=== PATIENT | female | born 2000 | race Caucasian/White ===

== ENCOUNTER 2024-08-07 20:55 | Emergency (ER) | payer OTHER, SELFPAY ==
[2024-08-07 21:04] VITALS: BP 128/90; PULSE 74; TEMP 36.6; O2SAT 96; BMI 44.5
--- NOTE | 2024-08-07 21:21 | ED.GENADUL1 ---
HPI HPI - General Adult General Chief complaint: Ear Stated complaint: EAR PAIN Time Seen by Provider: 08/07/24 21:07 Source: patient Mode of arrival: walk-in Limitations: no limitations History of Present Illness HPI narrative: Patient presenting to the emergency department for evaluation of left ear pain. Patient states approximately week ago she noted she was having left ear pain. Was seen by her PCP, started on clindamycin. He states that she did not have an ear infection, but the ear was full, filled with fluid. She states that over the last week the pain has persisted, and over the last day or 2 she feels like the pain is just a throbbing aching sensation in the left ear, and it feels like hearing through that side is very muffled. No acute changes today. No blurry vision, double vision, no pain in the back of her head or the neck noted, time Related Data Previous Rx's ?Medication ?Instructions ?Recorded naproxen 500 mg tablet 500 mg PO Q12H PRN pain #20 tabs 08/07/24 prednisone 50 mg tablet 50 mg PO DAILY 5 days #5 tabs 08/07/24 Allergies Allergy/AdvReac Type Severity Reaction Status Date / Time No Known Drug Allergies Allergy Verified 08/07/24 21:08 Opioid HPI Opioid Management Most Recent Opioid Data: Last ED Pain Assessment 08/07/24 21:22 Review of Systems ROS Narrative Negative unless otherwise stated in the HPI PFSH PFSH Social History Little interest or pleasure in doing things: not at all Feeling down, depressed, or hopeless: not at all Exam Narrative Exam Narrative: General: NAD, AAOx3, no distress HEENT: NCAT, mmm, right side TMs normal, left TM hyperemic, fluid without purulence, no infection noted, no bulging of the TM, positive cone of light was noted, no lymphangitis/lymphedema, midline uvula, no exudates, normal tonsils without hypertrophy or exudates Neck: Supple, no LAD, negative Kernig/Brudzinski, non meningeal, no bruit Constitutional Vital Signs, click to edit/add: Last Vital Signs Temp 97.8 F 08/07/24 21:04 Pulse 74 08/07/24 21:04 Resp 16 08/07/24 21:04 BP 128/90 08/07/24 21:04 Pulse Ox 96 08/07/24 21:04 O2 Del Method Room Air 08/07/24 21:04 Course Vital Signs Vital signs: Vital Signs Temperature 97.8 F 08/07/24 21:04 Pulse Rate 74 08/07/24 21:04 Respiratory Rate 16 08/07/24 21:04 Blood Pressure 128/90 08/07/24 21:04 Pulse Oximetry 96 08/07/24 21:04 Oxygen Delivery Method Room Air 08/07/24 21:04 Temperature 97.8 F 08/07/24 21:04 Pulse Rate 74 08/07/24 21:04 Respiratory Rate 16 08/07/24 21:04 Blood Pressure 128/90 08/07/24 21:04 Pulse Oximetry 96 08/07/24 21:04 Oxygen Delivery Method Room Air 08/07/24 21:04 Medical Decision Making MDM Narrative Medical decision making narrative: I discussed with patient that she has potential eustachian tube dysfunction, she is currently on clindamycin, but no signs or symptoms of otitis media. Will assist with steroid and anti-inflammatory packs. Advanced guidance has been given. Vss, pex is benign at this time. Pt to fu with pcp 1-2 days for reeval, rter should sx worsen, persist or become worrysome in any way. All incidental laboratory studies, EKG, radiologic findings have been noted and discussed with patient. Patient was reevaluated with a benign exam at this time. Pt expressed understanding and agreement with plan of care at this time. Will fu as planned. Pt stable for discharge. Discharge Plan Discharge Chief Complaint: Ear Clinical Impression: Dysfunction of eustachian tube Patient Disposition: Home, Self-Care Time of Disposition Decision: 21:24 Condition: Good Prescriptions / Home Meds: New prednisone 50 mg tablet 50 mg PO DAILY 5 Days Qty: 5 0RF naproxen 500 mg tablet 500 mg PO Q12H PRN (Reason: pain) Qty: 20 0RF Print Language: [place] Instructions: Fluid In The Ear (Serous Otitis Media) (ED) Additional Instructions: Follow-up with your PCP in the next 1 to 2 days. Return to the emergency department should symptoms worsen or become worrisome in any way. Referrals: Tuan Booker DO [Primary Care Provider] - 1 week
[2024-08-07] MEDS: METHYLPREDNISOLONE SOD SUCC PF 125 MG/2 ML VIAL IM (21:37)
[2024-08-07] MEDS: KETOROLAC TROMETHAMINE 30 MG/ML VIAL 15 MG IM (21:38)
== END 2024-08-07 21:44 | disposition home or self-care (01) ==
PROVIDERS: Emergency Provider Emergency Medicine; PCP Family Medicine
DX: H69.92 Unspecified Eustachian tube disorder, left ear (principal)
CPT/HCPCS: 96372; 99284; J1885; J2919

== ENCOUNTER 2025-05-24 23:03 | Emergency (ER) | payer OTHER, SELFPAY ==
--- OUTSIDE RECORDS SUMMARY | 2017-08-27 07:56 | XMS_ITS | Continuity of Care Document ---
Author Organization [facility] Address [address] [place] [address] Phone Care Team Providers Care Museum Preparator Name Role Phone Zoran Handy MD Unavailable Unavailable Advance Directives Directive Yes / No Effective Date File Name No Information Encounters Encounter Description Practice Location Reason(s) For Visit Diagnoses Date Provider Providers Copied on Encounter [facility], [address] [place], [place], [id number], [place] tel:[phone] [facility] No Information Ole Meehan. [address], [place], [id number], [place]. tel:[phone] Family History Family Member Type Diagnosis Age At Onset No Information Payers Payer name Insurance type Covered green party ID Authoriza tion(s) No Information Social [...]
[2025-05-24] VITALS (7 sets, daily range): BP systolic 112–123; BP diastolic 78–84; PULSE 72; TEMP 36.9; O2SAT 96–100; BMI 43.1
--- OUTSIDE RECORDS SUMMARY | 2025-05-24 23:12 | XMS_ITS | Patient Health Record ---
Author Organization [facility] Address [address] [address] Support Name Relationship Address Phone Jaylyn Crawford Guarantor Unknown Unavailab le Reason For Referral No Information Plan Of Treatment No Information Insurance Providers Payer Name Payer Address Payer Phone Subscriber Number Group Number Insured Name Patient Relationship to Insured Coverage Start Date Coverage End Date [employer] [address] [address] [place] [address] [id number] Jaylyn Pizano Self - patient is the insured
--- OUTSIDE RECORDS SUMMARY | 2025-05-24 23:12 | XMS_ITS | Encounter Summary ---
Author Organization [facility] Address [address] [place] [address] Care Team Providers Care Certified Pediatric Nurse Practitioner Name Role Phone Tuan Booker DO Primary Care Provider [phone] Herman Thomas DO Unavailable Encounter Details Date Type Department Care Team (Late st Contact Info) Description 10/19/2024 External Result Encounter [facility] External Department Unsolicited Herman Thomas, DO [address] [place] [address] Social History Tobacco Use Types Packs/Day Years Used Date Smoking Tobacco: Never Smokeless Tobacco: Never Alcohol Use Standard Drinks/Week Comments Never 0 (1 standard drink = 0.6 oz pur e alcohol) Caffeine: none Comments Unknown Sex and Gender Information Value Date Recorded Sex Assigned at Not on file Legal Sex Female 6:51 PM EDT Gender Identity Not on file Sexual Orientation Not on file documented as of this encounter Plan of Treatment Not on file documented as of this encounter Procedures Procedure Name Priority Date/Time Associated Diagnosis Comments ECG 12-LEAD 10/19/2024 5:03 PM EST documented in this encounter Results * ECG 12 lead (10/19/2024 5:03 PM EST) 10/19/2024 5:03 PM EST [facility] - 10/20/2024 2:54 PM EST [facility] [address] [address] Electrocardiograph Report Signed Patient: Jaylyn Crawford MR#: [id number] : 2000 Acct:[id number] Age/Sex: 24 / F ADM Date: 10/19/24 Loc: PS Room: Type: DEP CLI Attending Dr: Herman Thomas DO Ordering Provider: Herman Thomas DO Date of Service: 10/19/24 ECG/ECG 12 lead ECG: pst Copies to: Test Reason : Blood Pressure : */* mmHG Vent. Rate : 91 BPM Atrial Rate : 91 BPM P-R Int : 154 ms QRS Dur : 94 ms QT Int : 374 ms P-R-T Axes : 46 76 15 degrees QTcB Int : 460 ms Normal sinus rhythm Normal ECG No previous ECGs available Confirmed by Marcos Trinh ([id number]) on 10/20/2024 2:54:29 PM Referred By: Electronically Signed By: Marcos Trinh Transcribed By: MUS Signed By Marcos Trinh MD 10/20/24 1454 Procedure Note Jefe Trinh MD - 10/20/2024 [facility] [address] [place] [address] [place] [address] Electrocardiograph Report Signed Patient: Jaylyn Crawford MMR#: [id number] : 2000Acct:[id number] Age/Sex: 24 / FADM Date: 10/19/24 Loc: PS Room:Type: DEP CLI Attending Dr: Herman Thomas DO Ordering Provider: Herman Thomas DO Date of Service: 10/19/24 ECG/ECG 12 lead ECG: pst Copies to: Test Reason : Blood Pressure : */* mmHG Vent. Rate : 91 BPM Atrial Rate : 91 BPM P-R Int : 154 ms QRS Dur : 94 ms QT Int : 374 ms P-R-T Axes : 46 76 15 degrees QTcB Int : 460 ms Normal sinus rhythm Normal ECG No previous ECGs available Confirmed by Marcos Trinh ([id number]) on 10/20/2024 2:54:29 PM Referred By: Electronically Signed By: Marcos Trinh Transcribed By: MUS Signed By Marcos Trinh MD 10/20/24 1454 us Herman Thomas DO ECG ORDERABLES Final Resul t [facility] [address] [place] [address], documented in this encounter Visit Diagnoses Not on filedocumented in this encounter Care Teams Certified Pediatric Nurse Practitioner Relationship Specialty Start Date End Date Tuan Booker DO [address] [place] [id number] PCP - General 10/18/24 Herman Thomas, DO [address] [place] [address] Otolaryngology 10/18/24 documented as of this encounter
--- OUTSIDE RECORDS SUMMARY | 2025-05-24 23:12 | XMS_ITS | CCD ---
Author Organization [facility] Care Team Providers Care Physician Extender Name Role Phone DR TUAN HAAS Attending Unavailable WALDO, DR DICKERSON Consulting Unavailable DR TUAN HAAS Admitting Unavailable TUAN HAAS Primary Care Physician [phone] Rosmery PHAM Unavailable Rosmery Camacho Unavailable Tuan Haas Unavailable DO Tuan Haas Primary Care Provider DO Tuan Haas Attending Provider DO Tuan Haas Primary Care Provider DO Tuan Haas Attending Provider You Wilkerson Admitting Unavailable RheaYou valdez Attending Unavailable RheaYou valdez Admitting Unavailable RheaYou Attending Unavailable Russel SPANN Admitting Unavailable Russel SPANN Attending Unavailable RheaYou Attending Unavailable RheaYou Admitting Unavailable RheaYou Admitting Unavailable RheaYou Attending Unavailable RheaYou valdez Admitting Unavailable RheaYou valdez Attending Unavailable RheaYou valdez Attending Unavailable RheaYou valdez Admitting Unavailable RheaYou valdez Admitting Unavailable RheaYou Attending Unavailable Jose Tovar H Attending Unavailable Melissa Yates Attending Unavailable RheaYou valdez Attending Unavailable RheaYou valdez Admitting Unavailable RheaYou valdez Attending Unavailable RheaYou valdez Attending Unavailable RheaYou valdez Admitting Unavailable RheaYou valdez Attending Unavailable Rhea, You D Admitting Unavailable Rhea, You Greco Attending Unavailable Rhea, You D Admitting Unavailable Rhea, You D Attending Unavailable Rhea, You D Admitting Unavailable Rhea, You D Attending Unavailable Rhea, You D Admitting Unavailable Rhea, You D Attending Unavailable Rhea, You D Admitting Unavailable Rhea, You D Attending Unavailable Rhea, You D Attending Unavailable Rhea, You D Attending Unavailable Rhea, You D Admitting Unavailable Rhea, You Greco Attending Unavailable Rhae, You D Admitting Unavailable Rhea, You Greco Attending Unavailable Rhea, You Greco Admitting Unavailable Unavailable Primary Care Provider Unavailabl e Tuan Haas DO Primary Care Provider Waldo FLORES, Tuan Attending Provider Tuan Haas MD Primary Care Provider [phone] Murally DO, Herman Lui Unavailable Murally DO, Herman Attending Provider [phone] Tuan Haas Admitting Unavailable Kuns, Tuan Attending Unavailable Kuns, Tuan Primary Care Unavailable Kuns, Tuan Attending Unavailable Kuns, Tuan Primary Care Unavailable Kuns, Tuan Admitting Unavailable Kuns, Tuan Primary Care Unavailable Murcek, Herman Attending Unavailable Murcek, Herman Admitting Unavailable Kuns, Tuan Admitting Unavailable Kuns, Tuan Attending Unavailable Kuns, Tuan Primary Care Unavailable Murcek, Herman Attending Unavailable Murcek, Herman Admitting Unavailable KunTuan greer DO Primary Care Provider Rhea, You Greco Admitting Unavailable Rhea, You Greco Attending Unavailable MURCEK, HERMAN Lui Attending Unavailable KUNSTUAN Referring Unavailable MURCEK, HERMAN Lui Attending Unavailable FELTSHEMAR COLEY Attending Unavailable MURCEK, HERMAN Lui Attending Unavailable MURCEK, HERMAN Lui Attending Unavailable Rhea, You Greco Attending Unavailable Rhea, You Greco Admitting Unavailable Rhea, You Greco Attending Unavailable Rhea, You Greco Admitting Unavailable Medications Current Medications Medication Drug Class(es) Dates Sig (Normalized) Sig (Original) amoxicillin 500 mg / clavulanate 125 mg oral tablet (9 sources) Penicillin-class Antibacterial Start: 10-28-2024 amoxicillin-clavu lanate (Augmentin) 500-125 MG tablet 10/28/2024 Active Start: 09-09-2024 End: 10-11-2024 take 1 tablet by mouth twice daily Amoxicillin-Pot Clavulanate 875-125 mg tablet Discontinued 1 TAB PO Twice daily September 09, 2024 12:00am October 11, 2024 9:34am atropine sulfate 0.025 mg / diphenoxylate hydrochloride 2.5 mg oral tablet (4 sources) Anticholinergic, Cholinergic Muscarinic Antagonist, Antidiarrheal Start: 10-31-2019 Lomotil oral tablet 2 tab(s), Oral, QID for loose stools, 24 tab(s), Refill(s) 0 Start Date: 10/31/19 Status: Ordered Augmentin Tablets 875 MG (7 sources) Start: 09-11-2021 take 1 tablet by mouth every twelve hours Augmentin Tablets 875 MG 1 tablet oral bid for 10 days Sep, Active cephalexin 500 mg oral tablet (20 sources) Cephalosporin Antibacterial Start: 09-16-2022 take 1 tablet by mouth every eight hours Cephalexin 500 MG 1 tablet Orally Three times a day for 10 days Sep, Active Start: 06-29-2021 take 1 capsule by [facility] every eight hours Cephalexin 500 MG 1 capsule Orally TID for 10 days Jun, Active Start: 09-03-2018 take 1 capsule by [facility] every twelve hours Keflex 500 mg Cap 500 mg = 1 cap(s), Oral, q12hr, # 20 cap(s), Refills(s) 0, Pharmacy: [facility] [id number] Start Date: 09/03/18 Status: Ordered Cimetidine (10 sources) Histamine-2 Receptor Antagonist Start: 03-10-2022 clindamycin 10 mg/ml topical lotion (14 sources) Lincosamide Antibacterial Start: 09-11-2023 clindamycin (Cleocin T) 1 % lotion Indications: Acne vulgaris Apply thin later to affected areas on the body during flares, 30 day supply 60 mL 11 09/11/2023 Active ferrous sulfate 325 mg oral tablet (8 sources) Start: 09-09-2024 take 1 tablet by mouth every other day Ferrous Sulfate (Feosol) 325 mg (65 mg iron) tablet Active 325 MG PO Q2D September 09, 2024 12:00am Start: 09-09-2024 Ferrous Sulfat e (Feosol) 325 mg (65 mg iron) tablet Active 325 MG PO .Every 3 Days September 09, 2024 12:00am Start: 07-20-2018 take 1 tablet by marifer th once daily Slow Fe (as elemental iron) 45 mg oral tablet, extended release 45 mg = 1 tab(s), Oral, Daily, # 30 tab(s), Refills(s) 0, Pharmacy: [facility] [id number] Start Date: 07/20/18 Status: Ordered Folinic-Plus 4-50-2 MG (4 sources) Folinic-Plus 4-5 0-2 MG as directed Orally Active Folinic-Plus oral tablet (15 sources) Start: 3 Folinic-Plus oral tablet Refill(s) 0 Start Date: 01/01/23 Status: Ordered ibuprofen 600 mg oral tablet (20 sources) Nonsteroidal Anti-inflammatory Drug Start: 4 take 1 tablet by mouth every six hours ibuprofen 600 mg Tab 600 mg = 1 tab(s), Oral, q6hr, # 15 tab(s), Refills(s) 0, Pharmacy: [id number], 170.1, cm, 07/12/24 7:12:00 EST, Height/Length Dosing, 139, kg, 07/07/24 12:56:00 EST, Weight Dosing Start Date: 07/14/24 Status: Ordered Quantity: 15.0 Unit: tab(s) Repeat number: 1 Start: 05-28-2023 take 1 tablet by marifer every six hours ibuprofen 600 mg Tab 600 mg = 1 tab(s), Oral, q6hr, # 15 tab(s), Refills(s) 0, Pharmacy: [facility] #[id number], 170.2, cm, 05/26/23 7:59:00 EDT, Height/Length Dosing, 137.5, kg, 05/26/23 7:59:00 EDT, Weight Dosing Start Date: 05/28/23 Status: Ordered take 1 tablet by marifer three times daily at mealtime as needed Ibuprofen 800 MG 1 tablet with food or milk as needed Orally Three times a day as needed Active Ibuprofen 800 MG 1 tablent Orally every 4-6 hours as needed Active metoclopramide 10 mg oral tablet (8 sources) Dopamine-2 Receptor Antagonist Start: 12-03-2023 take 1 tablet by mouth every six hours Reglan 10 mg Tab 10 mg = 1 tab(s), Oral, q6hr, # 12 tab(s), Refills(s) 0, Pharmacy: [facility] [id number], 170, cm, 12/03/23 22:08:00 EDT, Height/Length Dosing, 134.5, kg, 12/03/23 22:08:00 EDT, Weight Dosing Start Date: 12/03/23 Status: Ordered 24 hr metoprolol succinate 25 mg extended release oral tablet (13 sources) beta-Adrenergic Alejandra Start: 10-11-2024 End: 10-19-2024 take 1 tablet by mouth once daily metoprolol succinate XL (Toprol-XL) 25 MG 24 hr tablet Take 25 mg by mouth Daily 10/11/2024 Active modafinil 100 mg oral tablet (11 sources) Sympathomimetic-li ke Agent Start: 05-18-2021 take 1 tablet by mouth every twenty-four hours Modafinil 100 MG 1 tablet in the morning Orally Once a day May, Active naproxen 500 mg oral tablet (4 sources) Nonsteroidal Anti-inflammatory Drug Start: 01-30-2021 take 1 tablet by mouth twice daily at mealtime naproxen 500 mg Tab 500 mg = 1 tab(s), Oral, BID, with food, # 14 tab(s), Refills(s) 0 Start Date: 01/30/21 Status: Ordered norethindrone 0.35 mg oral tablet (20 sources) Start: 12-31-2024 take 1 tablet by mouth once daily Jencycla 0.35 MG tablet Take 1 tablet by mouth Daily 12/31/2024 Active Start: 09-09-2024 End: 10-19-2024 take 1 tablet by mouth once daily at bedtime Norethindrone (Contraceptive) (Incassia) 0.35 mg tablet Active 0.35 MG PO Daily at bedtime October 19, 2024 12:00am take 1 tablet by marifer th every twenty-four hours Norlyda 0.35 MG 1 tablet Orally Once a day Active ofloxacin 3 mg/ml ophthalmic solution (1 source) Quinolone Antimicrobial Start: 01-01-2023 End: 01-08-2023 ofloxacin Opth 0.3% Kim 2 drop(s), OPTH, QID for 7 day(s), 5 mL, Refill(s) 0, [facility] #[id number], 169, cm, 01/01/23 12:32:00 EDT, Height/Length Dosing, 127, kg, 01/01/23 12:32:00 EDT, Weight Dosing Start Date: 01/01/23 Stop Date: 01/08/23 Status: Ordered omeprazole 20 mg delayed release oral capsule (20 sources) Proton Pump Inhibitor Start: 11-01-2024 omeprazo le (PriLOSEC) [address] capsule 11/01/2024 Active Start: 01-01-2023 End: 10-19-2024 take 1 capsule by mouth once daily in the morning Omeprazole 20 mg capsule,delayed release(DR/EC) Active 20 MG PO Every morning October 19, 2024 12:00am ondansetron 4 mg oral tablet (11 sources) Serotonin-3 Receptor Antagonist Start: 08-27-2021 take 1 tablet by mouth every twenty-four hours Ondansetron HCl 4 MG 1 tablet Orally Once a day for 30 day(s) Aug, Active Start: 10-31-2019 take 1 tablet by marifer th three times daily Zofran ODT 4 mg Tab 4 mg = 1 tab(s), Oral, TID, # 8 tab(s), Refills(s) 0 Start Date: 10/31/19 Status: Ordered predniSONE 20 mg oral tablet (6 sources) Start: 09-16-2022 predniSONE 20 MG 1 tablet with food or milk Orally 1 tablet twice a day x 5 days , 1 tablet once a day x 5 days for 10 days Sep, Active Multivitamins (20 sources) Start: 10-18-2016 take 1 tablet by mouth once daily Multivitamins 1 tab(s), Oral, Daily, Refill(s) 0, Prophylaxis Start Date: 10/18/16 Status: Ordered Repeat number: 1 Start: 10-18-2016 take 1 tablet by marifer th once daily Multivitamins 1 tab(s), Oral, Daily, Refill(s) 0, Prophylaxis Start Date: 10/18/16 Status: Ordered MV-Min-Fe Fum-FA-DH A ( 1 PO) (14 sources) MV-Min- Fe Fum-FA-DHA ( 1 PO) Take by mouth Active MV-Min- Fe Fum-FA-DHA ( 1 PO) Take by mouth. Active promethazine hydrochloride 12.5 mg rectal suppository (1 source) Phenothiazine Start: 02-05-2022 take 12.5 mg rectal route every eight hours Phenergan 12.5 mg Supp 12.5 mg = 1 supp, Rectal, q8hr, # 6 EA, Refills(s) 0, Pharmacy: [facility] #[id number], 168, cm, 02/05/22 18:27:00 EDT, Height/Length Dosing, 114, kg, 02/05/22 18:27:00 EDT, Weight Dosing Start Date: 02/05/22 Status: Ordered tobramycin 3 mg/ml ophthalmic solution (10 sources) Aminoglycoside Antibacterial Start: 06-29-2021 take 1 drop(s) into the eye(s) every four hours Tobramycin 0.3 % 1 drop into affected eye Ophthalmic every 4 hrs Jun, Active Start: 06-29-2021 traMADol hydrochloride 50 mg oral tablet (4 sources) Opioid Agonist Start: 06-17-2022 take 1 tablet by mouth twice daily as needed traMADol HCl 50 MG 1 tablet as needed Orally BID as needed Jun, Active Start: 04-03-2022 take 1 tablet by marifer th twice daily as needed traMADol HCl 50 MG 1 tablet as needed Orally BID as needed Apr, Active Zofran ODT 4 mg Tab-Dis (1 source) Start: 02-05-2022 take 1 tablet by mouth every eight hours Zofran ODT 4 mg Tab-Dis 4 mg = 1 tab(s), Oral, q8hr, # 12 tab(s), Refills(s) 0, Pharmacy: [facility] #[id number], 168, cm, 02/05/22 18:27:00 EDT, Height/Length Dosing, 114, kg, 02/05/22 18:27:00 EDT, Weight Dosing Start Date: 02/05/22 Status: Ordered Completed/Discontinued Medications Medication Drug Class(es) Dates Sig (Normalized) Sig (Original) aspirin 81 mg delayed release oral tablet (9 sources) Platelet Aggregation Inhibitor, Nonsteroidal Anti-inflammatory Drug Start: 08-04-2024 End: 10-19-2024 take 1 tablet by mouth once daily Aspirin 81 mg tablet,delayed release (DR/EC) Discontinued 81 MG PO Daily August 04, 2024 12:00am October 19, 2024 5:10pm Start: 06-11-2018 take 1 tablet by marifer th once daily aspirin 81 mg oral tablet 81 mg = 1 tab(s), Oral, Daily, # 30 tab(s), Refills(s) 0, Blood Thinner Start Date: 06/11/18 Status: Ordered azithromycin 250 mg oral tablet (20 sources) Macrolide Antimicrobial Start: 01-28-2024 End: 09-09-2024 Azithromycin (Zithromax Z-Braxton) 250 mg tablet Discontinued 250 MG PO .COMPLEX August 04, 2024 12:00am September 09, 2024 2:47pm as directed zpak instructions Start: 07-14-2023 Zithromax Z-Pa k 250 MG as directed Orally as directed Sep, Active Start: 05-22-2021 Zithromax Z-Pa k 250 MG 2 tablet on the first day, then 1 tablet daily for 4 days Orally Once a day for 5 day(s) Jan, Active Start: 05-22-2021 benzoyl peroxide 0.05 mg/mg topical gel (17 sources) Start: 09-09-2024 End: 10-19-2024 Benzoyl Peroxide 5 % gel Discontinued TOPICAL September 09, 2024 12:00am October 19, 2024 5:10pm Start: 04-20-2024 benzoyl peroxi de 5 % gel Indications: Acne vulgaris Apply to face once a day, in the evening 30 day supply 60 g 11 04/20/2024 Active cefdinir 300 mg oral capsule (7 sources) Cephalosporin Antibacterial Start: 09-22-2024 End: 10-11-2024 take 1 capsule by mouth twice daily Cefdinir 300 mg capsule Discontinued 300 MG PO Twice daily 20 06September 22, 2024 12:00am October 11, 2024 9:34am Start: 08-04-2024 End: 09-09-2024 take 1 capsule by mouth once daily Cefdinir 300 mg capsule Discontinued 300 MG PO Daily August 04, 2024 12:00am September 09, 2024 2:47pm fluocinonide 0.5 mg/ml topical solution (17 sources) Corticosteroid Start: 09-09-2024 End: 10-19-2024 Fluocinonide 0.05 % solution Discontinued TOPICAL September 09, 2024 12:00am October 19, 2024 5:11pm Start: 04-20-2024 fluocinonide ( Lidex) 0.05 % external solution Indications: Other seborrheic dermatitis Apply to affected areas on the scalp, up to once a day when flared, 30 day supply 60 mL 11 04/20/2024 Active fluticasone propionate 0.05 mg/actuat metered dose nasal spray (5 sources) Corticosteroid Start: 08-04-2024 End: 10-19-2024 Fluticasone Propionate (Flonase Allergy Relief) 50 mcg/actuation spray,suspension Discontinued 1 SPRAY INTRANASAL Every 12 hours August 04, 2024 12:00am October 19, 2024 5:11pm ketoconazole 20 mg/ml medicated shampoo (3 sources) Azole Antifungal Start: 09-11-2023 End: 04-20-2024 ketoconazole (NIZOral) 2 % shampoo Indications: Other seborrheic dermatitis Lather on scalp 2-3 x weekly, leave on 5 min before rinsing 120 mL 11 09/11/2023 04/20/2024 Discontinued (Ineffective) labetalol hydrochloride 100 mg oral tablet (4 sources) beta-Adrenergic Alejandra Start: 09-09-2024 End: 10-11-2024 take 1 tablet by mouth twice daily Labetalol 100 mg tablet Discontinued 100 MG PO Twice daily September 09, 2024 12:00am October 11, 2024 11:50am mupirocin 0.02 mg/mg topical ointment (15 sources) RNA Synthetase Inhibitor Antibacterial Start: 09-09-2024 End: 10-19-2024 Mupirocin 2 % ointment Discontinued 1 APPLIC TOPICAL Twice daily September 09, 2024 12:00am October 19, 2024 5:11pm Start: 05-09-2021 Mupirocin 2 % 1 application Externally Three times a day May, Not-Taking Start: 05-09-2021 Omeprazole 20 mg capsule,del ayed release(DR/EC) (5 sources) Start: 08-04-2024 End: 08-04-2024 Omeprazole 20 mg capsule,delayed release(DR/EC) Discontinued MG PO August 04, 2024 12:00am August 04, 2024 11:26am Problems Active Problems Problem Classification Problem Date Documented Da te Episodic/Chronic Anxiety disorders (20 sources) Anxiety; Translations: [Anxiety disorder, unspecified] Chronic Contraceptive and procreative management (2 sources) Encounter for other general counseling and advice on contraception; Translations: [Other general counseling and advice on contraceptive management] 10-11-2024 Episodic Deficiency and other anemia (4 sources) Anemia, unspecified; Translations: [Anemia, unspecified] 09-09-2024 Episodic Diabetes mellitus without complication (7 sources) Hyperglycemia; Translations: [Hyperglycemia, unspecified] Episodic Esophageal disorders (20 sources) Gastroesophageal reflux disease; Translations: [Gastro-esophageal reflux disease without esophagitis] Onset: 2 Resolved: 5 10-18-2016 Chronic Genitourinary symptoms and ill-defined conditions (1 source) Dysuria; Translations: [Dysuria] Onset: 4 Episodic Headache; including migraine (1 source) Migraine; Translations: [Migraine, unspecified, not intractable, without status migrainosus] Onset: 4 Chronic Hypertension complicating ; childbirth and the puerperium (2 sources) Unspecified maternal hypertension, complicating the puerperium; Translations: [Unspecified hypertension complicating , childbirth, or the puerperium, condition or complication] 10-11-2024 Chronic Inflammation; infection of eye (except that caused by tuberculosis or sexually transmitteddisease) (3 sources) Unspecified conjunctivitis; Translations: [Acute conjunctivitis of left eye] Onset: 1 Resolved: 1 Episodic Malaise and fatigue (20 sources) Fatigue; Translations: [Other fatigue] Episodic Miscellaneous mental health disorders (20 sources) Distorted body image; 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 Nausea and vomiting (1 source) Nausea and vomiting; Translations: [Nausea with vomiting, unspecified] Onset: 4 Episodic Nonspecific chest pain (7 sources) Chest pain; Translations: [Chest pain, unspecified] Episodic Osteoarthritis (20 sources) Arthritis; Translations: [Osteoarthritis] 11-06-2017 Chronic Other connective tissue disease (2 sources) Pain in right arm; Translations: [Pain in right arm] 02-07-2025 Episodic Other gastrointestinal disorders (1 source) Diarrhea; Translations: [Diarrhea, unspecified] Onset: 4 Episodic Other hematologic conditions (6 sources) History of anemia; Translations: [Personal history of diseases of the blood and blood-forming organs and certain disorders involving the immune mechanism] Episodic Other hematologic conditions (1 source) Personal history of diseases of the blood and blood-forming organs and certain disorders involving the immune mechanism Episodic Other non-traumatic joint disorders (20 sources) Hip pain; Translations: [Pain in right hip] Episodic Other non-traumatic joint disorders (3 sources) Pain in right wrist Onset: 2 Resolved: 2 Episodic Other non-traumatic joint disorders (1 source) Pain in unspecified hip Episodic Other nutritional; endocrine; and metabolic disorders (20 sources) Obesity; Translations: [Obesity, unspecified] Chronic Other nutritional; endocrine; and metabolic disorders (20 sources) Body mass index 40+ - severely obese; Translations: [Body mass index (BMI) 40.0-44.9, adult] Chronic Other nutritional; endocrine; and metabolic disorders (13 sources) Body mass index 30+ - obesity; Translations: [Obesity, unspecified] Onset: 5 Resolved: 5 07-12-2024 Chronic Other conditions (1 source) [id number] at regardless of gestation period; Translations: [Other heavy for gestational age ] Onset: 4 Episodic Other and delivery including normal (17 sources) Normal ; Translations: [Encounter for supervision of normal , unspecified, unspecified trimester] Onset: 2 Episodic Other screening for suspected conditions (not mental disorders or infectious disease) (20 sources) Thyroid hormone tests abnormal; Translations: [Other specified abnormal findings of blood chemistry] Onset: 2 Resolved: 2 Episodic Other upper respiratory disease (20 sources) Seasonal allergic rhinitis; Translations: [Other seasonal allergic rhinitis] Chronic Other upper respiratory infections (20 sources) Acute pharyngitis, unspecified; Translations: [Acute upper respiratory infection, unspecified] Onset: 1 Resolved: 1 Episodic Otitis media and related conditions (5 sources) Otitis media, unspecified, left ear; Translations: [Unspecified otitis media] 08-04-2024 Episodic Residual codes; unclassified (1 source) General finding of observation of patient; Translations: [Other general symptoms and signs] Onset: 2 Episodic Residual codes; unclassified (2 sources) History of uterine scar from previous surgery; Translations: [History of uterine scar from previous surgery] Onset: 3 Episodic Spondylosis; intervertebral disc disorders; other back problems (20 sources) Arthropathy of lumbar facet joint; 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, lumbar region] Chronic Unclassified (3 sources) CONTACT W/AND (SUSP) EXPOS COVID-19; Translations: [CONTACT W/AND (SUSP) EXPOS COVID-19] Onset: 1 Unclassified (7 sources) Age mother conceived under 17( Confirmed ) 10-19-2016 Unclassified (20 sources) Age mother conceived under 17 10-19-2016 Unclassified (3 sources) Previous uterine scarring 07-07-2024 Past or Other Problems Problem Classification Problem Date Documented Date Episodic/Chronic Deficiency and other anemia (16 sources) Anemia; Translations: [Anemia, unspecified] Onset: 10-01-2024 Resolved: 10-01-2024 08-09-2024 Episodic Immunizations and screening for infectious disease (1 source) Contact with and (suspected) exposure to other viral communicable diseases; Translations: [Contact with and (suspected) exposure to other viral communicable diseases Z20.828] Onset: 06-28-2021 Resolved: 06-28-2021 Episodic Lymphadenitis (20 sources) Lymphadenopathy of head AND/OR neck; Translations: [Localized enlarged lymph nodes] Onset: 08-04-2024 Resolved: 10-01-2024 08-16-2024 Episodic Other and unspecified benign neoplasm (2 sources) Melanocytic nevus of scalp; Translations: [Melanocytic nevi of scalp and neck] 04-20-2024 Episodic Other inflammatory condition of skin (2 sources) Seborrheic dermatitis; Translations: [Other seborrheic dermatitis] 04-20-2024 Episodic Other skin disorders (2 sources) Acne vulgaris; Translations: [Acne vulgaris] 04-20-2024 Episodic Other skin disorders (2 sources) Keratosis pilaris; Translations: [Other specified epidermal thickening] 04-20-2024 Episodic Other upper respiratory disease (1 source) Nasal congestion Onset: 09-11-2021 Resolved: 09-11-2021 Episodic Previous (4 sources) Maternal care for low transverse scar from previous delivery; Translations: [Maternal care for unspecified type scar from previous delivery] Onset: 05-26-2023 Episodic Residual codes; unclassified (1 source) Personal history of other complications of , childbirth and the puerperium Onset: 04-03-2022 Resolved: 04-03-2022 Episodic Residual codes; unclassified (11 sources) History of past delivery; Translations: [History of uterine scar from previous surgery] Onset: 10-01-2024 Resolved: 10-01-2024 10-01-2024 Episodic Skin and subcutaneous tissue infections (20 sources) Abscess; Translations: [Cutaneous abscess, unspecified] Onset: 09-09-2024 Resolved: 10-01-2024 Episodic Spondylosis; intervertebral disc disorders; other back problems (20 sources) Low back pain; Translations: [Low back pain] Onset: 09-06-2024 Resolved: 10-01-2024 08-16-2024 Episodic Unclassified (1 source) CONTACT W/AND (SUSP) EXPOS COVID-19; Translations: [CONTACT W/AND (SUSP) EXPOS COVID-19] Onset: 07-02-2021 Unclassified (20 sources) Onset: 01-31-2016 Resolved: 07-12-2024 10-30-2016 Unclassified (20 sources) Yeast (organism) 01-24-2018 Unclassified (20 sources) Unclassified (1 source) Cough R05.9 Onset: 09-11-2021 Resolved: 09-11-2021 Viral infection (1 source) Disease caused by 2019-nCoV; Translations: [COVID-19] Onset: 02-05-2022 Results Test Name Value Interpretation Reference Range Facility [facility] 05-12-2025 Beta hCG Qnt 75 mIU/mL High 1-3 [facility] Comment on above: Result Comment: 'F N ON < 1 - 3' ' 0.2 - 1 WEEK = 5 TO 50' ' 1 - 2 WEEKS = 50 - 500' ' 2 - 3 WEEKS = 100 - 5000' ' 3 - 4 WEEKS = 500 - 66881' ' 4 - 5 WEEKS = 1000 - 36299' ' 5 - 6 WEEKS = 22760 - 616480' ' 6 - 8 WEEKS = 86019 - 878710' ' 8 - 12 WEEKS = 51022 - 019710' Performed By: #### 2 [id number] #### [facility] [address] [place] [address] Progesteroneon 05-12-2025 Progesterone Lvl 0.33 ng/mL Invalid Interpretation Code [facility] Comment on above: Result Comment: 'F N ON FOLLICULAR = 0.10 - 0.60' 'LUTEAL = 3.00 - 17.5' 'MIDLUTEAL = 3.30 - 18.6' 'POST-MENOPAUSE = 0.10 - 0.40' '-FIRST TRIMESTER = 8.30 - 66.5' 'SECOND TRIMESTER = 18.9 - 66.1' 'THIRD TRIMESTER = 35.8 - 312.4' 'MALES = 0.14 - 2.06' Performed By: #### 2 [id number] #### [facility] [address] [place] [address] PAP [id number] 02-15-2025 PAP [phone] Note Invalid Interpretation Code [facility] Comment on above: Result Comment: TEST S RESULT FLAG UNITS REF RANGE LAB Clinician Provided Cytology Information Source.............Endocervix No. of containers..01 ThinPrep Vial DIAGNOSIS: 01 NEGATIVE FOR INTRAEPITHELIAL LESION OR MALIGNANCY. Specimen adequacy: 01 Satisfactory for evaluation. No endocervical component is identified. Performed by: 01 Kimberly Retana Global Compensation Director ([facility]) . 01 Note: Note 01 The Pap smear is a screening test designed to aid in the detection of premalignant and malignant conditions of the uterine cervix. It is not a diagnostic procedure and should not be used as the sole means of detecting cervical cancer. Both false-positive and false-negative reports do occur. Test Methodology: Note 01 This liquid based ThinPrep(R) pap test was screened with the use of an image guided system. . 01 The HPV DNA reflex criteria were not met with this specimen result therefore, no HPV testing was performed. FLAG LEGEND: L-Low Normal,H-High Normal,LL-Alert Low,HH-Alert High <-Panic Low,>-Panic High,A-Abnormal,AA-Critical Abnormal Performed at: [address] [facility] [id number] Mayelin Zapien MD, Performed at: [facility] [address] [id number] MD Rupali Dick Performed By: #### 3 [id number] #### [facility] [address] [place] [address] PAP [id number] 02-11-2025 Collection Technique BRUSH-SPATULA Normal [facility] Comment on above: Performed By: #### 3 [id number] #### [facility] [address] [place] [address] Gynecological Body Site ENDOCERVIX Normal [facility] Comment on above: Performed By: #### 3 [id number] #### [facility] [address] [place] [address] HCG,Urineon 10-26-2024 Beta HCG ( test) Ql (U) Negative Normal [facility] Comment on above: Result Comment: PERF ORMED BY: [facility] [address] [place] [place] [id number] PATHOLOGIST DENTAL INSURANCE BILLER CANDACE STANTON M.D. Performed By: #### U HCG #### [place] [id number] [facility] 10-26-2024 L - -------- Specimen: [id number] Received: 10/26/24 Status: SHEELA Barajas Num: [id number] Spec Type: Surgical Subm Dr: Herman Thomas DO Tissues: A Lymph Node - Regional Resection (RT POSTERIOR CERVICAL LYMPH ) Procedures: HE/6, Gross/Micro L5, BCL-2, CD10, CD20, CD3 -------- Age/ Patient Sex Location Account Attending Physician -------- Kassie Crawford / [place] [id number] Herman Thomas DO -------- SPEC NUM: [id number] RECD: 10/26/24 STATUS: SHEELA BARAJAS NUM: [id number] BREANNE: 10/26/24-0 [facility] DR: Herman Thomas DO ENTERED: 10/26/[address]: MAE TYPE: Surgical DEPT: S ORDERED: HE/6, Gross/Micro L5, BCL-2, CD10, CD20, CD3 ORDERED: HE/6, Gross/Micro L5, BCL-2, CD10, CD20, CD3 Supplemental Report Addendum 1 Entered: 11/01/24 Supplemental for findings of Flow Cytometry assessment from [facility] -No significant lymphoid immunophenotypic abnormalities Addendum Signed (signature on file) Eleanor Peterson MD 11/01/24 1321 -------- Pathological Diagnosis Right posterior cervical lymph nodes, excision: 9 lymph nodes, with reactive follicular lymphoid hyperplasia. No features of lymphoma or metastatic malignancy are identified. No granulomas are present. Comment: No specific etiology for this lymphadenopathy is identified, histologically. Correlation with the pending flow cytometry study is recommended. -------- Specimen: [id number] Received: 10/26/24 Status: SHEELA Barajas Num: [id number] Spec Type: Surgical Subm Dr: Herman Thomas DO Tissues: A Lymph Node - Regional Resection (RT POSTERIOR CERVICAL LYMPH ) Procedures: HE/6, Gross/Micro L5, BCL-2, CD10, CD20, CD3 -------- Patient: Kassie Crawford [id number] (Continued) -------- Specimen: Received: 10/26/24 (Continued) Signed (signature on file) Tesha Shipley MD 10/29/24 1426 -------- Specimen: Received: 10/26/24 Status: SHEELA Barajas Num: [id number] Spec Type: Surgical Subm Dr: Herman Thomas DO Tissues: A Lymph Node - Regional Resection (RT POSTERIOR CERVICAL LYMPH ) Procedures: HE/6, Gross/Micro L5, BCL-2, CD10, CD20, CD3 -------- Patient: Kassie Crawford [id number] (Continued) -------- Specimen: [id number] Received: 10/26/24 (Continued) Clinical Information None provided Gross Description Part A is received fresh labeled with the patients name, date of , and R posterior cervical lymph nodes is an ovoid sheet of fibrofatty tissue, 3 x 2 x 1 cm. Within the fibrofatty tissue are 9 lymph node candidates ranging from 0.3 to 1.5 cm in greatest dimension. [employer] Official sections from the 3 largest lymph node candidates are submitted in RPMI media and sent to [facility] for flow cytometry studies. The remainder of the lymph node candidates are entirely submitted with the adipose tissue retained. Cassettes: A1 Remainder of 1.5 cm in greatest dimension lymph node candidate A2 Remainder of 1.3 cm in greatest dimension lymph node candidate A3 Remainder of 0.8 cm in greatest dimension lymph node candidate A4 Trisected 0.7 cm in greatest dimension lymph node candidate A5 2 bisected 0.5 cm each in greatest dimension lymph node candidates (1 inked black and 1 inked blue) A6 Three 0.3 cm each in greatest dimension intact lymph node candidates (6, ss, [id number] A)J Microscopic Description Sections of the lymph node demonstrate follicular hyperplasia. The follicles are surrounded by mantle zones, the germinal centers are polarized and tingible body macrophages are present. There is no loss of sinus architecture. Some mantle zones have a slight onion skin appearance, however other features to suggest Castlemans disease are not seen. No dendritic cell proliferation or lollipop germinal centers are seen. Plasma cells are not increased. No Qvwn-Khmepvzno-ldpc cells are identified. No granulomas are seen. No neutrophilic infi (more content not included)... Normal [facility] Basic Metabolic Panelon 10-02 Anion gap [Moles/Vol] 10.6 mmol/L Normal 6.0-15.0 e [facility] Comment on above: Performed By: #### B MP #### [address] Calcium [Mass/Vol] 9.6 mg/dL Normal 8.6-10.3 [facility] Comment on above: Result Comment: PERF ORMED BY: [place] [address] PATHOLOGIST D[employer]AL INSURANCE BILLER CANDACE STANTON M.D. Performed By: #### B MP #### [address] Chloride [Moles/Vol] 106 mmol/L Normal 98-107 [facility] Comment on above: Performed By: #### B MP #### [address] CO2 [Moles/Vol] 25.7 mmol/L Normal 21.0-31.0 [facility] Comment on above: Performed By: #### B MP #### [address] Creatinine [Mass/Vol] 0.72 mg/dL Normal 0.60-1.20 [facility] Comment on above: Performed By: #### B MP #### [place] [address] [place] GFR/1.73 sq M.predicted MDRD (S/P/Bld) [Vol rate/Area] mL/min/{1.73_m2} Normal [facility] Comment on above: Performed By: #### B MP #### [facility] [address] Glucose [Mass/Vol] 90 mg/dL Normal 70-100 [facility] Comment on above: Result Comment: [place] Glucose Reference Range is dependent on time and content of last meal. Glucose of more than 200 mg/dL in a nonstressed, ambulatory subject supports the diagnosis of Diabetes Mellitus. ADA recommended reference range Performed By: #### B MP #### [facility] [address] Potassium [Moles/Vol] 4.3 mmol/L Normal 3.5-5.1 [facility] Comment on above: Performed By: #### B MP #### [address] Sodium [Moles/Vol] 138 mmol/L Normal 136-145 [facility] Comment on above: Performed By: #### B MP #### [address] Urea nitrogen [Mass/Vol] 19 mg/dL Normal 7-25 [facility] Comment on above: Performed By: #### B MP #### [address] Basic metabolic 1998 panelon 10-19-2024 Anion gap [Moles/Vol] 10.6 mmol/L 6.0 - 15.0 meq/L [facility] Calcium [Mass/Vol] 9.6 mg/dL 8.6 - 10. 3 mg/dL [facility] Chloride [Moles/Vol] 106 mmol/L 98 - 10 7 mmol/L [facility] CO2 [Moles/Vol] 25.7 mmol/L 21.0 - 31.0 mmol/L [facility] Creatinine (U) [Mass/Vol] 0.72 mg/dL 0.60 - 1.20 mg/dL [facility] ESTIMATED GFR mL/Min [facility] Glucose [Mass/Vol] 90 mg/dL 70 - 100 mg/dL [facility] Comment on above: Random Glucose Refer ence Range is dependent on time and content of last meal. Glucose of more than 200 mg/dL in a nonstressed, ambulatory subject supports the diagnosis of Diabetes Mellitus. ADA recommended reference range Potassium [Moles/Vol] 4.3 mmol/L 3.5 - 5.1 mmol/L [facility] Sodium [Moles/Vol] 138 mmol/L 136 - 145 mmol/L [facility] Urea nitrogen [Mass/Vol] 19 mg/dL 7 - 25 mg/dL [facility] Basophils Auto (Bld) [#/Vol] Ordered By: Herman Thomas on 10-19-2024 Basophils (Bld) [#/Vol] Automated basoph il count 0.0-0.2 [facility] Basophils/100 WBC Auto (Bld) Ordered By: Herman Thomas on 10-19-2024 Basophils/100 WBC (Bld) Automated basophil % . [facility] CBC W Auto Differential pane l (Bld)on 10-19-2024 Basophils (Bld) [#/Vol] 0.1 10*3/uL 0.0 - 0.2 10*3/uL [facility] Basophils/100 WBC Manual cnt (Syn fld) 1.1 % . [facility] Eosinophils (Bld) [#/Vol] 0.2 10*3/uL 0.0 - 0.45 10*3/uL [facility] Eosinophils/100 WBC Manual cnt (Syn fld) 2.4 % . [facility] Erythrocyte distribution width (RBC) [Ratio] 16.4 % High 11.9 - 15.3 % [facility] Hematocrit (Bld) [Volume fraction] 34 % 34.0 - 46.4 % [facility] Hemoglobin (Bld) [Mass/Vol] 11.1 g/dL Low 11.8 - 15.4 g/dL [facility] Interpretation and review of laboratory results Abnormal [facility] Lymphocytes (Bld) [#/Vol] 2.5 10*3/uL 1.00 - 4.8 10*3/uL [facility] Lymphocytes/100 WBC Manual cnt (Syn fld) 37 % . [facility] MCH (RBC) [Entitic mass] 23.8 pg Low 24.7 - 34.3 pg [facility] MCHC (RBC) [Mass/Vol] 32.6 g/dL 32.0 - 35.0 g/dL [facility] MCV (RBC) [Entitic vol] 72.9 fL Low 80 - 100 fL [facility] Monocytes (Bld) [#/Vol] 0.6 10*3/uL 0.0 - 0.8 10*3/uL [facility] Monocytes+Macrophages/1 00 WBC Manual cnt (Syn fld) 8.9 % . [facility] Neutrophils (Bld) [#/Vol] 3.5 10*3/uL 1.8 - 7.7 10*3/uL [facility] Neutrophils/100 WBC Manual cnt (Syn fld) 50.6 % . [facility] NRBC 0.2 /100{WBC} 0 - 0.5 /100{WBC} [facility] Platelet mean volume (Bld) [Entitic vol] 7.9 fL 6.3 - 10.7 fL [facility] Platelets (Bld) [#/Vol] 300 10*3/uL 150 - 450 10*3/uL [facility] RBC LM.HPF (Urine sed) [#/Area] 4.66 10*6/uL 3.60 - 5.00 10*6/uL [facility] WBC (Bld) [#/Vol] 6.8 10*3/uL 3.8 - 11.6 10*3/uL [facility] WBC LM.HPF (Urine sed) [#/Area] 6.8 10*3/uL 3.8 - 11.6 10*3/uL [facility] Calcium [Mass/volume] in Ser um or PlasmaOrdered By: Herman Thomas on 10-19-2024 Calcium [Mass/Vol] Calcium [Mass/volume ] in Serum or Plasma 8.6-10.3 [facility] Carbon dioxide, total [Moles /volume] in Serum or PlasmaOrdered By: Herman Thomas on 10-19-2024 CO2 [Moles/Vol] Carbon dioxide, tota l [Moles/volume] in Serum or Plasma 21.0-31.0 [facility] Chloride [Moles/volume] in S cole or PlasmaOrdered By: Herman Thomas on 10-19-2024 Chloride [Moles/Vol] Chloride [Moles/volume] in Serum or Plasma 98-107 [facility] Complete Blood Count Auto Di ffon 10-19-2024 Basophils (Bld) [#/Vol] 0.1 10*3/uL Normal 0.0-0.2 [facility] Comment on above: Result Comment: PERF ORMED BY: [place] [address] PATHOLOGIST D[employer]AL INSURANCE BILLER CANDACE STANTON M.D. Performed By: #### C BC #### [address] Basophils/100 WBC (Bld) 1.1 % Normal . [facility] Comment on above: Performed By: #### C BC #### [address] Eosinophils (Bld) [#/Vol] 0.2 10*3/uL Normal 0.0-0.45 [facility] Comment on above: Performed By: #### C BC #### [address] Eosinophils/100 WBC (Bld) 2.4 % Normal . [facility] Comment on above: Performed By: #### C BC #### [address] Erythrocyte distribution width (RBC) [Ratio] 16.4 % High 11.9-15.3 [facility] Comment on above: Performed By: #### C BC #### [address] Hematocrit (Bld) [Volume fraction] 34.0 % Normal 34.0-46.4 [facility] Comment on above: Performed By: #### C BC #### [address] Hemoglobin (Bld) [Mass/Vol] 11.1 g/dL Low 11.8-15.4 [facility] Comment on above: Performed By: #### C BC #### [address] Lymphocytes (Bld) [#/Vol] 2.5 10*3/uL Normal 1.00-4.8 [facility] Comment on above: Performed By: #### C BC #### [place] [address] [place] Lymphocytes/100 WBC (Bld) 37.0 % Normal . [facility] Comment on above: Performed By: #### C BC #### [address] MCH (RBC) [Entitic mass] 23.8 pg Low 24.7-34.3 [facility] Comment on above: Performed By: #### C BC #### [address] MCV (RBC) [Entitic vol] 72.9 fL Low 80-100 [facility] Comment on above: Performed By: #### C BC #### [address] Mean Corpuscular HGB Conc 32.6 g/dL Normal 32.0-35.0 [facility] Comment on above: Performed By: #### C BC #### [address] Monocytes (Bld) [#/Vol] 0.6 10*3/uL Normal 0.0-0.8 [facility] Comment on above: Performed By: #### C BC #### [address] Monocytes/100 WBC (Bld) 8.9 % Normal . [facility] Comment on above: Performed By: #### C BC #### [address] Neutrophils (Bld) [#/Vol] 3.5 10*3/uL Normal 1.8-7.7 [facility] Comment on above: Performed By: #### C BC #### [address] Neutrophils/100 WBC (Bld) 50.6 % Normal . [facility] Comment on above: Performed By: #### C BC #### [address] NRBC% 0.2 /100{WBC} Normal 0-0.5 [facility] Comment on above: Performed By: #### C BC #### [facility] [address] [place] [id number] [place] Platelet mean volume (Bld) [Entitic vol] 7.9 fL Normal 6.3-10.7 [facility] Comment on above: Performed By: #### C BC #### [facility] [address] [place] [address] [place] Platelets (Bld) [#/Vol] 300 10*3/uL Normal 150-450 [facility] Comment on above: Performed By: #### C BC #### [facility] [address] [place] [address] [place] RBC (Bld) [#/Vol] 4.66 10*6/uL Normal 3.60-5.00 [facility] Comment on above: Performed By: #### C BC #### [facility] [address] [place] [address] [place] WBC (Bld) [#/Vol] 6.8 10*3/uL Normal 3.8-11.6 [facility] Comment on above: Performed By: #### C BC #### [address] Creatinine [Mass/volume] in Serum or PlasmaOrdered By: Herman Thomas on 10-19-2024 Creatinine [Mass/Vol] Creatinine [Mass/volume] in Serum or Plasma 0.60-1.20 [facility] ECG 12 lead ECGon 10-19-2024 ECG 12 lead ECG [facility] Main [place] [address] [place] [address] Electrocardiograph Report Signed Patient: Kassie Crawford MR#: [id number] : 2000 Acct:[id number] Age/Sex: 24 / F ADM Date: 10/19/24 Loc: Room: Type: [facility] Attending Dr: Herman Thomas DO Ordering Provider: [...] previous ECGs available Confirmed by Marcos Trinh ([id number]) on 10/20/2024 2:54:29 PM Referred By: Electronically Signed By: Marcos Trinh Transcribed By: MUS Signed By Marcos Trinh MD 10/20/24 1454 Normal [facility] Eosinophils Auto (Bld) [#/Vo l]Ordered By: Herman Thomas on 10-19-2024 Eosinophils (Bld) [#/Vol] Automated eosinophil count 0.0-0.45 [facility] Eosinophils/100 WBC Auto (Bl d)Ordered By: Herman Thomas on 10-19-2024 Eosinophils/100 WBC (Bld) Automated eosinophil % . [facility] Erythrocyte distribution wid th Auto (RBC) [Ratio]Ordered By: Herman Thomas on 10-19-2024 Erythrocyte distribution width (RBC) [Ratio] Erythrocyte distribution width [Ratio] by Automated count High 11.9-15.3 [facility] Glucose [Mass/volume] in Ser um or PlasmaOrdered By: Herman Thomas on 10-19-2024 Glucose [Mass/Vol] Glucose [Mass/volume ] in Serum or Plasma 70-100 [facility] Comment on above: ADA recommended refe rence rangeRandom Glucose Reference Range is dependent on time and content of last meal. Glucose of more than 200 mg/dL in a nonstressed, ambulatory subject supports the diagnosis of Diabetes Mellitus. Hematocrit Auto (Bld) [Volum e fraction]Ordered By: Herman Thomas on 10-19-2024 Hematocrit (Bld) [Volume fraction] Hematocrit [Volume Fraction] of Blood by Automated count 34.0-46.4 [facility] Hemoglobin [Mass/volume] in BloodOrdered By: Herman Thomas on 10-19-2024 Hemoglobin (Bld) [Mass/Vol] Hemoglobin [Mass/volume] in Blood Low 11.8-15.4 [facility] Leukocytes [#/volume] correc keara for nucleated erythrocytes in Blood by Automated counOrdered By: Herman Thomas on 10-19-2024 WBC corrected for nucl RBC Auto (Bld) [#/Vol] Leukocytes [#/volume] corrected for nucleated erythrocytes in Blood by Automated coun 3.8-11.6 [facility] Lymphocytes Auto (Bld) [#/Vo l]Ordered By: Herman Thomas on 10-19-2024 Lymphocytes (Bld) [#/Vol] Lymphocytes [#/volume] in Blood by Automated count 1.00-4.8 [facility] Lymphocytes/100 WBC Auto (Bl d)Ordered By: Herman Thomas on 10-19-2024 Lymphocytes/100 WBC (Bld) Lymphocytes/100 leukocytes in Blood by Automated count . [facility] MCH Auto (RBC) [Entitic mass ]Ordered By: Herman Thomas on 10-19-2024 MCH (RBC) [Entitic mass] MCH [Entitic mass] by Automated count Low 24.7-34.3 [facility] MCHC Auto (RBC) [Mass/Vol]Or dered By: Herman Thomas on 10-19-2024 MCHC (RBC) [Mass/Vol] MCHC [Mass/volume] by Automated count 32.0-35.0 [facility] MCV Auto (RBC) [Entitic vol] Ordered By: Herman Thomas on 10-19-2024 MCV (RBC) [Entitic vol] MCV [Entitic vol ume] by Automated count Low 80-100 [facility] Monocytes Auto (Bld) [#/Vol] Ordered By: Herman Thomas on 10-19-2024 Monocytes (Bld) [#/Vol] Automated blood monocyte count 0.0-0.8 [facility] Monocytes/100 WBC Auto (Bld) Ordered By: Herman Thomas on 10-19-2024 Monocytes/100 WBC (Bld) Automated monocyte % . [facility] Neutrophils Auto (Bld) [#/Vo l]Ordered By: Herman Thomas on 10-19-2024 Neutrophils (Bld) [#/Vol] Neutrophils [#/volume] in Blood by Automated count 1.8-7.7 [facility] Neutrophils/100 WBC Auto (Bl d)Ordered By: Herman Thomas on 10-19-2024 Neutrophils/100 WBC (Bld) Automated neutrophil % . [facility] No Panel InformationOrdered By: Herman Thomas on 10-19-2024 Estimated GFR (CKD-EPI) > 60.0 mL/Min [facility] Creatinine Clearance (Chem N/A [facility] Nucleated erythrocytes [Pres ence] in Blood by Automated countOrdered By: Herman Thomas on 10-19-2024 Nucleated RBC Auto Ql (Bld) Nucleated erythrocytes [Presence] in Blood by Automated count 0-0.5 [facility] Platelet mean volume Auto (B ld) [Entitic vol]Ordered By: Herman Thomas on 10-19-2024 Platelet mean volume (Bld) [Entitic vol] Platelet mean volume [Entitic volume] in Blood by Automated count 6.3-10.7 [facility] Platelets Auto (Bld) [#/Vol] Ordered By: Herman Thomas on 10-19-2024 Platelets (Bld) [#/Vol] Platelets [#/vol ume] in Blood by Automated count 150-450 [facility] Potassium [Moles/volume] in Serum or PlasmaOrdered By: Herman Thomas on 10-19-2024 Potassium [Moles/Vol] Potassium [Moles/volume] in Serum or Plasma 3.5-5.1 [facility] RBC Auto (Bld) [#/Vol]Ordere d By: Herman Thomas on 10-19-2024 RBC (Bld) [#/Vol] Erythrocytes [#/volume] in Blood by Automated count 3.60-5.00 [facility] Serum or plasma anion gap de terminationOrdered By: Herman Thomas on 10-19-2024 Anion gap [Moles/Vol] Serum or plasma an ion gap determination 6.0-15.0 [facility] Sodium [Moles/volume] in Ser um or PlasmaOrdered By: Herman Thomas on 10-19-2024 Sodium [Moles/Vol] Sodium [Moles/volume ] in Serum or Plasma 136-145 [facility] Urea nitrogen [Mass/volume] in Serum or PlasmaOrdered By: Herman Thomas on 10-19-2024 Urea nitrogen [Mass/Vol] Urea nitrogen [Mass/volume] in Serum or Plasma 7-25 [facility] WBC Auto (Bld) [#/Vol]Ordere d By: Herman Thomas on 10-19-2024 WBC (Bld) [#/Vol] Leukocytes [#/volume ] in Blood by Automated count 3.8-11.6 [facility] Aerobic Cultureon 09-09-2024 Aerobic Culture Comment Left Inguina l Light Normal Skin Kary 2 Days Comment Left Inguinal Anaerobic Culture Results No Anaerobes Isolated 3 Days Comment Left Inguinal Gram Stain Result 1+ White Blood Cells No Bacteria Seen PERFORMED BY: [place] [address] PATHOLOGIST D[employer]AL INSURANCE BILLER CANDACE STANTON M.D. Normal [facility] Comment on above: Performed By: #### A SANGITA, DAMIR #### [address] [address] [facility] Aerobic cultureOrdered By: Lan Haas on 09-09-2024 Bacteria identified Aer cx Nom (Unsp spec) Aerobic culture [facility] Anaerobic cultureOrdered By: Tuan Haas on 09-09-2024 Bacteria identified Anaer cx Nom (Unsp spec) Anaerobic culture [facility] Gram Stainon 09-09-2024 Microscopic observation Gram stain Nom (Unsp spec) Comment Left Inguinal Gram Stain Result 1+ White Blood Cells No Bacteria Seen PERFORMED BY: [place] [address] PATHOLOGIST D[employer] INSURANCE BILLER CANDACE STANTON M.D. Normal [facility] Comment on above: Performed By: #### A SANGITA, DAMIR #### [place] [id number] [facility] Gram stain microscopyOrdered By: Tuan Haas on 09-09-2024 Microscopic observation Gram stain Nom (Unsp spec) Gram stain microscopy [facility] CT soft tissue neck wo conon 09-06-2024 CT soft tissue neck wo con [facility] Main [address] [address] [address] Scan Report Signed Patient: Kassie Crawford MR#: [id number] : 2000 Acct:[id number] Age/Sex: 24 / F ADM Date: 09/06/24 Loc: [facility] Room: Type: [facility] Attending Dr: Tuan Haas DO Copies to: Tuan Haas DO Ordering Provider: Tuan Haas DO Date of Service: 09/06/24 CT/CT soft tissue neck wo con: R59.0 - Localized enlarged lymph nodes CT soft tissue neck wo con 09/06/2024 3:00 PM SIGNS AND SYMPTOMS: R59.0 - Localized enlarged lymph nodes TECHNOLOGIST COMMENTS: TECHNIQUE: Multidetector CT axial slices of the soft tissues of the neck were obtained without IV contrast . Sagittal and coronal reformats were reconstructed. CT was performed with one or more of the following dose reduction techniques: Automated exposure control, adjustment of the mA and/or kV according to patient size, or use of iterative reconstruction technique. COMPARISON: None FINDINGS: There are multiple enlarged right-sided level 2B level 3.There are few enlarged left level 2 level 3 lymph nodes. There is moderate adenoidal hypertrophy. Otherwise the remainder of the nasopharyngeal, oropharynx, hypopharynx, glottic, and subglottic regions are maintained The parotid glands, submandibular, and the thyroid gland are within normal limits.. The visualized lung parenchyma shows no acute pathology. No suspicious osseous lesions. CT/CT soft tissue neck wo con IMPRESSION: Nonspecific bilateral adenopathy, predominantly right-sided. No definite etiology identified on this examination. Differential considerations include infectious etiologies. Clinical Follow-up is strongly recommended following medical treatment course to document resolution such as an 1 month. If clinical follow-up cannot be obtained, consider CT follow-up. Impression dictated by: Evangelista Kenyon M.D.09/06/2024 4:55 PM Dictation Location: [place] [address] Transcribed By: [facility] 09/06/241654 Dictated By: Evangelista Kenyon MD 09/06/24 1637 Signed By: 09/06/24 165 Normal [facility] Alanine aminotransferase [En zymatic activity/volume] in Serum or PlasmaOrdered By: Tuan Haas on 08-04-2024 ALT [Catalytic activity/Vol] Alanine aminotransferase [Enzymatic activity/volume] in Serum or Plasma [facility] Albumin [Mass/volume] in Ser um or Plasma by Bromocresol green (BCG) dye binding methoOrdered By: Tuan Haas on 08-04-2024 Albumin BCG dye [Mass/Vol] Albumin [Mass/volume] in Serum or Plasma by Bromocresol green (BCG) dye binding metho 3.5-5.7 [facility] Alkaline phosphatase [Enzyma tic activity/volume] in Serum or PlasmaOrdered By: Tuan Haas on 08-04-2024 ALP [Catalytic activity/Vol] Alkaline phosphatase [Enzymatic activity/volume] in Serum or Plasma 34-104 [facility] Aspartate aminotransferase [ Enzymatic activity/volume] in Serum or PlasmaOrdered By: Tuan Haas on 08-04-2024 AST [Catalytic activity/Vol] Aspartate aminotransferase [Enzymatic activity/volume] in Serum or Plasma 13-39 [facility] Basophils Auto (Bld) [#/Vol] Ordered By: Tuan Haas on 08-04-2024 Basophils (Bld) [#/Vol] Automated basoph il count 0.0-0.2 [facility] Basophils/100 WBC Auto (Bld) Ordered By: Tuan Haas on 08-04-2024 Basophils/100 WBC (Bld) Automated basophil % . [facility] Bilirubin.total [Mass/volume ] in Serum or PlasmaOrdered By: Tuan Haas on 08-04-2024 Bilirubin [Mass/Vol] Bilirubin.total [Mass/volume] in Serum or Plasma 0.3-1.0 [facility] Calcium [Mass/volume] in Ser um or PlasmaOrdered By: Tuan Haas on 08-04-2024 Calcium [Mass/Vol] Calcium [Mass/volume ] in Serum or Plasma 8.6-10.3 [facility] Carbon dioxide, total [Moles /volume] in Serum or PlasmaOrdered By: Tuan Haas on 08-04-2024 CO2 [Moles/Vol] Carbon dioxide, tota l [Moles/volume] in Serum or Plasma 21.0-31.0 [facility] Chloride [Moles/volume] in S cole or PlasmaOrdered By: Tuan Haas on 08-04-2024 Chloride [Moles/Vol] Chloride [Moles/volume] in Serum or Plasma High 98-107 [facility] Complete Blood Count Auto Di ffon 08-04-2024 Basophils (Bld) [#/Vol] 0.1 10*3/uL Normal 0.0-0.2 [facility] Comment on above: Result Comment: PERF ORMED BY: [place] [address] PATHOLOGIST [employer] BILLER CANDACE STANTON M.D. Performed By: #### C MP, MONOTEST, CBC #### [place] [address] [place] Basophils/100 WBC (Bld) 0.8 % Normal . T [facility] Comment on above: Performed By: #### C MP MONOTEST, CBC #### [address] Eosinophils (Bld) [#/Vol] 0.2 10*3/uL Normal 0.0-0.45 [facility] Comment on above: Performed By: #### C MP, MONOTEST, CBC #### [address] Eosinophils/100 WBC (Bld) 2.9 % Normal . [facility] Comment on above: Performed By: #### C MP MONOTEST, CBC #### [address] Erythrocyte distribution width (RBC) [Ratio] 17.0 % High 11.9-15.3 [facility] Comment on above: Performed By: #### C MP, MONOTEST, CBC #### [place] [address] [place] Hematocrit (Bld) [Volume fraction] 33.9 % Low 34.0-46.4 [facility] Comment on above: Performed By: #### C MP, MONOTEST, CBC #### [address] Hemoglobin (Bld) [Mass/Vol] 10.7 g/dL Low 11.8-15.4 [facility] Comment on above: Performed By: #### C MP MONOTEST, CBC #### [address] Lymphocytes (Bld) [#/Vol] 1.9 10*3/uL Normal 1.00-4.8 [facility] Comment on above: Performed By: #### C MP, MONOTEST, CBC #### [address] Lymphocytes/100 WBC (Bld) 29.7 % Normal . [facility] Comment on above: Performed By: #### C MP, MONOTEST, CBC #### [address] MCH (RBC) [Entitic mass] 23.1 pg Low 24.7-34.3 [facility] Comment on above: Performed By: #### C MP, MONOTEST, CBC #### [address] MCV (RBC) [Entitic vol] 73.4 fL Low 80-100 [facility] Comment on above: Performed By: #### C MP, MONOTEST, CBC #### [address] Mean Corpuscular HGB Conc 31.5 g/dL Low 32.0-35.0 [facility] Comment on above: Performed By: #### C MP, MONOTEST, CBC #### [address] Monocytes (Bld) [#/Vol] 0.5 10*3/uL Normal 0.0-0.8 [facility] Comment on above: Performed By: #### C MP, MONOTEST, CBC #### [place] [address] [place] Monocytes/100 WBC (Bld) 7.5 % Normal . [facility] Comment on above: Performed By: #### C MP, MONOTEST, CBC #### [address] Neutrophils (Bld) [#/Vol] 3.8 10*3/uL Normal 1.8-7.7 [facility] Comment on above: Performed By: #### C MP, MONOTEST, CBC #### [address] Neutrophils/100 WBC (Bld) 59.1 % Normal . [facility] Comment on above: Performed By: #### C MP, MONOTEST, CBC #### [address] NRBC% 0.1 /100{WBC} Normal 0-0.5 [facility] Comment on above: Performed By: #### C MP, MONOTEST, CBC #### [address] Platelet mean volume (Bld) [Entitic vol] 8.4 fL Normal 6.3-10.7 [facility] Comment on above: Performed By: #### C MP, MONOTEST, CBC #### [address] Platelets (Bld) [#/Vol] 317 10*3/uL Normal 150-450 [facility] Comment on above: Performed By: #### C MP, MONOTEST, CBC #### [address] RBC (Bld) [#/Vol] 4.62 10*6/uL Normal 3.60-5.00 [facility] Comment on above: Performed By: #### C MP, MONOTEST, CBC #### [address] WBC (Bld) [#/Vol] 6.5 10*3/uL Normal 3.8-11.6 [facility] Comment on above: Performed By: #### C MP, MONOTEST, CBC #### [address] Comprehensive Metabolic Pane britney 08-04-2024 Albumin [Mass/Vol] 4.2 g/dL Normal 3.5-5.7 [facility] Comment on above: Performed By: #### A ERC, GS #### [address] Albumin/Globulin [Mass ratio] 1.2 {ratio} Normal [facility] Comment on above: Performed By: #### A DAMIR QUESADA #### [address] ALP [Catalytic activity/Vol] 92 U/L Normal 34-104 [facility] Comment on above: Result Comment: PERF ORMED BY: [place] [address] PATHOLOGIST [employer] BILLER CANDACE STANTON M.D. Performed By: #### A DAMIR QUESADA #### [address] ALT [Catalytic activity/Vol] 18 U/L Normal 7-52 [facility] Comment on above: Performed By: #### A DAMIR QUESADA #### [address] Anion gap [Moles/Vol] 12.2 mmol/L Normal 6.0-15.0 [facility] Comment on above: Performed By: #### A DAMIR QUESADA #### [address] AST [Catalytic activity/Vol] 16 U/L Normal 13-39 [facility] Comment on above: Performed By: #### A DAMIR QUESADA #### [address] Bilirubin [Mass/Vol] 0.5 mg/dL Normal 0.3-1.0 [facility] Comment on above: Performed By: #### A SANGITA, GS #### [address] Calcium [Mass/Vol] 9.0 mg/dL Normal 8.6-10.3 [facility] Comment on above: Performed By: #### A SANGITA, GS #### [address] Chloride [Moles/Vol] 108 mmol/L High 98-107 [facility] Comment on above: Performed By: #### A SANGITA, GS #### [facility] [address] CO2 [Moles/Vol] 23.0 mmol/L Normal 21.0-31.0 [facility] Comment on above: Performed By: #### A SANGITA, GS #### [address] Creatinine [Mass/Vol] 0.81 mg/dL Normal 0.60-1.20 [facility] Comment on above: Performed By: #### A SANGITA, GS #### [facility] [address] [place] [address] [place] GFR/1.73 sq M.predicted MDRD (S/P/Bld) [Vol rate/Area] mL/min/{1.73_m2} Normal [facility] Comment on above: Performed By: #### A SANGITA, GS #### [place] [address] [place] Globulin (S) [Mass/Vol] 3.4 g/dL Normal [facility] Comment on above: Performed By: #### A SANGITA, GS #### [address] Glucose [Mass/Vol] 85 mg/dL Normal 70-100 [facility] Comment on above: Result Comment: [place] Glucose Reference Range is dependent on time and content of last meal. Glucose of more than 200 mg/dL in a nonstressed, ambulatory subject supports the diagnosis of Diabetes Mellitus. ADA recommended reference range Performed By: #### A SANGITA, GS #### [address] Potassium [Moles/Vol] 4.2 mmol/L Normal 3.5-5.1 [facility] Comment on above: Performed By: #### A SANGITA, GS #### [address] Protein [Mass/Vol] 7.6 g/dL Normal 6.4-8.9 [facility] Comment on above: Performed By: #### A ERC, GS #### [facility] [address] Sodium [Moles/Vol] 139 mmol/L Normal 136-145 [facility] Comment on above: Performed By: #### A DAMIR QUESADA #### [facility] [address] Urea nitrogen [Mass/Vol] 15 mg/dL Normal 7-25 [facility] Comment on above: Performed By: #### A DAMIR QUESADA #### [facility] [address] Creatinine [Mass/volume] in Serum or PlasmaOrdered By: Tuan Haas on 08-04-2024 Creatinine [Mass/Vol] Creatinine [Mass/volume] in Serum or Plasma 0.60-1.20 [facility] Eosinophils Auto (Bld) [#/Vo l]Ordered By: Tuan Haas on 08-04-2024 Eosinophils (Bld) [#/Vol] Automated eosinophil count 0.0-0.45 [facility] Eosinophils/100 WBC Auto (Bl d)Ordered By: Tuan Haas on 08-04-2024 Eosinophils/100 WBC (Bld) Automated eosinophil % . [facility] Erythrocyte distribution wid th Auto (RBC) [Ratio]Ordered By: Tuan Haas on 08-04-2024 Erythrocyte distribution width (RBC) [Ratio] Erythrocyte distribution width [Ratio] by Automated count High 11.9-15.3 [facility] Globulin Calc (S) [Mass/Vol] Ordered By: Tuan Haas on 08-04-2024 Globulin (S) [Mass/Vol] Serum globulin measurement by calculation (mass/volume) [facility] Glucose [Mass/volume] in Ser um or PlasmaOrdered By: Tuan Haas on 08-04-2024 Glucose [Mass/Vol] Glucose [Mass/volume ] in Serum or Plasma 70-100 [facility] Comment on above: ADA recommended refe rence rangeRandom Glucose Reference Range is dependent on time and content of last meal. Glucose of more than 200 mg/dL in a nonstressed, ambulatory subject supports the diagnosis of Diabetes Mellitus. Hematocrit Auto (Bld) [Volum e fraction]Ordered By: Tuan Haas on 08-04-2024 Hematocrit (Bld) [Volume fraction] Hematocrit [Volume Fraction] of Blood by Automated count Low 34.0-46.4 [facility] Hemoglobin [Mass/volume] in BloodOrdered By: Tuan Haas on 08-04-2024 Hemoglobin (Bld) [Mass/Vol] Hemoglobin [Mass/volume] in Blood Low 11.8-15.4 [facility] Leukocytes [#/volume] correc keara for nucleated erythrocytes in Blood by Automated counOrdered By: Tuan Haas on 08-04-2024 WBC corrected for nucl RBC Auto (Bld) [#/Vol] Leukocytes [#/volume] corrected for nucleated erythrocytes in Blood by Automated coun 3.8-11.6 [facility] Lymphocytes Auto (Bld) [#/Vo l]Ordered By: Tuan Haas on 08-04-2024 Lymphocytes (Bld) [#/Vol] Lymphocytes [#/volume] in Blood by Automated count 1.00-4.8 [facility] Lymphocytes/100 WBC Auto (Bl d)Ordered By: Tuan Haas on 08-04-2024 Lymphocytes/100 WBC (Bld) Lymphocytes/100 leukocytes in Blood by Automated count . [facility] MCH Auto (RBC) [Entitic mass ]Ordered By: Tuan Haas on 08-04-2024 MCH (RBC) [Entitic mass] MCH [Entitic mass] by Automated count Low 24.7-34.3 [facility] MCHC Auto (RBC) [Mass/Vol]Or dered By: Tuan Haas on 08-04-2024 MCHC (RBC) [Mass/Vol] MCHC [Mass/volume] by Automated count Low 32.0-35.0 [facility] MCV Auto (RBC) [Entitic vol] Ordered By: Tuan Haas on 08-04-2024 MCV (RBC) [Entitic vol] MCV [Entitic vol ume] by Automated count Low 80-100 [facility] Monocytes Auto (Bld) [#/Vol] Ordered By: Tuan Haas on 08-04-2024 Monocytes (Bld) [#/Vol] Automated blood monocyte count 0.0-0.8 [facility] Monocytes/100 WBC Auto (Bld) Ordered By: Tuan Haas on 08-04-2024 Monocytes/100 WBC (Bld) Automated monocyte % . [facility] Monoteston 08-04-2024 Monotest Negative Normal Negative [facility] Comment on above: Result Comment: PERF ORMED BY: [facility] [address] [place] [address] PATHOLOGIST [employer]URANCE BILLER CANDACE STANTON M.D. Performed By: #### C MP, MONOTEST, CBC #### [facility] [address] Neutrophils Auto (Bld) [#/Vo l]Ordered By: Tuan Haas on 08-04-2024 Neutrophils (Bld) [#/Vol] Neutrophils [#/volume] in Blood by Automated count 1.8-7.7 [facility] Neutrophils/100 WBC Auto (Bl d)Ordered By: Tuan Haas on 08-04-2024 Neutrophils/100 WBC (Bld) Automated neutrophil % . [facility] No Panel InformationOrdered By: Tuan Haas on 08-04-2024 Estimated GFR (CKD-EPI) > 60.0 mL/Min [facility] Creatinine Clearance (Chem N/A [facility] Nucleated erythrocytes [Pres ence] in Blood by Automated countOrdered By: Tuan Haas on 08-04-2024 Nucleated RBC Auto Ql (Bld) Nucleated erythrocytes [Presence] in Blood by Automated count 0-0.5 [facility] Platelet mean volume Auto (B ld) [Entitic vol]Ordered By: Tuan Haas on 08-04-2024 Platelet mean volume (Bld) [Entitic vol] Platelet mean volume [Entitic volume] in Blood by Automated count 6.3-10.7 [facility] Platelets Auto (Bld) [#/Vol] Ordered By: Tuan Haas on 08-04-2024 Platelets (Bld) [#/Vol] Platelets [#/vol ume] in Blood by Automated count 150-450 [facility] Potassium [Moles/volume] in Serum or PlasmaOrdered By: Tuan Haas on 08-04-2024 Potassium [Moles/Vol] Potassium [Moles/volume] in Serum or Plasma 3.5-5.1 [facility] Protein [Mass/volume] in Ser um or PlasmaOrdered By: Tuan Haas on 08-04-2024 Protein [Mass/Vol] Protein [Mass/volume ] in Serum or Plasma 6.4-8.9 [facility] RBC Auto (Bld) [#/Vol]Ordere d By: Tuan Haas on 08-04-2024 RBC (Bld) [#/Vol] Erythrocytes [#/volume] in Blood by Automated count 3.60-5.00 [facility] Serum heterophile antibody d etection by latex agglutinationOrdered By: Tuan Haas on 08-04-2024 Heterophile Ab LA Ql (S) Serum heterophile antibody detection by latex agglutination Negative [facility] Serum or plasma albumin/glob ulin mass ratioOrdered By: Tuan Haas on 08-04-2024 Albumin/Globulin [Mass ratio] Serum or plasma albumin/globulin mass ratio [facility] Serum or plasma anion gap de terminationOrdered By: Tuan Haas on 08-04-2024 Anion gap [Moles/Vol] Serum or plasma an ion gap determination 6.0-15.0 [facility] Sodium [Moles/volume] in Ser um or PlasmaOrdered By: Tuan Haas on 08-04-2024 Sodium [Moles/Vol] Sodium [Moles/volume ] in Serum or Plasma 136-145 [facility] Urea nitrogen [Mass/volume] in Serum or PlasmaOrdered By: Tuan Haas on 08-04-2024 Urea nitrogen [Mass/Vol] Urea nitrogen [Mass/volume] in Serum or Plasma 7-25 [facility] WBC Auto (Bld) [#/Vol]Ordere d By: Tuan Haas on 08-04-2024 WBC (Bld) [#/Vol] Leukocytes [#/volume ] in Blood by Automated count 3.8-11.6 [facility] Delivery Summaryon Delivery Summary Delivery Summary DATE OF DELIVERY: 07/12/2024 The patient is a 24-year-old 7, para 4, AB 2 white female who presented to Labor and Delivery with advanced dilatation, previous history of section x2, previous vaginal after x2, with advanced dilatation of 6 cm. Artificial rupture of membranes was accomplished. She required pitocin augmentation which allowed her to complete the active phase of labor. She reached complete and complete and pushed through the second stage of labor spontaneously delivering an 8-pound 14-ounce female infant with Apgars of 9 and 9. A true knot was noted in the cord. The vaginal exam revealed an intact periuterine scar. Arterial cord pH was obtained. The placenta delivered spontaneously intact. The uterus contracted down well, no repair was necessary, and both mom and infant were doing well in the Room. You Wilkerson M.D. ca Dictated: 07/14/2024 [id number] Transcribed: 07/14/2024 [facility] Comment on above: Result Comment: Elec tronically Signed By: Rhea LAZARO, You Greco\.br\Date and Time Signed: 07/16/24 08:54 EST General Message Officeon SourceClear Office ExpenseBot Message Office --- --- --- --- --- --- --- --- --- From: [facility], [employer]box To: KASSIE CRAWFORD Sent: 07/15/24 02:30:48 AM EST Subject: Discharge Summary Ready to View A summary regarding your recent visit is available in the Documents section of your health record. Normal [facility] Surgical Pathology Reporton 07-15-2024 Surgical Pathology Report [facility] [address] [place] [address]- Surgical Pathology Report Collected Date/Time: 07/12/2024 13:52 EST Pathologist: Nicholas LAZARO PhD, Kiran Hogan Date/Time: 07/13/2024 07:37 EST Rhea LAZARO, You Wilkerson MD, You Hairston Surgical Pathology Report - 07/15/2024 12:40 EST - Auth (Verified) Final Diagnosis PLACENTA, VAGINAL DELIVERY: - THIRD TRIMESTER BURNS PLACENTA WITH WEIGHT 546 GRAMS. - MEMBRANES WITH NO SIGNIFICANT PATHOLOGIC CHANGES. - TRIVASCULAR CORD WITH A TRUE KNOT IDENTIFIED. - MATURE CHORIONIC VILLI COMPATIBLE WITH GESTATIONAL AGE. (Electronic Signature) Kiran Peterson MD PhD 07/15/2024 12:40 Clinical Information Pre-Op Diagnosis: Labor and Delivery Procedure: Vaginal Delivery Post-Op Diagnosis: Labor and Delivery Gestational Age (Weeks): 38 Gestational Age (Days): 4 Specimen(s) Received Placenta Gross Description Received fresh labeled with patient name, number, and placenta is a slightly torn but intact placenta with attached membranes and umbilical cord. Membranes are marginally inserted and the point of rupture is approximately 3 cm from the margin. The membranes are pink and opaque. The umbilical cord is centrically inserted 7 cm from the nearest free edge. Approximately 20 cm from the insertion and 39 cm from the placental insertion is a true knot. Umbilical cord is 73 cm long and up to 1.5 cm in diameter. The cord cross-section contains three blood vessels and is slightly edematous. The placenta disc is round measuring 20 x 19 x 2.5 cm and weighs 546 g without membranes and umbilical cord. Cross-sectioning through the placenta disc contains light red and red spongy granular tissue, and no discrete lesions are grossly identified. [employer] Official portion is submitted in three cassettes: 1 - Cord and membrane 2-3 - Placenta parenchyma (DC) DC:[facility] Microscopic Description Microscopic examination performed unless gross only specified. Normal [facility] Comment on above: Performed By: #### [id number] #### [facility] [address] [place] [id number] Inpatient Clinical Summaryon 07-14-2024 Inpatient Clinical Summary Inpatient Clinical Summary [address] [address] Clinical Summary Person Information Name: KASSIE CRAWFORD [facility] Age: 24 Years : 2000 Sex: Female PCP: TUAN HAAS DO Marital Status: Single Phone: [phone] Race: White Ethnicity: Non- or Language: Belizean Visit Id: Visit Reason: Speciality: Acuity: 2 PP Enc Type: Inpatient Med Service: Obstetrics Arrival: 07/12/2024 06:28:54 Discharge: 07/14/2024 12:50:00 Dispo Type: Home (Routine DC) Address: [address] [place] [id number] Provider Notes: Diagnosis: H/O section complicating ; History of ; LGA (large for gestational age) infant; , delivered Problems Active History of Smoking Status: Never Smoker Functional Status: Sensory Deficits: History of Falls: Mobility Assistance Prior to Admission: Independent ADLs: Independent Current Level of Assistance for Self-Care/Mobility: Cognitive Status: Allergies No Known Allergies Laboratory or Other Results This Visit (last charted value for your 07/12/2024 visit) Hematology 07/13/2024 5:50 AM Hypochromasia: PRESENT RBC Morph: NORMAL Polychromasia: PRESENT Microcyte: PRESENT Hct: 25.9 % -- Normal range between ( 34.0 and 46.0 ) HGB: 8.4 gm/dL -- Normal range between ( 12.0 and 16.0 ) RBC: 3.6 E12/L -- Normal range between ( 4.3 and 5.9 ) RDW: 16.0 % -- Normal range between ( 10.9 and 14.2 ) MCH: 23.5 pg -- Normal range between ( 27.0 and 34.0 ) MCHC: 32.5 gm/dL -- Normal range between ( 31.4 and 36.0 ) MCV: 72.5 fL -- Normal range between ( 80.0 and 100.0 ) MPV: 8.7 fL -- Normal range between ( 6.4 and 10.8 ) Platelet: 212.0 E9/L -- Normal range between ( 150.0 and 500.0 ) WBC: 9.7 E9/L -- Normal range between ( 4.0 and 11.0 ) Urinalysis 07/12/2024 10:11 AM UA Bili: Negative mg/dL UA Color: Yellow UA Glucose: Negative mg/dL UA Ketones: Trace mg/dL UA Leuk Est: Negative Pearl/uL UA Nitrite: Negative mg/dL UA Protein: Negative mg/dL UA Urobilinogen: Negative mg/dL UA Spec Desc: Garcia UA Blood: Negative mg/dL UA Clarity: Clear UA pH: 6.5 -- Normal range between ( 5.0 and 9.0 ) UA Spec Grav: 1.030 -- Normal range between ( 1.005 and 1.030 ) Chemistry 07/12/2024 7:01 AM U Benzodia Scr: NEGATIVE U Cocaine Scr: NEGATIVE U Opiate Scr: NEGATIVE U PCP Scr: NEGATIVE U Cannab Scr: NEGATIVE U Amph Scr: NEGATIVE U Samantha Scr: NEGATIVE U Suboxone Scr: NEGATIVE U Fentanyl: NEGATIVE Blood Bank 07/12/2024 7:12 AM ABO/Rh: O POS ABSC Gel Interp: Negative Measurements: Height: 170.1 cm Weight: 139.25 kg Blood Pressure: 126 mmHg / 83 mmHg BMI: Procedures No Procedures Documented Immunizations No Immunizations Documented This Visit Final Med List: ibuprofen (ibuprofen 600 mg Tab) 1 Tablets By Mouth every 6 hours. Refills: 0. multivitamin, ( Multivitamins) 1 Tablets By Mouth every day. omeprazole (omeprazole 20 mg Cap-DR) Care Team Members: Attending Physician: You Wilkerson MD Consulting Physician: Referring Physician: Follow up: With: Address: When: Dr. Wilkerson [phone] Within 6 weeks Comments: Call for any problems. Call Dr if fever>100.5 F, heavy bleeding Call today to schedule your follow up Support Group first Friday of the Nothing in the vagina for 6 weeks Patient Education Information: Normal [facility] Inpatient Patient Summaryon 07-14-2024 Inpatient Patient Summary Inpatient Patient Summary [place] [address] Patient Discharge Instructions PERSON INFORMATION Name: KASSIE CRAWFORD Date of : 2000 Current Date: 07/14/2024 13:12:25 PHYSICIANS Admitting Physician: You Wilkerson MD Primary Care Physician: TUAN HAAS DO PCP Comment: Discharge Diagnosis: H/O section complicating ; History of ; LGA (large for gestational age) ; , delivered Condition at Discharge: Stable KASSIE CRAWFODR has been given the following list of follow-up instructions, prescriptions, and patient education materials: PATIENT FOLLOW-UP INFORMATION Diet: Regular Activity: Expect mild pain, Expect minimal amount of drainage and/or bleeding, Activity as tolerated Wound Care Instructions: Remove Your Dressing IN: Days Call Your Doctor For: Persistent or heavy bleeding, Temperature above 101.5 degrees, Persistent vomiting IF UNABLE TO CONTACT YOUR PHYSICIAN AND YOU FEEL IT IS AN EMERGENCY, GO TO THE NEAREST EMERGENCY ROOM OR CALL 441 Home Treatment: Devices/Equipment: Special Services: Additional Instructions: Physician to provide the following pending test results: None Follow up: With: Address: When: Dr. Wilkerson [phone] Within 6 weeks Comments: Call for any problems. Call Dr if fever>100.5 F, heavy bleeding Call today to schedule your follow up Support Group first Friday of the month Nothing in the vagina for 6 weeks In the event that this physician does not participate in your insurance network, please consult with your insurance company to find a nearby participating provider. Comment: YVETTE Wan ABAGAIL M, have received the attached patient education materials/instruction s and have verbalized understanding. Patient Signature Date Clinican/Nurse Signature Date MEDICATION LIST New Medications [id number], [address], [place] [id number], [phone] ibuprofen (ibuprofen 600 mg Tab) 1 Tablets By Mouth every 6 hours. Refills: 0. Last Dose: ____Next Dose: ____ Medications to Continue with No Changes Other Medications multivitamin, ( Multivitamins) 1 Tablets By Mouth every day. Last Dose: ____Next Dose: ____ omeprazole (omeprazole 20 mg Jaren-) Last Dose: ____Next Dose: ____ Pharmacy Information: [facility] PATIENT EDUCATION INFORMATION Instructions: Medication Leaflets: You may receive a survey from [employer] asking you to rate your care experience. Your feedback is important and will help us understand what we do well and how we can improve the quality of care we provide to you, your loved ones and our community. It???s an honor to serve you. Patient Portal You may access all of your results and other medical record information on our secure patient portal. If you are not signed up for this yet, please contact [employer] at [phone] to get signed up today. LUCY Award Nomination The LUCY (Diseases Attacking the Immune SYstem) Award is an international recognition program that honors and celebrates the skillful, compassionate care nurses provide every day. Anyone who experiences or observes amazing care being provided by a nurse is encouraged to submit a nomination. To nominate your nurse, use your smart phone to scan the QR code below. Thank you for choosing [facility] Normal [facility] CBC w/Indiceson 07-13-2024 Erythrocyte distribution width (RBC) [Ratio] 16.0 % High 10.9-14.2 [facility] Comment on above: Performed By: #### 2 [id number] #### [facility] [address] [place] [address] Hematocrit (Bld) [Volume fraction] 25.9 % Low 34.0-46.0 [facility] Comment on above: Performed By: #### 2 [id number] #### [facility] [address] [place] [address] Hemoglobin (Bld) [Mass/Vol] 8.4 g/dL Low 12.0-16.0 [facility] Comment on above: Performed By: #### 2 [id number] #### [facility] [address] [place] [address] Hypochromia Auto Ql (Bld) PRESENT Invalid Interpretation Code [facility] Comment on above: Performed By: #### 2 [id number] #### [facility] [address] [place] [address] MCH (RBC) [Entitic mass] 23.5 pg Low 27.0-34.0 [facility] Comment on above: Performed By: #### 2 [id number] #### [facility] [address] [place] [address] MCHC (RBC) [Mass/Vol] 32.5 g/dL Normal 31.4-36.0 [facility] Comment on above: Performed By: #### 2 [id number] #### [facility] [address] [place] [address] MCV (RBC) [Entitic vol] 72.5 fL Low 80.0-100.0 [facility] Comment on above: Performed By: #### 2 [id number] #### [facility] [address] [place] [address] Microcytes Ql (Bld) PRESENT Invalid Interpretation Code [facility] Comment on above: Performed By: #### 2 [id number] #### [facility] [address] [place] [address] Platelet 212.0 E9/L Normal 150.0-500.0 [facility] Comment on above: Performed By: #### 2 [id number] #### [facility] [address] [place] [address] Platelet mean volume (Bld) [Entitic vol] 8.7 fL Normal 6.4-10.8 [facility] Comment on above: Performed By: #### 2 [id number] #### [facility] [address] [place] [id number] Polychromasia LM Ql (Bld) PRESENT Invalid Interpretation Code [facility] Comment on above: Performed By: #### 2 [id number] #### [facility] [address] [place] [address] RBC (Bld) [#/Vol] 3.6 E12/L Low 4.3-5.9 [facility] Comment on above: Performed By: #### 2 [id number] #### [facility] [address] [place] [id number] RBC size Nom (Bld) NORMAL Invalid Interpretation Code [facility] Comment on above: Performed By: #### 2 [id number] #### [facility] [address] [place] [address] WBC corrected for nucl RBC Auto (Bld) [#/Vol] 9.7 E9/L Normal 4.0-11.0 [facility] Comment on above: Performed By: #### 2 [id number] #### [facility] [address] [place] [address] HEMATOLOGYOrdered By: SYSTEM SYSTEM on 07-13-2024 Erythrocyte distribution width (RBC) [Ratio] 16.0 % High 10.9 - 14.2 % [facility]e Hematocrit (Bld) [Volume fraction] 25.9 % Low 34.0 - 46.0 % [facility] Heme Hemoglobin (Bld) [Mass/Vol] 8.4 g/dL Low 12.0 - 16.0 gm/dL [facility] Hypochromia Auto Ql (Bld) PRESENT *NA* (07/13/24 5:50 AM) Invalid Interpretation Code [facility] MCH (RBC) [Entitic mass] 23.5 pg Low 27.0 - 34.0 pg Rem[facility] Heme MCHC (RBC) [Mass/Vol] 32.5 g/dL Normal 31.4 - 36.0 gm/dL [facility] MCV (RBC) [Entitic vol] 72.5 fL Low 80.0 - 100.0 fL [facility] Microcytes Ql (Bld) PRESENT *NA* (07/13/24 5:50 AM) Invalid Interpretation Code [facility] Platelet 212.0 E9/L Normal 150.0 - 500.0 E9/L [facility] Platelet mean volume (Bld) [Entitic vol] 8.7 fL Normal 6.4 - 10.8 fL [facility] Polychromasia LM Ql (Bld) PRESENT *NA* (07/13/24 5:50 AM) Invalid Interpretation Code [facility] RBC (Bld) [#/Vol] 3.6 E12/L Low 4.3 - 5.9 E12/L [facility] RBC size Nom (Bld) NORMAL *NA* (07/13/24 5:50 AM) Invalid Interpretation Code [facility] WBC corrected for nucl RBC Auto (Bld) [#/Vol] 9.7 E9/L Normal 4.0 - 11.0 E9/L [facility] ABO/Rhon 07-12-2024 ABO/Rh Positive Invalid Interpretation Code [facility] Comment on above: Performed By: #### 2 [id number] #### [facility] [address] [place] [address] ABO/Rh History Checkon 07-12 ABO/Rh History Check Verified Hx Blood Type Normal [facility] Comment on above: Performed By: #### 1 [id number] #### [facility] [address] [place] [address] ABSCon 07-12-2024 ABSC Gel Interp Negative Normal [facility] Comment on above: Performed By: #### 1 [id number] ####[facility] [address] [place] [address] BLOOD BANKOrdered By: Michelle Fuentes on 07-12-2024 ABO/Rh Interp Positive Invalid Interpretation Code [facility] BB Subsection ABSC Gel Interp Negative (07/12/24 7:12 AM) Normal [facility] BB Subsection Blood Bank ID#on 07-12-2024 BBID# [id number] Invalid Interpretation Code [facility] Comment on above: Performed By: #### 1 [id number] #### [facility] [address] [place] [address] Buprenorphine Scr Uron 07-12 Buprenorphine Ql (U) Negative Normal NEGATIVE [facility] Comment on above: Result Comment: Nega tive Cutoff: <5 ng/mL These drug screen results are to be used for medical (i.e., treatment) purposes only. Unconfirmed drug screening results must not be used for non-medical purposes (e.g., employment testing, legal testing). Performed By: #### 7 [id number] #### [facility] [address] [place] [address] CBC w/Indiceson 07-12-2024 Erythrocyte distribution width (RBC) [Ratio] 16.0 % High 10.9-14.2 [facility] Comment on above: Performed By: #### 2 [id number] #### [facility] [address] [place] [address] Hematocrit (Bld) [Volume fraction] 29.3 % Low 34.0-46.0 [facility] Comment on above: Performed By: #### 2 [id number] #### [facility] [address] [place] [address] Hemoglobin (Bld) [Mass/Vol] 9.7 g/dL Low 12.0-16.0 [facility] Comment on above: Performed By: #### 2 [id number] #### [facility] [address] [place] [address] MCH (RBC) [Entitic mass] 23.8 pg Low 27.0-34.0 [facility] Comment on above: Performed By: #### 2 [id number] #### [facility] [address] [place] [address] MCHC (RBC) [Mass/Vol] 33.1 g/dL Normal 31.4-36.0 [facility] Comment on above: Performed By: #### 2 [id number] #### [facility] [address] [place] [address] MCV (RBC) [Entitic vol] 72.1 fL Low 80.0-100.0 [facility] Comment on above: Performed By: #### 2 [id number] #### [facility] [address] [place] [address] Platelet mean volume (Bld) [Entitic vol] 8.9 fL Normal 6.4-10.8 [facility] Comment on above: Performed By: #### 2 [id number] #### [facility] [address] [place] [address] Platelets (Bld) [#/Vol] 235.0 E9/L Normal 150.0-500.0 [facility] Comment on above: Performed By: #### 2 [id number] #### [facility] [address] [place] [address] RBC (Bld) [#/Vol] 4.1 E12/L Low 4.3-5.9 [facility] Comment on above: Performed By: #### 2 [id number] #### [facility] [address] [place] [address] RBC size Nom (Bld) NORMAL Invalid Interpretation Code [facility] Comment on above: Performed By: #### 2 [id number] #### [facility] [address] [place] [address] WBC corrected for nucl RBC Auto (Bld) [#/Vol] 8.5 E9/L Normal 4.0-11.0 [facility] Comment on above: Performed By: #### 2 [id number] #### [facility] [address] [place] [address] CHEMISTRYOrdered By: SYSTEM SYSTEM on 07-12-2024 Amphetamines Screen method >1000 ng/mL Ql (U) NEGATIVE 7 (07/12/24 7:01 AM) Normal NEGATIVE [facility] Comment on above: Interpretive Data: N egative Cutoff: <1000 ng/mL Barbiturates Screen Ql (U) NEGATIVE 8 (07/12/24 7:01 AM) Normal NEGATIVE [facility] Comment on above: Interpretive Data: N egative Cutoff: <200 ng/mL Benzodiazepines Ql (U) NEGATIVE 1 (07/12/24 7:01 AM) Normal NEGATIVE [facility] Comment on above: Interpretive Data: N egative Cutoff: <200 ng/mL Buprenorphine Ql (U) NEGATIVE 10 (07/12/24 7:01 AM) Normal NEGATIVE [facility] Comment on above: Interpretive Data: N egative Cutoff: <5 ng/mL These drug screen results are to be used for medical (i.e., treatment) purposes only. Unconfirmed drug screening results must not be used for non-medical purposes (e.g., employment testing, legal testing). Cannabinoids Screen Ql (U) NEGATIVE 6 (07/12/24 7:01 AM) Normal NEGATIVE [facility] Comment on above: Interpretive Data: N egative Cutoff: <50 ng/mL Cocaine Ql (U) NEGATIVE 2 (07/12/24 7:01 AM) Normal NEGATIVE [facility] Comment on above: Interpretive Data: N egative Cutoff: <300 ng/mL Opiates Screen Ql (U) NEGATIVE 4 (07/12/24 7:01 AM) Normal NEGATIVE [facility] Comment on above: Interpretive Data: N egative Cutoff: <300 ng/mL Phencyclidine Screen method >25 ng/mL Ql (U) NEGATIVE 5 (07/12/24 7:01 AM) Normal NEGATIVE [facility] Comment on above: Interpretive Data: N egative Cutoff: <25 ng/mL These drug screen results are to be used for medical (i.e., treatment) purposes only. Unconfirmed drug screening results must not be used for non-medical purposes (e.g., employment testing, legal testing). U Fentanyl NEGATIVE 9 (07/12/24 7:01 AM) Normal NEGATIVE [facility] Comment on above: Interpretive Data: N egative Cutoff: <5 ng/mL These drug screen results are to be used for medical (i.e., treatment) purposes only. Unconfirmed drug screening results must not be used for non-medical purposes (e.g., employment testing, legal testing). Extra Blueon 07-12-2024 Tube Collected Plasma Yes Invalid Interpretation Code [facility] Comment on above: Performed By: #### 1 [id number] #### [facility] [address] [place] [address] HEMATOLOGYOrdered By: SYSTEM SYSTEM on 07-12-2024 Erythrocyte distribution width (RBC) [Ratio] 16.0 % High 10.9 - 14.2 % [facility] Hematocrit (Bld) [Volume fraction] 29.3 % Low 34.0 - 46.0 % [facility] Hemoglobin (Bld) [Mass/Vol] 9.7 g/dL Low 12.0 - 16.0 gm/dL [facility] MCH (RBC) [Entitic mass] 23.8 pg Low 27.0 - 34.0 pg [facility] MCHC (RBC) [Mass/Vol] 33.1 g/dL Normal 31.4 - 36.0 gm/dL [facility] MCV (RBC) [Entitic vol] 72.1 fL Low 80.0 - 100.0 fL [facility] Platelet mean volume (Bld) [Entitic vol] 8.9 fL Normal 6.4 - 10.8 fL [facility] Platelets (Bld) [#/Vol] 235.0 E9/L Normal 150. 0 - 500.0 E9/L [facility] RBC (Bld) [#/Vol] 4.1 E12/L Low 4.3 - 5.9 E12/L [facility] RBC size Nom (Bld) NORMAL *NA* (07/12/24 7:12 AM) Invalid Interpretation Code [facility] WBC corrected for nucl RBC Auto (Bld) [#/Vol] 8.5 E9/L Normal 4.0 - 11.0 E9/L [facility] U Drug Screenon 07-12-2024 Amphetamines Screen method >1000 ng/mL Ql (U) Negative Normal NEGATIVE [facility] Comment on above: Result Comment: Nega tive Cutoff: <1000 ng/mL Performed By: #### 2 [id number] #### [facility] [address] [place] [address] Barbiturates Screen Ql (U) Negative Normal NEGATIVE [facility] Comment on above: Result Comment: Nega tive Cutoff: <200 ng/mL Performed By: #### 2 [id number] #### [facility] [address] [place] [address] Benzodiazepines Ql (U) Negative Normal NEGATIVE [facility] Comment on above: Result Comment: Nega tive Cutoff: <200 ng/mL Performed By: #### 2 [id number] #### [facility] [address] [place] [address] Cannabinoids Screen Ql (U) Negative Normal NEGATIVE [facility] Comment on above: Result Comment: Nega tive Cutoff: <50 ng/mL Performed By: #### 2 [id number] #### [facility] [address] [place] [address] Cocaine Ql (U) Negative Normal NEGATIVE [facility] Comment on above: Result Comment: Nega tive Cutoff: <300 ng/mL Performed By: #### 2 [id number] #### [facility] [address] [place] [address] Opiates Screen Ql (U) Negative Normal NEGATIVE [facility] Comment on above: Result Comment: Nega tive Cutoff: <300 ng/mL Performed By: #### 2 [id number] #### [facility] [address] [place] [address] Phencyclidine Screen method >25 ng/mL Ql (U) Negative Normal NEGATIVE [facility] Comment on above: Result Comment: Nega tive Cutoff: <25 ng/mL These drug screen results are to be used for medical (i.e., treatment) purposes only. Unconfirmed drug screening results must not be used for non-medical purposes (e.g., employment testing, legal testing). Performed By: #### 2 [id number] #### [facility] [address] [place] [address] U Fentanyl Negative Normal NEGATIVE [facility] Comment on above: Result Comment: Nega tive Cutoff: <5 ng/mL These drug screen results are to be used for medical (i.e., treatment) purposes only. Unconfirmed drug screening results must not be used for non-medical purposes (e.g., employment testing, legal testing). Performed By: #### 2 [id number] #### [facility] [address] [place] [address] URINALYSISOrdered By: SYSTEM SYSTEM on 07-12-2024 Bilirubin Ql (U) Negative Normal Negativemg/ dL [facility] UA Auto SS Clarity (U) Clear (07/12/24 10:11 AM) Normal Clear [facility] UA Auto SS Color (U) Yellow 3 (07/12/24 10:11 AM) Normal Yellow [facility] UA Auto SS Comment on above: Interpretive Data: M icroscopic readings are only performed on those samples that meet specific criteria set forth by [facility]. Glucose Ql (U) Negative Normal Negativemg/ dL [facility] UA Auto SS Hemoglobin Auto test strip (U) [Mass/Vol] Negative Normal Negativemg/ dL [facility] UA Auto SS Ketones Auto test strip Ql (U) Trace mg/dL Invalid Interpretation Code Negativemg/ dL [facility] UA Auto SS Leukocyte esterase Auto test strip Ql (U) Negative Normal NegativeLeu /uL [facility] UA Auto SS Nitrite Auto test strip Ql (U) Negative Normal Negativemg/ dL [facility] UA Auto SS pH (U) 6.5 *NA* (07/12/24 10:11 AM) Invalid Interpretation Code 5.0 - 9.0 [facility] UA Auto SS Protein Ql (U) Negative Normal Negativemg/ dL [facility] UA Auto SS Specific gravity (U) [Rel density] 1.030 *NA* (07/12/24 10:11 AM) Invalid Interpretation Code 1.005 - 1.030 [facility] UA Auto SS Urobilinogen (U) [Mass/Vol] Negative Normal Negativemg/ dL [facility] UA Auto SS URINALYSISOrdered By: Starr clemente on 07-12-2024 UA Spec Desc Garcia (07/12/24 10:11 AM) Normal [facility] UA Auto SS C Urineon 07-09-2024 Bacteria identified Cx Nom (U) Microbiology PROCEDURE: Urine Culture [R1] SOURCE: U CleanCatch BODY SITE: COLLECTED DATE/TIME: 07/07/2024 12:42 EST RECEIVED DATE/TIME: 07/07/2024 13:03 EST START DATE/TIME: 07/07/2024 13:03 EST FREE TEXT SOURCE: Rhea LAZARO, You Wilkerson MD, You Greco FINAL REPORTS Final Report [] Verified Date/Time: 07/09/2024 10:54 EST <10,000 cfu/ml Mixed skin contaminants Performing Locations R1: This test was performed at: [facility], [address] [place] [address], [id number] [place] [address], [facility] Comment on above: Performed By: #### 2 [id number] #### [facility] [address] [place] [id number] Inpatient Clinical Summaryon 07-07-2024 Inpatient Clinical Summary Inpatient Clinical Summary [address] [address] Clinical Summary Person Information Name: KASSIE CRAWFORD [facility] Age: 24 Years : 2000 Sex: Female PCP: TUAN HAAS DO Marital Status: Single Phone: Race: White Ethnicity: Non- or Language: Belizean Visit Id: Visit Reason: Speciality: Acuity: Obs Enc Type: Outpatient in a Bed Med Service: Obstetrics Arrival: 07/07/2024 12:24:16 Discharge: 07/07/2024 14:11:07 Dispo Type: Home (Routine DC) Address: [address] [place] [id number] Provider Notes: Diagnosis: Problems Active (04/20/2024) History of Smoking Status: Never Smoker Functional Status: Sensory Deficits: History of Falls: Mobility Assistance Prior to Admission: ADLs: Current Level of Assistance for Self-Care/Mobility: Cognitive Status: Allergies No Known Allergies Laboratory or Other Results This Visit (last charted value for your 07/07/2024 visit) Urinalysis 07/07/2024 12:42 PM UA Bacteria: 2+ /HPF UA Bili: Negative mg/dL UA Color: Light-Yellow UA Glucose: Negative mg/dL UA Ketones: Negative mg/dL UA Leuk Est: 500 Pearl/uL Eparl/uL UA Mucous: Trace graded/LPF UA Nitrite: Negative mg/dL UA Protein: Negative mg/dL UA RBC: 0-3 graded/HPF UA Squam Epithelial: >10 graded/HPF UA Urobilinogen: Negative mg/dL UA WBC: 6-15 graded/HPF UA Spec Desc: Clean Catch UA Blood: Negative mg/dL UA Clarity: Turbid UA pH: 7.0 -- Normal range between ( 5.0 and 9.0 ) UA Spec Grav: 1.013 -- Normal range between ( 1.005 and 1.030 ) Measurements: Height: 170 cm Weight: 139 kg Blood Pressure: 126 mmHg / 80 mmHg BMI: 48.1 kg/m2 Procedures No Procedures Documented Immunizations No Immunizations Documented This Visit Final Med List: multivitamin, ( Multivitamins) 1 Tablets By Mouth every day. omeprazole (omeprazole 20 mg Jaren-) Care Team Members: Attending Physician: Rhea LAZARO, You Greco Consulting Physician: Referring Physician: Follow up: With: Address: When: Your Doctor at [facility] [phone] 07/12/2024 6:30 AM Comments: Call for any problems. CALL OB DEPT @ 0530 Friday TO ASSURE BED AVAILABILITY Patient Education Information: Normal [facility] Inpatient Patient Summaryon 07-07-2024 Inpatient Patient Summary Inpatient Patient Summary [place] [id number] Patient Discharge Instructions PERSON INFORMATION Name: YVETTEKASSIE MOONEY Date of : 2000 Current Date: 07/07/2024 14:11:16 PHYSICIANS Admitting Physician: Primary Care Physician: TUAN HAAS DO PCP Comment: Discharge Diagnosis: Condition at Discharge: Stable KASSIE CRAWFORD has been given the following list of follow-up instructions, prescriptions, and patient education materials: PATIENT FOLLOW-UP INFORMATION Diet: Regular Activity: Wound Care Instructions: Remove Your Dressing IN: Days Call Your Doctor For: IF UNABLE TO CONTACT YOUR PHYSICIAN AND YOU FEEL IT IS AN EMERGENCY, GO TO THE NEAREST EMERGENCY ROOM OR CALL 911 Home Treatment: Devices/Equipment: Special Services: Additional Instructions: Physician to provide the following pending test results: Urine culture Follow up: With: Address: When: Your Doctor at [facility] [phone] 07/12/2024 6:30 AM Comments: Call for any problems. CALL OB DEPT @ 0530 FRIDAY MORNING TO ASSURE BED AVAILABILITY In the event that this physician does not participate in your insurance network, please consult with your insurance company to find a nearby participating provider. Comment: IYVETTE ABAGAIL M, have received the attached patient education materials/instruction s and have verbalized understanding. Patient Signature Date Clinican/Nurse Signature Date MEDICATION LIST Medications to Continue with No Changes Other Medications multivitamin, ( Multivitamins) 1 Tablets By Mouth every day. Last Dose: ____Next Dose: ____ omeprazole (omeprazole 20 mg Cap-DR) Last Dose: ____Next Dose: ____ Pharmacy Information: [facility] PATIENT EDUCATION INFORMATION Instructions: Medication Leaflets: You may receive a survey from [employer] asking you to rate your care experience. Your feedback is important and will help us understand what we do well and how we can improve the quality of care we provide to you, your loved ones and our community. It???s an honor to serve you. Patient Portal You may access all of your results and other medical record information on our secure patient portal. If you are not signed up for this yet, please contact [employer] at [phone] to get signed up today. LUCY Award Nomination The LUCY (Diseases Attacking the Immune SYstem) Award is an international recognition program that honors and celebrates the skillful, compassionate care nurses provide every day. Anyone who experiences or observes amazing care being provided by a nurse is encouraged to submit a nomination. To nominate your nurse, use your smart phone to scan the QR code below. Thank you for choosing [facility] Normal [facility] UA with Cult Rflxon 07-07-20 24 Bacteria Auto Ql (U) 2+ /HPF Abnormal Trace [facility] Comment on above: Performed By: #### 4 [id number] #### [facility] [address] [place] [address] Bilirubin Ql (U) Negative Normal Negative [facility] Comment on above: Performed By: #### 4 [id number] #### [facility] [address] [place] [address] Clarity (U) Turbid Abnormal Clear [facility] Comment on above: Performed By: #### 4 [id number] #### [facility] [address] [place] [address] Color (U) Light-Yellow Normal Yellow [facility] Comment on above: Result Comment: Micr oscopic readings are only performed on those samples that meet specific criteria set forth by [facility]. Performed By: #### 4 [id number] #### [facility] [address] [place] [address] Epithelial cells.squamous Auto (Urine sed) [#/Area] >10 Invalid Interpretation Code [facility] Comment on above: Performed By: #### 4 [id number] #### [facility] [address] [place] [address] Glucose Ql (U) Negative Normal Negative [facility] Comment on above: Performed By: #### 4 [id number] #### [facility] [address] [place] [address] Hemoglobin Auto test strip (U) [Mass/Vol] Negative Normal Negative [facility] Comment on above: Performed By: #### 4 [id number] #### [facility] [address] [place] [address] Ketones Auto test strip Ql (U) Negative Normal Negative [facility] Comment on above: Performed By: #### 4 [id number] #### [facility] [address] [place] [address] Leukocyte esterase Auto test strip Ql (U) 500 Pearl/uL Abnormal Negative [facility] Comment on above: Performed By: #### 4 [id number] #### [facility] [address] [place] [address] Mucus Auto Ql (U) Trace Normal Negative [facility] Comment on above: Performed By: #### 4 [id number] #### [facility] [address] [place] [address] Nitrite Auto test strip Ql (U) Negative Normal Negative [facility] Comment on above: Performed By: #### 4 [id number] #### [facility] [address] [place] [address] pH (U) 7.0 [pH] Invalid Interpretation Code 5.0-9.0 [facility] Comment on above: Performed By: #### 4 [id number] #### [facility] [address] [place] [address] Protein Ql (U) Negative Normal Negative [facility] Comment on above: Performed By: #### 4 [id number] #### [facility] [address] [place] [address] RBC Ql (U) 0-3 Normal 0-3 [facility] Comment on above: Performed By: #### 4 [id number] #### [facility] [address] [place] [address] Specific gravity (U) [Rel density] 1.013 Invalid Interpretation Code 1.005-1.030 [facility] Comment on above: Performed By: #### 4 [id number] #### [facility] [address] [place] [address] Urobilinogen (U) [Mass/Vol] Negative Normal Negative [facility] Comment on above: Performed By: #### 4 [id number] #### [facility] [address] [place] [address] WBC Auto (Urine sed) [#/Area] 6-15 Abnormal 0-5 [facility] Comment on above: Performed By: #### 4 [id number] #### [facility] [address] [place] [address] Type of Urine collection method Clean Catch Normal [facility] Comment on above: Performed By: #### 4 [id number] #### [facility] [address] [place] [address] URINALYSISOrdered By: SYSTEM SYSTEM on 07-07-2024 Bacteria Auto Ql (U) 2+ /HPF Invalid Interpretation Code Trace/HPF [facility] UA Auto SS Bilirubin Ql (U) Negative Normal Negativemg/ dL [facility] UA Auto SS Clarity (U) Turbid *ABN* (07/07/24 12:42 PM) Invalid Interpretation Code Clear [facility] UA Auto SS Color (U) Light-Yellow 1 (07/07/24 12:42 PM) Normal Yellow [facility] UA Auto SS Comment on above: Interpretive Data: M icroscopic readings are only performed on those samples that meet specific criteria set forth by [facility]. Epithelial cells.squamous Auto (Urine sed) [#/Area] >10 graded/HPF Invalid Interpretation Code [facility] UA Auto SS Glucose Ql (U) Negative Normal Negativemg/ dL [facility] Auto SS Hemoglobin Auto test strip (U) [Mass/Vol] Negative Normal Negativemg/ dL [facility] Auto SS Ketones Auto test strip Ql (U) Negative Normal Negativemg/ dL [facility] UA Auto SS Leukocyte esterase Auto test strip Ql (U) 500 Pearl/uL Pearl/uL Invalid Interpretation Code NegativeLeu /uL [facility] UA Auto SS Mucus Auto Ql (U) Trace graded/LPF Normal Negati vegra ded/LPF [facility] UA Auto SS Nitrite Auto test strip Ql (U) Negative Normal Negativemg/ dL [facility] UA Auto SS pH (U) 7.0 *NA* (07/07/24 12:42 PM) Invalid Interpretation Code 5.0 - 9.0 [facility] UA Auto SS Protein Ql (U) Negative Normal Negativemg/ dL [facility] UA Auto SS RBC Ql (U) 0-3 graded/HPF Normal 0-3graded/H PF [facility] UA Auto SS Specific gravity (U) [Rel density] 1.013 *NA* (07/07/24 12:42 PM) Invalid Interpretation Code 1.005 - 1.030 [facility] UA Auto SS Urobilinogen (U) [Mass/Vol] Negative Normal Negativemg/ dL [facility] UA Auto SS WBC Auto (Urine sed) [#/Area] 6-15 graded/HPF Invalid Interpretation Code 0-5graded/H PF [facility] UA Auto SS URINALYSISOrdered By: Azeem Krueger on 07-07-2024 UA Spec Desc Clean Catch (07/07/24 12:42 PM) Normal [facility] UA Auto SS Group B Strep by PCRon 07-01 Group B Strep colonization by PCR Positive Abnormal Negative [facility] Comment on above: Performed By: #### 4 [id number] #### [facility] [address] [place] [address] CHEMISTRYOrdered By: SYSTEM SYSTEM on 05-01-2024 Glucose [Mass/Vol] 126 mg/dL Normal 55 - 140 mg/dL [facility] Chem Glucose [Mass/Vol] 137 mg/dL Normal 55 - 155 mg/dL [facility] Chem Glucose [Mass/Vol] 160 mg/dL Normal 55 - 180 mg/dL [facility] Chem Glucose [Mass/Vol] 90 mg/dL Normal 55 - 99 mg/dL Rem[facility] Chem CHEMISTRYOrdered By: Lab ROP User on 05-01-2024 Glucose [Mass/Vol] 88 mg/dL Normal 55 - 99 mg/dL [facility] POC Subsection POC Device SN [id number] 1 Invalid Interpretation Code [facility] POC Subsection POC User ID [id number] 1 Invalid Interpretation Code [facility] POC Subsection POC Username SLOANE NULL Invalid Interpretation Code [facility] POC Subsection Capillary Glucose POCon 04-03 Glucose [Mass/Vol] 88 mg/dL Normal 55-99 [facility] Comment on above: Performed By: #### 2 [id number] #### [facility] [address] [place] [address] Glu 1 Hron 05-01-2024 Glucose [Mass/Vol] 160 mg/dL Normal 55-180 [facility] Comment on above: Performed By: #### 2 [id number] #### [facility] [address] [place] [address] Glu 2 Hron 05-01-2024 Glucose [Mass/Vol] 137 mg/dL Normal 55-155 [facility] Comment on above: Performed By: #### 2 [id number] #### [facility] [address] [place] [address] Glu 3 Hron 05-01-2024 Glucose [Mass/Vol] 126 mg/dL Normal 55-140 [facility] Comment on above: Performed By: #### 2 [id number] #### [facility] [address] [place] [address] Glu Fastingon 05-01-2024 Glucose [Mass/Vol] 90 mg/dL Normal 55-99 [facility] Comment on above: Performed By: #### 2 [id number] #### [facility] [address] [place] [address] C Urineon 04-19-2024 Bacteria identified Cx Nom (U) Microbiology PROCEDURE: Urine Culture [R1] SOURCE: U CleanCatch BODY SITE: COLLECTED DATE/TIME: 04/17/2024 10:32 EDT RECEIVED DATE/TIME: 04/17/2024 13:57 EDT START DATE/TIME: 04/17/2024 13:57 EDT FREE TEXT SOURCE: Rhea LAZARO, You Wilkerson MD, You Greco FINAL REPORTS Final Report [] Verified Date/Time: 04/19/2024 09:06 EDT 25,000 cfu/ml Mixed skin contaminants Performing Locations R1: This test was performed at: [facility], [address] [place] [address], [address] , [place], Normal [facility] Comment on above: Performed By: #### 2 [id number] #### [facility] [address] [place] [address] Hep Bs Agon 04-18-2024 HBV surface Ag IA Ql Negative Invalid Interpretation Code Negative [facility] Comment on above: Result Comment: Perf ormed at: [address] [phone] [id number] PhD Jyoti Hurst Performed By: #### 2 [id number] #### [facility] [address] [place] [address] RPR with Conf Rfxon 04-18-20 24 Reagin Ab RPR Ql (S) Non-Reactive Invalid Interpretation Code Non Reactive [facility] Comment on above: Result Comment: Perf ormed at: [address] [id number] PhD Jyoti Hurst Performed By: #### 1 [id number] #### [facility] [address] [place] [address] Rubella IgGon 04-18-2024 Rubella virus IgG Qn (S) 6.21 [IU]/mL Invalid Interpretation Code Immune >0.99 [facility] Comment on above: Result Comment: Non- immune <0.90 Equivocal 0.90 - 0.99 Immune >0.99 Performed at: [address] [id number] PhD Jyoti Hurst Performed By: #### 1 [id number] #### [facility] [address] [place] [address] ABO/Rhon 04-17-2024 ABO/Rh Positive Invalid Interpretation Code [facility] Comment on above: Performed By: #### 2 [id number] #### [facility] [address] [place] [address] ABSCon 04-17-2024 ABSC Gel Interp Negative Normal [facility] Comment on above: Performed By: #### 1 [id number] #### [facility] [address] [place] [address] BLOOD BANKOrdered By: Emiliano Luke on 04-17-2024 ABO/Rh Interp Positive Invalid Interpretation Code [facility] BB Subsection ABSC Gel Interp Negative (04/17/24 11:38 AM) Normal [facility] BB Subsection CBC w/Indiceson 04-17-2024 Erythrocyte distribution width (RBC) [Ratio] 14.0 % Normal 10.9-14.2 [facility] Comment on above: Performed By: #### 2 [id number] #### [facility] [address] [place] [address] Hematocrit (Bld) [Volume fraction] 30.7 % Low 34.0-46.0 [facility] Comment on above: Performed By: #### 2 [id number] #### [facility] [address] [place] [address] Hemoglobin (Bld) [Mass/Vol] 10.3 g/dL Low 12.0-16.0 [facility] Comment on above: Performed By: #### 2 [id number] #### [facility] [address] [place] [address] MCH (RBC) [Entitic mass] 26.4 pg Low 27.0-34.0 [facility] Comment on above: Performed By: #### 2 [id number] #### [facility] [address] [place] [address] MCHC (RBC) [Mass/Vol] 33.6 g/dL Normal 31.4-36.0 [facility] Comment on above: Performed By: #### 2 [id number] #### [facility] [address] [place] [address] MCV (RBC) [Entitic vol] 78.7 fL Low 80.0-100.0 [facility] Comment on above: Performed By: #### 2 [id number] #### [facility] [address] [place] [address] Platelet 250.0 E9/L Normal 150.0-500.0 [facility] Comment on above: Performed By: #### 2 [id number] #### [facility] [address] [place] [address] Platelet mean volume (Bld) [Entitic vol] 8.3 fL Normal 6.4-10.8 [facility] Comment on above: Performed By: #### 2 [id number] #### [facility] [address] [place] [address] RBC (Bld) [#/Vol] 3.9 E12/L Low 4.3-5.9 [facility] Comment on above: Performed By: #### 2 [id number] #### [facility] [address] [place] [address] RBC size Nom (Bld) NORMAL Invalid Interpretation Code [facility] Comment on above: Performed By: #### 2 [id number] #### [facility] [address] [place] [address] WBC corrected for nucl RBC Auto (Bld) [#/Vol] 8.1 E9/L Normal 4.0-11.0 [facility] Comment on above: Performed By: #### 2 [id number] #### [facility] [address] [place] [address] CHEMISTRYOrdered By: SYSTEM SYSTEM on 04-17-2024 Glucose [Mass/Vol] 153 mg/dL High 55 - 140 mg/dL Remisol Chem Gest Scr Glu 1 Hron 04-17-20 24 Glucose [Mass/Vol] 153 mg/dL High 55-140 [facility] Comment on above: Performed By: #### 3 [id number] #### [facility] [address] [place] [address] HEMATOLOGYOrdered By: SYSTEM SYSTEM on 04-17-2024 Erythrocyte distribution width (RBC) [Ratio] 14.0 % Normal 10.9 - 14.2 % [facility] Heme Hematocrit (Bld) [Volume fraction] 30.7 % Low 34.0 - 46.0 % [facility] Hemoglobin (Bld) [Mass/Vol] 10.3 g/dL Low 12.0 - 16.0 gm/dL [facility] MCH (RBC) [Entitic mass] 26.4 pg Low 27.0 - 34.0 pg [facility] Heme MCHC (RBC) [Mass/Vol] 33.6 g/dL Normal 31.4 - 36.0 gm/dL [facility] MCV (RBC) [Entitic vol] 78.7 fL Low 80.0 - 100.0 fL [facility] Platelet 250.0 E9/L Normal 150.0 - 500.0 E9/L [facility] Platelet mean volume (Bld) [Entitic vol] 8.3 fL Normal 6.4 - 10.8 fL [facility] RBC (Bld) [#/Vol] 3.9 E12/L Low 4.3 - 5.9 E12/L [facility] RBC size Nom (Bld) NORMAL *NA* (04/17/24 11:38 AM) Invalid Interpretation Code [facility] WBC corrected for nucl RBC Auto (Bld) [#/Vol] 8.1 E9/L Normal 4.0 - 11.0 E9/L [facility] Hep Bs Agon 03-24-2024 HBV surface Ag IA Ql Negative Invalid Interpretation Code Negative [facility] Comment on above: Result Comment: Perf ormed at: [address] [id number] PhD Jyoti Hurst Performed By: #### 2 [id number] #### [facility] [address] [place] [address] RPR with Conf Rfxon 03-24-20 Reagin Ab RPR Ql (S) Non-Reactive Invalid Interpretation Code Non Reactive [facility] Comment on above: Result Comment: Perf ormed at: [address] [phone] PhD Jyoti Hurst Performed By: #### 1 [id number] #### [facility] [address] [place] [address] Rubella IgGon 03-24-2024 Rubella virus IgG Qn (S) 5.71 [IU]/mL Invalid Interpretation Code Immune >0.99 [facility] Comment on above: Result Comment: Non- immune <0.90 Equivocal 0.90 - 0.99 Immune >0.99 Performed at: [address] [id number] [phone] PhD Jyoti Hurst Performed By: #### 1 [id number] #### [facility] [address] [place] [address] ABO/Rhon 03-23-2024 ABO/Rh Positive Invalid Interpretation Code [facility] Comment on above: Performed By: #### 2 [id number] #### [facility] [address] [place] [address] ABSCon 03-23-2024 ABSC Gel Interp Negative Normal [facility] Comment on above: Performed By: #### 1 [id number] #### [facility] [address] [place] [address] BLOOD BANKOrdered By: Michelle Fuentes on 03-23-2024 ABO/Rh Interp Positive Invalid Interpretation Code [facility] BB Subsection BLOOD BANKOrdered By: Phoebe Peng on 03-23-2024 ABSC Gel Interp Negative (03/23/24 2:21 PM) Normal [facility] BB Subsection CBC w/Indiceson 03-23-2024 Erythrocyte distribution width (RBC) [Ratio] 14.5 % High 10.9-14.2 [facility] Comment on above: Performed By: #### 2 [id number] #### [facility] [address] [place] [address] Hematocrit (Bld) [Volume fraction] 30.8 % Low 34.0-46.0 [facility] Comment on above: Performed By: #### 2 [id number] #### [facility] [address] [place] [address] Hemoglobin (Bld) [Mass/Vol] 10.5 g/dL Low 12.0-16.0 [facility] Comment on above: Performed By: #### 2 [id number] #### [facility] [address] [place] [address] MCH (RBC) [Entitic mass] 27.0 pg Normal 27.0-34.0 [facility] Comment on above: Performed By: #### 2 [id number] #### [facility] [address] [place] [address] MCHC (RBC) [Mass/Vol] 34.1 g/dL Normal 31.4-36.0 [facility] Comment on above: Performed By: #### 2 [id number] #### [facility] [address] [place] [address] MCV (RBC) [Entitic vol] 79.2 fL Low 80.0-100.0 [facility] Comment on above: Performed By: #### 2 [id number] #### [facility] [address] [place] [address] Platelet 250.0 E9/L Normal 150.0-500.0 [facility] Comment on above: Performed By: #### 2 [id number] #### [facility] [address] [place] [address] Platelet mean volume (Bld) [Entitic vol] 8.4 fL Normal 6.4-10.8 [facility] Comment on above: Performed By: #### 2 [id number] #### [facility] [address] [place] [address] RBC (Bld) [#/Vol] 3.9 E12/L Low 4.3-5.9 [facility] Comment on above: Performed By: #### 2 [id number] #### [facility] [address] [place] [address] RBC size Nom (Bld) NORMAL Invalid Interpretation Code [facility] Comment on above: Performed By: #### 2 [id number] #### [facility] [address] [place], [place] [id number] WBC corrected for nucl RBC Auto (Bld) [#/Vol] 9.5 E9/L Normal 4.0-11.0 [facility] Comment on above: Performed By: #### 2 [id number] #### [facility] [address] [place], [place] [id number] HEMATOLOGYOrdered By: SYSTEM SYSTEM on 03-23-2024 Erythrocyte distribution width (RBC) [Ratio] 14.5 % High 10.9 - 14.2 % [facility] Heme Hematocrit (Bld) [Volume fraction] 30.8 % Low 34.0 - 46.0 % [facility] Hemoglobin (Bld) [Mass/Vol] 10.5 g/dL Low 12.0 - 16.0 gm/dL [facility] MCH (RBC) [Entitic mass] 27.0 pg Normal 27.0 - 34.0 pg [facility]e MCHC (RBC) [Mass/Vol] 34.1 g/dL Normal 31.4 - 36.0 gm/dL [facility] MCV (RBC) [Entitic vol] 79.2 fL Low 80.0 - 100.0 fL [facility] Platelet 250.0 E9/L Normal 150.0 - 500.0 E9/L [facility] Platelet mean volume (Bld) [Entitic vol] 8.4 fL Normal 6.4 - 10.8 fL [facility] RBC (Bld) [#/Vol] 3.9 E12/L Low 4.3 - 5.9 E12/L [facility] RBC size Nom (Bld) NORMAL *NA* (03/23/24 2:21 PM) Invalid Interpretation Code [facility] WBC corrected for nucl RBC Auto (Bld) [#/Vol] 9.5 E9/L Normal 4.0 - 11.0 E9/L [facility] Coding Summary.on 02-24-2024 Coding Summary. LVYXHkky22TMr1uJc+PG h lYWQ+DK9WQTYxX11lsGVi dH2nE9UEBJaTBfybPKTNV XrJTqLynrJkYS1grJLmIL Ju IC8+CW0xFZYvXajrtCBwy 5J6sRG6J46bgi3qBOtbxX R9GHXhVeIelifza9mamZb 6IDcuNmluOyBt RKEtmO56PHX0vB71Vv61g NMlvWVdu9fjaGa6BzDmVS UbYWN8uVanCPemv8UtYDZ xF12ooMBui0I4 JXGnvNvpfGUyJxHxiCY1c N3qXFzhqiago7cpohxwDh c9sz08lRMbz9N3ySE1Q7G bviT0PYTviYMt PcmjdGOLyU5oplweq8pcq bcmUsMcJGQjNSj6XIt6GI AzgBjxQwNgUY29ESQ9ITU pveGwM5OfFFOz lEkdBeI7x7E4Wk1SR3UXX leaS7PQJQYCVQxfkVC+PC 04fk48R6TpOkdnEsj5SLM xVCH3rJG2iL5p SWNmCCxrl2A0xLK5Y3Fsi eOlup2tc4ktELLcNByiP8 9jzOAgw4C8BLGfbSF8WYT gtZvfWeHzpU32 Oyc+MGWgwVjcv1AnZekjx 9kip3pwdIb4CqfbGXTvlp PrpYllKII5o4RfSi1dYHY kzJU3bRD1pO6b HwQgPaZ5LPxrO333LwPcz MNpRgkaT12iN1CbwMV+PH WxKqq1PKYqrHfmUW2zH9X hZGRpbmctbGVm hWdqNI8oUHRfaejnEIHvi H8pHSGkO1s1NdZoRzP9KD mpT7WjRGYsblakUh50yO3 qNrEjJaA8LRwa L6TkczH1TBKdqVWsOVbfM OL2T75xe8O9OMYwCPJtMI I1dFS5aP8lqVmwzrmyoHF mdDsgdmVydGlj IYxdUItiA624NDSvaDecU kNvZGluZyBEYXRlOiAgMD YvMjUvMjAyNDwvdGQ+PHR tQTY0gQivMBOz gLBfHJtqNb8xfNixsBlxD B8aMTGzpsrhCLLzvQ6qXR NtkZKroCxfFY2hIWVbmxb ix617PiTiNCA1 FPRqqFHjS3IuqS7kMtDqJ AKrGLBbR2RbfJYxCRgtT3 13ENapFyC5MOQpvwEbD5C sLWFsaWduOiB0 m5J9Wj0Cy3UexfqyU1Ppf BBoVzOsMeryLKk8I3CmWv wvdHI+CY04ZYRiGA35CAb 8FSF7pAmcUQyb BREbT6NhyV8pHeVbIMLkF GRkOyc+PHRhYmxlIHdpZH RoPScxMDAlJyBzdHlsZT0 pAf0tKHGyXMTg aMxdvFYoRbOvu4bfSTBfW VxdDW6ejXzaF5KlyNL1HC Jlu9f7Mk80O14jQ1PlvME +HWJaqOM7mCX6 cD8vOrDoHoE7FHiuQ398A sGncZMoOaxtq5fjw9gatV t8KzF1BGKtnaIznYlpJOR 2s8PhMm52E61t IHdpZHRoPSIxNSUiIHZhb Eaiif3omY3nAn6+PGNvbC D5lHR2aV4mSwMkLhB6VJb pW179GpZjfIKk Jykty3deh8nohRl7SyPtD VQplsIqtUagEQM4y7XbBy 26X7VcxLnow5JyTzp8zu6 9wCGxx8P7kSZ2 J3IlSGJtghejlTTamVrkS L1jGHSwtyhdNYHxcB2dFQ MnY2w6KgZkDiT8IDoaP4C kctK8EFPxfQUd TDXbuDUJsA4lhfijp1nbw xerThWqKXBpIDz1VLr6HO JcdPagSjSeSRD9AzB5PBH 0gDFrvB2qeXkn foemdH6iOzb+SKW6vCTdx QVIWE0pXezslQY+PHRkIH W3rVhwAUstQAGpnF4gUOY jA4l1BgTeFwQ1 ORpvE6ItyuW4JBQouHReE APcfMTYxG6gtywnm1mxmu myVgGxHLUeNYb7VVs4BCX saWduOiBsZWZ0 SnE3ETH9jZKqsN5gtNcgq vpnuY4uNrz+QmlydGggRG H6RTj2P5PfQsf8NWIpsAn jBW0uwXLnNRuo Hk1kpMezqJmfFM9sHPFpn gjlg747KzGgi5tjKLNeoX XrTDarBLD0A04fy4J8HHK kPNQlDKL6cEI1 jT8guCidtwxodJHurBevk hOrdWtsSMwpSXhrH291TK OctSpyQmFgLQh1G3JnAej 7HTDttHvwXF8c cGUfLHanUk4lbUvryZiqY T0rEEZsysniz279TjAbe0 wdJIPacJTtVHbrIMT0S78 fm1R7VDDbJDFq QVB2iUP9iP5dnLiddzmib GVmdDsgdmVydGljYWwtYW vtA726LIRimJnyZhPtrMi 8K0UuXpl5IIVu kLnbYK3sbXFyENoaGe1zc TielApkRK5mRVQtiisms5 87EtFif8jmRZTkwNGmYPf gSTO2P86ka8J1 IICmIYHyWMD8kYE1lZ0cq GlnbjogbGVmdDsgdmVydG noEZphKNqrB210QUQzhBa nPlBhdGllbnQg UHwlXGs2Z7IvOyourEO+P C77DRVqIT46pBRcpMDga4 qniKq7AsDiZOTvXKB9iQn eIGsyg2IsCFYr B65ylUBem2P8LRSszRjcu ZCmEgNouWT0oJ6pREfrto vpe2frarxfZuoci8nhlw2 0uX21M99hDLev ZHRoPSIzMCUiIHZhbGlnb e7ebY1uKy0+NFYmeKF6nI O0wA7rMPYkEvG8KFbuR90 9InRvcCIvPjxj r0qoc9kmvWb5RoE0NFTex zFclOvcECC6a7KgDs64E5 9sIHdpZHRoPSIyMCUiIHZ gnWovox5vfI6f Ii8+OVZwjRB8oTN9jI8hA yGtAbV3VVnoX043QwPihJ FiJpneC55nR1DnvFN+PHR sLja6GEPmcUyi CN8rlZUwEMpzUc6sUAN2J cXaYeAgXFkmG2QoWWHyey enfcsifIU0KPKmPAWesN0 7Ew0iaAitPSJm vRTOaD7rosscz5mptnfvE uGtKBCcJEm6EXo2OPDamC nzLwHbMWQ4JhR3KOV1qTZ ncP2edOuiktax iO9tH6AnSVKeezjaHs50u I4mIyTkUkR1USsvPwt+T1 VFTExFVFRFLCBBQkFHQUl RJC89Y9RqDyu8 IHFwlUrrTJ0adOOvZXhgC t0wxMulxWwpRW1dXKKgce vtDHRayH2sNARciLGeqYz bGG0hIOThsejz w786IrHnKFO6EZEqvHKbQ 8VtkI6yRaDdOXVrJCAjZ5 WawKRcYHcpG795RYheQqH 3JEHmnxMhM6Wp SRAwjAvkViA5c4C5Sv8xV D7xUX8nWXw9KQ57VV74yL Vsx6A5sNW3E5IuMEBnenn lavvrrTS0YONg XRUspE32pJDmNEkxSi7ul 4G9e425FFLaDHEvrV66Oo 9maNtoTSWjfDCLdN9vfcc lm0axuujvQmIs SWIqHHh4ITy4IKDhcYrtW rJcPPZ7PdI5VGB1cAQrmB 9xmWkrzdsoyX6qCmd+MjQ vRNCxzrI7U7Fs Puf6EEWiuQqrPK9gtBSyB YyzQr4arFappUccGS8qJI WzmgzmFRCqvH9rONHckSH yeXcjCV0nIQBf pmtjq538OjAlJFX0QDGjb MHjJ8MqnV3lXtSxRUTrQH CmK0HwgNVaMRudR928YAx dElB1DZSrcjFa R0TrOWYopUqsUkX7n0O3F v5EMQ1enAO6F3KoGdk8JO IwjCcxCA2ewSUbOXydEh7 ueCdfkIfpSN0c WNNrwmgpELPhzN0xJAIuu IPdqRevOJ1jJORoeqkjf0 48LaXwKDL7KBPouGJgA5U zbS1lQfZqAOXv ETSyY3DaiZTnGLvsM021J AtkUgI0XJOsloMrW0VeHJ VzwPbzGcD6e2F1Mb3IVAG gRHJvcCBvZmY8 L9HhCmzjyUM+DY23ZXPbW L18iGBgfHAra7dizAk9Wb XdXZKaTZY3qZheZGiul5T zGRHbM51qvEPe b7U8KCFgjQblyOOuGgXcz AP0rM6lMWjjmpfmg6cqky qlPklsa1vwbu72cB17H25 sIHdpZHRoPSIz JIWgOAWljRikvf5wcK3jM i8+YMRecYY5vWI6mC4vGk DsIiM3ILplZ460PfEkpKM zQlkib1urs6rl wLb7AbYkQKOghjAruEzuP NS6r0MaIf20E67yMOdyCN RoPSIyMCUiIHZhbGlnbj0 iiD5gKl7+PC9j k0zpbc63pS57mGO+PHRkI XX0iOgjMQglKQQaxF9jDN xzJuK1FAYsReMxmV34cPQ zNLvwCs7toZjq lPacST6wUEXldwpiu160Z zOam5gkJMNjsWHmRKqvPX D9T69sh2B5HMJjFFGmFZQ 4aHG3yN7ouAtn bjogbGVmdDsgdmVydGljY CgjJBlnF855XWLmhLliRi XuwWIdO4iyauKDXP9xHxy vdGQ+PHRkIHN0 zCklHHrdGZVolN0gTKAkX 7l8LtEpXcY4UDkxA2Mhda H2YWKvcYMeFIMrwQMSeO7 cgybfh1tiuogd AuQkYQCoUGr1MVl4JJPnk XmuIgYvGIC1XvO1GNW9tT BdpW2ksUopcaxdjK5wDwb +RklOOjwvdGQ+ EVJzMZO2dMelWSzgQXOqh X3wLUDsW9u0TxJaBtX6AH fkB6KyfuL3WQWqwJGqVRA hqHNLwX8ocmxq l4aixaqkZzOwHJPvXHj5O Iw9MCImyRyoOlHmVRK9Fp W1VTY8qQRqsP4loEhguem jqF7cEvy+TVJO OjwvdGQ+ZNQlZXY6tYeuU NjoEOGuwB5fZHAoE1i5Wj VeFyT2MPnaH6RgrjE4MYU vbGQgMTBwdCBU wP7fnshjq4njoueoRoXwO ZEgTMm3KFt6KPDnsBeuQj TeSUJ3DmO6PPN9xBShjN4 dzVbezwuceI5n Oyc+GME2GEQ7OO20CK36H 3RyPjwvdGFibGU+PHRhYm xlIHdpZHRoPScxMDAlJyB fwHfgBJ7yFv2c ZGVyLWNvbGxhc (more content not included)... Normal [facility] C Urineon 02-18-2024 Bacteria identified Cx Nom (U) Microbiology PROCEDURE: Urine Culture [R1] SOURCE: U Random BODY SITE: COLLECTED DATE/TIME: 02/16/2024 08:30 EDT RECEIVED DATE/TIME: 02/16/2024 19:10 EDT START DATE/TIME: 02/16/2024 19:10 EDT FREE TEXT SOURCE: Rhea LAZARO, You Wilkerson MD, You Greco FINAL REPORTS Final Report [] Verified Date/Time: 02/18/2024 09:51 EDT 25,000 cfu/ml Mixed skin contaminants Performing Locations R1: This test was performed at: [facility], [address] [place] [address], [id number] , [place], [facility] Comment on above: Performed By: #### [id number] #### [facility] [address] [place] [id number] Physician Orderon 02-16-2024 Physician Order [id number]# 1.00TIFF Normal [facility] Discharge Instructionson Discharge Instructions [id number] [id number] .[id number] Normal [facility] ED Clinical Summaryon 2023 ED Clinical Summary [address] [address] ED Clinical Summary Person Information Name: KASSIE CRAWFORD [facility] Age: 23 Years : 2000 Sex: Female Language: Belizean PCP: TUAN HAAS DO Marital Status: Single Phone: [phone] Visit Id: Visit Reason: Vomiting - ; Headache; 6 WEEK PG CAN'T KEEP ANYTHING DOWN BAD HEADACHE Speciality: Acuity: 3 Enc Type: Emergency Med Service: Emergency Arrival: 12/03/2023 21:58:27 Discharge: 12/04/2023 00:16:39 LOS: 000 02:18 Checkin: 12/03/2023 21:58:27 Checkout: 12/04/2023 00:16:39 Dispo Type: Home (Routine DC) EVENTS: Event Name Event Status Request Date/Time Start Date/Time Complete Date/Time Arrive Complete 12/03/2023 21:58:27 12/03/2023 21:58:27 12/03/2023 21:58:27 Document Home Meds Request 12/03/2023 21:58:27 Triage Complete 12/03/2023 21:58:27 12/03/2023 22:08:19 12/03/2023 22:08:19 Registration Complete 12/03/2023 22:02:34 12/03/2023 22:02:34 12/03/2023 22:02:34 Reg Complete Request 12/03/2023 22:02:34 Reg Bed Request Complete 12/03/2023 22:02:34 12/03/2023 22:02:34 12/03/2023 22:02:34 Bed Assign Complete 12/03/2023 22:09:13 12/03/2023 22:09:13 12/03/2023 22:09:13 Dr Exam Complete 12/03/2023 22:09:13 12/03/2023 22:09:30 12/03/2023 22:09:30 RN Exam Complete 12/03/2023 22:09:13 12/03/2023 22:43:33 12/03/2023 22:43:33 Registration Complete 12/03/2023 22:09:30 12/03/2023 22:48:17 12/03/2023 22:48:17 Meds Admin Request 12/03/2023 22:20:08 Discharge Complete 12/03/2023 23:26:53 12/04/2023 00:16:47 12/04/2023 00:16:47 Transfer Complete 12/04/2023 00:16:47 12/04/2023 00:16:47 12/04/2023 00:16:47 ADDRESS: [address] [place] [phone] PHYS DOC NOTES: MEDICAL INFORMATION: Prescriptions Given: New Medications [id number], [address], [place] [id number], [phone] metoclopramide (Reglan 10 mg Tab) 1 Tablets By Mouth every 6 hours. Refills: 0. Medications to Continue with No Changes Other Medications ibuprofen (ibuprofen 600 mg Tab) 1 Tablets By Mouth every 6 hours. Refills: 0. multivitamin (Folinic-Plus oral tablet) multivitamin, ( Multivitamins) 1 Tablets By Mouth every day. omeprazole (omeprazole 20 mg Jaren-) PATIENT EDUCATION INFORMATION: Instructions: Migraine Headache, Dmcp-mm-Kflq; Nausea and Vomiting, Adult, Dkak-so-Qkni Follow up: With: Address: When: TUAN HAAS [address] [place], [place] [id number] Business (1) In 3 days 12/06/2023 Comments: You can use the Reglan every 8 hours as needed for nausea or vomiting or headache. Please follow-up with your primary care doctor next 2 to 3 days for further evaluation and management. Return to the ED for any new or worsening symptoms. DIAGNOSIS: Migraine; N&V (nausea and vomiting) Normal [facility] ED Note-Physicianon 12-04-19 24 ED Note-Physician Basic Information Time Seen: Melissa Yates DO 12/03/2023 22:09 Chief Complaint Vomiting since 1900. Unable to keep fluids or food down. Also states migraine headache. Hx of migraines. Found out today 6 weeks . History of Present Illness Patient is a 23-year-old female with a history of migraines presenting to the ED for evaluation of migraines, nausea and vomiting. Patient states she found out that she was today started having vomiting around 1900 states she is been unable to keep anything down. Patient states when she does develop vomiting she often gets migraines. Patient notes headache on the left side of her head with associated light sensitivity. Patient states this feels similar to previous migraines. Patient denies any fevers, chills, cough, congestion, dizziness or lightheadedness. Denies any abdominal pain, vaginal bleeding. Follows with Dr. Wilkerson. Review of Systems A 10 point review of systems is negative except as noted above. Medical and Surgical History: Reviewed and noted Social history: Lives at home Tobacco: Denies Physical Exam Vitals & Measurements T: 36.7 ?C(Oral) HR: 77(Peripheral) RR: 18 BP: 120/64 SpO2: 98% HT: 170 cm WT: 134.5 kg BMI: 46.54 General: Well developed, non toxic appearing, no acute distress HEENT: Head atraumatic, Mucosa moist, hearing grossly normal Neck: No JVD, tracheal deviation Cardiac: Regular rate, rhythm, no murmurs, or gallops, 2+ radial pulses Respiratory: Lungs clear to auscultation B/L, normal respiratory effort Abdomen: Soft non tender, no rebound or guarding, no peritoneal signs Extremities: No edema noted in the LE B/L, no tenderness to palpation Neurologic: Alert and oriented, speech clear, cranial nerves III through XII intact, no focal neurologic deficits Skin: No rashes or lesions Psych: Appropriate mood and behavior Medical Decision Making MEDICAL DECISION MAKING Number and Complexity of Problems Differential Diagnosis: [] [facility] Data External documents reviewed: [] My EKG interpretation: [] My CT interpretation: [] My X-ray interpretation: [] My Ultrasound interpretation: [] Decision rules/scores evaluated: [] Discussed with: [] Treatment and Disposition ED Course: Patient is a 23-year-old female presenting to the ED for evaluation of headache, nausea, vomiting. Patient is nontoxic and on arrival, no acute distress. No focal deficits noted on examination. Patient states this feels similar to previous migraines. Patient is given Reglan, IV fluids in addition to Tylenol. On reevaluation patient feels significantly improved. She is to follow-up with her primary care doctor in addition to OB for further evaluation management. Patient is given a prescription for Reglan for treatment of her nausea vomiting in addition to headaches. She is to return to the ED for any new or worsening symptoms. Shared decision making: [] Code status: [] Assessment/Plan Migraine (G43.909: Migraine, unspecified, not intractable, without status migrainosus) N&V (nausea and vomiting) (R11.2: Nausea with vomiting, unspecified) Orders: acetaminophen + Generic Diluent 100 mL, 1,000 mg = 100 mL, Soln-IV, IV Piggyback, Once, Stop date 12/03/23 22:19:00 EDT, STAT, Start date 12/03/23 22:19:00 EDT, 400 mL/hr, Infuse over 15 minute(s) metoclopramide, 10 mg = 2 mL, Injection, IV Push, Once, Stop date 12/03/23 22:19:00 EDT, STAT, Start date 12/03/23 22:19:00 EDT, 12/03/23 22:19:00 EDT metoclopramide, 10 mg = 1 tab(s), Oral, q6hr, # 12 tab(s), Refills(s) 0, Pharmacy: [id number], 170, cm, 12/03/23 22:08:00 EDT, Height/Length Dosing, 134.5, kg, 12/03/23 22:08:00 EDT, Weight Dosing Sodium Chloride 0.9% intravenous solution 1,000 mL, 1,000 mL, IV, 983.61 mL/hr, for 30 day(s), Stop date 01/02/24 22:18:00 EDT, STAT, Start date 12/03/23 22:19:00 EDT, 61 minute(s), Total volume (mL): 1,000, 134.5 kg, 2.52, m2 Medications Administered Given Sodium Chloride 0.9% IV Kim 1000 mL 1,000 mL, 1000 mL, IV GenDil 100 mL + [id number] [F] 1000 mg, IV Piggyback metoclopramide 5 mg/mL Inj, 10 mg, IV Push Disposition Plan Discharge Prescription List Prescriptions Reglan 10 mg Tab, 10 mg= 1 tab(s), Oral, q6hr Follow-up With When Contact Information TUAN HAAS In 3 days 12/06/[address] Business (1) Additional Instructions: You can use the Reglan every 8 hours as needed for nausea or vomiting or headache. Please follow-up with your primary care doctor next 2 to 3 days for further evaluation and management. Return to the ED for any new or worsening symptoms. Patient Education Migraine Headache, Twro-ei-Axnk Nausea and Vomiting, Adult, Qghr-lb-Fouf Problem List/Past Medical History Ongoing History of Historical Arthritis Yeast Procedure/Surgical History section ( (more content not included)... Normal [facility] Comment on above: Result Comment: Elec tronically Signed By: Melissa Yates DO\.avril\Date and Time Signed: 12/04/23 01:59 EDT ED Patient Education Noteon 12-04-2023 ED Patient Education Note Gastroenterology Nausea and Vomiting, Adult Nausea is feeling that you have an upset stomach and that you are about to vomit. Vomiting is when food in your stomach forcefully comes out of your mouth. Vomiting can make you feel weak. If you vomit, or if you are not able to drink enough fluids, you may not have enough water in your body (get dehydrated). If you do not have enough water in your body, you may: ? Feel tired. ? Feel thirsty. ? Have a dry mouth. ? Have cracked lips. ? Pee (urinate) less often. Older adults and people with other diseases or a weak body defense system (immune system) are at higher risk for not having enough water in the body. If you feel like you may vomit or you vomit, it is important to follow instructions from your doctor about how to take care of yourself. Follow these instructions at home: Watch your symptoms for any changes. Tell your doctor about them. Eating and drinking ? Take an ORS (oral rehydration solution). This is a drink that is sold at pharmacies and stores. ? Drink clear fluids in small amounts as you are able, such as: ? Water. ? Ice chips. ? Fruit juice that has water added (diluted fruit juice). ? Low-calorie sports drinks. ? Eat bland, zvle-wa-utumbh foods in small amounts as you are able, such as: ? Bananas. ? Applesauce. ? Rice. ? Low-fat (lean) meats. ? Krupp. ? Crackers. ? Avoid drinking fluids that have a lot of sugar or caffeine in them. This includes energy drinks, sports drinks, and soda. ? Avoid alcohol. ? Avoid spicy or fatty foods. General instructions ? Take mkut-tjr-mqbxbzz and prescription medicines only as told by your doctor. ? Drink enough fluid to keep your pee (urine) pale yellow. ? Wash your hands often with soap and water for at least 20 seconds. If you cannot use soap and water, use hand ice cream machine operator. ? Make sure that everyone in your home washes their hands well and often. ? Rest at home until you feel better. ? Watch your condition for any changes. ? Take slow and deep breaths when you feel like you may vomit. ? Keep all follow-up visits. Contact a doctor if: ? Your symptoms get worse. ? You have new symptoms. ? You have a fever. ? You cannot drink fluids without vomiting. ? You feel like you may vomit for more than 2 days. ? You feel light-headed or dizzy. ? You have a headache. ? You have muscle cramps. ? You have a rash. ? You have pain while peeing. Get help right away if: ? You have pain in your chest, neck, arm, or jaw. ? You feel very weak or you faint. ? You vomit again and again. ? You have vomit that is bright red or looks like black coffee grounds. ? You have bloody or black poop (stools) or poop that looks like tar. ? You have a very bad headache, a stiff neck, or both. ? You have very bad pain, cramping, or bloating in your belly (abdomen). ? You have trouble breathing. ? You are breathing very quickly. ? Your heart is beating very quickly. ? Your skin feels cold and clammy. ? You feel confused. ? You have signs of losing too much water in your body, such as: ? Dark pee, very little pee, or no pee. ? Cracked lips. ? Dry mouth. ? Sunken eyes. ? Sleepiness. ? Weakness. These symptoms may be an emergency. Get help right away. Call 911. ? Do not wait to see if the symptoms will go away. ? Do not drive yourself to the hospital. Summary ? Nausea is feeling that you have an upset stomach and that you are about to vomit. Vomiting is when food in your stomach comes out of your mouth. ? Follow instructions from your doctor about eating and drinking. ? Take kxrk-rrh-hmhwpsz and prescription medicines only as told by your doctor. ? Contact your doctor if your symptoms get worse or you have new symptoms. ? Keep all follow-up visits. This information is not intended to replace advice given to you by your health care provider. Make sure you discuss any questions you have with your health care provider. Document Revised: 02/22/2022 Document Reviewed: 02/22/2022 Elsevier Patient Education ? 2022 [employer] Neurology Migraine Headache A migraine headache is a very strong throbbing pain on one side or both sides of your head. This type of headache can also cause other symptoms. It can last from 4 hours to 3 days. Talk with your doctor about what things may bring on (trigger) this condition. What are the causes? The exact cause of this condition is not known. This condition may be triggered or caused by: ? Drinking alcohol. ? Smoking. ? Taking medicines, such as: ? Medicine used to treat chest pain (nitroglycerin). ? control pills. ? Estrogen. ? Some blood pressure medicines. ? Eating or drinking certain products. ? Doing physical activity. Other things that may trigger a migraine headache include: ? Having a menstrual period. ? . ? Hunger. ? Stress. ? Not gettin (more content not included)... Normal [facility] ED Patient Summaryon 024 ED Patient Summary [address] [address] Patient Discharge Instructions Person Information Name: KASSIE CRAWFORD Age: 23 Years Arrival Date: 12/03/2023 21:58:27 Discharge Diagnosis: Migraine; N&V (nausea and vomiting) Primary Care Physician: TUAN HAAS DO Provider Information Primary Provider: Melissa Yates DO Advanced Automatic Log Cut Off Sawyer:None The exam and treatment you received in the Emergency Department were for an urgent problem and are not intended as complete care. It is important that you follow up with a doctor, nurse practitioner, or physician?s back office medical assistant for ongoing care. If your symptoms become worse or you do not improve as expected and you are unable to reach your usual health care provider, you should return to the Emergency Department. We are available 24 hours a day. KASSIE CRAWFORD has been given the following list of patient education materials, prescriptions and follow-up instructions: Follow-up Instructions: With: Address: When: TUAN HAAS [address] [place] [address] [phone] Business (1) In 3 days 12/06/2023 Comments: You can use the Reglan every 8 hours as needed for nausea or vomiting or headache. Please follow-up with your primary care doctor next 2 to 3 days for further evaluation and management. Return to the ED for any new or worsening symptoms. In the event that this physician does not participate in your insurance network, please consult with your insurance company to find a nearby participating provider. Patient Education Materials: Migraine Headache, Ozpn-cw-Vqcn; Nausea and Vomiting, Adult, Fdih-zk-Gdhj A MESSAGE TO ALL PATIENTS REGARDING OPIOIDS PRESCRIPTION OPIOIDS: WHAT YOU NEED TO KNOW Prescription opioids can be used to help relieve nngvehva-ws-wgibwq pain and are often prescribed following a surgery or injury, or for certain health conditions. These medications can be an important part of the treatment but also come with serious risks. It is important to work with your healthcare provider to make sure you are getting the safest, most effective care. WHAT ARE THE RISKS AND SIDE EFFECTS OF OPIOID USE? Prescription opioids carry serious risks of addiction and overdose, especially with prolonged use. An opioid overdose, often marked by slowed breathing, can cause sudden . The use of prescription opioids can have a number of side effects as well, even when taken as directed: ? Tolerance?meaning you might need to take more of the medication for the same pain relief ? Physical dependence?meaning you have symptoms of withdrawal when a medication is stopped ? Increased sensitivity to pain ? Constipation ? Nausea, vomiting, and dry mouth ? Sleepiness and dizziness ? Confusion ? Depression ? Low levels of testosterone that can result in lower sex drive, energy, and strength ? Itching and sweating RISKS ARE GREATER WITH: ? History of drug misuse, substance use disorder, or overdose ? Mental health conditions (such as depression or anxiety) ? Sleep apnea ? Older age (65 years and older) ? Avoid alcohol while taking prescription opioids. Also, unless specifically advised by your health care provider, medications to avoid include: ? Benzodiazepines (such as Xanax or Valium) ? Muscle relaxants (such as Soma or Flexeril) ? Hypnotics (such as Ambien or Lunesta) ? Other prescription opioids KNOW YOUR OPTIONS Talk to your health care provider about ways to manage your pain that don?t involve prescription opioids. Some of these options may actually work better and have fewer risks and side effects. Options may include: ? Pain relievers such as acetaminophen, ibuprofen, and naproxen ? Some medication that are also used for depression or seizures ? Physical therapy and exercise ? Cognitive behavioral therapy, a psychological, goal-directed approach, in which patients learn how to modify physical, behavioral, and emotional triggers of pain and stress. IF YOU ARE PRESCRIBED OPIOIDS FOR PAIN: ? Never take opioids in greater amounts or more often than prescribed. ? Follow up with your primary health care provider. o Work together to create a plan on how to manage your pain. o Talk about ways to help manage your pain that don?t involve prescription opioids. o Talk about any and all concerns and side effects. ? Help prevent misuse and abuse o Never sell or share prescription opioids. o Never use another person?s prescription opioids. ? Store prescription opioids in a secure place and out of reach of others (this may include visitors, children, friends, and family). ? Safely dispose of unused prescription opioids: Find your community drug take-back program or your pharmacy mail-back program, or flush them down the toilet, following guidance from the Food and Drug Administration (www.fda.gov (more content not included)... [facility]20[place] [address] m[IU]/mL High 1-3 F [facility] Comment on above: Result Comment: 'F N ON < 1 - 3' ' 0.2 - 1 WEEK = 5 TO 50' ' 1 - 2 WEEKS = 50 - 500' ' 2 - 3 WEEKS = 100 - 5000' ' 3 - 4 WEEKS = 500 - 51290' ' 4 - 5 WEEKS = 1000 - 74235' ' 5 - 6 WEEKS = 41183 - 504273' ' 6 - 8 WEEKS = 19958 - 466646' ' 8 - 12 WEEKS = 24097 - 318641' Performed By: #### 2 [id number] #### [facility] [address] [place] [address] CHEMISTRYOrdered By: SYSTEM SYSTEM on 12-03-2023 [place] [address] m[IU]/mL High 1 - 3 mIU/mL [facility] Comment on above: Result Comment: 'F N ON < 1 - 3' ' 0.2 - 1 WEEK = 5 TO 50' ' 1 - 2 WEEKS = 50 - 500' ' 2 - 3 WEEKS = 100 - 5000' ' 3 - 4 WEEKS = 500 - 94786' ' 4 - 5 WEEKS = 1000 - 94079' ' 5 - 6 WEEKS = 83926 - 993087' ' 6 - 8 WEEKS = 12730 - 631031' ' 8 - 12 WEEKS = 17715 - 714260' Progesterone Lvl 7.09 ng/mL Invalid Interpretation Code [facility] Comment on above: Result Comment: 'F N ON FOLLICULAR = 0.10 - 0.60' 'LUTEAL = 3.00 - 17.5' 'MIDLUTEAL = 3.30 - 18.6' 'POST-MENOPAUSE = 0.10 - 0.40' '-FIRST TRIMESTER = 8.30 - 66.5' 'SECOND TRIMESTER = 18.9 - 66.1' 'THIRD TRIMESTER = 35.8 - 312.4' 'MALES = 0.14 - 2.06' Consent for Treatmenton Consent for Treatment [id number] .00TIFF Normal [facility] Consent for Treatment [id number] .00TIFF Normal [facility] Physician Orderon 12-03-2023 Physician Order [id number]# 1.00TIFF Normal [facility] Progesteroneon 12-03-2023 Progesterone Lvl 7.09 ng/mL Invalid Interpretation Code [facility] Comment on above: Result Comment: 'F N ON FOLLICULAR = 0.10 - 0.60' 'LUTEAL = 3.00 - 17.5' 'MIDLUTEAL = 3.30 - 18.6' 'POST-MENOPAUSE = 0.10 - 0.40' '-FIRST TRIMESTER = 8.30 - 66.5' 'SECOND TRIMESTER = 18.9 - 66.1' 'THIRD TRIMESTER = 35.8 - 312.4' 'MALES = 0.14 - 2.06' Performed By: #### 2 [id number] #### [facility] [address] [place] [address] C. diff by PCRon 10-05-2023 Clostridium difficile by PCR Negative Normal Negative [facility] Comment on above: Order Comment: Order added by Discern Expert. Result Comment: This test result should be correlated with clinical presentations and medical history by a healthcare provider to determine its clinical significance. Performed By: #### 1 [id number], [id number] #### [facility] [address] [place] [address] CDiff PCRon 10-05-2023 Cdiff Specimen Acceptable Acceptable Normal [facility] Comment on above: Performed By: #### 1 [id number] #### [facility] [address] [place] [address] Order Cancelled No, PCR to follow Normal [facility] Comment on above: Performed By: #### 1 [id number], [id number] #### [facility] [address] [place] [address] Consent for Treatmenton Consent for Treatment [id number] .00TIFF Normal [facility] Discharge Instructionson Discharge Instructions [id number]# 1.00TIFF Normal [facility] ED Clinical Summaryon 2023 ED Clinical Summary [address] [address] ED Clinical Summary Person Information Name: KASSIE CRAWFORD [facility] Age: 23 Years : 2000 Sex: Female Language: Belizean PCP: TUAN HAAS DO Marital Status: Single Phone: [phone] Visit Id: Visit Reason: Dysuria; Diarrhea; FREQUENT URINATION Speciality: Acuity: 3 Enc Type: Emergency Med Service: Emergency Arrival: 10/05/2023 07:44:13 Discharge: 10/05/2023 10:48:53 LOS: 000 03:04 Checkin: 10/05/2023 07:44:13 Checkout: 10/05/2023 10:48:53 Dispo Type: Home (Routine DC) EVENTS: Event Name Event Status Request Date/Time Start Date/Time Complete Date/Time Arrive Complete 10/05/2023 07:44:13 10/05/2023 07:44:13 10/05/2023 07:44:13 Document Home Meds Request 10/05/2023 07:44:13 Triage Complete 10/05/2023 07:44:13 10/05/2023 07:51:38 10/05/2023 07:51:38 Bed Assign Complete 10/05/2023 07:46:39 10/05/2023 07:46:39 10/05/2023 07:46:39 Dr Exam Complete 10/05/2023 07:46:39 10/05/2023 07:47:03 10/05/2023 07:47:03 RN Exam Complete 10/05/2023 07:46:39 10/05/2023 07:57:33 10/05/2023 07:57:33 Registration Complete 10/05/2023 07:47:03 10/05/2023 08:13:14 10/05/2023 08:13:14 Pending Labs Complete 10/05/2023 07:47:49 10/05/2023 09:35:42 Lab Complete 10/05/2023 07:47:49 10/05/2023 09:35:42 Urine Collect Complete 10/05/2023 07:47:49 10/05/2023 09:35:42 Pending Labs Inlab 10/05/2023 08:02:38 Reg Complete Request 10/05/2023 08:13:14 Reg Bed Request Complete 10/05/2023 08:13:14 10/05/2023 08:13:14 10/05/2023 08:13:14 Pending Labs Complete 10/05/2023 10:35:16 10/05/2023 10:35:16 10/05/2023 10:35:36 Discharge Complete 10/05/2023 10:39:06 10/05/2023 10:51:58 10/05/2023 10:51:58 Transfer Complete 10/05/2023 10:51:58 10/05/2023 10:51:58 10/05/2023 10:51:58 ADDRESS: [address] [place] [address] [id number] DOC NOTES: MEDICAL INFORMATION: Prescriptions Given: Medications to Continue with No Changes Other Medications ibuprofen (ibuprofen 600 mg Tab) 1 Tablets By Mouth every 6 hours. Refills: 0. multivitamin (Folinic-Plus oral tablet) multivitamin, ( Multivitamins) 1 Tablets By Mouth every day. omeprazole (omeprazole 20 mg iFona) PATIENT EDUCATION INFORMATION: Instructions: Food Choices to Help Relieve Diarrhea, Adult; Dysuria; Diarrhea, Adult Follow up: With: Address: When: TUAN HAAS [address] [place] [phone] Business (1) In 3 days 10/08/2023 Comments: Take Imodium mbfd-lcz-chcwrhf as instructed. Return to the emergency room if your diarrhea gets worse, blood in diarrhea, fever or any new symptoms. DIAGNOSIS: 1:Diarrhea; 2:Dysuria Normal [facility] ED Note-Physicianon 10-05-19 ED Note-Physician Basic Information Time Seen: Jose Tovar M.D. 10/05/2023 07:47 Chief Complaint started last night with diarrhea and burning with urination History of Present Illness The patient is a 23-year-old female 4 months who presented to the emergency room with diarrhea. The patient states since yesterday she has been having watery diarrhea. She states has been having frequent bowel movement. She has been taking Pepto-Bismol. She reports some abdominal cramping on and off. Denies any fever denies any chills. The patient denies any nausea denies any vomiting. She reports some burning with urination. The patient denies any bad food. She denies any recent antibiotic use. The patient denies any recent traveling. She denies any sick contact with somebody who has had diarrhea. The patient denies any other associated symptoms. Review of Systems Additional ROS info: Except as noted in the above Review of Systems and in the History of Present Illness all other systems have been reviewed and are negative or noncontributory. Physical Exam Vitals & Measurements T: 36.6 ?C(Oral) HR: 95(Peripheral) RR: 20 BP: 133/80 SpO2: 95% HT: 167 cm WT: 118 kg BMI: 42.31 General: alert, no acute distress Skin: warm, dry Head: no trauma, normocephalic Neck: Trachea midline, no tenderness, supple Eye: normal conjunctiva, sclera clear, PERRL, EOMI, vision unchanged ENMT: Oral mucosa moist, no pharyngeal erythema or exudate Cardiovascular: regular rate and rhythm Respiratory: Lungs CTA, respirations non labored, breath sounds equal Gastrointestinal: soft, non distended, no tenderness, no guarding Extremities: no deformity, no trauma Neurological: Alert and oriented, speech normal, no focal neuro deficits Psychiatric: cooperative, affect appropriate for age, Medical Decision Making MEDICAL DECISION MAKING Number and Complexity of Problems Differential Diagnosis: [] [facility] Data External documents reviewed: [] My EKG interpretation: [] My CT interpretation: [] My X-ray interpretation: [] My Ultrasound interpretation: [] Decision rules/scores evaluated: [] Discussed with: [] Treatment and Disposition ED Course: The patient presented with diarrhea. She denies any blood with her diarrhea. She denies any abdominal pain denies any vomiting. She reported some dysuria as well. The urine shows no elements of infection. The C. difficile is negative. The patient does not appear to be toxic. She does not appear to be dehydrated. We had a long discussion with the patient about oral hydration. She was instructed to use the Pedialyte Gatorade. The enteric panel by PCR is pending. Will discharge patient home she is instructed to take Imodium and follow-up with her primary doctor. She is instructed to return to the emergency room if her diarrhea gets worse, blood with her diarrhea, fever or any new symptoms. Shared decision making: [] Code status: [] Assessment/Plan 1. Diarrhea (R19.7: Diarrhea, unspecified) 2. Dysuria (R30.0: Dysuria) Orders: Clostridium difficile by PCR Clostridium Difficile PCR Enteric Panel by PCR U Beta Hcg Qual UA With Cult Reflex Disposition Plan Patient Discharge Condition Stable Discharge Disposition Discharge home Discharge Prescription List Prescriptions No active prescription medications Follow-up With When Contact Information TUAN WALDO In 3 days 10/08/2023 [place] [phone] Business (1) Additional Instructions: Take Imodium chaf-bzl-tfcchph as instructed. Return to the emergency room if your diarrhea gets worse, blood in diarrhea, fever or any new symptoms. Patient Education Food Choices to Help Relieve Diarrhea, Adult Dysuria Diarrhea, Adult Problem List/Past Medical History Ongoing History of Historical Arthritis Yeast Procedure/Surgical History section (07/17/2018), delivery, moles removed under local. Medications Inpatient No active inpatient medications Home Folinic-Plus oral tablet ibuprofen 600 mg Tab, 600 mg= 1 tab(s), Oral, q6hr omeprazole 20 mg Cap-DR Multivitamins, 1 tab(s), Oral, Daily Allergies No Known Allergies Social History Alcohol - Denies Alcohol Use, 10/18/2016 Current, 04/28/2020 Current, 06/17/2019 Current, 01/28/2018 Current, 11/06/2017 Home/Environment Lives with Children. Living situation: Home/Independent. Alcohol abuse in household: No. Substance abuse in household: No. Smoker in household: No. Family/Friends available for support: Yes., 05/26/2023 Nutrition/Health Regular, 05/26/2023 Substance Abuse - Denies Substance Abuse, 10/18/2016 Current, 04/28/2020 Current, 06/17/2019 Current, 01/28/2018 Current, 11/06/2017 Tobacco - Denies Tobacco Use, 10/18/2016 Never (less than 100 in lifetime) Tobacco Use:. Neve (more content not included)... Normal [facility] Comment on above: Result Comment: Elec tronically Signed By: [place], Jose Bella\.br\Date and Time Signed: 10/05/23 10:57 EST ED Patient Education Noteon 10-05-2023 ED Patient Education Note Gastroenterology Food Choices to Help Relieve Diarrhea, Adult Diarrhea can make you feel weak and cause you to become dehydrated. It is important to choose the right foods and drinks to: ? Relieve diarrhea. ? Replace lost fluids and nutrients. ? Prevent dehydration. What are tips for following this plan? Relieving diarrhea ? Avoid foods that make your diarrhea worse. These may include: ? Foods and beverages sweetened with high-fructose corn syrup, honey, or sweeteners such as xylitol, sorbitol, and mannitol. ? Fried, greasy, or spicy foods. ? Raw fruits and vegetables. ? Eat foods that are rich in probiotics. These include foods such as yogurt and fermented milk products. Probiotics can help increase healthy bacteria in your stomach and intestines (gastrointestinal tract or GI tract). This may help digestion and stop diarrhea. ? If you have lactose intolerance, avoid dairy products. These may make your diarrhea worse. ? Take medicine to help stop diarrhea only as told by your health care provider. Replacing nutrients ? Eat bland, kknr-lm-pphwrd foods in small amounts as you are able, until your diarrhea starts to get better. These foods include bananas, applesauce, rice, toast, and crackers. ? Gradually reintroduce nutrient-rich foods as tolerated or as told by your health care provider. This includes: ? Well-cooked protein foods, such as eggs, lean meats like fish or chicken without skin, and tofu. ? Peeled, seeded, and soft-cooked fruits and vegetables. ? Low-fat dairy products. ? Whole grains. ? Take vitamin and mineral supplements as told by your health care provider. Preventing dehydration ? Start by sipping water or a solution to prevent dehydration (oral rehydration solution, ORS). This is a drink that helps replace fluids and minerals your body has lost. You can buy an ORS at pharmacies and retail stores. ? Try to drink at least 8?10 cups (2,000?2,500 mL) of fluid each day to help replace lost fluids. If you have urine that is pale yellow, you are getting enough fluids. ? You may drink other liquids in addition to water, such as fruit juice that you have added water to (diluted fruit juice) or low-calorie sports drinks, as tolerated or as told by your health care provider. ? Avoid drinks with caffeine, such as coffee, tea, or soft drinks. ? Avoid alcohol. Summary ? When you have diarrhea, it is important to choose the right foods and drinks to relieve diarrhea, to replace lost fluids and nutrients, and to prevent dehydration. ? Make sure you drink enough fluid to keep your urine pale yellow. ? You may benefit from eating bland foods at first. Gradually reintroduce healthy, nutrient-rich foods as tolerated or as told by your health care provider. ? Avoid foods that make your diarrhea worse, such as fried, greasy, or spicy foods. This information is not intended to replace advice given to you by your health care provider. Make sure you discuss any questions you have with your health care provider. Document Revised: 11/08/2022 Document Reviewed: 10/03/2020 [employer] Patient Education ? 2022 [employer] Infectious Disease Diarrhea, Adult Diarrhea is frequent loose and watery bowel movements. Diarrhea can make you feel weak and cause you to become dehydrated. Dehydration can make you tired and thirsty, cause you to have a dry mouth, and decrease how often you urinate. Diarrhea typically lasts 2?3 days. However, it can last longer if it is a sign of something more serious. It is important to treat your diarrhea as told by your health care provider. Follow these instructions at home: Eating and drinking Follow these recommendations as told by your health care provider: ? Take an oral rehydration solution (ORS). This is an pqza-hur-gsgbelx medicine that helps return your body to its normal balance of nutrients and water. It is found at pharmacies and retail stores. ? Drink plenty of fluids, such as water, ice chips, diluted fruit juice, and low-calorie sports drinks. You can drink milk also, if desired. ? Avoid drinking fluids that contain a lot of sugar or caffeine, such as energy drinks, sports drinks, and soda. ? Eat bland, gfop-ow-briovv foods in small amounts as you are able. These foods include bananas, applesauce, rice, lean meats, toast, and crackers. ? Avoid alcohol. ? Avoid spicy or fatty foods. Medicines ? Take sojr-dbm-oycekhd and prescription medicines only as told by your health care provider. ? If you were prescribed an antibiotic medicine, take it as told by your health care provider. Do not stop using the antibiotic even if you start to feel better. General instructions ? Wash your hands often using soap and water. If soap and water are not available, use a hand ice cream machine operator. Others in the household sh (more content not included)... Normal [facility] ED Patient Summaryon 024 ED Patient Summary [address] [address] Patient Discharge Instructions Person Information Name: KASSIE CRAWFORD Age: 23 Years Arrival Date: 10/05/2023 07:44:13 Discharge Diagnosis: 1:Diarrhea; 2:Dysuria Primary Care Physician: TUAN HAAS DO Provider Information Primary Provider: Jose Tovar M.D. Advanced Automatic Log Cut Off Sawyer:None The exam and treatment you received in the Emergency Department were for an urgent problem and are not intended as complete care. It is important that you follow up with a doctor, nurse practitioner, or physician?s back office medical assistant for ongoing care. If your symptoms become worse or you do not improve as expected and you are unable to reach your usual health care provider, you should return to the Emergency Department. We are available 24 hours a day. KASSIE CRAWFORD has been given the following list of patient education materials, prescriptions and follow-up instructions: Follow-up Instructions: With: Address: When: TUAN WALDO [address] [place] [address] Business (1) In 3 days 10/08/2023 Comments: Take Imodium jksn-flg-wujytgg as instructed. Return to the emergency room if your diarrhea gets worse, blood in diarrhea, fever or any new symptoms. In the event that this physician does not participate in your insurance network, please consult with your insurance company to find a nearby participating provider. Patient Education Materials: Food Choices to Help Relieve Diarrhea, Adult; Dysuria; Diarrhea, Adult A MESSAGE TO ALL PATIENTS REGARDING OPIOIDS PRESCRIPTION OPIOIDS: WHAT YOU NEED TO KNOW Prescription opioids can be used to help relieve eyeuwjud-ml-krdlwu pain and are often prescribed following a surgery or injury, or for certain health conditions. These medications can be an important part of the treatment but also come with serious risks. It is important to work with your healthcare provider to make sure you are getting the safest, most effective care. WHAT ARE THE RISKS AND SIDE EFFECTS OF OPIOID USE? Prescription opioids carry serious risks of addiction and overdose, especially with prolonged use. An opioid overdose, often marked by slowed breathing, can cause sudden . The use of prescription opioids can have a number of side effects as well, even when taken as directed: ? Tolerance?meaning you might need to take more of the medication for the same pain relief ? Physical dependence?meaning you have symptoms of withdrawal when a medication is stopped ? Increased sensitivity to pain ? Constipation ? Nausea, vomiting, and dry mouth ? Sleepiness and dizziness ? Confusion ? Depression ? Low levels of testosterone that can result in lower sex drive, energy, and strength ? Itching and sweating RISKS ARE GREATER WITH: ? History of drug misuse, substance use disorder, or overdose ? Mental health conditions (such as depression or anxiety) ? Sleep apnea ? Older age (65 years and older) ? Avoid alcohol while taking prescription opioids. Also, unless specifically advised by your health care provider, medications to avoid include: ? Benzodiazepines (such as Xanax or Valium) ? Muscle relaxants (such as Soma or Flexeril) ? Hypnotics (such as Ambien or Lunesta) ? Other prescription opioids KNOW YOUR OPTIONS Talk to your health care provider about ways to manage your pain that don?t involve prescription opioids. Some of these options may actually work better and have fewer risks and side effects. Options may include: ? Pain relievers such as acetaminophen, ibuprofen, and naproxen ? Some medication that are also used for depression or seizures ? Physical therapy and exercise ? Cognitive behavioral therapy, a psychological, goal-directed approach, in which patients learn how to modify physical, behavioral, and emotional triggers of pain and stress. IF YOU ARE PRESCRIBED OPIOIDS FOR PAIN: ? Never take opioids in greater amounts or more often than prescribed. ? Follow up with your primary health care provider. o Work together to create a plan on how to manage your pain. o Talk about ways to help manage your pain that don?t involve prescription opioids. o Talk about any and all concerns and side effects. ? Help prevent misuse and abuse o Never sell or share prescription opioids. o Never use another person?s prescription opioids. ? Store prescription opioids in a secure place and out of reach of others (this may include visitors, children, friends, and family). ? Safely dispose of unused prescription opioids: Find your community drug take-back program or your pharmacy mail-back program, or flush them down the toilet, following guidance from the Food and Drug Administration (www.fda.gov/Drugs/Re sourcesForYou). ? Visit www.cdc.gov/drugoverd ose to learn about the risks of opioids abuse an (more content not included)... Normal [facility] Enteric Panel by PCRon 10-05 C. coli+jejuni+upsaliensis DNA SAMIR+non-probe Ql (Stl) Not detected Normal [facility] Comment on above: Result Comment: Test ing was performed utilizing reverse kitchen utility associate (RT), polymerase chain reaction (PCR), and array hybridization to detect specific gastrointestinal microbial nucleic acid gene sequences associated with the following pathogenic bacteria and viruses:Campylobacter Group (composed of C. coli, C. jejuni, and C. radha), Salmonella species, Shigella species (including S. dysenteriae, S. boydii, S. sonnei and S. flexneri), Vibrio Group (composed of V. cholera and V. parahaemolyticus), Yersinia enterocolitica, Norovirus GI/GII, and Rotavirus A. In addition, EPdetects Shiga toxin 1 gene and Shiga toxin 2 gene virulence markers. Shiga toxin producing E. coli (STEC) typically harbor one or both genes that encode for Shiga toxins 1 and 2. Campylobacter group, Salmonella species, Shigella species, Vibrio group, Rotavirus A, Shiga Toxin 1, Shiga Toxin 2, Norovirus GI/GII, and Yersinia enterocolitica were tested by Verigene nulcleic acid test. Performed By: #### 1 [id number], [id number] #### [facility] [address] [place] [address] E. coli stx1+stx2 genes SAMIR+non-probe Ql (Stl) Negative Normal [facility] Comment on above: Performed By: #### 1 [id number], [id number] #### [facility] [address] [place] [address] Enteric Panel Intrl QC Pass Normal [facility] Comment on above: Result Comment: Test ing was performed utilizing reverse kitchen utility associate (RT), polymerase chain reaction (PCR), and array hybridization to detect specific gastrointestinal microbial nucleic acid gene sequences associated with the following pathogenic bacteria and viruses:Campylobacter Group (composed of C. coli, C. jejuni, and C. radha), Salmonella species, Shigella species (including S. dysenteriae, S. boydii, S. sonnei and S. flexneri), Vibrio Group (composed of V. cholera and V. parahaemolyticus), Yersinia enterocolitica, Norovirus GI/GII, and Rotavirus A. In addition, EPdetects Shiga toxin 1 gene and Shiga toxin 2 gene virulence markers. Shiga toxin producing E. coli (STEC) typically harbor one or both genes that encode for Shiga toxins 1 and 2. Performed By: #### 1 [id number], [id number] #### [facility] [address] [place] [address] Norovirus genogroup I+II RNA SAMIR+non-probe Ql (Stl) Not detected Normal [facility] Comment on above: Performed By: #### 1 [id number], [id number] #### [facility] [address] [place] [address] Rotavirus A RNA SAMIR+non-probe Ql (Stl) Not detected Normal [facility] Comment on above: Performed By: #### 1 [id number], [id number] #### [facility] [address] [place] [address] S. enterica+bongori DNA SAMIR+non-probe Ql (Stl) Not detected Normal [facility] Comment on above: Result Comment: This test result should be correlated with clinical presentations and medical history by a healthcare provider to determine its clinical significance. Performed By: #### 1 [id number], [id number] #### [facility] [address] [place] [address] Shigella species+EIEC invasion plasmid antigen H ipaH gene SAMIR+non-probe Ql (Stl) Not detected Normal [facility] Comment on above: Performed By: #### 1 [id number], [id number] #### [facility] [address] [place] [address] V. cholerae+parahaemolytic us+vulnificus DNA SAMIR+non-probe Ql (Stl) Not detected Normal [facility] Comment on above: Performed By: #### 1 [id number], [id number] #### [facility] [address] [place] [address] Y. enterocolitica DNA SAMIR+non-probe Ql (Stl) Not detected Normal [facility] Comment on above: Performed By: #### 1 [id number], [id number] #### [facility] [address] [place] [address] SEROLOGYOrdered By: Starr stark on 10-05-2023 HCG.beta subunit (U) [Moles/Vol] Negative Normal [facility] Man Sero U BetaHcg Qualon 10-05-2023 HCG.beta subunit (U) [Moles/Vol] Negative Normal [facility] Comment on above: Performed By: #### 1 [id number], [id number] #### [facility] [address] [place] [address] UA With Cult Reflexon 2023 Bacteria LM Ql (Urine sed) 1+ /HPF Abnormal Trace [facility] Comment on above: Performed By: #### 1 [id number], [id number] #### [facility] [address] [place] [address] Bilirubin Ql (U) Negative Normal Negative [facility] Comment on above: Performed By: #### 1 [id number], [id number] #### [facility] [address] [place] [address] Clarity (U) CLEAR Normal Clear [facility] Comment on above: Performed By: #### 1 [id number], [id number] #### [facility] [address] [place] [address] Color (U) YELLOW Normal Yellow [facility] Comment on above: Performed By: #### 1 [id number], [id number] #### [facility] [address] [place] [address] Epithelial cells.squamous LM.HPF (Urine sed) [#/Area] 5-8 Normal 0-2 [facility] Comment on above: Performed By: #### 1 [id number], [id number] #### [facility] [address] [place] [address] Glucose Test strip (U) [Mass/Vol] Negative Normal Negative [facility] Comment on above: Performed By: #### 1 [id number], [id number] #### [facility] [address] [place] [address] Hemoglobin Ql (U) TRACE Abnormal Negative [facility] Comment on above: Performed By: #### 1 [id number], [id number] #### [facility] [address] [place] [address] Ketones (U) [Mass/Vol] Negative Normal Negative [facility] Comment on above: Performed By: #### 1 [id number], [id number] #### [facility] [address] [place] [address] [place].plasma/[place]. RBC (Bld) [Mass ratio] 4-20 Normal 0-3 [facility] Comment on above: Performed By: #### 1 [id number], [id number] #### [facility] [address] [place] [address] Mucus Ql (Urine sed) 1+ Normal [facility] Comment on above: Performed By: #### 1 [id number], [id number] #### [facility] [address] [place] [address] Nitrite Ql (U) Negative Normal Negative [facility] Comment on above: Performed By: #### 1 [id number], [id number] #### [facility] [address] [place] [address] pH (U) 6.0 [pH] Invalid Interpretation Code 5.0-9.0 [facility] Comment on above: Performed By: #### 1 [id number], [id number] #### [facility] [address] [place] [address] Protein (U) [Mass/Vol] TRACE Abnormal Negative [facility] Comment on above: Performed By: #### 1 [id number], [id number] #### [facility] [address] [place] [address] Specific gravity (U) [Rel density] >=1.030 Invalid Interpretation Code 1.005-1.030 [facility] Comment on above: Performed By: #### 1 [id number], [id number] #### [facility] [address] [place] [address] Type of Urine collection method Clean Catch Normal [facility] Comment on above: Performed By: #### 1 [id number], [id number] #### [facility] [address] [place] [address] Urobilinogen Qn (U) 0.2 {Enedelia'U}/dL Normal 0.0-1.0 [facility] Comment on above: Performed By: #### 1 [id number], [id number] #### [facility] [address] [place] [address] WBC Auto Ql (U) Negative Normal Negative [facility] Comment on above: Performed By: #### 1 [id number], [id number] #### [facility] [address] [place] [address] WBC LM.HPF (Urine sed) [#/Area] 0-5 Normal 0-5 [facility] Comment on above: Performed By: #### 1 [id number], [id number] #### [facility] [address] [place] [address] URINALYSISOrdered By: Starr clemente on 10-05-2023 Bacteria LM Ql (Urine sed) 1+ /HPF Invalid Interpretation Code Trace/HPF [facility] UA Auto SS Bilirubin Ql (U) Negative (10/05/23 9:19 AM) Normal Negative [facility] UA Auto SS Clarity (U) Clear (10/05/23 9:19 AM) Normal Clear [facility] UA Auto SS Color (U) Yellow (10/05/23 9:19 AM) Normal Yellow [facility] UA Auto SS Epithelial cells.squamous LM.HPF (Urine sed) [#/Area] 5-8 /HPF Normal 0-2/HPF [facility] UA Aut o SS Glucose Test strip (U) [Mass/Vol] Negative (10/05/23 9:19 AM) Normal Negative [facility] UA Auto SS Hemoglobin Ql (U) Trace *ABN* (10/05/23 9:19 AM) Invalid Interpretation Code Negative [facility] UA Auto SS Ketones (U) [Mass/Vol] Negative (10/05/23 9:19 AM) Normal Negative [facility] UA Auto SS [place].plasma/[place]. RBC (Bld) [Mass ratio] 4-20 /HPF Normal 0-3/HPF [facility] UA A uto SS Mucus Ql (Urine sed) 1+ (10/05/23 9:19 AM) Normal [facility] UA Auto SS Nitrite Ql (U) Negative (10/05/23 9:19 AM) Normal Negative [facility] UA Auto SS pH (U) 6.0 *NA* (10/05/23 9:19 AM) Invalid Interpretation Code 5.0 - 9.0 [facility] UA Auto SS Protein (U) [Mass/Vol] Trace *ABN* (10/05/23 9:19 AM) Invalid Interpretation Code Negative [facility] UA Auto SS Specific gravity (U) [Rel density] >=1.030 *NA* (10/05/23 9:19 AM) Invalid Interpretation Code 1.005 - 1.030 [facility] UA Auto SS UA Spec Desc Clean Catch (10/05/23 9:19 AM) Normal [facility] UA Auto SS Urobilinogen Qn (U) 0.4749933 {Enedelia'U}/dL Normal 0.0 - 1.0 EU/dL [facility] UA Auto SS WBC Auto Ql (U) Negative (10/05/23 9:19 AM) Normal Negative [facility] UA Auto SS WBC LM.HPF (Urine sed) [#/Area] 0-5 /HPF Normal 0-5/HPF [facility] UA Auto SS PAP [id number] 07-11-2023 Cytology report Cyto stain Doc (Cvx/Vag) Note Invalid Interpretation Code [facility] Comment on above: Result Comment: TEST S RESULT FLAG UNITS REF RANGE LAB Clinician Provided Cytology Information Source.............Cervix No. of containers..01 ThinPrep Vial DIAGNOSIS: 01 NEGATIVE FOR INTRAEPITHELIAL LESION OR MALIGNANCY. Specimen adequacy: 01 Satisfactory for evaluation. Endocervical and/or squamous metaplastic cells (endocervical component) are present. Performed by: Arie Beauchamp, Magistrate Judge (ASC) . 01 Note: Note 01 The Pap smear is a screening test designed to aid in the detection of premalignant and malignant conditions of the uterine cervix. It is not a diagnostic procedure and should not be used as the sole means of detecting cervical cancer. Both false-positive and false-negative reports do occur. Test Methodology: Note 01 This liquid based ThinPrep(R) pap test was screened with the use of an image guided system. . 01 The HPV DNA reflex criteria were not met with this specimen result therefore, no HPV testing was performed. FLAG LEGEND: L-Low Normal,H-High Normal,LL-Alert Low,HH-Alert High <-Panic Low,>-Panic High,A-Abnormal,AA-Critical Abnormal Performed at: 01 [facility] [address] [id number] Mayelin Zapien MD, Performed at: [facility] [id number] MD Rupali Dick Performed By: #### 3 [id number] ####[address] [place] [address] Nursing Assessmenton 023 Nursing Assessment [id number]# 1.00TIFF Normal [facility] PAP [id number] 07-07-2023 Collection Technique BRUSH-SPATULA Normal [facility] Comment on above: Performed By: #### 3 [id number] ####[address] [place] [address] Gynecological Body Site CERVIX Normal [facility] Comment on above: Performed By: #### 3 [id number] ####[address] [place] [address] Physician Orderon 07-07-2023 Physician Order [id number]#1 .00TIFF Normal [facility] Insurance Correspondence Off 07-02-2023 Insurance Correspondence Office [id number]#1 .00TIFF Normal [facility] Insurance Correspondence Office [id number]#1 .00TIFF Normal [facility] Insurance Correspondence Off 06-10-2023 Insurance Correspondence Office [id number]# 1.00TIFF Normal [facility] Delivery Summaryon Delivery Summary DATE OF DELIVERY: 05/26/2023 The patient is a 23 year old, , Para III, II, white female at 38 weeks and 1/7 who presented to Labor and Delivery for labor. 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 Also complicated by history of section x2 as well as a vaginal after x1, desires vaginal after again. Also complicated by large for gestational age. She had artificial rupture of membranes, a gentle Pitocin augmentation which allowed her to make gradual progress through the latent phase of labor into the active phase of labor. She reached complete and complete and pushed through the second stage of labor spontaneously delivering an 8 pound 7 ounce female with Apgars of eight and nine. Nuchal cord was reduced x1. Placenta delivered spontaneously intact. Uterus contracted down well. No repair was necessary. The internal examination revealed an intact previous uterine scar. The patient had done well with the exception of a wet tap on the epidural and measures were taken to try to mitigate symptomatology post-delivery. Anesthesia was aware. Nakul Swartz Dictated: 05/29/2023 [id number] Transcribed: 05/29/2023 [facility] Comment on above: Result Comment: Elec tronically Signed By: Rhea LAZARO, You Greco\.br\Date and Time Signed: 05/30/23 09:05 EDT General Message Officeon General Message Office --- --- --- --- - -- --- --- --- --- [facility]: KASSIE CRAWFORD Sent: 05/30/23 02:30:49 AM EDT Subject: Discharge Summary Ready to View A summary regarding your recent visit is available in the Documents section of your health record. Normal [facility] Insurance Correspondence Off iceon 05-30-2023 Insurance Correspondence Office [id number]# 1.00CD:127 Normal [facility] Discharge Instructionson Discharge Instructions [id number]# 1.00CD:127 Normal [facility] Inpatient Clinical Summaryon 05-29-2023 Inpatient Clinical Summary [address] [address] Clinical Summary Person Information Name: KASSIE CRAWFORD [facility] Age: 23 Years : 2000 Sex: Female PCP: TUAN HAAS DO Marital Status: Single Phone: [phone] Race: White Ethnicity: Non- or Language: Belizean Visit Id: Visit Reason: Speciality: Acuity: 3 PP Enc Type: Inpatient Med Service: Obstetrics Arrival: 05/26/2023 06:15:36 Discharge: 05/29/2023 09:55:00 Dispo Type: Home ([facility]) Address: [address] [place] [id number] Provider Notes: Diagnosis: History of Problems Active History of (09/01/2022) Smoking Status: Never Smoker Functional Status: Sensory Deficits: History of Falls: Mobility Assistance Prior to Admission: Independent ADLs: Independent Current Level of Assistance for Self-Care/Mobility: Cognitive Status: Allergies No Known Allergies Laboratory or Other Results This Visit (last charted value for your 05/26/2023 visit) Hematology 05/27/2023 6:13 AM Hct: 27.5 % -- Normal range between ( 34.0 and 46.0 ) HGB: 9.3 gm/dL -- Normal range between ( 12.0 and 16.0 ) RBC: 3.7 E12/L -- Normal range between ( 4.3 and 5.9 ) RDW: 15.0 % -- Normal range between ( 10.9 and 14.2 ) MCH: 25.0 pg -- Normal range between ( 27.0 and 34.0 ) MCHC: 33.7 gm/dL -- Normal range between ( 31.4 and 36.0 ) MCV: 74.2 fL -- Normal range between ( 80.0 and 100.0 ) MPV: 8.8 fL -- Normal range between ( 6.4 and 10.8 ) Platelet: 213.0 E9/L -- Normal range between ( 150.0 and 500.0 ) WBC: 9.0 E9/L -- Normal range between ( 4.0 and 11.0 ) Urinalysis 05/26/2023 11:15 AM UA Bacteria: Trace /HPF UA Bili: Negative UA Color: Yellow UA Glucose: Negative UA Ketones: Trace UA Leuk Est: Negative UA Mucous: Trace UA Nitrite: Negative UA Protein: 1+ UA RBC: 0-3 /HPF UA Squam Epithelial: 0-2 /HPF UA Urobilinogen: 0.2 EU/dL -- Normal range between ( 0.0 and 1.0 ) UA WBC: 0-5 /HPF UA Spec Desc: Catheter UA Blood: Negative UA Clarity: Clear UA pH: 7.0 -- Normal range between ( 5.0 and 9.0 ) UA Spec Grav: 1.015 -- Normal range between ( 1.005 and 1.030 ) Blood Bank 05/26/2023 7:01 AM ABO/Rh: O POS ABSC Gel Interp: Negative Measurements: Height: 170.18 cm Weight: 137.5 kg Blood Pressure: 131 mmHg / 86 mmHg BMI: 47.52 kg/m2 Procedures No Procedures Documented Immunizations diphtheria/pertussis, acel/tetanus adult (05/27/2023) Final Med List: ibuprofen (ibuprofen 600 mg Tab) 1 Tablets By Mouth every 6 hours. Refills: 0. multivitamin (Folinic-Plus oral tablet) multivitamin, ( Multivitamins) 1 Tablets By Mouth every day. omeprazole (omeprazole 20 mg Fiona) Care Team Members: Attending Physician: You Wilkerson MD Consulting Physician: Referring Physician: Follow up: With: Address: When: Dr. Wilkerson [phone] Within 6 weeks Comments: Call for any problems. Patient Education Information: Normal [facility] Inpatient Patient Summaryon 05-29-2023 Inpatient Patient Summary [id number] Patient Discharge Instructions PERSON INFORMATION Name: KASSIE CRAWFORD Date of : 2000 Current Date: 05/29/2023 09:58:35 PHYSICIANS Admitting Physician: You Wilkerson MD Primary Care Physician: TUAN HAAS DO PCP Comment: Discharge Diagnosis: History of Condition at Discharge: Stable KASSIE CRAWFORD has been given the following list of follow-up instructions, prescriptions, and patient education materials: PATIENT FOLLOW-UP INFORMATION Diet: Regular Activity: Expect mild pain, Expect minimal amount of drainage and/or bleeding, Activity as tolerated Wound Care Instructions: Remove Your Dressing IN: Days Call Your Doctor For: Persistent or heavy bleeding, Temperature above 101.5 degrees, Persistent vomiting IF UNABLE TO CONTACT YOUR PHYSICIAN AND YOU FEEL IT IS AN EMERGENCY, GO TO THE NEAREST EMERGENCY ROOM OR CALL 911 Home Treatment: Devices/Equipment: Special Services: Additional Instructions: Physician to provide the following pending test results: None Follow up: With: Address: When: Dr. Wilkerson [phone] Within 6 weeks Comments: Call for any problems. In the event that this physician does not participate in your insurance network, please consult with your insurance company to find a nearby participating provider. Comment: YVETTE Wan ABAGAIL M, have received the attached patient education materials/instruction s and have verbalized understanding. Patient Signature Date Clinican/Nurse Signature Date MEDICATION LIST New Medications [id number], [address], [place] [id number], [phone] ibuprofen (ibuprofen 600 mg Tab) 1 Tablets By Mouth every 6 hours. Refills: 0. Last Dose: ____Next Dose: ____ Medications to Continue with No Changes Other Medications multivitamin (Folinic-Plus oral tablet) Last Dose: ____Next Dose: ____ multivitamin, ( Multivitamins) 1 Tablets By Mouth every day. Last Dose: ____Next Dose: ____ omeprazole (omeprazole 20 mg Cap-DR) Last Dose: ____Next Dose: ____ Pharmacy Information: [facility] PATIENT EDUCATION INFORMATION Instructions: Medication Leaflets: You may receive a survey from [employer] asking you to rate your care experience. Your feedback is important and will help us understand what we do well and how we can improve the quality of care we provide to you, your loved ones and our community. It?s an honor to serve you. Thank you for choosing [facility] Normal [facility] Progress Note-Physicianon Progress Note-Physician Patient: KASSIE OLIVARES Age: 23 years Sex: Female : 2000 Associated Diagnoses: None Author: You Wilkerson MD Chief Complaint patient without major complaints Physical Examination Vital Signs 05/28/2023 19:30 EDT Temperature Oral 37.1 DegC Heart Rate Monitored 93 bpm Systolic Blood Pressure 140 mmHg HI Diastolic Blood Pressure 82 mmHg Breast: No mass, No tenderness. Exam: Uterus: Symmetric, firm and below the umbillicus, firm and below the umbillicus, normal lochia, normal lochia. Musculoskeletal extremities nontender. extremities nontender. Impression and Plan Plan Routine care. Course: Progressing as expected. pt has minimal REN this am will discharge [facility] Comment on above: Result Comment: Elec tronically Signed By: You Wilkerson MD\.br\Date and Time Signed: 05/29/23 07:30 EDT Consent for Treatmenton 05-03 Consent for Treatment [id number]#1 .00CD:127 Normal [facility] Insurance Correspondence Off iceon 05-28-2023 Insurance Correspondence Office [id number]#1. 00CD:127 Normal [facility] Progress Note-Physicianon Operative Report Patient: KASSIE CRAWFORD Age: 23 years Sex: Female : 2000 Associated Diagnoses: None Author: Pacheco Min Jr., DO Postoperative Information Date/ Time: 05/28/2023 08:40:00 Preoperative Diagnosis: Post-dural puncture headache.. Postoperative Diagnosis: Post-dural puncture headache.. Procedure: Epidural blood patch. Anesthesia Method: Local, Monitored anesthesia care. Performed by: Pacheco Min Jr., DO. Complications: None. Notes: The patient was interviewed and examined prior to the planned operation. Therapies were discussed with the patient, including a description of the procedure, risks and benefits, as well as alternatives to the blood patch. The patients questions were addressed and the patient elected to proceed with the epidural blood patch. The patient was placed in the sitting position and monitored with continuous pulse oximetry, non-invasive blood pressure. The lumbar region was prepped with betadine solution and draped with a sterile plastic drape. Anatomic landmarks were palpated and identified including midline, iliac crests, and spinous prodesses. The skin and subcutaneous tissues were anesthetized with 3 cc of 1% lidocaine. A 17 gauge Tuohy needle was introduced into the interspinal space at the L2-L3 level under continuous pressure with a saline-filled glass syringe. The epidural space was encountered as demonstrated by a loss of resistance. A route service manager then james 20cc of the patient's blood with sterile technique from the patient's right antecubital region. The blood thus drawn was passed sterilely to ne and I subsequently injected 13 cc of the blood into the epidural space, at which time the patient reported a sensation of pressure in the low back. The needle was withdrawn and a bandage was placed over the operative site. The patient was encouraged to return to the supine position and received IV fluid. The patient tolerated the procedure well.. Corrected note type to operative report Normal [facility] Comment on above: Result Comment: Elec tronically Signed By: Pacheco Min Jr., DO\.br\Date and Time Signed: 05/28/23 09:10 EDT Progress Note-Physician Patient: KASSIE OLIVARES Age: 23 years Sex: Female : 2000 Associated Diagnoses: None Author: Pacheco Min Jr., DO Postoperative Information Date/ Time: 05/28/2023 08:40:00 Preoperative Diagnosis: Post-dural puncture headache.. Postoperative Diagnosis: Post-dural puncture headache.. Procedure: Epidural blood patch. Anesthesia Method: Local, Monitored anesthesia care. Performed by: Pacheco Min Jr., DO. Complications: None. Notes: The patient was interviewed and examined prior to the planned operation. Therapies were discussed with the patient, including a description of the procedure, risks and benefits, as well as alternatives to the blood patch. The patients questions were addressed and the patient elected to proceed with the epidural blood patch. The patient was placed in the sitting position and monitored with continuous pulse oximetry, non-invasive blood pressure. The lumbar region was prepped with betadine solution and draped with a sterile plastic drape. Anatomic landmarks were palpated and identified including midline, iliac crests, and spinous prodesses. The skin and subcutaneous tissues were anesthetized with 3 cc of 1% lidocaine. A 17 gauge Tuohy needle was introduced into the interspinal space at the L2-L3 level under continuous pressure with a saline-filled glass syringe. The epidural space was encountered as demonstrated by a loss of resistance. A route service manager then james 20cc of the patient's blood with sterile technique from the patient's right antecubital region. The blood thus drawn was passed sterilely to ne and I subsequently injected 13 cc of the blood into the epidural space, at which time the patient reported a sensation of pressure in the low back. The needle was withdrawn and a bandage was placed over the operative site. The patient was encouraged to return to the supine position and received IV fluid. The patient tolerated the procedure well.. Normal [facility] Comment on above: Result Comment: Elec tronically Signed By: Pacheco Min Jr., DO\.br\Date and Time Signed: 05/28/23 09:08 EDT Progress Note-Physician Patient: KASSIE OLIVARES Age: 23 years Sex: Female : 2000 Associated Diagnoses: None Author: Pacheco Min Jr., DO Postoperative Information Postoperative disposition: Postoperative disposition: Day 2. Optimetrix number: Optimetrix number [id number]. Anesthetic utilized: Regional: Epidural. Physical Examination Hemodynamically stable. Pain Assessment: Controlled. General: Awake, Alert, Appropriate. Respiratory: Adequate air exchange. Cardiovascular: Stable. Neurological: Normal sensory function. Assessment Anesthetic outcome No post-epidural complications noted.. Review / Management Condition: Stable, PDPHA improved.. Plan Transfer/Discharge: Stable for discharge from anesthetic standpoint.. Normal [facility] Comment on above: Result Comment: Elec tronically Signed By: Pacheco Min Jr., DO.br\Date and Time Signed: 05/28/23 07:18 EDT CBC w/Indiceson 05-27-2023 Erythrocyte distribution width (RBC) [Ratio] 15.0 % High 10.9-14.2 [facility] Comment on above: Performed By: #### 2 [id number] #### [facility] [address] [place] [address] Hematocrit (Bld) [Volume fraction] 27.5 % Low 34.0-46.0 [facility] Comment on above: Performed By: #### 2 [id number] #### [facility] [address] [place] [address] Hemoglobin (Bld) [Mass/Vol] 9.3 g/dL Low 12.0-16.0 [facility] Comment on above: Performed By: #### 2 [id number] #### [facility] [address] [place] [address] MCH (RBC) [Entitic mass] 25.0 pg Low 27.0-34.0 [facility] Comment on above: Performed By: #### 2 [id number] #### [facility] [address] [place] [address] MCHC (RBC) [Mass/Vol] 33.7 g/dL Normal 31.4-36.0 [facility] Comment on above: Performed By: #### 2 [id number] #### [facility] [address] [place] [address] MCV (RBC) [Entitic vol] 74.2 fL Low 80.0-100.0 [facility] Comment on above: Performed By: #### 2 [id number] #### [facility] [address] [place] [address] Platelet mean volume (Bld) [Entitic vol] 8.8 fL Normal 6.4-10.8 [facility] Comment on above: Performed By: #### 2 [id number] #### [facility] [address] [place] [address] Platelets (Bld) [#/Vol] 213.0 E9/L Normal 150.0-500.0 [facility] Comment on above: Performed By: #### 2 [id number] #### [facility] [address] [place] [address] RBC (Bld) [#/Vol] 3.7 E12/L Low 4.3-5.9 [facility] Comment on above: Performed By: #### 2 [id number] #### [facility] [address] [place] [address] WBC corrected for nucl RBC Auto (Bld) [#/Vol] 9.0 E9/L Normal 4.0-11.0 [facility] Comment on above: Performed By: #### 2 [id number] #### [facility] [address] [place] [address] HEMATOLOGYOrdered By: Malgorzata Steven on 05-27-2023 Erythrocyte distribution width (RBC) [Ratio] 15.0 % High 10.9 - 14.2 % [facility] Hematocrit (Bld) [Volume fraction] 27.5 % Low 34.0 - 46.0 % [facility] Hemoglobin (Bld) [Mass/Vol] 9.3 g/dL Low 12.0 - 16.0 gm/dL [facility] MCH (RBC) [Entitic mass] 25.0 pg Low 27.0 - 34.0 pg [facility] MCHC (RBC) [Mass/Vol] 33.7 g/dL Normal 31.4 - 36.0 gm/dL [facility] MCV (RBC) [Entitic vol] 74.2 fL Low 80.0 - 100.0 fL [facility] Platelet mean volume (Bld) [Entitic vol] 8.8 fL Normal 6.4 - 10.8 fL [facility] Platelets (Bld) [#/Vol] 213.0 E9/L Normal 150. 0 - 500.0 E9/L [facility] RBC (Bld) [#/Vol] 3.7 E12/L Low 4.3 - 5.9 E12/L [facility] WBC corrected for nucl RBC Auto (Bld) [#/Vol] 9.0 E9/L Normal 4.0 - 11.0 E9/L [facility] Progress Note-Physicianon Progress Note-Physician Patient: KASSIE OLIVARES Age: 23 years Sex: Female : 2000 Associated Diagnoses: None Author: You Wilkerson MD Chief Complaint patient without major complaints Physical Examination VS/Measurements Breast: No mass, No tenderness. Exam: Uterus: Symmetric, firm and below the umbillicus, firm and below the umbillicus, normal lochia, normal lochia. Musculoskeletal extremities nontender. extremities nontender. Impression and Plan Plan Routine care. Course: Progressing as expected. some c/o REN consistent with spinal REN anesthesia aware and managing Normal [facility] Comment on above: Result Comment: Elec tronically Signed By: Rhea LAZARO, You Greco\.br\Date and Time Signed: 05/27/23 08:20 EDT Vaccinationson 05-27-2023 Vaccinations [id number]# 1.00CD:127 Normal [facility] ABO/Rhon 05-26-2023 ABO/Rh Positive Invalid Interpretation Code [facility] Comment on above: Performed By: #### 1 [id number], [id number], [id number], [id number] ####[facility] [address] [place] [address] ABO/Rh History Checkon 05-26 ABO/Rh History Check Verified Hx Blood Type Normal [facility] Comment on above: Performed By: #### 1 [id number], [id number], [id number], [id number] ####[facility] [address] [place] [address] ABSCon 05-26-2023 ABSC Gel Interp Negative Normal [facility] Comment on above: Performed By: #### 1 [id number], [id number], [id number], [id number] ####[facility] [address] [place] [address] BLOOD BANKOrdered By: Raegan Esqueda on 05-26-2023 ABO/Rh Interp Positive Invalid Interpretation Code [facility] BB Subsection ABSC Gel Interp Negative (05/26/23 7:01 AM) Normal [facility] BB Subsection Blood Bank ID#on 05-26-2023 BBID# [id number] Invalid Interpretation Code [facility] Comment on above: Performed By: #### 1 [id number], [id number], [id number], [id number] ####[facility] [address] [place] [address] CBC w/Indiceson 05-26-2023 Erythrocyte distribution width (RBC) [Ratio] 15.6 % High 10.9-14.2 [facility] Comment on above: Performed By: #### 1 [id number], [id number] #### [facility] [address] [place] [address] Hematocrit (Bld) [Volume fraction] 31.1 % Low 34.0-46.0 [facility] Comment on above: Performed By: #### 1 [id number], [id number] #### [facility] [address] [place] [address] Hemoglobin (Bld) [Mass/Vol] 10.3 g/dL Low 12.0-16.0 [facility] Comment on above: Performed By: #### 1 [id number], [id number] #### [facility] [address] [place] [address] MCH (RBC) [Entitic mass] 24.5 pg Low 27.0-34.0 [facility] Comment on above: Performed By: #### 1 [id number], [id number] #### [facility] [address] [place] [address] MCHC (RBC) [Mass/Vol] 33.2 g/dL Normal 31.4-36.0 [facility] Comment on above: Performed By: #### 1 [id number], [id number] #### [facility] [address] [place] [address] MCV (RBC) [Entitic vol] 74.0 fL Low 80.0-100.0 [facility] Comment on above: Performed By: #### 1 [id number], [id number] #### [facility] [address] [place] [address] Platelet mean volume (Bld) [Entitic vol] 8.4 fL Normal 6.4-10.8 [facility] Comment on above: Performed By: #### 1 [id number], [id number] #### [facility] [address] [place] [address] Platelets (Bld) [#/Vol] 243.0 E9/L Normal 150.0-500.0 [facility] Comment on above: Performed By: #### 1 [id number], [id number] #### [facility] [address] [place] [address] RBC (Bld) [#/Vol] 4.2 E12/L Low 4.3-5.9 [facility] Comment on above: Performed By: #### 1 [id number], [id number] #### [facility] [address] [place] [address] WBC corrected for nucl RBC Auto (Bld) [#/Vol] 10.3 E9/L Normal 4.0-11.0 [facility] Comment on above: Performed By: #### 1 [id number], [id number] #### [facility] [address] [place] [address] Consent for Procedure/Surger yon 05-26-2023 Consent for Procedure/Surgery .100.216526 [id number] #1.00CD:127 Normal [facility] Consent for Procedure/Surgery .100.263416 [id number] #1.00CD:127 Normal [facility] Consent for Procedure/Surgery .100.411660 [id number] #1.00CD:127 Normal [facility] Consent for Treatmenton 05-03 Consent for Treatment . 090 [id number]# 1.00CD:127 Normal [facility] Consent for Treatment .95 090 [id number]# 1.00CD:127 Normal [facility] Discharge Instructionson Discharge Instructions [id number] #1.00CD:127 Normal [facility] HEMATOLOGYOrdered By: Malgorzata Steven on 05-26-2023 Erythrocyte distribution width (RBC) [Ratio] 15.6 % High 10.9 - 14.2 % [facility] HemeAutoSS Hematocrit (Bld) [Volume fraction] 31.1 % Low 34.0 - 46.0 % [facility]AutoSS Hemoglobin (Bld) [Mass/Vol] 10.3 g/dL Low 12.0 - 16.0 gm/dL [facility]Auto[facility] MCH (RBC) [Entitic mass] 24.5 pg Low 27.0 - 34.0 pg [facility]AutoSS MCHC (RBC) [Mass/Vol] 33.2 g/dL Normal 31.4 - 36.0 gm/dL [facility]AutoSS MCV (RBC) [Entitic vol] 74.0 fL Low 80.0 - 100.0 fL [facility] Platelet mean volume (Bld) [Entitic vol] 8.4 fL Normal 6.4 - 10.8 fL [facility]Auto[facility] Platelets (Bld) [#/Vol] 243.0 E9/L Normal 150. 0 - 500.0 E9/L [facility] RBC (Bld) [#/Vol] 4.2 E12/L Low 4.3 - 5.9 E12/L [facility]Auto[facility] WBC corrected for nucl RBC Auto (Bld) [#/Vol] 10.3 E9/L Normal 4.0 - 11.0 E9/L [facility]eAutoSS Help Me Grow Referralon 05-03 Help Me Grow Referral [id number] #1.00CD:127 Normal [facility] Insurance Correspondence Off iceon 05-26-2023 Insurance Correspondence Office .[id number]# 1.00CD:127 Normal [facility] Recordson Records [id number] #1.00CD:127 Normal [facility] Progress Note-Physicianon Progress Note-Physician Patient: KASSIE OLIVARES Age: 23 years Sex: Female : 2000 Associated Diagnoses: None Author: Pacheco Min Jr., DO Chief Complaint Intrauterine Health Status Allergies: Allergic Reactions (All) No Known Allergies Current medications.Problem list: All Problems Acid reflux / SNOMED CT 5855660458 / Confirmed Age mother conceived under 17 / Patient Care / Confirmed History of / SNOMED CT 634752269 / Confirmed / SNOMED CT 547631884 / Confirmed Resolved: Arthritis / SNOMED CT 5369158 Resolved: / SNOMED CT 180090491 Resolved: / SNOMED CT 696612784 Resolved: / SNOMED CT 331434232 Resolved: / SNOMED CT 376247772 Resolved: / SNOMED CT 845235561 Resolved: Yeast / SNOMED CT 694258830 Review of Systems Respiratory: Negative. Cardiovascular: Negative. Hematology/Lymphatics : No bruising tendency, No bleeding tendency. Neurologic: Negative. Physical Examination Please refer to Labor floor nursing records for ongoing vital signs, and for intake and output totals while epidural was running. Review / Management Differential diagnosis: Active labor. OB Results Review Labor 05/26/2023 7:01 EDT WBC 10.3 E9/L RBC 4.2 E12/L LOW HGB 10.3 gm/dL LOW Hct 31.1 % LOW MCV 74.0 fL LOW MCH 24.5 pg LOW MCHC 33.2 gm/dL RDW 15.6 % HI Platelet 243.0 E9/L MPV 8.4 fL ABO/Rh O POS ABSC Gel Interp Negative Impression and Plan Plan Labor epidural at request of patient.. Procedure Epidural injection procedure Date/ Time: 05/26/2023 09:59:00. Confirmed: patient, procedure, site, safety procedures followed. Performed by: Pacheco Min DO. Informed consent: signed by patient. Indication: Active labor.. Preparation and technique: informed consent obtained (from patient before the procedure), positioned (sitting), sterile preparation of site (patient's back was sterilly prepped and draped) (in usual fashion, with 10 % povidone iodine, draped to expose affected area), local anesthesia (1% lidocaine was applied to the patient's back before the epidural was attempted) (lidocaine without epinephrine, 3 cc injected subcutaneously), approach (midline), needle (17 ga touhy) (placed via loss of resistance technique, At _L4-L5_ interspace.), aspiration (cerebral spinal fluid, not blood), injectant (test dose consisting of 3 ml of 1.5% lodocaine with 1:200,000 epi) (test dose given, Epidural catheter inserted and secured at a depth of 12 cm at skin.). Procedure tolerated: fairly. Complications: paresthesia, Negative heme, CSF return noted, and response to test dose: rapid onset of weakness, drop in blood pressure.. Patient BP responded well to ephedrine dosing. Additional fluids ordered. Assuming intrathecal catheter.. Professional Services Epidural Medications Administered: Bolus dose consisted of 100 mcg of fentanyl (2 ml) at 1015. Awaiting return of patient sensation prior to starting epidural infusion. Nursing instructed to leave catheter in position for at least 24 hours before removal. Normal [facility] Comment on above: Result Comment: Elec tronically Signed By: Pacheco Min Jr., DO\.avril\Date and Time Signed: 05/26/23 10:38 EDT UA With Cult Reflexon 2022 Bacteria LM Ql (Urine sed) TRACE Normal Trace [facility] Comment on above: Order Comment: Urina ry Catheter Insertion triggered Urinalysis With Culture Reflex order by abundio. Performed By: #### 1 [id number] #### [facility] [address] [place] [address] Bilirubin Ql (U) Negative Normal Negative [facility] Comment on above: Order Comment: Urina ry Catheter Insertion triggered Urinalysis With Culture Reflex order by abundio. Performed By: #### 1 [id number] #### [facility] [address] [place] [address] Clarity (U) CLEAR Normal Clear [facility] Comment on above: Order Comment: Urina ry Catheter Insertion triggered Urinalysis With Culture Reflex order by abundio. Performed By: #### 1 [id number] #### [facility] [address] [place] [address] Color (U) Yellow Invalid Interpretation Code [facility] Comment on above: Order Comment: Urina ry Catheter Insertion triggered Urinalysis With Culture Reflex order by discern. Performed By: #### 1 [id number] #### [facility] [address] [place] [address] Epithelial cells.squamous LM.HPF (Urine sed) [#/Area] 0-2 Normal 0-2 [facility] Comment on above: Order Comment: Urina ry Catheter Insertion triggered Urinalysis With Culture Reflex order by discern. Performed By: #### 1 [id number] #### [facility] [address] [place] [address] Glucose Test strip (U) [Mass/Vol] Negative Normal Negative [facility] Comment on above: Order Comment: Urina ry Catheter Insertion triggered Urinalysis With Culture Reflex order by discern. Performed By: #### 1 [id number] #### [facility] [address] [place] [address] Hemoglobin Ql (U) Negative Normal Negative [facility] Comment on above: Order Comment: Urina ry Catheter Insertion triggered Urinalysis With Culture Reflex order by discern. Performed By: #### 1 [id number] #### [facility] [address] [place] [address] Ketones (U) [Mass/Vol] TRACE Invalid Interpretation Code Negative [facility] Comment on above: Order Comment: Urina ry Catheter Insertion triggered Urinalysis With Culture Reflex order by discern. Performed By: #### 1 [id number] #### [facility] [address] [place] [address] [place].plasma/[place]. RBC (Bld) [Mass ratio] 0-3 Normal 0-3 [facility] Comment on above: Order Comment: Urina ry Catheter Insertion triggered Urinalysis With Culture Reflex order by discern. Performed By: #### 1 [id number] #### [facility] [address] [place] [address] Mucus Ql (Urine sed) TRACE Normal [facility] Comment on above: Order Comment: Urina ry Catheter Insertion triggered Urinalysis With Culture Reflex order by discern. Performed By: #### 1 [id number] #### [facility] [address] [place] [address] Nitrite Ql (U) Negative Normal Negative [facility] Comment on above: Order Comment: Urina ry Catheter Insertion triggered Urinalysis With Culture Reflex order by discern. Performed By: #### 1 [id number] #### [facility] [address] [place] [address] pH (U) 7.0 [pH] Invalid Interpretation Code 5.0-9.0 [facility] Comment on above: Order Comment: Urina ry Catheter Insertion triggered Urinalysis With Culture Reflex order by discern. Performed By: #### 1 [id number] #### [facility] [address] [place] [address] Protein (U) [Mass/Vol] 1+ Abnormal Negative [facility] Comment on above: Order Comment: Urina ry Catheter Insertion triggered Urinalysis With Culture Reflex order by discern. Performed By: #### 1 [id number] #### [facility] [address] [place] [address] Specific gravity (U) [Rel density] 1.015 Invalid Interpretation Code 1.005-1.030 [facility] Comment on above: Order Comment: Urina ry Catheter Insertion triggered Urinalysis With Culture Reflex order by discern. Performed By: #### 1 [id number] #### [facility] [address] [place] [address] Type of Urine collection method Catheter Normal [facility] Comment on above: Order Comment: Urina ry Catheter Insertion triggered Urinalysis With Culture Reflex order by discern. Performed By: #### 1 [id number] #### [facility] [address] [place] [address] Urobilinogen Qn (U) 0.2 {Enedelia'U}/dL Normal 0.0-1.0 [facility] Comment on above: Order Comment: Urina ry Catheter Insertion triggered Urinalysis With Culture Reflex order by discern. Performed By: #### 1 [id number] #### [facility] [address] [place] [address] WBC Auto Ql (U) Negative Normal Negative [facility] Comment on above: Order Comment: Urina ry Catheter Insertion triggered Urinalysis With Culture Reflex order by discern. Performed By: #### 1 [id number] #### [facility] [address] [place] [address] WBC LM.HPF (Urine sed) [#/Area] 0-5 Normal 0-5 [facility] Comment on above: Order Comment: Urina ry Catheter Insertion triggered Urinalysis With Culture Reflex order by discern. Performed By: #### 1 [id number] #### [facility] [address] [place] [address] URINALYSISOrdered By: Phoebe Peng on 05-26-2023 Bacteria LM Ql (Urine sed) Trace /HPF Normal Trace/HPF [facility] UA Auto SS Bilirubin Ql (U) Negative (05/26/23 11:15 AM) Normal Negative [facility] UA Auto SS Clarity (U) Clear (05/26/23 11:15 AM) Normal Clear [facility] UA Auto SS Color (U) Yellow Invalid Interpretation Code [facility] UA Auto SS Epithelial cells.squamous LM.HPF (Urine sed) [#/Area] 0-2 /HPF Normal 0-2/HPF [facility] UA Aut o SS Glucose Test strip (U) [Mass/Vol] Negative (05/26/23 11:15 AM) Normal Negative [facility] UA Auto SS Hemoglobin Ql (U) Negative (05/26/23 11:15 AM) Normal Negative [facility] UA Auto SS Ketones (U) [Mass/Vol] Trace *NA* (05/26/23 11:15 AM) Invalid Interpretation Code Negative [facility] UA Auto SS [place].plasma/[place]. RBC (Bld) [Mass ratio] 0-3 /HPF Normal 0-3/HPF [facility]A A uto SS Mucus Ql (Urine sed) Trace (05/26/23 11:15 AM) Normal [facility] UA Auto SS Nitrite Ql (U) Negative (05/26/23 11:15 AM) Normal Negative [facility] UA Auto SS pH (U) 7.0 *NA* (05/26/23 11:15 AM) Invalid Interpretation Code 5.0 - 9.0 [facility] UA Auto SS Protein (U) [Mass/Vol] 1+ *ABN* (05/26/23 11:15 AM) Invalid Interpretation Code Negative [facility] UA Auto SS Specific gravity (U) [Rel density] 1.015 *NA* (05/26/23 11:15 AM) Invalid Interpretation Code 1.005 - 1.030 [facility] UA Auto SS UA Spec Desc Catheter (05/26/23 11:15 AM) Normal [facility] UA Auto SS Urobilinogen Qn (U) 0.6417461 {Enedelia'U}/dL Normal 0.0 - 1.0 EU/dL FT UA Auto SS WBC Auto Ql (U) Negative (05/26/23 11:15 AM) Normal Negative [facility] UA Auto SS WBC LM.HPF (Urine sed) [#/Area] 0-5 /HPF Normal 0-5/HPF [facility] UA Auto SS Nursing Assessmenton 023 Nursing Assessment [id number]# 1.00CD:127 Normal [facility] Consent for Treatmenton 05-02 Consent for Treatment [id number]#1 .00CD:127 Normal [facility] Discharge Instructionson Discharge Instructions [id number]#1 .00CD:127 Normal [facility] Inpatient Clinical Summaryon 05-18-2023 Inpatient Clinical Summary [address] [address] Clinical Summary Person Information Name: KASSIE CRAWFORD [place] Age: 23 Years : 2000 Sex: Female PCP: TUAN HAAS DO Marital Status: Single Phone: [phone] Race: White Ethnicity: Non- or Language: Belizean Visit Id: Visit Reason: DECREASED MOVEMENT Speciality: Acuity: Obs Enc Type: OB Triage Med Service: Obstetrics Arrival: 05/18/2023 19:33:48 Discharge: 05/18/2023 20:34:00 Dispo Type: Home (Routine DC) Address: [place] [id number] Provider Notes: Diagnosis: Problems Active History of (09/01/2022) Smoking Status: Never Smoker Functional Status: Sensory Deficits: History of Falls: Mobility Assistance Prior to Admission: ADLs: Current Level of Assistance for Self-Care/Mobility: Cognitive Status: Allergies No Known Allergies Laboratory or Other Results This Visit (last charted value for your 05/18/2023 visit) No Laboratory or Other Results This Visit Measurements: Height: Weight: 135 kg Blood Pressure: 115 mmHg / 69 mmHg BMI: Procedures No Procedures Documented Immunizations No Immunizations Documented This Visit Final Med List: multivitamin (Folinic-Plus oral tablet) multivitamin, ( Multivitamins) 1 Tablets By Mouth every day. omeprazole (omeprazole 20 mg Cap-DR) Care Team Members: Attending Physician: You Wilkerson MD Consulting Physician: Referring Physician: Follow up: With: Address: When: You Wilkerson [address] [place], [place] [id number] Business (1) In 1 day 05/19/2023 Comments: Call for any problems. Call physician for heavy vaginal bleeding Return for contractions closer, longer, harder Return for decreased movement Return if ruptured membranes or vaginal bleeding Patient Education Information: Normal [facility] Inpatient Patient Summaryon 05-18-2023 Inpatient Patient Summary [address] [address] Patient Discharge Instructions PERSON INFORMATION Name: KASSIE CRAWFORD Date of : 2000 Current Date: 05/18/2023 20:44:51 PHYSICIANS Admitting Physician: You Wilkerson MD Primary Care Physician: TUAN HAAS DO PCP Comment: Discharge Diagnosis: Condition at Discharge: YVETTEHITESHIL Rene has been given the following list of follow-up instructions, prescriptions, and patient education materials: PATIENT FOLLOW-UP INFORMATION Diet: Activity: Wound Care Instructions: Remove Your Dressing IN: Days Call Your Doctor For: IF UNABLE TO CONTACT YOUR PHYSICIAN AND YOU FEEL IT IS AN EMERGENCY, GO TO THE NEAREST EMERGENCY ROOM OR CALL 911 Home Treatment: Devices/Equipment: Special Services: Additional Instructions: Physician to provide the following pending test results: Follow up: With: Address: When: You Wilkerson [address], [place] [address], [place] [address] Business (1) In day 05/19/2023 Comments: Call for any problems. Call physician for heavy vaginal bleeding Return for contractions closer, longer, harder Return for decreased movement Return if ruptured membranes or vaginal bleeding In the event that this physician does not participate in your insurance network, please consult with your insurance company to find a nearby participating provider. Comment: YVETTE Wan ABAGAIL M, have received the attached patient education materials/instruction s and have verbalized understanding. Patient Signature Date Clinican/Nurse Signature Date MEDICATION LIST Medications to Continue with No Changes Other Medications multivitamin (Folinic-Plus oral tablet) Last Dose: ____Next Dose: ____ multivitamin, ( Multivitamins) 1 Tablets By Mouth every day. Last Dose: ____Next Dose: ____ omeprazole (omeprazole 20 mg Cap-DR) Last Dose: ____Next Dose: ____ [facility] Information[facility] PATIENT EDUCATION INFORMATION Instructions: Medication Leaflets: You may receive a survey from [employer] asking you to rate your care experience. Your feedback is important and will help us understand what we do well and how we can improve the quality of care we provide to you, your loved ones and our community. It?s an honor to serve you. Thank you for choosing [facility] Normal [facility] Insurance Correspondenceon 0 05-18-2023 Insurance Correspondence [id number]#1 .00CD:127 Normal [facility] Group B Strep by PCRon 05-14 Group B Strep colonization by PCR Positive Abnormal Negative [facility] Comment on above: Performed By: #### 4 [id number] ####[facility] [address] [place] [address] Physician Orderon 05-12-2023 Physician Order [id number]# 1.00CD:127 Normal [facility] Nursing Assessmenton 023 Nursing Assessment [id number]#1 .00CD:127 Normal [facility] Consent for Treatmenton Consent for Treatment [id number]#1 .00CD:127 Normal [facility] Discharge Instructionson Discharge Instructions [id number]# 1.00CD:127 Normal [facility] Inpatient Clinical Summaryon 05-02-2023 Inpatient Clinical Summary [address] [address] Clinical Summary Person Information Name: KASSIE CRAWFORD [place] Age: 22 Years : 2000 Sex: Female PCP: TUAN HAAS DO Marital Status: Single Phone: [phone] Race: White Ethnicity: Non- or Language: Belizean Visit Id: Visit Reason: uti Speciality: Acuity: Enc Type: OB Triage Med Service: Obstetrics Arrival: 05/02/2023 15:48:10 Discharge: 05/02/2023 16:55:00 Dispo Type: Home (Routine DC) Address: [address] [place] [id number] Provider Notes: Diagnosis: Problems Active History of (09/01/2022) Smoking Status: Never Smoker Functional Status: Sensory Deficits: History of Falls: Mobility Assistance Prior to Admission: ADLs: Current Level of Assistance for Self-Care/Mobility: Cognitive Status: Allergies No Known Allergies Laboratory or Other Results This Visit (last charted value for your 05/02/2023 visit) Urinalysis 05/02/2023 3:56 PM UA Bacteria: Trace /HPF UA Bili: Negative UA Color: Yellow UA Glucose: Negative UA Ketones: Trace UA Leuk Est: Negative UA Mucous: 1+ UA Nitrite: Negative UA Protein: Trace UA RBC: 0-3 /HPF UA Squam Epithelial: 3-4 /HPF UA Urobilinogen: 1.0 EU/dL -- Normal range between ( 0.0 and 1.0 ) UA WBC: 0-5 /HPF UA Spec Desc: Clean Catch UA Blood: Negative UA Clarity: Clear UA pH: 6.0 -- Normal range between ( 5.0 and 9.0 ) UA Spec Grav: >=1.030 -- Normal range between ( 1.005 and 1.030 ) Measurements: Height: 170 cm Weight: 136 kg Blood Pressure: 112 mmHg / 67 mmHg BMI: 47.06 kg/m2 Procedures No Procedures Documented Immunizations No Immunizations Documented This Visit Final Med List: multivitamin (Folinic-Plus oral tablet) multivitamin, ( Multivitamins) 1 Tablets By Mouth every day. omeprazole (omeprazole 20 mg Jaren-) Care Team Members: Attending Physician: Russel SPANN DO Consulting Physician: Referring Physician: Follow up: With: Address: When: You Payan [address] [address] [facility] (1) In 10 days 05/12/2023 Patient Education Information: and Urinary Tract Infection Normal [facility] Inpatient Patient Summaryon 05-02-2023 Inpatient Patient Summary [address] [address] Patient Discharge Instructions PERSON INFORMATION Name: KASSIE CRAWFORD Date of : 2000 Current Date: 05/02/2023 17:01:51 PHYSICIANS Admitting Physician: Russel SPANN DO Primary Care Physician: TUAN HAAS DO PCP Comment: Discharge Diagnosis: Condition at Discharge: KASSIE CRAWFORD has been given the following list of follow-up instructions, prescriptions, and patient education materials: PATIENT FOLLOW-UP INFORMATION Diet: Activity: Wound Care Instructions: Remove Your Dressing IN: Days Call Your Doctor For: IF UNABLE TO CONTACT YOUR PHYSICIAN AND YOU FEEL IT IS AN EMERGENCY, GO TO THE NEAREST EMERGENCY ROOM OR CALL 911 Home Treatment: Devices/Equipment: Special Services: Additional Instructions: Physician to provide the following pending test results: Follow up: With: Address: When: You [address], [facility] [address], [place] [address] [facility] (1) In 10 days 05/12/2023 In the event that this physician does not participate in your insurance network, please consult with your insurance company to find a nearby participating provider. Comment: YVETTE Wan ABAGAIL M, have received the attached patient education materials/instruction s and have verbalized understanding. Patient Signature Date Clinican/Nurse Signature Date MEDICATION LIST Medications to Continue with No Changes Other Medications multivitamin (Folinic-Plus oral tablet) Last Dose: ____Next Dose: ____ multivitamin, ( Multivitamins) 1 Tablets By Mouth every day. Last Dose: ____Next Dose: ____ omeprazole (omeprazole 20 mg Cap-DR) Last Dose: ____Next Dose: ____ [facility] Information: [facility] PATIENT EDUCATION INFORMATION Instructions: and Urinary Tract Infection A urinary tract infection (UTI) is an infection of any part of the urinary tract. This includes the kidneys, the tubes that connect the kidneys to the bladder (ureters), the bladder, and the tube that carries urine out of the body (urethra). These organs make, store, and get rid of urine in the body. Your health care provider may use other names to describe the infection. An upper UTI affects the ureters and kidneys (pyelonephritis). A lower UTI affects the bladder (cystitis) and urethra (urethritis). Most UTIs are caused by bacteria in the genital area, around the entrance to the urinary tract. These bacteria grow and cause irritation and inflammation of the urinary tract. You are more likely to develop a UTI during because: ? The physical and hormonal changes that your body goes through make it easier for bacteria to get into your urinary tract. ? Your growing baby puts pressure on your bladder and can affect urine flow. women with diabetes are at an increased risk for developing a UTI. It is important to recognize and treat UTIs in because they can cause serious complications for both you and your baby. How does this affect me? Symptoms of a UTI include: ? Needing to urinate right away (urgently) and often, even if urinating a small amount. ? Pain, burning, or having a hard time passing urine. ? Blood in the urine. ? Unusual, cloudy, and bad-smelling urine. ? Pain in the abdomen or lower back. ? Vaginal discharge. You may also have: ? Vomiting or a decreased appetite. ? Confusion. ? Irritability or tiredness. ? A fever. ? Diarrhea. ? A low level of red blood cells (anemia). ? The development of high blood pressure during (preeclampsia). How does this affect my baby? An untreated UTI during could lead to a kidney infection or an infection throughout the mother's body (systemic infection). This can cause health problems and affect the baby. Possible complications of an untreated UTI include: ? Your baby being born before 37 weeks of (premature). ? Your baby being born with a low weight. ? Your baby having a higher risk of having his or her skin or the white parts of the eyes turn yellow (jaundice). What can I do to lower my risk? To prevent a UTI: ? Do not hold urine for long periods of time. Empty your bladder as soon as you feel the urge. ? Always wipe from front to back, especially after a bowel movement. Use each tissue one time when you wipe. ? Empty your bladder after sex. ? Keep your genital area dry. ? Drink 6 to 8 glasses of water each day. ? Do not douche or use deodorant sprays. ? Wear cotton underwear and loose clothing. How is this treated? Treatment fo (more content not included)... Normal [facility] Insurance Correspondence Off ice05-02-2023 Insurance Correspondence Office [id number]# 1.00CD:127 Normal [facility] UA With Cult Reflexon 2022 Bacteria LM Ql (Urine sed) TRACE Normal Trace [facility] Comment on above: Performed By: #### 1 [id number] #### [facility] [address] [place] [address] Bilirubin Ql (U) Negative Normal Negative [facility] Comment on above: Performed By: #### 1 [id number] #### [facility] [address] [place] [address] Clarity (U) CLEAR Normal Clear [facility] Comment on above: Performed By: #### 1 [id number] #### [facility] [address] [place] [address] Color (U) YELLOW Normal Yellow [facility] Comment on above: Performed By: #### 1 [id number] #### [facility] [address] [place] [address] Epithelial cells.squamous LM.HPF (Urine sed) [#/Area] 3-4 Normal 0-2 [facility] Comment on above: Performed By: #### 1 [id number] #### [facility] [address] [place] [address] Glucose Test strip (U) [Mass/Vol] Negative Normal Negative [facility] Comment on above: Performed By: #### 1 [id number] #### [facility] [address] [place] [address] Hemoglobin Ql (U) Negative Normal Negative [facility] Comment on above: Performed By: #### 1 [id number] #### [facility] [address] [place] [address] Ketones (U) [Mass/Vol] TRACE Invalid Interpretation Code Negative [facility] Comment on above: Performed By: #### 1 [id number] #### [facility] [address] [place] [address] [place].plasma/[place]. RBC (Bld) [Mass ratio] 0-3 Normal 0-3 [facility] Comment on above: Performed By: #### 1 [id number] #### [facility] [address] [place] [address] Mucus Ql (Urine sed) 1+ Normal [facility] Comment on above: Performed By: #### 1 [id number] #### [facility] [address] [place] [address] Nitrite Ql (U) Negative Normal Negative [facility] Comment on above: Performed By: #### 1 [id number] #### [facility] [address] [place] [address] pH (U) 6.0 [pH] Invalid Interpretation Code 5.0-9.0 [facility] Comment on above: Performed By: #### 1 [id number] #### [facility] [address] [place] [address] Protein (U) [Mass/Vol] TRACE Abnormal Negative [facility] Comment on above: Performed By: #### 1 [id number] #### [facility] [address] [place] [address] Specific gravity (U) [Rel density] >=1.030 Invalid Interpretation Code 1.005-1.030 [facility] Comment on above: Performed By: #### 1 [id number] #### [facility] [address] [place] [address] Type of Urine collection method Clean Catch Normal [facility] Comment on above: Performed By: #### 1 [id number] #### [facility] [address] [place] [address] Urobilinogen Qn (U) 1.0 {Enedelia'U}/dL Normal 0.0-1.0 [facility] Comment on above: Performed By: #### 1 [id number] #### [facility] [address] [place] [address] WBC Auto Ql (U) Negative Normal Negative [facility] Comment on above: Performed By: #### 1 [id number] #### [facility] [address] [place] [address] WBC LM.HPF (Urine sed) [#/Area] 0-5 Normal 0-5 [facility] Comment on above: Performed By: #### 1 [id number] #### [facility] [address] [place] [address] URINALYSISOrdered By: Phoebe Peng on 05-02-2023 Bacteria LM Ql (Urine sed) Trace /HPF Normal Trace/HPF [facility] UA Auto SS Bilirubin Ql (U) Negative (05/02/23 3:56 PM) Normal Negative [facility] UA Auto SS Clarity (U) Clear (05/02/23 3:56 PM) Normal Clear [facility] UA Auto SS Color (U) Yellow (05/02/23 3:56 PM) Normal Yellow [facility] UA Auto SS Epithelial cells.squamous LM.HPF (Urine sed) [#/Area] 3-4 /HPF Normal 0-2/HPF [facility] UA Aut o SS Glucose Test strip (U) [Mass/Vol] Negative (05/02/23 3:56 PM) Normal Negative [facility] UA Auto SS Hemoglobin Ql (U) Negative (05/02/23 3:56 PM) Normal Negative [facility] UA Auto SS Ketones (U) [Mass/Vol] Trace *NA* (05/02/23 3:56 PM) Invalid Interpretation Code Negative [facility] UA Auto SS [place].plasma/[place]. RBC (Bld) [Mass ratio] 0-3 /HPF Normal 0-3/HPF [facility] UA A uto SS Mucus Ql (Urine sed) 1+ (05/02/23 3:56 PM) Normal [facility] UA Auto SS Nitrite Ql (U) Negative (05/02/23 3:56 PM) Normal Negative [facility] UA Auto SS pH (U) 6.0 *NA* (05/02/23 3:56 PM) Invalid Interpretation Code 5.0 - 9.0 [facility] UA Auto SS Protein (U) [Mass/Vol] Trace *ABN* (05/02/23 3:56 PM) Invalid Interpretation Code Negative [facility] UA Auto SS Specific gravity (U) [Rel density] >=1.030 *NA* (05/02/23 3:56 PM) Invalid Interpretation Code 1.005 - 1.030 [facility] UA Auto SS UA Spec Desc Clean Catch (05/02/23 3:56 PM) Normal [facility] UA Auto SS Urobilinogen Qn (U) 1.3341855 {Enedelia'U}/dL Normal 0.0 - 1.0 EU/dL [facility] UA Auto SS WBC Auto Ql (U) Negative (05/02/23 3:56 PM) Normal Negative [facility] UA Auto SS WBC LM.HPF (Urine sed) [#/Area] 0-5 /HPF Normal 0-5/HPF [facility] UA Auto SS RPR with Conf Rfxon 03-15-20 Reagin Ab RPR Ql (S) Non-Reactive Invalid Interpretation Code Non Reactive [facility] Comment on above: Result Comment: Perf ormed at: [facility] [address] [id number] PhD Jyoti Hurst Performed By: #### 3 [id number] ####[facility] [address] [place] [address] CHEMISTRYOrdered By: SYSTEM SYSTEM on 03-14-2023 Glucose 1 Hr post 50 g glucose PO [Mass/Vol] 102 mg/dL Normal 55 - 140 mg/dL [facility] Remisol Consent for Treatmenton 03-01 Consent for Treatment [id number] .[id number]:127 Normal [facility] Gest Scr Glu 1 Hron 03-14-20 Glucose [Mass/Vol] 102 mg/dL Normal 55-140 [facility] Comment on above: Result Comment: Posi tive Screen =1 HR > 140mg/dL Performed By: #### 3 [id number] ####[facility] [address] [place] [address] HEMATOLOGYOrdered By: Steph William on 03-14-2023 Hematocrit (Bld) [Volume fraction] 31.2 % Low 34.0 - 46.0 % [facility] HemeAutoSS Hemoglobin (Bld) [Mass/Vol] 10.5 g/dL Low 12.0 - 16.0 gm/dL [facility] HemeAutoSS Hct & Hgbon 03-14-2023 Hematocrit (Bld) [Volume fraction] 31.2 % Low 34.0-46.0 [facility] Comment on above: Performed By: #### 3 [id number] ####[facility] [address] [place] [address] Hemoglobin (Bld) [Mass/Vol] 10.5 g/dL Low 12.0-16.0 [facility] Comment on above: Performed By: #### 3 [id number], [id number], [id number] ####[facility] [address] [place] [address] Physician Orderon 03-14-2023 Physician Order [id number] .[id number]:127 Normal [facility] CHEMISTRYOrdered By: SYSTEM SYSTEM on 10-02-2022 HCG.beta subunit Qn 435 m[IU]/mL High 1 - 3 mIU/mL [facility] Remisol CHEMISTRYOrdered By: SYSTEM SYSTEM on 09-30-2022 HCG.beta subunit Qn 218 m[IU]/mL High 1 - 3 mIU/mL [facility] Remisol Progesterone [Mass/Vol] 7.90 ng/mL Invalid Interpretation Code [facility] Remisol HEMATOLOGYOrdered By: Steph William on 09-30-2022 Erythrocyte distribution width (RBC) [Ratio] 15.4 % High 10.9 - 14.2 % [facility] HemeAutoSS Hematocrit (Bld) [Volume fraction] 34.9 % Normal 34.0 - 46.0 % [facility] HemeAutoSS Hemoglobin (Bld) [Mass/Vol] 11.5 g/dL Low 12.0 - 16.0 gm/dL [facility] HemeAutoSS MCH (RBC) [Entitic mass] 25.1 pg Low 27.0 - 34.0 pg [facility] HemeAutoSS MCHC (RBC) [Mass/Vol] 32.9 g/dL Normal 31.4 - 36.0 gm/dL [facility] HemeAutoSS MCV (RBC) [Entitic vol] 76.3 fL Low 80.0 - 100.0 fL [facility] HemeAutoSS Platelet mean volume (Bld) [Entitic vol] 8.1 fL Normal 6.4 - 10.8 fL [facility] HemeAutoSS Platelets (Bld) [#/Vol] 316.0 E9/L Normal 150. 0 - 500.0 E9/L [facility] HemeAutoSS RBC (Bld) [#/Vol] 4.6 E12/L Normal 4.3 - 5.9 E12/L [facility] HemeAutoSS WBC corrected for nucl RBC Auto (Bld) [#/Vol] 8.5 E9/L Normal 4.0 - 11.0 E9/L [facility] HemeAutoSS A1C with Estimated Average G jigar 09-16-2022 HbA1c (Bld) [Mass fraction] 5.800 % High 4.3-5.6 % [employer] Other HbA1c (Bld) [Mass fraction] 120 mg/dL [employer] [facility] [employer] Other Albumin [Mass/volume] in Ser um or PlasmaOrdered By: Tuan Haas on 09-16-2022 Albumin [Mass/Vol] 4.0 g/dL 3.2-5.5 [facility] Basophils Auto (Bld) [#/Vol] Ordered By: Tuan Haas on 09-16-2022 Basophils (Bld) [#/Vol] 0.1 10*3/uL 0.0-0.2 [facility] Basophils/100 WBC Auto (Bld) Ordered By: Tuan Haas on 09-16-2022 Basophils/100 WBC (Bld) 0.9 % . F [facility] C reactive protein [Mass/vol ume] in Serum or PlasmaOrdered By: Tuan Haas on 09-16-2022 CRP [Mass/Vol] 0.7 mg/dL 0.0-1.0 [facility] C-Reactive Proteinon 023 C-Reactive Protein 0.7 mg/dL Normal 0.0-1.0 mg/dL [facility] [employer] Other CT biopsyOrdered By: Tuan hernandez on 09-16-2022 Transferrin [Mass/Vol] 362 mg/dL 180-[address] [facility] Cholesterol [Mass/volume] in Serum or PlasmaOrdered By: Tuan Haas on 09-16-2022 Cholesterol [Mass/Vol] 157 mg/dL Normal 140-2 00 mg/dL [facility] Comment on above: Chol less than 200 m g/dl low riskChol 201-239 mg/dl borderline riskChol 240 mg/dl and greater high risk Cholesterol in LDL Calc [Mas s/Vol]Ordered By: Tuan Haas on 09-16-2022 Cholesterol in LDL [Mass/Vol] 96 mg/dL 0-100 [facility] Comment on above: LDL ATP III CLASSIFI CATIONLDL less than 100 mg/dL OptimalLDL 100-129 mg/dL Near or above optimalLDL 130-159 mg/dL Borderline highLDL 160-189 mg/dL HighLDL greater than 189 mg/dL Very high Cholesterol in VLDL Calc [Ma ss/Vol]Ordered By: Tuan Haas on 09-16-2022 Cholesterol in VLDL [Mass/Vol] 19 mg/dL [facility] Complete Blood Count Auto Di ffon 09-16-2022 Basophils (Bld) [#/Vol] 0.705888520 10*3/uL Normal 0.0-0.2 10*3/uL [employer] Other Basophils/100 WBC (Bld) 0.900 % . % N [employer] Other Eosinophils (Bld) [#/Vol] 0.596057763 10*3/uL Normal 0.0-0.45 10*3/uL [employer] Other Eosinophils/100 WBC (Bld) 1.800 % . % [employer] Other Erythrocyte distribution width (RBC) [Ratio] 15.900 % High 11.9-15.3 % [employer] Other Hematocrit (Bld) [Volume fraction] 34.900 % Normal 34.0-46.4 % [employer] Other Hemoglobin (Bld) [Mass/Vol] 11.242739 g/dL Low 11.8-15.4 g/dL [employer] Other Lymphocytes (Bld) [#/Vol] 1.149768179 10*3/uL Normal 1.00-4.8 10*3/uL [employer] Other Lymphocytes/100 WBC (Bld) 26.600 % . % [employer] Other MCH (RBC) [Entitic mass] 24.8000 pg Normal 24.7-34.3 pg [employer] Other MCV (RBC) [Entitic vol] 77.5000 fL Low 80-100 fL N [facility] [employer] Other Monocytes (Bld) [#/Vol] 0.460619552 10*3/uL Normal 0.0-0.8 10*3/uL [employer] Other Monocytes/100 WBC (Bld) 9.600 % . % N [facility] [employer] Other Neutrophils (Bld) [#/Vol] 4.999591481 10*3/uL Normal 1.8-7.7 10*3/uL [employer] Other Neutrophils/100 WBC (Bld) 61.100 % . % [employer] Other Platelet mean volume (Bld) [Entitic vol] 7.9000 fL Normal 6.3-10.7 fL [employer] Other WBC (Bld) [#/Vol] 6.044646147 10*3/uL Normal 3.8 -11.6 10*3/uL [employer] Other Complete Blood Count Auto Diff 6.7 10*3/uL Normal 3.8-11.6 10*3/uL [employer] Other Complete Blood Count Auto Diff 32.0 g/dL Normal 32.0-35.0 g/dL [employer] Other Complete Blood Count Auto Diff 0.1 /100{WBC} Normal 0-0.5 /100{WBC} [employer] Other Comprehensive Metabolic Pane britney 09-16-2022 Albumin [Mass/Vol] 4.480063 g/dL Normal 3.2-5.5 g/dL [employer] Other ALT [Catalytic activity/Vol] 23 U/L Normal 10-60 U/L [employer] Other Bilirubin [Mass/Vol] 0.9022246 mg/dL Normal 0.3- 1.2 mg/dL [employer] Other Calcium [Mass/Vol] 9.6456142 mg/dL Normal 8.2-10 .2 mg/dL [employer] Other CO2 [Moles/Vol] 23.59202908 mmol/L Normal 22.0-3 0.0 mmol/L [employer] Other Creatinine [Mass/Vol] 0.07273706 mg/dL Normal 0. 44-1.03 mg/dL [employer] Other Potassium [Moles/Vol] 4.81590578 mmol/L Normal 3 .5-5.1 mmol/L [employer] Other Protein [Mass/Vol] 7.047521 g/dL Normal 6.1-7.9 g/dL [employer] Other Comprehensive Metabolic Panel > 60 [employer] Other Comprehensive Metabolic Panel 3.2 g/dL [employer] Other Creatinine and Glomerular fi ltration rate.predicted panel (S/P/Bld)Ordered By: Tuan Haas on 09-16-2022 Creatinine [Mass/Vol] 0.75 mg/dL 0.44-1.03 [facility] Eosinophils Auto (Bld) [#/Vo l]Ordered By: Tuan Haas on 09-16-2022 Eosinophils (Bld) [#/Vol] 0.1 10*3/uL 0.0-0.45 [facility] Eosinophils/100 WBC Auto (Bl d)Ordered By: Tuan Haas on 09-16-2022 Eosinophils/100 WBC (Bld) 1.8 % . [facility] Erythrocyte Sedimentation Ra chester 09-16-2022 ESR (Bld) [Velocity] 28 mm/h High 0-19 [facility] [employer] Other Erythrocyte distribution wid th Auto (RBC) [Ratio]Ordered By: Tuan Haas on 09-16-2022 Erythrocyte distribution width (RBC) [Ratio] 15.9 % 11.9-15.3 [facility] Erythrocyte sedimentation ra te by Photometric methodOrdered By: Tuan Haas on 09-16-2022 ESR Photometric method (Bld) [Velocity] 28 mm/hr 0-19 [facility] Erythrocytes [#/volume] in B lood by Automated countOrdered By: Tuan Haas on 09-16-2022 RBC (Bld) [#/Vol] 4.50 10*6/uL Normal 3.60-5.00 [facility] Estimated glomerular filtrat ion rate (GFR) non- AmericanOrdered By: Tuan Haas on 09-16-2022 GFR/1.73 sq M.predicted among non-blacks MDRD (S/P/Bld) [Vol rate/Area] > 60 mL/Min [facility] Ferritinon 09-16-2022 Ferritin [Mass/Vol] 6.0459025 ng/mL Low 11-30 6.8 ng/mL [employer] Other Ferritin [Mass/volume] in Se rum or PlasmaOrdered By: Tuan Haas on 09-16-2022 Ferritin [Mass/Vol] 6.6 ng/mL 11-306.8 [facility] Globulin Calc (S) [Mass/Vol] Ordered By: Tuan Haas on 09-16-2022 Globulin (S) [Mass/Vol] 3.2 g/dL F [facility] Glucose mean value [Mass/vol ume] in Blood Estimated from glycated hemoglobinOrdered By: Tuan Haas on 09-16-2022 Average glucose Estimated from glycated hemoglobin (Bld) [Mass/Vol] 120 mg/dL [facility] Hematocrit Auto (Bld) [Volum e fraction]Ordered By: Tuan Haas on 09-16-2022 Hematocrit (Bld) [Volume fraction] 34.9 % 34.0-46.4 [facility] Hemoglobin A1c percentageOrd ered By: Tuan Haas on 09-16-2022 HbA1c (Bld) [Mass fraction] 5.8 % 4.3-5.6 [facility] Comment on above: Increased risk for d iabetes: 5.7 - 6.4diabetes: >6.4glycemic control for adults with diabetes: <7.0 Hemoglobin [Mass/volume] in BloodOrdered By: Tuan Haas on 09-16-2022 Hemoglobin (Bld) [Mass/Vol] 11.2 g/dL 11.8-15.4 [facility] Iron [Mass/volume] in Serum or PlasmaOrdered By: Tuan Haas on 09-16-2022 Iron [Mass/Vol] 55 ug/dL Normal 40-150 ug/dL [facility] Iron and TIBC Profileon 09-01 Iron and TIBC Profile 10.8 % Low 20-50 % [facility] [employer] Other Iron binding capacity [Mass/ volume] in Serum or PlasmaOrdered By: Tuan Haas on 09-16-2022 Iron binding capacity [Mass/Vol] 507 ug/dL 255-450 [facility] Iron saturation [Mass Fracti on] in Serum or PlasmaOrdered By: Tuan Haas on 09-16-2022 Iron saturation [Mass fraction] 10.8 % 20-50 [facility] Leukocytes [#/volume] correc keara for nucleated erythrocytes in Blood by Automated counOrdered By: Tuan Haas on 09-16-2022 WBC corrected for nucl RBC Auto (Bld) [#/Vol] 6.7 10*3/uL 3.8-11.6 [facility] Lipid Panelon 09-16-2022 Cholesterol in LDL Elph Qn 96 mg/dL Normal 0-100 mg/dL [facility] [employer] Other Lipid Panel 96 mg/dL Normal 35-149 mg/dL [place] [employer] Other Lipid Panel 19 mg/dL [employer] [facility] [employer] Other Lymphocytes Auto (Bld) [#/Vo l]Ordered By: Tuan Haas on 09-16-2022 Lymphocytes (Bld) [#/Vol] 1.8 10*3/uL 1.00-4.8 [facility] Lymphocytes/100 WBC Auto (Bl d)Ordered By: Tuan Haas on 09-16-2022 Lymphocytes/100 WBC (Bld) 26.6 % . [facility] MCH Auto (RBC) [Entitic mass ]Ordered By: Tuan Haas on 09-16-2022 MCH (RBC) [Entitic mass] 24.8 pg 24.7-34.3 [facility] MCHC Auto (RBC) [Mass/Vol]Or dered By: Tuan Haas on 09-16-2022 MCHC (RBC) [Mass/Vol] 32.0 g/dL 32.0-35.0 [facility] MCV Auto (RBC) [Entitic vol] Ordered By: Tuan Haas on 09-16-2022 MCV (RBC) [Entitic vol] 77.5 fL 80-[address] [facility] Monocytes Auto (Bld) [#/Vol] Ordered By: Tuan Haas on 09-16-2022 Monocytes (Bld) [#/Vol] 0.6 10*3/uL 0.0-0.8 [facility] Monocytes/100 WBC Auto (Bld) Ordered By: Tuan Haas on 09-16-2022 Monocytes/100 WBC (Bld) 9.6 % . F [facility] Neutrophils Auto (Bld) [#/Vo l]Ordered By: Tuan Haas on 09-16-2022 Neutrophils (Bld) [#/Vol] 4.1 10*3/uL 1.8-7.7 [facility] Neutrophils/100 WBC Auto (Bl d)Ordered By: Tuan Haas on 09-16-2022 Neutrophils/100 WBC (Bld) 61.1 % . [facility] No Panel InformationOrdered By: Tuan Haas on 09-16-2022 Estimated GFR () > 60 mL/Min [facility] Comment on above: GFR estimated refere nce range: According to KDOQI guidelines, <60 ml/min/1.73m2 is sufficient to diagnose a patient with chronic kidney disease. Pharmacy Creatinine Clearance (Chem N/A [facility] Nucleated erythrocytes [Pres ence] in Blood by Automated countOrdered By: Tuan Haas on 09-16-2022 Nucleated RBC Auto Ql (Bld) 0.1 /100{WBC} 0-0.5 [facility] Platelet mean volume Auto (B ld) [Entitic vol]Ordered By: Tuan Haas on 09-16-2022 Platelet mean volume (Bld) [Entitic vol] 7.9 fL 6.3-10.7 [facility] Platelets [#/volume] in Bloo d by Automated countOrdered By: Tuan Haas on 09-16-2022 Platelets (Bld) [#/Vol] 335 10*3/uL Normal 150- 450 10*3/uL [facility] Protein [Mass/volume] in Ser um or PlasmaOrdered By: Tuan Haas on 09-16-2022 Protein [Mass/Vol] 7.2 g/dL 6.1-7.9 [facility] Rheumatoid Factoron 09-16-19 23 Rheumatoid Factor <10.0 <14.0 [facility] [employer] Other Serum or plasma alanine pyle otransferase measurement without P-5'-P (enzymatic activiOrdered By: Tuan Haas on 09-16-2022 ALT No additional P-5'-P [Catalytic activity/Vol] 23 U/L 10-60 [facility] Serum or plasma albumin/glob ulin mass ratioOrdered By: Tuan Haas on 09-16-2022 Albumin/Globulin [Mass ratio] 1.3 {ratio} [facility] Serum or plasma alkaline corrina sphatase measurement (enzymatic activity/volume)Ordered By: Tuan Haas on 09-16-2022 ALP [Catalytic activity/Vol] 64 U/L Normal 32-92 U/L [facility] Serum or plasma anion gap de terminationOrdered By: Tuan Haas on 09-16-2022 Anion gap [Moles/Vol] 10.0 mmol/L 6.0-15.0 [facility] Serum or plasma aspartate am inotransferase measurement (enzymatic activity/volume)Ordered By: Tuan Haas on 09-16-2022 AST [Catalytic activity/Vol] 17 U/L Normal 10-42 U/L [facility] Serum or plasma calcium josé manuel urement (mass/volume)Ordered By: Tuan Haas on 09-16-2022 Calcium [Mass/Vol] 9.5 mg/dL 8.2-10.2 [facility] Serum or plasma chloride liu surement (moles/volume)Ordered By: Tuan Haas on 09-16-2022 Chloride [Moles/Vol] 107 mmol/L Normal 95-114 mmol/L [facility] Serum or plasma glucose josé manuel urement (mass/volume)Ordered By: Tuan Haas on 09-16-2022 Glucose [Mass/Vol] 94 mg/dL Normal 70-100 mg/dL [facility] Comment on above: ADA recommended refe rence rangeRandom Glucose Reference Range is dependent on time and content of last meal. Glucose of more than 200 mg/dL in a nonstressed, ambulatory subject supports the diagnosis of Diabetes Mellitus. Serum or plasma high density lipoprotein (HDL) cholesterol measurementOrdered By: Tuan Haas on 09-16-2022 Cholesterol in HDL [Mass/Vol] 42 mg/dL Normal 35-85 mg/dL [facility] Comment on above: HDL CHOL ATP-III CLA SSIFICATION Cardiovascular RiskHDL > or equal to 60 mg/dL LOWHDL < 40 mg/dL HIGH Serum or plasma potassium me asurement (moles/volume)Ordered By: Tuan Haas on 09-16-2022 Potassium [Moles/Vol] 4.1 mmol/L 3.5-5.1 [facility] Serum or plasma sodium measu rement (moles/volume)Ordered By: Tuan Haas on 09-16-2022 Sodium [Moles/Vol] 136 mmol/L Normal 136-146 mmol/L [facility] Serum or plasma total biliru bin measurement (mass/volume)Ordered By: Tuan Haas on 09-16-2022 Bilirubin [Mass/Vol] 0.3 mg/dL 0.3-1.2 [facility] Serum or plasma total carbon dioxide measurement (moles/volume)Ordered By: Tuan Haas on 09-16-2022 CO2 [Moles/Vol] 23.1 mmol/L 22.0-30.0 [facility] Serum or plasma total choles terol/high density lipoprotein (HDL) cholesterol mass ratOrdered By: Tuan Haas on 09-16-2022 Cholesterol.total/Mary sterol in HDL [Mass ratio] 3.7 {ratio} <5.0 [facility] Serum or plasma urea nitroge n measurement (mass/volume)Ordered By: Tuan Haas on 09-16-2022 Urea nitrogen [Mass/Vol] 11 mg/dL Normal 9-23 mg/dL [facility] Serum or plasma uric acid me asurement (mass/volume)Ordered By: Tuan Haas on 09-16-2022 Urate [Mass/Vol] 5.4 mg/dL 2.6-7.2 [facility] TSH DL <= 0.005 mIU/L QnOrde red By: Tuan Haas on 09-16-2022 TSH Qn 0.85 m[IU]/L 0.45-5.33 [facility] Thyroid Stimulating Hormoneo n 09-16-2022 TSH Qn 0.65901499766 m[IU]/L Normal 0.45-5 .33 u[iU]/mL [employer] [facility] [employer] Other Triglyceride [Mass/volume] i n Serum or PlasmaOrdered By: Tuan Haas on 09-16-2022 Triglyceride [Mass/Vol] 96 mg/dL 35-[address] [facility] Comment on above: TRIG ATP III CLASSIF ICATIONTRIG less than 150 mg/dL NormalTRIG 150-199 mg/dL Borderline highTRIG 200-500 mg/dL High TRIG greater than 500 mg/dL Very highStandard traceable to the Center for Disease Conrtrol and Prevention (CDC) test method. Uric Acidon 09-16-2022 Urate [Mass/Vol] 5.6837531 mg/dL Normal 2.6-7.2 mg/dL [employer] [facility] [employer] Other WBC Auto (Bld) [#/Vol]Ordere d By: Tuan Haas on 09-16-2022 WBC (Bld) [#/Vol] 6.7 10*3/uL 3.8-11.6 [facility] CHEMISTRYOrdered By: SYSTEM SYSTEM on 06-25-2022 HCG.beta subunit Qn 817 m[IU]/mL High 1 - 3 mIU/mL [facility] BLOOD BANKOrdered By: Raegan Esqueda on 06-17-2022 ABSC Gel Interp Negative (06/17/22 12:35 PM) Normal [facility] BB Subsection CHEMISTRYOrdered By: SYSTEM SYSTEM on 06-17-2022 HCG.beta subunit Qn 96 m[IU]/mL High 1 - 3 mIU/mL [facility] Progesterone [Mass/Vol] 5.40 ng/mL Invalid Interpretation Code [facility] HEMATOLOGYOrdered By: Malgorzata Steven on 06-17-2022 Erythrocyte distribution width (RBC) [Ratio] 16.0 % High 10.9 - 14.2 % [facility]eAutoSS Hematocrit (Bld) [Volume fraction] 32.6 % Low 34.0 - 46.0 % [facility]eAuto[facility] Hemoglobin (Bld) [Mass/Vol] 10.5 g/dL Low 12.0 - 16.0 gm/dL [facility] MCH (RBC) [Entitic mass] 23.8 pg Low 27.0 - 34.0 pg [facility] MCHC (RBC) [Mass/Vol] 32.3 g/dL Normal 31.4 - 36.0 gm/dL [facility] MCV (RBC) [Entitic vol] 73.6 fL Low 80.0 - 100.0 fL [facility] Platelet mean volume (Bld) [Entitic vol] 8.2 fL Normal 6.4 - 10.8 fL [facility] Platelets (Bld) [#/Vol] 283.0 E9/L Normal 150. 0 - 500.0 E9/L [facility] RBC (Bld) [#/Vol] 4.4 E12/L Normal 4.3 - 5.9 E12/L [facility] Comment on above: Result Comment: Slid e reviewed by BC. WBC corrected for nucl RBC Auto (Bld) [#/Vol] 4.5 E9/L Normal 4.0 - 11.0 E9/L [facility]eAutoSS MICRO OTHER TESTSOrdered By: Steph William on 06-16-2022 Rapid COV Int NEG Ctl Pass (06/16/22 4:27 PM) Normal [facility] Man Sero Rapid COV Int POS Ctl Pass (06/16/22 4:27 PM) Normal [facility] S. pyogenes Ag IA.rapid Ql (Throat) Negative (06/16/22 4:27 PM) Normal Negative [facility] SARS-CoV+SARS-CoV-2 (COVID-19) Ag IA.rapid Ql (Resp) Not Detected (06/16/22 4:27 PM) Normal Not Detected [facility] SEROLOGYOrdered By: Steph burger on 06-16-2022 HCG.beta subunit (U) [Moles/Vol] Positive (06/16/22 4:31 PM) Normal [facility] URINALYSISOrdered By: Steph William on 06-16-2022 Bilirubin Ql (U) Negative (06/16/22 4:31 PM) Normal Negative [facility] UA Auto SS Clarity (U) Clear (06/16/22 4:31 PM) Normal Clear [facility] UA Auto SS Color (U) Yellow (06/16/22 4:31 PM) Normal Yellow [facility] UA Auto SS Epithelial cells.squamous LM.HPF (Urine sed) [#/Area] 5-8 /HPF Normal 0-2/HPF [facility] UA Aut o SS Glucose Test strip (U) [Mass/Vol] Negative (06/16/22 4:31 PM) Normal Negative [facility] UA Auto SS Hemoglobin Ql (U) Negative (06/16/22 4:31 PM) Normal Negative [facility]A Auto SS Ketones (U) [Mass/Vol] Negative (06/16/22 4:31 PM) Normal Negative [facility] UA Auto SS [place].plasma/[place]. RBC (Bld) [Mass ratio] 0-3 /HPF Normal 0-3/HPF [facility] UA A uto SS Nitrite Ql (U) Negative (06/16/22 4:31 PM) Normal Negative [facility] UA Auto SS pH (U) 5.5 *NA* (06/16/22 4:31 PM) Invalid Interpretation Code 5.0 - 9.0 [facility] Auto SS Protein (U) [Mass/Vol] Negative (06/16/22 4:31 PM) Normal Negative [facility] UA Auto SS Specific gravity (U) [Rel density] >=1.030 *NA* (06/16/22 4:31 PM) Invalid Interpretation Code 1.005 - 1.030 [facility] UA Auto SS UA Spec Desc Clean Catch (06/16/22 4:31 PM) Normal [facility] UA Auto SS Urobilinogen Qn (U) 0.7892802 {Enedelia'U}/dL Normal 0.0 - 1.0 EU/dL [facility] UA Auto SS WBC Auto Ql (U) Negative (06/16/22 4:31 PM) Normal Negative [facility] UA Auto SS WBC LM.HPF (Urine sed) [#/Area] 0-5 /HPF Normal 0-5/HPF [facility] UA Auto SS Activated partial thrombopla stin time (aPTT) in platelet poor plasma by coagulation aOrdered By: Tuan Haas on 04-04-2022 aPTT Coag (PPP) [Time] 37.2 s 25.1-36.5 Fi [facility] Coagulation Profileon 2021 aPTT Coag (Bld) [Time] 37.200 s High 25.1-36.5 s N [employer] Other F5 gene mutations found [Мария ntifier] in Blood or Tissue by Molecular genetics methodOrdered By: Tuan Haas on 04-04-2022 F5 gene targeted mutation analysis [employer] Nom (Bld/Tiss) See comment . [facility] Comment on above: Result: c.1601G>A (p .[id number]) - Not Detected This result is not associated with an increased risk for venous thromboembolism. See Additional Clinical Information and Comments. Additional Clinical Information: Venous thromboembolism is a multifactorial disease influenced by genetic, environmental, and circumstantial risk factors. The c.1601G>A (p. [id number]) variant in the F5 gene, commonly referred to as Factor V Leiden, is a genetic risk factor for venous thromboembolism. Heterozygous carriers of this variant have a 6- to 8-fold increased risk for venous thromboembolism. Individuals homozygous for this variant (ie, with a copy of the variant on each chromosome) have an approximately 80-fold increased risk for venous thromboembolism. Individuals who carry both a c.*97G>A variant in the F2 gene and Factor V Leiden have an approximately 20-fold increased risk for venous thromboembolism. Risks are likely to be even higher in more complex genotype combinations involving the F2 c.*97G>A variant and Factor V Leiden (PMID: [id number]). Additional risk factors include but are not limited to: deficiency of protein C, protein S, or antithrombin III, age, male sex, personal or family history of deep vein thromboembolism, smoking, surgery, prolonged immobilization, malignant neoplasm, tamoxifen treatment, raloxifene treatment, oral contraceptive use, hormone replacement therapy, and . Management of thrombotic risk and thrombotic events should follow established guidelines and fit the clinical circumstance. This result cannot predict the occurrence or recurrence of a thrombotic event. Comment: Genetic counseling is recommended to discuss the potential clinical implications of positive results, as well as recommendations for testing family members. Genetic Coordinators are available for health care providers to discuss results at [phone] Test Details: Variant Analyzed: c.1601G>A (p. [id number]), referred to as Factor V Leiden Methods/Limitations: DNA analysis of the F5 gene (NM_000130.5) was performed by PCR amplification followed by restriction enzyme analysis. The diagnostic sensitivity is >99%. Results must be combined with clinical information for the most accurate interpretation. Molecular-based testing is highly accurate, but as in any laboratory test, diagnostic errors may occur. False positive or false negative results may occur for reasons that include genetic variants, blood transfusions, bone marrow transplantation, somatic or tissue-specific mosaicism, mislabeled samples, or erroneous representation of family relationships. This test was developed and its performance characteristics determined by [employer]. It has not been cleared or approved by the Food and Drug Administration. References: Jame Greer, Dang HENDERSON, Vince R, Yenni WW, Devaughn JH; ACMG Professional Practice and Guidelines Committee. Addendum: [employer] consensus statement on factor V Leiden mutation testing. Veronica Med. 2020Nov 03. doi: 10.1038/p53823-278-82159-q. PMID: 35579311. Earline MORAN. Factor V Leiden Thrombophilia. 1998January 12 [Updated 2017Sep 04]. In: Baldev MP, Denis HH, Danny RA, et al., editors. Jillian(R) [Internet]. [place] ([place]): [facility]; 9153-0999. Available from: https://www.ncbi.nlm.nih.gov/books/HDR5319/ Alek Greer, Dang HENDERSON, Ivan X, Octaviano B, Lenny EB, Kaylin P, Elliott HOFF; [facility] C4 Planner Committee. Venous thromboembolism laboratory testing (factor V Leiden and factor II c.*97G>A), 2018 update: a technical standard of the [employer] and Genomics (ACMG). Veronica Med. 2018 Aug;20(12):1480-7815. doi: 10.1038/[id number]-n. Epub 2017Jun 05. PMID: 53489282. Kristie Barrios, PhD, FACMG Emelia Carlisle, PhD Bhavesh Phipps, PhD, FACMG Villa Daly, PhD, FACMG Jasen Irizarry, PhD, FACMG W Samia Dunlap, PhD, FACMG Jaelyn Carreon, PhD, FAC Kay Little, PhD, FAC Performed at: [facility] [address] [place], [place] [id number] [employer] Gener[employer] Repairer: Annmarie Bowen [facility], Phone: [phone] Laboratory - CoagulationOrde red By: Tuan Haas on 04-04-2022 PT Coag (PPP) [Time] 11.5 s 9.0-12.9 [facility] Platelet poor plasma interna tional normalized ratio (INR) by coagulation assay (relatOrdered By: Tuan Haas on 04-04-2022 INR Coag (PPP) [Relative time] 1.0 {INR} [facility] Comment on above: INR Therapeutic Rang e A) Pre- and Peroperative OAT started two weeks before surgery. NOT HIP SURGERY: 1.5 - 2.5 HIP SURGERY: 2 - 3 B) Primary and secondary prevention of venous THROMBOSIS: 2 - 3 C) Active venous thrombosis, pulmonary embolism and prevention of recurrent venous thrombosis: 2 - 3 D) Prevention of arterial thromboembolism including patients with mechanical heart valves: 3 - 4.5 XR wrist RT min 3V*on 2021 XR wrist RT min 3V* [facility] [employer] Other XR wrist RT min 3V* [facility] [employer] Other XR wrist RT min 3V* [address] [place] [address] [employer] Other XR wrist RT min 3V* Sid DEBBIE [id number] [employer] Other XR wrist RT min 3V* XRay Report [employer] to Phone Other XR wrist RT min 3V* Signed [employer] Other XR wrist RT min 3V* Patient: Kassie Crawford MR#: [id number] [employer] Other XR wrist RT min 3V* [id number] [employer] Other XR wrist RT min 3V* : 2000 Acct:[id number] [employer] Other XR wrist RT min 3V* Age/Sex: 21 / F ADM Date: 04/04/22 [employer] Other XR wrist RT min 3V* Loc: XD Room: Type: [facility] [employer] Other XR wrist RT min 3V* Attending Dr: Tuan Haas DO [employer] Other XR wrist RT min 3V* Copies to: Tuan Haas, [employer] Other XR wrist RT min 3V* Ordering Provider: Tuan Haas DO [employer] Other XR wrist RT min 3V* Date of Service: 04/04/22 [employer] Other XR wrist RT min 3V* XR/XR hand RT min 3V*: Wrist pain, right [employer] Other XR wrist RT min 3V* ([id number]) XR/XR wrist RT min 3V*: Wrist pain, right [employer] Other XR wrist RT min 3V* RIGHT HAND - 3 views , right wrist 4 views [employer] Other XR wrist RT min 3V* REASON FOR EXAM: Right distal forearm and wrist pulling sensation. [employer] Other XR wrist RT min 3V* COMPARISON: None [employer] Other XR wrist RT min 3V* FINDINGS: [employer] Other XR wrist RT min 3V* No focal soft tissue abnormality. No acute bony process. Joint spaces are maintained [employer] Other XR wrist RT min 3V* XR/XR hand RT min 3V* [employer] Other XR wrist RT min 3V* IMPRESSION: [employer] Other XR wrist RT min 3V* NO ACUTE BONY INJURY. [employer] Other XR wrist RT min 3V* Impression dictated by: Bhavesh Fallon Jr., D.O.04/04/2022 12:59 PM [employer] Other XR wrist RT min 3V* Dictation Location: [place] [address] [employer] Other XR wrist RT min 3V* Transcribed By: TONE 04/04/22 1259 [employer] Other XR wrist RT min 3V* Dictated By: Bhavesh Fallon Jr, DO 04/04/22 1256 [employer] Other XR wrist RT min 3V* Signed By: [employer] Other XR wrist RT min 3V* 04/04/22 1259 No rt Search to Phone Other CHEMISTRYOrdered By: SYSTEM SYSTEM on 03-20-2022 Free T4 index Calc [Mass/Vol] 8.22 ng/dL Normal 5.90 - 13.10 ng/dL [facility] Rem[facility] Prolactin [Mass/Vol] 12.98 ng/mL Normal 3.34 - 26.72 ng/mL [facility] T4 [Mass/Vol] 8.1 ug/dL Normal 4.6 - 9.1 mcg/dL [facility] T4 uptake [Mass/Vol] 40.6 % Normal 32.0 - 48.4 % [facility] TSH Qn 0.86 m[IU]/L Normal 0.34 - 5.60 mcIU/mL [facility] COAGULATIONOrdered By: Charmaine Galindo on 03-20-2022 aPTT Coag (PPP) [Time] 38.0 s High 25.1 - 36.5 second(s) [facility] Auto Coag INR Coag (PPP) [Relative time] 1.0 {INR} Invalid Interpretation Code [facility] Auto Coag PT Coag (PPP) [Time] 11.8 s Normal 10.2 - 12.9 second(s) [facility] Auto Coag Reference Laboratory Testing Ordered By: Deanna Sheehan on 03-20-2022 Test Code 982606 Invalid Interpretation Code [facility] Send[employer]sSS Test Code 119216 Invalid Interpretation Code [facility] [employer] Test Code 962730 Invalid Interpretation Code [facility] [employer] Test Name Chromosome Anal Invalid Interpretation Code [facility] [employer] Test Name PAL-1 Invalid Interpretation Code [facility] [employer] Test Name PAL-1 AG Invalid Interpretation Code [facility] [employer] URINALYSISOrdered By: Ana Paula rae on 03-10-2022 Bacteria LM Ql (Urine sed) Trace /HPF Normal Trace/HPF [facility] UA Auto SS Bilirubin Ql (U) Negative (03/10/22 3:13 PM) Normal Negative [facility] UA Auto SS Clarity (U) SL CLOUDY Invalid Interpretation Code [facility] UA Auto SS Color (U) Yellow (03/10/22 3:13 PM) Normal Yellow [facility] UA Auto SS Epithelial cells.squamous LM.HPF (Urine sed) [#/Area] 9-10 /HPF Normal 0-2/HPF [facility] UA Aut o SS Glucose Test strip (U) [Mass/Vol] Negative (03/10/22 3:13 PM) Normal Negative [facility] UA Auto SS Hemoglobin Ql (U) 3+ *ABN* (03/10/22 3:13 PM) Invalid Interpretation Code Negative [facility] UA Auto SS Ketones (U) [Mass/Vol] Negative (03/10/22 3:13 PM) Normal Negative [facility] UA Auto SS [place].plasma/[place]. RBC (Bld) [Mass ratio] >30 /HPF Invalid Interpretation Code 0-3/HPF [facility] UA Auto SS Nitrite Ql (U) Negative (03/10/22 3:13 PM) Normal Negative [facility] UA Auto SS pH (U) 6.5 *NA* (03/10/22 3:13 PM) Invalid Interpretation Code 5.0 - 9.0 [facility] UA Auto SS Protein (U) [Mass/Vol] Negative (03/10/22 3:13 PM) Normal Negative [facility] UA Auto SS Specific gravity (U) [Rel density] 1.020 *NA* (03/10/22 3:13 PM) Invalid Interpretation Code 1.005 - 1.030 [facility] UA Auto SS UA Spec Desc Clean Catch (03/10/22 3:13 PM) Normal [facility] UA Auto SS Urobilinogen Qn (U) 0.5407259 {Enedelia'U}/dL Normal 0.0 - 1.0 EU/dL [facility] UA Auto SS WBC Auto Ql (U) Trace *ABN* (03/10/22 3:13 PM) Invalid Interpretation Code Negative [facility] UA Auto SS WBC LM.HPF (Urine sed) [#/Area] 0-5 /HPF Normal 0-5/HPF [facility] UA Auto SS CHEMISTRYOrdered By: SYSTEM SYSTEM on 02-05-2022 Albumin [Mass/Vol] 3.6 g/dL Normal 3.3 - 5.0 gm/dL [facility] Albumin/Globulin [Mass ratio] 0.9 {ratio} Low 1.1 - 2.2 [facility] ALP [Catalytic activity/Vol] 54 [iU]/d Normal 21 - 98 Int._Unit/L [facility] ALT No additional P-5'-P [Catalytic activity/Vol] 27 [iU]/d Normal 6 - 46 Int._Unit/L [facility] Anion gap [Moles/Vol] 13 mmol/L Normal 6 - 16 mEq/L [facility] AST [Catalytic activity/Vol] 23 [iU]/d Normal 5 - 43 Int._Unit/L [facility] Bilirubin [Mass/Vol] 0.5 mg/dL Normal 0.0 - 1 .1 mg/dL [facility] Bilirubin.direct [Mass/Vol] mg/dL Normal 0.1 - 0.4 mg/dL [facility] Bilirubin.indirect [Mass or moles/Vol] Unable to Calculate mg/dL Invalid Interpretation Code 0.1 - 0.9 mg/dL [facility] Calcium [Mass/Vol] 8.9 mg/dL Normal 8.9 - 11. 1 mg/dL [facility] Chloride [Moles/Vol] 100 mmol/L Low 101 - 1 11 mmol/L [facility] CO2 [Moles/Vol] 20 mmol/L Low 21 - 31 mmol/L [facility] Creatinine [Mass/Vol] 0.7 mg/dL Normal 0.5 - 1.3 mg/dL [facility] GFR/1.73 sq M.predicted among blacks MDRD (S/P/Bld) [Vol rate/Area] mL/min/1.73 m2 Normal >=59mL/min/ 1.73 m2 [facility] Chem S GFR/1.73 sq M.predicted among non-blacks MDRD (S/P/Bld) [Vol rate/Area] mL/min/1.73 m2 Normal >=59mL/min/ 1.73 m2 [facility] Chem S Globulin (S) [Mass/Vol] 3.9 g/dL Normal 1.4 - 4.0 gm/dL [facility] Glucose [Mass/Vol] 92 mg/dL Normal 55 - 199 mg/dL [facility] Lipase [Catalytic activity/Vol] 26 U/L Normal 13 - 58 unit/L [facility] Potassium [Moles/Vol] 3.2 mmol/L Low 3.5 - 5.3 mmol/L [facility] Protein [Mass/Vol] 7.5 g/dL Normal 6.0 - 7.8 gm/dL [facility] Sodium [Moles/Vol] 130 mmol/L Low 135 - 145 mmol/L [facility] Urea nitrogen [Mass/Vol] 8 mg/dL Normal 5 - 21 mg/dL [facility] Urea nitrogen/Creatinine [Mass ratio] 11 mg/mg Normal 10 - 20 [facility] HEMATOLOGYOrdered By: Ana Paula rae on 02-05-2022 Anisocytosis Ql (Bld) Present (02/05/22 7:11 PM) Normal [facility] HemeManSS Erythrocyte distribution width (RBC) [Ratio] 15.3 % High 10.9 - 14.2 % [facility] HemeAutoSS Hematocrit (Bld) [Volume fraction] 35.0 % Normal 34.0 - 46.0 % [facility] HemeAutoSS Hemoglobin (Bld) [Mass/Vol] 11.3 g/dL Low 12.0 - 16.0 gm/dL [facility]eAutoSS Hypochromia Auto Ql (Bld) Present (02/05/22 7:11 PM) Normal [facility] HemeManSS MCH (RBC) [Entitic mass] 24.8 pg Low 27.0 - 34.0 pg [facility]eAutoSS MCHC (RBC) [Mass/Vol] 32.4 g/dL Normal 31.4 - 36.0 gm/dL [facility]eAutoSS MCV (RBC) [Entitic vol] 76.5 fL Low 80.0 - 100.0 fL [facility] HemeAutoSS Microcytes Ql (Bld) Present (02/05/22 7:11 PM) Normal [facility] HemeManSS Morphology Leopoldo (Bld) [Interp] See Morphology (02/05/22 7:11 PM) Normal [facility]eManSS Platelet mean volume (Bld) [Entitic vol] 7.9 fL Normal 6.4 - 10.8 fL [facility]eAutoSS Platelets (Bld) [#/Vol] 237.0 E9/L Normal 150. 0 - 500.0 E9/L [facility]eAutoSS RBC (Bld) [#/Vol] 4.6 E12/L Normal 4.3 - 5.9 E12/L [facility]eAuto[facility] WBC corrected for nucl RBC Auto (Bld) [#/Vol] 5.2 E9/L Normal 4.0 - 11.0 E9/L [facility] HemeAutoSS HEMATOLOGYOrdered By: SYSTEM SYSTEM on 02-05-2022 Basophils/100 WBC (Bld) 0.4 % Normal 0.0 - 2.0 % [facility]eAutoSS Basophils/Leukocytes Auto (Bld) [Pure # fraction] 0.0 E9/L Normal 0.0 - 0.2 E9/L [facility] Eosinophils/100 WBC (Bld) 0.9 % Normal 0.0 - 8.0 % [facility]eAutoSS Eosinophils/Leukocytes Auto (Bld) [Pure # fraction] 0.0 E9/L Normal 0.0 - 0.5 E9/L [facility] Lymphocytes/100 WBC (Bld) 5.7 % Low 14.0 - 50.0 % [facility]eAutoSS Lymphocytes/Leukocytes Auto (Bld) [Pure # fraction] 0.3 E9/L Low 1.0 - 4.0 E9/L [facility] Monocytes/100 WBC (Bld) 10.2 % Normal 4.0 - 14.0 % [facility] Monocytes/Leukocytes Auto (Bld) [Pure # fraction] 0.5 E9/L Normal 0.2 - 1.0 E9/L [facility] Neutrophils/100 WBC (Bld) 82.8 % High 36.0 - 75.0 % [facility]eAutoSS Neutrophils/Leukocytes Auto (Bld) [Pure # fraction] 4.3 E9/L Normal 2.0 - 7.5 E9/L [facility] MICRO OTHER TESTSOrdered By: Allison Johnston on 02-05-2022 Influenzae A Ag Negative (02/05/22 7:25 PM) Normal Negative [facility] Influenzae B Ag Negative (02/05/22 7:25 PM) Normal Negative [facility] Man Sero Rapid COV Int NEG Ctl Pass (02/05/22 7:25 PM) Normal [facility] Man Sero Rapid COV Int POS Ctl Pass (02/05/22 7:25 PM) Normal [facility] Man Sero SARS-CoV+SARS-CoV-2 (COVID-19) Ag IA.rapid Ql (Resp) Detected 1 *ABN* (02/05/22 7:25 PM) Invalid Interpretation Code Not Detected [facility] Comment on above: Result Comment: Resu lts Called To Celia Avila/BRIJESH By Zuleyma Johnston And Read Back For Confirmation On 02/05/2022 19:56:09 EDT. URINALYSISOrdered By: Parveen Johnston on 02-05-2022 Bacteria LM Ql (Urine sed) Trace /HPF Normal Trace/HPF [facility] UA Auto SS Bilirubin Ql (U) Negative (02/05/22 8:30 PM) Normal Negative [facility] UA Auto SS Clarity (U) Slightly Cloudy *ABN* (02/05/22 8:30 PM) Invalid Interpretation Code Clear [facility] UA Auto SS Color (U) Yellow (02/05/22 8:30 PM) Normal Yellow [facility] UA Auto SS Epithelial cells.squamous LM.HPF (Urine sed) [#/Area] 9-10 /HPF Normal 0-2/HPF [facility] UA Aut o SS Glucose Test strip (U) [Mass/Vol] Negative (02/05/22 8:30 PM) Normal Negative [facility] UA Auto SS Hemoglobin Ql (U) Negative (02/05/22 8:30 PM) Normal Negative [facility] UA Auto SS Ketones (U) [Mass/Vol] 1+ *ABN* (02/05/22 8:30 PM) Invalid Interpretation Code Negative [facility] UA Auto SS [place].plasma/[place]. RBC (Bld) [Mass ratio] 0-3 /HPF Normal 0-3/HPF [facility] UA A uto SS Nitrite Ql (U) Negative (02/05/22 8:30 PM) Normal Negative [facility] UA Auto SS pH (U) 8.0 *NA* (02/05/22 8:30 PM) Invalid Interpretation Code 5.0 - 9.0 [facility] UA Auto SS Protein (U) [Mass/Vol] Negative (02/05/22 8:30 PM) Normal Negative [facility] UA Auto SS Specific gravity (U) [Rel density] 1.010 *NA* (02/05/22 8:30 PM) Invalid Interpretation Code 1.005 - 1.030 [facility] UA Auto SS UA Spec Desc Clean Catch (02/05/22 8:30 PM) Normal [facility] UA Auto SS Urobilinogen Qn (U) 0.1042082 {Enedelia'U}/dL Normal 0.0 - 1.0 EU/dL [facility] UA Auto SS WBC Auto Ql (U) Trace *ABN* (02/05/22 8:30 PM) Invalid Interpretation Code Negative [facility] UA Auto SS WBC LM.HPF (Urine sed) [#/Area] 0-5 /HPF Normal 0-5/HPF [facility] UA Auto SS Reference Laboratory Testing Ordered By: Nikole Franco on 01-15-2022 Test Code 575503 Invalid Interpretation Code [facility] Test Name IG PAP HPV GERRY Invalid Interpretation Code [facility] BLO[facility] BANKOrdered By: Ana Paula rae on 01-14-2022 ABO/Rh Interp Positive Invalid Interpretation Code [facility] BB Subsection ABSC Gel Interp Negative (01/14/22 4:50 PM) Normal [facility] BB Subsection HEMATOLOGYOrdered By: Ana Paula rae on 01-14-2022 Erythrocyte distribution width (RBC) [Ratio] 15.1 % High 10.9 - 14.2 % [facility]eAutoSS Hematocrit (Bld) [Volume fraction] 32.3 % Low 34.0 - 46.0 % [facility] Hemoglobin (Bld) [Mass/Vol] 10.8 g/dL Low 12.0 - 16.0 gm/dL [facility] MCH (RBC) [Entitic mass] 25.7 pg Low 27.0 - 34.0 pg [facility] MCHC (RBC) [Mass/Vol] 33.4 g/dL Normal 31.4 - 36.0 gm/dL [facility] MCV (RBC) [Entitic vol] 77.1 fL Low 80.0 - 100.0 fL [facility] Platelet mean volume (Bld) [Entitic vol] 7.9 fL Normal 6.4 - 10.8 fL [facility] Platelets (Bld) [#/Vol] 289.0 E9/L Normal 150. 0 - 500.0 E9/L [facility] RBC (Bld) [#/Vol] 4.2 E12/L Low 4.3 - 5.9 E12/L [facility] WBC corrected for nucl RBC Auto (Bld) [#/Vol] 7.3 E9/L Normal 4.0 - 11.0 E9/L [facility] COVID + FLU Quick Testingon 09-11-2021 SARS-CoV-2 (COVID-19) RNA SAMIR+probe Ql (Unsp spec) Negative [employer] Other COVID + FLU Quick Testing Negative [employer] Other Covid-19 PCR ([facility]on SARS-CoV-2 (COVID-19) RNA SAMIR+probe Ql (Unsp spec) Not detected Normal NOT DETECTED [facility] Comment on above: Result Comment: This test is not yet approved or cleared by the [place] FDA. When there are no FDA-approved or cleared tests available, and other criteria are met, FDA can make tests available under an emergency access mechanism called an Emergency Use Authorization (EUA). The EUA for this test is supported by the Endodontist of Health and Human Service's (HHS's) declaration that circumstances exist to justify the emergency use of in vitro diagnostics for the detection and/or diagnosis of the virus that causes COVID-19. This EUA will remain in effect (meaning this test can be used) for the duration of the COVID-19 declaration justifying emergency of IVDs, unless it is terminated or revoked by FDA (after which the test may no longer be used). When diagnostic testing is negative, the possibility of a false negative should be considered in the context of a patient's recent exposures and the presence of clinical signs and symptoms consistent with SARS-CoV-2. Performed By: #### C [facility] #### [facility] [address] [place] [address] Dr. Kiran Peterson Vital Signs Date Time Vital Sign Value Performing Clinician Facility 02-07-2025 14:53-0400 Body height 170.2 cm Herman Urban Interns DO Work Phone: [facility] 02-07-2025 14:53-0400 Body mass index (BMI) [Ratio] 44.17 kg/m2 Herman Murcek DO Work Phone: [facility] 02-07-2025 14:53-0400 Body weight 127.91 kg Herman Murcek DO Work Phone: [facility] 11-02-2024 09:01-0500 Body height 170.2 cm Herman Murcek DO Work Phone: [facility] 11-02-2024 09:01-0500 Body mass index (BMI) [Ratio] 44.32 kg/m2 Herman Murcek DO Work Phone: [facility] 11-02-2024 09:01-0500 Body weight 128.37 kg Herman Murcek DO Work Phone: [facility] 10-18-2024 14:58-0500 Body height 170.2 cm Herman Photowhoacek DO Work Phone: [facility] 10-18-2024 14:58-0500 Body mass index (BMI) [Ratio] 44.32 kg/m2 Herman Thomas DO Work Phone: [facility] 10-18-2024 14:58-0500 Body weight 128.37 kg Herman Thomas DO Work Phone: [facility] 10-11-2024 09:19-0500 Body height 167.64 cm Tuanjerad Hasa DO Work Phone: [facility] 10-11-2024 09:19-0500 Body mass index (BMI) [Ratio] 45.6 kg/m2 Tuan Ryans DO Work Phone: [facility] 10-11-2024 09:19-0500 Body weight 128.36 kg Tuan Daviss DO Work Phone: [facility] 10-11-2024 09:19-0500 Diastolic blood pressure 90 mm[Hg] Tuan Ryans DO Work Phone: [facility] 10-11-2024 09:19-0500 Heart rate 76 /min Tuan Daviss DO Work Phone: [facility] 10-11-2024 09:19-0500 Respiratory rate 16 /min Tuan Daviss DO Work Phone: [facility] 10-11-2024 09:19-0500 SaO2% (BldA) [Mass fraction] 99 % Tuanjerad Daviss DO Work Phone: [facility] 10-11-2024 09:19-0500 Systolic blood pressure 145 mm[Hg] Tuan Ryans DO Work Phone: [facility] 09-09-2024 14:50-0500 Body height 167.64 cm Tuan Daviss DO Work Phone: [facility] 09-09-2024 14:50-0500 Body mass index (BMI) [Ratio] 46 kg/m2 Tuan Daviss DO Work Phone: [facility] 09-09-2024 14:50-0500 Body temperature 98 [degF] Tuan Daviss DO Work Phone: [facility] 09-09-2024 14:50-0500 Body weight 129.27 kg Tuan Daviss DO Work Phone: [facility] 09-09-2024 14:50-0500 Diastolic blood pressure 82 mm[Hg] Tuan Daviss DO Work Phone: [facility] 09-09-2024 14:50-0500 Heart rate 88 /min Tuan Daviss DO Work Phone: [facility] 09-09-2024 14:50-0500 Respiratory rate 18 /min Tuan Daviss DO Work Phone: [facility] 09-09-2024 14:50-0500 Systolic blood pressure 128 mm[Hg] Tuan Daviss DO Work Phone: [facility] 08-04-2024 11:02-0500 Body height 167.64 cm Tuan Daviss DO Work Phone: [facility] 08-04-2024 11:02-0500 Body mass index (BMI) [Ratio] 45.5 kg/m2 Tuan Daviss DO Work Phone: [facility] 08-04-2024 11:02-0500 Body weight 127.91 kg Tuan Daviss DO Work Phone: [facility] 08-04-2024 11:02-0500 Diastolic blood pressure 100 mm[Hg] Tuan Daviss DO Work Phone: [facility] 08-04-2024 11:02-0500 Heart rate 79 /min Tuan Daviss DO Work Phone: [facility] 08-04-2024 11:02-0500 Respiratory rate 18 /min Tuan Daviss DO Work Phone: [facility] 08-04-2024 11:02-0500 SaO2% (BldA) [Mass fraction] 97 % Tuan Haas DO Work Phone: [facility] 08-04-2024 11:02-0500 Systolic blood pressure 145 mm[Hg] Tuan Haas DO Work Phone: [facility] 07-14-2024 12:15-0500 Hourly Rounding You Wilkerson [facility] Comment on above: Result Comment: verbal and written disch arge instructions given. pt verbalized understanding 07-14-2024 11:30-0500 Hourly Rounding You Wilkerson [facility] Comment on above: Result Comment: pt denies needs at this time 07-14-2024 10:30-0500 Hourly Rounding You Wilkerson [facility] Comment on above: Result Comment: pt denies needs 07-14-2024 09:31-0500 Blood Pressure Location You Wilkerson [facility] 07-14-2024 09:31-0500 Body temperature 98.06 [degF] You Wilkerson [facility] 07-14-2024 09:31-0500 Diastolic blood pressure 83 mm[Hg] You Wilkerson [facility] 07-14-2024 09:31-0500 Heart rate 93 /min You Wilkerson [facility] 07-14-2024 09:31-0500 Mean blood pressure 97 mm[Hg] You Wilkerson [facility] 07-14-2024 09:31-0500 Promise to Return You Wilkerson [facility] 07-14-2024 09:31-0500 Respiratory rate 16 /min You Wilkerson [facility] 07-14-2024 09:31-0500 SaO2% (BldA) [Mass fraction] 100 % You Wilkerson [facility] 07-14-2024 09:31-0500 Systolic blood pressure 126 mm[Hg] You Wilkerson [facility] 07-14-2024 08:30-0500 Promise to Return You Wilkerson [facility] 07-14-2024 07:30-0500 Promise to Return You Wilkerson [facility] 07-13-2024 19:59-0500 Heart rate 96 /min You Wilkerson [facility] 07-13-2024 19:59-0500 SaO2% (BldA) [Mass fraction] 97 % You Wilkerson [facility] 07-13-2024 19:57-0500 Body temperature 97.52 [degF] You Wilkerson [facility] 07-13-2024 19:57-0500 Diastolic blood pressure 82 mm[Hg] You Wilkerson [facility] 07-13-2024 19:57-0500 Mean blood pressure 94 mm[Hg] You Wilkerson [facility] 07-13-2024 19:57-0500 Systolic blood pressure 119 mm[Hg] You Wilkerson [facility] 07-13-2024 19:45-0500 Blood Pressure Location You Wilkerson [facility] 07-13-2024 19:45-0500 Respiratory rate 18 /min You Wilkerson [facility] 07-13-2024 15:36-0500 Blood Pressure Location You Wilkerson [facility] 07-13-2024 15:36-0500 Body temperature 98.42 [degF] You Wilkerson [facility] 07-13-2024 15:36-0500 Diastolic blood pressure 84 mm[Hg] You Wilkerson [facility] 07-13-2024 15:36-0500 Heart rate 87 /min You Wilkerson [facility] 07-13-2024 15:36-0500 Mean blood pressure 98 mm[Hg] You Wilkerson [facility] 07-13-2024 15:36-0500 Respiratory rate 18 /min You Wilkerson [facility] 07-13-2024 15:36-0500 Systolic blood pressure 125 mm[Hg] You Wilkerson [facility] 07-13-2024 11:10-0500 Mean blood pressure 111 mm[Hg] You Wilkerson [facility] 07-13-2024 11:10-0500 Respiratory rate 18 /min You Wilkerson [facility] 07-13-2024 07:36-0500 Body temperature 97.88 [degF] You Wilkerson [facility] 07-12-2024 19:14-0500 SaO2% (BldA) [Mass fraction] 96 % You Wilkerson [facility] 07-12-2024 19:12-0500 Body temperature 98.06 [degF] You Wilkerson [facility] 07-12-2024 19:11-0500 Mean blood pressure 107 mm[Hg] You Wilkerson [facility] 07-12-2024 17:46-0500 Mean blood pressure 95 mm[Hg] You Wilkerson [facility] 07-12-2024 12:17-0500 Body temperature 98.6 [degF] You Wilkerson [facility] 07-07-2024 14:05-0500 Hourly Rounding You Wilkerson [facility] Comment on above: Result Comment: monitors off; discharge instructions given with verbal understanding. 07-07-2024 12:52-0500 Diastolic blood pressure 80 mm[Hg] You Wilkerson [facility] 07-07-2024 12:52-0500 Heart rate 101 /min You Wilkerson [facility] 07-07-2024 12:52-0500 Mean blood pressure 95 mm[Hg] You Wilkerson [facility] 07-07-2024 12:52-0500 Respiratory rate 18 /min You Wilkerson [facility] 07-07-2024 12:52-0500 Systolic blood pressure 126 mm[Hg] You Wilkerson [facility] 12-03-2023 23:55-0400 Diastolic blood pressure 64 mm[Hg] Kaylinn Dokken [facility] 12-03-2023 23:55-0400 Heart rate 77 /min Kaylinn Dokken [facility] 12-03-2023 23:55-0400 Mean blood pressure 83 mm[Hg] Kaylinn Dokken [facility] 12-03-2023 23:55-0400 Respiratory rate 18 /min Stefanylinn Dokken [facility] 12-03-2023 23:55-0400 SaO2% (BldA) [Mass fraction] 98 % Kaylinn Dokken [facility] 12-03-2023 23:55-0400 Systolic blood pressure 120 mm[Hg] Kaylinn Dokken [facility] 12-03-2023 22:03-0400 Body temperature 98.06 [degF] Kaylinn Dokken [facility] 12-03-2023 22:03-0400 Diastolic blood pressure 90 mm[Hg] Kaylinn Dokken [facility] 12-03-2023 22:03-0400 Heart rate 74 /min Kaylinn Dokken [facility] 12-03-2023 22:03-0400 Respiratory rate 16 /min Stefanylinn Dokken [facility] 12-03-2023 22:03-0400 SaO2% (BldA) [Mass fraction] 100 % Christieinn Dokken [facility] 12-03-2023 22:03-0400 Systolic blood pressure 151 mm[Hg] Kaylinn Dokken [facility] 10-05-2023 07:47-0500 Body temperature 97.88 [degF] [facility] 10-05-2023 07:47-0500 Diastolic blood pressure 80 mm[Hg] [facility] 10-05-2023 07:47-0500 Heart rate 95 /min [facility] 10-05-2023 07:47-0500 Respiratory rate 20 /min [facility] 10-05-2023 07:47-0500 SaO2% (BldA) [Mass fraction] 95 % [facility] 10-05-2023 07:47-0500 Systolic blood pressure 133 mm[Hg] Jose Tovar [facility] 05-29-2023 09:45-0400 Hourly Rounding You Wilkerson [facility] Comment on above: Result Comment: pt discharged via wheelc hair to private vehicle for departure carried in carrier for departure 05-29-2023 09:15-0400 Hourly Rounding You Rhea [facility] Comment on above: Result Comment: pt packs up room at this time, support person in room assisting to call when ready for departure 05-29-2023 08:15-0400 Diastolic blood pressure 86 mm[Hg] You Wilkerson [facility] 05-29-2023 08:15-0400 Heart rate 76 /min You Rhea [facility] 05-29-2023 08:15-0400 Systolic blood pressure 131 mm[Hg] You Rhea [facility] 05-29-2023 08:07-0400 Heart rate 69 /min You Wilkerson [facility] 05-29-2023 08:07-0400 SaO2% (BldA) [Mass fraction] 97 % You Rhea [facility] 05-29-2023 08:07-0400 Diastolic blood pressure 92 mm[Hg] You Wilkerson [facility] 05-29-2023 08:07-0400 Mean blood pressure 110 mm[Hg] You Wilkerson [facility] 05-29-2023 08:07-0400 Systolic blood pressure 147 mm[Hg] You Wilkerson [facility] 05-29-2023 08:07-0400 Body temperature 98.24 [degF] You Wilkerson [facility] 05-29-2023 08:00-0400 Hourly Rounding You Wilkerson [facility] Comment on above: Result Comment: discharge instructions g iven to mother at this time mother states understanding and denies further needs or concerns pt aware to call when ready for discharge 05-28-2023 19:30-0400 Blood Pressure Location You Wilkerson [facility] 05-28-2023 19:30-0400 Body temperature 98.78 [degF] You Wilkerson [facility] 05-28-2023 19:30-0400 Diastolic blood pressure 82 mm[Hg] You Wilkerson [facility] 05-28-2023 19:30-0400 Heart rate 93 /min You Wilkerson [facility] 05-28-2023 19:30-0400 Mean blood pressure 101 mm[Hg] You Wilkerson [facility] 05-28-2023 19:30-0400 Systolic blood pressure 140 mm[Hg] You Wilkerson [facility] 05-28-2023 17:37-0400 Mean blood pressure 102 mm[Hg] You Wilkerson [facility] 05-28-2023 17:30-0400 Blood Pressure Location You Wilkerson [facility] 05-28-2023 17:30-0400 Body temperature 98.06 [degF] You Wilkerson [facility] 05-28-2023 17:30-0400 Respiratory rate 18 /min You Wilkerson [facility] 05-28-2023 14:51-0400 SaO2% (BldA) [Mass fraction] 97 % You Wilkerson [facility] 05-28-2023 14:50-0400 Mean blood pressure 110 mm[Hg] You Wilkerson [facility] 05-28-2023 14:45-0400 Blood Pressure Location You Wilkerson [facility] 05-28-2023 14:45-0400 Body temperature 98.24 [degF] You Wilkerson [facility] 05-28-2023 14:45-0400 Respiratory rate 18 /min You Wilkerson [facility] 05-28-2023 07:47-0400 SaO2% (BldA) [Mass fraction] 97 % You Wilkerson [facility] 05-28-2023 07:46-0400 Mean blood pressure 96 mm[Hg] You Wilkerson [facility] 05-27-2023 20:42-0400 Mean blood pressure 100 mm[Hg] You Wilkerson [facility] 05-27-2023 08:00-0400 Body temperature 98.06 [degF] You Wilkerson [facility] 05-27-2023 08:00-0400 Respiratory rate 18 /min You Wilkerson [facility] 05-26-2023 21:00-0400 Promise to Return You Wilkerson [facility] 05-26-2023 19:26-0400 Body temperature 97.88 [degF] You Wilkerson [facility] 05-26-2023 07:05-0400 Heart rate 110 /min You Wilkerson [facility] 05-18-2023 20:34-0400 Hourly Rounding You Wilkerson [facility] Comment on above: Result Comment: pt ambulates off unit w/ steady gait. 05-18-2023 20:31-0400 Hourly Rounding You Wilkerson [facility] Comment on above: Result Comment: discharge instructions g iven to pt, pt verbalizes understanding of all teaching and understands to go to morning appt. denies needs or questions. 05-18-2023 19:58-0400 Blood Pressure Location You Wilkerson [facility] 05-18-2023 19:58-0400 Body temperature 98.06 [degF] You Wilkerson [facility] 05-18-2023 19:58-0400 Diastolic blood pressure 69 mm[Hg] You Wilkerson [facility] 05-18-2023 19:58-0400 Heart rate 108 /min You Wilkerson [facility] 05-18-2023 19:58-0400 Mean blood pressure 84 mm[Hg] You Wilkerson [facility] 05-18-2023 19:58-0400 Respiratory rate 18 /min You Wilkerson [facility] 05-18-2023 19:58-0400 Systolic blood pressure 115 mm[Hg] You Wilkerson [facility] 05-18-2023 19:50-0400 Blood Pressure Location You Wilkerson [facility] 05-18-2023 19:50-0400 Diastolic blood pressure 91 mm[Hg] You Wilkerson [facility] 05-18-2023 19:50-0400 Hourly Rounding You Wilkerson [facility] Comment on above: Result Comment: pt arrives to unit and h ooked up to EFM. 05-18-2023 19:50-0400 Mean blood pressure 108 mm[Hg] You Wilkerson [facility] 05-18-2023 19:50-0400 Systolic blood pressure 141 mm[Hg] You Wilkerson [facility] 05-02-2023 16:55-0400 Hourly Rounding Russel MARIA INES [facility] Comment on above: Result Comment: discharged via wheelchai r to private car accompanied by nursing staff 05-02-2023 16:45-0400 Hourly Rounding Russel MARIA INES [facility] Comment on above: Result Comment: discharge instructions giovani bentley, questions answered and papers signed, up to bathroom to dress 05-02-2023 16:00-0400 Diastolic blood pressure 67 mm[Hg] Russel MARIA INES [facility] 05-02-2023 16:00-0400 Heart rate 114 /min Russel MARIA INES [facility] 05-02-2023 16:00-0400 Hourly Rounding Russel MARIA INES [facility] 05-02-2023 16:00-0400 Mean blood pressure 82 mm[Hg] Russel MARIA INES [facility] 05-02-2023 16:00-0400 Respiratory rate 18 /min Russel MARIA INES [facility] 05-02-2023 16:00-0400 Systolic blood pressure 112 mm[Hg] Russel MARIA INES [facility] 01-01-2023 12:28-0400 Blood Pressure Location Sylvia DiazHandInScan [facility] 01-01-2023 12:28-0400 Body temperature 97.52 [degF] Sylvia Orzech [facility] 01-01-2023 12:28-0400 Diastolic blood pressure 76 mm[Hg] Sylvia Orzech [facility] 01-01-2023 12:28-0400 Heart rate 79 /min Sylvia Orzech [facility] 01-01-2023 12:28-0400 SaO2% (BldA) [Mass fraction] 98 % Sylvia Orzech [facility] 01-01-2023 12:28-0400 Systolic blood pressure 124 mm[Hg] Sylvia Orzech [facility] 10-12-2022 10:11-0500 Body temperature 98.06 [degF] Juan Diego Hearn [facility] 10-12-2022 10:11-0500 Diastolic blood pressure 79 mm[Hg] Juan Diego Hearn [facility] 10-12-2022 10:11-0500 Heart rate 103 /min Juan Diego Hearn [facility] 10-12-2022 10:11-0500 Respiratory rate 18 /min Juan Diego Hearn [facility] 10-12-2022 10:11-0500 SaO2% (BldA) [Mass fraction] 97 % Juan Diego Hearn [facility] 10-12-2022 10:11-0500 Systolic blood pressure 126 mm[Hg] Juan Diegothaigo Hearn [facility] 09-16-2022 09:00-0500 Body height 167.64 cm Tuan Haas Other [employer] Other 09-16-2022 09:00-0500 Body mass index (BMI) [Ratio] 45.19 kg/m2 Tuan Haas Other [employer] Other 09-16-2022 09:00-0500 Body weight 127.01 kg Tuan Haas Other [employer] Other 09-16-2022 09:00-0500 Diastolic blood pressure 80 mm[Hg] Tuan Waldo Other [employer] Other 09-16-2022 09:00-0500 Respiratory rate 18 /min Tuan Davispercy Other [employer] Other 09-16-2022 09:00-0500 SaO2% (BldA) [Mass fraction] 95 % Tuan Davispercy Other [employer] Other 09-16-2022 09:00-0500 Systolic blood pressure 120 mm[Hg] Tuan Waldo Other [employer] Other 06-16-2022 16:29-0400 Diastolic blood pressure 72 mm[Hg] [facility] 06-16-2022 16:29-0400 Heart rate 102 /min [facility] 06-16-2022 16:29-0400 Respiratory rate 18 /min [facility] 06-16-2022 16:29-0400 SaO2% (BldA) [Mass fraction] 98 % [facility] 06-16-2022 16:29-0400 Systolic blood pressure 118 mm[Hg] [facility] 06-16-2022 14:32-0400 Body temperature 98.42 [degF] [facility] 06-16-2022 14:32-0400 Diastolic blood pressure 78 mm[Hg] [facility] 06-16-2022 14:32-0400 Heart rate 104 /min [facility] 06-16-2022 14:32-0400 Respiratory rate 18 /min [facility] 06-16-2022 14:32-0400 SaO2% (BldA) [Mass fraction] 100 % [facility] 06-16-2022 14:32-0400 Systolic blood pressure 125 mm[Hg] [facility] 06-13-2022 14:30-0400 Body height 167.64 cm Tuan Haas Other [facility] [employer] Other 04-03-2022 09:45-0400 Body height 167.64 cm Tuan Haas Other [employer] [facility] [employer] Other 04-03-2022 09:45-0400 Body mass index (BMI) [Ratio] 44.87 kg/m2 Tuan Haas Other [employer] Other 04-03-2022 09:45-0400 Body weight 126.1 kg Tuan Haas Other [employer] Other 04-03-2022 09:45-0400 Diastolic blood pressure 74 mm[Hg] Tuan Haas Other [employer] Other 04-03-2022 09:45-0400 Respiratory rate 18 /min Tuan Haas Other [employer] Other 04-03-2022 09:45-0400 SaO2% (BldA) [Mass fraction] 97 % Tuan Haas Other [employer] Other 04-03-2022 09:45-0400 Systolic blood pressure 108 mm[Hg] Tuan Haas Other [facility] [employer] Other 03-10-2022 22:35-0400 Hourly Rounding You Wilkerson [facility] Comment on above: Result Comment: patient discharged via w heelchair to pov 03-10-2022 22:35-0400 Hourly Rounding You Wilkerson [facility] Comment on above: Result Comment: all tissue from delivery packed for chromosomal studies and sealed for fedex tow picker. consent in package and scanned in chart 03-10-2022 22:05-0400 Hourly Rounding You Wilkerson [facility] Comment on above: Result Comment: selena consent signed. u p to shower, tolerated well 03-10-2022 22:00-0400 Diastolic blood pressure 81 mm[Hg] You Wilkerson [facility] 03-10-2022 22:00-0400 Heart rate 98 /min You Wilkerson [facility] 03-10-2022 22:00-0400 Mean blood pressure 98 mm[Hg] You Wilkerson [facility] 03-10-2022 22:00-0400 Respiratory rate 18 /min You Wilkerson [facility] 03-10-2022 22:00-0400 Systolic blood pressure 131 mm[Hg] You Wilkerson [facility] 03-10-2022 21:08-0400 Blood Pressure Location You Rhea [facility] 03-10-2022 21:08-0400 Diastolic blood pressure 63 mm[Hg] You Wilkerson [facility] 03-10-2022 21:08-0400 Heart rate 104 /min You Wilkerson [facility] 03-10-2022 21:08-0400 Mean blood pressure 83 mm[Hg] You Wilkerson [facility] 03-10-2022 21:08-0400 Respiratory rate 20 /min You Wilkerson [facility] 03-10-2022 21:08-0400 Systolic blood pressure 124 mm[Hg] You Wilkerson [facility] 03-10-2022 20:43-0400 Diastolic blood pressure 85 mm[Hg] You Wilkerson [facility] 03-10-2022 20:43-0400 Heart rate 107 /min You Wilkerson [facility] 03-10-2022 20:43-0400 Mean blood pressure 104 mm[Hg] You Wilkerson [facility] 03-10-2022 20:43-0400 Respiratory rate 20 /min You Wilkerson [facility] 03-10-2022 20:43-0400 Systolic blood pressure 141 mm[Hg] You Wilkerson [facility] 03-10-2022 20:15-0400 Body temperature 98.24 [degF] You Wilkerson [facility] 03-10-2022 15:25-0400 Body temperature 98.78 [degF] You Wilkerson [facility] 03-10-2022 15:25-0400 SaO2% (BldA) [Mass fraction] 97 % You Wilkerson [facility] 02-05-2022 21:44-0400 Diastolic blood pressure 51 mm[Hg] Iván Jennifer [facility] 02-05-2022 21:44-0400 Heart rate 119 /min Iván Jennifer [facility] 02-05-2022 21:44-0400 Mean blood pressure 66 mm[Hg] Iván Jennifer [facility] 02-05-2022 21:44-0400 Respiratory rate 16 /min Iván Jeninfer [facility] 02-05-2022 21:44-0400 SaO2% (BldA) [Mass fraction] 94 % Iván Jennifer [facility] 02-05-2022 21:44-0400 Systolic blood pressure 96 mm[Hg] Iván Jennifer [facility] 02-05-2022 20:26-0400 Diastolic blood pressure 54 mm[Hg] Iván Jennifer [facility] 02-05-2022 20:26-0400 Heart rate 123 /min Iván Jennifer [facility] 02-05-2022 20:26-0400 Mean blood pressure 73 mm[Hg] Iván Jennifer [facility] 02-05-2022 20:26-0400 Respiratory rate 16 /min Iván Jennifer [facility] 02-05-2022 20:26-0400 SaO2% (BldA) [Mass fraction] 99 % Iván Jennifer [facility] 02-05-2022 20:26-0400 Systolic blood pressure 112 mm[Hg] Iván Jennifer [facility] 02-05-2022 19:00-0400 Diastolic blood pressure 63 mm[Hg] Iván Jennifer [facility] 02-05-2022 19:00-0400 Heart rate 120 /min Iván Jennifer [facility] 02-05-2022 19:00-0400 Mean blood pressure 85 mm[Hg] Iván Jennifer [facility] 02-05-2022 19:00-0400 Systolic blood pressure 128 mm[Hg] Iván Jennifer [facility] 02-05-2022 18:22-0400 Body temperature 99.32 [degF] Iván Rodriguez [facility] 06-29-2021 09:30-0400 Body height 167.64 cm Tuan Haas Other [employer] [facility] [employer] Other 06-29-2021 09:30-0400 Body mass index (BMI) [Ratio] 43.45 kg/m2 Tuan Haas Other [employer] Other 06-29-2021 09:30-0400 Body weight 122.11 kg Tuan Haas Other [employer] Other 06-29-2021 09:30-0400 Diastolic blood pressure 76 mm[Hg] Tuan Haas Other [employer] Other 06-29-2021 09:30-0400 Respiratory rate 18 /min Tuan Haas Other [employer] Other 06-29-2021 09:30-0400 SaO2% (BldA) [Mass fraction] 97 % Tuan Haas Other [employer] Other 06-29-2021 09:30-0400 Systolic blood pressure 122 mm[Hg] Tuan Haas Other [employer] Other 06-28-2021 17:30-0400 Body height 167.64 cm Rosmery Camacho Other [employer] Other 06-28-2021 17:30-0400 Body mass index (BMI) [Ratio] 43.57 kg/m2 Rosmery Camacho Other [employer] Other 06-28-2021 17:30-0400 Body temperature 98.2 [degF] Rosmery Camacho Other [employer] Other 06-28-2021 17:30-0400 Body weight 122.47 kg Rosmery Camacho Other [employer] Other 06-28-2021 17:30-0400 Respiratory rate 18 /min Rosmery Camacho Other [employer] Other 06-28-2021 17:30-0400 SaO2% (BldA) [Mass fraction] 98 % Rosmery Camacho Other [employer] Other Encounters Encounter Date Encounter Type Care Provider Facility Start: 05-12-2025 End: 05-12-2025 ambulatory You Wilkerson Facility:[facility] [place] Start: 02-10-2025 End: 02-10-2025 ambulatory You Wilkerson Facility:[facility] [place] Start: 02-10-2025 End: 02-10-2025 Lab Drop off You Wilkerson [facility] Start: 02-07-2025 End: 02-07-2025 Office outpatient visit 25 minutes Herman Thomas DO Work Phone: [facility] Comment on above: Pain of right upper extremity (Primary Dx) Start: 02-07-2025 End: 02-07-2025 ambulatory HERMAN THOMAS Not Available Start: 02-07-2025 End: 02-07-2025 Bamboo flowsheet Herman Thomas DO Work Phone: [facility] Start: 02-07-2025 End: 02-07-2025 Bamboo flowsheet Herman Thomas DO Work Phone: [facility] Start: 11-02-2024 End: 11-02-2024 Bamboo flowsheet Herman Thomas DO Work Phone: [facility] Start: 11-02-2024 End: 11-02-2024 Bamboo flowsheet Herman Thomas DO Work Phone: [facility] Start: 11-02-2024 End: 11-02-2024 Postop follow up visit related to original px Herman Thomas DO Work Phone: [facility] Comment on above: Cervical adenopathy (Primary Dx) Start: 11-02-2024 End: 11-02-2024 ambulatory HERMAN THOMAS Not Available Start: 10-27-2024 End: 10-27-2024 ambulatory HERMAN THOMAS Not Available Start: 10-26-2024 End: 10-26-2024 ambulatory Tuan Haas Facility:[facility] Start: 10-19-2024 End: 10-19-2024 Patient encounter procedure Tuan Davispercy DO Work Phone: [facility] Work Phone: Start: 10-19-2024 End: 10-19-2024 ambulatory Tuan Haas DO Work Phone: [facility] Work Phone: Start: 10-19-2024 Encounter for preprocedural laboratory examination Herman Thomas [facility] Start: 10-19-2024 End: 10-19-2024 External Result Encounter Herman Thomas DO Work Phone: [facility] Unsolicited Start: 10-19-2024 End: 10-19-2024 External Result Encounter Herman Thomas DO Work Phone: [facility] Unsolicited Start: 10-18-2024 End: 10-18-2024 Office outpatient new 45 minutes Herman Thomas DO Work Phone: [facility] Comment on above: Cervical adenopathy (Primary Dx) Start: 10-18-2024 End: 10-18-2024 ambulatory HERMAN THOMAS Not Available Start: 10-18-2024 End: 10-18-2024 Bamboo flowsheet Herman Thomas DO Work Phone: [facility] Start: 10-18-2024 End: 10-18-2024 Bamboo flowsheet Herman Thomas DO Work Phone: [facility] Start: 10-11-2024 End: 10-11-2024 ambulatory Tuan Davispercy DO Work Phone: [facility] Work Phone: Start: 10-11-2024 End: 10-11-2024 Patient encounter procedure Tuan Haas DO Work Phone: [facility] Work Phone: Start: 09-09-2024 End: 09-09-2024 Departed Referred Tuan Haas DO Work Phone: [facility] [place] Work Phone: Start: 09-09-2024 End: 09-09-2024 ambulatory Tuan Haas DO Work Phone: [facility] Work Phone: Start: 09-09-2024 End: 09-09-2024 Patient encounter procedure Tuan Haas DO Work Phone: [facility] Work Phone: Start: 09-06-2024 End: 09-06-2024 Patient encounter procedure Tuan Haas DO Work Phone: [facility] [address] Work Phone: Start: 09-06-2024 End: 09-06-2024 ambulatory Tuan Haas DO Work Phone: [facility] Work Phone: Start: 08-04-2024 End: 08-04-2024 ambulatory Tuan Haas Facility:[facility] Start: 08-04-2024 End: 08-04-2024 Patient encounter procedure Tuan Haas DO Work Phone: [facility] [place] Work Phone: Start: 07-12-2024 End: 07-14-2024 Evaluation and management of inpatient You Wilkerson Facility:[facility] Start: 07-12-2024 End: 07-14-2024 Evaluation and management of inpatient You Wilkerson Facility:[facility] Start: 07-07-2024 End: 07-07-2024 ambulatory You Wilkerson Facility:[facility] Start: 07-07-2024 End: 07-07-2024 Patient encounter procedure You Wilkerson [facility] Start: 06-30-2024 End: 06-30-2024 ambulatory You Wilkerson Facility:[facility] Start: 06-30-2024 End: 06-30-2024 Lab Drop off You Wilkerson [facility] Start: 05-01-2024 End: 05-01-2024 ambulatory You Wilkerson Facility:[facility] Start: 05-01-2024 End: 05-01-2024 Patient encounter procedure You Wilkerson [facility] Start: 04-20-2024 End: 04-20-2024 Presleybofrank Lyons [employer] Work Phone: [facility] Start: 04-20-2024 End: 04-20-2024 Bamboo flowsheet Shemar A Felter [employer] Work Phone: [facility] Start: 04-20-2024 End: 04-20-2024 ambulatory SHEMAR A FELTER Not Available Start: 04-20-2024 End: 04-20-2024 Office outpatient visit 25 minutes Shemar A Felter [employer] Work Phone: [facility] Comment on above: Acne vulgaris; Other seborrheic dermatitis; Melanocytic nevus of scalp; Keratosis pilaris Start: 04-17-2024 End: 04-17-2024 ambulatory [facility] Facility:[facility] Start: 04-17-2024 End: 04-17-2024 Patient encounter procedure You Wilkerson [facility] Start: 03-23-2024 End: 03-23-2024 ambulatory [facility] Facility:[facility] Start: 03-23-2024 End: 03-23-2024 Patient encounter procedure You Greco Rhea [facility] Start: 03-15-2024 End: 03-15-2024 ambulatory [facility] Facility:[facility] Start: 03-15-2024 End: 03-15-2024 Lab Drop off You Wilkerson [facility] Start: 02-16-2024 End: 02-16-2024 ambulatory [facility] Facility:[facility] Start: 02-16-2024 End: 02-16-2024 Lab Drop off You Greco Rhea [facility] Start: 12-03-2023 End: 12-04-2023 Emergency department patient visit Melissa Yates [facility] Start: 12-03-2023 End: 12-03-2023 ambulatory You Wilkerson Facility:[facility] Start: 12-03-2023 End: 12-03-2023 Patient encounter procedure You Wilkerson [facility] Start: 10-05-2023 End: 10-05-2023 Emergency department patient visit Jose Tovar [facility] Start: 09-05-2023 End: 09-05-2023 ambulatory Tuan Haas Other [employer] Other Start: 09-05-2023 Telephone encounter Tuan Haas [facility] [place] Start: 07-22-2023 End: 07-22-2023 ambulatory Tuan Haas Other [employer] Other Start: 07-22-2023 Telephone encounter Tuan Haas [facility] [place] Start: 07-14-2023 End: 07-14-2023 ambulatory Tuan Haas Other [employer] Other Start: 07-14-2023 Telephone encounter Tuan Haas [facility] [place] Start: 07-07-2023 End: 07-07-2023 ambulatory You Wilkerson Facility:[facility] Start: 07-07-2023 End: 07-07-2023 Lab Drop off You Wilkerson [facility] Start: 06-27-2023 End: 06-27-2023 ambulatory Tuan Haas Other [employer] Other Start: 06-27-2023 Telephone encounter Tuan Haas [facility] [place] Start: 05-26-2023 End: 05-29-2023 Evaluation and management of inpatient You Wilkerson [facility] Start: 05-18-2023 End: 05-18-2023 ambulatory You Wilkerson Facility:[facility] Start: 05-18-2023 End: 05-18-2023 OB Triage You Wilkerson [facility] Start: 05-12-2023 End: 05-12-2023 ambulatory You Wilkerson Facility:[facility] Start: 05-02-2023 End: 05-02-2023 ambulatory Russel SPANN Facility:[facility] Start: 05-02-2023 End: 05-02-2023 OB Triage Russel SPANN [facility] Start: 03-14-2023 End: 03-14-2023 ambulatory You Wilkerson Facility:[facility] Start: 03-14-2023 End: 03-14-2023 Patient encounter procedure You Wilkerson [facility] Start: 01-01-2023 End: 01-01-2023 Patient encounter procedure Sylvia Rice [facility] Start: 10-21-2022 End: 10-21-2022 Lab Drop off You Wilkerson [facility] Start: 10-16-2022 End: 10-16-2022 ambulatory Tuan Haas Other [employer] Other Start: 10-16-2022 Telephone encounter Tuan Haas [facility] Start: 10-12-2022 End: 10-12-2022 Emergency department patient visit Juan Diego Hearn [facility] Start: 10-02-2022 End: 10-02-2022 Patient encounter procedure You Angus Rhea [facility] Start: 09-30-2022 End: 09-30-2022 Patient encounter procedure You Wilkerson [facility] Start: 09-16-2022 Office outpatient vi sit 25 minutes Tuan Haas [facility] [place] Start: 09-16-2022 End: 09-16-2022 ambulatory DO Tuan Haas Work Phone: [facility] Work Phone: Start: 09-16-2022 End: 09-16-2022 Patient encounter procedure DO Tuan Haas Work Phone: [facility] [place] Work Phone: Start: 06-25-2022 End: 06-25-2022 Patient encounter procedure You Wilkerson [facility] Start: 06-17-2022 End: 06-17-2022 ambulatory Tuan Haas Other [employer] Other Start: 06-17-2022 Telephone encounter Tuan Haas [facility] Start: 06-17-2022 End: 06-17-2022 Patient encounter procedure oYu Greco Rhea [facility] Start: 06-16-2022 End: 06-16-2022 Emergency department patient visit Jose Bella La [facility] Start: 06-13-2022 End: 06-13-2022 ambulatory Tuan Haas Other [employer] Other Start: 06-13-2022 Office outpatient vi sit 15 minutes Tuan Haas [facility] Start: 05-09-2022 End: 05-09-2022 ambulatory Tuan Ryanpercy Other [employer] Other Start: 05-09-2022 Telephone encounter Tuan Haas [facility] [place] Start: 04-04-2022 End: 04-04-2022 Patient encounter procedure DO Tuan Haas Work Phone: [facility] Start: 04-03-2022 End: 04-03-2022 ambulatory Tuan Ryanpercy Other [employer] Other Start: 04-03-2022 Office outpatient vi sit 25 minutes Tuan Haas [facility] Start: 03-20-2022 End: 03-20-2022 Patient encounter procedure You Wilkerson [facility] Start: 03-11-2022 End: 04-01-2022 Pre-admission assessment You Wilkerson [facility] Start: 03-10-2022 End: 03-10-2022 OB Triage You Wilkerson [facility] Start: 02-06-2022 End: 02-06-2022 ambulatory Tuan Ryanpercy Other [employer] Other Start: 02-06-2022 Telephone encounter Tuanjerad Haas [facility] Start: 02-05-2022 End: 02-05-2022 Emergency department patient visit Iván Rodriguez [facility] Start: 02-05-2022 End: 02-05-2022 ambulatory Tuan Haas Other [employer] Other Start: 02-05-2022 Telephone encounter Tuanjerad Haas [facility] [place] Start: 01-15-2022 End: 01-15-2022 Lab Drop off You Wilkerson [facility] Start: 01-14-2022 End: 01-14-2022 Patient encounter procedure You Wilkerson [facility] Start: 01-03-2022 End: 01-03-2022 Lab Drop off You Wilkerson [facility] Start: 11-01-2021 End: 11-01-2021 ambulatory Tuan Haas Other [employer] Other Start: 11-01-2021 Telephone encounter Tuanjerad Haas [facility] [place] Start: 10-31-2021 End: 10-31-2021 ambulatory Tuan Haas Other [employer] Other Start: 10-31-2021 Telephone encounter Tuanjerad Haas [facility] [place] Start: 10-29-2021 End: 10-29-2021 ambulatory Tuan Haas Other [employer] Other Start: 10-29-2021 Telephone encounter Tuanjerad Haas [facility] [place] Start: 09-11-2021 End: 09-11-2021 ambulatory Tuan Haas Other [employer] Other Start: 09-11-2021 Nursing evaluation o f patient and report Tuan Haas [facility] [place] Start: 09-11-2021 Telephone encounter Tuan Haas [facility] [place] Start: 07-04-2021 End: 11-03-2021 ambulatory Tuan Haas Other [facility] [employer] Other Start: 07-04-2021 Telephone encounter Tuan Haas [facility] Start: 07-02-2021 End: 07-02-[address] TUAN HAAS Facility: Start: 06-29-2021 Office outpatient vi sit 15 minutes Tuan Haas [facility] Start: 06-28-2021 (URG) Urgent Care Visit Rosmery montero [facility] [place] Start: 06-28-2021 Telephone encounter Tuan Haas [facility] [place] Procedures Date Procedure Procedure Detail Performing Clinician Start: 10-19-2024 Basic metabolic pane l calcium total Herman Carlsonreyesyong DO Work Phone: Start: 10-19-2024 Complete blood count with white cell differential, automated Herman Thomas DO Work Phone: Start: 09-09-2024 Aerobic microbial culture Tuan Haas DO Work Phone: Start: 09-09-2024 Anaerobic microbial culture Tuan Haas DO Work Phone: Start: 09-09-2024 Gram stain microscopy B rolando Haas DO Work Phone: Start: 09-06-2024 Computed tomography of soft tissues of neck without contrast Tuan Haas DO Work Phone: Start: 04-04-2022 Plain X-ray of right hand DO Tuan Haas Work Phone: Start: 04-04-2022 Plain X-ray of right wrist DO Tuan Haas Work Phone: Start: 07-17-2018 section You Wilkerson section You graves moles removed under local Ja se Wilkerson Plan of Treatment Date Care Activity Detail Author Start: 02-21-2025 End: 02-21-2025 Patient encounter procedure 02/21/2025 3:15 PM EDT Office Visit [facility] [address] [place] [address] Herman Thomas, DO [address] [place] [address] [facility] Start: 02-07-2025 End: 02-07-2025 Patient encounter procedure 02/07/2025 2:45 PM EDT Office Visit [facility] [address] [place] [address] Herman Thomas, DO [address] [place] [address] Arrived [facility] Comment on above: Arrived Start: 11-02-2024 End: 11-02-2024 Patient encounter procedure [facility] Comment on above: Arrived Start: 10-18-2024 End: 10-18-2024 Patient encounter procedure 10/18/2024 3:00 PM EST Office Visit [facility] [address] [place] [id number] Herman Thomas, DO [address] [place] [address] Arrived LENNIEPercy [facility]ENDON SID Comment on above: Arrived Start: 09-09-2024 [facility] Start: 09-09-2024 Aerobic Culture Aerobic Culture [facility] Start: 09-09-2024 Anaerobic Culture Anaerobic Culture [facility] Start: 09-09-2024 Microscopic observat ion [Identifier] in Unspecified specimen by Gram stain [facility] Start: 09-09-2024 Patient referral [facility] Work Phone: Start: 05-02-2024 Influenza [facility] B[facility] identified in Unspecified specimen by Aerobe culture [facility] Bacteria identified in Unspecified specimen by Anaerobe culture [facility] Patient referral [facility] Work Phone: [facility] Immunizations Immunization Date Immunization Notes Care Provider Mehreen ambrocio 05-27-2023 tetanus toxoid, reduced diphtheria toxoid, and acellular pertussis vaccine, adsorbed You Wilkerson [facility] Comment on above: Reason for Medicatio n: Other (see comment) 07-09-2019 influenza virus vaccine, unspecified formulation Sylvia Orzech [facility] 07-09-2019 influenza, injectable, quadrivalent, preservative free Herman Thomas DO Work Phone: [facility] 07-09-2019 tetanus toxoid, reduced diphtheria toxoid, and acellular pertussis vaccine, adsorbed [employer] [facility] 07-07-2019 influenza, seasonal, injectable Rosmery Janice Other [facility] 10-29-2016 tetanus toxoid, reduced diphtheria toxoid, and acellular pertussis vaccine, adsorbed You Wilkerson [facility] Comment on above: Reason for Medicatio n: Other (see comment) 11-06-2012 tetanus toxoid, reduced diphtheria toxoid, and acellular pertussis vaccine, adsorbed Rosmery Janice Other [facility] 05-05-2012 tetanus toxoid, reduced diphtheria toxoid, and acellular pertussis vaccine, adsorbed Rosmery Janice Other [facility] 04-22-2005 poliovirus vaccine, inactivated Rosmery Janice Other [employer] Other 04-22-2005 diphtheria, tetanus toxoids and acellular pertussis vaccine Rosmery Janice Other [employer] Other 04-22-2005 measles, mumps and rubella virus vaccine Rosmerymarielos Camacho Other [facility] 04-22-2005 diphtheria, tetanus toxoids and acellular pertussis vaccine, unspecified formulation Tuanjerad Davispercy DO Work Phone: [facility] 04-22-2005 DTaP, unspecified formulation Sylvia Orzech [facility] 04-22-2005 poliovirus vaccine, unspecified formulation Sylvia Orzech [facility] 09-25-2000 diphtheria, tetanus toxoids and acellular pertussis vaccine Rosmery Paulsonault Other [employer] Other 09-25-2000 haemophilus influenzae type b vaccine, PRP-OMP conjugate Rosmery Janice Other [facility] 09-25-2000 measles, mumps and rubella virus vaccine Rosmery Paulsonault Other [facility] 09-25-2000 diphtheria, tetanus toxoids and acellular pertussis vaccine, unspecified formulation Tuanjerad Davispercy DO Work Phone: [facility] 09-25-2000 DTaP, unspecified formulation Sylvia Orzech [facility] 09-25-2000 haemophilus influenzae type b vaccine, PRP-T conjugate [employer] [facility] 01-30-2000 hepatitis B vaccine, pediatric or pediatric/adolescent dosage Rosmery Janice Other [facility] 1999 poliovirus vaccine, inactivated Rosmery Janice Other [employer] Other 1999 diphtheria, tetanus toxoids and acellular pertussis vaccine Rosmery Janice Other [employer] Other 1999 haemophilus influenzae type b vaccine, PRP-OMP conjugate Rosmery Camacho Other [facility] 1999 diphtheria, tetanus toxoids and acellular pertussis vaccine, unspecified formulation Tuan Waldo DO Work Phone: [facility] 1999 DTaP, unspecified formulation Sylvia Orzech [facility] 1999 haemophilus influenzae type b vaccine, PRP-T conjugate Sylvia Orzech [facility] 1999 poliovirus vaccine, unspecified formulation Sylvia Orzech [facility] 1999 poliovirus vaccine, inactivated Rosmery Camacho Other [employer] Other 1999 diphtheria, tetanus toxoids and acellular pertussis vaccine Rosmery Camacho Other [employer] [facility] [place] Other 1999 haemophilus influenzae type b vaccine, PRP-OMP conjugate Rosmery Camacho Other [facility] 1999 hepatitis B vaccine, pediatric or pediatric/adolescent dosage Rosmery Camacho Other [facility] 1999 diphtheria, tetanus toxoids and acellular pertussis vaccine, unspecified formulation Tuan Waldo DO Work Phone: [facility] 1999 DTaP, unspecified formulation Sylvia Orzech [facility] 1999 haemophilus influenzae type b vaccine, PRP-T conjugate Sylvia Orzech [facility] 1999 poliovirus vaccine, unspecified formulation Sylvia Orzech [facility] 1999 diphtheria, tetanus toxoids and acellular pertussis vaccine Rosmery Camacho Other [employer] Other 1999 haemophilus influenzae type b vaccine, PRP-OMP conjugate Rosmery Camacho Other [facility] 1999 hepatitis B vaccine, pediatric or pediatric/adolescent dosage Rosmery Camacho Other [facility] 1999 poliovirus vaccine, inactivated Rosmery Camacho Other [employer] [facility] Other 1999 diphtheria, tetanus toxoids and acellular pertussis vaccine, unspecified formulation Tuanjerad Davispercy FLORES Work Phone: [facility] 1999 DTaP, unspecified formulation [employer] [facility] 1999 haemophilus influenzae type b vaccine, PRP-T conjugate [employer] [facility] 1999 poliovirus vaccine, unspecified formulation [employer] [facility] NEGATED: Highlighted row has not occurred!01-01-2023 influenza virus vaccine, unspecified formulation [employer] [facility] NEGATED: Highlighted row has not occurred!01-01-2023 SARS-CoV-2 mRNA (tozinameran 5y-11y) vaccine [employer] Orzech [facility] Payers Date Payer Category Payer Self-pay [id number] 2023 Private Health Insurance [id number] 2023 Unknown [employer] [id number] 2023-Present [address] [place] [address] [id number] 2023 Unknown [id number] 2.16.840.1.062770.19 2023 Medicaid [id number] 2023 Medicaid (Managed Care) [facility] MEDICAID [id number] 2022 Medicaid [id number] 1999 Unknown [id number] 2.16.840.1.743804.3.579.2 .593 1999 Unknown [id number] 2.16.840.1.711907.3.579.2 .727 1999 Unknown [id number] 2.16.840.1.974525.3.579.2 .727 1999 Unknown [id number] 2.16.840.1.210842.3.579.2 .727 1999 Unknown [id number] 2.16.840.1.005226.3.579.2 .727 1999 Unknown [id number] 2.16.840.1.990930.3.579.2 .72 1999 Unknown [id number] 2.16.840.1.799597.3.579.2 .72 1999 Unknown [id number] 2.16.840.1.506403.3.579.2 .1999 Unknown [id number] 2.16.840.1.862988.3.579.2 .1999 Unknown [id number] 2.16.840.1.686480.3.579.2 .1999 Unknown [id number] 2.16.840.1.028681.3.579.2 .1999 Unknown [id number] 2.16.840.1.689482.3.579.2 .1999 Unknown [id number] 2.16.840.1.110403.3.579.2 1999 Unknown [id number] 2.16.840.1.238539.3.579.2 .1999 Unknown [id number] 2.16.840.1.060845.3.579.2 1999 Unknown [id number] 2.16.840.1.484100.3.579.2 .1999 Unknown [id number] 2.16.840.1.247707.3.579.2 .1999 Unknown [id number] 2.16.840.1.902697.3.579.2 .1999 Unknown [id number] 2.16.840.1.285412.3.579.2 .1999 Unknown [id number] 2.16.840.1.200361.3.579.2 .1999 Unknown [id number] 2.16.840.1.417709.3.579.2 .1999 Unknown [id number] 2.16.840.1.944893.3.579.2 .727 1999 Unknown [id number] 2.16.840.1.171868.3.579.2 .727 1999 Unknown [id number] 2.16.840.1.920358.3.579.2 .727 1999 Unknown [id number] 2.16.840.1.494152.3.579.2 .9 1999 Unknown [id number] 2.16.840.1.769648.3.579.2 .1259 1999 Unknown [id number] 2.16.840.1.354746.3.579.2 .1258 1999 Unknown [id number] 2.16.840.1.290550.3.579.2 .1258 1999 Unknown [id number] 2.16.840.1.923981.3.579.2 .1258 1999 Unknown [id number] 2.16.840.1.732956.3.579.2 .727 1999 Unknown [id number] 2.16.840.1.924734.3.579.2 .727 1959 Unknown [id number] Department [facility] ( and others) [facility] [id number] Private Health Insurance [employer] [id number] Unknown [employer] [id number] Unknown [id number] 2.16.840.1.040412.3.579.2 .531 Unknown [id number] 2.16.840.1.970202.3.579.2 .531 Unknown [id number] 2.16.840.1.026465.3.579.2 .531 Unknown [id number] 2.16.840.1.316890.3.579.2 .531 Unknown [id number] 2.16.840.1.588022.3.579.2 .531 Social History Date Type Detail Facility Start: 04-28-2020 Tobacco smoking status Never [facility] Other Start: 04-20-2024 End: 02-07-2025 Sex Assigned At Female [facility] Other Start: 02-05-2022 End: 01-01-2023 Tobacco smoking status Never smoked tobacco (finding) [facility] Start: 1999 Sex Assigned At Female F [facility] Start: 09-23-2023 Tobacco use and exposure Smokeless tobacco non-user [facility] Start: 04-20-2024 End: 02-07-2025 Alcoholic beverage intake Lifetime non-drinker (finding) [facility] Start: 04-20-2024 End: 02-07-2025 History of Social function [facility] Start: 03-28-2023 Alcohol Comment Caffeine: none [facility] Start: 1999 Sex assigned at Not on file [facility] Start: 09-09-2011 End: 09-07-2024 Sex Female (finding) [facility] Sexual Orientation [facility] NEGATED: Highlighted row [facility] Functional Status Date Assessment Result Facility 07-12-2024 Functional Status No [facility] 07-07-2024 Functional Status N/A [facility] 12-03-2023 Functional Status N/A [facility] 10-05-2023 Functional Status N/A [facility] 05-26-2023 Functional Status No [facility] 05-18-2023 Functional Status N/A [facility] 05-02-2023 Functional Status N/A [facility] 01-01-2023 Functional Status N/A [facility] 10-12-2022 Functional Status N/A [facility] 06-16-2022 Functional Status N/A [facility] 03-10-2022 Functional Status N/A [facility] Clinical Notes 10-02-2016 to 02-07-2025 Herman Thomas, DO - 02/07/2025 2:45 PM EDTBendimitri Thomas, DO - 11/02/2024 9:00 AM ESTBestardimitri Thomas, DO - 10/18/2024 3:00 PM EST Note Date & Type Note Facility 02-07-2025 History of Present illness Narrative Subjective Patient ID: HPI Patient presents today with complaints of right shoulder and arm discomfort. This has been going on a couple of months. She is status post excision of a couple of large but benign right posterior triangle lymph nodes by myself back in October. Review of the chart and the op note shows no injury to the eleventh cranial nerve. Review of Systems ROS The specialty specific review of systems is noncontributory except for that recorded in the intake questionnaire and /or described in the history of present illness. Objective ENT Physical Exam Physical Exam Constitutional: Patient has full range of motion of the right shoulder able to easily raise her arm above and over her head. This does not elicit pain. There is no evidence of shoulder drop on the right. Appearance: Normal appearance. HENT: Head: Atraumatic. Ears: External ear shows no abnormality Bilateral ear canals are clear Tympanic membranes intact, no evidence of middle ear fluid or other pathology. Nose: External nose appears to be normal Nares patent. Septal deviation to the right No evidence of polyp, mass or pus bilaterally. Oral Cavity: No evidence of trismus Lips appear normal Dental good Tongue of normal size and configuration, floor of mouth mucosa clear. Buccal mucosa shows no evidence of ulceration, mass or other abnormality Hard palate soft palate mucosa intact with no evidence of mass, ulceration or other abnormality Uvula of normal size and configuration Oropharynx: Tonsils Posterior pharyngeal wall Neck: No evidence of palpable abnormality Thyroid without evidence of thyromegaly or mass. No cervical lymphadenopathy present. Cardiovascular: Rate and Rhythm: Normal rate and regular rhythm. . Skin: General: Skin is warm and dry. Neurological: General: No focal deficit present. Mental Status: alert and oriented to person, place, and time. Assessment/Plan Kassie was seen today for pain. Diagnoses and all orders for this visit: Pain of right upper extremity (Primary) Comments: Obviously what I am concerned about was the potential for 11th nerve injury on the right but that does not seem to be the case at all. She has a fair amount of subcutaneous adipose tissue making palpation difficult. I am going to CT her neck and upper chest making sure there is nothing such as lymphadenopathy I can not palpate. I will see her back following that documented in this encounter [facility] 11-02-2024 History of Present illness Narrative HPI Patient presents today status post excision of multiple enlarged right posterior cervical lymph nodes last week. Final pathology is that of reactive lymphadenopathy, testing including flow is all negative. I made the patient aware. She is doing fine. Relevant postoperative physical examination Right posterior neck incision intact and healing nicely. Assessment/plan Kassie was seen today for post-op. Diagnoses and all orders for this visit: Cervical adenopathy (Primary) Comments: I will see the patient back as needed documented in this encounter [facility] 10-18-2024 History of Present illness Narrative Allergies as of 10/18/2024 (No Known Allergies) Past Medical History: Diagnosis Date Acid reflux 10/01/2024 Acne Anemia 10/01/2024 Cervical adenopathy 10/01/2024 Enlarged lymph node in neck 10/01/2024 History of 10/01/2024 Mother currently breast-feeding Neck pain 10/01/2024 Obesity with body mass index 30 or greater 10/01/2024 child Recurrent boils 10/01/2024 Current Outpatient Medications: benzoyl peroxide 5 % gel, Apply to face once a day, in the evening 30 day supply, Disp: 60 g, Rfl: 11 clindamycin (Cleocin T) 1 % lotion, Apply thin later to affected areas on the body during flares, 30 day supply, Disp: 60 mL, Rfl: 11 fluocinonide (Lidex) 0.05 % external solution, Apply to affected areas on the scalp, up to once a day when flared, 30 day supply, Disp: 60 mL, Rfl: 11 MV-Min-Fe Fum-FA-DHA ( 1 PO), Take by mouth., Disp: , Rfl: No past surgical history on file. Social History Socioeconomic History Marital status: Unmarried Spouse name: Not on file Number of children: Not on file Years of education: Not on file Highest education level: Not on file Occupational History Not on file Tobacco Use Smoking status: Never Smokeless tobacco: Never Substance and Sexual Activity Alcohol use: Never Comment: Caffeine: none Drug use: Defer Sexual activity: Not on file Other Topics Concern Not on file Social History Narrative Not on file Social Drivers of Health Financial Resource Strain: Not on file Food Insecurity: Not on file Transportation Needs: Not on file Physical Activity: Not on file Stress: Not on file Social Connections: Not on file Intimate Partner Violence: Not on file Housing Stability: Not on file Subjective Patient ID: HPI Patient is a 24-year-old female referred for cervical lymphadenopathy. This all started back in July. She complained of nasal congestion, fullness feeling in her cheeks, etcetera. She was treated with a couple of rounds of antibiotics that did not seem to help. She noted a lymph node in the right posterior neck. Eventually CT scan was performed which was in September which I reviewed with her. It shows multiple enlarged lymph nodes in both cervical chains more so on the right than left. Nothing else is remarkable. Patient still has the palpable lymph node. In fact it has gotten larger. Review of Systems ROS The specialty specific review of systems is noncontributory except for that recorded in the intake questionnaire and /or described in the history of present illness. Objective ENT Physical Exam Physical Exam Constitutional: Appearance: Normal appearance. HENT: Head: Atraumatic. Ears: External ear shows no abnormality Bilateral ear canals are clear Tympanic membranes intact, no evidence of middle ear fluid or other pathology. Nose: External nose appears to be normal Nares patent. Septal deviation to the right No evidence of polyp, mass or pus bilaterally. Oral Cavity: No evidence of trismus Lips appear normal Dental good Tongue of normal size and configuration, floor of mouth mucosa clear. Buccal mucosa shows no evidence of ulceration, mass or other abnormality Hard palate soft palate mucosa intact with no evidence of mass, ulceration or other abnormality Uvula of normal size and configuration Oropharynx: Tonsils 1+ Posterior pharyngeal wall normal Neck: No evidence of palpable abnormality Thyroid without evidence of thyromegaly or mass. There are level 2 lymph nodes palpable bilaterally and a right posterior superior triangle lymph node palpable the probably measures a little over 2 cm in size. It is mobile but a little tender. Cardiovascular: Rate and Rhythm: Normal rate and regular rhythm. . Skin: General: Skin is warm and dry. Neurological: General: No focal deficit present. Mental Status: alert and oriented to person, place, and time. Assessment/Plan Kassie was seen today for swollen glands. Diagnoses and all orders for this visit: Cervical adenopathy (Primary) Comments: I discussed with the patient that given the length of this issue that we need to rule out malignancy. Additionally, with tissue we can rule out such things as sarcoidosis, non tuberculous granuloma, etcetera. I therefore recommended excising the right posterior cervical lymph node for diagnostic purposes. Risks and benefits were discussed including scarring, neurovascular injury, etcetera. Patient has consented to proceed. I will take care of that sometime in the near future. documented in this encounter [facility] 09-06-2024 Radiology Diagnostic study note [facility] [place] [address] [place] [address] CT Scan Report Signed Patient: Kassie Crawford MR#: [id number] : 2000 Acct:[id number] Age/Sex: 24 / F ADM Date: [facility] Attending Dr: Tuan Haas DO Copies to: Tuan Haas DO~ Ordering Provider: Tuan Haas DO Date of Service: 09/06/24 CT/CT soft tissue neck wo con: R59.0 - Localized enlarged lymph nodes CT soft tissue neck wo con 09/06/2024 3:00 PM SIGNS AND SYMPTOMS: ^R59.0 - Localized enlarged lymph nodes TECHNOLOGIST COMMENTS: TECHNIQUE: Multidetector CT axial slices of the soft tissues of the neck were obtained without IV contrast . Sagittal and coronal reformats were reconstructed. CT was performed with one or more of the following dose reductiontechniques: Automated exposure control, adjustment of the mA and/or kV accordingto patient size, or use of iterative reconstruction technique. COMPARISON: None FINDINGS: There are multiple enlarged right-sided level 2B level 3.There are few enlarged left level 2 level 3 lymph nodes. There is moderate adenoidal hypertrophy. Otherwise the remainder of the nasopharyngeal, oropharynx, hypopharynx, glottic,and subglottic regions are maintained The parotid glands, submandibular, and the thyroid gland are within normal limits.. The visualized lung parenchyma shows no acute pathology. No suspicious osseous lesions. CT/CT soft tissue neck wo con IMPRESSION: Nonspecific bilateral adenopathy, predominantly right-sided. No definite etiology identified on this examination. Differential considerations include infectious etiologies. Clinical Follow-up is strongly recommended following medical treatment course to document resolution such as an 1 month. If clinical follow-up cannot be obtained, consider CT follow-up. Impression dictated by: Evangelista Kenyon M.D.09/06/2024 4:55 PM Dictation Location: [facility]- Transcribed By: [facility] 09/06/241654 Dictated By: Evangelista Kenyon MD 09/06/24 1637 Signed By: 09/06/24 1655 [facility] Work Phone: 08-04-2024 Evaluation note Authored August 04, 2024 11:11am The above note written by Lucio CARPENTER acting as human recorder, note dictated by Dr. Tuan Haas. [facility] Work Phone: 1(208) 990-480012-04-2024 Evaluation note* Author [facility] Authored August 04, 2024 1 1:11am The above note written by Lucio CARPENTER acting as human recorder, note dictated by Dr. Tuan Haas. Author Cheyanne Rodriges [facility] Authored September 09, 2024 2: 50pm The above note written by Stefan Rodriges LPN, acting as human recorder, note dictated by Dr. Tuan Haas. [facility] Work Phone: 1(603) 356-424412-04-2024 Evaluation note* Author [facility] Authored August 04, 2024 1 1:11am The above note written by Lucio CARPENTER acting as human recorder, note dictated by Dr. Tuan Haas. Author Cheyanne Rodriges [facility] Authored September 09, 2024 2: 50pm The above note written by Stefan Rodriges LPN, acting as human recorder, note dictated by Dr. Tuan Haas. Author [facility] Authored October 11, 2024 9:39am The above note written by Lucio CARPENTER acting as human recorder, note dictated by Dr. Tuan Haas. [facility] Work Phone: 1(693) 824-766812-04-2024 NoteDischarge Summary DATE OF DISCHARGE: 07/14/2024 The patient is without complaints. Positive flatus. Positive void. Vital signs are stable, afebrile. Breasts ? non-tender, non-pathologic. Abdomen ? fundus firm and below the umbilicus. She has scantlochia. The perineum is intact. The patient is ready for release. Good instructions are given. The patient is to return to my office in six weeks. She is given the following prescriptions for her home use: Motrin and vitamins. DISCHARGE DIAGNOSIS: Vaginal delivery. Course: Complicated by previous history of section x2, previous vaginal after x2, macrosomia. Intrapartum Course: Spontaneous vaginal delivery, vaginal after section productive of an 8-pound 14-ounce female infant with Apgars of 9 and 9. A true knot was noted in the cord. Prioruterine scar was intact. Course: Without complication. You Wilkerson M.D. ca Dictated: 07/30/2024 [id number] Transcribed: 08/01/2024[facility] HospitalComment on above:Result Comment: Electronically Signed By: Rhea LAZARO, You Greco\.br\Date and Time Signed: 08/04/24 06:46 [id number] NoteProgress Note-Physician Patient: KASSIE CRAWFORD Age: 24 years Sex: Female : 2000 Associated Diagnoses: None Author: MD Mcarthur Ahmad F Postoperative Information Post Operative Note: Day 1, OPTIMETRIX : [id number]. Anesthetic utilized: Regional: Epidural. Health Status Allergies: Allergic Reactions (Selected) No Known Allergies Problem list: All Problems Acid reflux / SNOMED CT 3011955781 / Confirmed Age mother conceived under 17 / Patient Care / Confirmed Previous uterine scarring / Patient Care / Confirmed BMI 30+ - obesity / SNOMED CT 6046093432 / Confirmed History of / SNOMED CT 734779662 / Confirmed Resolved: / SNOMED CT 708223265 Resolved: Arthritis / SNOMED CT 8523675 Resolved: Yeast / SNOMED CT 885280275 Resolved: / SNOMED CT 882265297 Resolved: / SNOMED CT 977548381 Resolved: / SNOMED CT 358350137 Resolved: / SNOMED CT 377764224 Resolved: / SNOMED CT 582915587 Resolved: / SNOMED CT 149673166 Physical Examination No qualifying data available General: Alert and oriented, No acute distress. Neurologic: Normal sensory, Normal motor function, No focal deficits. Review / Management Condition: Stable. Assessment Anesthetic outcome No post-epidural complications noted.. Epidural catheter removed by nursing staff. Epidural tip intact. Epidural site C/D/I without erythema, swelling or tenderness.. Plan Transfer/ Discharge: Condition stable.[facility] HospitalComment on above:Result Comment: Electronically Signed By: MD Mcarthur Ahmad F\.br\Date and Time Signed: 07/26/24 10:51 [id number] NoteProgress Note-Physician Patient: KASSIE CRAWFORD Age: 24 years Sex: Female : 2000 Associated Diagnoses: None Author: MD Mcarthur Ahmad F Chief Complaint Intrauterine Health Status Allergies: Allergic Reactions (All) No Known Allergies Current medications.Problem list: All Problems Acid reflux / SNOMED CT 8938298683 / Confirmed Age mother conceived under 17 / Patient Care / Confirmed Previous uterine scarring / Patient Care / Confirmed BMI 30+ - obesity / SNOMED CT 9929674793 / Confirmed History of / SNOMED CT 667536705 / Confirmed Resolved: / SNOMED CT 041875063 Resolved: Arthritis / SNOMED CT 3307494 Resolved: Yeast / SNOMED CT 640726387 Resolved: / SNOMED CT 281345594 Resolved: / SNOMED CT 028582938 Resolved: / SNOMED CT 834860248 Resolved: / SNOMED CT 727027185 Resolved: / SNOMED CT 718873386 Resolved: / SNOMED CT 357612129 Review of Systems Respiratory: Negative. Cardiovascular: Negative. Hematology/Lymphatics: No bruising tendency, No bleeding tendency. Neurologic: Negative. Physical Examination Please see VS flowsheet Please refer to Labor floor nursing records for ongoing vital signs, and for intake and output totals while epidural was running. General: Alert and oriented. Respiratory: Lungs are clear to auscultation. Cardiovascular: Regular rhythm. Neurologic: Alert. Review / Management Differential diagnosis: Active labor. OB Results Review Impression and Plan Plan Labor epidural at request of patient.. Procedure Epidural injection procedure Date/ Time: 07/12/2024 09:00:00. Confirmed: patient, procedure, site, safety procedures followed. Performed by: MD Blue, Chandu Rogers Informed consent: signed by patient. Indication: Active labor.. Location: lumbar. Physical Exam: Mallampati class 2 (soft palate, fauces, uvula visible), vital signs Documented vital signs. Preparation and technique: informed consent obtained (from patient before the procedure), positioned (sitting) sitting upright, sterile preparation of site (patient's back was sterilly prepped and draped) (in usual fashion, with 10 % povidone iodine, draped to expose affected area), local anesthesia (1% lidocaine was applied to the patient's back before the epidural was attempted) (lidocaine without epinephrine, _1_ cc injected subcutaneously), approach (midline) midline, needle (17 ga poliuhy) (placed via loss of resistance technique, At _L4- L5_ interspace.), aspiration (attempted for blood and CSF) Aspiration negative for blood and CSF, injectant (test dose consisting of 3 ml of 1.5% lodocaine with 1:200,000 epi) (test dose given, Epidural catheter inserted and secured at a depth of _11_ cm at skin., Test dose negative). [place] Society of Anesthesiologists (ASA) physical status classification: Class II. Procedure tolerated: well. Complications: None. Professional Services Medications Administered: Epidural Medications Administered: Bolus dose consisted of 9 ml of 0.2% Ropivicaine, and 100 mcg of fentanyl (2 ml) . Then an epidural mix of 0.2% Ropivicaine, , and 2 mcg/ml of fentanyl was administered at 10 ml/hour with a PCEA bolus dose of 5cc q30min PRN.[facility] Comment on above:Result Comment: Electronically Signed By: MD Blue, Chandu Kahn\.br\Date and Time Signed: 07/26/24 10:50 [id number] NoteHistory and Physical HOSPITAL REGULATIONS: All Positive and Important Negative Findings Shall Be Recorded DATE ADMITTED: 07/12/2024 INTERVAL NOTE ADMITTING DIAGNOSES: Intrauterine , 38 weeks gestation, advanced dilatation, previous history of section x2. HISTORY OF PRESENT ILLNESS: The patient is a 24-year-old 7, para 4 white female who presented to Labor and Delivery at 38 weeks and 4/7. Her course has been complicated by previous history of section x2, previous vaginal after section x2. The patient desiredvaginal after . course had been complicated by need for minidose aspirin, need for increased rest with increased fluid retention and with her advanced dilatation and previous uterine incision, it was felt that she was a major risk for unsupervised delivery on the outside. Please see records for details. You Wilkerson M.D. herrera Dictated: 07/14/2024 [id number] Transcribed: 07/14/2024[facility] HospitalComment on above:Result Comment: Electronically Signed By: You Wilkerson MD\.br\Date and Time Signed: 07/16/24 08:54 [id number] NoteDischarge Instructions Given Worsening The following Patient Education Materials have been given to the patient: ~~ [facility] Evaluation + Plan note Extracted from: Title:OB Inpatient Progress note Auth or:You Wilkerson MD Date:07/13/24 Impression and Plan Plan Routine care. Course: Progressing as expected. [facility] [id number] NoteProgress Note-Physician Patient: KASSIE CRAWFORD Age: 24 years Sex: Female : 2000 Associated Diagnoses: None Author: You Wilkerson MD Chief Complaint patient without major complaints Physical Examination Vital Signs 07/12/2024 19:14 EST Heart Rate Monitored 91 bpm 07/12/2024 19:12 EST Temperature Axillary 36.7 DegC 07/12/2024 19:11 EST Systolic Blood Pressure 148 mmHg HI Diastolic Blood Pressure 87 mmHg 07/12/2024 19:00 EST Respiratory Rate 18 br/min Breast: No mass, No tenderness. Exam: Uterus: Symmetric, firm and below the umbillicus, firm and below the umbillicus, normal lochia, normal lochia. Musculoskeletal extremities nontender. extremities nontender. Impression and Plan Plan Routine care. Course: Progressing as expected.[facility] HospitalComment on above: Result Comment: Electronically Signed By: You Wilkerson MD\.br\Date and Time Signed: 07/13/24 08:29 [id number] NoteGetWell Learning Participants Patient GetWell Understands Education Yes GetWell Education Video How to Swaddle SafelyMer[facility]11-11-2024 NoteGetWell Understands Education Yes GetWell Education Video Caring for Yourself After Vaginal Delivery GetWell Learning Participants [facility]11-11-2024 NoteGetWell Learning Participants Patient GetWell Understands Education Yes GetWell Education Video Caring for Your [place]: Umbilical CordMercy Health [facility] Hospital11-11-2024 NoteGetWell Learning Participants Patient GetWell Understands Education Yes GetWell Education Video Caring for Your [place]: SleepingMercy Health [facility] Hospital11-11-2024 Note GetWell Education Video Bathing Your Baby GetWell Learning Participants Patient GetWell Understands Education [facility]11-11-2024 NoteGetWell Understands Education Yes GetWell Education Video Caring for Your : Feeding GetWell Learning Participants [facility]11-11-2024 NoteGetWell Learning Participants Patient GetWell Understands Education Yes GetWell Education Video Caring for Your [place]: DiapersMer[facility]11-11-2024 Note GetWell Education Video CPR GetWell Learning Participants Patient GetWell Understands Education [facility]11-11-2024 NoteGetWell Understands Education Yes GetWell Education Video Using a Rubber Bulb to Clear a Baby's Nose GetWell Learning Participants [facility]11-11-2024 NoteGetWell Understands Education Yes GetWell Education Video Jaundice in Newborns [employer] Learning Participants [facility]11-11-2024 NoteGetWell Education Video Here's Help: When Your Is Sick GetWell Learning Participants Patient GetWell Understands Education [facility]11-11-2024 NoteGetWell Understands Education GetWell Education Video After Your : The First 12 Weeks GetWell Learning [facility]11-11-2024 NoteGetWell Learning Participants GetWell Understands Education GetWell Education Video Understanding DepressionMercy Health [facility] Hospital11-11-2024 Note GetWell Learning Participants Patient GetWell Understands Education Yes GetWell Education Video How to Calm a Crying BabyMercy Health [facility] Hospital11-11-2024 NoteGetWell Education Video Avoiding Infections in the Hospital GetWell Learning Participants Patient GetWell Understands Education [facility]11-11-2024 NoteGetWell Understands Education Yes GetWell Education Video Well-Baby Visits to the Doctor GetCesario Learning Participants [facility]11-08-2024 Hospital Discharge instructions Follow Up Care 07/09/2024 11:21:21 With:Dr. Wilkerson [phone] Address:Unknown When:6 weeks Comments:Call for any problems.Call Dr if fever>100.5 F, heavy bleedingCall today to schedule your followupLactation Support Group first Friday of the Nothing in the vagina for 6 weeks [facility] 11-06-2024 Hospital Discharge instructions Follow Up Care 07/07/2024 12:27:48 With:Your Doctor at [facility] [phone] Address:Unknown When:07/12/2024 06:30:00 Comments:Call for any problems.CALL OB DEPT @ [phone] FRIDAY MORNING TO ASSURE BED AVAILABILITY [facility] 11-06-2024 NoteDischarge Instructions Given Worsening The following Patient Education Materials have been given to the patient: ~~ EducationMaterialAff[facility] Health Partnerser [facility] Evaluation + Plan note Diagnostic Tests Pending * Urine Culture 07/07/24 [facility] 10-30-2024 Evaluation + Plan note Diagnostic Tests Pending * Group B Streptococcus colonization by PCR 06/30/24 [facility] 08-20-2024 History of Present illness Narrative* Shemar Monique Lyons, [employer] - 04/20/2024 1:25 PM EDT Images from the original note were not included. Follow up Diagnosis: Acne Location: face Last visit: 09/11/2023 Symptoms: increase in oil production Status: inadequately controlled Current treatment: Clindamycin Phosphate 1% lotion, wants different treatment Follow up Diagnosis: Seborrheic Dermatitis Location: Scalp Last visit: 09/11/2023 Symptoms: itchy, flaky Status: same Current treatment: Ketoconazole2% shampoo prescribed, patient did not like this treatment and wantsalternative treatment. Lesions: Location: scalp Duration: 1-2 years Quality: painful, itchy, bleeding if picked Associated symptoms: non-healing Lesions: Location: upper arms Duration: months Quality: white bumps Associated symptoms: rough Treatments: none Established patient Patient is currently . Due July 12, 2024, planning to breastfeed afterward Established patient All pertinent medical history, medications, and allergies were reviewed. General Exam: alert , oriented to person, place, and time , normal affect, well appearing Unaccompanied A focused exam completed based on patient reported problems, see below: 1. Acne vulgaris Head - Anterior (Face) Mild acneiform eruption Discontinue Clindamycin lotion. Start BPO 5% gel daily as tolerated. Follow up when is complete if acne is not well controlled. benzoyl peroxide 5 % gel - Head - Anterior (Face) Apply to face once a day, in the evening 30 day supply Related Medications clindamycin (Cleocin T) 1 % lotion Apply thin later to affected areas on the body during flares, 30 day supply 2. Other seborrheic dermatitis Scalp Mild scale Discussed that seborrheic dermatitis is a chronic condition that can be controlled but not cured. Start Fluocinonide Solution once a day as needed for itching. Notify office if flaring despite treatment. Related Medications fluocinonide (Lidex) 0.05 % external solution Apply to affected areas on the scalp, up to once a day when flared, 30 day supply 3. Melanocytic nevus of scalp Mid Frontal Scalp Mildly erythematous papule with no suspicious features. Counseling and reassurance given. Instructed to discontinue picking. 4. Keratosis pilaris (2) Left Upper Arm - Anterior, Right Upper Arm - Anterior Hyperkeratotic papules. Instructed to start Cetaphil KP Kit. Literature given to patient. Next Visit: PRN documented in this encounterChristian [id number] Evaluation + Plan note Diagnostic Tests Pending * RPR with Conf Rfx 04/17/24 * Rubella Antibody IgG 04/17/24 * Urine Culture 04/17/24 * Hepatitis B Surface Antigen 04/17/24 [facility] 07-23-2024 Evaluation + Plan note Diagnostic Tests Pending * RPR with Conf Rfx 03/23/24 * Rubella Antibody IgG 03/23/24 * Hepatitis B Surface Antigen 03/23/24 [facility]06-17-2024 Evaluation + Plan note Diagnostic Tests Pending * Urine Culture 02/16/24 [facility]04-04-2024 Evaluation + Plan noteExtracted from: Title:ED Note Author:Melissa Yates DO Date :12/04/23 Migraine (G43.909: Migraine, unspecified, not intractable, without status migrainosus) N&V (nausea and vomiting) (R11.2: Nausea with vomiting, unspecified) Orders: acetaminophen + Generic Diluent 100 mL, 1,000 mg = 100 mL, Soln-IV, IV Piggyback, Once, Stop date 12/03/23 22:19:00 EDT, STAT, Start date 12/03/23 22:19:00 EDT, 400 mL/hr, Infuse over 15 minute(s) metoclopramide, 10 mg = 2 mL, Injection, IV Push, Once, Stop date 12/03/23 22:19:00 EDT, STAT, Start date 12/03/23 22:19:00 EDT, 12/03/23 22:19:00 EDT metoclopramide, 10 mg = 1 tab(s), Oral, q6hr, # 12 tab(s), Refills(s) 0, Pharmacy[place] [facility] [id number], 170, cm, 12/03/23 22:08:00 EDT, Height/Length Dosing, 134.5, kg, 12/03/23 22:08:00 EDT, Weight Dosing Sodium Chloride 0.9% intravenous solution 1,000 mL, 1,000 mL, IV, 983.61 mL/hr, for 30 day(s), Stop date 01/02/24 22:18:00 EDT, STAT, Start date 12/03/23 22:19:00 EDT, 61 minute(s), Total volume (mL): 1,000, 134.5 kg, 2.52, m2 [facility]04-04-2024 Hospital Discharge instructions Patient Education 12/04/2023 00:16:48 Migraine Headache, Umbs-sy-Njgv Migraine Headache A migraine headache is a very strong throbbing pain on one side or both sides of your head. This type of headache can also cause other symptoms. It can last from 4 hours to 3 days. Talk with your doctor about what things may bring on (trigger) this condition. What are the causes? The exact cause of this condition is not known. This condition may be triggered or caused by: Drinking alcohol. Smoking. Taking medicines, such as: ?Medicine used to treat chest pain (nitroglycerin). ? control pills. ?Estrogen. ?Some blood pressure medicines. Eating or drinking certain products. Doing physical activity. Other things that may trigger a migraine headache include: Having a menstrual period. . Hunger. Stress. Not getting enough sleep or getting too much sleep. Weather changes. Tiredness (fatigue). What increases the risk? Being [age] years old. Being female. Having a family history of migraine headaches. Being . Having depression or anxiety. Being very overweight. What are the signs or symptoms? A throbbing pain. This pain may: ?Happen in any area of the head, such as on one side or both sides. ?Make it hard to do daily activities. ?Get worse with physical activity. ?Get worse around bright lights or loud noises. Other symptoms may include: ?Feeling sick to your stomach (nauseous). ?Vomiting. ?Dizziness. ?Being sensitive to bright lights, loud noises, or smells. Before you get a migraine headache, you may get warning signs (an aura). An aura may include: ?Seeing flashing lights or having blind spots. ?Seeing bright spots, halos, or zigzag lines. ?Having tunnel vision or blurred vision. ?Having numbness or a tingling feeling. ?Having trouble talking. ?Having weak muscles. Some people have symptoms after a migraine headache (postdromal phase), such as: ?Tiredness. ?Trouble thinking (concentrating). How is this treated? Taking medicines that: ?Relieve pain. ?Relieve the feeling of being sick to your stomach. ?Prevent migraine headaches. Treatment may also include: ?Having acupuncture. ?Avoiding foods that bring on migraine headaches. ?Learning ways to control your body functions (biofeedback). ?Therapy to help you know and deal with negative thoughts (cognitive behavioral therapy). Follow these instructions at home: Medicines Take vlrr-bcd-lwyqmuz and prescription medicines only as told by your doctor. Ask your doctor if the medicine prescribed to you: ?Requires you to avoid driving or using heavy machinery. ?Can cause trouble pooping (constipation). You may need to take these steps to prevent or treat trouble pooping: ?Drink enough fluid to keep your pee (urine) pale yellow. ?Take gqkn-ouw-uhlocuw or prescription medicines. ?Eat foods that are high in fiber. These include beans, whole grains, and fresh fruits and vegetables. ?Limit foods that are high in fat and sugar. These include fried or sweet foods. Lifestyle Do not drink alcohol. Do not use any products that contain nicotine or tobacco, such as cigarettes, e- cigarettes, and chewing tobacco. If you need help quitting, ask your doctor. Get at least 8 hours of sleep every night. Limit and deal with stress. General instructions Keep a journal to find out what may bring on your migraine headaches. For example, write down: ?What you eat and drink. ?How much sleep you get. ?Any change in what you eat or drink. ?Any change in your medicines. If you have a migraine headache: ?Avoid things that make your symptoms worse, such as bright lights. ?It may help to lie down in a dark, quiet room. ?Do not drive or use heavy machinery. ?Ask your doctor what activities are safe for you. Keep all follow-up visits as told by your doctor. This is important. Contact a doctor if: You get a migraine headache that is different or worse than others you have had. You have more than 15 headache days in one month. Get help right away if: Your migraine headache gets very bad. Your migraine headache lasts longer than 72 hours. You have a fever. You have a stiff neck. You have trouble seeing. Your muscles feel weak or like you cannot control them. You start to lose your balance a lot. You start to have trouble walking. You pass out (faint). You have a seizure. Summary A migraine headache is a very strong throbbing pain on one side or both sides of your head. These headaches can also cause other symptoms. This condition may be treated with medicines and changes to your lifestyle. Keep a journal to find out what may bring on your migraine headaches. Contact a doctor if you get a migraine headache that is different or worse than others you have had. Contact your doctor if you have more than 15 headache days in a month. This information is not intended to replace advice given to you by your health care provider. Make sure you discuss any questions you have with your health care provider. Document Revised: 12/10/2019 Document Reviewed: 09/30/2019 [employer] Patient Education 2022 [employer] 12/04/2023 00:16:48 Nausea and Vomiting, Adult, Xxfo-hi-Dcbh Nausea and Vomiting, Adult Nausea is feeling that you have an upset stomach and that you are about to vomit. Vomiting is when food in your stomach forcefully comes out of your mouth. Vomiting can make you feel weak. If you vomit, or if you are not able to drink enough fluids, you may not have enough water in your body (get dehydrated). If you do not have enough water in your body, you may: Feel tired. Feel thirsty. Have a dry mouth. Have cracked lips. Pee (urinate) less often. Older adults and people with other diseases or a weak body defense system (immune system) are at higher risk for not having enough water in the body. If you feel like you may vomit or you vomit, it is important to follow instructions from your doctor about how to take care of yourself. Follow these instructions at home: Watch your symptoms for any changes. Tell your doctor about them. Eating and drinking Take an ORS (oral rehydration solution). This is a drink that is sold at pharmacies and stores. Drink clear fluids in small amounts as you are able, such as: ?Water. ?Ice chips. ?Fruit juice that has water added (diluted fruit juice). ?Low-calorie sports drinks. Eat bland, klhj-tx-qeqfhc foods in small amounts as you are able, such as: ?Bananas. ?Applesauce. ?Rice. ?Low-fat (lean) meats. ?Krupp. ?Crackers. Avoid drinking fluids that have a lot of sugar or caffeine in them. This includes energy drinks, sports drinks, and soda. Avoid alcohol. Avoid spicy or fatty foods. General instructions Take tcta-yny-uytdfid and prescription medicines only as told by your doctor. Drink enough fluid to keep your pee (urine) pale yellow. Wash your hands often with soap and water for at least 20 seconds. If you cannot use soap and water, use hand ice cream machine operator. Make sure that everyone in your home washes their hands well and often. Rest at home until you feel better. Watch your condition for any changes. Take slow and deep breaths when you feel like you may vomit. Keep all follow-up visits. Contact a doctor if: Your symptoms get worse. You have new symptoms. You have a fever. You cannot drink fluids without vomiting. You feel like you may vomit for more than 2 days. You feel light-headed or dizzy. You have a headache. You have muscle cramps. You have a rash. You have pain while peeing. Get help right away if: You have pain in your chest, neck, arm, or jaw. You feel very weak or you faint. You vomit again and again. You have vomit that is bright red or looks like black coffee grounds. You have bloody or black poop (stools) or poop that looks like tar. You have a very bad headache, a stiff neck, or both. You have very bad pain, cramping, or bloating in your belly (abdomen). You have trouble breathing. You are breathing very quickly. Your heart is beating very quickly. Your skin feels cold and clammy. You feel confused. You have signs of losing too much water in your body, such as: ?Dark pee, very little pee, or no pee. ?Cracked lips. ?Dry mouth. ?Sunken eyes. ?Sleepiness. ?Weakness. These symptoms may be an emergency. Get help right away. Call 911. Do not wait to see if the symptoms will go away. Do not drive yourself to the hospital. Summary Nausea is feeling that you have an upset stomach and that you are about to vomit. Vomiting is when food in your stomach comes out of your mouth. Follow instructions from your doctor about eating and drinking. Take dnpr-iqh-eaxcrpn and prescription medicines only as told by your doctor. Contact your doctor if your symptoms get worse or you have new symptoms. Keep all follow-up visits. This information is not intended to replace advice given to you by your health care provider. Make sure you discuss any questions you have with your health care provider. Document Revised: 02/22/2022 Document Reviewed: 02/22/2022 [employer] Patient Education 2022 [employer]. Follow Up Care 12/03/2023 22:01:10 With:TUAN HAAS Address: [address] [place], [place] [address] Business (1) When:12/06/2023 Comments:You can use the Reglan every 8 hours as needed for nausea or vomiting or headache. Please follow-upwith your primary care doctor next 2 to 3 days for further evaluation and management. Return to theED for any new or worsening symptoms. [facility]02-04-2024 Evaluation + Plan noteExtracted from: Title:ED Note Author:Jose Tovar M.D. te:10/05/23 1. Diarrhea (R19.7: Diarrhea , unspecified) 2. Dysuria (R30.0: Dysuria) Orders: Clostridium difficile by PCR Clostridium Difficile PCR Enteric Panel by PCR U Beta Hcg Qual UA With Cult Reflex [facility]02-04-2024 Hospital Discharge instructions Patient Education 10/05/2023 10:51:58 Food Choices to Help Relieve Diarrhea, Adult Food Choices to Help Relieve Diarrhea, Adult Diarrhea can make you feel weak and cause you to become dehydrated. It is important to choose the right foods and drinks to: Relieve diarrhea. Replace lost fluids and nutrients. Prevent dehydration. What are tips for following this plan? Relieving diarrhea Avoid foods that make your diarrhea worse. These may include: ?Foods and beverages sweetened with high-fructose corn syrup, honey, or sweeteners such as xylitol,sorbitol, and mannitol. ?Fried, greasy, or spicy foods. ?Raw fruits and vegetables. Eat foods that are rich in probiotics. These include foods such as yogurt and fermented milk products. Probiotics can help increase healthy bacteria in your stomach and intestines (gastrointestinal tract or GI tract). This may help digestion and stop diarrhea. If you have lactose intolerance, avoid dairy products. These may make your diarrhea worse. Take medicine to help stop diarrhea only as told by your health care provider. Replacing nutrients Eat bland, cbqw-xa-pqxbwq foods in small amounts as you are able, until your diarrhea starts to getbetter. These foods include bananas, applesauce, rice, toast, and crackers. Gradually reintroduce nutrient-rich foods as tolerated or as told by your health care provider. This includes: ?Well-cooked protein foods, such as eggs, lean meats like fish or chicken without skin, and tofu. ?Peeled, seeded, and soft-cooked fruits and vegetables. ?Low-fat dairy products. ?Whole grains. Take vitamin and mineral supplements as told by your health care provider. Preventing dehydration Start by sipping water or a solution to prevent dehydration (oral rehydration solution, ORS). This is a drink that helps replace fluids and minerals your body has lost. You can buy an ORS at pharmacies and retail stores. Try to drink at least 8 10 cups (2,000 2,500 mL) of fluid each day to help replace lost fluids. If you have urine that is pale yellow, you are getting enough fluids. You may drink other liquids in addition to water, such as fruit juice that you have added water to (diluted fruit juice) or low-calorie sports drinks, as tolerated or as told by your health care provider. Avoid drinks with caffeine, such as coffee, tea, or soft drinks. Avoid alcohol. Summary When you have diarrhea, it is important to choose the right foods and drinks to relieve diarrhea, to replace lost fluids and nutrients, and to prevent dehydration. Make sure you drink enough fluid to keep your urine pale yellow. You may benefit from eating bland foods at first. Gradually reintroduce healthy, nutrient-rich foods as tolerated or as told by your health care provider. Avoid foods that make your diarrhea worse, such as fried, greasy, or spicy foods. This information is not intended to replace advice given to you by your health care provider. Make sure you discuss any questions you have with your health care provider. Document Revised: 11/08/2022 Document Reviewed: 10/03/2020 [employer] Patient Education 2022 [employer]. 10/05/2023 10:51:58 Dysuria Dysuria Dysuria is pain or discomfort during urination. The pain or discomfort may be felt in the part of the body that drains urine from the bladder (urethra) or in the surrounding tissue of the genitals. The pain may also be felt in the groin area, lower abdomen, or lower back. You may have to urinate frequently or have the sudden feeling that you have to urinate (urgency). Dysuria can affect anyone, but it is more common in females. Dysuria can be caused by many different things, including: Urinary tract infection. Kidney stones or bladder stones. Certain STIs (sexually transmitted infections), such as chlamydia. Dehydration. Inflammation of the tissues of the vagina. Use of certain medicines. Use of certain soaps or scented products that cause irritation. Follow these instructions at home: Medicines Take rkae-rtk-mwbpvrn and prescription medicines only as told by your health care provider. If you were prescribed an antibiotic medicine, take it as told by your health care provider. Do notstop taking the antibiotic even if you start to feel better. Eating and drinking Drink enough fluid to keep your urine pale yellow. Avoid caffeinated beverages, tea, and alcohol. These beverages can irritate the bladder and make dysuria worse. In males, alcohol may irritate the prostate. General instructions Watch your condition for any changes. Urinate often. Avoid holding urine for long periods of time. If you are female, you should wipe from front to back after urinating or having a bowel movement. Use each piece of toilet paper only once. Empty your bladder after sex. Keep all follow-up visits. This is important. If you had any tests done to find the cause of dysuria, it is up to you to get your test results. Ask your health care provider, or the department that is doing the test, when your results will be ready. Contact a health care provider if: You have a fever. You develop pain in your back or sides. You have nausea or vomiting. You have blood in your urine. You are not urinating as often as you usually do. Get help right away if: Your pain is severe and not relieved with medicines. You cannot eat or drink without vomiting. You are confused. You have a rapid heartbeat while resting. You have shaking or chills. You feel extremely weak. Summary Dysuria is pain or discomfort while urinating. Many different conditions can lead to dysuria. If you have dysuria, you may have to urinate frequently or have the sudden feeling that you have tourinate (urgency). Watch your condition for any changes. Keep all follow-up visits. Make sure that you urinate often and drink enough fluid to keep your urine pale yellow. This information is not intended to replace advice given to you by your health care provider. Make sure you discuss any questions you have with your health care provider. Document Revised: 03/30/2021 Document Reviewed: 03/30/2021 [employer] Patient Education 2022 [employer]. 10/05/2023 10:51:58 Diarrhea, Adult Diarrhea, Adult Diarrhea is frequent loose and watery bowel movements. Diarrhea can make you feel weak and cause you to become dehydrated. Dehydration can make you tired and thirsty, cause you to have a dry mouth, and decrease how often you urinate. Diarrhea typically lasts 2 3 days. However, it can last longer if it is a sign of something more serious. It is important to treat your diarrhea as told by your health care provider. Follow these instructions at home: Eating and drinking Follow these recommendations as told by your health care provider: Take an oral rehydration solution (ORS). This is an xwfg-uzz-kcuyxrh medicine that helps return your body to its normal balance of nutrients and water. It is found at pharmacies and retail stores. Drink plenty of fluids, such as water, ice chips, diluted fruit juice, and low- calorie sports drinks. You can drink milk also, if desired. Avoid drinking fluids that contain a lot of sugar or caffeine, such as energy drinks, sports drinks, and soda. Eat bland, eaxo-mx-szgvlv foods in small amounts as you are able. These foods include bananas, applesauce, rice, lean meats, toast, and crackers. Avoid alcohol. Avoid spicy or fatty foods. Medicines Take sbzd-kqn-nvmmtgo and prescription medicines only as told by your health care provider. If you were prescribed an antibiotic medicine, take it as told by your health care provider. Do notstop using the antibiotic even if you start to feel better. General instructions Wash your hands often using soap and water. If soap and water are not available, use a hand ice cream machine operator. Others in the household should wash their hands as well. Hands should be washed: ?After using the toilet or changing a diaper. ?Before preparing, cooking, or serving food. ?While caring for a sick person or while visiting someone in a hospital. Drink enough fluid to keep your urine pale yellow. Rest at home while you recover. Watch your condition for any changes. Take a warm bath to relieve any burning or pain from frequent diarrhea episodes. Keep all follow-up visits as told by your health care provider. This is important. Contact a health care provider if: You have a fever. Your diarrhea gets worse. You have new symptoms. You cannot keep fluids down. You feel light-headed or dizzy. You have a headache. You have muscle cramps. Get help right away if: You have chest pain. You feel extremely weak or you faint. You have bloody or black stools or stools that look like tar. You have severe pain, cramping, or bloating in your abdomen. You have trouble breathing or you are breathing very quickly. Your heart is beating very quickly. Your skin feels cold and clammy. You feel confused. You have signs of dehydration, such as: ?Dark urine, very little urine, or no urine. ?Cracked lips. ?Dry mouth. ?Sunken eyes. ?Sleepiness. ?Weakness. Summary Diarrhea is frequent loose and sometimes watery bowel movements. Diarrhea can make you feel weak and cause you to become dehydrated. Drink enough fluids to keep your urine pale yellow. Make sure that you wash your hands after using the toilet. If soap and water are not available, usehand ice cream machine operator. Contact a health care provider if your diarrhea gets worse or you have new symptoms. Get help right away if you have signs of dehydration. This information is not intended to replace advice given to you by your health care provider. Make sure you discuss any questions you have with your health care provider. Document Revised: 11/08/2022 Document Reviewed: 02/27/2022 [employer] Patient Education 2022 [employer]. Follow Up Care 10/05/2023 07:45:06 With:TUAN WALDO Address: [address] [place], [place] [id number]- Business (1) When:10/08/2023 10:38:44 Comments:Take Imodium kkai-rug-tmlkeyq as instructed. Return to the emergency room if your diarrhea gets worse, blood in diarrhea, fever or any new symptoms. [facility]11-06-2023 Evaluation + Plan note Diagnostic Tests Pending * PAP [id number] 07/07/23 [facility]10-27-2023 Evaluation note* Encounter Date Diagnosis Assessment Notes Treatment Notes Treatment Clinical Notes Jun, GERD (gastroesophageal reflux disease) (ICD-10 - K21.9) [employer] Other [id number] NoteHOSPITAL REGULATIONS: All Positive and Important Negative Findings Shall Be Recorded DATE ADMITTED: 05/26/2023 INTERVAL NOTE The patient is a 23 year old, , Para III, II white female who presented to Laborand Delivery for labor. Her course had been complicated by luteal phase defect which was taken care of with progesterone suppositories with her history of recurrent miscarriages. Also complicated by anemia. She was treated with iron supplementation. Complicated by 85th percentile growth pattern at 36 weeks gestation. Complicated by a history of sections x2, history of vaginal after in the past. The patient desires vaginal after again. She has beeninformed of the risk of procedure including ruptured uterus, harm to fetus or to maternal systems, need for surgery or blood products, etc, all of which she understands and accepts and is strongly desirous of vaginal after . She had signed consents. We anticipate spontaneous vaginal delivery of an 8 to 8.5 pound infant. Please see records for details. You Wilkerson M.D. rey Dictated: 05/29/2023 [id number] Transcribed: [facility]/29/2023[facility]:Result Comment: Electronically Signed By: You Wilkerson MD\.br\Date and Time Signed: 05/30/23 09:05 [id number] NoteDATE OF DISCHARGE: 05/29/2023 The patient is without complaints. Positive flatus. Positive void. Vital signs are stable, afebrile. Breasts non-tender, non-pathologic. Abdomen fundus firm and below the umbilicus. She has scant lochia. The perineum is intact. The patient is ready for release. Good instructions are given. The patient is to return to my office in six weeks. She is given the following prescriptions for her home use: Motrin and vitamins. DISCHARGE DIAGNOSIS: Vaginal delivery. Course: Complicated by previous history of section x2, previous vaginal after x1, history of recurrent miscarriages treated with luteal phase progesterone as well aslarge for gestational age infant and mild anemia. Intrapartum Course: Vaginal after , nuchal cord was reduced x1, productive of an 8 pound 7 ounce female with Apgars of eight and nine. The patient with spinal tap and spinal headache. Course: Patient required management of a spinal headache by Anesthesia with blood patch,resolved by day three. You Wilkerson M.D. lr Dictated: 05/29/2023 [id number] Transcribed: 05/29/2023[facility] HospitalComment on above:Result Comment: Electronically Signed By: You Wilkerson MD\.br\Date and Time Signed: 05/30/23 09:04 [id number] Evaluation + Plan noteExtracted from: Title:OB Inpatient Progress note Auth or:You Wilkerson MD Date:05/29/23 Impression and Plan Plan Routine care. Course: Progressing as expected. pt has minimal REN this am will discharge Extracted from: Title:ANES Post-Labor Epidural Author:Pcaheco Torres Jr, DO Date:05/28/23 Plan Transfer/Discharge: Stable for discharge from anesthetic standpoint.. Extracted from: Title:Epidural Blood Patch Author:Pacheco Min Jr., DO Date:05/28/23 Patient: KASSIE CRAWFORD Age: 23 years Sex: Female : 2000 Associated Diagnoses: None Author: Pacheco Min Jr., DO Postoperative Information Date/ Time: 05/28/2023 08:40:00 Preoperative Diagnosis: Post-dural puncture headache.. Postoperative Diagnosis: Post-dural puncture headache.. Procedure: Epidural blood patch. Anesthesia Method: Local, Monitored anesthesia care. Performed by: Pacheco Min Jr., DO. Complications: None. Notes: The patient was interviewed and examined prior to the planned operation. Therapies were discussed with the patient, including a description of the procedure, risks and benefits, as well as alternatives to the blood patch. The patients questions were addressed and the patient elected to proceed with the epidural blood patch. The patient was placed in the sitting position and monitored with continuous pulse oximetry, non-invasive blood pressure. The lumbar region was prepped with betadine solution and draped with a sterile plastic drape. Anatomic landmarks were palpated and identified including midline, iliac crests, and spinous prodesses. The skin and subcutaneous tissues were anesthetized with 3 cc of 1% lidocaine. A 17 gauge Tuohy needle was introduced into the interspinal space at the L2-L3 level under continuous pressure with a saline-filled glass syringe. The epidural space was encountered as demonstrated by a loss of resistance. A route service manager then james 20cc of the patient's blood with sterile technique from the patient's right antecubital region. The blood thus drawn was passed sterilely to ne and I subsequently injected 13 cc of the blood into the epidural space, at which time the patient reported a sensation of pressure in the low back. The needle was withdrawn and a bandage was placed over the operative site. The patient was encouraged to return to the supine position and received IV fluid. The patient tolerated the procedure well.. Addendum by Pacheco Min Jr., DO on May 28, 2023 9:10 EDT Corrected note type to operative report Extracted from: Title:OB Inpatient Progress note Auth or:You Wilkerson MD Date:05/27/23 Impression and Plan Plan Routine care. Course: Progressing as expected. some c/o REN consistent with spinal REN anesthesia aware and managing Extracted from: Title:L&D Epidural note Author:Nina Min Jr., DO Date:05/26/23 Patient: KASSIE CRAWFORD Age: 23 years Sex: Female : 2000 Associated Diagnoses: None Author: Pacheco Min Jr., DO Chief Complaint Intrauterine Health Status Allergies: Allergic Reactions (All) No Known Allergies Current medications.Problem list: All Problems Acid reflux / SNOMED CT 3868583889 / Confirmed Age mother conceived under 17 / Patient Care / Confirmed History of / SNOMED CT 017771631 / Confirmed / SNOMED CT 831737828 / Confirmed Resolved: Arthritis / SNOMED CT 6629232 Resolved: / SNOMED CT 875574461 Resolved: / SNOMED CT 544413231 Resolved: / SNOMED CT 505902099 Resolved: / SNOMED CT 457104241 Resolved: / SNOMED CT 176957145 Resolved: Yeast / SNOMED CT 013987115 Review of Systems Respiratory: Negative. Cardiovascular: Negative. Hematology/Lymphatics: No bruising tendency, No bleeding tendency. Neurologic: Negative. Physical Examination Please refer to Labor floor nursing records for ongoing vital signs, and for intake and output totals while epidural was running. Review / Management Differential diagnosis: Active labor. OB Results Review Labor 05/26/2023 7:01 EDT WBC 10.3 E9/L RBC 4.2 E12/L LOW HGB 10.3 gm/dL LOW Hct 31.1 % LOW MCV 74.0 fL LOW MCH 24.5 pg LOW MCHC 33.2 gm/dL RDW 15.6 % HI Platelet 243.0 E9/L MPV 8.4 fL ABO/Rh O POS ABSC Gel Interp Negative Impression and Plan Plan Labor epidural at request of patient.. Procedure Epidural injection procedure Date/ Time: 05/26/2023 09:59:00. Confirmed: patient, procedure, site, safety procedures followed. Performed by: Pacheco Min DO. Informed consent: signed by patient. Indication: Active labor.. Preparation and technique: informed consent obtained (from patient before the procedure), positioned (sitting), sterile preparation of site (patient's back was sterilly prepped and draped) (in usual fashion, with 10 % povidone iodine, draped to expose affected area), local anesthesia (1% lidocaine was applied to the patient's back before the epidural was attempted) (lidocaine without epinephrine, 3 cc injected subcutaneously), approach (midline), needle (17 ga touhy) (placed via loss of resistance technique, At _L4-L5_ interspace.), aspiration (cerebral spinal fluid, not blood), injectant (test dose consisting of 3 ml of 1.5% lodocaine with 1:200,000 epi) (test dose given, Epidural catheter inserted and secured at a depth of 12 cm at skin.). Procedure tolerated: fairly. Complications: paresthesia, Negative heme, CSF return noted, and response to test dose: rapid onset of weakness, drop in blood pressure.. Patient BP responded well to ephedrine dosing. Additional fluids ordered. Assuming intrathecal catheter.. [employer] Epidural Medications Administered: Bolus dose consisted of 100 mcg of fentanyl (2 ml) at 1015. Awaiting return of patient sensation prior to starting epidural infusion. Addendum by Pacheco Min Jr., DO on May 26, 2023 10:38 EDT Nursing instructed to leave catheter in position for at least 24 hours before removal. [facility]09-28-2023 NoteThe following Patient Education Materials have been given to the patient: [facility] Discharge instructions Follow Up Care 05/18/2023 19:36:37 With:You Wilkerson Address: [address] [place] [address] [place] [phone] [facility] (1) When:05/19/2023 Comments:Call for any problems.Call physician for heavy vaginal bleedingReturn for contractions closer, longer, harderReturn for decreased movementReturn if ruptured membranes or vaginal bleeding [facility]09-17-2023 NoteThe following Patient Education Materials have been given to the patient: [facility]09-02-2023 Hospital Discharge instructions Follow Up Care 05/03/2023 00:24:31 With:Dr. Wilkerson [phone] Address:Unknown When:6 weeks Comments:Call for any problems. [facility]09-01-2023 Hospital Discharge instructions Patient Education 05/02/2023 16:35:42 and Urinary Tract Infection and Urinary Tract Infection A urinary tract infection (UTI) is an infection of any part of the urinary tract. This includes thekidneys, the tubes that connect the kidneys to the bladder (ureters), the bladder, and the tube that carries urine out of the body (urethra). These organs make, store, and get rid of urine in the body. Your health care provider may use other names to describe the infection. An upper UTI affects theureters and kidneys (pyelonephritis). A lower UTI affects the bladder (cystitis) and urethra (urethritis). Most UTIs are caused by bacteria in the genital area, around the entrance to the urinary tract. These bacteria grow and cause irritation and inflammation of the urinary tract. You are more likely to develop a UTI during because: The physical and hormonal changes that your body goes through make it easier for bacteria to get into your urinary tract. Your growing baby puts pressure on your bladder and can affect urine flow. women with diabetes are at an increased risk for developing a UTI. It is important to recognize and treat UTIs in because they can cause serious complications for both you and yourbaby. How does this affect me? Symptoms of a UTI include: Needing to urinate right away (urgently) and often, even if urinating a small amount. Pain, burning, or having a hard time passing urine. Blood in the urine. Unusual, cloudy, and bad-smelling urine. Pain in the abdomen or lower back. Vaginal discharge. You may also have: Vomiting or a decreased appetite. Confusion. Irritability or tiredness. A fever. Diarrhea. A low level of red blood cells (anemia). The development of high blood pressure during (preeclampsia). How does this affect my baby? An untreated UTI during could lead to a kidney infection or an infection throughout the mother's body (systemic infection). This can cause health problems and affect the baby. Possible complications of an untreated UTI include: Your baby being born before 37 weeks of (premature). Your baby being born with a low weight. Your baby having a higher risk of having his or her skin or the white parts of the eyes turn yellow(jaundice). What can I do to lower my risk? To prevent a UTI: Do not hold urine for long periods of time. Empty your bladder as soon as you feel the urge. Always wipe from front to back, especially after a bowel movement. Use each tissue one time when you wipe. Empty your bladder after sex. Keep your genital area dry. Drink 6 to 8 glasses of water each day. Do not douche or use deodorant sprays. Wear cotton underwear and loose clothing. How is this treated? Treatment for this condition may include: Antibiotic medicines that are safe to take during . Other medicines to treat less common causes of UTI. Follow these instructions at home: If you were prescribed an antibiotic medicine, take it as told by your health care provider. Do notstop using the antibiotic even if you start to feel better. Keep all follow-up visits. This is important. Contact a health care provider if: Your symptoms do not improve or they get worse. You have abnormal vaginal discharge. Get help right away if you: Have a fever. Have nausea and vomiting. Have back or side pain. Have lower belly pain, tightness, or feel contractions in your uterus. Have a gush of fluid from your vagina. Have blood in your urine. Summary A UTI is an infection of any part of the urinary tract, which includes the kidneys, ureters, bladder, and urethra. Most urinary tract infections are caused by bacteria in your genital area, around the entrance to your urinary tract (urethra). You are more likely to develop a UTI during . It is important to recognize and treat UTIs in because of the risk of serious complications for both you and your baby. If you were prescribed an antibiotic medicine, take it as told by your health care provider. Do notstop using the antibiotic even if you start to feel better. This information is not intended to replace advice given to you by your health care provider. Make sure you discuss any questions you have with your health care provider. Document Revised: 04/03/2022 Document Reviewed: 04/03/2022 [employer] Patient Education 2022 [employer]. Follow Up Care 05/02/2023 15:52:01 With:You Wilkerson Address: [place] [phone]- Business (1) When:05/12/2023 [facility]09-01-2023 NoteThe following Patient Education Materials have been given to the patient: [place] [id number] Evaluation + Plan note Diagnostic Tests Pending * RPR with Conf Rfx 03/14/23 [facility]05-03-2023 Hospital Discharge instructions Patient Education 01/01/2023 12:44:21 Bacterial Conjunctivitis, Adult Bacterial Conjunctivitis, Adult Bacterial conjunctivitis is an infection of the clear membrane that covers the white part of the eye and the inner surface of the eyelid (conjunctiva). When the blood vessels in the conjunctiva become inflamed, the eye becomes red or pink. The eye often feels irritated or itchy. Bacterial conjunctivitis spreads easily from person to person (is contagious). It also spreads easily from one eye to the other eye. What are the causes? This condition is caused by bacteria. You may get the infection if you come into close contact with: A person who is infected with the bacteria. Items that are contaminated with the bacteria, such as a face towel, contact lens solution, or eye makeup. What increases the risk? You are more likely to develop this condition if: You are exposed to other people who have the infection. You wear contact lenses. You have a sinus infection. You have had a recent eye injury or surgery. You have a weak body defense system (immune system). You have a medical condition that causes dry eyes. What are the signs or symptoms? Symptoms of this condition include: Thick, yellowish discharge from the eye. This may turn into a crust on the eyelid overnight and cause your eyelids to stick together. Tearing or watery eyes. Itchy eyes. Burning feeling in your eyes. Eye redness. Swollen eyelids. Blurred vision. How is this diagnosed? This condition is diagnosed based on your symptoms and medical history. Your health care provider may also take a sample of discharge from your eye to find the cause of your infection. How is this treated? This condition may be treated with: Antibiotic eye drops or ointment to clear the infection more quickly and prevent the spread of infection to others. Antibiotic medicines taken by mouth (orally) to treat infections that do not respond to drops or ointments or that last longer than 10 days. Cool, wet cloths (cool compresses) placed on the eyes. Artificial tears applied 2 6 times a day. Follow these instructions at home: Medicines Take or apply your antibiotic medicine as told by your health care provider. Do not stop using the antibiotic, even if your condition improves, unless directed by your health care provider. Take or apply kxev-jkk-mvgqvft and prescription medicines only as told by your health care provider. Be very careful to avoid touching the edge of your eyelid with the eye-drop bottle or the ointment tube when you apply medicines to the affected eye. This will keep you from spreading the infection to your other eye or to other people. Managing discomfort Gently wipe away any drainage from your eye with a warm, wet washcloth or a cotton ball. Apply a clean, cool compress to your eye for 10 20 minutes, 3 4 times a day. General instructions Do not wear contact lenses until the inflammation is gone and your health care provider says it is safe to wear them again. Ask your health care provider how to sterilize or replace your contact lenses before you use them again. Wear glasses until you can resume wearing contact lenses. Avoid wearing eye makeup until the inflammation is gone. Throw away any old eye cosmetics that may be contaminated. Change or wash your pillowcase every day. Do not share towels or washcloths. This may spread the infection. Wash your hands often with soap and water for at least 20 seconds and especially before touching your face or eyes. Use paper towels to dry your hands. Avoid touching or rubbing your eyes. Do not drive or use heavy machinery if your vision is blurred. Contact a health care provider if: You have a fever. Your symptoms do not get better after 10 days. Get help right away if: You have a fever and your symptoms suddenly get worse. You have severe pain when you move your eye. You have facial pain, redness, or swelling. You have a sudden loss of vision. Summary Bacterial conjunctivitis is an infection of the clear membrane that covers the white part of the eye and the inner surface of the eyelid (conjunctiva). Bacterial conjunctivitis spreads easily from eye to eye and from person to person (is contagious). Wash your hands often with soap and water for at least 20 seconds and especially before touching your face or eyes. Use paper towels to dry your hands. Take or apply your antibiotic medicine as told by your health care provider. Do not stop using the antibiotic even if your condition improves. Contact a health care provider if you have a fever or if your symptoms do not get better after 10 days. Get help right away if you have a sudden loss of vision. This information is not intended to replace advice given to you by your health care provider. Make sure you discuss any questions you have with your health care provider. Document Revised: 11/28/2021 Document Reviewed: 11/28/2021 [employer] Patient Education 2022 [employer]. Follow Up Care 01/01/2023 12:18:51 With:TUAN HAAS DO, FAM Address: [address] [place] [address]- When: Unknown [facility] 02-20-2023 Evaluation + Plan note Diagnostic Tests Pending * Chlamydia/Gonococcus, SAMIR 10/21/22 [facility]02-11-2023 Evaluation + Plan noteExtracted from: Title:ED Note Author:Hipolito Burt PA-C te:10/12/22 Upper respiratory infection, viral (J06.9: Acute upper respiratory infection, unspecified) Orders: XR Chest 2 Views [facility]02-11-2023 Hospital Discharge instructions Patient Education 10/12/2022 10:59:55 Upper Respiratory Infection, Adult, Vsyn-sw-Unbx Upper Respiratory Infection, Adult An upper respiratory infection (URI) affects the nose, throat, and upper air passages. URIs are caused by germs (viruses). The most common type of URI is often called the common cold. Medicines cannot cure URIs, but you can do things at home to relieve your symptoms. URIs usually get better within 7 10 days. Follow these instructions at home: Activity Rest as needed. If you have a fever, stay home from work or school until your fever is gone, or until your doctor says you may return to work or school. ?You should stay home until you cannot spread the infection anymore (you are not contagious). ?Your doctor may have you wear a face mask so you have less risk of spreading the infection. Relieving symptoms Gargle with a salt-water mixture 3 4 times a day or as needed. To make a salt- water mixture, completely dissolve 1 tsp of salt in 1 cup of warm water. Use a cool-mist humidifier to add moisture to the air. This can help you breathe more easily. Eating and drinking Drink enough fluid to keep your pee (urine) pale yellow. Eat soups and other clear broths. General instructions Take rjck-wth-ewqxizn and prescription medicines only as told by your doctor. These include cold medicines, fever reducers, and cough suppressants. Do not use any products that contain nicotine or tobacco. These include cigarettes and e-cigarettes. If you need help quitting, ask your doctor. Avoid being where people are smoking (avoid secondhand smoke). Make sure you get regular shots and get the flu shot every year. Keep all follow-up visits as told by your doctor. This is important. How to avoid spreading infection to others Wash your hands often with soap and water. If you do not have soap and water, use hand ice cream machine operator. Avoid touching your mouth, face, eyes, or nose. Cough or sneeze into a tissue or your sleeve or elbow. Do not cough or sneeze into your hand or into the air. Contact a doctor if: You are getting worse, not better. You have any of these: ?A fever. ?Chills. ?Brown or red mucus in your nose. ?Yellow or brown fluid (discharge)coming from your nose. ?Pain in your face, especially when you bend forward. ?Swollen neck glands. ?Pain with swallowing. ?White areas in the back of your throat. Get help right away if: You have shortness of breath that gets worse. You have very bad or constant: ?Headache. ?Ear pain. ?Pain in your forehead, behind your eyes, and over your cheekbones (sinus pain). ?Chest pain. You have long-lasting (chronic) lung disease along with any of these: ?Wheezing. ?Long-lasting cough. ?Coughing up blood. ?A change in your usual mucus. You have a stiff neck. You have changes in your: ?Vision. ?Hearing. ?Thinking. ?Mood. Summary An upper respiratory infection (URI) is caused by a germ called a virus. The most common type of URI is often called the common cold. URIs usually get better within 7 10 days. Take oocp-mrh-vhcdrwj and prescription medicines only as told by your doctor. This information is not intended to replace advice given to you by your health care provider. Make sure you discuss any questions you have with your health care provider. Document Released: 02/03/2009 Document Revised: 08/26/2019 Document Reviewed: 04/10/2018 [employer] Patient Education 2019 [employer]. Follow Up Care 10/12/2022 10:06:40 With:TUAN HAAS Address: [address] [place] [phone]- Business (1) When:10/15/2022 10:37:05 Comments:Follow-up with your primary care provider in 3 to 5 days. If symptoms worsen, do not improve, or new symptoms arise please report back to emergency department for further evaluation. [facility]01-30-2023 Evaluation + Plan note Diagnostic Tests Pending * Rubella Antibody IgG 09/30/22 * RPR with Conf Rfx 09/30/22 * Hepatitis B Surface Antigen 09/30/22 * Urine Culture 09/30/22 [facility]01-16-2023 Evaluation note* Encounter Date Diagnosis Assessment Notes Treatment Notes Treatment Clinical Notes Sep, Chest pain, unspecified type (ICD-10 - R07.9) Sep, Hip pain (ICD-10 - M25.559) The patient complains of bilateral hip pain that is worse upon rising in the morning and at the end of the day. Upon examination the patient appears to have good range of motion and normal reflexes, she does report lower back pain across the bilateral lumbar region upon palpation. Blood work ordered to rule out rheumatological abnormalities. Sep, Cutaneous abscess of face (ICD-10 - L02.01) Blood work ordered and the above medication and instructions provided. Sep, Hyperglycemia (ICD-10 - R73.9) Sep, History of anemia (ICD-10 - Z86.2) Blood work ordered to re-evlaute. Sep, Screening for cardiovascular condition (ICD-10 - Z13.6) [employer] Other [id number] Evaluation + Plan note Diagnostic Tests Pending * Urine Culture 06/17/22 * HIV Screen 4th Generation wRfx 06/17/22 [facility]10-17-2022 Evaluation note* Encounter Date Diagnosis Assessment Notes Treatment Notes Treatment Clinical Notes Jun, Wrist pain, right (ICD-10 - M25.531) [employer] Other 10-16-2022 Hospital Discharge instructions Patient Education 06/16/2022 18:33:39 Viral Illness, Adult Viral Illness, Adult Viruses are tiny germs that can get into a person's body and cause illness. There are many different types of viruses, and they cause many types of illness. Viral illnesses can range from mild to severe. They can affect various parts of the body. Common illnesses that are caused by a virus include colds and the flu. Viral illnesses also includeserious conditions such as HIV/AIDS (human immunodeficiency virus/acquired immunodeficiency syndrome). A few viruses have been linked to certain cancers. What are the causes? Many types of viruses can cause illness. Viruses invade cells in your body, multiply, and cause theinfected cells to malfunction or . When the cell dies, it releases more of the virus. When this happens, you develop symptoms of the illness, and the virus continues to spread to other cells. If the virus takes over the function of the cell, it can cause the cell to divide and grow out of control, as is the case when a virus causes cancer. Different viruses get into the body in different ways. You can get a virus by: Swallowing food or water that is contaminated with the virus. Breathing in droplets that have been coughed or sneezed into the air by an infected person. Touching a surface that has been contaminated with the virus and then touching your eyes, nose, or mouth. Being bitten by an insect or animal that carries the virus. Having sexual contact with a person who is infected with the virus. Being exposed to blood or fluids that contain the virus, either through an open cut or during a transfusion. If a virus enters your body, your body's defense system (immune system) will try to fight the virus. You may be at higher risk for a viral illness if your immune system is weak. What are the signs or symptoms? Symptoms vary depending on the type of virus and the location of the cells that it invades. Common symptoms of the main types of viral illnesses include: Cold and flu viruses Fever. Headache. Sore throat. Muscle aches. Nasal congestion. Cough. Digestive system (gastrointestinal) viruses Fever. Abdominal pain. Nausea. Diarrhea. Liver viruses (hepatitis) Loss of appetite. Tiredness. Yellowing of the skin (jaundice). Brain and spinal cord viruses Fever. Headache. Stiff neck. Nausea and vomiting. Confusion or sleepiness. Skin viruses Warts. Itching. Rash. Sexually transmitted viruses Discharge. Swelling. Redness. Rash. How is this treated? Viruses can be difficult to treat because they live within cells. Antibiotic medicines do not treatviruses because these drugs do not get inside cells. Treatment for a viral illness may include: Resting and drinking plenty of fluids. Medicines to relieve symptoms. These can include bqli-lqk-uozgxvp medicine for pain and fever, medicines for cough or congestion, and medicines to relieve diarrhea. Antiviral medicines. These drugs are available only for certain types of viruses. They may help reduce flu symptoms if taken early. There are also many antiviral medicines for hepatitis and HIV/AIDS. Some viral illnesses can be prevented with vaccinations. A common example is the flu shot. Follow these instructions at home: Medicines Take ehzk-ltf-uwwcafy and prescription medicines only as told by your health care provider. If you were prescribed an antiviral medicine, take it as told by your health care provider. Do not stop taking the medicine even if you start to feel better. Be aware of when antibiotics are needed and when they are not needed. Antibiotics do not treat viruses. If your health care provider thinks that you may have a bacterial infection as well as a viral infection, you may get an antibiotic. ?Do not ask for an antibiotic prescription if you have been diagnosed with a viral illness. That will not make your illness go away faster. ?Frequently taking antibiotics when they are not needed can lead to antibiotic resistance. When this develops, the medicine no longer works against the bacteria that it normally fights. General instructions Drink enough fluids to keep your urine clear or pale yellow. Rest as much as possible. Return to your normal activities as told by your health care provider. Ask your health care provider what activities are safe for you. Keep all follow-up visits as told by your health care provider. This is important. How is this prevented? Take these actions to reduce your risk of viral infection: Eat a healthy diet and get enough rest. Wash your hands often with soap and water. This is especially important when you are in public places. If soap and water are not available, use hand ice cream machine operator. Avoid close contact with friends and family who have a viral illness. If you travel to areas where viral gastrointestinal infection is common, avoid drinking water or eating raw food. Keep your immunizations up to date. Get a flu shot every year as told by your health care provider. Do not share toothbrushes, nail clippers, razors, or needles with other people. Always practice safe sex. Contact a health care provider if: You have symptoms of a viral illness that do not go away. Your symptoms come back after going away. Your symptoms get worse. Get help right away if: You have trouble breathing. You have a severe headache or a stiff neck. You have severe vomiting or abdominal pain. This information is not intended to replace advice given to you by your health care provider. Make sure you discuss any questions you have with your health care provider. Document Released: 12/27/2016 Document Revised: 07/31/2018 Document Reviewed: 12/27/2016 [employer] Patient Education 2020 [employer]. 06/16/2022 18:33:39 First Trimester of First Trimester of The first trimester of is from week 1 until the end of week 13 (months 1 through 3). A week after a sperm fertilizes an egg, the egg will implant on the wall of the uterus. This embryo willbegin to develop into a baby. Genes from you and your partner will form the baby. The male genes will determine whether the baby will be a boy or a girl. At 6 8 weeks, the eyes and face will be formed , and the heartbeat can be seen on ultrasound. At the end of 12 weeks, all the baby's organs will be formed. Now that you are , you will want to do everything you can to have a healthy baby. Two of the most important things are to get good care and to follow your health care provider's instructions. care is all the medical care you receive before the baby's . This care will help prevent, find, and treat any problems during the and childbirth. Body changes during your first trimester Your body goes through many changes during . The changes vary from woman to woman. You may gain or lose a couple of pounds at first. You may feel sick to your stomach (nauseous) and you may throw up (vomit). If the vomiting is uncontrollable, call your health care provider. You may tire easily. You may develop headaches that can be relieved by medicines. All medicines should be approved by your health care provider. You may urinate more often. Painful urination may mean you have a bladder infection. You may develop heartburn as a result of your . You may develop constipation because certain hormones are causing the muscles that push stool through your intestines to slow down. You may develop hemorrhoids or swollen veins (varicose veins). Your breasts may begin to grow larger and become tender. Your nipples may stick out more, and the tissue that surrounds them (areola) may become darker. Your gums may bleed and may be sensitive to brushing and flossing. Dark spots or blotches (chloasma, mask of ) may develop on your face. This will likely fade after the baby is born. Your menstrual periods will stop. You may have a loss of appetite. You may develop cravings for certain kinds of food. You may have changes in your emotions from day to day, such as being excited to be or being concerned that something may go wrong with the and baby. You may have more vivid and strange dreams. You may have changes in your hair. These can include thickening of your hair, rapid growth, and changes in texture. Some women also have hair loss during or after , or hair that feels dry orthin. Your hair will most likely return to normal after your baby is born. What to expect at visits During a routine visit: You will be weighed to make sure you and the baby are growing normally. Your blood pressure will be taken. Your abdomen will be measured to track your baby's growth. The heartbeat will be listened to between weeks 10 and 14 of your . Test results from any previous visits will be discussed. Your health care provider may ask you: How you are feeling. If you are feeling the baby move. If you have had any abnormal symptoms, such as leaking fluid, bleeding, severe headaches, or abdominal cramping. If you are using any tobacco products, including cigarettes, chewing tobacco, and electronic cigarettes. If you have any questions. Other tests that may be performed during your first trimester include: Blood tests to find your blood type and to check for the presence of any previous infections. The tests will also be used to check for low iron levels (anemia) and protein on red blood cells (Rh antibodies). Depending on your risk factors, or if you previously had diabetes during , you mayhave tests to check for high blood sugar that affects women (gestational diabetes). Urine tests to check for infections, diabetes, or protein in the urine. An ultrasound to confirm the proper growth and development of the baby. screens for spinal cord problems (spina bifida) and Down syndrome. HIV (human immunodeficiency virus) testing. Routine testing includes screening for HIV, unless you choose not to have this test. You may need other tests to make sure you and the baby are doing well. Follow these instructions at home: Medicines Follow your health care provider's instructions regarding medicine use. Specific medicines may be either safe or unsafe to take during . Take a vitamin that contains at least 600 micrograms (mcg) of folic acid. If you develop constipation, try taking a stool softener if your health care provider approves. Eating and drinking Eat a balanced diet that includes fresh fruits and vegetables, whole grains, good sources of protein such as meat, eggs, or tofu, and low-fat dairy. Your health care provider will help you determine the amount of weight gain that is right for you. Avoid raw meat and uncooked cheese. These carry germs that can cause defects in the baby. Eating four or five small meals rather than three large meals a day may help relieve nausea and vomiting. If you start to feel nauseous, eating a few soda crackers can be helpful. Drinking liquids between meals, instead of during meals, also seems to help ease nausea and vomiting. Limit foods that are high in fat and processed sugars, such as fried and sweet foods. To prevent constipation: ?Eat foods that are high in fiber, such as fresh fruits and vegetables, whole grains, and beans. ?Drink enough fluid to keep your urine clear or pale yellow. Activity Exercise only as directed by your health care provider. Most women can continue their usual exercise routine during . Try to exercise for 30 minutes at least 5 days a week. Exercising will help you: ?Control your weight. ?Stay in shape. ?Be prepared for labor and delivery. Experiencing pain or cramping in the lower abdomen or lower back is a good sign that you should stop exercising. Check with your health care provider before continuing with normal exercises. Try to avoid standing for long periods of time. Move your legs often if you must affiliate marketing coordinator one placefor a long time. Avoid heavy lifting. Wear low-heeled shoes and practice good posture. You may continue to have sex unless your health care provider tells you not to. Relieving pain and discomfort Wear a good support bra to relieve breast tenderness. Take warm sitz baths to soothe any pain or discomfort caused by hemorrhoids. Use hemorrhoid cream if your health care provider approves. Rest with your legs elevated if you have leg cramps or low back pain. If you develop varicose veins in your legs, wear support hose. Elevate your feet for 15 minutes, 3 4 times a day. Limit salt in your diet. care Schedule your visits by the twelfth week of . They are usually scheduled monthly at first, then more often in the last 2 months before delivery. Write down your questions. Take them to your visits. Keep all your visits as told by your health care provider. This is important. Safety Wear your seat belt at all times when driving. Make a list of emergency phone numbers, including numbers for family, friends, the hospital, and police and fire departments. General instructions Ask your health care provider for a referral to a local education class. Begin classes no later than the beginning of month 6 of your . Ask for help if you have counseling or nutritional needs during . Your health care provider can offer advice or refer you to specialists for help with various needs. Do not use hot tubs, steam rooms, or saunas. Do not douche or use tampons or scented sanitary pads. Do not cross your legs for long periods of time. Avoid cat litter boxes and soil used by cats. These carry germs that can cause defects in thebaby and possibly loss of the fetus by miscarriage or stillbirth. Avoid all smoking, herbs, alcohol, and medicines not prescribed by your health care provider. Chemicals in these products affect the formation and growth of the baby. Do not use any products that contain nicotine or tobacco, such as cigarettes and e-cigarettes. If you need help quitting, ask your health care provider. You may receive counseling support and other resources to help you quit. Schedule a dentist appointment. At home, brush your teeth with a soft toothbrush and be gentle whenyou floss. Contact a health care provider if: You have dizziness. You have mild pelvic cramps, pelvic pressure, or nagging pain in the abdominal area. You have persistent nausea, vomiting, or diarrhea. You have a bad smelling vaginal discharge. You have pain when you urinate. You notice increased swelling in your face, hands, legs, or ankles. You are exposed to fifth disease or chickenpox. You are exposed to Bengali measles (rubella) and have never had it. Get help right away if: You have a fever. You are leaking fluid from your vagina. You have spotting or bleeding from your vagina. You have severe abdominal cramping or pain. You have rapid weight gain or loss. You vomit blood or material that looks like coffee grounds. You develop a severe headache. You have shortness of breath. You have any kind of trauma, such as from a fall or a car accident. Summary The first trimester of is from week 1 until the end of week 13 (months 1 through 3). Your body goes through many changes during . The changes vary from woman to woman. You will have routine visits. During those visits, your health care provider will examine you, discuss any test results you may have, and talk with you about how you are feeling. This information is not intended to replace advice given to you by your health care provider. Make sure you discuss any questions you have with your health care provider. Document Released: 08/12/2002 Document Revised: 07/31/2018 Document Reviewed: 07/30/2017 [employer] Patient Education [employer]. Follow Up Care 06/16/2022 14:26:03 With:You Wilkerson Address: [address] [place] [id number] Business (1) When:06/19/2022 18:27:42 Comments:Follow-up with Dr. Wilkerson as instructed. Return to the emergency room if your abdominal pain recurs, vaginal bleeding or any new symptoms. With:TUAN HAAS Address: [address] [place] [address] Business (1) When:06/19/2022 18:27:37 [facility]10-16-2022 Evaluation + Plan note Diagnostic Tests Pending * Group A Strep by PCR 06/16/22 [facility]10-13-2022 Evaluation note* Encounter Date Diagnosis Assessment Notes Treatment Notes Treatment Clinical Notes Jun, Abnormal bleeding time (ICD-10 - R79.1) Blood work reviewed with the patient, she does not have the Factor V gene mutation. PTT is still elevated at 37 but is slightly lower from her April result of 38. She 13 Jun, 2022 Right wrist pain (ICD-10 - M25.531) X-ray reviewed with the patient with unremarkable findings. She continues with pain traveling up her arm when she turns her wrist, with overuse, lifting objects, or applying pressure with pushing on something with that hand. I do believe she may have a TFCC injury advising that this is potentially a strained ligament. She does lift boxes at work daily which is aggravating her pains. Referral initiated to Dr. Galicia for further treatment. Patient is agreeable. [employer] Other 08-03-2022 Evaluation note* Encounter Date Diagnosis Assessment Notes Treatment Notes Treatment Clinical Notes Apr, Wrist pain, right (ICD-10 - M25.531) Patient reports right wrist pain with some weakness when lifing heavy objects. I do want to get an Xray today and we will follow up with her to go over results. In the meantime I am going to give her just a few Ultram #28 to try with the understanding she is not going to get any refill. I will refill ibuprofen as well. Xray or the right wrist/ hand ordered. Apr, GERD (gastroesophageal reflux disease) (ICD-10 - K21.9) refill provided Apr, Miscarriage within last 12 months (ICD-10 - Z87.59) Patient is doing okay s/p the miscarriage. She is following with Dr. Wilkerson. He did do some hormone and genetic testing done by this physician. Finding did show some abnormality, specifically elevated PTT. Patient denies any family hx of bleeding/clotting disorder. Lab work will be ordered to confirm Apr, Abnormal bleeding time (ICD-10 - R79.1) Blood work ordered to rule out abnormalities. [employer] Other 07-20-2022 Evaluation + Plan note Diagnostic Tests Pending * Factor II, DNA Analysis 03/20/22 * Factor V Leiden 03/20/22 * MTHFR Thermolabile Variant, DNA Analysis 03/20/22 * MARK w/Reflex if POS 03/20/22 * Anticardiolipin Antibodies IgG, IgA & IgM 03/20/22 [facility]07-11-2022 Hospital Discharge instructions Patient Education 03/10/2022 22:20:58 Miscarriage Miscarriage A miscarriage is the loss of an unborn baby (fetus) before the 20th week of . Most miscarriages happen during the first 3 months of . Sometimes, a miscarriage can happen before a woman knows that she is . Having a miscarriage can be an emotional experience. If you have had a miscarriage, talk with your health care provider about any questions you may have about miscarrying, the grieving process, and your plans for future . What are the causes? A miscarriage may be caused by: Problems with the genes or chromosomes of the fetus. These problems make it impossible for the babyto develop normally. They are often the result of random errors that occur early in the developmentof the baby, and are not passed from parent to child (not inherited). Infection of the cervix or uterus. Conditions that affect hormone balance in the body. Problems with the cervix, such as the cervix opening and thinning before is at term (cervical insufficiency). Problems with the uterus. These may include: ?A uterus with an abnormal shape. ?Fibroids in the uterus. ?Congenital abnormalities. These are problems that were present at . Certain medical conditions. Smoking, drinking alcohol, or using drugs. Injury (trauma). In many cases, the cause of a miscarriage is not known. What are the signs or symptoms? Symptoms of this condition include: Vaginal bleeding or spotting, with or without cramps or pain. Pain or cramping in the abdomen or lower back. Passing fluid, tissue, or blood clots from the vagina. How is this diagnosed? This condition may be diagnosed based on: A physical exam. Ultrasound. Blood tests. Urine tests. How is this treated? Treatment for a miscarriage is sometimes not necessary if you naturally pass all the tissue that was in your uterus. If necessary, this condition may be treated with: Dilation and curettage (D&C). This is a procedure in which the cervix is stretched open and thelining of the uterus (endometrium) is scraped. This is done only if tissue from the fetus or placenta remains in the body (incomplete miscarriage). Medicines, such as: ?Antibiotic medicine, to treat infection. ?Medicine to help the body pass any remaining tissue. ?Medicine to reduce (contract) the size of the uterus. These medicines may be given if you have a lot of bleeding. If you have Rh negative blood and your baby was Rh positive, you will need a shot of a medicine called Rh immunoglobulinto protect your future babies from Rh blood problems. Rh-negative and Rh-positive refer to whether or not the blood has a specific protein found on the surface of red blood cells (Rh factor). Follow these instructions at home: Medicines Take kdxd-vjq-tcndbsm and prescription medicines only as told by your health care provider. If you were prescribed antibiotic medicine, take it as told by your health care provider. Do not stop taking the antibiotic even if you start to feel better. Do not take NSAIDs, such as aspirin and ibuprofen, unless they are approved by your health care provider. These medicines can cause bleeding. Activity Rest as directed. Ask your health care provider what activities are safe for you. Have someone help with home and family responsibilities during this time. General instructions Keep track of the number of sanitary pads you use each day and how soaked (saturated) they are. Write down this information. Monitor the amount of tissue or blood clots that you pass from your vagina. Save any large amounts of tissue for your health care provider to examine. Do not use tampons, douche, or have sex until your health care provider approves. To help you and your partner with the process of grieving, talk with your health care provider or seek counseling. When you are ready, meet with your health care provider to discuss any important steps you should take for your health. Also, discuss steps you should take to have a healthy in the future. Keep all follow-up visits as told by your health care provider. This is important. Where to find more information [employer]: www.acog.org [place]. Department of Health and Human Services Office of Women s Health: www.womenshealth.gov Contact a health care provider if: You have a fever or chills. You have a foul smelling vaginal discharge. You have more bleeding instead of less. Get help right away if: You have severe cramps or pain in your back or abdomen. You pass blood clots or tissue from your vagina that is walnut-sized or larger. You soak more than 1 regular sanitary pad in an hour. You become light-headed or weak. You pass out. You have feelings of sadness that take over your thoughts, or you have thoughts of hurting yourself. Summary Most miscarriages happen in the first 3 months of . Sometimes miscarriage happens before awoman even knows that she is . Follow your health care provider's instruction for home care. Keep all follow-up appointments. To help you and your partner with the process of grieving, talk with your health care provider or seek counseling. This information is not intended to replace advice given to you by your health care provider. Make sure you discuss any questions you have with your health care provider. Document Released: 02/11/2002 Document Revised: 12/10/2019 Document Reviewed: 09/23/2017 [employer] Patient Education 2019 [employer]. Follow Up Care 03/10/2022 15:02:36 With:You Wilkerson Address: [address] [address] [facility] (1) When:7 to 10 days Comments:follow up in [address] Davis for fever > 100.5 [facility] physician for heavy vaginal bleedingCall for severe abdominal painCall for any problems.Please call if you need to rescheduleMay take 600mg Motrin every 6 hours as needed for uterine cramping [facility]06-07-2022 Hospital Discharge instructions Patient Education 02/05/2022 21:47:03 COVID-19 COVID-19 COVID-19 is a respiratory infection that is caused by a virus called severe acute respiratory syndrome coronavirus 2 (SARS-CoV-2). The disease is also known as coronavirus disease or novel coronavirus. In some people, the virus may not cause any symptoms. In others, it may cause a serious infection. The infection can get worse quickly and can lead to complications, such as: Pneumonia, or infection of the lungs. Acute respiratory distress syndrome or ARDS. This is fluid build-up in the lungs. Acute respiratory failure. This is a condition in which there is not enough oxygen passing from thelungs to the body. Sepsis or septic shock. This is a serious bodily reaction to an infection. Blood clotting problems. Secondary infections due to bacteria or fungus. The virus that causes COVID-19 is contagious. This means that it can spread from person to person through droplets from coughs and sneezes (respiratory secretions). What are the causes? This illness is caused by a virus. You may catch the virus by: Breathing in droplets from an infected person's cough or sneeze. Touching something, like a table or a doorknob, that was exposed to the virus (contaminated) and then touching your mouth, nose, or eyes. What increases the risk? Risk for infection You are more likely to be infected with this virus if you: Live in or travel to an area with a COVID-19 outbreak. Come in contact with a sick person who recently traveled to an area with a COVID-19 outbreak. Provide care for or live with a person who is infected with COVID-19. Risk for serious illness You are more likely to become seriously ill from the virus if you: Are 65 years of age or older. Have a long-term disease that lowers your body's ability to fight infection (immunocompromised). Live in a chcf or long-term care facility. Have a long-term (chronic) disease such as: ?Chronic lung disease, including chronic obstructive pulmonary disease or asthma ?Heart disease. ?Diabetes. ?Chronic kidney disease. ?Liver disease. Are obese. What are the signs or symptoms? Symptoms of this condition can range from mild to severe. Symptoms may appear any time from 2 to 14days after being exposed to the virus. They include: A fever. A cough. Difficulty breathing. Chills. Muscle pains. A sore throat. Loss of taste or smell. Some people may also have stomach problems, such as nausea, vomiting, or diarrhea. Other people may not have any symptoms of COVID-19. How is this diagnosed? This condition may be diagnosed based on: Your signs and symptoms, especially if: ?You live in an area with a COVID-19 outbreak. ?You recently traveled to or from an area where the virus is common. ?You provide care for or live with a person who was diagnosed with COVID-19. A physical exam. Lab tests, which may include: ?A nasal swab to take a sample of fluid from your nose. ?A throat swab to take a sample of fluid from your throat. ?A sample of mucus from your lungs (sputum). ?Blood tests. Imaging tests, which may include, X-rays, CT scan, or ultrasound. How is this treated? At present, there is no medicine to treat COVID-19. Medicines that treat other diseases are being used on a trial basis to see if they are effective against COVID-19. Your health care provider will talk with you about ways to treat your symptoms. For most people, the infection is mild and can be managed at home with rest, fluids, and vyjh-huo-jxgcguf medicines. Treatment for a serious infection usually takes places in a hospital intensive care unit (ICU). It may include one or more of the following treatments. These treatments are given until your symptoms improve. Receiving fluids and medicines through an IV. Supplemental oxygen. Extra oxygen is given through a tube in the nose, a face mask, or a almaguer. Positioning you to lie on your stomach (prone position). This makes it easier for oxygen to get into the lungs. Continuous positive airway pressure (CPAP) or bi-level positive airway pressure (BPAP) machine. This treatment uses mild air pressure to keep the airways open. A tube that is connected to a motor delivers oxygen to the body. Ventilator. This treatment moves air into and out of the lungs by using a tube that is placed in your windpipe. Tracheostomy. This is a procedure to create a hole in the neck so that a breathing tube can be inserted. Extracorporeal membrane oxygenation (ECMO). This procedure gives the lungs a chance to recover by taking over the functions of the heart and lungs. It supplies oxygen to the body and removes carbon dioxide. Follow these instructions at home: Lifestyle If you are sick, stay home except to get medical care. Your health care provider will tell you how long to stay home. Call your health care provider before you go for medical care. Rest at home as told by your health care provider. Do not use any products that contain nicotine or tobacco, such as cigarettes, e- cigarettes, and chewing tobacco. If you need help quitting, ask your health care provider. Return to your normal activities as told by your health care provider. Ask your health care provider what activities are safe for you. General instructions Take kpdp-ohr-xmqkggo and prescription medicines only as told by your health care provider. Drink enough fluid to keep your urine pale yellow. Keep all follow-up visits as told by your health care provider. This is important. How is this prevented? There is no vaccine to help prevent COVID-19 infection. However, there are steps you can take to protect yourself and others from this virus. To protect yourself: Do not travel to areas where COVID-19 is a risk. The areas where COVID-19 is reported change often.To identify high-risk areas and travel restrictions, check the CDC travel website: wwwnc.cdc.gov/travel/notices If you live in, or must travel to, an area where COVID-19 is a risk, take precautions to avoid infection. ?Stay away from people who are sick. ?Wash your hands often with soap and water for 20 seconds. If soap and water are not available, usean alcohol-based hand ice cream machine operator. ?Avoid touching your mouth, face, eyes, or nose. ?Avoid going out in public, follow guidance from your state and local health authorities. ?If you must go out in public, wear a cloth face covering or face mask. ?Disinfect objects and surfaces that are frequently touched every day. This may include: ?Counters and tables. ?Doorknobs and light switches. ?Sinks and faucets. ?Electronics, such as phones, remote controls, keyboards, computers, and tablets. To protect others: If you have symptoms of COVID-19, take steps to prevent the virus from spreading to others. If you think you have a COVID-19 infection, contact your health care provider right away. Tell yourhealth care team that you think you may have a COVID-19 infection. Stay home. Leave your house only to seek medical care. Do not use public transport. Do not travel while you are sick. Wash your hands often with soap and water for 20 seconds. If soap and water are not available, use alcohol-based hand ice cream machine operator. Stay away from other members of your household. Let healthy household members care for children andpets, if possible. If you have to care for children or pets, wash your hands often and wear a mask.If possible, stay in your own room, separate from others. Use a different bathroom. Make sure that all people in your household wash their hands well and often. Cough or sneeze into a tissue or your sleeve or elbow. Do not cough or sneeze into your hand or into the air. Wear a cloth face covering or face mask. Where to find more information Centers for Disease Control and Prevention: www.cdc.gov/coronavirus/2019-ncov/index.html World Health Organization: www.who.int/health-topics/coronavirus Contact a health care provider if: You live in or have traveled to an area where COVID-19 is a risk and you have symptoms of the infection. You have had contact with someone who has COVID-19 and you have symptoms of the infection. Get help right away if: You have trouble breathing. You have pain or pressure in your chest. You have confusion. You have bluish lips and fingernails. You have difficulty waking from sleep. You have symptoms that get worse. These symptoms may represent a serious problem that is an emergency. Do not wait to see if the symptoms will go away. Get medical help right away. Call your local emergency services (911 in the [place] Do not drive yourself to the hospital. Let the emergency medical personnel know if you think you have COVID-19. Summary COVID-19 is a respiratory infection that is caused by a virus. It is also known as coronavirus disease or novel coronavirus. It can cause serious infections, such as pneumonia, acute respiratory distress syndrome, acute respiratory failure, or sepsis. The virus that causes COVID-19 is contagious. This means that it can spread from person to person through droplets from coughs and sneezes. You are more likely to develop a serious illness if you are 65 years of age or older, have a weak immunity, live in a chcf, or have chronic disease. There is no medicine to treat COVID-19. Your health care provider will talk with you about ways to treat your symptoms. Take steps to protect yourself and others from infection. Wash your hands often and disinfect objects and surfaces that are frequently touched every day. Stay away from people who are sick and wear amask if you are sick. This information is not intended to replace advice given to you by your health care provider. Make sure you discuss any questions you have with your health care provider. Document Released: 09/23/2019 Document Revised: 01/13/2020 Document Reviewed: 09/23/2019 [employer] Patient Education 2020 [employer] Follow Up Care 02/05/2022 18:21:01 With:TUAN HAAS Address: [address] [place] [phone] (1) When:Within 3 Day(s) [facility]06-07-2022 Evaluation + Plan noteExtracted from: Title:ED Note Author:Iván Rodriguez DO [place] Date :02/05/22 COVID (U07.1: COVID-19) Orders: ondansetron, 4 mg = 2 mL, Injection, IV Push, Once, Stop date 02/05/22 21:24:00 EDT, STAT, Start date 02/05/22 21:24:00 EDT, 02/05/22 21:24:00 EDT ondansetron, 4 mg = 1 tab(s), Oral, q8hr, # 12 tab(s), Refills(s) 0, Pharmacy: [facility] #[id number], 168, cm, 02/05/22 18:27:00 EDT, Height/Length Dosing, 114, kg, 02/05/22 18:27:00 EDT, Weight Dosing potassium bicarbonate, 25 mEq = 1 tab(s), Tab-Eff, Oral, Once, Stop date 02/05/22 19:54:00 EDT, STAT, Start date 02/05/22 19:54:00 EDT, 02/05/22 19:54:00 EDT promethazine, 12.5 mg = 1 supp, Rectal, q8hr, # 6 EA, Refills(s) 0, Pharmacy: [id number], 168, cm, 02/05/22 18:27:00 EDT, Height/Length Dosing, 114, kg, 02/05/22 18:27:00 EDT, Weight Dosing Influenza A&B Ag Rapid COVID Antigen ([facility]) [facility]05-16-2022 Evaluation + Plan note Diagnostic Tests Pending * Rubella Antibody IgG 01/14/22 * RPR with Conf Rfx 01/14/22 * Hepatitis B Surface Antigen 01/14/22 [facility]05-05-2022 Evaluation + Plan note Diagnostic Tests Pending * Urine Culture 01/03/22 [facility]01-11-2022 Evaluation note* Encounter Date Diagnosis Assessment Notes Treatment Notes Treatment Clinical Notes Sep, Sinus congestion (ICD-10 - R09.81) In house covid and flu test was negative. Patient is aware. Sep, Cough (ICD-10 - R05.9) In house covif and flu test was negative. Patient is aware. [employer] Other 10-29-2021 Evaluation note* Encounter Date Diagnosis Assessment Notes Treatment Notes Treatment Clinical Notes Jun, Sore throat (ICD-10 - J02.9) In house strep test performed with negative results. Jun, Conjunctivitis (ICD-10 - H10.9) Patient presents with right eye redness, this does itch. Patient states all her children have this as well. Above drops precribed. Jun, URI (upper respiratory infection) (ICD-10 - J06.9) Patient was exposed to covid two days ago. Patient has had covid within the past 2 months. Above testing ordered. I did prescribe the above medication and encouraged pt to increase fluid intake, throat lozenges or gargle with mouth wash as needed. Pt is to also take OTC pain medication and fever reducers as needed. [employer] Other 10-28-2021 Evaluation note* Encounter Date Diagnosis Assessment Notes Treatment Notes Treatment Clinical Notes Jun, Contact with and (suspected) exposure to other viral communicable diseases (ICD-10 - Z20.828) Even though COVID RAPID test is NEGATIVE, I am highly suspicious at this time you may be positive due to the symptoms. Recommend patient follow Quarantine guidelines until you follow up with PCP.. Recommend OTC medication such as Mucinex, Sea salt nasal spray, Cepecol, Tylenol, Zyrtec, as they can help with symptoms Jun, Other Additional time spent conducting pre-visit phone call, screening for symptoms, instructions on social distancing, application and removal of PPE, and cleaning of examination room, equipment and supplies was preformed. Patient education given for testing methodology and results. Patient care instructions given in writting by [facility] document. Additional time spent conducting pre-visit phone call, screening for symptoms, instructions on social distancing, application and removal of PPE, and cleaning of examination room, equipment and supplies was preformed. Patient education given for testing methodology and results. Patient care instructions given in writting by [facility] document. [employer] Other 02-01-2017 History general Narrative - Reported* Type Description Date Medical History Childbirth x1 Oct 2016, x1 Nov 019 Medical History 07/17/2018 Medical History Covid-19 positive 04/2021 Surgical History 10/27/16 Hospitalization History see above [facility] Other 02-01-2017 History general Narrative - Reported* Type Description Date Medical History Childbirth x1 Oct 2016, x1 Jul 03 019 Medical History 07/17/2018 Medical History Covid-19 positive 04/2021 Medical History 03/27/2022 Miscarria ge, naturally passed, following with Dr. Wilkerson Surgical History 10/27/16 Hospitalization History see above [employer] Other Evaluation noteNo InformationNort Search to Phone Other evaluation noteNo assessment information available [facility] Work Phone: Evaluation note* Diagnosis Acne vulgaris Other acne Other seborrheic dermatitis Melanocytic nevus of scalp Benign neoplasm of scalp and skin of neck Keratosis pilaris Other specified congenital anomaly of skin [facility] Diagnosis Cervical adenopathy- Primary Enlargement of lymph nodes [facility] Diagnosis Cervical adenopathy- Primary Enlargement of lymph nodes [facility] Diagnosis Pain of right upper extremity- Primary [facility] Other [facility] course Narrative No data available for this section [facility] No data available for this section [facility] instructionsAmbulatory Orders* Referral to ENT Location: None Selected [facility] Work Phone: Progress note No data available for this section [facility] Summary Purpose Family History No Family History Records Found Relationship Condition Age at Onset Recorded Date/T george grandparent Unknown Relationship Condition Age at Onset Recorded Date/T george grandparent Unknown mother Hypertension Unknown father Hypertension Unknown Advance Directives No Advanced Directives Records Found Advance Directive Response Recorded Date/ Time Advance Directives No May 5:13pm Advance Directive Response Recorded Date/ Time Advance Directives No May 4:13pm Advance Directive Response Recorded Date/ Time Advance Directives No August 03, 2024 9:03am Chief Complaint and Reason for Visit Chief Complaint R79.1 M25.531 Chief Complaint Admit Date L ear/ R neck pain and swelling August 04, 2024 10:45am R59.9 August 04, 2024 1 1:27am R59.0 September 06, 2024 2: 57pm Reason for Visit Admit Date Swollen lymph nodes August 04, 2024 1 0:45am Otitis media of left ear August 04, 2 024 10:45am Chief Complaint Admit Date L ear/ R neck pain and swelling August 04, 2024 10:45am R59.9 August 04, 2024 1 1:27am R59.0 September 06, 2024 2: 57pm boils September 09, 2024 2: 35pm Reason for Visit Admit Date Swollen lymph nodes August 04, 2024 1 0:45am Otitis media of left ear August 04, 2 024 10:45am Anemia September 09, 2024 2: 35pm Cervical adenopathy September 09, 2024 2: 35pm Recurrent boils September 09, 2024 2: 35pm Strep throat September 09, 2024 2: 35pm Chief Complaint Admit Date L ear/ R neck pain and swelling August 04, 2024 10:45am R59.9 August 04, 2024 1 1:27am R59.0 September 06, 2024 2: 57pm boils September 09, 2024 2: 35pm 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, 2024 3:30pm Chief Complaint Admit Date L ear/ R neck pain and swelling August 04, 2024 10:45am R59.9 August 04, 2024 1 1:27am R59.0 September 06, 2024 2: 57pm boils September 09, 2024 2: 35pm 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, 2024 3:30pm 1 month f/u October 11, 2024 9:04am Reason for Visit Admit Date Swollen lymph nodes August 04, 2024 1 0:45am Otitis media of left ear August 04, 2 024 10:45am Anemia September 09, 2024 2: 35pm Cervical adenopathy September 09, 2024 2: 35pm Recurrent boils September 09, 2024 2: 35pm Strep throat September 09, 2024 2: 35pm Cervical adenopathy October 11, 2024 9:04am Recurrent boils October 11, 2024 9:04am Family planning October 11, 2024 9:04am hypertension October 11, 2 025 9:04am Chief Complaint Admit Date L ear/ R neck pain and swelling August 04, 2024 10:45am R59.9 August 04, 2024 1 1:27am R59.0 September 06, 2024 2: 57pm boils September 09, 2024 2: 35pm 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, 2024 3:30pm 1 month f/u October 11, 2024 9:04am Right Posterior Lymph Node October 4:42pm Reason for Referral Reason 06/20/22 @ 7:30am right wrist pain; potential TFCC injury per Dr. Dickerson Diagnosis 1 Right wrist pain (M2 5.531) Referral Organization [facility] Referring Provider First Name Tuan Referring Provider Last Name Waldo Referring Provider Specialty Family Prac emmett Referred Organization [facility] Referred Provider Ming Galicia Referred Address [address],[address] Referred Provider Specialty Sport Medici ne Referral Priority Routine Referral Appointment Date 2022-06-20 General Notes Charmaine Howard 022 02:21:44 PM >Received today and sent P2P Charmaine Howard 06/17/2022 09:18:51 AM >Patient has been scheduled Additional Source Comments INFORMATION SOURCE (unrecogn ized section and content) DATE CREATED AUTHOR 07/08/2021 [facility] DATE CREATED AUTHOR AUTHOR'S ORGANIZ ATION 02/20/2024 [facility] DATE CREATED AUTHOR AUTHOR'S ORGANIZ ATION 03/26/2024 [facility] DATE CREATED AUTHOR AUTHOR'S ORGANIZ ATION 04/18/2024 [facility] DATE CREATED AUTHOR AUTHOR'S ORGANIZ ATION 04/19/2024 [facility] DATE CREATED AUTHOR AUTHOR'S ORGANIZ ATION 05/01/2024 [facility] DATE CREATED AUTHOR AUTHOR'S ORGANIZ ATION 07/02/2024 [facility] DATE CREATED AUTHOR AUTHOR'S ORGANIZ ATION 07/09/2024 [facility] DATE CREATED AUTHOR AUTHOR'S ORGANIZ ATION 07/12/2024 [facility] DATE CREATED AUTHOR AUTHOR'S ORGANIZ ATION 07/13/2024 [facility] DATE CREATED AUTHOR AUTHOR'S ORGANIZ ATION 07/17/2024 [facility] DATE CREATED AUTHOR AUTHOR'S ORGANIZ ATION 11/23/2024 [facility] DATE CREATED AUTHOR AUTHOR'S ORGANIZ ATION 02/13/2025 [facility] DATE CREATED AUTHOR AUTHOR'S ORGANIZ ATION 03/21/2025 [facility] DATE CREATED AUTHOR AUTHOR'S ORGANIZ ATION 05/14/2025 [facility] DATE CREATED AUTHOR AUTHOR'S ORGANIZ ATION 05/21/2025 [facility] REASON FOR VISIT (unrecogniz ed section and content) Reason Comments Follow-up Reason Comments Swollen Glands New patient : enlarg ed lymph nodes Specialty Diagnoses / Procedures Referred By Hector cummings Referred To Contact Otolaryngology Diagnoses Localized enlarged lymph nodes Procedures MT OFFICE/OUTPATIENT NEW MODERATE MDM 45 MINUTES Tuan Haas MD [address] [place] [address] Phone: tel: fax: Herman Thomas, [address] [place] [address] Phone: tel: fax: Referral ID Status Reason Start Date Expiration Date Visits Re quested Visits Authorized [id number] Closed 09/10/2024 03/09/2025 1 1 Reason Comments Post-op Reason Comments Pain Arm and shoulder tank n after lymph node biopsy Care Team (unrecognized sect ion and content) Team Status: Inactive Member Role Status Dates Tuan Haas DO Primary Care Provider, Attending Provi april Active Team Status: Active Member Role Status Dates Tuan Haas DO Primary Care Provider Active Team Status: Inactive Member Role Status Dates Tuan Haas DO Primary Care Provide r, Attending Provider Active Start: August 04, 2024 End: August 04, 2024 Team Status: Inactive Member Role Status Dates Tuan Haas DO Primary Care Provide r, Attending Provider Active Start: September 06, 2024 End: September 06, 2024 Team Status: Inactive Member Role Status Dates Tuan Haas DO Primary Care Provide r, Attending Provider Active Start: September 09, 2024 End: September 09, 2024 Team Status: Inactive Member Role Status Dates Tuan Haas DO Attending Provider Active Start: September 09, 2024 End: September 09, 2024 Team Status: Inactive Member Role Status Dates Tuan Haas DO Primary Care Provide r, Attending Provider Active Start: October 11, 2024 End: October 11, 2024 Physician Extender Relationship Specialty Start Date End Date Tuan Haas MD [address] [place] [phone] PCP - General 10/18/24 Herman Thomas DO [address] [place] [address] Otolaryngology 10/18/24 Physician Extender Relationship Specialty Start Date End Date Tuan Haas MD [facility] [place] [phone] PCP - General 10/18/24 Herman Thomas DO [address] [place] [address] Otolaryngology 10/18/24 Physician Extender Relationship Specialty Start Date End Date Tuan Haas MD [address] [place] [phone] PCP General 10/18/24 Herman Thomas DO [address] [place] [address] Otolaryngology 10/18/24 Team Status: Inactive Member Role Status Dates Tuan Haas DO Primary Care Provider Active Sta rt: October 19, 2024 End: October 19, 2024 Herman Thomas DO Attending Provider Active S tart: October 19, 2024 End: October 19, 2024 Physician Extender Relationship Specialty Start Date End Date Tuan Haas DO [facility] 10/18/24 Herman Thomas DO [address] [place] [address] Otolaryngology 10/18/24 Physician Extender Relationship Specialty Start Date End Date Tuan Haas DO [facility] 10/18/24 Herman Thomas DO [address] [place] [address] Otolaryngology 10/18/24 Goals (unrecognized section and content) Goals may be documented in a n alternate section FOR RECORDS PERTAINING TO PATIENTS WHO ARE OR HAVE BEEN ENROLLED IN A CHEMICAL DEPENDENCY/SUBSTANCEABUSE PROGRAM, SOME INFORMATION MAY BE OMITTED. This clinical summary was aggregated from multiple sources. Caution should be exercised in using it in the provision of clinical care. This summary normalizes information from multiple sources, and as a consequence, information in this document may materially change the coding, format and clinical context of patient data. In addition, data may be omitted in some cases. CLINICAL DECISIONS SHOULD BE BASED ON THE PRIMARY CLINICAL RECORDS. [facility] [employer] [facility]. provides no warranty or guarantee of the accuracy or completeness of information in this document.
--- OUTSIDE RECORDS SUMMARY | 2025-05-24 23:12 | XMS_ITS | Clinical Summary ---
Author Organization [facility] Healthcare Address [address] [place] [address] Care Team Providers Care Audio Experience Expert Name Role Phone Tuan Booker DO Primary Care Provider [phone] Herman Thomas DO Unavailable [phone] Allergies No known active allergies Medications MV-Min-Fe Fum-FA-DHA ( 1 PO) Take by mouth Active clindamycin (Cleocin T) 1 % lotionIndicatio ns:Acne vulgaris Apply thin later to affected areas on the body during flares, 30 day supply 60 mL 11 4 Active Additional Information Patient not taking.Reported on 02/07/2025 fluocinonide (Lidex) 0.05 % external solutionIndicat ions:Other seborrheic dermatitis Apply to affected areas on the scalp, up to once a day when flared, 30 day supply 60 mL 11 4 Active Additional Information Patient not taking.Reported on 02/07/2025 benzoyl peroxide 5 % gelIndications: Acne vulgaris Apply to face once a day, in the evening 30 day supply 60 g 11 4 Active Additional Information Patient not taking.Reported on 02/07/2025 metoprolol succinate XL (Toprol-XL) 25 MG 24 hr tablet Take 25 mg by mouth Daily 5 Active amoxicillin-cla vulanate (Augmentin) 500-125 MG tablet 5 Active omeprazole (PriLOSEC) [address] capsule 5 Active Jencycla 0.35 MG tablet Take 1 tablet by mouth Daily 5 Active Active Problems No known active problems Resolved Problems Problem Noted Date Diagnosed Date Resolved Date Acid reflux 10/01/2024 10/01/2024 Anemia 10/01/2024 10/01/2024 Cervical adenopathy 10/01/2024 10/01/19 Enlarged lymph node in neck 10/01/2024 10/01/2024 History of 10/01/2024 10/01/2024 Neck pain 10/01/2024 10/01/2024 Obesity with body mass index 30 or greater 10/01/2024 10/01/2024 Recurrent boils 10/01/2024 10/01/2024 Immunizations Immunization Administration Dates Next Due DTaP, Unspecified 04/22/2005, 1,1999,1999,1999 Hep B, Adolescent or Pediatric 01/30/2000,1999,1999 Hib (PRP-T) 09/25/2000, 0,1999,1998 IPV 04/22/2005, 0,1999,1998 Influenza, injectable, quadr ivalent, preservative free 07/09/2019 Influenza, seasonal, injectable 07/07/2019 MMR 04/22/2005,09/25/2000 Polio, Unspecified 04/22/2005, 0,1999,1998 Tdap 05/27/2023, 9,10/29/2016,2012,05/05/2012 Family History Relation Name Status Comments Brother Alive Daughter Alive Father Alive Mother Alive Sister Alive Son Alive Social History Tobacco Use Types Packs/Day Years Used Date Smoking Tobacco: Never Smokeless Tobacco: Never Tobacco Cessation:Counseling Given: Not Answered Alcohol Use Standard Drinks/Week Comments Never 0 (1 standard drink = 0.6 oz pur e alcohol) Caffeine: none Comments Unknown Sex and Gender Information Value Date Recorded Sex Assigned at Not on file Legal Sex Female 6:51 PM EDT Gender Identity Not on file Sexual Orientation Not on file Last Filed Vital Signs Vital Sign Reading Time Taken Comments Blood Pressure 118/58 12/03/2018 12:00 PM EDT Pulse - - Temperature - - Respiratory Rate - - Oxygen Saturation - - Inhaled Oxygen Concentration - - Weight 128 kg (282 lb) 02/07/2025 2:53 PM EDT Height 170.2 cm (5' 7 ) 02/07/2025 2:53 PM EDT Body Mass Index 44.17 02/07/2025 2:53 PM EDT Plan of Treatment Not on file Insurance [employer] Care Teams Audio Experience Expert Relationship Specialty Start Date End Date Tuan Booker DO [address] [place] [address] PCP - General 10/18/24 Herman Thomas DO [address] [place] [address] (work) Otolaryngology 10/18/24
[2025-05-24] MEDS: KETOROLAC TROMETHAMINE 30 MG/ML VIAL IVP (23:48)
[2025-05-24] MEDS: METHYLPREDNISOLONE SOD SUCC PF 125 MG/2 ML VIAL IVP (23:48)
[2025-05-24] MEDS: 0.9 % SODIUM CHLORIDE 1,000 ML 1000 ML IV (23:48)
[2025-05-24] MEDS: DIPHENHYDRAMINE HCL 50 MG/ML VIAL 12.5 MG IVP (23:48)
[2025-05-24] MEDS: METOCLOPRAMIDE HCL 10 MG/2 ML VIAL IVP (23:48)
[2025-05-25] VITALS: O2SAT 99
--- NOTE | 2025-05-25 | ED_ITS ---
HPI HPI - General Adult General Chief complaint: Nausea/Vomiting/Diarrhea Stated complaint: VOMITING,HEADACHE Time Seen by Provider: 05/24/25 23:11 Source: patient Mode of arrival: walk-in Limitations: no limitations History of Present Illness HPI narrative: This 25-year-old female with a history of migraine headaches presents for evaluation of a migraine headache that started yesterday afternoon around 2 PM and became worse this evening. The patient had taken ibuprofen earlier in the day but she started developing nausea and states that for approximately an hour and a half she vomited continually despite taking the Zofran. She states she feels like she is becoming dehydrated. This was a typical migraine for her. The patient is seeing Dr. Wilkerson, [facility] in [place] tomorrow. She was supposed to have an IUD placed 2 weeks ago and at that time had a urine test done that was positive. She followed up for blood work and was told that she was likely having a miscarriage. She is not having any abdominal pain or vaginal bleeding at this time. She thinks that she may be stressed out which is making her headache worse. She denies any thunderclap presentation of the headache. She has no neck pain or stiffness. She has a global throbbing headache. She has not had any fever. She denies any chest pain or shortness of breath. She denies any abdominal pain. Related Data Previous Rx's ?Medication ?Instructions ?Recorded naproxen 500 mg tablet 500 mg PO Q12H PRN pain #20 tabs 08/07/24 prednisone 50 mg tablet 50 mg PO DAILY 5 days #5 tab s 08/07/24 Allergies Allergy/AdvReac Type Severity Reaction Status Date / Time No Known Drug Allergies Allergy Verified 05/24/25 23:15 Review of Systems ROS Status of ROS 10 or more systems reviewed and unremark able except as noted in history and below PFSH PFSH Social History Little interest or pleasure in doing things: not at all Feeling down, depressed, or hopeless: not at all Exam Narrative Exam Narrative: Vital signs and Nursing Notes reviewed: Patient is afebrile with normal pulse, normal blood pressure, she is not hypoxic with pulse ox of 100% on room air General: Awake, alert, oriented, no acute distress, lying comfortably on the stretcher, no active vomiting, GCS 15 HEENT: Normocephalic atraumatic, mucous membranes are moist and pink, eyes are clear, normal conjunctiva, mild photophobia noted vision is grossly intact Neck: Supple, no meningeal signs, no anterior or posterior cervical lymphadenopathy Chest: Lungs are clear to auscultation with good air entry, there is no wheezing rhonchi or rales appreciated no accessory muscle use, patient is speaking in complete sentences-no chest wall tenderness to palpation CVS: Regular rate and rhythm S1-S2, no murmurs rubs or gallops, pulses are brisk and equal bilaterally ABD: Soft, nondistended, nontender, no rebound guarding or rigidity, bowel sounds are normal, no pulsatile masses appreciated Extremities: Moving all extremities, no lower extremity tenderness or swelling noted, negative Homans' sign, pulses are brisk and equal bilaterally Skin: Normal in appearance without rash,pallor, petechiae or purpura Neuro: No focal deficits Constitutional Vital Signs, click to edit/add: Last Vital Signs Temp 98.4 F 05/24/25 23:15 Pulse 72 05/24/25 23:15 Resp 18 05/24/25 23:15 BP 123/84 05/24/25 23:15 Pulse Ox 100 05/24/25 23:15 O2 Del Method Room Air 05/24/25 23:15 Course Vital Signs Vital signs: Vital Signs Temperature 98.4 F 05/24/25 23:15 Pulse Rate 72 05/24/25 23:15 Respiratory Rate 18 05/24/25 23:15 Blood Pressure 123/84 05/24/25 23:15 Pulse Oximetry 100 05/24/25 23:15 Oxygen Delivery Method Room Air 05/24/25 23:15 Temperature 98.4 F 05/24/25 23:15 Pulse Rate 72 05/24/25 23:15 Respiratory Rate 18 05/24/25 23:15 Blood Pressure 123/84 05/24/25 23:15 Pulse Oximetry 100 05/24/25 23:15 Oxygen Delivery Method Room Air 05/24/25 23:15 Medical Decision Making MDM Narrative Medical decision making narrative: This 25-year-old female presents for evaluation of a migraine headache that started around 2 PM yesterday. Despite taking Zofran she had approximately an hour and a half of vomiting. She states she feels like she is becoming dehydrated. She has a global throbbing headache. This is not the worst headache of her life, there is no thunderclap presentation, nuchal rigidity or fever. She is otherwise well-appearing. She is also being seen by her [facility] tomorrow after having a positive test then a follow-up lab test that revealed she was likely not going to have a viable . She is not having abdominal pain or vaginal bleeding. Her vital signs are stable. An IV was placed and she was medicated with IV fluids, Solu-Medrol, Toradol, Reglan and Benadryl. On reevaluation she is sleeping and feeling much better. Her beta quantitative hCG is 14. She will be discharged home after the IV fluids finish with a prescription for Reglan. Lab Data Lab results reviewed: Yes I reviewed the patient's lab results Labs: Lab Results 05/24/25 Range/Units 23:35 HCG, Quant 14 mIU/mL Discharge Plan Discharge Chief Complaint: Nausea/Vomiting/Diarrhea Clinical Impression: Headache, migraine Patient Disposition: Home, Self-Care Time of Disposition Decision: 00:26 Condition: Good Prescriptions / Home Meds: No Action prednisone 50 mg tablet 50 mg PO DAILY 5 Days Qty: 5 0RF naproxen 500 mg tablet 500 mg PO Q12H PRN (Reason: pain) Qty: 20 0RF Print Language: [place] Instructions: Migraine Headache (ED) Additional Instructions: Your beta quantitative hCG was 14 today. Please follow-up closely with Dr. Wilkerson. Referrals: Tuan Booker DO [Primary Care Provider] - 1 week
[2025-05-25 00:01] VITALS: BP 108/69
[2025-05-25 00:10] VITALS: O2SAT 97
[2025-05-25 00:20] VITALS: O2SAT 97
[2025-05-25 00:30] VITALS: O2SAT 96
--- NOTE | 2025-05-25 01:04 | PC.NURSE ---
i gave this patient verbal and written discharge orders and this patient voices yes to understanding these. at time of discharge this patient voice no concerns or needs and shows no signs of distress
== END 2025-05-25 01:06 | disposition home or self-care (01) ==
PROVIDERS: Emergency Provider Emergency Medicine; PCP Family Medicine
DX: G43.909 Migraine, unspecified, not intractable, without status migrainosus (principal)
CPT/HCPCS: 36415; 84702; 96361; 96374; 96375; 99284; J1200; J1885; J2765; J2919

== ENCOUNTER 2025-07-29 01:19 | Emergency (ER) | payer OTHER, SELFPAY ==
--- OUTSIDE RECORDS SUMMARY | 2017-08-27 06:56 | XMS_ITS | Continuity of Care Document ---
Author Organization [facility] Address [address] [place] [address] Phone Care Team Providers Care Life Teacher Name Role Phone Zoran Handy MD Unavailable Unavailable Advance Directives Directive Yes / No Effective Date File Name No Information Encounters Encounter Description Practice Location Reason(s) For Visit Diagnoses Date Provider Providers Copied on Encounter [facility], [address] [place], [place], [id number], [place] tel:[phone] [facility] No Information Ole Meehan. [address] [place] [address], [place], [id number], [place]. tel:[phone] Family History Family Member Type Diagnosis Age At Onset No Information Payers Payer name Insurance type Covered alliance party ID Authoriza tion(s) No Information Social History Type Description Quantity Date Captured Comments Sex Female Smoking Status No Information Sexual Orientation Straight or heterosexual Gender Identity Female Chief Complaint And Reason For Visit No Information Reason For Referral Reason For Referral No Information History Of Present Illness Encounter Date Complaint History Of Prese nt Illness No Information Functional Status Date Functional Assessmen t No Information Instructions Date Instruction Additional Infor mation No Information Assessments Type Assessment Date No Information Patient Care Teams Name Effective Dates (start - stop) Status Members No Information
[2025-07-29 01:23] VITALS: BP 122/80; PULSE 92; TEMP 36.6; O2SAT 99; BMI 43.1
[2025-07-29 01:41] LABS: Glucose Urine UA NEGATIVE (NEGATIVE)
[2025-07-29 01:49] LABS: Cast Seen? NONE SEEN #/LPF (NONE SEEN); Crystals Seen? None Seen #/HPF (None Seen); Urine Culture Indicated YES-FRMC
--- OUTSIDE RECORDS SUMMARY | 2025-07-29 02:07 | XMS_ITS | CCD ---
Author Organization [facility] [place] Care Team Providers Care Materials Management Clerk Name Role Phone DR TUAN HAAS Attending Unavailable WALDO, DR DICKERSON Consulting Unavailable WALDO, DR DICKERSON Admitting Unavailable TUAN HAAS Primary Care Physician Rosmery PHAM Unavailable Rosmery Camacho Unavailable Tuan Haas Unavailable DO Tuan Haas Primary Care Provider DO Tuan Haas Attending Provider [phone] DO Tuan Haas Primary Care Provider DO Tuan Haas Attending Provider [phone] You Wilkerson Admitting Unavailable Rhea, You Greco Attending Unavailable Rhea, You Greco Admitting Unavailable Rhea, You Greco Attending Unavailable MARIA INES, Russel Crouch Admitting Unavailable MARIA INESRussel Attending Unavailable Rhea, You Greco Attending Unavailable Rhea, You Greco Admitting Unavailable Rhea, You Greco Admitting Unavailable Rhea, You Greco Attending Unavailable Rhea, You Greco Admitting Unavailable Rhea, You Greco Attending Unavailable Rhea, You Greco Attending Unavailable Rhea, You Greco Admitting Unavailable Rhea, You Greco Admitting Unavailable Rhea, You Greco Attending Unavailable Hajdari, Astrit H Attending Unavailable Melissa Yates Attending Unavailable Rhea, You Greco Attending Unavailable Rhea, You Greco Admitting Unavailable Rhea, You Greco Attending Unavailable Rhea, You Greco Attending Unavailable Rhea, You Greco Admitting Unavailable Rhea, You Greco Attending Unavailable Rhea, You Greco Admitting Unavailable Rhea, You Greco Attending Unavailable Rhea, You Greco Admitting Unavailable Rhea, You Greco Attending Unavailable Rhea, You Greco Admitting Unavailable Rhea, You D Attending Unavailable Rhea, You Greco Admitting Unavailable Rhea, You Greco Attending Unavailable Rhea, You D Admitting Unavailable Rhea, You Greco Attending Unavailable Rhea, You Greco Attending Unavailable Rhea, You Greco Attending Unavailable Rhea, You Greco Admitting Unavailable Rhea, You Greco Attending Unavailable Rhea, You Greco Admitting Unavailable Rhea, You Greco Attending Unavailable Rhea, You Greco Admitting Unavailable Unavailable Primary Care Provider Unavailzena e Tuan Haas DO Primary Care Provider Waldo FLORES, Tuan Attending Provider Tuan Haas MD Primary Care Provider [phone] Murreyesk DO, Herman Lui Unavailable [phone] Murcek DO, Herman Attending Provider Waldo FLORES, Tuan Matthews Primary Care Provider [phone] Rhea, You Greco Admitting Unavailable Rhea, You Greco Attending Unavailable MURCEK, HERMAN Lui Attending Unavailable KUNTUAN Greer Referring Unavailable MURCEK, HERMAN W Attending Unavailable SHEMAR LYONS Attending Unavailable MURCEK, HERMAN W Attending Unavailable MURCEK, HERMAN Lui Attending Unavailable Rhea, You Greco Attending Unavailable Rhea, You Greco Admitting Unavailable Rhea, You Greco Attending Unavailable Rhea, You Greco Admitting Unavailable KunTuan greer DO Primary Care Provider Kristie Lopez DO Attending Provider Richie Luevano DO Attending Provider Tuan Haas DO Primary Care Provider [phone] Kristie Lopez DO Attending Provider [phone] Richie Luevano DO Attending Provider Tuan Haas DO Attending Provider Tuan Haas Primary Care Unavailable Richie Luevano Attending Unavailable Richie Luevano Admitting Unavailable Tuan Haas Primary Care Unavailable Murcek, Herman Attending Unavailable Murcek, Herman Admitting Unavailable KunTuan greer Admitting Unavailable KunTuan greer Attending Unavailable Kuns, Tuan Admitting Unavailable Kuns, Tuan Attending Unavailable Kuns, Tuan Primary Care Unavailable Kuns, Tuan Admitting Unavailable Tuan Haas Attending Unavailable Tuan Haas Primary Care Unavailable Tuan Haas Primary Care Unavailable Herman Thomas Attending Unavailable Herman Thomas Admitting Unavailable Medications Current Medications MedicationDrug Class(es)DatesSig (Normalized)Sig (Original)amoxicillin 500 mg / clavulanate 125 mg oral tablet (12 sources)Penicillin-class AntibacterialStart: 40-21-1434nrusstdnhyl- clavulanate (Augmentin) 500-125 MG tablet 10/28/2024 ActiveStart: 09-09-2024 End: 89-86-8482cpso 1 tablet by mouth twice dailyAmoxicillin-Pot Clavulanate 875-125 mg tablet Discontinued 1 TAB PO Twice daily 20 0 September 09, 2024 12:00am October 11, 2024 9:34amatropine sulfate 0.025 mg / diphenoxylate hydrochloride 2.5 mg oral tablet (4 sources)Anticholinergic, Cholinergic Muscarinic Antagonist, Antidiarrheal Start: 58-78-8067Xmfxnqi oral tablet 2 tab(s), Oral, QID for loose stools, 24 tab(s), Refill(s) 0 Start Date: 10/31/19tatus: OrderedAugmentin Tablets 875 MG (7 sources)Start: 92-83-0152cnic 1 tablet by mouth every twelve hoursAugmentin Tablets 875 MG 1 tablet oral bid for 10 days Sep, Activecephalexin 500 mg oral tablet (20 sources)Cephalosporin AntibacterialStart: 97-64-1391igrt 1 tablet by mouth every eight hoursCephalexin 500 MG 1 tablet Orally Three times a day for 10 days Sep, ActiveStart: 28-83-9628evcf 1 capsule by mouth every eight hours Cephalexin 500 MG 1 capsule Orally TID for 10 days Jun, ActiveStart: 82-66-3744vzyb 1 capsule by mouth every twelve hoursKeflex 500 mg Cap 500 mg = 1 cap(s), Oral, q12hr, # 20 cap(s), Refills(s) 0, [facility] [id number] Start Date: 09/03/18 Status: OrderedCimetidine (10 sources)Histamine-2 Receptor AntagonistStart: 15-91-2997nuntfnplrbe 10 mg/ml topical lotion (14 sources)Lincosamide AntibacterialStart: 29-73-2542yyinpieahvz (Cleocin T) 1 % lotion Indications: Acne vulgaris Apply thin later to affected areas onthe body during flares, 30 day supply 60 mL 11 09/11/2023 ActiveFolinic-Plus 4-50-2 MG (4 sources)Folinic-Plus 4-50-2 MG as directed Orally ActiveFolinic-Plus oral tablet (15 sources)Start: 62-42-3257Bxqospz-Plus oral tablet Refill(s) 0 Start Date: 01/01/23 Status: Orderedibuprofen 600 mg oral tablet (20 sources)Nonsteroidal Anti-inflammatory DrugStart: 93-82-2269uqmg 1 tablet by mouth every six hoursibuprofen 600 mg Tab 600 mg = 1 tab(s), Oral, q6hr, # 15 tab(s), Refills(s) 0, Pharmacy: [facility]/pharmacy #[id number], 170.1, cm, 07/12/24 7:12:00 EST, Height/Length Dosing, 139, kg, 07/07/24 12:56:00 EST, Weight Dosing Start Date: 07/14/24 Status: Ordered Quantity: 15.0 Unit: tab(s) Repeat number: 1 Start: 96-22-5974bzpv 1 tablet by mouth every six hoursibuprofen 600 mg Tab 600 mg = 1 tab(s), Oral, q6hr, # 15 tab(s), Refills(s) 0, [id number], 170.2, cm, 05/26/23 7:59:00 EDT, Height/Length Dosing, 137.5, kg, 05/26/23 7:59:00 EDT, Weight Dosing Start Date: 05/28/23 Status: Orderedtake 1 tablet by mouth three times daily at mealtime as neededIbuprofen 800 MG 1 tablet with food or milk as needed Orally Three times a day as needed ActiveIbuprofen 800 MG 1 tablent Orally every 4-6 hours as needed Activemetoclopramide 10 mg oral tablet (8 sources)Dopamine-2 Receptor AntagonistStart: 68-71-8440ohvs 1 tablet by mouth every six hoursReglan 10 mg Tab 10 mg = 1 tab(s), Oral, q6hr, # 12 tab(s), Refills(s) 0, Pharmacy: [facility]/pharmacy #[id number], 170, cm, 12/03/23 22:08:00 EDT, Height/Length Dosing, 134.5, kg, 12/03/23 22:08:00 EDT, Weight Dosing Start Date: 12/03/23 Status: Orderedmodafinil 100 mg oral tablet (11 sources)Sympathomimetic-like AgentStart: 86-79-7619kpae 1 tablet by mouth every twenty-four hoursModafinil 100 MG 1 tablet in the morning Orally Once a day May, Activenaproxen 500 mg oral tablet (4 sources)Nonsteroidal Anti-inflammatory DrugStart: 84-59-2634rwpw 1 tablet by mouth twice daily at mealtimenaproxen 500 mg Tab 500 mg = 1 tab(s), Oral, BID, with food, # 14 tab(s), Refills(s) 0 Start Date: 01/30/21 Status: Orderedofloxacin 3 mg/ml ophthalmic solution (1 source)Quinolone AntimicrobialStart: 01-01-2023 End: 09-32-2287svesphcbp Opth 0.3% Kim 2 drop(s), OPTH, QID for 7 day(s), 5 mL, Refill(s) 0, [facility] #[id number], 169,cm, 01/01/23 12:32:00 EDT, Height/Length Dosing, 127, kg, 01/01/23 12:32:00 EDT, Weight Dosing Start Date: 01/01/23 Stop Date: 01/08/23 Status: Orderedolmesartan medoxomil 20 mg oral tablet (2 sources)Angiotensin 2 Receptor BlockerStart: 99-60-1061ogle 1 tablet by mouth once dailyondansetron 4 mg disintegrating oral tablet (16 sources)Serotonin-3 Receptor AntagonistStart: 05-26-2025 End: 50-13-2667uzxt 1 tablet by mouth every eight hours as needed for nausea and vomitingStart: 49-01-6122tcoh 1 tablet by mouth every twenty-four hours Ondansetron HCl 4 MG 1 tablet Orally Once a day for 30 day(s) Aug, ActiveStart: 21-80-9603zypm 1 tablet by mouth three times dailyZofran ODT 4 mg Tab 4 mg = 1 tab(s), Oral, TID, # 8 tab(s), Refills(s) 0 Start Date: 10/31/19 Status:OrderedpredniSONE 20 mg oral tablet (6 sources)Start: 98-03-9525plhxwhYDHV 20 MG 1 tablet with food or milk Orally 1 tablet twice a day x 5 days , 1 tablet once a day x 5 days for 10 days Sep, ActivePrenatal Multivitamins (20 sources)Start: 54-69-8246tbon 1 tablet by mouth once dailyPrenatal Multivitamins 1 tab(s), Oral, Daily, Refill(s) 0, Prophylaxis Start Date: 10/18/16 Status: Ordered Repeat number: 1Start: 20-39-5834yplo 1 tablet by mouth once dailyPrenatal Multivitamins 1 tab(s), Oral, Daily, Refill(s) 0, Prophylaxis Start Date: 10/18/16 Status: OrderedPrenatal MV-Min-Fe Fum-FA-DHA ( 1 PO) (14 sources) MV-Min-Fe Fum-FA-DHA ( 1 PO) Take by mouth Active MV-Min-Fe Fum-FA-DHA ( 1 PO) Take by mouth. Activepromethazine hydrochloride 12.5 mg rectal suppository (1 source)PhenothiazineStart: 41-07-8416cjhd 12.5 mg rectal route every eight hoursPhenergan 12.5 mg Supp 12.5 mg = 1 supp, Rectal, q8hr, # 6 EA, Refills(s) 0, Pharmacy: [id number], 168, cm, 02/05/22 18:27:00 EDT, Height/Length Dosing, 114, kg, 02/05/22 18:27:00 EDT, Weight Dosing Start Date: 02/05/22 Status: Orderedtobramycin 3 mg/ml ophthalmic solution (10 sources)Aminoglycoside AntibacterialStart: 08-72-0587trjg 1 drop(s) into the eye(s) every four hoursTobramycin 0.3 % 1 drop into affected eye Ophthalmic every 4 hrs Jun, ActiveStart: 27-14-9732caoPFZrh hydrochloride 50 mg oral tablet (4 sources)Opioid AgonistStart: 26-17-4509lhzy 1 tablet by mouth twice daily as neededtraMADol HCl 50 MG 1 tablet as needed Orally BID as needed Jun, ActiveStart: 27-41-6303uqwc 1 tablet by mouth twice daily as neededtraMADol HCl 50 MG 1 tablet as needed Orally BID as needed Apr, ActiveZofran ODT 4 mg Tab-Dis (1 source)Start: 34-03-8739nban 1 tablet by mouth every eight hoursZofran ODT 4 mg Tab-Dis 4 mg = 1 tab(s), Oral, q8hr, # 12 tab(s), Refills(s) 0, [id number], 168, cm, 02/05/22 18:27:00 EDT, Height/Length Dosing, 114, kg, 02/05/22 18:27:00EDT, Weight Dosing Start Date: 02/05/22 Status: Ordered Completed/Discontinued Medications MedicationDrug Class(es)DatesSig (Normalized)Sig (Original)amoxicillin 875 mg oral tablet (2 sources)Penicillin-class AntibacterialStart: 05-26-2025 End: 33-12-0936tlfv 1 tablet by mouth twice dailyAmoxicillin 875 mg tablet Discontinued 875 MG PO Twice daily 14 May 25, 2025 11:00pm July 06, 2025 11:26am Take 1 tablet twice daily for 7 days.aspirin 81 mg delayed release oral tablet (12 sources)Platelet Aggregation Inhibitor, Nonsteroidal Anti-inflammatory Drug Start: 08-04-2024 End: 97-70-1907nidj 1 tablet by mouth once dailyAspirin 81 mg tablet,delayed release (DR/EC) Discontinued 81 MG PO Daily August 04, 2024 12:00amFebruary 2024 5:10pmStart: 41-57-8032cuqi 1 tablet by mouth once dailyaspirin 81 mg oral tablet 81 mg = 1 tab(s), Oral, Daily, # 30 tab(s), Refills(s) 0, Blood Thinner Start Date: 06/11/18 Status: Orderedazithromycin 250 mg oral tablet (20 sources)Macrolide AntimicrobialStart: 01-07-2025 End: 98-44-5893Srshcsxxxxfs (Zithromax Z-Braxton) 250 mg tablet Discontinued 0 PO .COMPLEX 6 1 January 06, 2025 11:00pm May 26, 2025 9:48am For 250 mg dose pack: take 500 mg today (day 1), then 250 mg for 4 days (days 2-5) POStart: 01-28-2024 End: 49-10-5663Zyavaqaqiqmg (Zithromax Z-Braxton) 250 mg tablet Discontinued 250 MG PO .COMPLEX 6 0 August 042:00am September 09, 2024 2:47pm as directed zpak instructionsStart: 42-94-6345Yjoiqpyaf Z-Braxton 250 MG as directed Orally as directed Sep, ActiveStart: 08-12-8885Fmbzzknzk Z-Braxton 250 MG 2 tablet on the first day, then 1 tablet daily for 4 days Orally Once a day for 5 day(s) Jan, ActiveStart: 58-75-6617bjinbsb peroxide 0.05 mg/mg topical gel (20 sources)Start: 09-09-2024 End: 01-03-0125Vkuexwp Peroxide 5 % gel Discontinued TOPICAL September 09, 2024 12:00am October 19, 2024 5:10pmStart: 09-62-1872sfvwwos peroxide 5 % gel Indications: Acne vulgaris Apply to face once a day, in the evening 30 daysupply 60 g 11 04/20/2024 Activecefdinir 300 mg oral capsule (13 sources)Cephalosporin AntibacterialStart: 09-22-2024 End: 73-18-9459vknb 1 capsule by mouth twice dailyCefdinir 300 mg capsule Discontinued 300 MG PO Twice daily 20 10 September 22, 2024 12:00am October 11, 2024 9:34amStart: 08-04-2024 End: 70-93-1256rqpc 1 capsule by mouth once dailyCefdinir 300 mg capsule Discontinued 300 MG PO Daily 7 August 04, 2024 12:00am September 09, 2024 2:47pmferrous sulfate 325 mg oral tablet (11 sources)Start: 09-09-2024 End: 45-29-9660bdhi 1 tablet by mouth every other dayFerrous Sulfate (Feosol) 325 mg (65 mg iron) tablet Discontinued 325 MG PO Q2D September 09, 2024 12:00am May 26, 2025 9:49amStart: 35-05-5763Dihwxml Sulfate (Feosol) 325 mg (65 mg iron) tablet Active 325 MG PO .Every 3 Days September 09, 2024 12:00amStart: 72-62-2639tzos 1 tablet by mouth once dailySlow Fe (as elemental iron) 45 mg oral tablet, extended release 45 mg = 1 tab(s), Oral, Daily, # 30tab(s), Refills(s) 0, Pharmacy: [facility] [id number] Start Date: 07/20/18 Status: Orderedfluconazole 150 mg oral tablet (6 sources)Azole AntifungalStart: 01-11-2025 End: 98-99-1740Cwvvmzebvnr 150 mg tablet Discontinued 150 MG PO .every 3 days 3 0 January 11, 2025 9:58am May 26, 2025 9:49amStart: 11-11-2024 End: 23-36-0248nbgy 1 tablet by mouth once dailyFluconazole 150 mg tablet Discontinued 150 MG PO Daily 5 5 0 November 10, 2024 11:00pm January 11, 2025 9:59amfluocinonide 0.5 mg/ml topical solution (20 sources)CorticosteroidStart: 09-09-2024 End: 60-82-2299Ignxvsantzyz 0.05 % solution Discontinued TOPICAL September 09, 2024 12:00am October 19, 2024 5:11pmStart: 81-38-1790vqbclitjvibk (Lidex) 0.05 % external solution Indications: Other seborrheic dermatitis Apply to affe cted areas on the scalp, up to once a day when flared, 30 day supply 60 mL 11 04/20/2024 Activefluticasone propionate 0.05 mg/actuat metered dose nasal spray (8 sources)CorticosteroidStart: 08-04-2024 End: 81-63-5202Uxibzpqzpnk Propionate (Flonase Allergy Relief) 50 mcg/actuation spray,suspension Discontinued 1 SPRAY INTRANASAL Every 12 hours 16 1 August 04, 2024 12:00am October 19, 2024 5:11pmketoconazole 20 mg/ml medicated shampoo (3 sources)Azole AntifungalStart: 09-11-2023 End: 89-85-2548bkmnfkzcaghs (NIZOral) 2 % shampoo Indications: Other seborrheic dermatitis Lather on scalp 2-3 x weekly, leave on 5 min before rinsing 120 mL 09/11/2023 04/20/2024 Discontinued (Ineffective)labetalol hydrochloride 100 mg oral tablet (7 sources)beta-Adrenergic BlockerStart: 09-09-2024 End: 92-09-2681tygj 1 tablet by mouth twice dailyLabetalol 100 mg tablet Discontinued 100 MG PO Twice daily September 09, 2024 12:00am October 11:50am24 hr metoprolol succinate 25 mg extended release oral tablet (20 sources)beta-Adrenergic BlockerStart: 10-11-2024 End: 74-75-0271dhrb 1 tablet by mouth once daily in the morningMetoprolol Succinate 25 mg tablet extended release 24 hr Discontinued 25 MG PO Every morning October 19, 2024 12:00am January 07, 2025 10:23ammupirocin 0.02 mg/mg topical ointment (18 sources)RNA Synthetase Inhibitor AntibacterialStart: 09-09-2024 End: 95-08-7691Ldlfsjdck 2 % ointment Discontinued 1 APPLIC TOPICAL Twice daily 22 September 09, 2024 12:00am October 19, 2024 5:11pmStart: 05-09-2021 Mupirocin 2 % 1 application Externally Three times a day May, Not-Taking Start: 40-31-2713qhjjxdwrzvars 0.35 mg oral tablet (20 sources)Start: 09-09-2024 End: 86-88-3705xlmt 1 tablet by mouth once dailyNorethindrone (Contraceptive) (Incassia) 0.35 mg tablet Discontinued 0.35 MG PO Daily 84 3 2024 9:59am October 19, 2024 5:11pmtake 1 tablet by mouth every twenty-four hours Norlyda 0.35 MG 1 tablet Orally Once a day Activeomeprazole 20 mg delayed release oral capsule (20 sources)Proton Pump InhibitorStart: 01-01-2023 End: 94-11-0998jfry 1 capsule by mouth once dailyOmeprazole 20 mg capsule,delayed release(DR/EC) Discontinued 20 MG PO Daily 90 August 041:26am October 19, 2024 5:11pmOmeprazole 20 mg capsule,delayed release(DR/EC) (5 sources)Start: 08-04-2024 End: 60-57-6462Hmykfduvhj 20 mg capsule,delayed release(DR/EC) Discontinued MG PO August 04, 2024 12:00am August 04, 2024 11:26amphenazopyridine hydrochloride 100 mg oral tablet (3 sources)Start: 03-11-2025 End: 59-32-0319alvf 1 tablet by mouth three times daily as neededPhenazopyridine (Pyridium) 100 mg tablet Discontinued 100 MG PO Three times daily as needed for dysuria 9 March 10, 2025 11:00pm May 26, 2025 9:49amsulfamethoxazole 800 mg / trimethoprim 160 mg oral tablet (6 sources)Dihydrofolate Reductase Inhibitor Antibacterial, Sulfonamide AntimicrobialStart: 03-11-2025 End: 85-37-4023owpi 1 tablet by mouth twice dailySulfamethoxazole-Trimethoprim (Bactrim Ds) 800-160 mg tablet Discontinued 1 TAB PO Twice daily 20 0July 2024 12:50pm May 26, 2025 9:49am Problems Active Problems Problem ClassificationProblemDateDocumented DateEpisodic/ChronicAnxiety disorders (20 sources)Anxiety; Translations: [Anxiety disorder, unspecified]Chronic Contraceptive and procreative management (2 sources)Encounter for other general counseling and advice on contraception; Translations: [Other general counseling and advice on contraceptive management] 72-05-5760ZnmyxawfBgrrxzxqvx and other anemia (19 sources)Anemia; Translations: [Anemia, unspecified]Onset: 10-01-2024 Resolved: 753464-47-9138MrmjvrpqEvfrkvezlm and other anemia (4 sources)Anemia, unspecified; Translations: [Anemia, unspecified]09-09-2024 EpisodicDeficiency and other anemia (6 sources)Iron deficiency anemia; Translations: [Iron deficiency anemia, unspecified]15-27-2282XpktvfciUgrvxqkd mellitus without complication (13 sources)Hyperglycemia; Translations: [Hyperglycemia, unspecified]Episodic Esophageal disorders (20 sources)Gastroesophageal reflux disease; Translations: [Gastro-esophageal reflux disease without esophagitis]Onset: 04-03-2022 Resolved: 409436-36-4787FpcokqjLlcojbotz hypertension (9 sources)Hypertensive disorder; Translations: [Essential (primary) hypertension]Onset: 183772-45-6591OrgqhaoRdimdzvaxllgg symptoms and ill- defined conditions (1 source)Dysuria; Translations: [Dysuria]Onset: 41-11-2704ZxrgxiicOqvmxoty; including migraine (1 source)Migraine; Translations: [Migraine, unspecified, not intractable, without status migrainosus]Onset: 67-82-3326UyvhhaiNsnvlksjglkd complicating ; childbirth and the puerperium (2 sources)Unspecified maternal hypertension, complicating the puerperium; Translations: [Unspecified hypertension complicating , childbirth, or the puerperium, condition or complication]35-08-7668Qvfotzt Inflammation; infection of eye (except that caused by tuberculosis or sexually transmitteddisease) (3 sources)Unspecified conjunctivitis; Translations: [Acute conjunctivitis of left eye]Onset: 06-29-2021 Resolved: 54-89-1401YgxygdljYoqtrfk and fatigue (20 sources)Fatigue; Translations: [Other fatigue]EpisodicMiscellaneous mental health disorders (20 sources)Distorted body image; 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Nausea and vomiting (7 sources)Nausea and vomiting; Translations: [Nausea with vomiting, unspecified]Onset: 55-76-7890BtgygxsrEplcsfcytpw chest pain (7 sources)Chest pain; Translations: [Chest pain, unspecified]Episodic Osteoarthritis (20 sources)Arthritis; Translations: [Osteoarthritis]31-08-7830EvqmkfuWiagu connective tissue disease (2 sources)Pain in right arm; Translations: [Pain in right arm]02-07-2025 EpisodicOther gastrointestinal disorders (1 source)Diarrhea; Translations: [Diarrhea, unspecified]Onset: 10-05-2023 EpisodicOther hematologic conditions (6 sources)History of anemia; Translations: [Personal history of diseases of the blood and blood-forming organs and certain disorders involving the immune mechanism]EpisodicOther hematologic conditions (1 source)Personal history of diseases of the blood and blood-forming organs and certain disorders involving the immune mechanismEpisodicOther non-traumatic joint disorders (20 sources)Hip pain; Translations: [Pain in right hip]EpisodicOther non- traumatic joint disorders (3 sources)Pain in right wristOnset: 04-03-2022 Resolved: 80-95-4266EodkivmnIdmuv non-traumatic joint disorders (1 source)Pain in unspecified hipEpisodicOther nutritional; endocrine; and metabolic disorders (20 sources)Obesity; Translations: [Obesity, unspecified]ChronicOther nutritional; endocrine; and metabolic disorders (20 sources)Body mass index 40+ - severely obese; Translations: [Body mass index (BMI) 40.0-44.9, adult]62-02-6145ZoyltcxWuuxv nutritional; endocrine; and metabolic disorders (13 sources)Body mass index 30+ - obesity; Translations: [Obesity, unspecified] Onset: 10-01-2024 Resolved: 726486-47-0247GxusxgpPfefh conditions (1 source)Avrcj-gpi-lwttr at regardless of gestation period; Translations: [Other heavy for gestationalage ]Onset: 79-91-8196HcwubjsnUrrgt and delivery including normal (17 sources)Normal ; Translations: [Encounter for supervision of normal , unspecified, unspecified trimester]Onset: 23-02-1457SubwcicbCnjfw screening for suspected conditions (not mental disorders or infectious disease) (20 sources)Thyroid hormone tests abnormal; Translations: [Other specified abnormal findings of blood chemistry]Onset: 04-03-2022 Resolved: 28-19-6621CuboofqhZebui upper respiratory disease (20 sources)Seasonal allergic rhinitis; Translations: [Other seasonal allergic rhinitis]ChronicOther upper respiratory disease (4 sources)Congestion of nasal sinus; Translations: [Nasal congestion]05-26-2025 EpisodicOther upper respiratory infections (20 sources)Acute pharyngitis, unspecified; Translations: [Acute upper respiratory infection, unspecified]Onset: 06-29-2021 Resolved: 51-43-5882DvrrobqnJbftaf media and related conditions (5 sources)Otitis media, unspecified, left ear; Translations: [Unspecified otitis media]45-79-3008MkprstvrPpruxjbr codes; unclassified (1 source)General finding of observation of patient; Translations: [Other general symptoms and signs]Onset: 93-77-9792GfghmsylCpcsewdt codes; unclassified (2 sources)History of uterine scar from previous surgery; Translations: [History of uterine scar from previoussurgery]Onset: 13-83-0134YiczmasdJztdsgqlees; intervertebral disc disorders; other back problems (20 sources)Arthropathy of lumbar facet joint; 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, lumbar region]ChronicSpontaneous (6 sources)Miscarriage; Translations: [Complete or unspecified spontaneous without complication]56-99-4485BvgtdhhsObmlcfvmmsic (3 sources)CONTACT W/AND (SUSP) EXPOS COVID-19; Translations: [CONTACT W/AND (SUSP) EXPOS COVID-19]Onset: 47-99-6828Sspgqrganqmu (7 sources)Age mother conceived under 17( Confirmed )41-17-5770Frkvvzrlnsnj (20 sources)Age mother conceived under 0160-89-5239Hxdtwiuggdkl (3 sources)Previous uterine maaanawj93-09-3834 Past or Other Problems Problem ClassificationProblemDateDocumented DateEpisodic/ChronicImmunizations and screening for infectious disease (1 source)Contact with and (suspected) exposure to other viral communicable diseases; Translations: [Contact with and (suspected) exposure to other viral communicable diseases Z20.828]Onset: 06-28-2021 Resolved: 48-00-7754EorlghfwPgkbxfpvzjhnz (20 sources)Lymphadenopathy of head AND/OR neck; Translations: [Localized enlarged lymph nodes]Onset: 08-04-2024 Resolved: 958487-83-4614GikwtpalAruuc and unspecified benign neoplasm (2 sources)Melanocytic nevus of scalp; Translations: [Melanocytic nevi of scalp and neck]53-66-3157SgwxvgndIvise inflammatory condition of skin (2 sources)Seborrheic dermatitis; Translations: [Other seborrheic dermatitis] 33-71-3769LqpqjgxvCddqh skin disorders (2 sources)Acne vulgaris; Translations: [Acne vulgaris]31-97-5546LvzgjlrhRdzbz skin disorders (2 sources)Keratosis pilaris; Translations: [Other specified epidermal thickening]55-38-9192UxwqsiwtJnlin upper respiratory disease (1 source)Nasal congestionOnset: 09-11-2021 Resolved: 95-33-6361AfbovwlyWssdrbpm (4 sources)Maternal care for low transverse scar from previous delivery; Translations: [Maternal carefor unspecified type scar from previous delivery]Onset: 96-02-2855EhfzdkzlKanshrca codes; unclassified (1 source)Personal history of other complications of , childbirth and the puerperiumOnset: 04-03-2022 Resolved: 07-38-3424JhoigqldOthbnatc codes; unclassified (11 sources)History of past delivery; Translations: [History of uterine scar from previous surgery]Onset: 10-01-2024 Resolved: 894781-13-0850RfaryjwcLnmk and subcutaneous tissue infections (20 sources)Abscess; Translations: [Cutaneous abscess, unspecified]Onset: 09-09-2024 Resolved: 14-39-8944QthfntyhZnosaqfccgs; intervertebral disc disorders; other back problems (20 sources)Low back pain; Translations: [Low back pain]Onset: 09-06-2024 Resolved: 966769-29-9147RsnlywlhTbgawygtimej (1 source)CONTACT W/AND (SUSP) EXPOS COVID-19; Translations: [CONTACT W/AND (SUSP) EXPOS COVID-19]Onset: 36-48-3948Gnkszsqcdhkl (20 sources)PregnancyOnset: 01-31-2016 Resolved: 339650-40-5221Posnidyrxjza (20 sources)Yeast (organism)40-85-7867Xckagxphbavo (20 sources)Unclassified (1 source)Cough R05.9Onset: 09-11-2021 Resolved: 88-53-6016Whxqa infection (1 source)Disease caused by 2019-nCoV; Translations: [COVID-19]Onset: 02-05-2022 Results Test NameValueInterpretationReference CgynaDigwvvasT6D with Estimated Average Gluon 47-31-5218Nylmflr [Mass/Vol]117 mg/dLNormPalmetto General Hospital [facility] Comment on above:Result Comment: PERFORMED BY: [place] [address] PATHOLOGIST AIX ARCHITECT BRITTA HARDING M.D.Performed By: #### CBC, CMP, MONOTEST #### [place] [address] ZJQOqD7o (Bld) [Mass fraction]5.7 %High4.3-5.6The [facility] Physician GroupComment on above:Result Comment: Increased risk for diabetes: 5.7 - 6.4 diabetes: >6.4 glycemic control for adults with diabetes: <7.0Performed By: #### CBC, CMP, MONOTEST #### [place] [address] USAAlanine aminotransferase [Enzymatic activity/volume] in Serum or PlasmaOrdered By: Richie Luevano on 59-83-7654BTK [Catalytic activity/Vol]19 U/LNormal7-52Bet[facility] North HospitalComment on above: Performed By: #### CBC, CMP, MONOTEST #### [place] [address] USAAlbumin [Mass/volume] in Serum or Plasma by Bromocresol green (BCG) dye binding methoOrdered By: Richie Luevano on 27-52-6166Tgjqzbo BCG dye [Mass/Vol]4.6 g/dL3.5-5.7FOhio State Harding HospitalAlkaline phosphatase [Enzymatic activity/volume] in Serum or PlasmaOrdered By: Richie Luevano on 41-40-8282HFS [Catalytic activity/Vol]82 U/JLdxhci09-681WicxnjqnrBethesda North HospitalComment on above:Performed By: #### CBC, CMP, MONOTEST #### [place] [address] USAAspartate aminotransferase [Enzymatic activity/volume] in Serum or PlasmaOrdered By: Richie Luevano on 70-04-1673KIV [Catalytic activity/Vol]14 U/HKpiapx25-34SsuzvmazjBethesda North HospitalComment on above: Performed By: #### CBC, CMP, MONOTEST #### [facility] [address] [place] [address] USABasophils [#/volume] in Blood by Automated countOrdered By: Richie Luevano on 85-94-1493Wfyumcwul (Bld) [#/Vol]0.0 10*3/uLNormal0.0-0.2 [facility] HospitalComment on above:Result Comment: PERFORMED BY: [place] [address] PATHOLOGIST AIX ARCHITECT BRITTA HARDING M.D.Performed By: #### CBC, CMP, MONOTEST #### [place] [address] USABasophils/100 leukocytes in Blood by Automated count Ordered By: Richie Luevano on 16-05-9088Atatuulot/100 WBC (Bld)1.1 %Normal. [facility] North HospitalComment on above:Performed By: #### CBC, CMP, MONOTEST #### [place] [address] USABilirubin.total [Mass/volume] in Serum or PlasmaOrdered By: Richie Luevano on 60-05-6943Jnsiopysi [Mass/Vol]0.4 mg/dLNormal0.3-1.0 [facility] HospitalComment on above:Performed By: #### CBC, CMP, MONOTEST #### [place] [address] USACalcium [Mass/volume] in Serum or PlasmaOrdered By: Richie Luevano on 20-18-5658Vzlrccr [Mass/Vol]9.8 mg/dLNormal8.6-10.3FOhio State Harding HospitalComment on above:Performed By: #### CBC, CMP, MONOTEST #### [place] [address] USACarbon dioxide, total [Moles/volume] in Serum or Plasma Ordered By: Richie Luevano on 14-15-9194FE3 [Moles/Vol]28.0 mmol/HEunhbb83.0-31.0 [facility] HospitalComment on above:Performed By: #### CBC, CMP, MONOTEST #### [facility] [address] [place] [address] USAChloride [Moles/volume] in Serum or PlasmaOrdered By: Richie Luevano on 21-70-7257Oiohpabv [Moles/Vol]106 mmol/SZumblu32-632LvmuykmnkBethesda North HospitalComment on above:Performed By: #### CBC, CMP, MONOTEST #### [facility] [address] [place] [id number] USACholesterol [Mass/volume] in Serum or PlasmaOrdered By: Richie Luevano on 40-36-8645Ccsyndpidux [Mass/Vol]160 mg/cNWhrbnq685-970CogrsubrmBethesda North HospitalComment on above:Chol less than 200 mg/dl low riskChol 201-239 mg/dl borderline riskChol 240 mg/dl and greater high riskResult Comment: Chol less than 200 mg/dl low risk Chol 201-239 mg/dl borderline risk Chol 240 mg/dl and greater high riskPerformed By: #### CBC, CMP, MONOTEST #### [facility] [address] [place] [id number] USACholesterol in HDL [Mass/volume] in Serum or PlasmaOrdered By: Richie Luevano on 37-78-9575Ceziejdrtzd in HDL [Mass/Vol]37 mg/cCNtbwix62-61 [facility] HospitalComment on above:HDL CHOL ATP-III CLASSIFICATION Cardiovascular RiskHDL > or equal to 60 mg/dL LOWHDL < 40 mg/dL HIGHResult Comment: HDL CHOL ATP-III CLASSIFICATION Cardiovascular Risk HDL > or equal to 60 mg/dL LOW HDL < 40 mg/dL HIGHPerformed By: #### CBC, CMP, MONOTEST #### [facility] [address] [place] [address] USACholesterol in LDL Calc [Mass/Vol]Ordered By: Richie Luevano on 82-41-5869Iwlvrdwswgo in LDL [Mass/Vol]94 mg/dL0-100[facility] HospitalComment on above:LDL ATP III CLASSIFICATIONLDL less than 100 mg/dL OptimalLDL 100-129 mg/dL Near or above phuywwxBUF613-093 mg/dL Borderline highLDL 160-189 mg/dL HighLDL greater than 189 mg/dL Very highCholesterol in VLDL Calc [Mass/Vol]Ordered By: Richie Luevano on 52-93-8007Vwnqoghzxgg in VLDL [Mass/Vol]29 mg/dLBethesda North HospitalComplete Blood Count Auto Diffon 42-74-0367Pear Corpuscular HGB Conc32.9 g/tMTyzlhb00.0-35.0The [facility] Physician [facility] Care SystemComment on above:Performed By: #### CBC, CMP, MONOTEST #### [facility] [address] [place] [address] USANRBC%0.0 /100{WBC}Normal0-0.5The [facility] Physician [facility] Comment on above:Performed By: #### CBC, CMP, MONOTEST #### [facility] [address] [place] [address] USAWhite Blood Count4.3 [CFU]/mLNormal3.8-11.6The [facility] Physician [facility] Care SystemComment on above:Performed By: #### CBC, CMP, MONOTEST #### [facility] [address] [place] [address] USAComprehensive Metabolic Panelon 41-92-7041Fseiouy [Mass/Vol]4.6 g/dLNormal3.5-5.7The [facility] Physician [facility] Care SystemComment on above: Performed By: #### CBC, CMP, MONOTEST #### [place] [address] USAGFR/1.73 sq M.predicted MDRD (S/P/Bld) [Vol rate/Area] mL/min/{1.73_m2}NormalThe Phoenixville HospitalComment on above:Performed By: #### CBC, CMP, MONOTEST #### [place] [address] USACreatinine [Mass/volume] in Serum or PlasmaOrdered By: Richie Luevano on 63-58-2485Puqohzyozt [Mass/Vol]0.74 mg/dLNormal0.60-1.20 [facility] HospitalComment on above:Performed By: #### CBC, CMP, MONOTEST #### [place] [address] USAEosinophils [#/volume] in Blood by Automated countOrdered By: Richie Luevano on 23-79-4350Scfqpdxruva (Bld) [#/Vol]0.1 10*3/uLNormal0.0-0.45 [facility] HospitalComment on above:Performed By: #### CBC, CMP, MONOTEST #### [place] [address] USAEosinophils/100 leukocytes in Blood by Automated count Ordered By: Richie Luevano on 55-20-8136Xxuxaihvxeg/100 WBC (Bld)1.6 %Normal. [facility] HospitalComment on above:Performed By: #### CBC, CMP, MONOTEST #### [place] [address] USAErythrocyte distribution width [Ratio] by Automated count Ordered By: Richie Luevano on 49-40-5065Zrkdzwlcwif distribution width (RBC) [Ratio]15.4 %High11.9-15.3FOhio State Harding HospitalComment on above: Performed By: #### CBC, CMP, MONOTEST #### [place] [address] USAErythrocytes [#/volume] in Blood by Automated countOrdered By: Richie Luevano on 27-52-0107KGI (Bld) [#/Vol]4.60 10*6/uLNormal3.60-5.00 [facility] HospitalComment on above:Performed By: #### CBC, CMP, MONOTEST #### [facility] [address] [place] [address] USAFerritin [Mass/volume] in Serum or PlasmaOrdered By: Richie Luevano on 54-43-6717Owgropbl [Mass/Vol]7.5 ng/mLLow11.0-306.8[facility] HospitalComment on above:Performed By: #### CBC, CMP, MONOTEST #### [place] [address] USAGlomerular filtration rate [Volume Rate/Area] in Serum, Plasma or Blood by CreatinineOrdered By: Richie Luevano on 66-41-0465Xfxzcuqorj filtration rate [Volume Rate/Area] in Serum, Plasma or Blood by Creatinine> 60.0 mL/MinBethesda North HospitalGlucose [Mass/volume] in Serum or Plasma Ordered By: Richie Luevano on 17-70-8675Atapnhs [Mass/Vol]81 mg/hRSckawf63-524 [facility] HospitalComment on above:ADA recommended reference rangeRandom Glucose Reference Range is dependent on time and content of last meal. Glucose of more than 200 mg/dL in a nonstressed, ambulatory subject supports the diagnosisof Diabetes Mellitus.Result Comment: Random Glucose Reference Range is dependent on time and content of last meal. Glucose of more than 200 mg/dL in a nonstressed, ambulatory subject supports the diagnosis of Diabetes Mellitus. ADA recommended reference rangePerformed By: #### CBC, CMP, MONOTEST #### [facility] [address] [place] [id number] USAHematocrit [Volume Fraction] of Blood by Automated count Ordered By: Richie Luevano on 33-00-2130Ngyzmuhwxs (Bld) [Volume fraction]35.0 % Xfgwjs45.0-46.4FOhio State Harding HospitalComment on above:Performed By: #### CBC, CMP, MONOTEST #### [facility] [address] [place] [id number] USAHemoglobin [Mass/volume] in BloodOrdered By: Richie Luevano on 46-68-1215Gxziasqkmg (Bld) [Mass/Vol]11.5 g/dLLow11.8-15.4FOhio State Harding HospitalComment on above:Performed By: #### CBC, CMP, MONOTEST #### [facility] [address] [place] [id number] USAIron [Mass/volume] in Serum or PlasmaOrdered By: Richie Luevano on 32-13-5174Gtxx [Mass/Vol]36 ug/zDRta70-824RfcaguobuBethesda North HospitalComment on above:Performed By: #### CBC, CMP, MONOTEST #### [facility] [address] [place] [address] USAIron and TIBC Profileon 07-06-2025% Iron Saturation7.3 % Akk39-03Qhj [facility] Physician GroupComment on above:Performed By: #### CBC, CMP, MONOTEST #### [facility] [address] [place] [id number] USATotal Iron Binding Lsrzycsz988 ug/zONukr550-778Ins [facility] Physician GroupComment on above:Performed By: #### CBC, CMP, MONOTEST #### [facility] [address] [place] [id number] USALeukocytes [#/volume] corrected for nucleated erythrocytes in Blood by Automated counOrdered By: Richie Luevano on 26-21-8153UPQ corrected for nucl RBC Auto (Bld) [#/Vol]4.3 10*3/uL3.8-11.6FOhio State Harding HospitalLeukocytes [#/volume] in Blood by Automated countOrdered By: Richie Luevano on 49-08-8282WOQ (Bld) [#/Vol]4.3 10*3/uLNormal3.8-11.6FOhio State Harding HospitalComment on above:Performed By: #### CBC, CMP, MONOTEST #### [facility] [address] [place] [id number] USALipid Panelon 53-73-5533YEG Cholesterol,Ruskgqghoh56 mg/dL Normal0-100The [facility] Physician GroupComment on above:Result Comment: LDL ATP III CLASSIFICATION LDL less than 100 mg/dL Optimal LDL 100-129 mg/dL Near or above optimal LDL 130-159 mg/dL Borderline high LDL 160-189 mg/dL High LDL greater than 189 mg/dL Very highPerformed By: #### CBC, CMP, MONOTEST #### [facility] [address] [place] [id number] USATriglyceride w/Jfmtpk139 mg/dLNormal0-149The [facility] Physician GroupComment on above:Result Comment: TRIG ATP III CLASSIFICATION TRIG less than 150 mg/dL Normal TRIG 150-199 mg/dL Borderline high TRIG 200-500 mg/dL High TRIG greater than 500 mg/dL Very high Standard traceable to the Center for Disease Conrtrol and Prevention (CDC) test method.Performed By: #### CBC, CMP, MONOTEST #### [facility] [address] [place] [address] USALDL LCRLQVJRNDY11 mg/dLNoAffinity Health Partners Physician GroupComment on above:Performed By: #### CBC, CMP, MONOTEST #### [facility] [address] [place] [address] USALymphocytes [#/volume] in Blood by Automated countOrdered By: Richie Luevano on 21-92-1732Awmihwdkcno (Bld) [#/Vol]1.5 10*3/uLNormal1.00-4.8 [facility] HospitalComment on above:Performed By: #### CBC, CMP, MONOTEST #### [place] [address] USALymphocytes/100 leukocytes in Blood by Automated count Ordered By: Richie Luevano on 53-62-3884Orcclkqhdtp/100 WBC (Bld)34.1 %Normal. [facility] HospitalComment on above:Performed By: #### CBC, CMP, MONOTEST #### [address] [Entitic mass] by Automated countOrdered By: Richie Luevano on 15-68-8651BVD (RBC) [Entitic mass]25.0 cbVxfmtx73.7-34.3FOhio State Harding HospitalComment on above:Performed By: #### CBC, CMP, MONOTEST #### [address] Auto (RBC) [Mass/Vol]Ordered By: Richie Luevano on 78-08-2320ZZEL (RBC) [Mass/Vol]32.9 g/dL32.0-35.0Bet[facility] North HospitalMCV [Entitic volume] by Automated countOrdered By: Richie Luevano on 84-04-3423YPA (RBC) [Entitic vol]76.1 bYBpp21-997QplvjdxidBethesda North HospitalComment on above:Performed By: #### CBC, CMP, MONOTEST #### [facility] [address] [place] [address] USAMonocytes [#/volume] in Blood by Automated countOrdered By: Richie Luevano on 97-10-8031Zpydjaoii (Bld) [#/Vol]0.5 10*3/uLNormal0.0-0.8 [facility] HospitalComment on above:Performed By: #### CBC, CMP, MONOTEST #### [facility] [address] [place] [id number] USAMonocytes/100 leukocytes in Blood by Automated count Ordered By: Richie Luevano on 32-28-1494Bbfjiwyui/100 WBC (Bld)12.0 %Normal. [facility] HospitalComment on above:Performed By: #### CBC, CMP, MONOTEST #### [facility] [address] [place] [address] USANeutrophils [#/volume] in Blood by Automated countOrdered By: Richie Luevano on 35-13-7870Vxndhwhowbh (Bld) [#/Vol]2.2 10*3/uLNormal1.8-7.7 [facility] HospitalComment on above:Performed By: #### CBC, CMP, MONOTEST #### [facility] [address] [place] [address] USANeutrophils/100 leukocytes in Blood by Automated count Ordered By: Richie Luevano on 33-78-9529Tgvkxugdqid/100 WBC (Bld)51.2 %Normal. [facility] HospitalComment on above:Performed By: #### CBC, CMP, MONOTEST #### [facility] [address] [place] [id number] USANo Panel InformationOrdered By: Richie Luevano on 07-06-2025 Pharmacy Creatinine Clearance ([facility] HospitalNucleated erythrocytes [Presence] in Blood by Automated countOrdered By: Richie Luevano on 76-56-2812Xuzyxdccq RBC Auto Ql (Bld)0.0 /100{WBC}0-0.5[facility] Regional Medical CenterPlatelet mean volume [Entitic volume] in Blood by Automated count Ordered By: Richie Luevano on 61-04-5445Iyjsqxkr mean volume (Bld) [Entitic vol] 8.3 fLNormal6.3-10.7FOhio State Harding HospitalComment on above:Performed By: #### CBC, CMP, MONOTEST #### [facility] [address] [place] [address] USAPlatelets [#/volume] in Blood by Automated countOrdered By: Richie Luevano on 49-00-2531Idbeswctc (Bld) [#/Vol]284 10*3/pKYicqve020-722 [facility] HospitalComment on above:Performed By: #### CBC, CMP, MONOTEST #### [place] [address] USAPotassium [Moles/volume] in Serum or PlasmaOrdered By: Richie Luevano on 25-15-1536Rpcuisgdy [Moles/Vol]4.5 mmol/LNormal3.5-5.1FOhio State Harding HospitalComment on above:Performed By: #### CBC, CMP, MONOTEST #### [facility] [address] [place] [address] USAProtein [Mass/volume] in Serum or PlasmaOrdered By: Richie Luevano on 33-27-8606Umizizx [Mass/Vol]7.5 g/dLNormal6.4-8.9[facility] HospitalComment on above:Performed By: #### CBC, CMP, MONOTEST #### [facility] [address] [place] [address] USASerum globulin measurement by calculation (mass/volume) Ordered By: Richie Luevano on 39-16-5458Msydruza (S) [Mass/Vol]2.9 g/dLNormal [facility] HospitalComment on above:Performed By: #### CBC, CMP, MONOTEST #### [place] [address] USASerum or plasma albumin/globulin mass ratioOrdered By: Richie Luevano on 62-59-7170Phqimgo/Globulin [Mass ratio]1.6 {ratio}Normal [facility] HospitalComment on above:Performed By: #### CBC, CMP, MONOTEST #### [facility] [address] [place] [address] USASerum or plasma anion gap determinationOrdered By: Richie Luevano on 35-36-6302Ddrpz gap [Moles/Vol]8.5 mmol/LNormal6.0-15.0[facility] HospitalComment on above:Performed By: #### CBC, CMP, MONOTEST #### [facility] [address] [place] [address] USASerum or plasma iron binding capacity measurement (mass/volume)Ordered By: Richie Luevano on 18-34-0858Atad binding capacity [Mass/Vol]496 ug/lWXgxy628-455EjlojivqdMercy Health St. Elizabeth Youngstown Hospitalerum or plasma iron saturation measurement (mass fraction)Ordered By: Richie Luevano on 32-68-0906Dcxv saturation [Mass fraction]7.3 %Sdw19-21CadumvklgMercy Health St. Elizabeth Youngstown Hospitalerum or plasma total cholesterol/high density lipoprotein (HDL) cholesterol mass ratOrdered By: Richie Luevano on 07-06-2025 Cholesterol.total/Cholesterol in HDL [Mass ratio]4.3 {ratio}Normal<5.0[facility] HospitalComment on above:Performed By: #### CBC, CMP, MONOTEST #### [facility] [address] [place] [address] USASodium [Moles/volume] in Serum or PlasmaOrdered By: Richie Luevano on 36-16-9171Xjhpnz [Moles/Vol]138 mmol/VWwsksb575-141XobttcfnjBethesda North HospitalComment on above:Performed By: #### CBC, CMP, MONOTEST #### [facility] [address] [place] [id number] USAThyroid Stim Hormone w/Rflxon 09-28-7131Xdbwytr Stim Hormone w/Rflx0.69 u[iU]/mLNormal0.45-5.33The [facility] Physician GroupComment on above:Result Comment: PERFORMED BY: [place] [id number] PATHOLOGIST AIX ARCHITECT BRITTA HARDING M.D.Performed By: #### CBC, CMP, MONOTEST #### [place] [address] USAThyrotropin [Units/volume] in Serum or PlasmaOrdered By: Richie Luevano on 11-71-2508QEK Qn0.69 m[IU]/L0.45-5.33[facility] HospitalTransferrin [Mass/volume] in Serum or PlasmaOrdered By: Richie Luevano on 58-36-0682Pgzdkblztjw [Mass/Vol]354 mg/aGTxwiot315-604HuhccmfveBethesda North HospitalComment on above:Performed By: #### CBC, CMP, MONOTEST #### [place] [id number] USATriglyceride [Mass/volume] in Serum or PlasmaOrdered By: Richie Luevano on 28-77-6773Ygczzlgciyef [Mass/Vol]147 mg/dL0-149[facility] HospitalComment on above:TRIG ATP III CLASSIFICATIONTRIG less than 150 mg/dL NormalTRIG 150-199 mg/dL Borderline highTRIG 200-500 mg/dL High TRIG greater than 500 mg/dL Very highStandard traceable to the Center for Disease Conrtrol and Prevention (CDC) test method.Urea nitrogen [Mass/volume] in Serum or PlasmaOrdered By: Richie Luevano on 11-07-2009Jmmd nitrogen [Mass/Vol]11 mg/dLNormal7-25[facility] HospitalComment on above:Performed By: #### CBC, CMP, MONOTEST #### [facility] [address] [place], [place] [address] USAInfluenza virus B Ag [Presence] in Upper respiratory specimen by Rapid immunoassayOrdered By: Richie Luevano on 61-20-1011MIZRY Ag IA.rapid Ql (Nph)NegativeBethesda North HospitalNo Panel Information Ordered By: Richie Luevano on 96-70-6023Gocrqcger Type A (Rapid)NegativeBethesda North HospitalPOC SARS CoV-2 AntigenNegativeBethesda North HospitalNo Panel InformationOrdered By: Kristie Marker on 72-95-8850Urmay Chorionic Gonadotropin, Quant14 mIU/mLBethesda North HospitalComment on above:5-50 0.2-1 MEKW46-969 1-2 DLHJE199-0,000 2-3 MALRL219-99,000 3-4 WEEKS1,000-50,000 4-5 WEEKS10,000-100,000 5-6 WEEKS15,000-200,000 6-8 WEEKS10,000-100,000 2-3 MONTHSBhCG Quanton 79-82-3891Rqji hCG Qnt75 mIU/mLHigh 1-3Fisher [facility] HospitalComment on above:Result Comment: 'F NON < 1 - 3' ' 0.2 - 1 WEEK = 5 TO 50' ' 1 - 2 WEEKS = 50 - 500' ' 2 - 3 WEEKS = 100 - 5000' ' 3 - 4 WEEKS = 500 - 40308' ' 4 - 5 WEEKS = 1000 - 54055' ' 5 - 6 WEEKS = 53424 - 457396' ' 6 - 8 WEEKS = 23701 - 866978' ' 8 - 12 WEEKS = 40880 - 112980'Performed By: #### [id number] #### [facility] [address] [place], [place] [address]Xdlfitzkljvdfi 14-58-7098Jtuvnzohkrmc Lvl0.33 ng/mLInvalid Interpretation [facility] HospitalComment on above:Result Comment: 'F NON FOLLICULAR = 0.10 - 0.60' 'LUTEAL = 3.00 - 17.5' 'MIDLUTEAL = 3.30 - 18.6' 'POST-MENOPAUSE = 0.10 - 0.40' '-FIRST TRIMESTER = 8.30 - 66.5' 'SECOND TRIMESTER = 18.9 - 66.1' 'THIRD TRIMESTER = 35.8 - 312.4' 'MALES = 0.14 - 2.06'Performed By: #### [id number] #### [facility] [address] [place], [place] [address]IRR [id number] 96-62-1974SVA 649945JayyMnoclyj Interpretation [facility] HospitalComment on above:Result Comment: TESTS RESULT FLAG UNITS REF RANGE LAB Clinician Provided Cytology Information Source.............Endoc[employer]ix No. of containers..01 ThinPrep Vial DIAGNOSIS: 01 NEGATIVE FOR INTRAEPITHELIAL LESION OR MALIGNANCY. Specimen adequacy: 01 Satisfactory for evaluation. No endocervical component is identified. Performed by: 01 Kimberly Retana Director Sports ([facility]) . 01 Note: Note 01 The Pap [...] High <-Panic Low,>-Panic High,A-Abnormal,AA-Critical Abnormal Performed at: [facility] [place] [address] Mayelin Zapien MD, Performed at: [facility] [id number] MD Rupali CottonaliPerformed By: #### [id number] #### [facility] [address] [place], [place] [address]OQD [id number] 66-63-7803Hoonmroqwc TechniqueBRUSH-SPATULANormal [facility]S HospitalComment on above:Performed By: #### [id number] #### [facility] [address] [place], [place] [address]Zrwwssqaxtlci Body SiteENDOCERVIXNormalDayton Children'S HospitalComment on above:Performed By: #### [id number] #### [facility] [address] [place], [place] [address]GXE,Urineon 88-30-6270Lsup HCG ( test) Ql (U)Negative NormalThe [facility] Physician GroupComment on above:Result Comment: PERFORMED BY: [facility] [address] [place] [id number] PATHOLOGIST AIX ARCHITECT CANDACE STANTON M.D.Performed By: #### UHCG #### [facility] [address] [place] [id number] USALon 10-26-2024L Specimen: [id number] Received: 10/26/24 Status: SHEELA Golden Num: [id number] Spec Type: Surgical Subm Dr: Herman Thomas DO Tissues: A Lymph Node - Regional Resection (RT POSTERIOR CERVICAL LYMPH ) Procedures: HE/6, Gross/Micro L5, BCL-2, CD10, CD20, CD3 Age/ Patient Sex Location Account Attending Physician YvetteKassie M [place] [id number] Herman Thomas DO SPEC NUM: [id number] RECD: 10/26/24 STATUS: SOUTres REQ NUM: [id number] BREANNE: 10/26/24-0 [facility] DR: Herman Thomas DO ENTERED: 10/26/[address]: MAE TYPE: Surgical DEPT: S ORDERED: HE/6, Gross/Micro L5, BCL-2, CD10, CD20, CD3 ORDERED: HE/6, Gross/Micro L5, BCL-2, CD10, CD20, CD3 Supplemental Report Addendum 1 Entered: 11/01/24 Supplemental for findings of Flow Cytometry assessment from [facility] -No significant lymphoid immunophenotypic abnormalities Addendum Signed (signature on file) Reece-Rashawn Peterson MD 11/01/24 7651 Pathological Diagnosis Right posterior cervical lymph nodes, excision: 9 lymph nodes, with reactive follicular lymphoid hyperplasia. No features of lymphoma or metastatic malignancy are identified. No granulomas are present. Comment: No specific etiology for this lymphadenopathy is identified, histologically. Correlation with the pending flow cytometry study is recommended. Specimen: [id number] Received: 10/26/24 Status: SHEELA Backkiera Num: [id number] Spec Type: Surgical Subm Dr: Herman Thomas DO Tissues: A Lymph Node - Regional Resection (RT POSTERIOR CERVICAL LYMPH ) Procedures: HE/6, Gross/Micro L5, BCL-2, CD10, CD20, CD3 Patient: Kassie Crawford [id number] (Continued) Specimen: [id number] Received: 10/26/24 (Continued) Signed (signature on file) Tesha Shipley MD 10/29/24 1426 Specimen: [id number] Received: 10/26/24 Status: SHEELA Golden Num: [id number] Spec Type: Surgical Subm Dr: Herman Thomas DO Tissues: A Lymph Node - Regional Resection (RT POSTERIOR CERVICAL LYMPH ) Procedures: HE/6, Gross/Micro L5, BCL-2, CD10, CD20, CD3 Patient: Kassie Crawford [id number] (Continued) Specimen: [id number] Received: 10/26/24 (Continued) Clinical Information None provided Gross Description Part A is received fresh labeled with the patients name, date of , and R posterior cervical lymph nodes is an ovoid sheet of fibrofatty tissue, 3 x 2 x 1 cm. Within the fibrofatty tissue are 9 lymph node candidates ranging from 0.3 to 1.5 cm in greatest dimension. Senior Portfolio Analyst sections from the 3 largest lymph node candidates are submitted in RPMI media and sent to [facility] for flow cytometry studies. The remainder of [...] dimension intact lymph node candidates (6, ss, [id number] A)JG Microscopic Description Sections of the lymph node [...] seen. Plasma cells are not increased. No Ajvx-Kvxqzsctc-zymu cells are identified. No granulomas are seen. No neutrophilic infi (more content not included)...NormalThe Phoenixville HospitalBasic Metabolic Panelon 57-93-9494Cxsnv gap [Moles/Vol]10.6 mmol/LNormal 6.0-15.0The Phoenixville HospitalComment on above:Performed By: #### CBC, CMP, MONOTEST #### [place] [address] USACalcium [Mass/Vol]9.6 mg/dLNormal8.6-10.3The Phoenixville HospitalComment on above:Result Comment: PERFORMED BY: [place] [address] PATHOLOGIST AIX ARCHITECT CANDACE STANTON M.D.Performed By: #### CBC, CMP, MONOTEST #### [place] [address] USAChloride [Moles/Vol]106 mmol/MQgjuoe06-569Ltu Phoenixville HospitalComment on above:Performed By: #### CBC, CMP, MONOTEST #### [facility] [address] [place] [id number] USACO2 [Moles/Vol]25.7 mmol/FVvyund96.0-31.0The [facility] Physician GroupComment on above:Performed By: #### CBC, CMP, MONOTEST #### [facility] [address] [place] [address] USACreatinine [Mass/Vol]0.72 mg/dLNormal0.60-1.20The [facility] Physician GroupComment on above:Performed By: #### CBC, CMP, MONOTEST #### [facility] [address] [place] [address] USAGFR/1.73 sq M.predicted MDRD (S/P/Bld) [Vol rate/Area] mL/min/{1.73_m2}NormalThe [facility] Physician GroupComment on above:Performed By: #### CBC, CMP, MONOTEST #### [facility] [address] [place] [address] USAGlucose [Mass/Vol]90 mg/xEZqwrng09-310Fhe [facility] Physician GroupComment on above:Result Comment: Random Glucose Reference Range is dependent on time and content of last meal. Glucose of more than 200 mg/dL in a nonstressed, ambulatory subject supports the diagnosis of Diabetes Mellitus. ADA recommended reference rangePerformed By: #### CBC, CMP, MONOTEST #### [facility] [address] [place] [address] USAPotassium [Moles/Vol]4.3 mmol/LNormal3.5-5.1The [facility] Physician GroupComment on above:Performed By: #### CBC, CMP, MONOTEST #### [facility] [address] [place] [id number] USASodium [Moles/Vol]138 mmol/XCmdnpl090-473Bvs [facility] Physician GroupComment on above:Performed By: #### CBC, CMP, MONOTEST #### [facility] [address] [place] [address] USAUrea nitrogen [Mass/Vol]19 mg/dLNormal7-25The [facility] Physician GroupComment on above:Performed By: #### CBC, CMP, MONOTEST #### [facility] [address] [place] [address] [facility] PHYSICI[facility] MEDICAL CENTERBasi metabolic 1998 panelon 23-59-0938Qlexf gap [Moles/Vol]10.6 mmol/L6.0 - 15.0 meq/LNOMS HealthcareCalcium [Mass/Vol]9.6 mg/dL 8.6 - 10.3 mg/dLNOMS HealthcareChloride [Moles/Vol]106 mmol/L98 - 107 mmol/LNOMS HealthcareCO2 [Moles/Vol]25.7 mmol/L21.0 - 31.0 mmol/LNOMS HealthcareCreatinine (U) [Mass/Vol]0.72 mg/dL0.60 - 1.20 mg/dLNOCO HealthcareESTIMATED GFRmL/MinNOMS HealthcareGlucose [Mass/Vol]90 mg/dL70 - 100 mg/dLNOMS HealthcareComment on above:Random Glucose Reference Range is dependent on time and content of last meal. Glucose of more than 200 mg/dL in a nonstressed, ambulatory subject supports the diagnosis of Diabetes Mellitus. ADA recommended reference range Potassium [Moles/Vol]4.3 mmol/L3.5 - 5.1 mmol/LNOMS HealthcareSodium [Moles/Vol] 138 mmol/L136 - 145 mmol/LNOMS HealthcareUrea nitrogen [Mass/Vol]19 mg/dL7 - 25 mg/dLNOCO HealthcareNOMS HealthcareBasophils Auto (Bld) [#/Vol]Ordered By: Herman Thomas on 53-57-6932Lgvkntgwj (Bld) [#/Vol]Automated basophil count 0.0-0.2FOhio State Harding HospitalBasophils/100 WBC Auto (Bld)Ordered By: Herman Thomas on 33-16-3164Mprlntygk/100 WBC (Bld)Automated basophil %. [facility] HospitalCBC W Auto Differential panel (Bld)on 14-25-5568Cawizrbqp (Bld) [#/Vol]0.1 10*3/uL0.0 - 0.2 10*3/uLNOMS Healthcare Basophils/100 WBC Manual cnt (Syn fld)1.1 %.NOMS HealthcareEosinophils (Bld) [#/Vol]0.2 10*3/uL0.0 - 0.45 10*3/uLNOMS HealthcareEosinophils/100 WBC Manual cnt (Syn fld)2.4 %.[facility] Medical CenterErythrocyte distribution width (RBC) [Ratio] 16.4 %High11.9 - 15.3 %[facility] CenterHematocrit (Bld) [Volume fraction]34 %34.0 - 46.4 %[facility] CenterHemoglobin (Bld) [Mass/Vol]11.1 g/dLLow11.8 - 15.4 g/dL [facility] CenterInterpretation and review of laboratory resultsAbnormalCass Medical CenterLymphocytes (Bld) [#/Vol]2.5 10*3/uL1.00 - 4.8 10*3/uLNOMS Healthcare Lymphocytes/100 WBC Manual cnt (Syn fld)37 %.[facility] Medical CenterMCH (RBC) [Entitic mass]23.8 pgLow24.7 - 34.3 pgSt. Louis Children's HospitalHC (RBC) [Mass/Vol]32.6 g/dL32.0 - 35.0 g/dLCass Medical CenterMCV (RBC) [Entitic vol]72.9 fLLow80 - 100 fLBEAR RIVER VALLEY HOSPITAL HealthcareMonocytes (Bld) [#/Vol]0.6 10*3/uL0.0 - 0.8 10*3/uLNOMS Healthcare Monocytes+Macrophages/100 WBC Manual cnt (Syn fld)8.9 %.[facility] Neutrophils (Bld) [#/Vol]3.5 10*3/uL1.8 - 7.7 10*3/uLNOMS Healthcare Neutrophils/100 WBC Manual cnt (Syn fld)50.6 %.[facility] HealthcareNRBC0.2 /100{WBC}0 - 0.5 /100{WBC}[facility] Medical CenterPlatelet mean volume (Bld) [Entitic vol]7.9 fL6.3 - 10.7 fLBEAR RIVER VALLEY HOSPITAL HealthcarePlatelets (Bld) [#/Vol]300 10*3/uL150 - 450 10*3/uLNOCO HealthcareRBC LM.HPF (Urine sed) [#/Area]4.66 10*6/uL3.60 - 5.00 10*6/uLNOMS HealthcareWBC (Bld) [#/Vol]6.8 10*3/uL3.8 - 11.6 10*3/uLNOMS HealthcareWBC LM.HPF (Urine sed) [#/Area]6.8 10*3/uL3.8 - 11.6 10*3/uLNOMS HealthcareNOMS HealthcareCalcium [Mass/volume] in Serum or PlasmaOrdered By: Herman Thomas on 11-12-8840Owmrpjv [Mass/Vol]Calcium [Mass/volume] in Serum or Plasma8.6-10.3 [facility] HospitalCarbon dioxide, total [Moles/volume] in Serum or PlasmaOrdered By: Herman Thomas on 70-96-9011NS6 [Moles/Vol]Carbon dioxide, total [Moles/volume] in Serum or Okmhpz88.0-31.0[facility] HospitalChloride [Moles/volume] in Serum or PlasmaOrdered By: Herman Thomas on 68-11-7732Yeuadfkg [Moles/Vol]Chloride [Moles/volume] in Serum or Feiwqz55-492 [facility] HospitalComplete Blood Count Auto Diffon 10-19-2024 Basophils (Bld) [#/Vol]0.1 10*3/uLNormal0.0-0.2The [facility] Physician Group Comment on above:Result Comment: PERFORMED BY: [place] [address] PATHOLOGIST AIX ARCHITECT CANDACE STANTON M.D.Performed By: #### CBC #### [facility] [address] [place] [address] USABasophils/100 WBC (Bld)1.1 %Normal.The [facility] Physician GroupComment on above:Performed By: #### CBC #### [facility] [address] [place] [address] USAEosinophils (Bld) [#/Vol]0.2 10*3/uLNormal0.0-0.45The [facility] Physician GroupComment on above:Performed By: #### CBC #### [facility] [address] [place] [address] USAEosinophils/100 WBC (Bld)2.4 %Normal.The [facility] Physician GroupComment on above:Performed By: #### CBC #### [place] [address] USAErythrocyte distribution width (RBC) [Ratio]16.4 %High 11.9-15.3The [facility] Physician GroupComment on above:Performed By: #### CBC #### [place] [address] USAHematocrit (Bld) [Volume fraction]34.0 %Ygwtxx46.0-46.4The [facility] Physician GroupComment on above:Performed By: #### CBC #### [place] [address] USAHemoglobin (Bld) [Mass/Vol]11.1 g/dLLow11.8-15.4The [facility] Physician GroupComment on above:Performed By: #### CBC #### [place] [address] USALymphocytes (Bld) [#/Vol]2.5 10*3/uLNormal1.00-4.8The [facility] Physician GroupComment on above:Performed By: #### CBC #### [place] [address] USALymphocytes/100 WBC (Bld)37.0 %Normal.The [facility] Physician GroupComment on above:Performed By: #### CBC #### [place] [address] USAMCH (RBC) [Entitic mass]23.8 pgLow24.7-34.3The [facility] Physician GroupComment on above:Performed By: #### CBC #### [place] [address] USAMCV (RBC) [Entitic vol]72.9 zXMml30-826Sae [facility] Physician GroupComment on above:Performed By: #### CBC #### [place] [address] USAMean Corpuscular HGB Conc32.6 g/gQZfvssu60.0-35.0The [facility] Physician GroupComment on above:Performed By: #### CBC #### [facility] [address] [place] [address] USAMonocytes (Bld) [#/Vol]0.6 10*3/uLNormal0.0-0.8The [facility] Physician GroupComment on above:Performed By: #### CBC #### [facility] [address] [place] [address] USAMonocytes/100 WBC (Bld)8.9 %Normal.The [facility] Physician GroupComment on above:Performed By: #### CBC #### [facility] [address] [place] [address] USANeutrophils (Bld) [#/Vol]3.5 10*3/uLNormal1.8-7.7The [facility] Physician GroupComment on above:Performed By: #### CBC #### [facility] [address] [place] [address] USANeutrophils/100 WBC (Bld)50.6 %Normal.The [facility] Physician GroupComment on above:Performed By: #### CBC #### [facility] [address] [place] [address] USANRBC%0.2 /100{WBC}Normal0-0.5The [facility] Comment on above:Performed By: #### CBC #### [facility] [address] [place] [address] USAPlatelet mean volume (Bld) [Entitic vol]7.9 fLNormal 6.3-10.7The [facility] Physician GroupComment on above:Performed By: #### CBC #### [facility] [address] [place] [address] USAPlatelets (Bld) [#/Vol]300 10*3/sOWfzjxw468-623Lpl [facility] Physician GroupComment on above:Performed By: #### CBC #### [facility] [address] [place] [address] USARBC (Bld) [#/Vol]4.66 10*6/uLNormal3.60-5.00The [facility] Physician GroupComment on above:Performed By: #### CBC #### [facility] [address] [place] [address] USAWBC (Bld) [#/Vol]6.8 10*3/uLNormal3.8-11.6The [facility] Physician GroupComment on above:Performed By: #### CBC #### [facility] [address] [place] [address] USACreatinine [Mass/volume] in Serum or PlasmaOrdered By: Herman Thomas on 16-62-2346Wqpxrlqcjp [Mass/Vol]Creatinine [Mass/volume] in Serum or Plasma0.60-1.20[facility] HospitalECG 12 lead ECGon 45-09-6045JST 12 lead ECGCLEVELAND CLINIC AKRON GENERAL [place] [address] [place] [address] Electrocardiograph Report Signed Patient: Kassie Crawford MR#: [id number] : 2000 Acct:[id number] Age/Sex: 24 / F ADM Date: 10/19/24 Loc: Room: Type: [facility] Attending Dr: Herman Thomas DO Ordering Provider: [...] previous ECGs available Confirmed by Marcos Trinh ([id number]) on 10/20/2024 2:54:29 PM Referred By: Electronically Signed By: Marcos Trinh Transcribed By: MUS Signed By Marcos Trinh MD 10/20/24 1454[facility] Physician GroupEosinophils Auto (Bld) [#/Vol] Ordered By: Herman Thomas on 92-99-9938Oynwonxinln (Bld) [#/Vol]Automated eosinophil count0.0-0.45[facility] HospitalEosinophils/100 WBC Auto (Bld)Ordered By: Herman Thomas on 81-55-8854Zljhgxgvxgg/100 WBC (Bld) Automated eosinophil %.[facility] HospitalErythrocyte distribution width Auto (RBC) [Ratio]Ordered By: Herman Thomas on 33-89-4970Tinfvmstttw distribution width (RBC) [Ratio]Erythrocyte distribution width [Ratio] by Automated dbuikSejt22.9-15.3FOhio State Harding HospitalGlucose [Mass/volume] in Serum or PlasmaOrdered By: Herman Thomas on 25-97-2985Xcqerdq [Mass/Vol]Glucose [Mass/volume] in Serum or Uneirs23-894LcwiwjtwdBethesda North HospitalComment on above:ADA recommended reference rangeRandom Glucose Reference Range is dependent on time and content of last meal. Glucose of more than 200 mg/dL in a nonstressed, ambulatory subject supports the diagnosisof Diabetes Mellitus.Hematocrit Auto (Bld) [Volume fraction]Ordered By: Herman Thomas on 70-32-2004Ucfcqiawpq (Bld) [Volume fraction]Hematocrit [Volume Fraction] of Blood by Automated count34.0-46.4FOhio State Harding Hospital Hemoglobin [Mass/volume] in BloodOrdered By: Herman Thomas on 10-19-2024 Hemoglobin (Bld) [Mass/Vol]Hemoglobin [Mass/volume] in ToggbLuq70.8-15.4 [facility] HospitalLeukocytes [#/volume] corrected for nucleated erythrocytes in Blood by Automated counOrdered By: Herman Thomas on 10-19-2024 WBC corrected for nucl RBC Auto (Bld) [#/Vol]Leukocytes [#/volume] corrected for nucleated erythrocytes in Blood by Automated coun3.8-11.6FOhio State Harding HospitalLymphocytes Auto (Bld) [#/Vol]Ordered By: Herman Thomas on 84-28-2540Ppccatskhgp (Bld) [#/Vol]Lymphocytes [#/volume] in Blood by Automated count1.00-4.8[facility] HospitalLymphocytes/100 WBC Auto (Bld) Ordered By: Herman Thomas on 41-26-8703Annzexhfxvi/100 WBC (Bld) Lymphocytes/100 leukocytes in Blood by Automated count.[facility] HospitalMCH Auto (RBC) [Entitic mass]Ordered By: Herman Thomas on 58-37-0597WMF (RBC) [Entitic mass]MCH [Entitic mass] by Automated countLow 24.7-34.3FOhio State Harding HospitalMCHC Auto (RBC) [Mass/Vol]Ordered By: Herman Thomas on 56-08-2018XSMX (RBC) [Mass/Vol]MCHC [Mass/volume] by Automated count32.0-35.0[facility] HospitalMCV Auto (RBC) [Entitic vol]Ordered By: Herman Thomas on 38-67-9089SFX (RBC) [Entitic vol]MCV [Entitic volume] by Automated dmwvnPin88-078BagdrftyaBethesda North Hospital Monocytes Auto (Bld) [#/Vol]Ordered By: Herman Thomas on 57-00-5185Prntfandy (Bld) [#/Vol]Automated blood monocyte count0.0-0.8[facility] HospitalMonocytes/100 WBC Auto (Bld)Ordered By: Herman Thomas on 10-19-2024 Monocytes/100 WBC (Bld)Automated monocyte %.[facility] Neutrophils Auto (Bld) [#/Vol]Ordered By: Herman Thomas on 10-19-2024 Neutrophils (Bld) [#/Vol]Neutrophils [#/volume] in Blood by Automated count 1.8-7.7FOhio State Harding HospitalNeutrophils/100 WBC Auto (Bld)Ordered By: Herman Thomas on 49-69-2020Uzdhwgngexm/100 WBC (Bld)Automated neutrophil % .[facility] HospitalNo Panel InformationOrdered By: Herman Thomas on 62-99-6785Vsxplzyun GFR (CKD-EPI)> 60.0 mL/MinBethesda North HospitalPharmacy Creatinine Clearance (ChemN/[facility]UMed[facility] Community HospitalNucleated erythrocytes [Presence] in Blood by Automated countOrdered By: Herman Thomas on 09-83-7094Jjhphnegu RBC Auto Ql (Bld)Nucleated erythrocytes [Presence] in Blood by Automated count0-0.5FOhio State Harding Hospital Platelet mean volume Auto (Bld) [Entitic vol]Ordered By: Herman Thomas on 58-47-6605Lwqrvwjn mean volume (Bld) [Entitic vol]Platelet mean volume [Entitic volume] in Blood by Automated count6.3-10.7FOhio State Harding Hospital Platelets Auto (Bld) [#/Vol]Ordered By: Herman Thomas on 08-07-5366Ajfikvobm (Bld) [#/Vol]Platelets [#/volume] in Blood by Automated -515VofmrjpfzBethesda North HospitalPotassium [Moles/volume] in Serum or PlasmaOrdered By: Herman Thomas on 50-60-3582Txapqtnrz [Moles/Vol]Potassium [Moles/volume] in Serum or Plasma3.5-5.1FOhio State Harding HospitalRBC Auto (Bld) [#/Vol] Ordered By: Herman Thomas on 81-04-2529CJS (Bld) [#/Vol]Erythrocytes [#/volume] in Blood by Automated count3.60-5.00[facility] Serum or plasma anion gap determinationOrdered By: Herman Thomas on 10-19-2024 Anion gap [Moles/Vol]Serum or plasma anion gap determination6.0-15.0[facility] Hospitalodium [Moles/volume] in Serum or PlasmaOrdered By: Herman Thomas on 35-74-0155Pjdece [Moles/Vol]Sodium [Moles/volume] in Serum or Egrjqr104-050JsojymdueBethesda North HospitalUrea nitrogen [Mass/volume] in Serum or PlasmaOrdered By: Herman Thomas on 27-67-4689Guvb nitrogen [Mass/Vol] Urea nitrogen [Mass/volume] in Serum or Plasma7-25[facility] HospitalWBC Auto (Bld) [#/Vol]Ordered By: Herman Thomas on 43-97-9118HUH (Bld) [#/Vol]Leukocytes [#/volume] in Blood by Automated count3.8-11.6FOhio State Harding HospitalAerobic Cultureon 79-55-2471Vwqrykm CultureComment Left Inguinal Light Normal Skin Kary 2 Days Comment Left Inguinal Anaerobic Culture Results No Anaerobes Isolated 3 Days Comment Left Inguinal Gram Stain Result 1+ White Blood Cells No Bacteria Seen PERFORMED BY: [place] [id number] PATHOLOGIST AIX ARCHITECT CANDACE STANTON M.D.[facility] Physician GroupComment on above: Performed By: #### AERC, GS #### [address] [address] USAAerobic cultureOrdered By: Tuan Haas on 09-09-2024 Bacteria identified Aer cx Nom (Unsp spec)Aerobic cultureBethesda North HospitalAnaerobic cultureOrdered By: Tuan Haas on 52-38-6948Jhaufjrt identified Anaer cx Nom (Unsp spec)Anaerobic cultureBethesda North HospitalGram Stainon 17-52-8896Wlmxitxmffk observation Gram stain Nom (Unsp spec) Comment Left Inguinal Gram Stain Result 1+ White Blood Cells No Bacteria Seen PERFORMED BY: [address] [address] PATHOLOGIST AIX ARCHITECT CANDACE STANTON M.D.NormalHca Florida Citrus Hospital Physician GroupComment on above: Performed By: #### AERC, GS #### [address] [address] USAGram stain microscopyOrdered By: Tuan Haas on 09-09-2024 Microscopic observation Gram stain Nom (Unsp spec)Gram stain microscopyBethesda North HospitalCT soft tissue neck wo conon 72-96-2635QS soft tissue neck wo [facility] Main [address] [address] [address] Scan Report Signed Patient: Kassie Crawford MR#: [id number] : 2000 Acct:[id number] Age/Sex: 24 / F ADM Date: 09/06/24 [facility] Attending Dr: Tuan Haas DO Copies to: [...] Evangelista Kenyon M.D.09/06/2024 4:55 PM Dictation Location: [place] [address] Transcribed By: [facility] 09/06/241654 Dictated By: Evangelista Kenyon MD 09/06/24 1637 Signed By: 09/06/24 1655[facility] Physician GroupAlanine aminotransferase [Enzymatic activity/volume] in Serum or PlasmaOrdered By: Tuan Haas on 94-92-0834XLC [Catalytic activity/Vol]Alanine aminotransferase [Enzymatic activity/volume] in Serum or Plasma7-52[facility] HospitalAlbumin [Mass/volume] in Serum or Plasma by Bromocresol green (BCG) dye binding metho Ordered By: Tuan Haas on 55-07-2200Kpnfhky BCG dye [Mass/Vol]Albumin [Mass/volume] in Serum or Plasma by Bromocresol green (BCG) dye binding metho 3.5-5.7FOhio State Harding HospitalAlkaline phosphatase [Enzymatic activity/volume] in Serum or PlasmaOrdered By: Tuan Haas on 77-34-5383KXI [Catalytic activity/Vol]Alkaline phosphatase [Enzymatic activity/volume] in Serum or Ukjzjx30-947TirwprebcBethesda North HospitalAspartate aminotransferase [Enzymatic activity/volume] in Serum or PlasmaOrdered By: Tuan Haas on 44-03-8789IVK [Catalytic activity/Vol]Aspartate aminotransferase [Enzymatic activity/volume] in Serum or Mygsdf44-04XwhhjxyczBethesda North Hospital Basophils Auto (Bld) [#/Vol]Ordered By: Tuan Haas on 54-06-8858Vwdoxotlv (Bld) [#/Vol]Automated basophil count0.0-0.2FOhio State Harding Hospital Basophils/100 WBC Auto (Bld)Ordered By: Tuan Haas on 99-51-5509Hmiburuzm/100 WBC (Bld)Automated basophil %.[facility] HospitalBilirubin.total [Mass/volume] in Serum or PlasmaOrdered By: Tuan Haas on 73-38-0488Tisfwvhxq [Mass/Vol]Bilirubin.total [Mass/volume] in Serum or Plasma0.3-1.0[facility] HospitalCalcium [Mass/volume] in Serum or PlasmaOrdered By: Tuan Haas on 32-18-2959Gkdtilf [Mass/Vol]Calcium [Mass/volume] in Serum or Plasma 8.6-10.3FOhio State Harding HospitalCarbon dioxide, total [Moles/volume] in Serum or PlasmaOrdered By: Tuan Haas on 41-62-2598GW3 [Moles/Vol]Carbon dioxide, total [Moles/volume] in Serum or Jzmlsw32.0-31.0[facility] HospitalChloride [Moles/volume] in Serum or PlasmaOrdered By: Tuan Haas on 80-83-2219Ebuokllk [Moles/Vol]Chloride [Moles/volume] in Serum or PlasmaHigh 98-107[facility] HospitalComplete Blood Count Auto Diffon 77-35-6385Spgpeaczk (Bld) [#/Vol]0.1 10*3/uLNormal0.0-0.2The [facility] Physician GroupComment on above:Result Comment: PERFORMED BY: [place] [address] [place] [address] PATHOLOGIST AIX ARCHITECT CANDACE STANTON M.D.Performed By: #### CBC, CMP, MONOTEST #### [place] [address] USABasophils/100 WBC (Bld)0.8 %Normal.The [facility] Physician GroupComment on above:Performed By: #### CBC, CMP, MONOTEST #### [place] [address] USAEosinophils (Bld) [#/Vol]0.2 10*3/uLNormal0.0-0.45The [facility] Physician GroupComment on above:Performed By: #### CBC, CMP, MONOTEST #### [place] [address] USAEosinophils/100 WBC (Bld)2.9 %Normal.The [facility] Physician GroupComment on above:Performed By: #### CBC, CMP, MONOTEST #### [place] [address] USAErythrocyte distribution width (RBC) [Ratio]17.0 %High 11.9-15.3The [facility] Physician GroupComment on above:Performed By: #### CBC, CMP, MONOTEST #### [place] [address] USAHematocrit (Bld) [Volume fraction]33.9 %Low34.0-46.4The [facility] Physician GroupComment on above:Performed By: #### CBC, CMP, MONOTEST #### [place] [address] USAHemoglobin (Bld) [Mass/Vol]10.7 g/dLLow11.8-15.4The [facility] Physician GroupComment on above:Performed By: #### CBC, CMP, MONOTEST #### [place] [address] USALymphocytes (Bld) [#/Vol]1.9 10*3/uLNormal1.00-4.8The [facility] Physician GroupComment on above:Performed By: #### CBC, CMP, MONOTEST #### [facility] [address] [place] [address] USALymphocytes/100 WBC (Bld)29.7 %Normal.The [facility] Physician GroupComment on above:Performed By: #### CBC, CMP, MONOTEST #### [facility] [address] [place] [address] USAH (RBC) [Entitic mass]23.1 pgLow24.7-34.3The [facility] Physician GroupComment on above:Performed By: #### CBC, CMP, MONOTEST #### [facility] [address] [place] [address] USAMCV (RBC) [Entitic vol]73.4 oBSte56-921Vxj [facility] Physician GroupComment on above:Performed By: #### CBC, CMP, MONOTEST #### [place] [address] USAMean Corpuscular HGB Conc31.5 g/dLLow32.0-35.0The [facility] Physician GroupComment on above:Performed By: #### CBC, CMP, MONOTEST #### [place] [address] USAMonocytes (Bld) [#/Vol]0.5 10*3/uLNormal0.0-0.8The [facility] Physician GroupComment on above:Performed By: #### CBC, CMP, MONOTEST #### [place] [address] USAMonocytes/100 WBC (Bld)7.5 %Normal.The [facility] Physician GroupComment on above:Performed By: #### CBC, CMP, MONOTEST #### [place] [address] USANeutrophils (Bld) [#/Vol]3.8 10*3/uLNormal1.8-7.7The [facility] Physician GroupComment on above:Performed By: #### CBC, CMP, MONOTEST #### [place] [address] USANeutrophils/100 WBC (Bld)59.1 %Normal.The [facility] Physician GroupComment on above:Performed By: #### CBC, CMP, MONOTEST #### [place] [address] USANRBC%0.1 /100{WBC}Normal0-0.5The [facility] Comment on above:Performed By: #### CBC, CMP, MONOTEST #### [place] [address] USAPlatelet mean volume (Bld) [Entitic vol]8.4 fLNormal 6.3-10.7The [facility] Physician GroupComment on above:Performed By: #### CBC, CMP, MONOTEST #### [place] [address] USAPlatelets (Bld) [#/Vol]317 10*3/hOXpfdsj056-202Vrc [facility] Physician GroupComment on above:Performed By: #### CBC, CMP, MONOTEST #### [place] [address] USARBC (Bld) [#/Vol]4.62 10*6/uLNormal3.60-5.00The [facility] Physician GroupComment on above:Performed By: #### CBC, CMP, MONOTEST #### [place] [address] USAWBC (Bld) [#/Vol]6.5 10*3/uLNormal3.8-11.6The [facility] Physician GroupComment on above:Performed By: #### CBC, CMP, MONOTEST #### [place] [address] USAComprehensive Metabolic Panelon 74-76-4464Cjmqvni [Mass/Vol]4.2 g/dLNormal3.5-5.7The [facility] Physician GroupComment on above: Performed By: #### CBC, CMP, MONOTEST #### [place] [address] USAAlbumin/Globulin [Mass ratio]1.2 {ratio}NormalThe [facility] Physician GroupComment on above:Performed By: #### CBC, CMP, MONOTEST #### [place] [address] USAALP [Catalytic activity/Vol]92 U/WWqwhid67-639Lfl [facility] Physician GroupComment on above:Result Comment: PERFORMED BY: [place] [address] PATHOLOGIST AIX ARCHITECT CANDACE STANTON M.D.Performed By: #### CBC, CMP, MONOTEST #### [place] [address] USAALT [Catalytic activity/Vol]18 U/LNormal7-52The [facility] Physician GroupComment on above:Performed By: #### CBC, CMP, MONOTEST #### [place] [address] USAAnion gap [Moles/Vol]12.2 mmol/LNormal6.0-15.0The [facility] Physician GroupComment on above:Performed By: #### CBC, CMP, MONOTEST #### [place] [address] USAAST [Catalytic activity/Vol]16 U/LStolob30-83Wms [facility] Physician GroupComment on above:Performed By: #### CBC, CMP, MONOTEST #### [place] [address] USABilirubin [Mass/Vol]0.5 mg/dLNormal0.3-1.0The [facility] Physician GroupComment on above:Performed By: #### CBC, CMP, MONOTEST #### [place] [address] USACalcium [Mass/Vol]9.0 mg/dLNormal8.6-10.3The [facility] Physician GroupComment on above:Performed By: #### CBC, CMP, MONOTEST #### [place] [address] USAChloride [Moles/Vol]108 mmol/BTcia08-042Sqb [facility] Physician GroupComment on above:Performed By: #### CBC, CMP, MONOTEST #### [address] [place] [address] USACO2 [Moles/Vol]23.0 mmol/PXqxvru81.0-31.0The [facility] Physician GroupComment on above:Performed By: #### CBC, CMP, MONOTEST #### [facility] [address] [place] [address] USACreatinine [Mass/Vol]0.81 mg/dLNormal0.60-1.20The [facility] Physician GroupComment on above:Performed By: #### CBC, CMP, MONOTEST #### [facility] [address] [place] [address] USAGFR/1.73 sq M.predicted MDRD (S/P/Bld) [Vol rate/Area] mL/min/{1.73_m2}NormalThe [facility] Physician GroupComment on above:Performed By: #### CBC, CMP, MONOTEST #### [facility] [address] [place] [address] USAGlobulin (S) [Mass/Vol]3.4 g/dLNormalThe [facility] Physician GroupComment on above:Performed By: #### CBC, CMP, MONOTEST #### [place] [address] USAGlucose [Mass/Vol]85 mg/qSPqxmrp54-757Kua [facility] Physician GroupComment on above:Result Comment: Random Glucose Reference Range is dependent on time and content of last meal. Glucose of more than 200 mg/dL in a nonstressed, ambulatory subject supports the diagnosis of Diabetes Mellitus. ADA recommended reference rangePerformed By: #### CBC, CMP, MONOTEST #### [facility] [address] [place] [address] USAPotassium [Moles/Vol]4.2 mmol/LNormal3.5-5.1The [facility] Physician GroupComment on above:Performed By: #### CBC, CMP, MONOTEST #### [facility] [address] [place] [address] USAProtein [Mass/Vol]7.6 g/dLNormal6.4-8.9The [facility] Physician GroupComment on above:Performed By: #### CBC, CMP, MONOTEST #### [facility] [address] [place] [id number] USASodium [Moles/Vol]139 mmol/OKyykbi187-617Uoe [facility] Physician GroupComment on above:Performed By: #### CBC, CMP, MONOTEST #### [facility] [address] [place] [address] USAUrea nitrogen [Mass/Vol]15 mg/dLNormal7-25The [facility] Physician GroupComment on above:Performed By: #### CBC, CMP, MONOTEST #### [facility] [address] [place] [address] USACreatinine [Mass/volume] in Serum or PlasmaOrdered By: Tuan Haas on 94-67-0284Yxhararjbz [Mass/Vol]Creatinine [Mass/volume] in Serum or Plasma0.60-1.20[facility] HospitalEosinophils Auto (Bld) [#/Vol]Ordered By: Tuan Haas on 38-47-6910Ovclcelfcto (Bld) [#/Vol]Automated eosinophil count0.0-0.45[facility] HospitalEosinophils/100 WBC Auto (Bld)Ordered By: Tuan Haas on 06-81-9693Smwdlselgur/100 WBC (Bld)Automated eosinophil %.[facility] HospitalErythrocyte distribution width Auto (RBC) [Ratio]Ordered By: Tuan Haas on 37-00-1293Pztkanomsmo distribution width (RBC) [Ratio]Erythrocyte distribution width [Ratio] by Automated countHigh 11.9-15.3FOhio State Harding HospitalGlobulin Calc (S) [Mass/Vol]Ordered By: Tuan Haas on 65-04-9305Leuegvib (S) [Mass/Vol]Serum globulin measurement by calculation (mass/volume)[facility] HospitalGlucose [Mass/volume] in Serum or PlasmaOrdered By: Tuan Haas on 07-87-2422Hgudkli [Mass/Vol]Glucose [Mass/volume] in Serum or Grzqoc56-597QolidehibBethesda North HospitalComment on above:ADA recommended reference rangeRandom Glucose Reference Range is dependent on time and content of last meal. Glucose of more than 200 mg/dL in a nonstressed, ambulatory subject supports the diagnosisof Diabetes Mellitus. Hematocrit Auto (Bld) [Volume fraction]Ordered By: Tuan Haas on 08-04-2024 Hematocrit (Bld) [Volume fraction]Hematocrit [Volume Fraction] of Blood by Automated wmyonBpu09.0-46.4FOhio State Harding HospitalHemoglobin [Mass/volume] in BloodOrdered By: Tuan Haas on 48-40-5279Sjfogvxwei (Bld) [Mass/Vol]Hemoglobin [Mass/volume] in CgzfnPvv73.8-15.4FOhio State Harding HospitalLeukocytes [#/volume] corrected for nucleated erythrocytes in Blood by Automated counOrdered By: Tuan Haas on 51-86-8612WAU corrected for nucl RBC Auto (Bld) [#/Vol]Leukocytes [#/volume] corrected for nucleated erythrocytes in Blood by Automated coun3.8-11.6FOhio State Harding Hospital Lymphocytes Auto (Bld) [#/Vol]Ordered By: Tuan Haas on 70-59-7313Lctivqzzvjp (Bld) [#/Vol]Lymphocytes [#/volume] in Blood by Automated count1.00-4.8[facility] HospitalLymphocytes/100 WBC Auto (Bld)Ordered By: Tuan Haas on 28-01-4283Svepdqoqhzl/100 WBC (Bld)Lymphocytes/100 leukocytes in Blood by Automated count.[facility] HospitalH Auto (RBC) [Entitic mass] Ordered By: Tuan Haas on 95-63-9661KSB (RBC) [Entitic mass]MCH [Entitic mass] by Automated cyhjzMdu78.7-34.3FOhio State Harding HospitalMCHC Auto (RBC) [Mass/Vol]Ordered By: Tuan Haas on 11-33-5951PVFB (RBC) [Mass/Vol]MCHC [Mass/volume] by Automated mbdukZrg86.0-35.0[facility] HospitalMCV Auto (RBC) [Entitic vol]Ordered By: Tuan Haas on 59-94-9359ACR (RBC) [Entitic vol]MCV [Entitic volume] by Automated wkfyoJta62-524HzionddkvBethesda North HospitalMonocytes Auto (Bld) [#/Vol]Ordered By: Tuan Haas on 28-05-5153Tubwtwxim (Bld) [#/Vol]Automated blood monocyte count0.0-0.8[facility] HospitalMonocytes/100 WBC Auto (Bld)Ordered By: Tuan Haas on 08-04-2024 Monocytes/100 WBC (Bld)Automated monocyte %.[facility] Monoteston 31-45-3307WgcdybqcSokoumdhPpbsuqHfgopnxwNzl [facility] Comment on above:Result Comment: PERFORMED BY: [facility] [address] [facility] [place] [address] PATHOLOGIST AIX ARCHITECT CANDACE STANTON M.D.Performed By: #### CBC, CMP, MONOTEST #### [place] [address] USANeutrophils Auto (Bld) [#/Vol]Ordered By: Tuan Haas on 33-47-4516Isqzrbaiqjw (Bld) [#/Vol]Neutrophils [#/volume] in Blood by Automated count1.8-7.7FOhio State Harding HospitalNeutrophils/100 WBC Auto (Bld) Ordered By: Tuan Haas on 88-01-8689Artohbzviaa/100 WBC (Bld)Automated neutrophil %.[facility] HospitalNo Panel InformationOrdered By: Tuan Haas on 22-15-1533Rasotsuby GFR (CKD-EPI)> 60.0 mL/MinBethesda North HospitalPharmacy Creatinine Clearance (ChemN/AFOhio State Harding HospitalNucleated erythrocytes [Presence] in Blood by Automated countOrdered By: Tuan Haas on 44-99-9866Zwzasvnxh RBC Auto Ql (Bld)Nucleated erythrocytes [Presence] in Blood by Automated count0-0.5FOhio State Harding Hospital Platelet mean volume Auto (Bld) [Entitic vol]Ordered By: Tuan Haas on 75-87-0794Cjwbkanc mean volume (Bld) [Entitic vol]Platelet mean volume [Entitic volume] in Blood by Automated count6.3-10.7FOhio State Harding Hospital Platelets Auto (Bld) [#/Vol]Ordered By: Tuan Haas on 31-82-8221Gkfngdxld (Bld) [#/Vol]Platelets [#/volume] in Blood by Automated xgkuz750-727FwqmguxgcBethesda North HospitalPotassium [Moles/volume] in Serum or PlasmaOrdered By: Tuan Haas on 87-24-4480Mujsyzwxl [Moles/Vol]Potassium [Moles/volume] in Serum or Plasma 3.5-5.1FOhio State Harding HospitalProtein [Mass/volume] in Serum or Plasma Ordered By: Tuan Haas on 31-55-6200Onuwhef [Mass/Vol]Protein [Mass/volume] in Serum or Plasma6.4-8.9[facility] HospitalRBC Auto (Bld) [#/Vol] Ordered By: Tuan Haas on 27-16-3405LJN (Bld) [#/Vol]Erythrocytes [#/volume] in Blood by Automated count3.60-5.00[facility] Hospitalerum heterophile antibody detection by latex agglutinationOrdered By: Tuan Haas on 21-66-2403Ojffzwxbwuk Ab LA Ql (S)Serum heterophile antibody detection by latex agglutinationNegativeMercy Health St. Elizabeth Youngstown Hospitalerum or plasma albumin/globulin mass ratioOrdered By: Tuan Haas on 05-01-3458Qnlxjep/Globulin [Mass ratio]Serum or plasma albumin/globulin mass ratioMercy Health St. Elizabeth Youngstown Hospitalerum or plasma anion gap determinationOrdered By: Tuan Haas on 93-16-7446Arnqf gap [Moles/Vol]Serum or plasma anion gap determination6.0-15.[address] [facility] Hospitalodium [Moles/volume] in Serum or PlasmaOrdered By: Tuan Haas on 19-63-5888Uabeid [Moles/Vol]Sodium [Moles/volume] in Serum or Jsthkp037-107PqiqialyqBethesda North HospitalUrea nitrogen [Mass/volume] in Serum or PlasmaOrdered By: Tuan Haas on 61-79-7817Rnky nitrogen [Mass/Vol]Urea nitrogen [Mass/volume] in Serum or Plasma7-25[facility] WBC Auto (Bld) [#/Vol]Ordered By: Tuan Haas on 40-97-3253KFW (Bld) [#/Vol] Leukocytes [#/volume] in Blood by Automated count3.8-11.6FOhio State Harding HospitalDelivery Summaryon 65-69-3841Hafkzmiy SummaryDelivery Summary DATE OF DELIVERY: 07/12/2024 The patient [...] was noted in the cord. The vaginal examrevealed an intact periuterine scar. Arterial cord pH was obtained. The placenta delivered spontaneously intact. The uterus contracted down well, no repair was necessary, and both mom and weredoing well in the Room. You Wilkerson M.D. ca Dictated: 07/14/2024 [id number] Transcribed: 07/14/2024NoRegency Hospital Cleveland EastComment on above:Result Comment: Electronically Signed By: Rhea LAZARO, You Greco\.br\Date and Time Signed: 07/16/24 08:54 ESTGeneral Message Officeon 87-82-6881Vgcampp Message Office General Message Office --- --- --- --- --- --- --- --- --- From: María, DirectInbox To: KASSIE CRAWFORD Sent: 07/15/24 02:30:48 AM EST Subject: Discharge Summary Ready to View A summary regarding your recent visit is available in the Documents section of your health record.[facility] Cross Hospitalurgical Pathology Reporton [id number] Pathology ReportKettering Health Greene Memorial [address] [place] [address]- Surgical Pathology Report Collected Date/Time: 07/12/2024 13:52 EST Pathologist: Nicholas LAZARO PhD, Kiran Costello Received Date/Time: 07/13/2024 07:37 EST Rhea LAZARO, You [...] and no discrete lesions are grossly identified. Senior Portfolio Analyst portion is submitted in three cassettes: 1 - Cord and membrane 2-3 - Placenta parenchyma (DC) DC:MCA Microscopic Description Microscopic examination performed unless gross only specified.[facility] HospitalComment on above:Performed By: #### [id number] #### [facility] [address] [place] [address]Zhmnogydk Clinical Summaryon 51-83-7317Ammlvsvrf Clinical SummaryInpatient Clinical Summary [address] [address] Clinical Summary Person Information Name: KASSIE CRAWFORD [facility] Age: 24 Years : 2000 Sex: Female PCP: TUAN HAAS DO Marital Status: Single Phone: [phone] Race: White Ethnicity: Non- or Language: Singaporean Visit Id: Visit Reason: Speciality: Acuity: 2 PP Enc Type: Inpatient Med Service: Obstetrics Arrival: 07/12/2024 06:28:54 Discharge: 07/14/2024 12:50:00 Dispo Type: Home (Routine DC) Address: [address] [place] [id number] Provider Notes: Diagnosis: H/O section complicating ; History of ; LGA (large for gestational age) ; , delivered Problems Active History of Smoking [...] Mouth every day. omeprazole (omeprazole 20 mg Cap-) Care Team Members: Attending Physician: You Wilkerson MD Consulting Physician: Referring Physician: Follow up: With: Address: When: Dr. Wilkerson [phone] Within 6 weeks Comments: Call for any problems. Call Dr if fever>100.5 F, heavy bleeding Call today to schedule your follow up Support Group first Friday of the Nothing in the vagina for 6 weeks Patient Education Information:[facility]vue HospitalInpatient Patient Summaryon 31-29-8359Bktnljbdh Patient SummaryInpatient Patient Summary [place] [address] Patient Discharge Instructions PERSON INFORMATION Name: KASSIE CRAWFORD Date of : 2000 Current Date: 07/14/2024 13:12:25 PHYSICIANS Admitting Physician: You Wilkerson MD Primary Care Physician: TUAN HAAS DO PCP Comment: Discharge Diagnosis: H/O section complicating ; History of ; LGA (large for gestational age) ; , delivered Condition at Discharge: Stable KASSIE CRAWFORD has [...] Follow up: With: Address: When: Dr. Wilkerson [phone] Within 6 weeks Comments: Call for any [...] M, have received the attached patient education materials/instructions and have verbalized understanding. Patient Signature Date Clinican/Nurse Signature Date MEDICATION LIST New Medications [facility]/pharmacy #[id number], [address], [place] [id number], [phone] ibuprofen (ibuprofen 600 mg Tab) 1 Tablets By Mouth every 6 hours. Refills: 0. Last Dose: Next Dose: Medications to Continue with No Changes Other Medications multivitamin, ( Multivitamins) 1 Tablets By Mouth every day. Last Dose: Next Dose: omeprazole (omeprazole 20 mg Cap-DR) Last Dose: Next Dose: Pharmacy Information: [facility] PATIENT EDUCATION INFORMATION Instructions: Medication Leaflets: You may receive a survey from [employer] asking you to rate your care experience. [...] signed up for this yet, please contact [employer] at [phone] to get signed up today. LUCY Award Nomination The LUCY (Diseases Attacking the Immune SYstem) Award is an international recognition program thathonors and celebrates the skillful, compassionate care nurses provide every day. Anyone who experiences or observes amazing care being provided by a nurse is encouraged to submit a nomination. To nominate your nurse, use your smart phone to scan the QR code below. Thank you for choosing [facility] NormalKettering Memorial Hospital w/Indiceson 88-30-3473Ikaulfkeicj distribution width (RBC) [Ratio]16.0 %High10.9-14.2FNorwalk Memorial HospitalComment on above:Performed By: #### [id number] #### [facility] [address] [place] [address]Lgzmjqqocq (Bld) [Volume fraction]25.9 %Low34.0-46.0[facility]'S HospitalComment on above:Performed By: #### [id number] #### [facility] [address] [place] [address]Zwcgsmtjvk (Bld) [Mass/Vol]8.4 g/dLLow12.0-16.0[facility]S HospitalComment on above:Performed By: #### [id number] #### [facility] [address] [place] [address] 18862Hzvipfvcvnh Auto Ql (Bld)PRESENTInvalid Interpretation Code [facility] HospitalComment on above:Performed By: #### [id number] #### [facility] [address] [place] [address]IVM (RBC) [Entitic mass]23.5 pgLow27.0-34.0[facility]S HospitalComment on above:Performed By: #### [id number] #### [facility] [address] [place] [address]TFSY (RBC) [Mass/Vol]32.5 g/zCEcpkrs59.4-36.0[facility]S HospitalComment on above:Performed By: #### [id number] #### [facility] [address] [place] [address]VIP (RBC) [Entitic vol]72.5 fLLow80.0-100.0[facility]S HospitalComment on above:Performed By: #### [id number] #### [facility] [address] [place] [address]Rpfrblqfpy Ql (Bld)PRESENTInvalid Interpretation CodeDayton Children'S HospitalComment on above:Performed By: #### [id number] #### [facility] [address] [place] [address]Vxmlifev997.0 E9/AQufprq394.0-500.0[facility] Comment on above:Performed By: #### [id number] #### [facility] [address] [place], [place] [address]Ercdgmaj mean volume (Bld) [Entitic vol]8.7 fLNormal6.4-10.8 [facility] HospitalComment on above:Performed By: #### [id number] #### [facility] [address] [place], [place] [address]Jkparsdnlxbdf LM Ql (Bld)PRESENTInvalid Interpretation Code [facility] HospitalComment on above:Performed By: #### [id number] #### [facility] [address] [place] [address]UQO (Bld) [#/Vol]3.6 E12/LLow4.3-5.9[facility] Comment on above:Performed By: #### [id number] #### [facility] [address] [place], [place] [address]QKL size Nom (Bld)NORMALInvalid Interpretation CodeDayton Children'S HospitalComment on above:Performed By: #### [id number] #### [facility] [address] [place] [address]HMW corrected for nucl RBC Auto (Bld) [#/Vol]9.7 E9/LNormal 4.0-11.0[facility]S HospitalComment on above:Performed By: #### [id number] #### [facility] [address] [place] [address]GKGTPOZTRODfojvmp By: SYSTEM SYSTEM on 02-47-1286Pyrhqmdhcbk distribution width (RBC) [Ratio]16.0 %High10.9 - 14.2 %Remisol HemeHematocrit (Bld) [Volume fraction]25.9 %Low34.0 - 46.0 %Remisol HemeHemoglobin (Bld) [Mass/Vol]8.4 g/dLLow12.0 - 16.0 gm/dLRemisol HemeHypochromia Auto Ql (Bld) PRESENT *NA* (07/13/24 5:50 AM)Invalid Interpretation CodeRemisol HemeMCH (RBC) [Entitic mass]23.5 pgLow27.0 - 34.0 pgRemisol HemeMCHC (RBC) [Mass/Vol]32.5 g/dLNormal 31.4 - 36.0 gm/dLRemisol HemeMCV (RBC) [Entitic vol]72.5 fLLow80.0 - 100.0 fL Remisol HemeMicrocytes Ql (Bld)PRESENT *NA* (07/13/24 5:50 AM)Invalid Interpretation CodeRemisol LpjaQrxlxete053.0 E9/L Nvduet403.0 - 500.0 E9/LRemisol HemePlatelet mean volume (Bld) [Entitic vol]8.7 fLNormal6.4 - 10.8 fLRemisol HemePolychromasia LM Ql (Bld)PRESENT *NA* (07/13/24 5:50 AM)Invalid Interpretation CodeRemisol HemeRBC (Bld) [#/Vol]3.6 E12/LLow4.3 - 5.9 E12/LRemisol HemeRBC size Nom (Bld)NORMAL *NA* (07/13/24 5:50 AM)Invalid Interpretation CodeRemisol HemeWBC corrected for nucl RBC Auto (Bld) [#/Vol]9.7 E9/LNormal4.0 - 11.0 E9/LRemisol HemeABO/Rhon 94-24-9789BJP/RhPositiveInvalid Interpretation [facility] Comment on above:Performed By: #### [id number] #### [facility] [address] [place], [place] [address]XCH/Rh History Checkon 51-88-9555PHD/Rh History CheckVerified Hx Blood TypeBellevue HospitalComment on above:Performed By: #### [id number] #### [facility] [address] [place], [place] [address]MUCTib 86-02-3367ERXW Gel InterpNegativeNoRegency Hospital Cleveland EastComment on above:Performed By: #### [id number] ####[facility] [address] [place], [place] [address]OUKRA BANKOrdered By: Michelle Fuentes on 89-56-9059ROO/Rh InterpPositiveInvalid Interpretation [facility] BB SubsectionABSC Gel InterpNegative (07/12/24 7:12 AM)NormalINTEGRIS COMM[facility] [place] BB SubsectionBlood Bank ID#on [id number]# [id number] Interpretation CodeDayton Children'S HospitalComment on above: Performed By: #### [id number] #### [facility] [address] [place], [place] [address]Akgyphfrmoapl Scr Uron 38-73-4716Zjnuaxrnnfqwm Ql (U)Negative NormalNEGATIVEDayton Children'S HospitalComment on above:Result Comment: Negative Cutoff: <5 ng/mL These drug screen results are to be used for medical (i.e., treatment) purposes only. Unconfirmed drug screening results must not be used for non-medical purposes (e.g., employment testing, legal testing).Performed By: #### [id number] #### [facility] [address] [place], [place] [address]HSY w/Indiceson 25-17-1991Exqzoqpimrk distribution width (RBC) [Ratio]16.0 %High10.9-14.2[facility] HospitalComment on above:Performed By: #### [id number] #### [facility] [address] [place], [place] [address]Skkrpcojkd (Bld) [Volume fraction]29.3 %Low34.0-46.0[facility]S HospitalComment on above:Performed By: #### [id number] #### [facility] [address] [place], [place] [address]Mjeoriypbq (Bld) [Mass/Vol]9.7 g/dLLow12.0-16.0[facility]S HospitalComment on above:Performed By: #### [id number] #### [facility] [address] [place], [place] [address]XKA (RBC) [Entitic mass]23.8 pgLow27.0-34.0[facility]'S HospitalComment on above:Performed By: #### [id number] #### [facility] [address] [place] [address] [id number] (RBC) [Mass/Vol]33.1 g/dRQuhthx79.4-36.0Day[facility] Children'S HospitalComment on above:Performed By: #### [id number] #### [facility] [address] [place] [address] 66187FTC (RBC) [Entitic vol]72.1 fLLow80.0-100.0[facility]'S HospitalComment on above:Performed By: #### [id number] #### [facility] [address] [place] [address] 72985Cegemibe mean volume (Bld) [Entitic vol]8.9 fLNormal6.4-10.8 [facility]S HospitalComment on above:Performed By: #### [id number] #### [facility] [address] [place] [address] 87568Jyppkrhvx (Bld) [#/Vol]235.0 E9/GUklzxn493.0-500.0[facility]'S HospitalComment on above:Performed By: #### [id number] #### [facility] [address] [place] [address] 93809ZII (Bld) [#/Vol]4.1 E12/LLow4.3-5.9[facility] Comment on above:Performed By: #### [id number] #### [facility] [address] [place] [address] 03309PWY size Nom (Bld)NORMALInvalid Interpretation CodeDayton Children'S HospitalComment on above:Performed By: #### [id number] #### [facility] [address] [place] [address] 54322EDO corrected for nucl RBC Auto (Bld) [#/Vol]8.5 E9/LNormal 4.0-11.0[facility]'S HospitalComment on above:Performed By: #### [id number] #### [facility] [address] [place], [place] [address]KNPEMZDKVMzaemto By: SYSTEM SYSTEM on 29-37-3558Xbpbgamrurgs Screen method >1000 ng/mL Ql (U)NEGATIVE 7 (07/12/24 7:01 AM)NormalNEGATIVERemisol ChemComment on above:Interpretive Data: Negative Cutoff: <1000 ng/mLBarbiturates Screen Ql (U)NEGATIVE 8 (07/12/24 7:01 AM)NormalNEGATIVERemisol ChemComment on above:Interpretive Data: Negative Cutoff: <200 ng/mLBenzodiazepines Ql (U)NEGATIVE 1 (07/12/24 7:01 AM)NormalNEGATIVERemisol ChemComment on above:Interpretive Data: Negative Cutoff: <200 ng/mLBuprenorphine Ql (U)NEGATIVE 10 (07/12/24 7:01 AM)NormalNEGATIVERemisol ChemComment on above:Interpretive Data: Negative Cutoff: <5 ng/mL These drug screen results are to be used for medical (i.e., treatment) purposes only. Unconfirmed drug screening results must not be used for non-medical purposes (e.g., employment testing, legal testing).Cannabinoids Screen Ql (U) NEGATIVE 6 (07/12/24 7:01 AM)NormalNEGATIVERemisol ChemComment on above:Interpretive Data: Negative Cutoff: <50 ng/mLCocaine Ql (U)NEGATIVE 2 (07/12/24 7:01 AM)NormalNEGATIVERemisol ChemComment on above:Interpretive Data: Negative Cutoff: <300 ng/mLOpiates Screen Ql (U)NEGATIVE 4 (07/12/24 7:01 AM)NormalNEGATIVERemisol ChemComment on above:Interpretive Data: Negative Cutoff: <300 ng/mLPhencyclidine Screen method >25 ng/mL Ql (U)NEGATIVE 5 (07/12/24 7:01 AM)NormalNEGATIVERemisol ChemComment on above:Interpretive Data: Negative Cutoff: <25 ng/mL These drug screen results are to be used for medical (i.e., treatment) purposes only. Unconfirmed drug screening results must not be used for non-medical purposes (e.g., employment testing, legal testing).U FentanylNEGATIVE 9 (07/12/24 7:01 AM)NormalNEGATIVERemisol ChemComment on above:Interpretive Data: Negative Cutoff: <5 ng/mL These drug screen results are to be used for medical (i.e., treatment) purposes only. Unconfirmed drug screening results must not be used for non-medical purposes (e.g., employment testing, legal testing).Extra Blueon 17-05-8705Ppcq Collected PlasmaYesInvalid Interpretation [facility] HospitalComment on above:Performed By: #### [id number] #### [facility] [address] [place], [place] [address]HJJEGRLFFDOtvoxdf By: SYSTEM SYSTEM on 37-27-5674Emzbyayveyd distribution width (RBC) [Ratio]16.0 %High10.9 - 14.2 %Remisol HemeHematocrit (Bld) [Volume fraction]29.3 %Low34.0 - 46.0 %Remisol HemeHemoglobin (Bld) [Mass/Vol]9.7 g/dLLow12.0 - 16.0 gm/dLRemisol HemeMCH (RBC) [Entitic mass]23.8 pgLow27.0 - 34.0 pgRemisol HemeMCHC (RBC) [Mass/Vol]33.1 g/kVOqgasc79.4 - 36.0 gm/dLRemisol HemeMCV (RBC) [Entitic vol]72.1 fLLow80.0 - 100.0 fLRemisol Heme Platelet mean volume (Bld) [Entitic vol]8.9 fLNormal6.4 - 10.8 fLRemisol Heme Platelets (Bld) [#/Vol]235.0 E9/UBpgmps155.0 - 500.0 E9/LRemisol HemeRBC (Bld) [#/Vol]4.1 E12/LLow4.3 - 5.9 E12/LRemisol HemeRBC size Nom (Bld)NORMAL *NA* (07/12/24 7:12 AM)Invalid Interpretation CodeRemisol HemeWBC corrected for nucl RBC Auto (Bld) [#/Vol]8.5 E9/LNormal4.0 - 11.0 E9/LRemisol HemeU Drug Screenon 55-93-4512Nqaipezezzhp Screen method >1000 ng/mL Ql (U)NegativeNormalNEGATIVE [facility]S HospitalComment on above:Result Comment: Negative Cutoff: <1000 ng/mLPerformed By: #### [id number] #### [facility] [address] [place] [address] 06694Anbyukgyiiwq Screen Ql (U)NegativeNormalNEGATIVEDayton Children'S HospitalComment on above:Result Comment: Negative Cutoff: <200 ng/mL Performed By: #### [id number] #### [facility] [address] [place] [address] 13672Rcmdyifpgkymjru Ql (U)NegativeNormalNEGATIVEDayton Children'S HospitalComment on above:Result Comment: Negative Cutoff: <200 ng/mL Performed By: #### [id number] #### [facility] [address] [place] [address] 18201Xgmygawplopz Screen Ql (U)NegativeNormalNEGATIVEDayton Children'S HospitalComment on above:Result Comment: Negative Cutoff: <50 ng/mL Performed By: #### [id number] #### [facility] [address] [place] [address] 42233Tlejlhd Ql (U)[facility] HospitalNormalNEGATIVEDayton Children'S Hospital Comment on above:Result Comment: Negative Cutoff: <300 ng/mLPerformed By: #### [id number] #### [facility] [address] [place] [address] 82105Gmcgxje Screen Ql (U)NegativeNormalNEGATIVEDayton Children'S HospitalComment on above:Result Comment: Negative Cutoff: <300 ng/mLPerformed By: #### [id number] #### [facility] [address] [place] [address] 22651Esbtvnomnpluz Screen method >25 ng/mL Ql (U)NegativeNormal NEGATIVEDayton Children'S HospitalComment on above:Result Comment: Negative Cutoff: <25 ng/mL These drug screen results are to be used for medical (i.e., treatment) purposes only. Unconfirmed drug screening results must not be used for non-medical purposes (e.g., employment testing, legal testing).Performed By: #### [id number] #### [facility] [address] [place], [place] [address]N FentanylNegativeNormalNEGATIVEFisher [facility] Comment on above:Result Comment: Negative Cutoff: <5 ng/mL These drug screen results are to be used for medical (i.e., treatment) purposes only. Unconfirmed drug screening results must not be used for non-medical purposes (e.g., employment testing, legal testing).Performed By: #### [id number] #### [facility] [address] [place], [place] [address]IUHWGXWPMPQnovnir By: SYSTEM SYSTEM on 24-74-9949Bhicpcafu Ql (U)NegativeNormalNegativemg/dLFTMC UA Auto SSClarity (U)Clear (07/12/24 10:11 AM)NormalClearFTM UA Auto SSColor (U)Yellow 3 (07/12/24 10:11 AM)NormalYellowFT UA Auto SSComment on above:Interpretive Data: Microscopic readings are only performed on those samples that meet specific criteria set forth by [facility].Glucose Ql (U)NegativeNormalNegativemg/dLFTMC UA Auto SSHemoglobin Auto test strip (U) [Mass/Vol]NegativeNormalNegativemg/dLFTMC UA Auto SSKetones Auto test strip Ql (U)Trace mg/dLInvalid Interpretation CodeNegativemg/dLFT UA Auto SSLeukocyte esterase Auto test strip Ql (U)NegativeNormalNegativeLeu/uLFTMC UA Auto SS Nitrite Auto test strip Ql (U)NegativeNormalNegativemg/dLFTMC UA Auto SSpH (U) 6.5 *NA* (07/12/24 10:11 AM)Invalid Interpretation Code5.0 - 9.0FT UA Auto SSProtein Ql (U)NegativeNormalNegativemg/dLFTMC UA Auto SSSpecific gravity (U) [Rel density] 1.030 *NA* (07/12/24 10:11 AM)Invalid Interpretation Code1.005 - 1.030[facility] [place] UA Auto SS Urobilinogen (U) [Mass/Vol]NegativeNormalNegativemg/dLINTEGRIS [facility]ITY [facility] [place] UA Auto SSURINALYSIS Ordered By: Satrr Gibbons on 86-09-1399EU Spec DescFoley (07/12/24 10:11 AM)NormalINTEGRIS [facility] [place] UA Auto SSC Urineon 06-27-1883Yifbukoy identified Cx Nom (U)Microbiology PROCEDURE: Urine Culture [R1] SOURCE: U CleanCatch BODY SITE: COLLECTED DATE/TIME: 07/07/2024 12:42 EST RECEIVED DATE/TIME: 07/07/2024 13:03 EST START DATE/TIME: 07/07/2024 13:03 EST FREE TEXT SOURCE: Rhea LAZARO, You Wilkerson MD, You Greco FINAL REPORTS Final Report [] Verified Date/Time: 07/09/2024 10:54 EST <10,000 cfu/ml Mixed skin contaminants Performing Locations R1: This test was performed at: [facility], [address] [place] [address], [facility]- , , SkvsxaJwcmgcBellevue HospitalComment on above:Performed By: #### [id number] #### [facility] [address] [place] [address] 414[address]Kcmpduqag Clinical Summaryon 67-05-8497Burlibnqx Clinical SummaryInpatient Clinical Summary [address] [address] Clinical Summary Person Information Name: KASSIE CRAWFORD [facility] Age: 24 Years : 2000 Sex: Female PCP: TUAN HAAS DO Marital Status: Single Phone: Race: White Ethnicity: Non- or Language: Singaporean Visit Id: Visit Reason: Speciality: Acuity: Obs Enc Type: Outpatient in a Bed Med Service: Obstetrics Arrival: 07/07/2024 12:24:16 Discharge: 07/07/2024 14:11:07 Dispo Type: Home (Routine DC) Address: [address] [place] [id number] Provider Notes: Diagnosis: Problems Active (04/20/2024) History [...] Negative mg/dL UA Leuk Est: 500 Pearl/uL Pearl/uL UA Mucous: Trace graded/LPF UA Nitrite: Negative [...] mg Jaren-) Care Team Members: Attending Physician: You Wilkerson MD Consulting Physician: Referring Physician: Follow up: With: Address: When: Your Doctor at [facility] [phone] 07/12/2024 6:30 AM Comments: Call for any problems. CALL OB DEPT @ 0530 FRIDAY MORNING TO ASSURE BED AVAILABILITY Patient Education Information:[facility] HospitalInpatient Patient Summaryon [id number] Patient SummaryInpatient Patient Summary [address] [address] Patient Discharge Instructions PERSON INFORMATION Name: KASSIE CRAWFORD Date of : 2000 Current Date: 07/07/2024 [...] up: With: Address: When: Your Doctor at [facility] [phone] 07/12/2024 6:30 AM Comments: Call for any problems. CALL OB DEPT @ 0530 FRIDAY MORNING TO ASSURE BED AVAILABILITY In the event that this physician does not participate in your insurance network, please consult with your insurance company to find a nearby participating provider. Comment: IYVETTE ABAGAIL M, have received the attached patient education materials/instructions and have verbalized understanding. Patient Signature Date Clinican/Nurse Signature Date MEDICATION LIST Medications to Continue with No Changes Other Medications multivitamin, ( Multivitamins) 1 Tablets By Mouth every day. Last Dose: Next Dose: omeprazole (omeprazole 20 mg Cap-DR) Last Dose: Next Dose: Pharmacy Information: [facility] PATIENT EDUCATION INFORMATION Instructions: Medication Leaflets: [...] signed up for this yet, please contact [employer] at [phone] to get signed up today. LUCY Award Nomination The LUCY (Diseases Attacking the Immune SYstem) Award is an international recognition program thathonors and celebrates the skillful, compassionate care nurses provide every day. Anyone who experiences or observes amazing care being provided by a nurse is encouraged to submit a nomination. To nominate your nurse, use your smart phone to scan the QR code below. Thank [facility] for [facility] NormalDayton Children'S HospitalUA with Cult Rflxon 93-45-8210Eihztpky Auto Ql (U)2+ /HPFAbnormal TraceDayton Children'S HospitalComment on above:Performed By: #### [id number] #### [facility] [address] [place], [place] [address]Kacivmnqp Ql (U)NegativeNormalNegativeDayton Children'S HospitalComment on above:Performed By: #### [id number] #### [facility] [address] [place], [place] [address]Ppakece (U)TurbidAbnormalClearFNorwalk Memorial Hospital Comment on above:Performed By: #### [id number] #### [facility] [address] [place], [place] [address]Gtwjt (U)Light-YellowNormalYellowDayton Children'S Hospital Comment on above:Result Comment: Microscopic readings are only performed on those samples that meet specific criteria set forth by [facility].Performed By: #### [id number] #### [facility] [address] [place], [place] [address]Muntusujmc cells.squamous Auto (Urine sed) [#/Area]>10Invalid Interpretation CodeDayton Children'S HospitalComment on above:Performed By: #### [id number] #### [facility] [address] [place], [place] [address]Yrvpdrz Ql (U)NegativeNormalNegHolzer Hospital Comment on above:Performed By: #### [id number] #### [facility] [address] [place], [place] [address]Nlafncqklu Auto test strip (U) [Mass/Vol]NegativeNormalNegative [facility]'S HospitalComment on above:Performed By: #### [id number] #### [facility] [address] [place], [place] [address]Qbjzoub Auto test strip Ql (U)NegativeNormalNegativeDayton Children'S HospitalComment on above:Performed By: #### [id number] #### [facility] [address] [place], [place] [address]Daghsllcu esterase Auto test strip Ql (U)500 Pearl/uLAbnormal Wilson HealthComment on above:Performed By: #### [id number] #### [facility] [address] [place], [place] [address]Laxsp Auto Ql (U)TraceNormalNegHolzer Hospital Comment on above:Performed By: #### [id number] #### [facility] [address] [place] [address] 380[address]Nwclnfs Auto test strip Ql (U)NegativeNormalNegHolzer HospitalComment on above:Performed By: #### [id number] #### [facility] [address] [place] [address] 10795yN (U)7.0 [pH]Invalid Interpretation Code5.0-9.0Day[facility] Children'S HospitalComment on above:Performed By: #### [id number] #### [facility] [address] [place] [address]Ezzrlqb Ql (U)NegativeNormalNegHolzer Hospital Comment on above:Performed By: #### [id number] #### [facility] [address] [place] [address] 96709MBT Ql (U)2-8Qiogce9-9KycwziNorwalk Memorial HospitalComment on above:Performed By: #### [id number] #### [facility] [address] [place] [address] 21432Dppdpubd gravity (U) [Rel density]1.013Invalid Interpretation Code1.005-1.030Day[facility] Children'S HospitalComment on above:Performed By: #### [id number] #### [facility] [address] [place] [address] 13387Vahnvkesazlw (U) [Mass/Vol]NegativeNormalNegHolzer HospitalComment on above:Performed By: #### [id number] #### [facility] [address] [place] [address] 51967LXO Auto (Urine sed) [#/Area]1-54Ibdqpirq9-6ZuzizrNorwalk Memorial HospitalComment on above:Performed By: #### [id number] #### [facility] [address] [place] [address] 606[address]Vnzj of Urine collection methodClean CatchBellevue HospitalComment on above:Performed By: #### [id number] #### [facility] [address] [place], [place] [address]FFOQOSHCCKZtjjfsu By: SYSTEM SYSTEM on 06-98-8041Tueoyyjr Auto Ql (U)2+ /HPFInvalid Interpretation CodeTrace/HPFFTMC UA Auto SSBilirubin Ql (U) NegativeNormalNegativemg/dLFTMC UA Auto SSClarity (U)Turbid *ABN* (07/07/24 12:42 PM)Invalid Interpretation CodeClearFTMC UA Auto SSColor (U)Light- Yellow 1 (07/07/24 12:42 PM)NormalYellowFT UA Auto SSComment on above:Interpretive Data: Microscopic readings are only performed on those samples that meet specific criteria set forth by [facility].Epithelial cells.squamous Auto (Urine sed) [#/Area]>10 graded/HPFInvalid Interpretation CodeFT UA Auto SSGlucose Ql (U)NegativeNormalNegativemg/dLFTMC UA Auto SS Hemoglobin Auto test strip (U) [Mass/Vol]NegativeNormalNegativemg/dLFT UA Auto SSKetones Auto test strip Ql (U)NegativeNormalNegativemg/dLFTMC UA Auto SS Leukocyte esterase Auto test strip Ql (U)500 Pearl/uL Pearl/uLInvalid Interpretation CodeNegativeLeu/uLFT UA Auto SSMucus Auto Ql (U)Trace graded/LPFNormal Negativegraded/LPFFTMC UA Auto SSNitrite Auto test strip Ql (U)NegativeNormal Negativemg/dLFTMC UA Auto SSpH (U)7.0 *NA* (07/07/24 12:42 PM)Invalid Interpretation Code5.0 - 9.0FT UA Auto SSProtein Ql (U)NegativeNormalNegativemg/dLFTMC UA Auto SSRBC Ql (U)0-3 graded/HPFNormal 0-3graded/HPFFTMC UA Auto SSSpecific gravity (U) [Rel density]1.013 *NA* (07/07/24 12:42 PM)Invalid Interpretation Code1.005 - 1.030FT UA Auto SS Urobilinogen (U) [Mass/Vol]NegativeNormalNegativemg/dLFTMC UA Auto SSWBC Auto (Urine sed) [#/Area]6-15 graded/HPFInvalid Interpretation Code0-5graded/HPFINTEGRIS [facility] [place] UA Auto SSURINALYSISOrdered By: Tri Krueger on 71-16-8675ER Spec DescClean Catch (07/07/24 12:42 PM)NormalINTEGRIS [facility] [place] UA Auto SSGroup B Strep by PCRon 43-64-4107Nirnt B Strep colonization by PCRPositiveAbnormalNegativeDayton Children'S Hospital Comment on above:Performed By: #### [id number] #### [facility] [address] [place], [place] [address]SYOHVWOHUEscpldk By: SYSTEM SYSTEM on 06-10-0207Frucerb [Mass/Vol]126 mg/kVCdxqyr64 - 140 mg/dLRemisol ChemGlucose [Mass/Vol]137 mg/dL Hcfere53 - 155 mg/dLRemisol ChemGlucose [Mass/Vol]160 mg/vLDdumsf87 - 180 mg/dL Remisol ChemGlucose [Mass/Vol]90 mg/kVHgwxvu36 - 99 mg/dLRemisol ChemCHEMISTRY Ordered By: Lab ROPUser on 87-37-3005Vwdllay [Mass/Vol]88 mg/wSVperwa94 - 99 mg/dLINTEGRIS [facility]ITY [facility] [place] POC SubsectionPOC Device [id number] 1Invalid Interpretation Code [facility] [place] POC SubsectionPOC User [id number] 1Invalid Interpretation CodeINTEGRIS [facility]ITY [facility] [place] POC SubsectionPOC UsernamKENNA Arevalonvalid Interpretation CodeINTEGRIS [facility]ITY [facility] [place] POC SubsectionCapillary Glucose POCon 76-98-8971Ixareec [Mass/Vol]88 mg/dLNormal 55-99Day[facility]'S HospitalComment on above:Performed By: #### [id number] #### [facility] [address] [place], [place] [address]Gtd 1 Hron 86-01-3348Wnzyczv [Mass/Vol]160 mg/bLEbhald27-488 [facility]S HospitalComment on above:Performed By: #### [id number] #### [facility] [address] [place], [place] [address]Oep 2 Hron 31-70-9094Cavjsus [Mass/Vol]137 mg/fUSyapal27-784 [facility]S HospitalComment on above:Performed By: #### [id number] #### [facility] [address] [place] [address] 188[address]Xda 3 Hron 46-93-5248Adzitsl [Mass/Vol]126 mg/yDErsfai13-183 [facility]S HospitalComment on above:Performed By: #### [id number] #### [facility] [address] [place] [address]Oak Fastingon 90-17-8349Qbtunpg [Mass/Vol]90 mg/iSOzqeym84-66 [facility]S HospitalComment on above:Performed By: #### [id number] #### [facility] [address] [place] [address]46[address]Y Urineon 48-39-6560Wuwatoiv identified Cx Nom (U)Microbiology PROCEDURE: Urine Culture [R1] SOURCE: U CleanCatch BODY SITE: COLLECTED DATE/TIME: 04/17/2024 10:32 EDT RECEIVED DATE/TIME: 04/17/2024 13:57 EDT START DATE/TIME: 04/17/2024 13:57 EDT FREE TEXT SOURCE: Rhea LAZARO, You Wilkerson MD, You Greco FINAL REPORTS Final Report [] Verified Date/Time: 04/19/2024 09:06 EDT 25,000 cfu/ml Mixed skin contaminants Performing Locations R1: This test was performed at: [facility], [address] [place] [address], [address]- , , KbxhebAjtidlRegency Hospital Cleveland EastComment on above:Performed By: #### [id number] #### [facility] [address] [place] [address] 139[address]Kdc Bs Agon 50-42-3153QWM surface Ag IA QlNegativeInvalid Interpretation CodeNegativeDayton Children'S HospitalComment on above:Result Comment: Performed at: [facility] [place] [id number] PhD Jyoti Collinsformed By: #### [id number] #### [facility] [address] [place] [address]VUP with Conf Rfxon 38-87-7152Uieosa Ab RPR Ql (S)Non-Reactive Invalid Interpretation CodeNon ReactiveDayton Children'S HospitalComment on above:Result Comment: Performed at: [facility] [address] [place] [id number] PhD Jyoti HurstPerformed By: #### [id number] #### [facility] [address] [place] [address]Gvvptgb IgGon 49-75-6631Efcqwif virus IgG Qn (S)6.21 [IU]/mL Invalid Interpretation CodeImmune >0.99Day[facility]'S HospitalComment on above:Result Comment: Non-immune <0.90 Equivocal 0.90 - 0.99 Immune >0.99 Performed at: [address] [id number] PhD Jyoti HurstMayo Clinic Arizona ([place])formed By: #### [id number] #### [facility] [address] [place] [address]WVN/Rhon 55-40-1256VWA/RhPositiveInvalid Interpretation Code [facility] HospitalComment on above:Performed By: #### [id number] #### [facility] [address] [place] [address] 47[address]NZEHlo 91-71-4700JXQK Gel InterpNegativeNormalDayton Children'S HospitalComment on above:Performed By: #### [id number] #### [facility] [address] [place] [address]TWKQC BANKOrdered By: Janessa Luke on 21-90-1499IYZ/Rh InterpPositiveInvalid Interpretation CodeINTEGRIS [facility] [place] BB SubsectionABSC Gel Interp Negative (04/17/24 11:38 AM)NormalINTEGRIS [facility]ITY [facility] [place] BB SubsectionCBC w/Indiceson 69-90-5097Nrtminmsxhx distribution width (RBC) [Ratio]14.0 %Eonnpk67.9-14.2FNorwalk Memorial Hospital Comment on above:Performed By: #### [id number] #### [facility] [address] [place] [address] 506[address]Itmjofggsv (Bld) [Volume fraction]30.7 %Low34.0-46.0[facility]'S HospitalComment on above:Performed By: #### [id number] #### [facility] [address] [place] [address]Aufhikljxn (Bld) [Mass/Vol]10.3 g/dLLow12.0-16.0[facility]'S HospitalComment on above:Performed By: #### [id number] #### [facility] [address] [place] [address] 60485VHF (RBC) [Entitic mass]26.4 pgLow27.0-34.0[facility]'S HospitalComment on above:Performed By: #### [id number] #### [facility] [address] [place] [address] 76[address]KAOP (RBC) [Mass/Vol]33.6 g/nYVvauwn11.4-36.0[facility]'S HospitalComment on above:Performed By: #### [id number] #### [facility] [address] [place] [address] 05492IHO (RBC) [Entitic vol]78.7 fLLow80.0-100.0[facility]'S HospitalComment on above:Performed By: #### [id number] #### [facility] [address] [place], [place] [address]Tnnjirjt199.0 E9/NDryhul914.0-500.0[facility] Comment on above:Performed By: #### [id number] #### [facility] [address] [place], [place] [address]Odeymqbg mean volume (Bld) [Entitic vol]8.3 fLNormal6.4-10.8 [facility]S HospitalComment on above:Performed By: #### [id number] #### [facility] [address] [place], [place] [address]OWM (Bld) [#/Vol]3.9 E12/LLow4.3-5.9[facility] Comment on above:Performed By: #### [id number] #### [facility] [address] [place], [place] [address]UTS size Nom (Bld)NORMALInvalid Interpretation CodeDayton Children'S HospitalComment on above:Performed By: #### [id number] #### [facility] [address] [place], [place] [address]PLF corrected for nucl RBC Auto (Bld) [#/Vol]8.1 E9/LNormal 4.0-11.0[facility]'S HospitalComment on above:Performed By: #### [id number] #### [facility] [address] [place], [place] [address]ITLOHYOULPmpmeyg By: SYSTEM SYSTEM on 56-54-5010Sctlkoh [Mass/Vol]153 mg/lMSfkb65 - 140 mg/dLRemisol ChemGest Scr Glu 1 Hron 04-17-2024 Glucose [Mass/Vol]153 mg/hCTshm47-043JxchbmDayton Children'S HospitalComment on above:Performed By: #### [id number] #### [facility] [address] [place], [place] [address]NHXXKVSDKFIclzihy By: SYSTEM SYSTEM on 52-19-9386Toovcsghsam distribution width (RBC) [Ratio]14.0 %Qsamtu81.9 - 14.2 %Remisol HemeHematocrit (Bld) [Volume fraction]30.7 %Low34.0 - 46.0 %Remisol HemeHemoglobin (Bld) [Mass/Vol]10.3 g/dLLow12.0 - 16.0 gm/dLRemisol HemeMCH (RBC) [Entitic mass]26.4 pgLow27.0 - 34.0 pgRemisol HemeMCHC (RBC) [Mass/Vol]33.6 g/kRZfhvmn23.4 - 36.0 gm/dLRemisol HemeMCV (RBC) [Entitic vol]78.7 fLLow80.0 - 100.0 fLRemisol Heme Usfdbile219.0 E9/HEkwnvu289.0 - 500.0 E9/LRemisol HemePlatelet mean volume (Bld) [Entitic vol]8.3 fLNormal6.4 - 10.8 fLRemisol HemeRBC (Bld) [#/Vol]3.9 E12/LLow 4.3 - 5.9 E12/LRemisol HemeRBC size Nom (Bld)NORMAL *NA* (04/17/24 11:38 AM)Invalid Interpretation CodeRemisol HemeWBC corrected for nucl RBC Auto (Bld) [#/Vol]8.1 E9/LNormal4.0 - 11.0 E9/LRemisol HemeHep Bs Agon 05-46-3419QWF surface Ag IA QlNegativeInvalid Interpretation CodeNegativeDayton Children'S HospitalComment on above:Result Comment: Performed at: [address] [id number] PhD Jyoti Collinsformed By: #### [id number] #### [facility] [address] [place], [place] [address]DAE with Conf Rfxon 45-38-6621Cnusrj Ab RPR Ql (S)Non-Reactive Invalid Interpretation CodeNon ReactiveDayton Children'S HospitalComment on above:Result Comment: Performed at: [address] [id number] PhD Jyoti Collinsformed By: #### [id number] #### [facility] [address] [place], [place] [address]Vecuecw IgGon 94-07-5181Fiidxrd virus IgG Qn (S)5.71 [IU]/mL Invalid Interpretation CodeImmune >0.99Dayton Children'S HospitalComment on above:Result Comment: Non-immune <0.90 Equivocal 0.90 - 0.99 Immune >0.99 Performed at: [address] [id number] Collinsformed By: #### [id number] #### [facility] [address] [place], [place] [address]LPA/Rhon 63-66-0200THC/RhPositiveInvalid Interpretation Code [facility] Children'S HospitalComment on above:Performed By: #### [id number] #### [facility] [address] [place], [place] [address]UFDIxg 60-84-1203KYSZ Gel InterpNegativeNormalDayton Children'S HospitalComment on above:Performed By: #### [id number] #### [facility] [address] [place], [place] [address]GAEMQ BANKOrdered By: Michelle Fuentes on 34-82-1006HYU/Rh Interp PositiveInvalid Interpretation CodeINTEGRIS COMM[facility] [place] BB SubsectionBLOOD BANKOrdered By: Kaylah Peng on 84-47-3431KAUY Gel InterpNegative (03/23/24 2:21 PM)NormalINTEGRIS COMMUNITY [facility] [place] BB SubsectionCBC w/Indiceson 42-00-0430Ttaytaxkmcm distribution width (RBC) [Ratio]14.5 %High10.9-14.2[facility] Comment on above:Performed By: #### [id number] #### [facility] [address] [place], [place] [address]Jqrigtgiuu (Bld) [Volume fraction]30.8 %Low34.0-46.0Dayton Children'S HospitalComment on above:Performed By: #### [id number] #### [facility] [address] [place], [place] [address]Idmfcmdhdh (Bld) [Mass/Vol]10.5 g/dLLow12.0-16.0Dayton Children'S HospitalComment on above:Performed By: #### [id number] #### [facility] [address] [place], [place] [address]YGH (RBC) [Entitic mass]27.0 gcTdlpjy02.0-34.0Dayton Children'S HospitalComment on above:Performed By: #### [id number] #### [facility] [address] [place], [place] [address]MHGE (RBC) [Mass/Vol]34.1 g/pFGjgksq70.4-36.0Dayton Children'S HospitalComment on above:Performed By: #### [id number] #### [facility] [address] [place] [address]PIK (RBC) [Entitic vol]79.2 fLLow80.0-100.0Dayton Children'S HospitalComment on above:Performed By: #### [id number] #### [facility] [address] [place] [address]Wbzhkfhm040.0 E9/YVkmnpx144.0-500.0[facility] Comment on above:Performed By: #### [id number] #### [facility] [address] [place] [address]Zszufufs mean volume (Bld) [Entitic vol]8.4 fLNormal6.4-10.8 [facility] Children'S HospitalComment on above:Performed By: #### [id number] #### [facility] [address] [place] [address]IQQ (Bld) [#/Vol]3.9 E12/LLow4.3-5.9[facility] Comment on above:Performed By: #### [id number] #### [facility] [address] [place] [address]GMP size Nom (Bld)NORMALInvalid Interpretation CodeDayton Children'S HospitalComment on above:Performed By: #### [id number] #### [facility] [address] [place], [place] [address]OBQ corrected for nucl RBC Auto (Bld) [#/Vol]9.5 E9/LNormal 4.0-11.0Dayton Children'S HospitalComment on above:Performed By: #### [id number] #### [facility] [address] [place] [address]IPPYVMUBVYKzmdavi By: SYSTEM SYSTEM on 17-80-2123Nvmreszugek distribution width (RBC) [Ratio]14.5 %High10.9 - 14.2 %Remisol HemeHematocrit (Bld) [Volume fraction]30.8 %Low34.0 - 46.0 %Remisol HemeHemoglobin (Bld) [Mass/Vol]10.5 g/dLLow12.0 - 16.0 gm/dLRemisol HemeMCH (RBC) [Entitic mass]27.0 xrVpsvfl98.0 - 34.0 pgRemisol HemeMCHC (RBC) [Mass/Vol]34.1 g/lTVynfsf41.4 - 36.0 gm/dLRemisol HemeMCV (RBC) [Entitic vol]79.2 fLLow80.0 - 100.0 fLRemisol LnkiHglswhzy708.0 E9/SFtwbob699.0 - 500.0 E9/LRemisol HemePlatelet mean volume (Bld) [Entitic vol]8.4 fLNormal6.4 - 10.8 fLRemisol HemeRBC (Bld) [#/Vol]3.9 E12/LLow4.3 - 5.9 E12/LRemisol HemeRBC size Nom (Bld)NORMAL *NA* (03/23/24 2:21 PM)Invalid Interpretation CodeRemisol HemeWBC corrected for nucl RBC Auto (Bld) [#/Vol]9.5 E9/LNormal4.0 - 11.0 E9/LRemisol HemeCoding Summary.on 08-41-1387Cvtqps Summary. SKUEQqsz05AJp3vWh+PGhlYWQ+KY5BKBQrG77hdJCbaA9kL4XJOSaQLfsbXGMIIMgCLnHosjPtPK0geZ NjZXJu [file] ZGVyLWNvbGxhc (more content not included)...[facility] Urineon 10-46-6117Ibpgvrzg identified Cx Nom (U)Microbiology PROCEDURE: Urine Culture [R1] SOURCE: U Random BODY SITE: COLLECTED DATE/TIME: 02/16/2024 08:30 EDT RECEIVED DATE/TIME: 02/16/2024 19:10 EDT START DATE/TIME: 02/16/2024 19:10 EDT FREE TEXT SOURCE: Rhea LAZARO, You Wilkerson MD, You Greco FINAL REPORTS Final Report [] Verified Date/Time: 02/18/2024 09:51 EDT 25,000 cfu/ml Mixed skin contaminants Performing Locations R1: This test was performed at: [facility], [address] [place] [address], [address]- , , XkyvmkPjutfnBellevue HospitalComment on above:Performed By: #### [id number] #### [facility] [address] [place] [address]Moofzxtpt Orderon 61-77-3837Vxwbflztg Order [id number]#1.00[facility] HospitalDischarge Instructionson 79-73-8154Eadnkgukk Instructions [id number]#1.00TIFMercy Health Clerm[facility] Hospital Clinical Summaryon 18-85-1484UC Clinical Summary [address] [address] ED Clinical Summary Person Information Name: KASSIE CRAWFORD [facility] Age: 23 Years : 2000 Sex: Female Language: Singaporean PCP: TUAN HAAS DO Marital Status: Single Phone: [phone] Visit Id: Visit Reason: Vomiting - ; [...] 12/04/2023 00:16:47 12/04/2023 00:16:47 12/04/2023 00:16:47 ADDRESS: [address] [facility] [id number] PHYS DOC NOTES: MEDICAL INFORMATION: Prescriptions Given: New Medications [id number], [address], [place] [id number], [phone] metoclopramide (Reglan 10 mg Tab) 1 Tablets By Mouth every 6 hours. Refills: 0. Medications to Continue with No Changes Other Medications ibuprofen (ibuprofen 600 mg Tab) 1 Tablets By Mouth every 6 hours. Refills: 0. multivitamin (Folinic-Plus oral tablet) multivitamin, ( Multivitamins) 1 Tablets By Mouth every day. omeprazole (omeprazole 20 mg Fiona) PATIENT EDUCATION INFORMATION: Instructions: Migraine Headache, Dzvj-ha-Fyjq; Nausea and Vomiting, Adult, Ohxs-ek-Tone Follow up: With: Address: When: TUAN HAAS [address] [place], [place] [id number] [employer] (1Glipho In 3 days 12/06/2023 Comments: You can use the Reglan every 8 hours as needed for nausea or vomiting or headache. Please follow-upwith your primary care doctor next 2 to 3 days for further evaluation and management. Return to theED for any new or worsening symptoms. DIAGNOSIS: Migraine; N&V (nausea and vomiting)[facility] CenterED Note-Physicianon 69-80-4063QE Note-PhysicianBasic Information Time Seen: Melissa Yates DO 12/03/2023 [...] congestion, dizziness or lightheadedness. Denies any abdominal pain,vaginal bleeding. Follows with Dr. Wilkerson. Review of [...] and Complexity of Problems Differential Diagnosis: [] [facility] Data External documents reviewed: [] My EKG interpretation: [] My CT interpretation: [] My X-ray interpretation: [] My Ultrasound interpretation: [] Decision rules/scores evaluated: [] Discussed with: [] Treatment and Disposition ED Course: Patient is a 23-year-old female presenting to the ED for evaluation of headache, nausea,vomiting. Patient is nontoxic and on arrival, no acute distress. No focal deficits noted on examination. Patient states this feels similar to previous migraines. Patient is given Reglan, IV fluids inaddition to Tylenol. On reevaluation patient feels significantly improved. She is to follow- up withher primary care doctor in addition to OB for further evaluation management. Patient is given a prescription for Reglan for treatment of her nausea vomiting in addition to headaches. She is to returnto the ED for any new or worsening [...] q6hr, # 12 tab(s), Refills(s) 0, Pharmacy: [id number], 170, cm, 12/03/23 22:08:00 EDT, Height/Length Dosing, 134.5, kg, 12/03/23 22:08:00 EDT, Weight Dosing Sodium Chloride 0.9% intravenous solution 1,000 mL, 1,000 mL, IV, 983.61 mL/hr, for 30 day(s), Stopdate 01/02/24 22:18:00 EDT, STAT, Start date 12/03/23 22:19:00 EDT, 61 minute(s), Total volume (mL): 1,000, 134.5 kg, 2.52, m2 Medications Administered Given Sodium Chloride 0.9% IV Kim 1000 mL 1,000 mL, 1000 mL, IV GenDil 100 mL + [id number] [F] 1000 mg, IV Piggyback metoclopramide 5 mg/mL Inj, 10 mg, IV Push Disposition Plan Discharge Prescription List Prescriptions Reglan 10 mg Tab, 10 mg= 1 tab(s), Oral, q6hr Follow-up With When Contact Information TUAN HAAS In 3 days 12/06/2023 EDT [address] [id number] Business (1) Additional Instructions: You can use the Reglan every 8 hours as needed for nausea or vomiting or headache. Please follow-up with your primary care doctor next 2 to 3 days for further evaluation and management. Return to the ED for any new or worsening symptoms. Patient Education Migraine Headache, Aqfi-et-Hzhz Nausea and Vomiting, Adult, Hosz-ul-Pqxp Problem List/Past Medical History Ongoing History of Historical Arthritis Yeast Procedure/Surgical History section ( (more content not included)...Bellevue HospitalComment on above:Result Comment: Electronically Signed By: Dokken DO, Kaylinn A\.br\Date and Time Signed: 12/04/23 01:59 EDTED Patient Education Noteon 61-39-5232BP Patient Education NoteGastroenterology Nausea and Vomiting, Adult Nausea is feeling [...] ? Low-calorie sports drinks. ? Eat bland, xzqz-ec-dawibz foods in small amounts as you are able, such as: ? Bananas. ? Applesauce. ? Rice. ? Low-fat (lean) meats. ? [place]. ? Crackers. ? Avoid drinking fluids that have a lot of sugar or caffeine in them. This includes energy drinks, sports drinks, and soda. ? Avoid alcohol. ? Avoid spicy or fatty foods. General instructions ? Take prpc-tpw-hxlucso and prescription medicines only as told by your doctor. ? Drink enough fluid to keep your pee (urine) pale yellow. ? Wash your hands often with soap and water for at least 20 seconds. If you cannot use soap and water, use hand territory sales executive. ? Make sure that everyone in your [...] doctor about eating and drinking. ? Take vlrj-one-ddniiex and prescription medicines only as told by your doctor. ? Contact your doctor if your symptoms get worse or you have new symptoms. ? Keep all follow-up visits. This information is not intended to replace advice given to you by your health care provider. Make sure you discuss any questions you have with your health care provider. Document Revised: 02/22/2022 Document Reviewed: 02/22/2022 [employer] Patient Education ? 2022 [employer] Neurology Migraine Headache A migraine headache [...] Stress. ? Not gettin (more content not included)...[facility] Patient Summaryon 25-51-9861KJ Patient Summary [address] [address] Patient Discharge Instructions Person Information Name: KASSIE CRAWFORD Age: 23 Years Arrival Date: 12/03/2023 21:58:27 Discharge Diagnosis: Migraine; N&V (nausea and vomiting) Primary Care Physician: TUAN HAAS DO Provider Information Primary Provider: Melissa Yates DO Advanced Bark Skinner:None The exam and treatment you received in the Emergency Department were for an urgent problem and are not intended as complete care. It is important that you follow up with a doctor, nurse practitioner,or physician?s assistant to the director for ongoing care. If your symptoms become worse or you do not improve as expected and you are unable to reach your usual health care provider, you should return to the Emergency Department. We are available 24 hours a day. KASSIE CRAWFORD has been given the following list of patient education materials, prescriptions and follow-up instructions: Follow-up Instructions: With: Address: When: TUAN HAAS [address] [place] [address] [facility] (1) In 3 12/06/2023 Comments: You can use the Reglan every 8 hours as needed for nausea or vomiting or headache. Please follow-upwith your primary care doctor next 2 to 3 days for further evaluation and management. Return to theED for any new or worsening symptoms. In the event that this physician does not participate in your insurance network, please consult with your insurance company to find a nearby participating provider. Patient Education Materials: Migraine Headache, Euvo-li-Kjyw; Nausea and Vomiting, Adult, Owrt-jt-Lcxu A MESSAGE TO ALL PATIENTS REGARDING OPIOIDS PRESCRIPTION OPIOIDS: WHAT YOU NEED TO KNOW Prescription opioids can be used to help relieve spvbemyu-jq-gtjgsb pain and are often prescribed following a [...] and have fewer risks and side effects. Optionsmay include: ? Pain relievers such as acetaminophen, [...] unused prescription opioids: Find your community drug take- back program or i.Meter mail-back program, or flush them down the toilet, following guidance from the Food and Drug Administration (www.fda.gov (more content not included)...NormalWVUMedicine Harrison Community HospitalG Quanton 12-03-2023 HCG.beta subunit Ea67386 m[IU]/mLHigh1-3[facility] HospitalComment on above:Result Comment: 'F NON < 1 - 3' ' 0.2 - 1 WEEK = 5 TO 50' ' 1 - 2 WEEKS = 50 - 500' ' 2 - 3 WEEKS = 100 - 5000' ' 3 - 4 WEEKS = 500 - 46345' ' 4 - 5 WEEKS = 1000 - 08647' ' 5 - 6 WEEKS = 62042 - 674802' ' 6 - 8 WEEKS = 50729 - 953726' ' 8 - 12 WEEKS = 92236 - 941601'Performed By: #### [id number] #### [facility] [address] [place], [place] [address]LXBGMMIGLCpbywaj By: SYSTEM SYSTEM on 98-95-6417XNI.beta subunit Ym60802 m[IU]/mLHigh1 - 3 mIU/mLRemisol ChemComment on above:Result Comment: 'F NON < 1 - 3' ' 0.2 - 1 WEEK = 5 TO 50' ' 1 - 2 WEEKS = 50 - 500' ' 2 - 3 WEEKS = 100 - 5000' ' 3 - 4 WEEKS = 500 - 32391' ' 4 - 5 WEEKS = 1000 - 63630' ' 5 - 6 WEEKS = 46795 - 746766' ' 6 - 8 WEEKS = 20091 - 582816' ' 8 - 12 WEEKS = 28188 - 981962'Progesterone Lvl7.09 ng/mLInvalid Interpretation CodeRemisol ChemComment on above:Result Comment: 'F NON FOLLICULAR = 0.10 - 0.60' 'LUTEAL = 3.00 - 17.5' 'MIDLUTEAL = 3.30 - 18.6' 'POST-MENOPAUSE = 0.10 - 0.40' '-FIRST TRIMESTER = 8.30 - 66.5' 'SECOND TRIMESTER = 18.9 - 66.1' 'THIRD TRIMESTER = 35.8 - 312.4' 'MALES = 0.14 - 2.06'Consent for Treatmenton 86-36-3720Wucnwxz for Treatment [id number]#1.00[facility] HospitalConsent for [id number]#1.00TIFMarietta Osteopathic ClinicPhysician Orderon [id number] Order [id number]#1.00[facility] HospitalProgesteroneon 17-02-2380Jzqqyjilcbmt Lvl7.09 ng/mLInvalid Interpretation CodeDayton Children'S HospitalComment on above:Result Comment: 'F NON FOLLICULAR = 0.10 - 0.60' 'LUTEAL = 3.00 - 17.5' 'MIDLUTEAL = 3.30 - 18.6' 'POST-MENOPAUSE = 0.10 - 0.40' '-FIRST TRIMESTER = 8.30 - 66.5' 'SECOND TRIMESTER = 18.9 - 66.1' 'THIRD TRIMESTER = 35.8 - 312.4' 'MALES = 0.14 - 2.06'Performed By: #### [id number] #### [facility] [address] [place] [address]K. diff by PCRon 75-53-5689Oufjzlzcxcf difficile by PCRNegative NormalNegativeDayton Children'S HospitalComment on above:Order Comment: Order added by Discern Expert.Result Comment: This test result should be correlated with clinical presentations and medical history by a healthcare provider to determine its clinical significance.Performed By: #### [id number], [id number] #### [facility] [address] [place] [address]CWzcr PCRon 40-06-5361Zmpok Specimen AcceptableAcceptableNormal [facility]'S HospitalComment on above:Performed By: #### [id number], [id number] #### [facility] [address] [place] [address]Feezd CancelledNo, PCR to followNoRegency Hospital Cleveland EastComment on above:Performed By: #### [id number], [id number] #### [facility] [address] [place] [address]Gztpant for Treatmenton 62-68-3809Qfokasl for Treatment [id number]#1.00TIFOhioHealth Doctors HospitalDischarge Instructionson 16-34-7807Jamuflmej Instructions [id number]#1.00TIFMercy Health [facility] Hospital Clinical Summaryon [id number] Clinical Summary [address] [address] ED Clinical Summary Person Information Name: KASSIE CRAWFORD [place] Age: 23 Years : 2000 Sex: Female Language: Singaporean PCP: TUAN HAAS DO Marital Status: Single Phone: [phone] Visit Id: Visit Reason: Dysuria; Diarrhea; FREQUENT [...] 10/05/2023 10:51:58 10/05/2023 10:51:58 10/05/2023 10:51:58 ADDRESS: [place] [id number] PHYS DOC NOTES: MEDICAL INFORMATION: Prescriptions Given: Medications to Continue with No Changes Other Medications ibuprofen (ibuprofen 600 mg Tab) 1 Tablets By Mouth every 6 hours. Refills: 0. multivitamin (Folinic-Plus oral tablet) multivitamin, ( Multivitamins) 1 Tablets By Mouth every day. omeprazole (omeprazole 20 mg Cap-DR) PATIENT EDUCATION INFORMATION: Instructions: Food Choices to Help Relieve Diarrhea, Adult; Dysuria; Diarrhea, Adult Follow up: With: Address: When: TUAN HAAS [address] [place] [address] Business (1) In 3 days 10/08/2023 Comments: Take Imodium sgrc-ret-ezdougy as instructed. Return to the emergency room if your diarrhea gets worse, blood in diarrhea, fever or any new symptoms. DIAGNOSIS: 1:Diarrhea; 2:DysuriaNormalFisher Tallahassee Medical CenterED Note-Physicianon 26-94-6366WD Note-PhysicianBasic Information Time Seen: Jose Tovar M.D. 10/05/2023 07:47 Chief Complaint started last night with diarrhea and burning with urination History of Present Illness The patient is a 23-year-old female 4 months who presented to the emergency room with diarrhea. The patient states since yesterday she has been having watery diarrhea. She stateshas been having frequent bowel movement. She has been taking Pepto-Bismol. She reports some abdominal cramping on and off. Denies any fever denies any chills. The patient denies any nausea denies anyvomiting. She reports some burning with urination. The [...] and Complexity of Problems Differential Diagnosis: [] [facility] Data External documents reviewed: [] My [...] not appear to be toxic. She does notappear to be dehydrated. We had a long [...] with her diarrhea, fever or any new sym ptoms. Shared decision making: [] Code status: [] Assessment/Plan 1. Diarrhea (R19.7: Diarrhea, unspecified) 2. Dysuria (R30.0: Dysuria) Orders: Clostridium difficile by PCR Clostridium Difficile PCR Enteric Panel by PCR U Beta Hcg Qual UA With Cult Reflex Disposition Plan Patient Discharge Condition Stable Discharge Disposition Discharge home Discharge Prescription List Prescriptions No active prescription medications Follow-up With When Contact Information TUAN HAAS In 3 days 10/08/[address] [address] [facility] (1) Additional Instructions: Take Imodium veai-uzq-wpnyywk as instructed. Return to the emergency room [...] lifetime) Tobacco Use:. Neve (more content not included)...[facility]vue HospitalComment on above:Result Comment: Electronically Signed By: [place], Jose Boothe.avril\Date and Time Signed: 10/05/2409:57 ANDRE Patient Education Noteon 97-00-7627WW Patient Education Note Gastroenterology Food Choices to [...] healthy bacteria in your stomach and intestines (gastrointestinaltract or GI tract). This may help digestion and stop diarrhea. ? If you have lactose intolerance, avoid dairy products. These may make your diarrhea worse. ? Take medicine to help stop diarrhea only as told by your health care provider. Replacing nutrients ? Eat bland, sbtw-jp-nxklvg foods in small amounts as you are [...] the right foods and drinks to relieve diarrhea,to replace lost fluids and nutrients, and to [...] provider. Document Revised: 11/08/2022 Document Reviewed: 10/03/2020 [employer] Patient Education ? 2022 [employer]. Infectious Disease Diarrhea, Adult Diarrhea is frequent [...] oral rehydration solution (ORS). This is an nnvn-gmw-kecelpz medicine that helps return your body to [...] sports drinks, and soda. ? Eat bland, xncl-ds-atwiwg foods in small amounts as you are able. These foods include bananas, applesauce, rice, lean meats, toast, and crackers. ? Avoid alcohol. ? Avoid spicy or fatty foods. Medicines ? Take glws-jom-mhdsmcq and prescription medicines only as told by your health care provider. ? If you were prescribed an antibiotic medicine, take it as told by your health care provider. Do not stop using the antibiotic even if you start to feel better. General instructions ? Wash your hands often using soap and water. If soap and water are not available, use a hand territory sales executive. Others in the household sh (more content not included)...[facility] Patient Summaryon [id number] Patient Summary [address] [address] Patient Discharge Instructions Person Information Name: KASSIE CRAWFORD Age: 23 Years Arrival Date: 10/05/2023 07:44:13 Discharge Diagnosis: 1:Diarrhea; 2:Dysuria Primary Care Physician: TUAN HAAS DO Provider Information Primary Provider: Jose Tovar M.D. Advanced Bark Skinner:None The exam and treatment you received in the Emergency Department were for an urgent problem and are not intended as complete care. It is important that you follow up with a doctor, nurse practitioner,or physician?s assistant to the director for ongoing care. If your symptoms become worse or you do not improve as expected and you are unable to reach your usual health care provider, you should return to the Emergency Department. We are available 24 hours a day. KASSIE CRAWFORD has been given the following list of patient education materials, prescriptions and follow-up instructions: Follow-up Instructions: With: Address: When: TUAN HAAS [address] [place] [address] Business (1) In 3 days 10/08/2023 Comments: Take Imodium mjkx-crg-kgohrvg as instructed. Return to the emergency room [...] opioids can be used to help relieve zpyjtdqq-gk-nojwke pain and are often prescribed following a [...] and have fewer risks and side effects. Optionsmay include: ? Pain relievers such as acetaminophen, [...] unused prescription opioids: Find your community drug take- back program or yourpharmacy mail-back program, or flush them down the toilet, following guidance from the Food and Drug Administration (www.fda.gov/Drugs/ResourcesForYou). ? Visit www.cdc.gov/drugoverdose to learn about the risks of opioids abuse an (more content not included)...[facility] HospitalEnteric Panel by PCRon 10-05-2023. coli+jejuni+upsaliensis DNA SAMIR+non-probe Ql (Stl)Not detectedNoRegency Hospital Cleveland EastComment on above:Result Comment: Testing was performed utilizing reverse plug assembler (RT), polymerase chain reaction (PCR), and array hybridization to detect specific gastrointestinal microbial nucleic acid gene sequences associated with the following pathogenic bacteria and viruses:Campylobacter Group (composed of C. coli, C. jejuni, and C. radha), Salmonella species, Shigella species (including S. dysenteriae,S. boydii, S. sonnei and S. flexneri), Vibrio Group (composed of V. cholera and V. parahaemolyticus), Yersinia enterocolitica, Norovirus GI/GII, and Rotavirus A. In addition, EPdetects Shiga toxin 1 gene and Shiga toxin 2 gene virulence markers. Shiga toxin producing E. coli (STEC) typically harborone or both genes that encode for Shiga toxins 1 and 2. Campylobacter group, Salmonella species, Shigella species, Vibrio group, Rotavirus A, Shiga Toxin 1, Shiga Toxin 2, Norovirus GI/GII, and Yersinia enterocolitica were tested by Verigene nulcleic acidtest.Performed By: #### [id number], [id number] #### [facility] [address] [place] [address] 040[address]Q. coli stx1+stx2 genes SAMIR+non-probe Ql (Stl)NegativeNormal [facility]S HospitalComment on above:Performed By: #### [id number], [id number] #### [facility] [address] [place] [address]12[address]Vetumqe Panel Intrl QCPassNoRegency Hospital Cleveland East Comment on above:Result Comment: Testing was performed utilizing reverse plug assembler (RT), polymerase chain reaction (PCR), and array hybridization to detect specific gastrointestinal microbial nucleic acid gene sequences associated with the following pathogenic bacteria and viruses:Campylobacter Group (composed of C. coli, C. jejuni, and C. radha), Salmonella species, Shigella species (including S. dysenteriae,S. boydii, S. sonnei and S. flexneri), Vibrio Group (composed of V. cholera and V. parahaemolyticus), Yersinia enterocolitica, Norovirus GI/GII, and Rotavirus A. In addition, EPdetects Shiga toxin 1 gene and Shiga toxin 2 gene virulence markers. Shiga toxin producing E. coli (STEC) typically harborone or both genes that encode for Shiga toxins 1 and 2.Performed By: #### [id number], [id number] #### [facility] [address] [place] [address] 117[address]Pdnsjfgfa genogroup I+II RNA SAMIR+non-probe Ql (Stl)Not detected [facility] HospitalComment on above:Performed By: #### [id number], [id number] #### [facility] [address] [place] [address] 41365Cyldhflsb A RNA SAMIR+non-probe Ql (Stl)Not detectedNoRegency Hospital Cleveland EastComment on above:Performed By: #### [id number], [id number] #### [facility] [address] [place] [address] 39646I. enterica+bongori DNA SAMIR+non-probe Ql (Stl)Not detected [facility] HospitalComment on above:Result Comment: This test result should be correlated with clinical presentations and medical history by a healthcare provider to determine its clinical significance.Performed By: #### [id number], [id number] #### [facility] [address] [place] [address] 09084Xesyibmd species+EIEC invasion plasmid antigen H ipaH gene SAMIR+non-probe Ql (Stl)Not detectedNoRegency Hospital Cleveland EastComment on above:Performed By: #### [id number], [id number] #### [facility] [address] [place] [address] 99313Q. cholerae+parahaemolyticus+vulnificus DNA SAMIR+non-probe Ql (Stl)Not detectedBellevue HospitalComment on above:Performed By: #### [id number], [id number] #### [facility] [address] [place], [place] [address]X. enterocolitica DNA SAMIR+non-probe Ql (Stl)Not detectedNormal [facility]S HospitalComment on above:Performed By: #### [id number], [id number] #### [facility] [address] [place], [place] [address]VJJLVRMFUgqpzoi By: Starr Gibbons on 48-83-9014TFT.beta subunit (U) [Moles/Vol]NegativeNormChildren's Hospital for Rehabilitation Man SeroU BetaHcg Qualon 69-94-3801KYI.beta subunit (U) [Moles/Vol]NegativeNormalDayton Children'S HospitalComment on above:Performed By: #### [id number], [id number] #### [facility] [address] [place], [place] [address]ML With Cult Reflexon 77-03-6315Omlkoscn LM Ql (Urine sed)1+ /HPFAbnormalRegional Medical CenterceDayton Children'S HospitalComment on above:Performed By: #### [id number], [id number] #### [facility] [address] [place] [address] 35474Lfboohbnq Ql (U)NegativeNormalNegativeDayton Children'S HospitalComment on above:Performed By: #### [id number], [id number] #### [facility] [address] [place], [place] [address]Rdrexxn (U)CLEARNormalClearDayton Children'S HospitalComment on above:Performed By: #### [id number], [id number] #### [facility] [address] [place], [place] [address]Rhrnr (U)YELLOWNormalYellowDayton Children'S HospitalComment on above:Performed By: #### [id number], [id number] #### [facility] [address] [place], [place] [address]Auxqdrswqz cells.squamous LM.HPF (Urine sed) [#/Area]5-8Normal 0-2FNorwalk Memorial HospitalComment on above:Performed By: #### [id number], [id number] #### [facility] [address] [place], [place] [address]Htvoqud Test strip (U) [Mass/Vol]NegativeNormalNegativeDayton Children'S HospitalComment on above:Performed By: #### 07764444, [id number] #### [facility] [address] [place], [place] [address]Xognkvpcsj Ql (U)TRACEAbnormalNegativeDayton Children'S HospitalComment on above:Performed By: #### 81452737, 79601086 #### [facility] [address] [place], [place] [address]Oypbzzp (U) [Mass/Vol]NegativeNormalNegHolzer HospitalComment on above:Performed By: #### [id number], [id number] #### [facility] [address] [place], [place] [address]Hhxryjd.plasma/[place].RBC (Bld) [Mass ratio]2-33Amkuak7-6 [facility] HospitalComment on above:Performed By: #### 97792166, 04827030 #### [facility] [address] [place], [place] [address]Hixvd Ql (Urine sed)1+NormalDayton Children'S HospitalComment on above:Performed By: #### [id number], 96835355 #### [facility] [address] [place], [place] [address]Twwugvg Ql (U)NegativeNormalNegHolzer Hospital Comment on above:Performed By: #### 69193245, 01352276 #### [facility] [address] [place], [place] [address]mT (U)6.0 [pH]Invalid Interpretation Code5.0-9.0[facility]'S HospitalComment on above:Performed By: #### [id number], [id number] #### [facility] [address] [place] [address]Oghsbba (U) [Mass/Vol]TRACEAbnormalNegativeDayton Children'S HospitalComment on above:Performed By: #### 07255573, 84346704 #### [facility] [address] [place] [address] 389[address]Fyrtqwyk gravity (U) [Rel density]>=1.030Invalid Interpretation Code1.005-1.030[facility]'S HospitalComment on above:Performed By: #### [id number], [id number] #### [facility] [address] [place] [address]Ynwc of Urine collection methodClean CatchNoRegency Hospital Cleveland EastComment on above:Performed By: #### 71306944, [id number] #### [facility] [address] [place] [address] 401[address]Zgesckjhvxer Qn (U)0.2 {Enedelia'U}/dLNormal0.0-1.0[facility]S HospitalComment on above:Performed By: #### 86577045, 69035095 #### [facility] [address] [place] [address]RST Auto Ql (U)NegativeNormalNegativeDayton Children'S HospitalComment on above:Performed By: #### 63390965, 91227852 #### [facility] [address] [place] [address]EQZ LM.HPF (Urine sed) [#/Area]7-4Jcvwsc0-6Qauwus [facility] Hopkins HospitalComment on above:Performed By: #### 34260591, 39468936 #### [facility] [address] [place] [address]WTGLFEWIAJCgsmdud By: Starr Gibbons on 07-15-5762Sypmzltt LM Ql (Urine sed)1+ /HPFInvalid Interpretation CodeTrace/HPFFTMC UA Auto SSBilirubin Ql (U)Negative (10/05/23 9:19 AM)NormalNegativeINTEGRIS [facility] [place] UA Auto SSClarity (U)Clear (10/05/23 9:19 AM)NormalClearFMERCY HOSPITAL ADA – [place] UA Auto SSColor (U)Yellow (10/05/23 9:19 AM)NormalYellowINTEGRIS [facility] [place] UA Auto SSEpithelial cells.squamous LM.HPF (Urine sed) [#/Area]5-8 /HPFNormal0-2/HPFFT UA Auto SSGlucose Test strip (U) [Mass/Vol]Negative (10/05/23 9:19 AM)NormalNegativeINTEGRIS [facility] [place] UA Auto SSHemoglobin Ql (U)Trace *ABN* (10/05/23 9:19 AM)Invalid Interpretation CodeNegativeINTEGRIS [facility] [place] UA Auto SSKetones (U) [Mass/Vol]Negative (10/05/23 9:19 AM)NormalNegativeINTEGRIS [facility] [place] UA Auto SSLithium.plasma/Woodlands.RBC (Bld) [Mass ratio]4-20 /HPFNormal0-3/HPFINTEGRIS [facility] [place] UA Auto SSMucus Ql (Urine sed)1+ (10/05/23 9:19 AM)NormalINTEGRIS [facility] [place] UA Auto SSNitrite Ql (U)Negative (10/05/23 9:19 AM)NormalNegativeINTEGRIS [facility] [place] UA Auto SSpH (U)6.0 *NA* (10/05/23 9:19 AM)Invalid Interpretation Code5.0 - 9.0[facility] [place] UA Auto SSProtein (U) [Mass/Vol]Trace *ABN* (10/05/23 9:19 AM)Invalid Interpretation CodeNegativeINTEGRIS [facility] [place] UA Auto SSSpecific gravity (U) [Rel density]>=1.030 *NA* (10/05/23 9:19 AM)Invalid Interpretation Code1.005 - 1.030[facility] [place] UA Auto SSUA Spec DescClean Catch (10/05/23 9:19 AM)NormalINTEGRIS [facility]ITY [facility] [place] UA Auto SSUrobilinogen Qn (U)0.0146500 {Enedelia'U}/dL Normal0.0 - 1.0 EU/dLINTEGRIS [facility]ITY [facility] [place] UA Auto SSWBC Auto Ql (U)Negative (10/05/23 9:19 AM)NormalNegativeINTEGRIS [facility] [place] UA Auto SSWBC LM.HPF (Urine sed) [#/Area]0-5 /HPFNormal0-5/HPFINTEGRIS [facility] [place] UA Auto SSPAP 150480wv 49-13-5472Thibhmzu report Cyto stain Doc (Cvx/Vag)NoteInvalid Interpretation [facility] Comment on above:Result Comment: TESTS RESULT FLAG UNITS REF RANGE LAB Clinician Provided Cytology Information Source.............Cervix No. of containers..01 ThinPrep Vial DIAGNOSIS: 01 NEGATIVE FOR INTRAEPITHELIAL LESION OR MALIGNANCY. Specimen adequacy: 01 Satisfactory for evaluation. Endocervical and/or squamous metaplastic cells (endocervical component) are present. Performed by: 01 Patricia Beauchamp, Cheese Maker (ASCP) . 01 Note: Note 01 The Pap [...] High,A-Abnormal,AA-Critical Abnormal Performed at: 01 [facility] [address] [address] aMyelin Zapien MD, Performed at: [facility] [address] [facility] [address] [place] [id number] MD Rupali DickPerformed By: #### [id number] ####[facility] Qbpiealfpz[address] [id number] Assessmenton 35-28-6037Ssrekye [id number]#1.00TIFF [facility]vue HospitalPAP [id number] 75-46-6966Oyuwgdyedo Technique BRUSH-SPATULABellevue HospitalComment on above:Performed By: #### [id number] ####[facility] Frepgzpwvo[address] [id number] Body SiteCERVIXBellevue HospitalComment on above:Performed By: #### [id number] ####[facility] It[address] [id number] Orderon 07-07-2023 Physician [id number]#1.00[facility] HospitalInsurance Correspondence Officeon 53-66-5699Npjbxptau Correspondence [id number]#1.00TIFFAshtabula County Medical CenterInsurance Correspondence Office [id number]#1.00[facility] HospitalInsurance Correspondence Officeon 85-48-6499Raaxgpkht Correspondence [id number]#1.00[facility] HospitalDelivery Summaryon 32-88-3256Vkuqfqrn SummaryDATE OF DELIVERY: 05/26/2023 The patient is a [...] delivering an 8 pound 7 ounce female infant with Apgars of eight and nine. Nuchal cord was reduced x1. Placenta delivered spontaneously intact. Uterus contracted down well. No repair was necessary. The internal examination revealed an intact previous uterine scar. The patient haddone well with the exception of a wet tap on the epidural and measures were taken to try to mitigate symptomatology post-delivery. Anesthesia was aware. Nakul Swartz Dictated: 05/29/2023 [id number] Transcribed: 05/29/2023B[facility]vue HospitalComment on above:Result Comment: Electronically Signed By: Rhea LAZARO, You Greco\.br\Date and Time Signed: 05/30/23 09:05 EDTGeneral Message Officeon 02-74-0872Yowsfda Message Office--- --- --- --- --- --- --- --- --- From: María, DirectInbox To: KASSIE CRAWFORD Sent: 05/30/23 02:30:49 AM EDT Subject: Discharge Summary Ready to View A summary regarding your recent visit is available in the Documents section of your health record.[facility] HospitalInsurance Correspondence Officeon 25-42-8548Lvplhjmkl Correspondence Office [id number]#1.00CD:127RenettaRegency Hospital Cleveland EastDischarge Instructionson 25-17-6912Lkzvynvfm Instructions [id number]#1.00CD:127RenettaRegency Hospital Cleveland EastInpatient Clinical Summaryon 95-28-1688Oukzmuxdi Clinical Summary [address] [address] Clinical Summary Person Information Name: KASSIE CRAWFORD [place] Age: 23 Years : 2000 Sex: Female PCP: TUAN HAAS DO Marital Status: Single Phone: [phone] Race: White Ethnicity: Non- or Language: Singaporean Visit Id: Visit Reason: Speciality: Acuity: 3 PP Enc Type: Inpatient Med Service: Obstetrics Arrival: 05/26/2023 06:15:36 Discharge: 05/29/2023 09:55:00 Dispo Type: Home (Routine DC) Address: [address] [place] [id number] Provider Notes: Diagnosis: History of Problems Active [...] mg Jaren-) Care Team Members: Attending Physician: You Wilkerson MD Consulting Physician: Referring Physician: Follow up: With: Address: When: Dr. Wilkerson [phone] Within 6 weeks Comments: Call for any problems. Patient Education Information:[facility] HospitalInpatient Patient Summaryon 22-07-4862Hnzfyaysg Patient Summary [place] [address] Patient Discharge Instructions PERSON INFORMATION Name: KASSIE [...] Follow up: With: Address: When: Dr. Wilkerson [phone] Within 6 weeks Comments: Call for any problems. In the event that this physician does not participate in your insurance network, please consult with your insurance company to find a nearby participating provider. Comment: IYVETTE ABAGAIL M, have received the attached patient education materials/instructions and have verbalized understanding. Patient Signature Date Clinican/Nurse Signature Date MEDICATION LIST New Medications [id number], [address] [place], [place] [id number], [phone] ibuprofen (ibuprofen 600 mg Tab) 1 Tablets By Mouth every 6 hours. Refills: 0. Last Dose: Next Dose: Medications to Continue with No Changes Other Medications multivitamin (Folinic-Plus oral tablet) Last Dose: Next Dose: multivitamin, ( Multivitamins) 1 Tablets By Mouth every day. Last Dose: Next Dose: omeprazole (omeprazole 20 mg Cap-DR) Last Dose: Next Dose: Pharmacy Information: [facility] PATIENT EDUCATION INFORMATION Instructions: Medication Leaflets: [...] to serve you. [facility] HospitalProgress Note-Physicianon 65-88-0242Nbzgsysx Note-Physician Patient: KASSIE CRAWFORD Age: 23 years Sex: Female : 2000 Associated Diagnoses: None Author: Rhea LAZARO, You Greco Chief Complaint patient without major complaints Physical [...] pt has minimal REN this am will dischargeBellevue HospitalComment on above:Result Comment: Electronically Signed By: Rhea LAZARO, You Alatorre\Date and Time Signed: 05/29/23 07:30 EDTConsent for Treatmenton 44-17-1781Vtqyhqt for [id number]#1.00CD:127B[facility] HospitalInsurance Correspondence Officeon 88-76-0281Yazqfomux Correspondence [id number]#1.00CD:127[facility] Centerjuan jose [facility] HospitalProgress Note-Physicianon 77-78-9366Dthyypkmb Report Patient: KASSIE CRAWFORD Age: 23 years [...] The epidural space was encountered as demonstrated bya loss of resistance. A local company intermodal truck driver then james 20cc of the patient's blood with sterile technique from the patient's right antecubital region. The blood thus drawn was passed sterilely to me and I subsequently injected 13cc of the blood into the epidural space, at which time the patient reported a sensation of pressurein the low back. The needle was withdrawn and a bandage was placed over the operative site. The patient was encouraged to return to the supine position and received IV fluid. The patient tolerated the procedure well.. Corrected note type to operative reportNoRegency Hospital Cleveland EastComment on above:Result Comment: Electronically Signed By: Pacheco Min Jr., DO\.br\Date and Time Signed: 05/28/23 09:10 EDTProgress Note-PhysicianPatient: KASSIE CRAWFORD Age: 23 years Sex: Female [...] The epidural space was encountered as demonstrated bya loss of resistance. A local company intermodal truck driver then james 20cc of the patient's blood with sterile technique from the patient's right antecubital region. The blood thus drawn was passed sterilely to ga and I subsequently injected 13cc of the blood into the epidural space, at which time the patient reported a sensation of pressurein the low back. The needle was withdrawn and a bandage was placed over the operative site. The patient was encouraged to return to the supine position and received IV fluid. The patient tolerated the procedure well..[facility] Comment on above:Result Comment: Electronically Signed By: Pacheco Min Jr., DO\.br\Date and Time Signed: 05/28/23 09:08 EDTProgress Note-PhysicianPatient: KASSIE CRAWFORD Age: 23 years Sex: Female [...] Plan Transfer/Discharge: Stable for discharge from anesthetic standpoint..[facility] CenterComment on above:Result Comment: Electronically Signed By: Pacheco Min Jr., DO\.br\Date and Time Signed: 05/28/23 07:18 EDT CBC w/Indiceson 92-16-1160Xnldsrkyrgf distribution width (RBC) [Ratio]15.0 %High 10.9-14.2FNorwalk Memorial HospitalComment on above:Performed By: #### [id number] #### [facility] [address] [place], [place] [address]Wbzahlhypy (Bld) [Volume fraction]27.5 %Low34.0-46.0[facility]'S HospitalComment on above:Performed By: #### [id number] #### [facility] [address] [place], [place] [address]Zfaislvxdc (Bld) [Mass/Vol]9.3 g/dLLow12.0-16.0[facility]'S HospitalComment on above:Performed By: #### [id number] #### [facility] [address] [place] [address] 23234TXO (RBC) [Entitic mass]25.0 pgLow27.0-34.0[facility]'S HospitalComment on above:Performed By: #### [id number] #### [facility] [address] [place] [address]CPBK (RBC) [Mass/Vol]33.7 g/eEQmkoiv79.4-36.0[facility]'S HospitalComment on above:Performed By: #### [id number] #### [facility] [address] [place] [address] 885[address]WIN (RBC) [Entitic vol]74.2 fLLow80.0-100.0[facility]'S HospitalComment on above:Performed By: #### [id number] #### [facility] [address] [place] [address] 688[address]Zwranqfj mean volume (Bld) [Entitic vol]8.8 fLNormal6.4-10.8 [facility] HospitalComment on above:Performed By: #### [id number] #### [facility] [address] [place] [address]Csfplyrvp (Bld) [#/Vol]213.0 E9/BLfyenx647.0-500.0[facility]'S HospitalComment on above:Performed By: #### [id number] #### [facility] [address] [place] [address] 796[address]WBJ (Bld) [#/Vol]3.7 E12/LLow4.3-5.9[facility] Comment on above:Performed By: #### [id number] #### [facility] [address] [place] [address] 11[address]DRJ corrected for nucl RBC Auto (Bld) [#/Vol]9.0 E9/LNormal 4.0-11.0[facility]'S HospitalComment on above:Performed By: #### [id number] #### [facility] [address] [place], [place] [address]KXQOSYRFMXKmhiozf By: Bridgett Steven on 55-08-3387Urwphxbhimi distribution width (RBC) [Ratio]15.0 %High10.9 - 14.2 %[facility] HemeAutoSSHematocrit (Bld) [Volume fraction]27.5 %Low34.0 - 46.0 %[facility] HemeAutoSSHemoglobin (Bld) [Mass/Vol]9.3 g/dLLow12.0 - 16.0 gm/dLFTMC HemeAutoSSMCH (RBC) [Entitic mass] 25.0 pgLow27.0 - 34.0 pgFTMC HemeAutoSSMCHC (RBC) [Mass/Vol]33.7 g/zAFswukq86.4 - 36.0 gm/dLFTMC HemeAutoSSMCV (RBC) [Entitic vol]74.2 fLLow80.0 - 100.0 fLFTMC HemeAutoSSPlatelet mean volume (Bld) [Entitic vol]8.8 fLNormal6.4 - 10.8 fLFTMC HemeAutoSSPlatelets (Bld) [#/Vol]213.0 E9/BLewtxp492.0 - 500.0 E9/LFTMC HemeAutoSSRBC (Bld) [#/Vol]3.7 E12/LLow4.3 - 5.9 E12/LFTMC HemeAutoSSWBC corrected for nucl RBC Auto (Bld) [#/Vol]9.0 E9/LNormal4.0 - 11.0 E9/LFTMC HemeAutoSSProgress Note-Physicianon 72-43-5749Jmfrbtbs Note-PhysicianPatient: KASSIE CRAWFORD Age: 23 years Sex: Female : 2000 Associated Diagnoses: None Author: Rhea LAZARO, You Greco Chief Complaint patient without major complaints Physical Examination VS/Measurements Breast: No mass, No tenderness. Exam: Uterus: Symmetric, firm and below the umbillicus, firm and below the umbillicus, normal lochia, normal lochia. Musculoskeletal extremities nontender. extremities nontender. Impression and Plan Plan Routine care. Course: Progressing as expected. some c/o REN consistent with spinal REN anesthesia aware and managingBellevue HospitalComment on above:Result Comment: Electronically Signed By: Rhea LAZARO, You Ortiz.br\Date and Time Signed: 05/27/23 08:20 EDTVaccinationson [id number]#1.00CD:127Normal [facility]'S HospitalABO/Rhon 98-22-4822MZV/RhPositiveInvalid Interpretation [facility] HospitalComment on above:Performed By: #### [id number], 47170128, 6649650, [id number] ####[facility] [address] [place], [place] [address]LAT/Rh History Checkon 05-26-2023 ABO/Rh History CheckVerified Hx Blood TypeBellevue Hospital Comment on above:Performed By: #### [id number], 51969255, 0400607, [id number] ####[facility] [address] [place], [place] [address]TFGB on 70-37-2265RRLP Gel InterpNegativeBellevue HospitalComment on above:Performed By: #### 01007209, 87064135, [id number], 98526304 ####[facility] [address] [place], [place] [address]XDTOI BANKOrdered By: Raegan Esqueda on 91-14-7565MLG/Rh InterpPositiveInvalid Interpretation [facility] BB SubsectionABSC Gel InterpNegative (05/26/23 7:01 AM)NormalINTEGRIS [facility] [place] BB SubsectionBlood Bank ID#on [id number]#[id number] Invalid Interpretation [facility] HospitalComment on above:Performed By: #### [id number], [id number], 7965109, [id number] ####[facility] [address] [place], [place] [address]OYC w/Indiceson 48-16-0134Thmidluyvjb distribution width (RBC) [Ratio]15.6 %High10.9-14.2FNorwalk Memorial Hospital Comment on above:Performed By: #### [id number], [id number] #### [facility] [address] [place] [address] 48075Kdgjwkffgc (Bld) [Volume fraction]31.1 %Low34.0-46.0[facility]'S HospitalComment on above:Performed By: #### Selvin, [id number] #### [facility] [address] [place] [address] 46865Oemjlkaawm (Bld) [Mass/Vol]10.3 g/dLLow12.0-16.0[facility]'S HospitalComment on above:Performed By: #### [id number], [id number] #### [facility] [address] [place] [address] 13930HFC (RBC) [Entitic mass]24.5 pgLow27.0-34.0[facility]'S HospitalComment on above:Performed By: #### [id number], [id number] #### [facility] [address] [place] [address] 63144MDZV (RBC) [Mass/Vol]33.2 g/mTHrvnsh41.4-36.0[facility]'S HospitalComment on above:Performed By: #### [id number], [id number] #### [facility] [address] [place] [address] 01846WAD (RBC) [Entitic vol]74.0 fLLow80.0-100.0[facility]'S HospitalComment on above:Performed By: #### [id number], [id number] #### [facility] [address] [place] [address] 88656Dklewskx mean volume (Bld) [Entitic vol]8.4 fLNormal6.4-10.8 [facility]S HospitalComment on above:Performed By: #### [id number], [id number] #### [facility] [address], [place] [address]Ebqvuapyi (Bld) [#/Vol]243.0 E9/ZKlyisc280.0-500.0[facility]'S HospitalComment on above:Performed By: #### [id number], [id number] #### [facility] [address] [place] [address] 86677DCJ (Bld) [#/Vol]4.2 E12/LLow4.3-5.9[facility] Comment on above:Performed By: #### [id number], [id number] #### [facility] [address] [place] [address] 99424HRX corrected for nucl RBC Auto (Bld) [#/Vol]10.3 E9/LNormal 4.0-11.0[facility]'S HospitalComment on above:Performed By: #### [id number], [id number] #### [facility] [address] [place] [address] 78727Euawfxx for Procedure/Surgeryon 59-25-7365Psjmkwz for Procedure/[id number]#1.00CD:127Normal [facility]S HospitalConsent for Procedure/Surgery .[id number]#1.00CD:127NormCity HospitalConsent for Procedure/Surgery [id number]#1.00CD:127NormalDayton Children'S HospitalConsent for Treatmenton 20-64-0340Ungufpz for Treatment [id number]#1.00CD:127NormCity HospitalConsent for [id number]#1.00CD:127 NormalDayton Children'S HospitalDischarge Instructionson 76-64-6584Anhoxgcdg [id number]#1.00CD:127NormalDayton Children'S HospitalHEMATOLOGYOrdered By: Bridgett Steven on 05-26-2023 Erythrocyte distribution width (RBC) [Ratio]15.6 %High10.9 - 14.2 %[facility] HemeAutoSSHematocrit (Bld) [Volume fraction]31.1 %Low34.0 - 46.0 %[facility] HemeAutoSSHemoglobin (Bld) [Mass/Vol]10.3 g/dLLow12.0 - 16.0 gm/dLFTMC HemeAutoSSMCH (RBC) [Entitic mass]24.5 pgLow27.0 - 34.0 pgFTMC HemeAutoSSMCHC (RBC) [Mass/Vol]33.2 g/rLMvbdge50.4 - 36.0 gm/dLFTMC HemeAutoSSMCV (RBC) [Entitic vol]74.0 fLLow80.0 - 100.0 fLFTMC HemeAutoSSPlatelet mean volume (Bld) [Entitic vol]8.4 fLNormal6.4 - 10.8 fLFTMC HemeAutoSSPlatelets (Bld) [#/Vol] 243.0 E9/RMoquqw566.0 - 500.0 E9/LFTMC HemeAutoSSRBC (Bld) [#/Vol]4.2 E12/LLow 4.3 - 5.9 E12/LFTMC HemeAutoSSWBC corrected for nucl RBC Auto (Bld) [#/Vol]10.3 E9/LNormal4.0 - 11.0 E9/LFTMC HemeAutoSSHelp Me Grow Referralon 65-74-0913Gvst Me Grow [id number]#1.00CD:127Normal [facility]S HospitalInsurance Correspondence Officeon 19-13-3786Rzdawbdfs Correspondence [id number]#1.00CD:127Normal [facility]S HospitalPrenatal Recordson 88-14-5381Yhwjkqyi Records [id number]#1.00CD:127NormalFisher Johns Hopkins HospitalProgress Note-Physicianon 43-75-3795Oblwdgef Note-PhysicianPatient: KASSIE CRAWFORD Age: 23 years Sex: Female : 2000 Associated Diagnoses: None Author: Pacheco Min Jr., DO Chief Complaint Intrauterine Health Status Allergies: Allergic Reactions (All) No Known Allergies Current medications.Problem list: All Problems Acid reflux / SNOMED CT 2668987288 / Confirmed Age mother conceived under 17 / Patient Care / Confirmed History of / SNOMED CT 274130703 / Confirmed / SNOMED CT 543710771 / Confirmed Resolved: Arthritis / SNOMED CT 8704702 Resolved: / SNOMED CT 327680883 Resolved: / SNOMED CT 593233515 Resolved: / SNOMED CT 313217304 Resolved: / SNOMED CT 669074484 Resolved: / SNOMED CT 459444375 Resolved: Yeast / SNOMED CT 572498367 Review of Systems Respiratory: Negative. Cardiovascular: Negative. [...] before the epidural was attempted) (lidocaine without epinephrine,3 cc injected subcutaneously), approach (midline), needle (17 ga poliuhy) (placed via loss of resistance technique, At _L4-L5_ interspace.), aspiration (cerebral spinal fluid, not blood), injectant (test dose consisting of 3 ml of 1.5% lodocaine with 1:200,000 epi) (test dose given, Epidural catheterinserted and secured at a depth of 12 cm at skin.). Procedure tolerated: fairly. Complications: paresthesia, Negative heme, CSF return noted, and response to test dose: rapid onsetof weakness, drop in blood pressure.. Patient BP responded well to ephedrine dosing. Additional fluids ordered. Assuming intrathecal catheter.. [employer] Epidural Medications Administered: Bolus dose consisted of 100 mcg of fentanyl (2 ml) at 1015. Awaiting return of patient sensation prior to starting epidural infusion. Nursing instructed to leave catheter in position for at least 24 hours before removal.[facility]vue HospitalComment on above:Result Comment: Electronically Signed By: Pacheco Min Jr., DO\.avril\Date and Time Signed: 05/26/23 10:38 EDTUA With Cult Reflexon 55-90-1923Bodejcxa LM Ql (Urine sed) TRACENormalTraceDayton Children'S HospitalComment on above:Order Comment: Urinary Catheter Insertion triggered Urinalysis With Culture Reflex order by discern.Performed By: #### [id number] #### [facility] [address], [place] [address]Dutrhtbqh Ql (U)NegativeNormalNegativeDayton Children'S HospitalComment on above:Order Comment: Urinary Catheter Insertion triggered Urinalysis With Culture Reflex order by discern.Performed By: #### [id number] #### [facility] [address], [place] [address]Dtvppqd (U)CLEARNormalClearDayton Children'S HospitalComment on above:Order Comment: Urinary Catheter Insertion triggered Urinalysis With Culture Reflex order by discern.Performed By: #### [id number] #### [facility] [address] [place] [address] 64383Mkwnn (U)YellowInvalid Interpretation CodeDayton Children'S HospitalComment on above:Order Comment: Urinary Catheter Insertion triggered Urinalysis With Culture Reflex order by discern.Performed By: #### [id number] #### [facility] [address] [place] [address] 58818Fllepcemsh cells.squamous LM.HPF (Urine sed) [#/Area]0-2Normal 0-2FNorwalk Memorial HospitalComment on above:Order Comment: Urinary Catheter Insertion triggered Urinalysis With Culture Reflex order by discern.Performed By: #### [id number] #### [facility] [address] [place] [address] 13876Xvfrmmr Test strip (U) [Mass/Vol]NegativeNormalNegativeDayton Children'S HospitalComment on above:Order Comment: Urinary Catheter Insertion triggered Urinalysis With Culture Reflex order by discern.Performed By: #### [id number] #### [facility] [address] [place] [address] 81207Elkklxkkdz Ql (U)NegativeNormalNegativeDayton Children'S HospitalComment on above:Order Comment: Urinary Catheter Insertion triggered Urinalysis With Culture Reflex order by discern.Performed By: #### [id number] #### [facility] [address] [place] [address] 18112Rzdbltj (U) [Mass/Vol]TRACEInvalid Interpretation CodeNegative [facility]S HospitalComment on above:Order Comment: Urinary Catheter Insertion triggered Urinalysis With Culture Reflex order by discern.Performed By: #### [id number] #### [facility] [address] [place] [address] 51833Cbveevv.plasma/[place].RBC (Bld) [Mass ratio]5-3Czwqiu2-6CithrhNorwalk Memorial HospitalComment on above:Order Comment: Urinary Catheter Insertion triggered Urinalysis With Culture Reflex order by discern.Performed By: #### [id number] #### [facility] [address] [place] [address] 30946Euqvf Ql (Urine sed)TRACENormalDayton Children'S Hospital Comment on above:Order Comment: Urinary Catheter Insertion triggered Urinalysis With Culture Reflex order by discern.Performed By: #### [id number] #### [facility] [address] [place] [address] 58296Qpyhhdh Ql (U)NegativeNormalNegativeDayton Children'S Hospital Comment on above:Order Comment: Urinary Catheter Insertion triggered Urinalysis With Culture Reflex order by discern.Performed By: #### [id number] #### [facility] [address] [place] [address] 27362aN (U)7.0 [pH]Invalid Interpretation Code5.0-9.0[facility]'S HospitalComment on above:Order Comment: Urinary Catheter Insertion triggered Urinalysis With Culture Reflex order by discern.Performed By: #### [id number] #### [facility] [address] [place] [address] 48778Xajpsrk (U) [Mass/Vol]1+AbnormalNegativeDayton Children'S HospitalComment on above:Order Comment: Urinary Catheter Insertion triggered Urinalysis With Culture Reflex order by discern.Performed By: #### [id number] #### [facility] [address] [place] [address] 53184Axlhnhos gravity (U) [Rel density]1.015Invalid Interpretation Code1.005-1.030[facility]'S HospitalComment on above:Order Comment: Urinary Catheter Insertion triggered Urinalysis With Culture Reflex order by discern.Performed By: #### [id number] #### [facility] [address] [place] [address] 14366Oerb of Urine collection methodCatheterNormalDayton Children'S HospitalComment on above:Order Comment: Urinary Catheter Insertion triggered Urinalysis With Culture Reflex order by discern.Performed By: #### [id number] #### [facility] [address] [place] [address] 72946Rgheyodevhir Qn (U)0.2 {Enedelia'U}/dLNormal0.0-1.0[facility]'S HospitalComment on above:Order Comment: Urinary Catheter Insertion triggered Urinalysis With Culture Reflex order by discern.Performed By: #### [id number] #### [facility] [address], [place] [address]EUJ Auto Ql (U)NegativeNormalNegativeFisher Johns Hopkins HospitalComment on above:Order Comment: Urinary Catheter Insertion triggered Urinalysis With Culture Reflex order by discern.Performed By: #### [id number] #### [facility] [address], [place] [address]LEB LM.HPF (Urine sed) [#/Area]0-7Jpocsx0-1Qoxvwk [facility] HospitalComment on above:Order Comment: Urinary Catheter Insertion triggered Urinalysis With Culture Reflex order by discern.Performed By: #### [id number] #### [facility] [address], [place] [address]YJAAULZJOSDwynxqu By: Kaylah Peng on 06-55-4521Rtambitj LM Ql (Urine sed)Trace /HPFNormalTrace/HPFINTEGRIS [facility] [place] UA Auto SSBilirubin Ql (U)Negative (05/26/23 11:15 AM)NormalNegativeINTEGRIS COMM[facility] [place] UA Auto SSClarity (U)Clear (05/26/23 11:15 AM)NormalClearFMERCY HOSPITAL [facility] – [place] UA Auto SSColor (U)YellowInvalid Interpretation CodeINTEGRIS COMM[facility]ITY [facility] [place] UA Auto SSEpithelial cells.squamous LM.HPF (Urine sed) [#/Area]0-2 /HPFNormal0-2/HPFINTEGRIS [facility] [place] UA Auto SSGlucose Test strip (U) [Mass/Vol] Negative (05/26/23 11:15 AM)NormalNegativeINTEGRIS [facility] [place] UA Auto SSHemoglobin Ql (U)Negative (05/26/23 11:15 AM)NormalNegativeINTEGRIS [facility] [place] UA Auto SSKetones (U) [Mass/Vol]Trace *NA* (05/26/23 11:15 AM)Invalid Interpretation CodeNegativeINTEGRIS [facility] [place] UA Auto SS [place].plasma/[place].RBC (Bld) [Mass ratio]0-3 /HPFNormal0-3/HPFINTEGRIS [facility] [place] UA Auto SSMucus Ql (Urine sed)Trace (05/26/23 11:15 AM)NormalINTEGRIS COMM[facility]ITY [facility] [place] UA Auto SSNitrite Ql (U)Negative (05/26/23 11:15 AM)NormalNegativeINTEGRIS [facility] [place] UA Auto SSpH (U)7.0 *NA* (05/26/23 11:15 AM)Invalid Interpretation Code5.0 - 9.0[facility] [place] UA Auto SSProtein (U) [Mass/Vol]1+ *ABN* (05/26/23 11:15 AM)Invalid Interpretation CodeNegativeINTEGRIS COMM[facility]ITY [facility] [place] UA Auto SSSpecific gravity (U) [Rel density]1.015 *NA* (05/26/23 11:15 AM)Invalid Interpretation Code1.005 - 1.030[facility] [place] UA Auto SSUA Spec DescCatheter (05/26/23 11:15 AM)NormalINTEGRIS COMM[facility]ITY [facility] [place] UA Auto SSUrobilinogen Qn (U)0.7208291 {Enedelia'U}/dLNormal0.0 - 1.0 EU/dLINTEGRIS COMM[facility]ITY [facility] [place] UA Auto SSWBC Auto Ql (U)Negative (05/26/23 11:15 AM)NormalNegativeINTEGRIS [facility] [place] UA Auto SSWBC LM.HPF (Urine sed) [#/Area]0- 5 /HPFNormal0-5/HPFINTEGRIS COMM[facility]ITY [facility] [place] UA Auto SSNursing Assessmenton 05-19-8128Whwkhao [id number]#1.00CD:[address] [place], [place] [address]Consent for Treatmenton 94-20-0447Hzxxsfi for Treatment [id number]#1.00CD:127Bellevue HospitalDischarge Instructionson 87-10-2635Bufjrqsxe Instructions [id number]#1.00CD:[address] [place], [place] [address]Inpatient Clinical Summaryon 73-04-1244Tdxppvwdy Clinical Summary [address] [address] Clinical Summary Person Information Name: YVETTE KASSIE López Mallory/[facility] Age: 23 Years : 2000 Sex: Female PCP: TUAN HAAS DO Marital Status: Single Phone: [phone] Race: White Ethnicity: Non- or Language: Singaporean Visit Id: Visit Reason: DECREASED MOVEMENT Speciality: Acuity: Obs Enc Type: OB Triage Med Service: Obstetrics Arrival: 05/18/2023 19:33:48 Discharge: 05/18/2023 20:34:00 Dispo Type: Home (Routine DC) Address: [address] [place] [id number] Provider Notes: Diagnosis: Problems Active History of [...] Follow up: With: Address: When: You Wilkerson [address] [place] [address] Business (1) In 1 day 05/19/2023 Comments: Call for any problems. Call physician for heavy vaginal bleeding Return for contractions closer, longer, harder Return for decreased movement Return if ruptured membranes or vaginal bleeding Patient Education Information:[facility] HospitalInpatient Patient Summaryon 98-13-6165Xbvrbxqvu Patient Summary [address] [address] Patient Discharge Instructions PERSON INFORMATION [...] Follow up: With: Address: When: You Wilkerson [address] [place], [place] [address]BURKEMI BAKARI, [place] [address], [facility] [address] Business (1) In day 05/19/2023 Comments: Call [...] M, have received the attached patient education materials/instructions and have verbalized understanding. Patient Signature Date Clinican/Nurse Signature Date MEDICATION LIST Medications to Continue with No Changes Other Medications multivitamin (Folinic-Plus oral tablet) Last Dose: Next Dose: multivitamin, ( Multivitamins) 1 Tablets By Mouth every day. Last Dose: Next Dose: omeprazole (omeprazole 20 mg Cap-DR) Last Dose: Next Dose: Pharmacy Information: Destiny [facility] PATIENT EDUCATION INFORMATION Instructions: Medication Leaflets: [...] to serve you. Thank you for choosing [facility] NormalDayton Children'S HospitalInsurance Correspondenceon 09-11-5222Wsjajttxg Correspondence [id number]#1.00CD:127NoRegency Hospital Cleveland EastGroup B Strep by PCRon 83-87-5476Jydqf B Strep colonization by PCRPositive AbnormalNegativeDayton Children'S HospitalComment on above:Performed By: #### [id number] ####[facility] Mlpbpwpyzf[address] [address]Ulvqgfxsz Orderon 23-14-4466Vyuwiylmi Order [id number]#1.00CD:127NormCity HospitalNursing Assessmenton 38-97-8680Hbrudqy Assessment [id number]#1.00CD:127B[facility] HospitalConsent for Treatmenton 32-05-5567Eytmidc for Treatment [id number]#1.00CD:127[facility] HospitalDischarge Instructionson 34-96-2381Zajpuifvx Instructions [id number]#1.00CD:127B[facility] HospitalInpatient Clinical Summaryon 53-99-5794Oestykagk Clinical Summary [address] [address] Clinical Summary Person Information Name: KASSIE CRAWFORD Mallory/[facility] Age: 22 Years : 2000 Sex: Female PCP: TUAN HAAS DO Marital Status: Single Phone: [phone] Race: White Ethnicity: Non- or Language: Singaporean Visit Id: Visit Reason: uti Speciality: Acuity: Enc Type: OB Triage Med Service: Obstetrics Arrival: 05/02/2023 15:48:10 Discharge: 05/02/2023 16:55:00 Dispo Type: Home (Routine DC) Address: [address] [place] [id number] Provider Notes: Diagnosis: Problems Active History of [...] Follow up: With: Address: When: [facility] [address] [address] [facility] (6) In 10 days 05/12/2023 Patient Education Information: and Urinary Tract InfectionNoRegency Hospital Cleveland EastInpatient Patient Summaryon 80-32-2924Qgjqvcsfn Patient Summary [address] [address] Patient Discharge Instructions PERSON INFORMATION [...] results: Follow up: With: Address: When: You Payan [employer] [address] [address] Business (1) In 10 days 05/12/2023 In the event that this physician does not participate in your insurance network, please consult with your insurance company to find a nearby participating provider. Comment: YVETTE Wan ABAGAIL M, have received the attached patient education materials/instructions and have verbalized understanding. Patient Signature Date Clinican/Nurse Signature Date MEDICATION LIST Medications to Continue with No Changes Other Medications multivitamin (Folinic-Plus oral tablet) Last Dose: Next Dose: multivitamin, ( Multivitamins) 1 Tablets By Mouth every day. Last Dose: Next Dose: omeprazole (omeprazole 20 mg Cap-DR) Last Dose: Next Dose: Pharmacy Information: [facility] PATIENT EDUCATION [...] this treated? Treatment fo (more content not included)...NormalDayton Children'S Hospital Insurance Correspondence Officeon 14-94-6695Oeqjlhmpo Correspondence Office [id number]#1.00CD:127NormalDayton Children'S HospitalUA With Cult Reflexon 23-58-6549Tfiqkjfu LM Ql (Urine sed)TRACENormalTrace [facility]'S HospitalComment on above:Performed By: #### [id number] #### [facility] [address], [place] [address]Zrdgbcxvl Ql (U)NegativeNormalNegativeDayton Children'S HospitalComment on above:Performed By: #### [id number] #### [facility] [address] [place], [place] [address]Ilyvdrw (U)CLEARNormalClearDayton Children'S HospitalComment on above:Performed By: #### [id number] #### [facility] [address], [place] [address]Dxeov (U)YELLOWNormalYellowDayton Children'S HospitalComment on above:Performed By: #### [id number] #### [facility] [address], [place] [address]Qkckmybrdn cells.squamous LM.HPF (Urine sed) [#/Area]3-4Normal 0-2Fisher Johns Hopkins HospitalComment on above:Performed By: #### [id number] #### [facility] [address], [place] [address]Uytegcg Test strip (U) [Mass/Vol]NegativeNormalNegativeDayton Children'S HospitalComment on above:Performed By: #### [id number] #### [facility] [address], [place] [address]Eisabucmir Ql (U)NegativeNormalNegHolzer HospitalComment on above:Performed By: #### [id number] #### [facility] [address], [place] [address]Lfnhute (U) [Mass/Vol]TRACEInvalid Interpretation CodeNegative [facility]'S HospitalComment on above:Performed By: #### [id number] #### [facility] [address] [place] [address]Ctfmnwm.plasma/[place].RBC (Bld) [Mass ratio]2-5Pjjret1-4Gthopc [facility] HospitalComment on above:Performed By: #### [id number] #### [facility] [address], [place] [address]Mdtsk Ql (Urine sed)1+NormalDayton Children'S HospitalComment on above:Performed By: #### [id number] #### [facility] [address] [place] [address]Jyftacq Ql (U)NegativeNormalNegativeDayton Children'S Hospital Comment on above:Performed By: #### [id number] #### [facility] [address] [place] [address]57[address]bD (U)6.0 [pH]Invalid Interpretation Code5.0-9.0Day[facility] Children'S HospitalComment on above:Performed By: #### [id number] #### [facility] [address] [place] [address]Ayupfde (U) [Mass/Vol]TRACEAbnormalNegativeDayton Children'S HospitalComment on above:Performed By: #### [id number] #### [facility] [address] [place] [address]Qhuszszv gravity (U) [Rel density]>=1.030Invalid Interpretation Code1.005-1.030Day[facility] Children'S HospitalComment on above:Performed By: #### [id number] #### [facility] [address] [place] [address]Gech of Urine collection methodClean CatchNormalDayton Children'S HospitalComment on above:Performed By: #### [id number] #### [facility] [address] [place] [address]Hecuyhvcfvte Qn (U)1.0 {Enedelia'U}/dLNormal0.0-1.0Day[facility] Children'S HospitalComment on above:Performed By: #### [id number] #### [facility] [address] [place], [place] [address]ZTW Auto Ql (U)NegativeNormalNegativeUnc Health Blue Ridge - Morgantoner Johns Hopkins HospitalComment on above:Performed By: #### [id number] #### [facility] [address], [place] [address]VFI LM.HPF (Urine sed) [#/Area]2-5Gtufat0-6Vgjlah [facility] Hopkins HospitalComment on above:Performed By: #### [id number] #### [facility] [address], [place] [address]QXYBZTAFOSFebataz By: Kaylah Peng on 34-34-6520Hoosoers LM Ql (Urine sed)Trace /HPFNormalTrace/HPFINTEGRIS [facility] [place] UA Auto SSBilirubin Ql (U)Negative (05/02/23 3:56 PM)NormalNegativeINTEGRIS [facility] [place] UA Auto SSClarity (U)Clear (05/02/23 3:56 PM)NormalClearFMERCY HOSPITAL [facility] [place] UA Auto SSColor (U)Yellow (05/02/23 3:56 PM)NormalYellowINTEGRIS COMM[facility]ITY [facility] [place] UA Auto SSEpithelial cells.squamous LM.HPF (Urine sed) [#/Area]3-4 /HPFNormal0-2/HPFINTEGRIS COMM[facility]ITY [facility] [place] UA Auto SSGlucose Test strip (U) [Mass/Vol]Negative (05/02/23 3:56 PM)NormalNegativeINTEGRIS [facility] [place] UA Auto SSHemoglobin Ql (U)Negative (05/02/23 3:56 PM)NormalNegativeINTEGRIS [facility] [place] UA Auto SSKetones (U) [Mass/Vol]Trace *NA* (05/02/23 3:56 PM)Invalid Interpretation CodeNegativeINTEGRIS [facility] [place] UA Auto SS [place].plasma/[place].RBC (Bld) [Mass ratio]0-3 /HPFNormal0-3/HPFINTEGRIS [facility] [place] UA Auto SSMucus Ql (Urine sed)1+ (05/02/23 3:56 PM)NormalIN[facility] [place] UA Auto SSNitrite Ql (U)Negative (05/02/23 3:56 PM)NormalNegativeINTE[facility] [place] UA Auto SSpH (U)6.0 *NA* (05/02/23 3:56 PM)Invalid Interpretation Code5.0 - 9.0[facility] [place] UA Auto SSProtein (U) [Mass/Vol]Trace *ABN* (05/02/23 3:56 PM)Invalid Interpretation CodeNegativeINTEGRIS [facility] [place] UA Auto SSSpecific gravity (U) [Rel density]>=1.030 *NA* (05/02/23 3:56 PM)Invalid Interpretation Code1.005 - 1.030[facility] [place] UA Auto SSUA Spec DescClean Catch (05/02/23 3:56 PM)NormalINTE[facility] [place] UA Auto SSUrobilinogen Qn (U)1.8461252 {Enedelia'U}/dL Normal0.0 - 1.0 EU/dLINTEGRIS [facility] [place] UA Auto SSWBC Auto Ql (U)Negative (05/02/23 3:56 PM)NormalNegativeINTE[facility] [place] UA Auto SSWBC LM.HPF (Urine sed) [#/Area]0-5 /HPFNormal0-5/HPFINTEGRIS [facility] [place] UA Auto SSRPR with Conf Rfxon 84-23-0354Fnorgf Ab RPR Ql (S)Non-ReactiveInvalid Interpretation CodeNon ReactiveDayton Children'S HospitalComment on above:Result Comment: Performed at: [facility] [id number] PhD Jyoti HurstPerformed By: #### [id number] ####[facility] [address] [place] [address] CHEMISTRYOrdered By: SYSTEM SYSTEM on 47-37-9436Jqwdekq 1 Hr post 50 g glucose PO [Mass/Vol]102 mg/yUPixhxm20 - 140 mg/dLINTEGRIS [facility] [place] RemisolConsent for Treatmenton 83-13-6632Nfqluvx for Treatment [id number]#1.00CD:127NormalDayton Children'S HospitalGest Scr Glu 1 Hron 52-37-8803Tvfmphy [Mass/Vol]102 mg/rYAqdlzz96-239 [facility]'S HospitalComment on above:Result Comment: Positive Screen =1 HR > 140mg/dLPerformed By: #### [id number] ####[facility] [address] [place], [place] [address]NPAKIAVLYUXgsgnqq By: Steph William on 56-79-9689Uksocuuofb (Bld) [Volume fraction]31.2 %Low34.0 - 46.0 %[facility] HemeAutoSSHemoglobin (Bld) [Mass/Vol]10.5 g/dLLow12.0 - 16.0 gm/dL [facility] HemeAutoSSHct & Hgbon 14-93-6263Tcxmaihxmx (Bld) [Volume fraction]31.2 %Low 34.0-46.0Day[facility] Children'S HospitalComment on above:Performed By: #### [id number], [id number] ####[id number] [place], [place] [address]Fmatecfgus (Bld) [Mass/Vol]10.5 g/dLLow12.0-16.0 [facility]'S HospitalComment on above:Performed By: #### [id number] ####[address] [address]Lzwxiyvlv Orderon 49-92-6592Ggzgdwjig Order [id number]#1.00CD:127NormalDayton Children'S HospitalCHEMISTRYOrdered By: SYSTEM SYSTEM on 67-53-9128HRQ.beta subunit Qn435 m[IU]/mLHigh1 - 3 mIU/mLFTMC RemisolCHEMISTRYOrdered By: SYSTEM SYSTEM on 31-10-2050NIC.beta subunit Qn218 m[IU]/mLHigh1 - 3 mIU/mLFT[facility] Remisol Progesterone [Mass/Vol]7.90 ng/mLInvalid Interpretation CodeFTMC Remisol HEMATOLOGYOrdered By: Steph William on 87-71-9814Jmephkfhyfq distribution width (RBC) [Ratio]15.4 %High10.9 - 14.2 %[facility] HemeAutoSSHematocrit (Bld) [Volume fraction]34.9 %Omoygr15.0 - 46.0 %[facility] HemeAutoSSHemoglobin (Bld) [Mass/Vol]11.5 g/dLLow12.0 - 16.0 gm/dLFTMC HemeAutoSSMCH (RBC) [Entitic mass]25.1 pgLow27.0 - 34.0 pgFTMC HemeAutoSSMCHC (RBC) [Mass/Vol]32.9 g/sVZgysur48.4 - 36.0 gm/dLFTMC HemeAutoSSMCV (RBC) [Entitic vol]76.3 fLLow80.0 - 100.0 fLFTMC HemeAutoSS Platelet mean volume (Bld) [Entitic vol]8.1 fLNormal6.4 - 10.8 fLFTMC HemeAutoSS Platelets (Bld) [#/Vol]316.0 E9/QKedsuy516.0 - 500.0 E9/LFTMC HemeAutoSSRBC (Bld) [#/Vol]4.6 E12/LNormal4.3 - 5.9 E12/LFTMC HemeAutoSSWBC corrected for nucl RBC Auto (Bld) [#/Vol]8.5 E9/LNormal4.0 - 11.0 E9/LFTMC LpqsJpluHDH5S with Estimated Average Gluon 52-15-0234PyI0s (Bld) [Mass fraction]5.800 %High4.3-5.6 %[place] Other HbA1c (Bld) [Mass fraction]120 mg/dLNoBelmont Behavioral Hospital EZBOB Other Albumin [Mass/volume] in Serum or PlasmaOrdered By: Tuan Haas on 77-46-4517Gohgpwh [Mass/Vol]4.0 g/dL3.2-5.5FOhio State Harding HospitalBasophils Auto (Bld) [#/Vol]Ordered By: Tuan Haas on 09-16-2022 Basophils (Bld) [#/Vol]0.1 10*3/uL0.0-0.2FOhio State Harding Hospital Basophils/100 WBC Auto (Bld)Ordered By: Tuan Haas on 31-88-0795Webfsvked/100 WBC (Bld)0.9 %.[facility] HospitalC reactive protein [Mass/volume] in Serum or PlasmaOrdered By: Tuan Haas on 66-87-8778BPV [Mass/Vol]0.7 mg/dL 0.0-1.0[facility] HospitalC-Reactive Proteinon 18-20-6435J- Reactive Protein0.7 mg/dLNormal0.0-1.0 mg/dLNoMinitrade Other CT biopsyOrdered By: Tuan Haas on 09-16-2022 Transferrin [Mass/Vol]362 mg/pC768-883LzyomvqzdBethesda North Hospital Cholesterol [Mass/volume] in Serum or PlasmaOrdered By: Tuan Haas on 09-16-2022 Cholesterol [Mass/Vol]157 mg/hATfeiuy735-749 mg/dLBethesda North HospitalComment on above:Chol less than 200 mg/dl low riskChol 201-239 mg/dl borderline riskChol 240 mg/dl and greater high riskCholesterol in LDL Calc [Mass/Vol]Ordered By: Tuan Haas on 72-35-1529Knlrkvrzonc in LDL [Mass/Vol]96 mg/dL0-100[facility] HospitalComment on above:LDL ATP III CLASSIFICATIONLDL less than 100 mg/dL OptimalLDL 100-129 mg/dL Near or above xhnysyjTZC215-000 mg/dL Borderline highLDL 160-189 mg/dL HighLDL greater than 189 mg/dL Very highCholesterol in VLDL Calc [Mass/Vol]Ordered By: Tuan Haas on 66-12-0492Ntwbecadxls in VLDL [Mass/Vol]19 mg/dLBethesda North HospitalComplete Blood Count Auto Diffon 52-12-1028Eqjkymhbi (Bld) [#/Vol] 0.363317627 10*3/uLNormal0.0-0.2 10*3/uLNoMinitrade Other Basophils/100 WBC (Bld)0.900 %. [facility] [employer] Other Eosinophils (Bld) [#/Vol]0.705042934 10*3/uLNormal0.0- 0.45 10*3/[employer] Other Eosinophils/100 WBC (Bld)1.800 %. %[employer] Other Erythrocyte distribution width (RBC) [Ratio]15.900 % High11.9-15.3 %[employer] Other Hematocrit (Bld) [Volume fraction]34.900 %Tqwszx95.0- 46.4 %[employer] Other Hemoglobin (Bld) [Mass/Vol]11.760482 g/dLLow11.8-15.4 g/dLMinitrade Other Lymphocytes (Bld) [#/Vol]1.623738076 10*3/uLNormal 1.00-4.8 10*3/[employer] Other Lymphocytes/100 WBC (Bld)26.600 %. %[employer] Other MCH (RBC) [Entitic mass]24.8000 lhMvwxoh81.7-34.3 pg [employer] Other MCV (RBC) [Entitic vol]77.5000 dJRal92-257 fLMinitrade Other Monocytes (Bld) [#/Vol]0.152476575 10*3/uLNormal0.0- 0.8 10*3/[employer] Other Monocytes/100 WBC (Bld)9.600 %. %[employer] Other Neutrophils (Bld) [#/Vol]4.349114132 10*3/uLNormal1.8- 7.7 10*3/[employer] Other Neutrophils/100 WBC (Bld)61.100 %. %[employer] Other Platelet mean volume (Bld) [Entitic vol]7.9000 fL Normal6.3-10.7 fLCuba Chip[employer] Other WBC (Bld) [#/Vol]6.980783354 10*3/uLNormal3.8-11.6 10*3/[facility] HospitalMinitrade Other Complete Blood Count Auto Diff6.7 10*3/uLNormal3.8- 11.6 10*3/[employer] Other Complete Blood Count Auto Diff32.0 g/sCGnaudb85.0-35.0 g/dLInhibOx [employer] Other Complete Blood Count Auto Diff0.1 /100{WBC}Normal0-0.5 /100{WBC}[employer] Other Comprehensive Metabolic Panelon 52-85-1476Xmywgpb [Mass/Vol]4.733982 g/dLNormal3.2-5.5 g/dLCuba [employer] Other ALT [Catalytic activity/Vol]23 U/NObrbqm97-94 U/LNSanaexpert Other Bilirubin [Mass/Vol]0.4767485 mg/dLNormal0.3-1.2 mg/dL [employer] Other Calcium [Mass/Vol]9.9114428 mg/dLNormal8.2-10.2 mg/dL [employer] Other CO2 [Moles/Vol]23.77496708 mmol/LGdglnp39.0-30.0 mmol/LNSanaexpert Other Creatinine [Mass/Vol]0.74368475 mg/dLNormal0.44-1.03 mg/dLNort [employer] Other Potassium [Moles/Vol]4.49919648 mmol/LNormal3.5-5.1 mmol/LNorth [employer] Other Protein [Mass/Vol]7.831236 g/dLNormal6.1-7.9 g/dLNoeastern missouri state hospital [employer] Other Comprehensive Metabolic Panel> 60Nort [employer] Other Comprehensive Metabolic Panel3.2 g/dLNoeastern missouri state hospital [employer] Other Creatinine and Glomerular filtration rate.predicted panel (S/P/Bld)Ordered By: Tuan Haas on 89-89-7906Jvrjgzaiow [Mass/Vol]0.75 mg/dL0.44-1.03[facility] HospitalEosinophils Auto (Bld) [#/Vol] Ordered By: Tuan Haas on 74-78-5853Zfovaiabcer (Bld) [#/Vol]0.1 10*3/uL0.0-0.45 [facility] HospitalEosinophils/100 WBC Auto (Bld)Ordered By: Tuan Haas on 80-30-2454Bmjmtyonyaw/100 WBC (Bld)1.8 %.[facility] HospitalErythrocyte Sedimentation Rateon 48-78-5170FLD (Bld) [Velocity]28 mm/hHigh 0-19Nort [employer] Other Erythrocyte distribution width Auto (RBC) [Ratio] Ordered By: Tuan Haas on 94-67-5472Lpllwrynvkx distribution width (RBC) [Ratio] 15.9 %11.9-15.3FOhio State Harding HospitalErythrocyte sedimentation rate by Photometric methodOrdered By: Tuan Hasa on 49-34-0286LHL Photometric method (Bld) [Velocity]28 mm/hr0-19[facility] HospitalErythrocytes [#/volume] in Blood by Automated countOrdered By: Tuan Haas on 29-73-9343FSR (Bld) [#/Vol]4.50 10*6/uLNormal3.60-5.00[facility] Estimated glomerular filtration rate (GFR) non- AmericanOrdered By: Tuan Haas on 13-95-6373RXL/1.73 sq M.predicted among non-blacks MDRD (S/P/Bld) [Vol rate/Area]> 60 mL/MinBethesda North HospitalFerritinon 09-16-2022 Ferritin [Mass/Vol]6.0432995 ng/nULul17-445.8 ng/mLNray county memorial hospital [employer] Other Ferritin [Mass/volume] in Serum or PlasmaOrdered By: Tuan Haas on 77-84-7579Ndeyokcj [Mass/Vol]6.6 ng/dY73-354.8[facility] HospitalGlobulin Calc (S) [Mass/Vol]Ordered By: Tuan Haas on 09-16-2022 Globulin (S) [Mass/Vol]3.2 g/dLBethesda North HospitalGlucose mean value [Mass/volume] in Blood Estimated from glycated hemoglobinOrdered By: Tuan Haas on 37-99-8605Nnlhxgq glucose Estimated from glycated hemoglobin (Bld) [Mass/Vol]120 mg/dLBethesda North HospitalHematocrit Auto (Bld) [Volume fraction]Ordered By: Tuan Haas on 95-97-0725Grnpiqdxkp (Bld) [Volume fraction]34.9 %34.0-46.4FOhio State Harding HospitalHemoglobin A1c percentageOrdered By: Tuan Haas on 83-60-2813PvZ7b (Bld) [Mass fraction]5.8 % 4.3-5.6FOhio State Harding HospitalComment on above:Increased risk for diabetes: 5.7 - 6.4diabetes: >6.4glycemic control for adults with diabetes: &l t;7.0Hemoglobin [Mass/volume] in BloodOrdered By: Tuan Haas on 09-16-2022 Hemoglobin (Bld) [Mass/Vol]11.2 g/dL11.8-15.4FOhio State Harding Hospital Iron [Mass/volume] in Serum or PlasmaOrdered By: Tuan Haas on 57-29-2474Xmqo [Mass/Vol]55 ug/xTDmawcs09-315 ug/dLBethesda North HospitalIron and TIBC Profileon 46-19-4849Kqdd and TIBC Aogyuuj15.8 %Ayz95-50 %[employer] Other Iron binding capacity [Mass/volume] in Serum or Plasma Ordered By: Tuan Haas on 91-13-6671Gvzb binding capacity [Mass/Vol]507 ug/dL 255-450Bet[facility] North HospitalIron saturation [Mass Fraction] in Serum or PlasmaOrdered By: Tuan Haas on 97-37-6933Cztl saturation [Mass fraction]10.8 %20-50[facility] HospitalLeukocytes [#/volume] corrected for nucleated erythrocytes in Blood by Automated counOrdered By: Tuan Haas on 17-88-3042SVT corrected for nucl RBC Auto (Bld) [#/Vol]6.7 10*3/uL3.8-11.6 [facility] HospitalLipid Panelon 41-34-0996Mbmswnzavgn in LDL Elph Qn96 mg/dLNormal0-100 mg/dLNoInhibOx [employer] Other Lipid Panel96 mg/fNCswlve99-623 mg/dLNoMinitrade Other Lipid Panel19 mg/dLNoMinitrade Other Lymphocytes Auto (Bld) [#/Vol]Ordered By: Tuan Haas on 69-86-1992Lsxujlhcqnw (Bld) [#/Vol]1.8 10*3/uL1.00-4.8[facility] HospitalLymphocytes/100 WBC Auto (Bld)Ordered By: Tuan Haas on 09-16-2022 Lymphocytes/100 WBC (Bld)26.6 %.[facility] Auto (RBC) [Entitic mass]Ordered By: Tuan Haas on 02-18-0052NBP (RBC) [Entitic mass]24.8 pg24.7-34.3FOhio State Harding HospitalMCHC Auto (RBC) [Mass/Vol]Ordered By: Tuan Haas on 46-48-3680FDCE (RBC) [Mass/Vol]32.0 g/dL32.0-35.0[facility] HospitalMCV Auto (RBC) [Entitic vol]Ordered By: Tuan Haas on 21-21-2205OOT (RBC) [Entitic vol]77.5 kS91-193QeomgbrdnBethesda North Hospital Monocytes Auto (Bld) [#/Vol]Ordered By: Tuan Haas on 68-91-6400Zyssrkwvb (Bld) [#/Vol]0.6 10*3/uL0.0-0.8[facility] HospitalMonocytes/100 WBC Auto (Bld)Ordered By: Tuan Haas on 82-01-4891Udeynezuv/100 WBC (Bld)9.6 %.[facility] HospitalNeutrophils Auto (Bld) [#/Vol]Ordered By: Tuan Haas on 68-68-1050Xxecghoqtun (Bld) [#/Vol]4.1 10*3/uL1.8-7.7FOhio State Harding HospitalNeutrophils/100 WBC Auto (Bld)Ordered By: Tuan Haas on 09-16-2022 Neutrophils/100 WBC (Bld)61.1 %.[facility] HospitalNo Panel InformationOrdered By: Tuan Haas on 03-74-6023Dssxhbyiw GFR ()> 60 mL/MinBethesda North HospitalComment on above:GFR estimated reference range: According to KDOQI guidelines, <60 ml/min/1.73m2 is sufficient todiagnose a patient with chronic kidney disease.Pharmacy Creatinine Clearance (ChemN/[facility] Community HospitalNucleated erythrocytes [Presence] in Blood by Automated countOrdered By: Tuan Haas on 15-07-7493Eqqqjyrsw RBC Auto Ql (Bld)0.1 /100{WBC}0-0.5FOhio State Harding HospitalPlatelet mean volume Auto (Bld) [Entitic vol]Ordered By: Tuan Haas on 19-03-4759Jjzrbxap mean volume (Bld) [Entitic vol]7.9 fL6.3-10.7FOhio State Harding HospitalPlatelets [#/volume] in Blood by Automated countOrdered By: Tuan Haas on 09-16-2022 Platelets (Bld) [#/Vol]335 10*3/zRQzvcdl872-854 10*3/uLBethesda North HospitalProtein [Mass/volume] in Serum or PlasmaOrdered By: Tuan Haas on 32-03-3440Qrtbwrn [Mass/Vol]7.2 g/dL6.1-7.9[facility] Rheumatoid Factoron 08-53-3211Igssifyuro Factor<10.0<14.0Noeastern missouri state hospital [employer] Other Serum or plasma alanine aminotransferase measurement without P-5'-P (enzymatic activiOrdered By: Tuan Haas on 63-54-8132HJB No additional P-5'-P [Catalytic activity/Vol]23 U/Q21-45XghlmjmhuMercy Health St. Elizabeth Youngstown Hospitalerum or plasma albumin/globulin mass ratioOrdered By: Tuan Haas on 78-06-2122Uaxvupv/Globulin [Mass ratio]1.3 {ratio}[facility] Hospitalerum or plasma alkaline phosphatase measurement (enzymatic activity/volume)Ordered By: Tuan Haas on 10-88-3876XNF [Catalytic activity/Vol] 64 U/IHmwwrf20-71 U/[facility] Hospitalerum or plasma anion gap determinationOrdered By: Tuan Haas on 54-10-5656Kjkqy gap [Moles/Vol]10.0 mmol/L6.0-15.0[facility] Hospitalerum or plasma aspartate aminotransferase measurement (enzymatic activity/volume)Ordered By: Tuan Haas on 45-73-5278BCO [Catalytic activity/Vol]17 U/UQzkxwm22-10 U/[facility] Hospitalerum or plasma calcium measurement (mass/volume)Ordered By: Tuan Haas on 03-03-2554Qorbtms [Mass/Vol]9.5 mg/dL8.2-10.2FHolmes County Joel Pomerene Memorial Hospitalerum or plasma chloride measurement (moles/volume)Ordered By: Tuan Haas on 10-86-6657Avaxhxiu [Moles/Vol]107 mmol/TOnebji83-676 mmol/[facility] Hospitalerum or plasma glucose measurement (mass/volume)Ordered By: Tuan Haas on 53-53-9251Snrulia [Mass/Vol]94 mg/iTMfaedv16-741 mg/dLBethesda North HospitalComment on above:ADA recommended reference rangeRandom Glucose Reference Range is dependent on time and content of last meal. Glucose of more than 200 mg/dL in a nonstressed, ambulatory subject supports the diagnosisof Diabetes Mellitus.Serum or plasma high density lipoprotein (HDL) cholesterol measurementOrdered By: Tuan Haas on 51-41-7339Zkijyqtqusv in HDL [Mass/Vol]42 mg/bYLngfmd24-62 mg/dLBethesda North HospitalComment on above:HDL CHOL ATP-III CLASSIFICATION Cardiovascular RiskHDL > or equal to 60 mg/dL LOWHDL < 40 mg/dL HIGHSerum or plasma potassium measurement (moles/volume) Ordered By: Tuan Haas on 31-66-6284Wtqxmjvud [Moles/Vol]4.1 mmol/L3.5-5.[address] [facility] Hospitalerum or plasma sodium measurement (moles/volume)Ordered By: Tuan Haas on 54-86-2067Eqxuyt [Moles/Vol]136 mmol/L Yhimjk385-029 mmol/[facility] Hospitalerum or plasma total bilirubin measurement (mass/volume)Ordered By: Tuan Haas on 32-92-3968Zcefennno [Mass/Vol]0.3 mg/dL0.3-1.2FHolmes County Joel Pomerene Memorial Hospitalerum or plasma total carbon dioxide measurement (moles/volume)Ordered By: Tuan Haas on 72-90-2492YX1 [Moles/Vol]23.1 mmol/L22.0-30.0[facility] Serum or plasma total cholesterol/high density lipoprotein (HDL) cholesterol mass ratOrdered By: Tuan Haas on 65-46-4415Bvbmizfjmyt.total/Cholesterol in HDL [Mass ratio]3.7 {ratio}<5.0[facility] Hospitalerum or plasma urea nitrogen measurement (mass/volume)Ordered By: Tuan Haas on 52-25-6620Gbni nitrogen [Mass/Vol]11 mg/dLNormal9-23 mg/dLBethesda North Hospital Serum or plasma uric acid measurement (mass/volume)Ordered By: Tuan Haas on 80-41-1566Nxbmj [Mass/Vol]5.4 mg/dL2.6-7.2FSt. Mary's [facility] DL <= 0.005 mIU/L QnOrdered By: Tuan Haas on 36-51-2564SFL Qn0.85 m[IU]/L 0.45-5.33[facility] HospitalThyroid Stimulating Hormoneon 58-34-9873YCF Qn0.88014523555 m[IU]/LNormal0.45-5.33 u[iU]/mLNorth [employer] Other Triglyceride [Mass/volume] in Serum or PlasmaOrdered By: Tuan Haas on 09-16-6508Jomoygxrdwlx [Mass/Vol]96 mg/gG49-685CvelufopkBethesda North HospitalComment on above:TRIG ATP III CLASSIFICATIONTRIG less than 150 mg/dL NormalTRIG 150-199 mg/dL Borderline highTRIG 200-500 mg/dL High TRIG greater than 500 mg/dL Very highStandard traceable to the Center for Disease Conrtrol and Prevention (CDC) test method.Uric Acidon 67-77-9778Mmegg [Mass/Vol]5.5387983 mg/dLNormal2.6-7.2 mg/dLNoeastern missouri state hospital [employer] Other WBC Auto (Bld) [#/Vol]Ordered By: Tuan Haas on 97-28-5981PTM (Bld) [#/Vol]6.7 10*3/uL3.8-11.6FOhio State Harding Hospital CHEMISTRYOrdered By: SYSTEM SYSTEM on 78-29-0773LCC.beta subunit Qn817 m[IU]/mL High1 - 3 mIU/mLINTEGRIS [facility] [place] RemisolBLOOD BANKOrdered By: Raegan Esqueda on 13-33-9567KXYP Gel InterpNegative (06/17/22 12:35 PM)NormalINTEGRIS [facility] [place] BB SubsectionCHEMISTRYOrdered By: SYSTEM SYSTEM on 84-74-7326DXR.beta subunit Qn96 m[IU]/mLHigh1 - 3 mIU/mLFTMC Remisol Progesterone [Mass/Vol]5.40 ng/mLInvalid Interpretation CodeFTMC Remisol HEMATOLOGYOrdered By: Bridgett Steven on 23-39-0129Gegqwndmbwo distribution width (RBC) [Ratio]16.0 %High10.9 - 14.2 %[facility] HemeAutoSSHematocrit (Bld) [Volume fraction]32.6 %Low34.0 - 46.0 %[facility] HemeAutoSSHemoglobin (Bld) [Mass/Vol]10.5 g/dLLow12.0 - 16.0 gm/dLFTMC HemeAutoSSMCH (RBC) [Entitic mass] 23.8 pgLow27.0 - 34.0 pgFTMC HemeAutoSSMCHC (RBC) [Mass/Vol]32.3 g/uPRputrx81.4 - 36.0 gm/dLFTMC HemeAutoSSMCV (RBC) [Entitic vol]73.6 fLLow80.0 - 100.0 fLFTMC HemeAutoSSPlatelet mean volume (Bld) [Entitic vol]8.2 fLNormal6.4 - 10.8 fLFTMC HemeAutoSSPlatelets (Bld) [#/Vol]283.0 E9/AWyansn062.0 - 500.0 E9/LFTMC HemeAutoSSRBC (Bld) [#/Vol]4.4 E12/LNormal4.3 - 5.9 E12/LFTMC HemeAutoSSComment on above:Result Comment: Slide reviewed by BC.WBC corrected for nucl RBC Auto (Bld) [#/Vol]4.5 E9/LNormal4.0 - 11.0 E9/LFTMC HemeAutoSSMICRO OTHER TESTS Ordered By: Steph William on 90-58-1908Bvvex COV Int NEG CtlPass (06/16/22 4:27 PM)NormalFT Man SeroRapid COV Int POS CtlPass (06/16/22 4:27 PM)NormalFT Man SeroS. pyogenes Ag IA.rapid Ql (Throat)Negative (06/16/22 4:27 PM)NormalNegativeFT Man SeroSARS-CoV+SARS-CoV-2 (COVID-19) Ag IA.rapid Ql (Resp)Not Detected (06/16/22 4:27 PM)NormalNot DetectedINTEGRIS [facility] [place] Man SeroSEROLOGYOrdered By: Steph William on 68-74-8511DEG.beta subunit (U) [Moles/Vol]Positive (06/16/22 4:31 PM)NormalINTEGRIS [facility] [place] Man SeroURINALYSISOrdered By: Steph William on 04-83-6610Thxxuqito Ql (U)Negative (06/16/22 4:31 PM)NormalNegativeINTE[facility] [place] UA Auto SSClarity (U)Clear (06/16/22 4:31 PM)NormalClearFTMC UA Auto SSColor (U)Yellow (06/16/22 4:31 PM)NormalYellowINTEGRIS [facility] [place] UA Auto SSEpithelial cells.squamous LM.HPF (Urine sed) [#/Area]5-8 /HPFNormal0-2/HPFINTEGRIS COMM[facility] [place] UA Auto SSGlucose Test strip (U) [Mass/Vol]Negative (06/16/22 4:31 PM)NormalNegativeINTEGR[facility] [place] UA Auto SSHemoglobin Ql (U)Negative (06/16/22 4:31 PM)NormalNegativeINTEGR[facility] [place] UA Auto SSKetones (U) [Mass/Vol]Negative (06/16/22 4:31 PM)NormalNegativeINTEGR[facility] [place] UA Auto SSLithium.plasma/[place].RBC (Bld) [Mass ratio]0-3 /HPFNormal0-3/HPFINTEGRIS [facility] [place] UA Auto SSNitrite Ql (U)Negative (06/16/22 4:31 PM)NormalNegativeINTEGRIS [facility] [place] UA Auto SSpH (U)5.5 *NA* (06/16/22 4:31 PM)Invalid Interpretation Code5.0 - 9.0[facility] [place] UA Auto SSProtein (U) [Mass/Vol]Negative (06/16/22 4:31 PM)NormalNegativeINTEGRIS [facility] [place] UA Auto SSSpecific gravity (U) [Rel density]>=1.030 *NA* (06/16/22 4:31 PM)Invalid Interpretation Code1.005 - 1.030[facility] [place] UA Auto SSUA Spec DescClean Catch (06/16/22 4:31 PM)NormalINTEGRIS [facility] [place] Auto SSUrobilinogen Qn (U)0.7297904 {Enedelia'U}/dLNormal0.0 - 1.0 EU/dLINTEGRIS [facility] [place]A Auto SSWBC Auto Ql (U)Negative (06/16/22 4:31 PM)NormalNegativeINTEGRIS [facility] [place] UA Auto SSWBC LM.HPF (Urine sed) [#/Area]0- 5 /HPFNormal0-5/HPFINTEGRIS [facility] [place] Auto SSActivated partial thromboplastin time (aPTT) in platelet poor plasma by coagulation aOrdered By: Tuan Haas on [id number] Coag (PPP) [Time]37.2 s25.1-36.5FOhio State Harding HospitalCoagulation Profileon [id number] Coag (Bld) [Time]37.200 sHigh25.1-36.5 AdECN Other f5 gene mutations found [Identifier] in Blood or Tissue by Molecular genetics methodOrdered By: Tuan Haas on [id number] gene targeted mutation analysis [employer] Nom (Bld/Tiss)See comment.[facility] North HospitalComment on above:Result: c.1601G>A (p.Hrm549Won) - Not Detected This result is not associated with an increased risk for venous thromboembolism. See Additional Clinical Information and Comments. Additional Clinical Information: Venous thromboembolism is a multifactorial disease influenced by genetic, environmental, and circumstantial risk factors. The c.1601G>A (p. Pii365Dky) variant in the F5 gene, commonly referred [...] c.*97G>A variant and Factor V Leiden (PMID: 70767516). Additional risk factors include but are not [...] health care providers to discuss results at [phone] (2170). Test Details: Variant Analyzed: c.1601G>A (p. Gzn828Plg), referred to as Factor V Leiden Methods/Limitations: [...] developed and its performance characteristics determined by [employer]. It has not been cleared or approved by the Food and Drug Administration. References: Jame Greer, Dang HENDERSON, Vince R, Yenni WW, Devaughn JH; ACMG Professional Practice and Guidelines Committee. Addendum: [employer] consensus statement on factor V Leiden mutation testing. [employer] Med. 2020Nov 03. doi: 10.1038/w90517-490-77290-s. PMID: 66529619. Earline MORAN. Factor V Leiden Thrombophilia. 1998January 12 [Updated 2017Sep 04]. In: Baldev MP, Denis HH, Danny RA, et al., editors. Jillian(R) [Internet]. [place] ([place]): [facility]; 3524-9230. Available from: https://www.ncbi.nlm.nih.gov/books/GJH2413/ Alek Greer, Dang HENDERSON, Ivan X, Octaviano B, Lenny EB, Kaylin P, Elliott CS; [employer] Photo Engraver Committee. Venous thromboembolism laboratory testing (factor V Leiden and factor II c.*97G>A), 2018 update: a technical standard of the [employer] ([employer]MG). [employer] Med. 2018 Aug;20(12):9657-8281. doi: 10.1038/l10311-558-8878-b. Epub 2017Jun 05. PMID: 76429022. Kristie Barrios, PhD, FACMG Emelia Carlisle, PhD Bhavesh Phipps, PhD, FACMG Villa Daly, PhD, FACMG Jasen Irizarry, PhD, FAC Hu Dunlap, PhD, FAC Jaelyn Carreon, PhD, FAC Kay Little, PhD, FAC Performed at: [facility] [address] [facility], [place], [place] [id number] Shipping Manager: Annmarie Bowen [facility], Phone: [phone] - Coagulation Ordered By: Tuan Haas on 57-83-3248FP Coag (PPP) [Time]11.5 s9.0-12.9[facility] HospitalPlatelet poor plasma international normalized ratio (INR) by coagulation assay (relatOrdered By: Tuan Haas on 55-15-6972ZZU Coag (PPP) [Relative time]1.0 {INR}[facility] HospitalComment on above:INR Therapeutic Range A) Pre- and Peroperative OAT started two weeks before surgery. NOT HIP SURGERY: 1.5 - 2.5 HIP SURGERY: 2 - 3 B) Primary and secondary prevention of venous THROMBOSIS: 2 - 3 C) Active venous thrombosis, pulmonary embolism and prevention of recurrent venous thrombosis: 2 - 3 D) Prevention of arterial thromboembolism including patients with mechanical heart valves: 3 - 4.5XR wrist RT min 3V*on 50-56-4286YO wrist RT min 3V*[facility] [employer] Other xr wrist RT min 3V*[facility] [employer] Other xr wrist RT min 3V*[address] [place] [address] [employer] Other XR wrist RT min 3V*DEBBIE Lau 19597HjfhnNav[facility] Health [employer] Other XR wrist RT min 3V*XRay ReportNavos Health EZBOB Other XR wrist RT min 3V*SignedNavos Health EZBOB Other XR wrist RT min 3V*Patient: Kassie Crawford MR#: [id number] Health EZ[employer]OB Other XR wrist RT min 3V*[id number] [employer] Other XR wrist RT min 3V*: 2000 Acct:[id number] [facility] [employer] Other XR wrist RT min 3V*Age/Sex: 21 / F ADM Date: 04/04/22 [facility] [employer] Other XR wrist RT min 3V*Loc: XD Room: Type: [facility] EZ[employer] Other XR wrist RT min 3V*Attending Dr: Tuan Haas [facility] [employer] Other XR wrist RT min 3V*Copies to: Tuan Haas,[facility] [employer] Other XR wrist RT min 3V*Ordering Provider: Tuan Haas, [facility] [employer] Other XR wrist RT min 3V*Date of Service: 04/04/22[place] [employer] Other XR wrist RT min 3V* XR/XR hand RT min 3V*: Wrist pain, [facility] [employer] Other XR wrist RT min 3V*([id number]) XR/XR wrist RT min 3V*: Wrist pain, [facility] [employer] Other XR wrist RT min 3V*RIGHT HAND - 3 views, right wrist 4 viewsNoeastern missouri state hospital [employer] Other XR wrist RT min 3V*REASON FOR EXAM: Right distal forearm and wrist pulling sensation.[employer] Other XR wrist RT min 3V*COMPARISON: [facility] [employer] Other XR wrist RT min 3V*FINDINGS:[employer] Other XR wrist RT min 3V*No focal soft tissue abnormality. No acute bony process. Joint spaces are maintainedNoeastern missouri state hospital [employer] Other XR wrist RT min 3V* XR/XR hand RT min 3V*[employer] Other XR wrist RT min 3V*IMPRESSION:[employer] Other XR wrist RT min 3V*NO ACUTE BONY INJURY.[employer] Other XR wrist RT min 3V*Impression dictated by: Bhavesh Fallon Jr., D.OJenn04/04/2022 12:59 PMNray [facility] hospital [employer] Other XR wrist RT min 3V*Dictation Location: [place] [address] [employer] Other xr wrist RT min 3V*Transcribed By: PWS 04/04/22 [facility] [employer] Other XR wrist RT min 3V*Dictated By: Bhavesh Fallon Jr, DO 04/04/[address] [place] [address] [employer] Other xr wrist RT min 3V*Signed By:[employer] Other xr wrist RT min 3V*04/04/22 [facility] HospitalREG[facility] Other CHEMISTRYOrdered By: SYSTEM SYSTEM on 64-68-9759Fetv T4 index Calc [Mass/Vol]8.22 ng/dLNormal5.90 - 13.10 ng/dLFTMC RemisolProlactin [Mass/Vol]12.98 ng/mLNormal3.34 - 26.72 ng/mLFT RemisolT4 [Mass/Vol]8.1 ug/dL Normal4.6 - 9.1 mcg/dLFTMC RemisolT4 uptake [Mass/Vol]40.6 %Hiodbg34.0 - 48.4 % [facility] RemisolTSH Qn0.86 m[IU]/LNormal0.34 - 5.60 mcIU/mLINTEGRIS COMM[facility]ITY [facility] [place] RemisolCOAGULATION Ordered By: Charmaine Galindo on 56-41-8192aRAX Coag (PPP) [Time]38.0 sHigh25.1 - 36.5 second(s)[facility] Auto CoagINR Coag (PPP) [Relative time]1.0 {INR}Invalid Interpretation CodeINTEGRIS COMMUNITY [facility] [place] Auto CoagPT Coag (PPP) [Time]11.8 fNfplaj12.2 - 12.9 second(s)[facility] Auto CoagReference Laboratory TestingOrdered By: Deanna Sheehan on 35-35-2647Vvyk Gbgo023805Djnkepu Interpretation CodeINTEGRIS COMM[facility]ITY [facility] [place] SendOutsSSTest Code [id number] Interpretation CodeINTEGRIS COMM[facility]ITY [facility] [place] SendOutsSSTest [id number] Interpretation CodeINTEGRIS [facility] [place] SendOutsSSTest NameChromosome AnalInvalid Interpretation CodeINTEGRIS [facility] [place] SendOutsSSTest NamePAL-1Invalid Interpretation CodeINTEGRIS [facility] [place] SendOutsSSTest NamePAL-1 AGInvalid Interpretation CodeINTEGRIS [facility] [place] SendOutsSSURINALYSISOrdered By: Ana Paula Davison on 70-93-9486Pjdaoxwi LM Ql (Urine sed)Trace /HPFNormalTrace/HPFINTEGRIS [facility]ITY [facility] [place] UA Auto SSBilirubin Ql (U)Negative (03/10/22 3:13 PM)NormalNegativeINTEGRIS [facility] [place] UA Auto SSClarity (U)SL CLOUDYInvalid Interpretation CodeINTEGRIS COMM[facility]ITY [facility] [place] UA Auto SSColor (U)Yellow (03/10/22 3:13 PM)NormalYellowFT UA Auto SSEpithelial cells.squamous LM.HPF (Urine sed) [#/Area]9-10 /HPFNormal0-2/HPFFTMC UA Auto SSGlucose Test strip (U) [Mass/Vol]Negative (03/10/22 3:13 PM)NormalNegativeINTEGRIS [facility] [place] UA Auto SSHemoglobin Ql (U)3+ *ABN* (03/10/22 3:13 PM)Invalid Interpretation CodeNegativeINTEGRIS [facility] [place] UA Auto SSKetones (U) [Mass/Vol]Negative (03/10/22 3:13 PM)NormalNegativeINTEGRIS [facility] [place] UA Auto SSLithium.plasma/Woodlands.RBC (Bld) [Mass ratio]>30 /HPFInvalid Interpretation Code0-3/HPFINTEGRIS COMMUNITY [facility] [place] UA Auto SSNitrite Ql (U)Negative (03/10/22 3:13 PM)NormalNegativeINTEGRIS [facility] [place] UA Auto SSpH (U)6.5 *NA* (03/10/22 3:13 PM)Invalid Interpretation Code5.0 - 9.0[facility] [place] UA Auto SSProtein (U) [Mass/Vol]Negative (03/10/22 3:13 PM)NormalNegativeINTEGRIS [facility] [place] UA Auto SSSpecific gravity (U) [Rel density] 1.020 *NA* (03/10/22 3:13 PM)Invalid Interpretation Code1.005 - 1.030[facility] [place] UA Auto SSUA Spec DescClean Catch (03/10/22 3:13 PM)NormalINTEGRIS [facility]ITY [facility] [place] UA Auto SSUrobilinogen Qn (U)0.1476859 {Enedelia'U}/dLNormal0.0 - 1.0 EU/dLINTEGRIS [facility]ITY [facility] [place] UA Auto SSWBC Auto Ql (U)Trace *ABN* (03/10/22 3:13 PM)Invalid Interpretation CodeNegativeINTEGRIS [facility] [place] UA Auto SSWBC LM.HPF (Urine sed) [#/Area]0-5 /HPFNormal0-5/HPFINTEGRIS COMM[facility]ITY [facility] [place] UA Auto SSCHEMISTRYOrdered By: SYSTEM SYSTEM on 84-81-3443Ptfgaib [Mass/Vol]3.6 g/dLNormal3.3 - 5.0 gm/dLINTEGRIS [facility] [place] RemisolAlbumin/Globulin [Mass ratio]0.9 {ratio}Low1.1 - 2.2FTMC RemisolALP [Catalytic activity/Vol]54 [iU]/vWyarud10 - 98 Int._Unit/LFTMC RemisolALT No additional P-5'-P [Catalytic activity/Vol]27 [iU]/dNormal6 - 46 Int._Unit/LFTMC RemisolAnion gap [Moles/Vol]13 mmol/LNormal6 - 16 mEq/LFTMC RemisolAST [Catalytic activity/Vol]23 [iU]/dNormal5 - 43 Int._Unit/LFTMC RemisolBilirubin [Mass/Vol]0.5 mg/dLNormal0.0 - 1.1 mg/dLFTMC RemisolBilirubin.direct [Mass/Vol] mg/dLNormal0.1 - 0.4 mg/dLFTMC RemisolBilirubin.indirect [Mass or moles/Vol] Unable to Calculate mg/dLInvalid Interpretation Code0.1 - 0.9 mg/dLFTMC Remisol Calcium [Mass/Vol]8.9 mg/dLNormal8.9 - 11.1 mg/dLFTMC RemisolChloride [Moles/Vol]100 mmol/KQgj335 - 111 mmol/LFTMC RemisolCO2 [Moles/Vol]20 mmol/LLow 21 - 31 mmol/LFTMC RemisolCreatinine [Mass/Vol]0.7 mg/dLNormal0.5 - 1.3 mg/dL FT RemisolGFR/1.73 sq M.predicted among blacks MDRD (S/P/Bld) [Vol rate/Area] mL/min/1.73 x1Jhtjer>=59mL/min/1.73 m2FT Chem SGFR/1.73 sq M.predicted among non-blacks MDRD (S/P/Bld) [Vol rate/Area]mL/min/1.73 z8Zgrncs>=59mL/min/1.73 m2 [facility] Chem SGlobulin (S) [Mass/Vol]3.9 g/dLNormal1.4 - 4.0 gm/dLFTMC Remisol Glucose [Mass/Vol]92 mg/uVTphtkf46 - 199 mg/dLFTMC RemisolLipase [Catalytic activity/Vol]26 U/JAvawsi27 - 58 unit/LFTMC RemisolPotassium [Moles/Vol]3.2 mmol/LLow3.5 - 5.3 mmol/LFTMC RemisolProtein [Mass/Vol]7.5 g/dLNormal6.0 - 7.8 gm/dLFTMC RemisolSodium [Moles/Vol]130 mmol/TCah371 - 145 mmol/LFTMC RemisolUrea nitrogen [Mass/Vol]8 mg/dLNormal5 - 21 mg/dLFTMC RemisolUrea nitrogen/Creatinine [Mass ratio]11 mg/tiWudthb75 - 20FTMC RemisolHEMATOLOGY Ordered By: Ana Paula Davison on 97-91-5340Vemyldysxxnm Ql (Bld)Present (02/05/22 7:11 PM)NormalFTMC HemeManSSErythrocyte distribution width (RBC) [Ratio] 15.3 %High10.9 - 14.2 %[facility] HemeAutoSSHematocrit (Bld) [Volume fraction]35.0 % Kmocdo77.0 - 46.0 %[facility] HemeAutoSSHemoglobin (Bld) [Mass/Vol]11.3 g/dLLow12.0 - 16.0 gm/dLFTMC HemeAutoSSHypochromia Auto Ql (Bld)Present (02/05/22 7:11 PM)NormalFTMC HemeManSSMCH (RBC) [Entitic mass]24.8 pgLow27.0 - 34.0 pgFTMC HemeAutoSSMCHC (RBC) [Mass/Vol]32.4 g/pUDtgqpu77.4 - 36.0 gm/dLFTMC HemeAutoSSMCV (RBC) [Entitic vol]76.5 fLLow80.0 - 100.0 fLFTMC HemeAutoSS Microcytes Ql (Bld)Present (02/05/22 7:11 PM)NormalFTMC HemeManSSMorphology Leopoldo (Bld) [Interp]See Morphology (02/05/22 7:11 PM)NormalFTMC HemeManSSPlatelet mean volume (Bld) [Entitic vol]7.9 fLNormal6.4 - 10.8 fLFTMC HemeAutoSSPlatelets (Bld) [#/Vol]237.0 E9/ZYgtrji025.0 - 500.0 E9/LFTMC HemeAutoSSRBC (Bld) [#/Vol]4.6 E12/LNormal4.3 - 5.9 E12/LFTMC HemeAutoSSWBC corrected for nucl RBC Auto (Bld) [#/Vol]5.2 E9/LNormal4.0 - 11.0 E9/LFTMC HemeAutoSSHEMATOLOGYOrdered By: SYSTEM SYSTEM on 02-05-2022 Basophils/100 WBC (Bld)0.4 %Normal0.0 - 2.0 %[facility] HemeAutoSSBasophils/Leukocytes Auto (Bld) [Pure # fraction]0.0 E9/LNormal0.0 - 0.2 E9/LFTMC HemeAutoSS Eosinophils/100 WBC (Bld)0.9 %Normal0.0 - 8.0 %[facility] HemeAutoSS Eosinophils/Leukocytes Auto (Bld) [Pure # fraction]0.0 E9/LNormal0.0 - 0.5 E9/L [facility] HemeAutoSSLymphocytes/100 WBC (Bld)5.7 %Low14.0 - 50.0 %[facility] HemeAutoSS Lymphocytes/Leukocytes Auto (Bld) [Pure # fraction]0.3 E9/LLow1.0 - 4.0 E9/LFTMC HemeAutoSSMonocytes/100 WBC (Bld)10.2 %Normal4.0 - 14.0 %[facility] HemeAutoSS Monocytes/Leukocytes Auto (Bld) [Pure # fraction]0.5 E9/LNormal0.2 - 1.0 E9/L [facility] HemeAutoSSNeutrophils/100 WBC (Bld)82.8 %High36.0 - 75.0 %[facility] HemeAutoSS Neutrophils/Leukocytes Auto (Bld) [Pure # fraction]4.3 E9/LNormal2.0 - 7.5 E9/L [facility] HemeAutoSSMICRO OTHER TESTSOrdered By: Allison Johnston on 02-05-2022 Influenzae A AgNegative (02/05/22 7:25 PM)NormalNegativeFT Man SeroInfluenzae B AgNegative (02/05/22 7:25 PM)NormalNegativeFT Man SeroRapid COV Int NEG CtlPass (02/05/22 7:25 PM)NormalINTEGRIS [facility] [place] Man SeroRapid COV Int POS CtlPass (02/05/22 7:25 PM)NormalINTEGRIS [facility] [place] Man SeroSARS-CoV+SARS-CoV-2 (COVID-19) Ag IA.rapid Ql (Resp)Detected 1 *ABN* (02/05/22 7:25 PM)Invalid Interpretation CodeNot DetectedINTEGRIS [facility] [place] Man SeroComment on above:Result Comment: Results Called To Celia Avila/BRIJESH By Zuleyma Johnston And Read Back For Confirmation On 02/05/2022 19:56:09 EDT.URINALYSISOrdered By: Allison Johnston on 81-09-9919Hhdkmdgw LM Ql (Urine sed)Trace /HPFNormalTrace/HPFFT UA Auto SSBilirubin Ql (U)Negative (02/05/22 8:30 PM)NormalNegativeINTEGRIS [facility] [place] UA Auto SSClarity (U)Slightly Cloudy *ABN* (02/05/22 8:30 PM)Invalid Interpretation CodeClearFTM UA Auto SSColor (U)Yellow (02/05/22 8:30 PM)NormalYellowINTEGRIS [facility] [place] UA Auto SSEpithelial cells.squamous LM.HPF (Urine sed) [#/Area]9-10 /HPFNormal0-2/HPFINTEGRIS [facility]ITY [facility] [place] UA Auto SSGlucose Test strip (U) [Mass/Vol]Negative (02/05/22 8:30 PM)NormalNegativeINTEGRIS [facility] [place] UA Auto SSHemoglobin Ql (U)Negative (02/05/22 8:30 PM)NormalNegativeINTEGR[facility] [place] UA Auto SSKetones (U) [Mass/Vol]1+ *ABN* (02/05/22 8:30 PM)Invalid Interpretation CodeNegativeINTEGRIS [facility] [place] UA Auto SS [place].plasma/[place].RBC (Bld) [Mass ratio]0-3 /HPFNormal0-3/HPFINTEGRIS COMM[facility]ITY [facility] [place] UA Auto SSNitrite Ql (U)Negative (02/05/22 8:30 PM)NormalNegativeINTEGRIS [facility] [place] UA Auto SSpH (U)8.0 *NA* (02/05/22 8:30 PM)Invalid Interpretation Code5.0 - 9.0[facility] [place] [facility] UA Auto SSProtein (U) [Mass/Vol]Negative (02/05/22 8:30 PM)NormalNegativeINTEGRIS [facility] [place] UA Auto SSSpecific gravity (U) [Rel density] 1.010 *NA* (02/05/22 8:30 PM)Invalid Interpretation Code1.005 - 1.030[facility] [place] [facility] UA Auto SSUA Spec DescClean Catch (02/05/22 8:30 PM)NormalINTEGRIS [facility]ITY [facility] [place] UA Auto SSUrobilinogen Qn (U)0.9485738 {Enedelia'U}/dL Normal0.0 - 1.0 EU/dLINTEGRIS COMM[facility]ITY [facility] [place] UA Auto SSWBC Auto Ql (U)Trace *ABN* (02/05/22 8:30 PM)Invalid Interpretation CodeNegativeINTEGRIS [facility] [place] UA Auto SSWBC LM.HPF (Urine sed) [#/Area]0-5 /HPFNormal0-5/HPFMC UA Auto SSReference Laboratory TestingOrdered By: Nikole Franco on 08-76-1273Wdqn [id number] Interpretation CodeINTEGRIS COMM[facility]ITY [facility] [place] SendOutsSSTest NameIG PAP HPV GENOInvalid Interpretation CodeINTEGRIS [facility]ITY [facility] [place] SendOutsSSBLOOD BANKOrdered By: Ana Paula Davison on 08-49-7179EZW/Rh Interp PositiveInvalid Interpretation CodeINTEGRIS [facility]ITY [facility] [place] BB SubsectionABSC Gel InterpNegative (01/14/22 4:50 PM)NormalINTEGRIS [facility] [place] BB SubsectionHEMATOLOGYOrdered By: Ana Paula Davison on 76-49-2514Vzmiuqldvbk distribution width (RBC) [Ratio]15.1 %High10.9 - 14.2 % [facility] HemeAutoSSHematocrit (Bld) [Volume fraction]32.3 %Low34.0 - 46.0 %[facility] HemeAutoSSHemoglobin (Bld) [Mass/Vol]10.8 g/dLLow12.0 - 16.0 gm/dLFTMC HemeAutoSSMCH (RBC) [Entitic mass]25.7 pgLow27.0 - 34.0 pgFTMC HemeAutoSSMCHC (RBC) [Mass/Vol]33.4 g/aEYewwbk15.4 - 36.0 gm/dLFTMC HemeAutoSSMCV (RBC) [Entitic vol]77.1 fLLow80.0 - 100.0 fLFTMC HemeAutoSSPlatelet mean volume (Bld) [Entitic vol]7.9 fLNormal6.4 - 10.8 fLFTMC HemeAutoSSPlatelets (Bld) [#/Vol] 289.0 E9/SBazfyr863.0 - 500.0 E9/LFTMC HemeAutoSSRBC (Bld) [#/Vol]4.2 E12/LLow 4.3 - 5.9 E12/LFTMC HemeAutoSSWBC corrected for nucl RBC Auto (Bld) [#/Vol]7.3 E9/LNormal4.0 - 11.0 E9/LFTMC HemeAutoSSCOVID + FLU Quick Testingon 09-11-2021 SARS-CoV-2 (COVID-19) RNA SAMIR+probe Ql (Unsp spec)NegativeNoeastern missouri state hospital [employer] Other COVID + FLU Quick TestingNegativeNoeastern missouri state hospital [employer] Other [phone]-69 PCR ([facility]VDLAWR[facility])on 73-48-1961ODRX-CoV-2 (COVID- 19) RNA SAMIR+probe Ql (Unsp spec)Not detectedNormalNOT DETECTEDThe Mercy HospitalComment on above:Result Comment: This test is not yet approved or cleared by the [place] FDA. When there are no FDA-approved or cleared tests available, and other criteria are met, FDA can make tests available under an emergency access mechanism called an Emergency Use Authorization (EUA). The EUA for this test is supported by the [employer] of Health and Human Service's (HHS's) declaration [...] of clinical signs and symptoms consistent with SARS-CoV-2.Performed By: #### CVDTB #### [facility] [address] [place] [address] Dr. Kiran Peterson Vital Signs Date TimeVital SignValuePerforming TnjqpfyadFyfrumgb35-25-4491 11:24-0500 Diastolic blood yknoiptz80 mm[Hg]Tuan Waldo DO Work Phone: [facility]11-05-2025 11:24-0500 Systolic blood ldbfixgy354 mm[Hg]Tuan Haas DO Work Phone: [facility]11-05-2025 11:24-0500 Body igmnaz419.18 cmTuan Daviss DO Work Phone: [facility]11-05-2025 11:24-0500 Body mass index (BMI) [Ratio]45.7 kg/f0MmruhTuan Daviss DO Work Phone: [facility]11-05-2025 11:24-0500 Body vcbdsa150.44 kgTuan Daviss DO Work Phone: [facility]11-05-2025 11:24-0500 Heart rate61 /minTuan Daviss DO Work Phone: [facility]11-05-2025 11:24-0500 SaO2% (BldA) [Mass fraction]99 %Tuan Daviss DO Work Phone: [facility]09-25-2025 10:51-0400 Body cahwmf214.18 cmTuan Daviss DO Work Phone: [facility]09-25-2025 10:51-0400 Body mass index (BMI) [Ratio]45.7 kg/b2FldtdTuan Daviss DO Work Phone: [facility]09-25-2025 10:51-0400 Body asuiupxfgyv29.1 [degF]Tuan Daviss DO Work Phone: [facility]09-25-2025 10:51-0400 Body yrkzzr588.44 kgTuan Daviss DO Work Phone: [facility]09-25-2025 10:51-0400 Diastolic blood oaaohbkf92 mm[Hg]Tuan Daviss DO Work Phone: [facility]09-25-2025 10:51-0400 Heart rate61 /minTuan aDviss DO Work Phone: [facility]09-25-2025 10:51-0400 Respiratory rate16 /minTuan Haas DO Work Phone: [facility]09-25-2025 10:51-0400 SaO2% (BldA) [Mass fraction]98 %Tuan Haas DO Work Phone: [facility]09-25-2025 10:51-0400 Systolic blood obtfqzmh500 mm[Hg]Tuan Haas DO Work Phone: [facility]06-09-2025 14:53-0400 Body .2 cmBenjamin Murcek DO Work Phone: [facility] CenterTttehawbtv93-94-0722 14:53-0400Body mass index (BMI) [Ratio]44.17 kg/u8Alcqqzgr Murcek DO Work Phone: [phone] [place], [place] [address]Ivxynjtoag53-18-9869 14:53-0400Body .91 kgBenjamin Murcek DO Work Phone: [phone]-[facility] CenterFwjpfpwaya39-08-0154 09:01-0500Body .2 cmBenjamin Murcek DO Work Phone: [phone]-[facility] CenterSwedkyaoge48-01-5211 09:01-0500Body mass index (BMI) [Ratio]44.32 kg/u0Ucqcofeh Murcek DO Work Phone: [phone]-[facility] CenterPdzoexzwca54-11-7899 09:01-0500Body tvdwug863.37 kgBenjamin Murcek DO Work Phone: [phone]-[facility] CenterPocmwkeehl08-53-8968 14:58-0500Body weejbw810.2 cmBenjamin Murcek DO Work Phone: [phone] [place], [place] [address]Svbvtqgzrs41-06-7355 14:58-0500Body mass index (BMI) [Ratio]44.32 kg/o5Aucqjtdk Murcek DO Work Phone: [phone] [place], [place] [address]Rsiwcjxdgz73-72-5629 14:58-0500Body .37 kgBendimitri Thomas DO Work Phone: [facility] CenterTpndwndndg46-03-5823 09:19-0500Body psscur669.64 cmTuan Haas DO Work Phone: [facility]02-10-2025 09:19-0500 Body mass index (BMI) [Ratio]45.6 kg/a6IwknrTuan Daviss DO Work Phone: [facility]02-10-2025 09:19-0500 Body .36 kgTuan Daviss DO Work Phone: [phone] [place], [place] 4340802-10-2025 09:19-0500 Diastolic blood phxjysdr01 mm[Hg]Tuan Daviss DO Work Phone: [phone] [place], [place] 4340802-10-2025 09:19-0500 Heart rate76 /minTuan Daviss DO Work Phone: [phone] [place], [place] 4340802-10-2025 09:19-0500 Respiratory rate16 /minTuan Daviss DO Work Phone: [phone] [place], [place] 43[address]802-10-2025 09:19-0500 SaO2% (BldA) [Mass fraction]99 %Tuan Haas DO Work Phone: [phone]02-10-2025 09:19-0500 Systolic blood zewfjjrk793 mm[Hg]Tuanjerad Daviss DO Work Phone: [phone] [place], [place] 4340801-09-2025 14:50-0500 Body auhunb172.64 cmAngeljerad Daviss DO Work Phone: [phone] [place], [place] 4340801-09-2025 14:50-0500 Body mass index (BMI) [Ratio]46 kg/q8HrrvhTuan Daviss DO Work Phone: [phone]01-09-2025 14:50-0500 Body dtbnafsswhr53 [degF]Tuan Daviss DO Work Phone: [facility]01-09-2025 14:50-0500 Body anwqdj801.27 kgTuan Daviss DO Work Phone: [phone] [place], [place] 4340801-09-2025 14:50-0500 Diastolic blood enyfuzgq06 mm[Hg]Tuan Daviss DO Work Phone: [phone] [place], [place] 4340801-09-2025 14:50-0500 Heart rate88 /minAngelan Ryans DO Work Phone: [phone]01-09-2025 14:50-0500 Respiratory rate18 /minAngelan Ryans DO Work Phone: [phone]01-09-2025 14:50-0500 Systolic blood azqoogib954 mm[Hg]Tuan Daviss DO Work Phone: [phone])[address]12-04-2024 11:02-0500 Body kuzeww891.64 cmTuan Kuns DO Work Phone: 1(209)[address] [place], [place] 5864312-04-2024 11:02-0500 Body mass index (BMI) [Ratio]45.5 kg/p0Exgjy Kuns DO Work Phone: 1(927)[address]12-04-2024 11:02-0500 Body zygktz903.91 kgTuan Daviss DO Work Phone: 1(063)7-[address] [place], [place] 4340812-04-2024 11:02-0500 Diastolic blood gzepyxnz629 mm[Hg]Tuan Ryans DO Work Phone: 1(115)630-[address] [place], [place] 4340812-04-2024 11:02-0500 Heart rate79 /minAngelan Ryans DO Work Phone: 1(313)7-[address] [place], [place] 4340812-04-2024 11:02-0500 Respiratory rate18 /minAngelan Kuns DO Work Phone: 7(352)[address] [place], [place] 4340812-04-2024 11:02-0500 SaO2% (BldA) [Mass fraction]97 %Tuan Haas DO Work Phone: [facility]12-04-2024 11:02-0500 Systolic blood kzxbaits797 mm[Hg]Tuan Haas DO Work Phone: [facility]11-13-2024 12:15-0500 Hourly RoundingYou [facility]:Result Comment: verbal and written discharge instructions given. pt verbalized [id number] 11:30-0500Hourly RoundingYou Wilkerson [facility]:Result Comment: pt denies needs at this [id number] 10:30-0500Hourly RoundCarmelita [facility]:Result Comment: pt denies [id number] 09:31-0500Blood Pressure LocationJames Rhea [facility]11-13-2024 09:31-0500Body knaxbmlwwed62.06 [degF]You Wilkerson [facility]11-13-2024 09:31-0500 Diastolic blood eujjyycw03 mm[Hg]You Wilkerson [facility]11-13-2024 09:31-0500Heart rate93 /minJamarmes Rhea [facility]11-13-2024 09:31-0500Mean blood gatxhdji00 mm[Hg]You Wilkerson [facility]11-13-2024 09:31-0500 Promise to ReturnJames Rhea [facility]11-13-2024 09:31-0500 Respiratory rate16 /minJamarmes Rhea [facility]11-13-2024 09:31-0960SoA8% (BldA) [Mass fraction]100 %You Wilkerson [facility]11-13-2024 09:31-0500 Systolic blood pjbvsryp138 mm[Hg]You Wilkerson [address] [place], [place] 3377611-13-2024 08:30-0500 Promise to ReturnYou Wilkerson [address] [place], [place] 3377611-13-2024 07:30-0500 Promise to ReturnYou Wilkerson [address] [place], [place] 3377611-12-2024 19:59-0500Heart rate96 /minYou [facility]kerson [facility]11-12-2024 19:59-9817BnW6% (BldA) [Mass fraction]97 %You Wilkerson [facility]11-12-2024 19:57-0500Body qpyceaepiti72.52 [degF]You Wilkerson [facility]11-12-2024 19:57-0500 Diastolic blood gojzgkif31 mm[Hg]You Wilkerson [facility]11-12-2024 19:57-0500Mean blood zuvzlwqp52 mm[Hg]You Wilkerson [facility]11-12-2024 19:57-0500 Systolic blood mmwsejap618 mm[Hg]You Wilkerson [facility]11-12-2024 19:45-0500Blood Pressure LocationYou Wilkerson [facility]11-12-2024 19:45-0500 Respiratory rate18 /minJames Rhea [address] [place], [place] 3377611-12-2024 15:36-0500Blood Pressure LocationJames Rhea [facility]11-12-2024 15:36-0500Body aeujftzdtkg65.42 [degF]You Wilkerson [facility]11-12-2024 15:36-0500 Diastolic blood kirgwvch72 mm[Hg]You Wilkerson [facility]11-12-2024 15:36-0500Heart rate87 /minYou Wilkerson [facility]11-12-2024 15:36-0500Mean blood rflnwjzo06 mm[Hg]You Wilkerson [facility]11-12-2024 15:36-0500 Respiratory rate18 /minYou Wilkerson [facility]11-12-2024 15:36-0500 Systolic blood mm[Hg]You Wilkerson [facility]11-12-2024 11:10-0500Mean blood mytmciof746 mm[Hg]You Wilkerson [facility]11-12-2024 11:10-0500 Respiratory rate18 /minYou Wilkerson [facility]11-12-2024 07:36-0500Body dyqwcuqxunr67.88 [degF]You Wilkerson [facility]11-11-2024 19:14-2565LoA6% (BldA) [Mass fraction]96 %oYu Wilkerson [facility]11-11-2024 19:12-0500Body rojgcebjlht08.06 [degF]You Wilkerson [facility]11-11-2024 19:11-0500Mean blood kazmzwuc412 mm[Hg]You Wilkerson [facility]11-11-2024 17:46-0500Mean blood kytzoert92 mm[Hg]You Wilkerson [facility]11-11-2024 12:17-0500Body zxhuzntvqjy69.6 [degF]You Wilkerson [facility]11-06-2024 14:05-0500 Hourly RoundingJase Wilkerson [facility]Comment on above:Result Comment: monitors off; discharge instructions given with verbal understanding. 07-07-2024 12:52-0500Diastolic blood ektfwhco88 mm[Hg]You Wilkerson [facility]11-06-2024 12:52-0500Heart jpvg094 /minJase Wilkerson [facility]11-06-2024 12:52-0500Mean blood qqbiwbnz68 mm[Hg]You Wilkerson [facility]11-06-2024 12:52-0500 Respiratory rate18 /minYou Wilkerson [facility]11-06-2024 12:52-0500 Systolic blood eufxxfll250 mm[Hg]You Wilkerson [facility]04-03-2024 23:55-0400 Diastolic blood awngkbzy14 mm[Hg]Kaylinn Dokken [facility]04-03-2024 23:55-0400Heart rate77 /minKaylinn Dokken [facility]04-03-2024 23:55-0400Mean blood bxuvmzll81 mm[Hg]Kaylinn Dokken [address] [place], [place] 9711904-03-2024 23:55-0400 Respiratory rate18 /minKaylinn Dokken [address] [place], [place] 9711904-03-2024 23:55-2704KfR2% (BldA) [Mass fraction]98 %Kaylinn Dokken [address] [place], [place] 9711904-03-2024 23:55-0400 Systolic blood zixnscrb942 mm[Hg]Kaylinn Dokken [address] [place], [place] 9711904-03-2024 22:03-0400Body xdilfcxhtqi98.06 [degF]Kaylinn Dokken [address] [place], [place] 9711904-03-2024 22:03-0400 Diastolic blood htyvqshn06 mm[Hg]Kaylinn Dokken [address] [place], [place] 9711904-03-2024 22:03-0400Heart rate74 /minKaylinn Dokken [address] [place], [place] 9711904-03-2024 22:03-0400 Respiratory rate16 /minKaylinn Dokken [address] [place], [place] 9711904-03-2024 22:03-7726OwV7% (BldA) [Mass fraction]100 %Kaylinn Dokken [address] [place], [place] 9711904-03-2024 22:03-0400 Systolic blood mm[Hg]Kaylinn Dokken [address] [place], [place] 9711902-04-2024 07:47-0500Body qiwxmwkmzbr98.88 [degF][facility]02-04-2024 07:47-0500Diastolic blood pghecdtu75 mm[Hg][facility]02-04-2024 07:47-0500Heart rate95 /min[facility]02-04-2024 07:47-0500Respiratory rate20 /min[facility]02-04-2024 07:47-3161LfZ0% (BldA) [Mass fraction]95 %[facility]02-04-2024 07:47-0500Systolic blood pressure 133 mm[Hg][facility]09-28-2023 09:45-0400Hourly RoundCarmelita Wilkerson [address] [place], [place] [address]Comment on above:Result Comment: pt discharged via wheelchair to private vehicle for departure carried in carrier for tdzgzcsau32-24-8020 09:15-0400Hourly Grupo Wilkerson [address] [place], [place] [address]Comment on above:Result Comment: pt packs up room at this time, support person in room assisting to call when ready for zhcsotozz74-37-1157 08:15-0400Diastolic blood oohbmzbs53 mm[Hg] You Wilkerson [facility]09-28-2023 08:15-0400Heart rate76 /minYou Barnesten [facility]09-28-2023 08:15-0400 Systolic blood fzpgvfno176 mm[Hg]You Wilkerson [address] [place], [place] 9406209-28-2023 08:07-0400Heart rate69 /minYou Wilkerson [address] [place], [place] 9406209-28-2023 08:07-4362DsK2% (BldA) [Mass fraction]97 %You Wilkerson [facility]09-28-2023 08:07-0400 Diastolic blood pipuxjvi43 mm[Hg]You Wilkerson [address] [place], [place] 9406209-28-2023 08:07-0400Mean blood wsyypdqo965 mm[Hg]You Wilkerson [facility]09-28-2023 08:07-0400 Systolic blood lotmqpvl668 mm[Hg]You Wilkerson [facility]09-28-2023 08:07-0400Body .24 [degF]You Wilkerson [address] [place], [place] 3377609-28-2023 08:00-0400 Hourly RoundingYou Wilkerson [address] [place], [place] [address]Comment on above:Result Comment: discharge instructions given to mother at this time mother states understanding anddenies further needs or concerns pt aware to call when ready for zztcwcdci84-08-8511 19:30-0400Blood Pressure LocationYou Wilkerson [address] [place], [place] 3377609-27-2023 19:30-0400Body hzkezosilwv99.78 [degF]You Wilkerson [facility]09-27-2023 19:30-0400 Diastolic blood wtwezwzq85 mm[Hg]You Wilkerson [facility]09-27-2023 19:30-0400Heart rate93 /minYou Wilkerson [facility]09-27-2023 19:30-0400Mean blood avszcotf095 mm[Hg]You Wilkerson [facility]09-27-2023 19:30-0400 Systolic blood mm[Hg]You Wilkerson [facility]09-27-2023 17:37-0400Mean blood mm[Hg]You Wilkerson [facility]09-27-2023 17:30-0400Blood Pressure LocationJase Wilkerson [facility]09-27-2023 17:30-0400Body elkqiiymbds12.06 [degF]You Wilkerson [facility]09-27-2023 17:30-0400 Respiratory rate18 /Duong Wilkerson [facility]09-27-2023 14:51-3761IjL1% (BldA) [Mass fraction]97 %You Wilkerson [address] [place], [place] 3377609-27-2023 14:50-0400Mean blood ukroajga541 mm[Hg]You Wilkerson [facility]09-27-2023 14:45-0400Blood Pressure Locationse Wilkerson [facility]09-27-2023 14:45-0400Body xkojygxbxar47.24 [degF]You Wilkerson [facility]09-27-2023 14:45-0400 Respiratory rate18 /Duong Wilkerson [facility]09-27-2023 07:47-0703HfX4% (BldA) [Mass fraction]97 %You Wilkerson [facility]09-27-2023 07:46-0400Mean blood mm[Hg]You Wilkerson [facility]09-26-2023 20:42-0400Mean blood mm[Hg]You Wilkerson [facility]09-26-2023 08:00-0400Body ptcrbgpxwku28.06 [degF]You Wilkerson [facility]09-26-2023 08:00-0400 Respiratory rate18 /minYou Wilkerson [facility]09-25-2023 21:00-0400 Promise to ReturnYou Wilkerson [facility]09-25-2023 19:26-0400Body nlbrriiydxp80.88 [degF]You Wilkerson [facility]09-25-2023 07:05-0400Heart yhfj650 /minYou Wilkerson [facility]09-17-2023 20:34-0400 Hourly RoundingYou Wilkerson [facility] MemorialComment on above:Result Comment: pt ambulates off unit w/ steady gait.05-18-2023 20:31-0400Hourly RoundingYou Wilkerson [facility] MemorialComment on above:Result Comment: discharge instructions given to pt, pt verbalizes understanding of all teaching andunderstands to go to morning appt. denies needs or questions. 05-18-2023 19:58-0400Blood Pressure LocationYou Wilkerson [facility]09-17-2023 19:58-0400Body dorpckqupih77.06 [degF]You Wilkerson [facility]09-17-2023 19:58-0400 Diastolic blood xsosjnsg20 mm[Hg]You Wilkerson [facility]09-17-2023 19:58-0400Heart fqud666 /Duong Wilkerson [facility]09-17-2023 19:58-0400Mean blood vnwgiyjm84 mm[Hg]You Wilkerson [facility]09-17-2023 19:58-0400 Respiratory rate18 /minYou Wilkerson [facility]09-17-2023 19:58-0400 Systolic blood jgzocubp806 mm[Hg]You Wilkerson [facility]09-17-2023 19:50-0400Blood Pressure LocationYou Wilkerson [facility]09-17-2023 19:50-0400 Diastolic blood ompijorg13 mm[Hg]You Wilkerson [facility]09-17-2023 19:50-0400 Hourly RoundingYou Wilkerson [facility] MemorialComment on above:Result Comment: pt arrives to unit and hooked up to EFM.05-18-2023 19:50-0400Mean blood dragezcw676 mm[Hg]You Wilkerson [facility]09-17-2023 19:50-0400 Systolic blood stwzovma239 mm[Hg]You Wilkerson [facility]09-01-2023 16:55-0400 Hourly RoundingRussel SPANN [facility]Comment on above:Result Comment: discharged via wheelchair to private car accompanied by nursing staff 05-02-2023 16:45-0400Hourly RoundingRussel SPANN [facility]Comment on above:Result Comment: discharge instructions given, questions answered and papers signed, up to bathroom to -[id number] 16:00-0400Diastolic blood mm[Hg]Russel SPANN [facility]09-01-2023 16:00-0400Heart jvsn942 /minCoreniya MOJICAO [facility]09-01-2023 16:00-0400 Hourly RoundingCorey MARIA INES [facility]09-01-2023 16:00-0400Mean blood rzjluprg70 mm[Hg]Russel MARIA INES [facility]09-01-2023 16:00-0400 Respiratory rate18 /minCorey MARIA INES [facility]09-01-2023 16:00-0400 Systolic blood xmfixcmt011 mm[Hg]Russel MARIA INES [facility]05-03-2023 12:28-0400Blood Pressure LocationAurora Orzech [phone]-VdxbsSt. [facility] Wjzb98-98-1195 12:28-0400Body cijpjtqtndf22.52 [degF]Sylvia Orzech 123-7096Rrrtpx-IjlajSt. [facility] Wglp33-18-7033 12:28-0400Diastolic blood mrxkceos45 mm[Hg]Sylvia Orzech 069-8771Aifstv-YhiqrSt. [facility] Of [facility] Mxds97-96-0603 12:28-0400Heart rate79 /minAurora Orzech 370-6099Guxiau-RvxgiSt. [facility] Hpte75-10-2981 12:28-5643PdP5% (BldA) [Mass fraction]98 %Sylvia Orzech 693-3631Nxgpml-TusmgSt. [facility] Of [facility] Ftgw31-53-5071 12:28-0400Systolic blood zlafvvgm535 mm[Hg]Sylvia Orzech 646-6597Dveips-KmailSt. [facility] Of [facility] Rkck85-96-6359 10:11-0500Body utjxhonsbxq34.06 [degF]Juan Diego Hearn [facility]02-11-2023 10:11-0500 Diastolic blood tqshquqz36 mm[Hg]Juan Diego Hearn [facility]02-11-2023 10:11-0500Heart lcin865 /Kings Hearn [facility]02-11-2023 10:11-0500 Respiratory rate18 /minJuan Diego Hearn [facility]02-11-2023 10:11-5081PnZ1% (BldA) [Mass fraction]97 %Juan Diego Hearn [facility]02-11-2023 10:11-0500 Systolic blood ceosemev983 mm[Hg]Juan Diego Hearn [facility]01-16-2023 09:00-0500Body axjsnh387.64 cmTuan Haas Other [employer] Other 01-16-2023 09:00-0500Body mass index (BMI) [Ratio] 45.19 kg/v5GgjtzTuan Haas Other [employer] Other 01-16-2023 09:00-0500Body xqtmaf888.01 kgTuan Haas Other [employer] Other 01-16-2023 09:00-0500Diastolic blood kwalfbuu64 mm[Hg] Tuan Haas Other [employer] Other 01-16-2023 09:00-0500Respiratory rate18 /minTuan Haas Other [employer] Other 01-16-2023 09:00-4074HdH6% (BldA) [Mass fraction]95 % Tuan Haas Other [employer] Other 01-16-2023 09:00-0500Systolic blood jrlltaoh985 mm[Hg] Tuan Haas Other [employer] Other [id number] 16:29-0400Diastolic blood yrvpwuls09 mm[Hg] [facility]10-16-2022 16:29-0400Heart xohh685 /min[facility]10-16-2022 16:29-0400Respiratory rate18 /min[facility]10-16-2022 16:29-6049DtN2% (BldA) [Mass fraction]98 %[facility]10-16-2022 16:29-0400Systolic blood mm[Hg][facility]10-16-2022 14:32-0400Body xpwamjrokfq43.42 [degF][facility]10-16-2022 14:32-0400Diastolic blood gbfovfxp59 mm[Hg][facility]10-16-2022 14:32-0400Heart zqqo189 /min [facility]10-16-2022 14:32-0400Respiratory rate 18 /minV[facility]10-16-2022 14:32-1811UhZ3% (BldA) [Mass fraction]100 %[facility]10-16-2022 14:32-0400Systolic blood ysnpjfbg208 mm[Hg][facility]10-13-2022 14:30-0400Body psizdn208.64 cmTuan Haas Other [employer] Other 08-03-2022 09:45-0400Body .64 cmTuan Haas Other [employer] Other 08-03-2022 09:45-0400Body mass index (BMI) [Ratio] 44.87 kg/o6WzqaqTuan Haas Other [employer] Other 08-03-2022 09:45-0400Body .1 kgTuan Haas Other [employer] Other 08-03-2022 09:45-0400Diastolic blood zccdmvzy98 mm[Hg] Tuan Haas Other [employer] Other 08-03-2022 09:45-0400Respiratory rate18 /minTuan Haas Other [employer] Other 08-03-2022 09:45-3389OwV5% (BldA) [Mass fraction]97 % Tuan Haas Other [employer] Other 08-03-2022 09:45-0400Systolic blood rndisenb000 mm[Hg] Tuan Haas Other [employer] Other [id number] 22:35-0400Hourly Grupo Wilkerson [facility]:Result Comment: patient discharged via wheelchair to bov66-28-8049 22:35-0400Hourly Grupo Wilkerson [facility]Comment [facility] above:Result Comment: all tissue from delivery packed for chromosomal studies 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 consent in package and scanned in dmugg59-07-1225 22:05-0400 Hourly Grupo Wilkerson [facility]Comment on above:Result Comment: selena consent signed. up to shower, tolerated oorj03-79-5486 22:00-0400Diastolic blood wvbaafsg57 mm[Hg]You Wilkerson [facility]07-10-2022 22:00-0400Heart rate98 /minJames Rhea [facility]07-10-2022 22:00-0400Mean blood tzkumbps23 mm[Hg]You Wilkerson [facility]07-10-2022 22:00-0400 Respiratory rate18 /minJames Rhea [facility]07-10-2022 22:00-0400 Systolic blood zjzmifnh806 mm[Hg]You Wilkerson [facility]07-10-2022 21:08-0400Blood Pressure LocationJames Rhea [facility]07-10-2022 21:08-0400 Diastolic blood mm[Hg]You Wilkerson [facility]07-10-2022 21:08-0400Heart cseb480 /minJames Rhea [facility]07-10-2022 21:08-0400Mean blood rvlhwpyw84 mm[Hg]You Wilkerson [facility]07-10-2022 21:08-0400 Respiratory rate20 /minJames Rhea [facility]07-10-2022 21:08-0400 Systolic blood dpiqteqs772 mm[Hg]You Wilkerson [facility]07-10-2022 20:43-0400 Diastolic blood hulhsvbc14 mm[Hg]You Wilkerson [facility]07-10-2022 20:43-0400Heart ayiu423 /minYou Wilkerson [facility]07-10-2022 20:43-0400Mean blood ybbjruwt638 mm[Hg]You Wilkerson [facility]07-10-2022 20:43-0400 Respiratory rate20 /minYou Wilkerson [facility]07-10-2022 20:43-0400 Systolic blood mm[Hg]You Wilkerson [facility]07-10-2022 20:15-0400Body ugqbsebehwr47.24 [degF]You Wilkerson [facility]07-10-2022 15:25-0400Body ziphknylmof94.78 [degF]You Wilkerson [facility]07-10-2022 15:25-9395HoB3% (BldA) [Mass fraction]97 %You Wilkerson [facility]06-07-2022 21:44-0400 Diastolic blood fjiiuznt37 mm[Hg]Iván Rodriguez [facility]06-07-2022 21:44-0400Heart sjmm333 /minNopablo Jennifer [facility]06-07-2022 21:44-0400Mean blood diferrqq84 mm[Hg]Iván Jennifer [facility]06-07-2022 21:44-0400 Respiratory rate16 /minNoah Jennifer [facility]06-07-2022 21:44-5856XgX7% (BldA) [Mass fraction]94 %Iván Jennifer [facility]06-07-2022 21:44-0400 Systolic blood uiwmhouq31 mm[Hg]Iván Jennifer [address]06-07-2022 20:26-0400 Diastolic blood hybpmjve11 mm[Hg]Iván Jennifer [address] [place], [place] 971[address]06-07-2022 20:26-0400Heart hmvn531 /minNoah Jennifer [address] [place], [place] 971[address]06-07-2022 20:26-0400Mean blood oeyfbznx57 mm[Hg]Iván Jennifer [address] [place], [place] 971[address]06-07-2022 20:26-0400 Respiratory rate16 /minNoah Jennifer [address] [place], [place] 971[address]06-07-2022 20:26-8779LaR3% (BldA) [Mass fraction]99 %Iván Jennifer [address] [place], [place] 971[address]06-07-2022 20:26-0400 Systolic blood aaydosuz038 mm[Hg]Iván Jennifer [address] [place], [place] 9711906-07-2022 19:00-0400 Diastolic blood hhbrcjsu54 mm[Hg]Iván Jennifer [address] [place], [place] 9711906-07-2022 19:00-0400Heart kjqu996 /minNoah Jennifer [address] [place], [place] 9884906-07-2022 19:00-0400Mean blood ihpylduf11 mm[Hg]Iván Jennifer [address] [place], [place] 9884906-07-2022 19:00-0400 Systolic blood ytzunxmt841 mm[Hg]Iván Jennifer [address] [place], [place] 9711906-07-2022 18:22-0400Body nxhucjgvois66.32 [degF]Iván Jennifer [address] [place], [place] 9711910-29-2021 09:30-0400Body ucyiui741.64 cmTuan Haas Other [employer] Other 10-29-2021 09:30-0400Body mass index (BMI) [Ratio] 43.45 kg/t3EazycTuan Haas Other [employer] Other 10-29-2021 09:30-0400Body bepphw076.11 kgTuan Haas Other [employer] Other 10-29-2021 09:30-0400Diastolic blood bhzmzjof02 mm[Hg] Tuan Davispercy Other [employer] Other 10-29-2021 09:30-0400Respiratory rate18 /minTuan Haas Other [employer] Other 10-29-2021 09:30-0485QgI4% (BldA) [Mass fraction]97 % Tuan Haas Other [employer] Other 10-29-2021 09:30-0400Systolic blood lkayjspb379 mm[Hg] Tuan Haas Other [employer] Other 10-28-2021 17:30-0400Body jiwiem115.64 cmStepmarielos Camacho Other [employer] Other 10-28-2021 17:30-0400Body mass index (BMI) [Ratio] 43.57 kg/d2MewemordoRosmery Camacho Other [employer] Other 10-28-2021 17:30-0400Body qjzkxqpyzaq31.2 [degF] Rosmery Camacho Other [employer] Other 10-28-2021 17:30-0400Body aouqpr795.47 kgRosmery Camacho Other [employer] Other 10-28-2021 17:30-0400Respiratory rate18 /minSemeli Camacho Other [employer] Other 10-28-2021 17:30-3197VsS9% (BldA) [Mass fraction]98 % Rosmery Camacho Other [employer] Other Encounters Encounter DateEncounter TypeCare ProviderFacilityStart: 07-06-2025 End: 78-44-7903njivabzzkvFsztt Kuns DO Work Phone: -[facility] [place]Start: 07-06-2025 End: 96-91-2426Gvdvabo encounter procedureTuan Matthews DO-[facility] [place] Work Phone: Start: 05-26-2025 End: 74-72-2097amgzfvehfwEmuwu Kuns DO Work Phone: [facility] Work Phone: Start: 05-26-2025 End: 15-51-4687Aybtcfa encounter procedureRichie Luevano DO-[facility] [place] Work Phone: Start: 61-10-9782Mbc-patient / Non-visitMelasad Lopez DO-[facility] Work Phone: Start: 05-12-2025 End: 77-53-7783vcufsutkllLkttn D KastenFacility:FTMCStart: 02-10-2025 End: 31-46-5254qdydydszbtKcleq D KastenFacility:FTMCStart: 02-10-2025 End: 14-92-1305Cgv Drop Ginna Wilkerson [facility] Start: 02-07-2025 End: 82-72-0875Ynytxx outpatient visit 25 minutesBenjamin W Murcek DO Work Phone: [facility] SANDUSKYComment on above:Pain of right upper extremity (Primary Dx)Start: 02-07-2025 End: 82-04-8411gkbeqrrysbSFKUCJFP W MURCEKNot AvailableStart: 02-07-2025 End: 59-60-6361Eflhqo flowsheetBenjamin W Murcek DO Work Phone: [facility] SANDUSKYStart: 02-07-2025 End: 56-76-8652Acamwx flowsheetBenjamin W Murcek DO Work Phone: [facility] SANDUSKYStart: 11-02-2024 End: 70-98-5764Cgftna flowsheetBenjamin W Murcek DO Work Phone: [facility] SANDUSKYStart: 11-02-2024 End: 11-32-1686Kqybin flowsheetBenjamin W Murcek DO Work Phone: [facility] SANDUSKYStart: 11-02-2024 End: 48-80-9984Vrljwv follow up visit related to original pxBenjamin W Murcek DO Work Phone: [facility] SANDUSKYComment on above:Cervical adenopathy (Primary Dx)Start: 11-02-2024 End: 49-97-0804sryoovunkeBNFQYGHP W MURCEKNot AvailableStart: 10-27-2024 End: 58-71-3246rsvcolmjjmBHEXLIDW W MURCEKNot AvailableStart: 10-26-2024 End: 19-77-6357edphoinsypCwuks KunsFacility:[facility] Start: 10-19-2024 End: 78-73-7747Lblvmqi encounter procedureBryjerad Haas DO Work Phone: [facility]ka-Jdnpfxlq Testing Work Phone: Start: 10-19-2024 End: 54-42-0248rdtetojrjzIjmcz Kuns DO Work Phone: [facility] Work Phone: Start: 21-43-7328Fwpgphbdp for preprocedural laboratory examinationBenjamarmin AldoAnabelhe [facility] Physician GroupStart: 10-19-2024 End: 99-59-5130Ttypdwpb Result EncounterBenjamin W Murcek DO Work Phone: [facility] External Department UnsolicitedStart: 10-19-2024 End: 99-52-6513Qbpsclge Result EncounterBenjamin W Murcek DO Work Phone: [facility] External Department UnsolicitedStart: 10-18-2024 End: 18-87-4234Bupakp outpatient new 45 minutesBenjamin W Murcek DO Work Phone: [facility] SANDUSKYComment on above:Cervical adenopathy (Primary Dx)Start: 10-18-2024 End: 56-09-4372pgydnasntaGUCOLUFH W MURCEKNot AvailableStart: 10-18-2024 End: 02-02-0168Xuojnr flowsheetBenjamin W Murcek DO Work Phone: [facility] SANDUSKYStart: 10-18-2024 End: 98-91-0310Vkxzdz flowsheetBenjamin W Murcek DO Work Phone: [facility] SANDUSKYStart: 10-11-2024 End: 77-96-9330xrhzidfelbRiogm Ryans DO Work Phone: [facility] Work Phone: Start: 10-11-2024 End: 77-04-7911Qiuvyru encounter procedureBryjerad Daviss DO Work Phone: [facility] Work Phone: Start: 09-09-2024 End: 29-71-3308Usztjmic ReferredTuan Haas DO Work Phone: [facility] [address] [place] Work Phone: Start: 09-09-2024 End: 79-61-3777wlmmfqrwkgSodui Kuns DO Work Phone: [facility] Work Phone: Start: 09-09-2024 End: 58-35-8754Qgbffte encounter procedureTuan Haas DO Work Phone: [facility] Work Phone: Start: 09-06-2024 End: 92-03-6161Agylfmj encounter procedureTuan Haas DO Work Phone: [facility] C[facility]-[address] Work Phone: Start: 09-06-2024 End: 81-38-5935jlsrofqhesCzrfw Kuns DO Work Phone: [facility] Work Phone: Start: 08-04-2024 End: 57-26-6191upzzcloqngEkoeo KunsFacility:[facility] Start: 08-04-2024 End: 66-03-3556Jayoqdr encounter procedureTuan Haas DO Work Phone: [facility] [place] Work Phone: Start: 07-12-2024 End: 09-09-6774Pzvthjnctr and management of inpatientJames D KastenFacility:[facility] [place] Start: 07-12-2024 End: 37-81-8201Qrvaevdrsf and management of inpatientJames D KastenFacility:[facility] [place] Start: 07-07-2024 End: 32-55-7098diezhhxeaxXwqex D KastenFacility:[facility]tart: 07-07-2024 End: 37-02-9589Hlmxdbg encounter procedureJames D Rhea [facility] Start: 06-30-2024 End: 13-48-1724tgmpaaieybTobuc D KastenFacility:[facility]Start: 06-30-2024 End: 41-90-8982Njl Drop offJames D Rhea [facility] Start: 05-01-2024 End: 28-85-3088gwuusapeceCozjw D KastenFacility:FTMCStart: 05-01-2024 End: 47-14-2986Qnhubfk encounter procedureJames D Rhea [facility] Start: 04-20-2024 End: 51-56-3092Uaokqe flowsheetNatalie A Felter FOOTWEAR PRODUCTION MACHINE OPERATOR-CARBONATING STONE CLEANER Work Phone: noms SWS DERMStart: 04-20-2024 End: 96-32-5086Gnoudq flowsheetNatalie A Felter FOOTWEAR PRODUCTION MACHINE OPERATOR-CARBONATING STONE CLEANER Work Phone: noms SWS DERMStart: 04-20-2024 End: 76-62-9323xiwwjaxtccHAWJJFL A FELTERNot AvailableStart: 04-20-2024 End: 41-11-6252Uqvoof outpatient visit 25 minutesNatalie A Felter FOOTWEAR PRODUCTION MACHINE OPERATOR-CARBONATING STONE CLEANER Work Phone: noms SWS DERMComment on above:Acne vulgaris; Other seborrheic dermatitis; Melanocytic nevus of scalp; Keratosis pilarisStart: 04-17-2024 End: 60-35-1010hfvlbdpnwkRnlot D KastenFacility:FTMCStart: 04-17-2024 End: 00-06-9472Selzcqn encounter procedureJames D Rhea [facility] Start: 03-23-2024 End: 43-55-2538gfwejphckpRnmyk D KastenFacility:FTMCStart: 03-23-2024 End: 95-02-9292Ficanyk encounter procedureJames D Rhea [facility] Start: 03-15-2024 End: 93-28-0344sbnysrjzrpZkvwm D KastenFacility:FTMCStart: 03-15-2024 End: 13-12-8801Tdx Drop offJames D Rhea [facility] start: 02-16-2024 End: 60-56-7387gtzxhogyiqIiuux D KastenFacility:FTMCStart: 02-16-2024 End: 58-45-4750Jyh Drop offJames D Rhea [facility] Start: 12-03-2023 End: 32-49-6284Smfzojxhk department patient visitStefanbob Amaya Trudy [facility] start: 12-03-2023 End: 93-55-3209hysjfpizinLsqpt D KastenFacility:FTMCStart: 12-03-2023 End: 75-36-3640Vkkobds encounter procedureJames D Rhea [facility] Start: 10-05-2023 End: 34-73-9883Tbvpuiskz department patient visitJose Bella LaK[facility] Start: 09-05-2023 End: 69-68-6395sejzbaeuixQlbac Kuns Other [place] [employer] Other start: 54-07-0858Qlgwtnvmb encounterTuan Daniels [facility] CastaliaStart: 07-22-2023 End: 80-70-0121utnvndgfdkIgeoe Kuns Other [facility] [employer] Other Start: 51-19-3228Kzlvpfmtq encounterTuan Daniels [facility] CastaliaStart: 07-14-2023 End: 97-74-7542qnbwgiuauuYqpha Ryans Other [facility] [employer] Other Start: 93-02-0983Qxlalsrnq encounterTuan Daniels [facility] CastaliaStart: 07-07-2023 End: 59-35-4885vicpvjuvgyCvbmh D KastenFacility:FTMCStart: 07-07-2023 End: 02-74-1788Plq Drop offJames D Rhea [facility] Start: 06-27-2023 End: 67-76-9317ycdzclyeohFbrpa Kuns Other [facility] [employer] Other Start: 47-70-3831Rofdswzoj encounterTuan HaasG Family [facility] CastaliaStart: 05-26-2023 End: 65-31-8635Tgrvurlomr and management of inpatientJames D Rhea [facility] Start: 05-18-2023 End: 40-81-7727iyqhmsfxobRoauw D KastenFacility:FTMCStart: 05-18-2023 End: 70-63-1517NB TriageJames D Rhea [facility] Start: 05-12-2023 End: 43-91-3568niixhfbeycZpngh D KastenFacility:FTMCStart: 05-02-2023 End: 02-29-8444kbieyxlwutXdzhl R FAZIOFacility:FTMCStart: 05-02-2023 End: 47-81-8927WF TriageCorey R MARIA INES [facility] Start: 03-14-2023 End: 31-46-6683fgpihlvcqfFkdao Angus KastenFacility:FTMCStart: 03-14-2023 End: 14-16-0137Eznprty encounter procedureJames D Rhea [facility] Start: 01-01-2023 End: 34-09-1129Jyrnfio encounter procedureAurora Renita Rice 874-4465Atduin-VavutSt. [facility] Start: 10-21-2022 End: 19-05-8663Qkx Drop offJase Wilkerson [facility] Start: 10-16-2022 End: 79-07-4432idsgbjezfnKzifd Kuns Other [place] [employer] Other Start: 88-23-8014Bvujwreog encounterTuan HaasG Family Medicine CastaliaStart: 10-12-2022 End: 59-38-5618Hlngtthgc department patient visitJuan Diego Hearn [facility] Start: 10-02-2022 End: 46-07-4516Zverzbi encounter procedureJase Wilkerson [facility] Start: 09-30-2022 End: 34-32-2954Kzjhapw encounter procedureJames D Rhea [facility] Start: 31-35-7608Emgjqy outpatient visit 25 minutes Tuan Daniels [facility] CastaliaStart: 09-16-2022 End: 85-07-1938dmwoiwrzwrZA Tuan Haas Work Phone: [facility] Work Phone: Start: 09-16-2022 End: 39-93-6704Htgaxiu encounter procedureDO Tuan Haas Work Phone: [facility] [place] Work Phone: Start: 06-25-2022 End: 84-86-6243Ocigfah encounter procedureYou Barnesten [facility] Start: 06-17-2022 End: 68-67-2493hwmhqjcblyGwvxe Kuns Other [employer] Other Start: 51-24-1795Knrkhlctc encounterTuan Daniels [facility] CastaliaStart: 06-17-2022 End: 68-81-5573Eaqgjyi encounter procedureYou Greco Rhea [facility] Start: 06-16-2022 End: 37-93-9113Jfmfhquki department patient visitAstrit H [facility] Start: 06-13-2022 End: 52-42-3219pxrcxhrrubHjqre Kuns Other [employer] Other Start: 79-14-5000Wvdfpe outpatient visit 15 minutes Tuan Daniels [facility] CastaliaStart: 05-09-2022 End: 69-85-2059hegkjameovNntph Kuns Other [employer] Other Start: 74-07-9220Rznhejtgm encounterTuan DavispercyJACK [facility] [place]aliaStart: 04-04-2022 End: 99-65-9738Bgidziz encounter procedureDO Tuan Ryanpercy Work Phone: [facility]imaStart: 04-03-2022 End: 79-44-7405zqdnyzotgrDsrzp Kuns Other [place] [employer] Other Start: 97-39-5368Lcklmb outpatient visit 25 minutes Tuan Daniels [facility] [place]Start: 03-20-2022 End: 61-90-8926Sogpdrm encounter procedureJase Wilkerson [facility] Start: 03-11-2022 End: 53-70-4651Gtx-admission assessmentJames D Rhea [facility] Start: 03-10-2022 End: 94-50-2599DC TriageJames D Rhea [facility] Start: 02-06-2022 End: 70-55-3950loploavwpgBvhfc Kuns Other [place] [employer] Other Start: 32-22-0040Jauzegzue encounterTuan DavispercyNATANAELG [facility] [place]aliaStart: 02-05-2022 End: 31-27-6929Bqevgazaa department patient visitIván Rodrigeuz [facility] Start: 02-05-2022 End: 89-18-2306cynrachhqnXyuvh Kuns Other [employer] Other Start: 43-72-5845Ytkoymudq encounterBryjerad Daniels [facility] [place]aliaStart: 01-15-2022 End: 25-82-2185Vzy Drop offJames D Rhea [facility] Start: 01-14-2022 End: 71-90-2739Dhcerzc encounter procedureJames D Rhea [facility] Start: 01-03-2022 End: 58-46-9356Nwr Drop offJames D Rhea [facility] Start: 11-01-2021 End: 38-14-5566kmvgeavriiBmaiv Kuns Other [employer] Other Start: 43-05-9077Oicuzjyzy encounterBryjerad Daniels [facility] CastaliaStart: 10-31-2021 End: 84-06-7582ebmdikihkgImwdy Kuns Other [employer] Other Start: 29-85-0722Kqbuiojvf encounterBryjerad Daniels [facility] CastaliaStart: 10-29-2021 End: 17-77-6605fzwzwofnvkWcpfl Kuns Other [employer] Other Start: 54-82-1086Qemzlwegy encounterBryjerad Daniels [facility] CastaliaStart: 09-11-2021 End: 37-47-9787tqhqwfnzxqPpddn Kuns Other [employer] Other Start: 66-70-4763Vwdxmyc evaluation of patient and reportBryjerad HaasAnthony [facility] CastaliaStart: 09-06-9426Mqklcaaqz encounter Tuan Daniels [facility] [place]aliaStart: 07-04-2021 End: 36-82-6291nidljusthaMdohl Kuns Other [facility] [employer] Other Start: 10-82-7243Etwoqjprx encounterTuan Daniels [facility] CastaliaStart: 07-02-2021 End: 42-69-3174ylittunhetCC TUAN HAASFacility:L2Lzqsw: 95-57-7853Mnmtuy outpatient visit 15 minutesBryjerad Daniels [facility] CastaliaStart: 06-28-2021(URG) Urgent Care VisitStephanie JaniceFPG Urgent Care ClydeStart: 06-22-9452Cjihopryi encounterTuan KnightG [facility] [place] Procedures DateProcedureProcedure DetailPerforming ClinicianStart: 99-74-3054Wdgta metabolic panel calcium totalBenjamin W Murcek DO Work Phone: start: 28-94-2692Eocqowwl blood count with white cell differential, automatedBenjamarmin W Murreyesk DO Work Phone: start: 73-70-1401Zzgslxf microbial cultureTuan Haas DO Work Phone: Start: 96-18-3819Eviopugyv microbial cultureTuan Haas DO Work Phone: Start: 58-33-9854Uchv stain microscopyBryjerad Daviss DO Work Phone: Start: 75-12-3929Abjkoytu tomography of soft tissues of neck without contrastTuan Haas DO Work Phone: Start: 94-87-4213Uhxgf X-ray of right handDO Tuan Daviss Work Phone: Start: 09-23-3130Lmpwi X-ray of right wristDO Tuan Haas Work Phone: Start: 73-29-3580IvkmdjknSanta Marta Hospitalten cesarean sectionYou Wilkerson moles removed under localYou Wilkerson Plan of Treatment DateCare ActivityDetailAuthorStart: 01-31-8598ZrkvjecdeBethesda North Hospital Start: 02-21-2025 End: 76-40-2784Yufdpng encounter cnwaxoccg63/23/2025 3:15 PM EDT Office Visit [facility] [place] [address] [place] [phone] Herman Thomas, DO [address] [place] [address] [facility] SANDUSKYStart: 02-07-2025 End: 39-75-3379Ofhkebp encounter ormxqwawx99/09/2025 2:45 PM EDT Office Visit [facility] [address] [place] [phone] Herman Thomas, DO [address] [place] [address] ArrivedNOMS ENT SANDUSKYComment on above:ArrivedStart: 11-02-2024 End: 92-18-4002Elnesgu encounter procedureNOMS ENT SANDUSKYComment on above: ArrivedStart: 10-18-2024 End: 93-11-1089Tiysdkp encounter ablokfweb27/17/2025 3:00 PM EST Office Visit [facility] [address] [place] [phone] Herman Thomas, DO [address] [place] [address] ArrivedNOMS ENT SANDUSKYComment on above:ArrivedStart: 68-95-2652QbyttcwddMercy Health St. Elizabeth [facility]stown Hospitaltart: 54-71-5122Rsjjzst Culture Aerobic CultureMercy Health St. Elizabeth Youngstown Hospitaltart: 40-44-8512Umkahhxcx CultureAnaerobic CultureMercy Health St. Elizabeth Youngstown Hospitaltart: 09-09-2024 Microscopic observation [Identifier] in Unspecified specimen by Gram stain [facility] Hospitaltart: 88-15-9671Zcmxqsv [facility] Work Phone: Start: 91-68-6144Aqfxgfhof vaccinationInfluenza Vaccine (#1)[facility] HealthcareBacteria identified in Unspecified specimen by Aerobe cultureBethesda North HospitalBacteria identified in Unspecified specimen by Anaerobe cultureBethesda North HospitalComprehensive metabolic 2000 panel - Serum or PlasmaBethesda North HospitalGlucose measurement estimated from glycated hemoglobinBethesda North Hospital Hemoglobin A1c/Hemoglobin.total in BloodBethesda North HospitalPatient referralCleveland Clinic [facility] Work Phone: [facility] Immunizations Immunization DateImmunizationNotesCare ZrlftswvTauksofi69-58-2415ctglxgk toxoid, reduced diphtheria toxoid, and acellular pertussis vaccine, adsorbedJames Rhea [facility] MemorialComment on above:Reason for Medication: Other (see comment)59-00-2050kxxuqyvjp virus vaccine, unspecified formulationAurora Orzech 491-8228Elgcil-JtrubSt. [facility] Egiq28-14-9911 influenza, injectable, quadrivalent, preservative freeBenjamin Murcek DO Work Phone: [facility] Tohgnbhsdn03-20-7191hjryfqg toxoid, reduced diphtheria toxoid, and acellular pertussis vaccine, adsorbedAurora Orzech 026-2734Jweree-IfhxgSt. [facility] Zbqk01-75-5856 influenza, seasonal, injectableStephanie Janice Other [facility]02-28-2017tetanus toxoid, reduced diphtheria toxoid, and acellular pertussis vaccine, adsorbed You Rhea [facility] MemorialComment on above:Reason for Medication: Other (see comment)62-66-8271lycixnm toxoid, reduced diphtheria toxoid, and acellular pertussis vaccine, adsorbedStephanie Janice Other [facility]09-04-2012tetanus toxoid, reduced diphtheria toxoid, and acellular pertussis vaccine, adsorbed Rosmery Janice Other [facility]08-22-2005poliovirus vaccine, inactivatedStepmarielos Camacho Other [employer] Other 542524-53-4554avviofncnu, tetanus toxoids and acellular pertussis vaccineStepmarielos Camacho Other [employer] Other 459532-28-3325nvdgczs, mumps and rubella virus vaccine Rosmery Camacho Other 559-4181Pkgxue-OgbfnSt. [facility] Nuft81-13-7900 diphtheria, tetanus toxoids and acellular pertussis vaccine, unspecified formulationTuan Haas DO Work Phone: [facility]08-22-2005DTaP, unspecified formulationAurora Orzech 571-4492Pebadk-ToiqqSt. [facility] Dwim15-41-0114 poliovirus vaccine, unspecified formulationAurora Orzech 365-9923Ignqwi-AbfeaSt. [facility] Ozsu46-44-9779 diphtheria, tetanus toxoids and acellular pertussis vaccineStepmarielos Camacho Other [employer] Other 626113-42-1304rbctgcmhqnt influenzae type b vaccine, PRP- OMP conjugateStepmarielos Camacho Other [facility]01-25-2001measles, mumps and rubella virus vaccineStepmarielos Camacho Other 130-3626Uzstcc-QfzkwSt. [facility] Kxor97-18-3067 diphtheria, tetanus toxoids and acellular pertussis vaccine, unspecified formulationBryan Kuns DO Work Phone: [facility]01-25-2001DTaP, unspecified formulationAurora Orzech 792-6704Uhigcw-OfxltSt. [facility] Lsce39-09-2346 haemophilus influenzae type b vaccine, PRP-T conjugateAurora Orzech 016-3752Gvvfoo-YxiefSt. [facility] Uopl38-97-5834 hepatitis B vaccine, pediatric or pediatric/adolescent dosageStephanie Janice Other 802-7785Hkjdvz-GjoapSt. [facility] Hqzg72-55-1749 poliovirus vaccine, inactivatedStephanie Janice Other [employer] Other 293789-16-7037mufqsmcowf, tetanus toxoids and acellular pertussis vaccineStephanie Janice Other [employer] Other 200407-93-5012bbqzilicauc influenzae type b vaccine, PRP- OMP conjugateStephanie Janice Other [facility]03-09-2000diphtheria, tetanus toxoids and acellular pertussis vaccine, unspecified formulationBryjerad Haas DO Work Phone: [facility]03-09-2000DTaP, unspecified formulationAurora Orzech 216-0015Xnokoh-RawroSt. [facility] Ayhf93-49-6458 haemophilus influenzae type b vaccine, PRP-T conjugateAurora Orzech 628-9762Xgxvwy-NvqvrSt. [facility] Of [facility] Ektn88-21-9531 poliovirus vaccine, unspecified formulationAurora Orzech 625-0965Sjzfnj-EmxttSt. [facility] Uyuj82-19-0519 poliovirus vaccine, inactivatedStephanie Janice Other [employer] Other 01237431-52-9034rtxnkivjoj, tetanus toxoids and acellular pertussis vaccineStephanie Janice Other [place] [employer] Other 734597-02-1264bpyicfqnuwa influenzae type b vaccine, PRP- OMP conjugateStephanie Janice Other [facility]01-06-2000hepatitis B vaccine, pediatric or pediatric/adolescent dosageStephanie Janice Other 810-9646Yecual-AmgxxSt. [facility] Sses15-98-7031 diphtheria, tetanus toxoids and acellular pertussis vaccine, unspecified formulationBryan Waldo DO Work Phone: [facility]01-06-2000DTaP, unspecified formulationAurora Orzech 798-7342Ekjwlk-PjuxeSt. [facility] Dtek57-21-5891 haemophilus influenzae type b vaccine, PRP-T conjugateAurora Orzech 039-7969Imhybr-TukleSt. [facility] Ypcp83-22-8720 poliovirus vaccine, unspecified formulationAurora Orzech 063-7951Jjdoko-QjqfuSt. [facility] Faid91-60-0626 diphtheria, tetanus toxoids and acellular pertussis vaccineStephanie Janice Other [facility] [employer] Other 1325465-33-0526kfwwvgfpuyv influenzae type b vaccine, PRP- OMP conjugateStephanie Janice Other [facility]1999hepatitis B vaccine, pediatric or pediatric/adolescent dosageStephanie Janice Other 650-4590Jucsib-JfidcSt. [facility] Affk57-10-7712 poliovirus vaccine, inactivatedStephanie Janice Other [place] [employer] Other 11478540-97-1273ceqwbgwsiy, tetanus toxoids and acellular pertussis vaccine, unspecified formulationBryan Waldo DO Work Phone: [facility]1999DTaP, unspecified formulationAurora Orzech 941-6663Ulmdpf-QxdxpSt. [facility] Vrfn22-67-8161 haemophilus influenzae type b vaccine, PRP-T conjugateAurora Orzech 753-5026Rpmrzs-KzinhSt. [facility] Of [facility] Jqxn24-21-1510 poliovirus vaccine, unspecified formulationAurora Orzech 243-6008Peabjk-WjxzjSt. John Of [facility] CareNEGATED: Highlighted row has not occurred!18-65-3353kbxejyazu virus vaccine, unspecified formulationAurora Orzech 167-9099Qpofah-VzrmdSt. John Of God Hospital [facility]ven[facility] CareNEGATED: Highlighted row has not occurred!22-74-3322IQOB-CoV-2 mRNA (tozinameran 5y-11y) vaccineAurora Orzech 494-6066Bthldx-QpjfjSt. John Of [facility] Care Payers DatePayer CategoryPayerPolicy [id number]-fvo [id number] Health Insurance [id number] [employer] [id number] 2023-Present [address] [place] [address] [id number] [id number] 2023Medicaid (Managed Care)[employer] Member Subscriber Plan / Payer (Effective 2023-Present) Name: Kassie Crawford Relation to Subscriber: Self Name: Kassie Crawford Subs criber ID: [id number] Payer ID: Not on file Group ID: Not on file Type: Not on file Address: [place] [id number] [id number] 2.0.1.986923.3.57[id number] 2.0.1.864266.3.57[id number] 2.0.1.242890.3.57[id number] 2.0.1.904212.3.57[id number] 2.0.1.685137.3.57[id number] 2.0.1.316602.3.579.2.26474-81-9271Chikcck15028650 2.0.1.350543.3.579.2.88760-08-1607Cekassu46919033 2.160.1.816296.3.579.2.50920-94-0943Zhwsrtt98863653 2.16840.1.910050.3.579.2.25371-63-9755Uvqcrxu18509806 2.16840.1.523019.3.57[id number] 2.16840.1.888625.3.579.2.17076-95-1353Npudecn22498730 2.16840.1.378768.3.579.2.27134-80-6979Zyxzmvr11239135 2.16840.1.934948.3.579.2.04435-63-9212Jnlmiej67783931 2.16840.1.406936.3.579.[id number] 2.840.1.591115.3.579.2.80427-53-1023Dukqjvc96644433 2..1.720424.3.57[id number] 2.840.1.727817.3.579.2.98677-10-8366Xfroakz29984689 2.840.1.433635.3.579.2.94932-53-7612Felxlqu18068152 2.840.1.466123.3.579.2.52889-24-5808Hwyzrln29550254 2..1.254029.3.579.2.74527-69-3401Jakfsob37647707 2.840.1.993520.3.579.2.35351-13-2977Rdohgrh24618187 2.840.1.031110.3.579.2.54946-36-5545Kafdmjq16933164 2.840.1.783839.3.579.2.18029-54-5233Ikuavzw12737426 2.840.1.478216.3.579.2.56804-62-5910Wpseyeh23471220 2..1.490930.3.579.2.515100-47-4710Ktgvpoz8345857 2..1.721578.3.579.2.455070-83-0696Fnwmsxo1782683 2..1.107394.3.579.2.603067-98-4407Clilfor5725586 2..1.054579.3.579.2.922330-63-2058Ksowidr9955706 2..1.290787.3.579.2.243303-95-4705Khrhykf62491489 2..1.923851.3.579.2.41296-18-8752Xexjmis94920823 2..1.971672.3.579.[id number] of Defense ( and others) [facility] Net Fed-[id number] Health Insurancet Insurance Co [id number] 2.0.1.551561.3.579.2.921Cbtldlw04173913 2.0.1.110977.3.579.2.531 Fkoqmbx85255835 2.840.1.219461.3.579.2.035Ekmhbso61908511 2.0.1.847832.3.579.2.550Xuowkmn01321311 2.0.1.687439.3.579.2.531 [id number] 2.16.840.1.732416.3.579.2.531 Social History DateTypeDetailFacilityStart: 23-79-9111Clukhdl smoking statusNeRobert H. [facility]ard [facility] [employer] Other Start: 04-20-2024 End: 30-38-6720Ypw Assigned At BirthFeCarolina Pines [facility] [employer] Other Start: 02-05-2022 End: 09-30-4319Uayjmyp smoking statusNever smoked tobacco (finding)[facility] Hospitaltart: 44-17-7529Nsh [facility]igned At [facility]tart: 61-26-3859Tuzubof use and exposureSmokeless tobacco non-userNOMS HealthcareStart: 04-20-2024 End: 77-37-4129Bhwbdnoic beverage intakeLifetime non-drinker (finding)[facility] HealthcareStart: 04-20-2024 End: 88-15-6198Tcbmsjz of Social functionNOMS HealthcareStart: 12-49-6174Dtixscf CommentCaffeine: noneNOMS HealthcareStart: 85-36-3809Eap assigned at birthNot on fileNOMS HealthcareStart: 09-09-2011 End: 27-66-0264LafNbgmbl (finding)[facility] Hospitalexual [facility] NEGATED: Highlighted rowBethesda North Hospital Functional Status ZwbhLyjcwdtgjnYykzrcPfsqvibs64-40-6445Wynjcwwwpk StatusSamaritan Hospital11-06-2024Functional StatusN/[facility]04-03-2024 Functional StatusN/[facility]02-04-2024Functional StatusN/A [facility]09-25-2023Functional StatusSamaritan Hospital09-17-2023Functional StatusN/[facility]09-01-2023 Functional StatusN/[facility]05-03-2023Functional StatusN/A [facility] Hjas32-40-9535Qbgnswcjre StatusN/[facility]10-16-2022Functional StatusN/[facility]07-10-2022Functional StatusN/[facility] Clinical Notes 10-02-2016 to 05-26-2025 Note Date & NwcgXahrCrzzelmc93-83-3217 Evaluation note* Diagnosis Onset Date Resolution Status Admit Date Acute sinusitis acuteSept2024 10:27amHypertensionacuteSept2024 10:27am Iron deficiency anemiaacuteSept2024 10:27amMiscarriageacuteSept2024 10:27amNauseaacuteSept2024 10:27amPrediabetesacute May 26, 2025 10:27amBMI 45.0-49.9, adultacuteNovember 2024 11:06am HypertensionacuteNov2024 11:06am [facility] Work Phone: 1(134) 542-425206-09-2025 History of Present illness Narrative* Herman Thomas, DO - 02/07/2025 2:45 PM EDT Subjective Patient ID: HPI Patient presents today with complaints of right shoulder and arm discomfort. This has been going cedric couple of months. She is status post excision of a couple of large but benign right posterior triangle lymph nodes by myself back in October. Review of the chart and the op note shows no injury tothe eleventh cranial nerve. Review of Systems ROS The specialty specific review of systems is noncontributory except for that recorded in the intake questionnaire and /or described in the history of present illness. Objective ENT Physical Exam Physical Exam Constitutional: Patient has full range of motion of the right shoulder able to easily raise her armabove and over her head. This does not [...] her back following that documented in this [facility]03-04-2025 History of Present illness Narrative* Herman Thomas DO - 11/02/2024 9:00 AM EST HPI Patient presents today status post excision [...] patient back as needed documented in this [facility]02-17-2025 History of Present illness Narrative* Herman Thomas DO - 10/18/2024 3:00 PM EST Allergies as of 10/18/2024 (No Known Allergies) [...] feeling in her cheeks, etcetera. She was treatedwith a couple of rounds of antibiotics that [...] in the near future. [id number] Radiology Diagnostic study [facility] [place] [address] CT Scan Report Signed Patient: Kassie Crawford MR#: [id number] : 2000 Acct:[id number] Age/Sex: 24 / F ADM Date: 5 Loc: [facility] Room: Type: [facility] Attending Dr: Tuan Haas DO Copies to: [...] Evangelista Kenyon M.D.09/06/2024 4:55 PM Dictation Location: [place] [address] Transcribed By: [facility] 09/06/241654 Dictated By: Evangelista Kenyon MD 09/06/241636 Signed By: 09/06/241654 [facility] Work Phone: [phone] 445-973812-04-2024 Evaluation note* Author [facility] Fountain [facility] 11:11amThe above note written by Tricia CARPENTER acting as human recorder, note dictated by Dr. Tuan Haas. [facility] Work Phone: [phone]) 174-206312-04-2024 Evaluation note* Author Tricia [facility] 2023 11:11amThe above note written by Tricia CARPENTER acting as human recorder, note dictated by Dr. Tuan Haas. Author [facility] 20[facility] 2:50pmThe above note written by Cheyanne Rodriges LPN, acting as human recorder, note dictated by Dr. Tuan Haas. [facility] Work Phone: [phone]) 227-882112-04-2024 Evaluation note* Author Tricia [facility] 2023 11:11amThe above note written by Tricia CARPENTER acting as human recorder, note dictated by Dr. Tuan Haas. Author [facility]The [facility] 2024 2:50pmThe above note written by Cheyanne Rodriges LPN, acting as human recorder, note dictated by Dr. Tuan Haas. Author Tricia [facility] 2024 9:39amThe above note written by Tricia CARPENTER acting as human recorder, note dictated by Dr. Tuan Haas. [facility] Work Phone: [phone] NoteDischarge Summary DATE OF DISCHARGE: 07/14/2024 The [...] section productive of an 8-pound 14-ounce female with Apgars of 9 and 9. A true knot was noted in the cord. Prioruterine scar was intact. Course: Without complication. You Wilkerson M.D. ca Dictated: 07/30/2024 [id number] Transcribed: 08/01/2024[facility] HospitalComment on above:Result Comment: Electronically Signed By: Rhea LAZARO, You Greco\.br\Date and Time Signed: 08/04/24 06:46 [id number] NoteProgress Note-Physician Patient: KASSIE CRAWFORD Age: 24 years Sex: Female : 2000 Associated Diagnoses: None Author: MD Blue, Chandu Kahn Postoperative Information Post Operative Note: Day 1, OPTIMETRIX : [id number]. Anesthetic utilized: Regional: Epidural. Health Status Allergies: Allergic Reactions (Selected) No Known Allergies Problem list: All Problems Acid reflux / SNOMED CT 4772278043 / Confirmed Age mother conceived under 17 / Patient Care / Confirmed Previous uterine scarring / Patient Care / Confirmed BMI 30+ - obesity / SNOMED CT 1543156321 / Confirmed History of / SNOMED CT 486135416 / Confirmed Resolved: / SNOMED CT 896997561 Resolved: Arthritis / SNOMED CT 6291816 Resolved: Yeast / SNOMED CT 362014484 Resolved: / SNOMED CT 614968754 Resolved: / SNOMED CT 228712463 Resolved: / SNOMED CT 429858630 Resolved: / SNOMED CT 908522846 Resolved: / SNOMED CT 221286177 Resolved: / SNOMED CT 415242856 Physical Examination No qualifying data available General: Alert and oriented, No acute distress. Neurologic: Normal sensory, Normal motor function, No focal deficits. Review / Management Condition: Stable. Assessment Anesthetic outcome No post-epidural complications noted.. Epidural catheter removed by nursing staff. Epidural tip intact. Epidural site C/D/I without erythema, swelling or tenderness.. Plan Transfer/ Discharge: Condition stable.[facility] HospitalComment on above:Result Comment: Electronically Signed By: MD Mcarthur Ahmad F\.br\Date and Time Signed: 07/26/24 10:51 [id number] NoteProgress Note-Physician Patient: KASSIE CRAWFORD Age: 24 years Sex: Female : 2000 Associated Diagnoses: None Author: MD Mcarthur Ahmad F Chief Complaint Intrauterine Health Status Allergies: Allergic Reactions (All) No Known Allergies Current medications.Problem list: All Problems Acid reflux / SNOMED CT 6412877634 / Confirmed Age mother conceived under 17 / Patient Care / Confirmed Previous uterine scarring / Patient Care / Confirmed BMI 30+ - obesity / SNOMED CT 1196947870 / Confirmed History of / SNOMED CT 709790894 / Confirmed Resolved: / SNOMED CT 995025543 Resolved: Arthritis / SNOMED CT 8071347 Resolved: Yeast / SNOMED CT 840009149 Resolved: / SNOMED CT 503276459 Resolved: / SNOMED CT 411673012 Resolved: / SNOMED CT 048763549 Resolved: / SNOMED CT 870028856 Resolved: / SNOMED CT 279941479 Resolved: / SNOMED CT 023554711 Review of Systems Respiratory: Negative. Cardiovascular: Negative. [...] site, safety procedures followed. Performed by: MD Mcarthur Ahmad F. Informed consent: signed by patient. Indication: Active [...] subcutaneously), approach (midline) midline, needle (17 ga touhy) (placed via loss of resistance technique, At _L4- L5_ interspace.), aspiration (attempted for blood and CSF) Aspiration negative for blood and CSF, injectant (test dose consisting of 3 ml of 1.5% lodocaine with 1:200,000 epi) (test dose given, Epidural catheter inserted and secured at a depth of _11_ cm at skin., Test dose negative). [place] [employer] Anesthesiologists (ASA) physical status classification: [...] a PCEA bolus dose of 5cc q30min PRN.[facility] Comment on above:Result Comment: Electronically Signed By: MD Blue, Chandu Kahn\.br\Date and Time Signed: 07/26/24 10:50 [id number] NoteHistory and Physical HOSPITAL REGULATIONS: All Positive [...] see records for details. You Wilkerson M.D. ks Dictated: 07/14/2024 [id number] Transcribed: 07/14/2024[facility] HospitalComment on above:Result Comment: Electronically Signed By: You Wilkerson MD\.br\Date and Time Signed: 07/16/24 08:54 [id number] NoteDischarge Instructions Given Worsening The following Patient Education Materials have been given to the patient: ~~ [facility] Evaluation + Plan note Extracted from:Title:OB Inpatient Progress noteAuthor:You Wilkerson MD DDate:07/13/24 Impression and Plan Plan Routine care. Course: Progressing as expected.[facility] [id number] NoteProgress Note-Physician Patient: KASSIE CRAWFORD Age: 24 [...] Plan Plan Routine care. Course: Progressing as expected.[facility] HospitalComment on above: Result Comment: Electronically Signed By: You Wilkerson MD\.br\Date and Time Signed: 07/13/24 08:29 [id number] NoteGetWell Learning Participants Patient Nely Understands Education Yes GetWell Education Video How to Swaddle SafelyDayton [facility] Hospital11-11-2024 NoteGetWell Understands Education Yes GetWell Education Video Caring for Yourself After Vaginal Delivery [facility]Well Learning Participants [facility]11-[facility]-2024 NoteGetWell Learning Participants Patient GetWell Understands Education Yes GetWell Education Video Caring for Your : Umbilical CordDayton Children'S Hospital11-11-2024 NoteGetWell Learning Participants Patient GetWell Understands Education Yes GetWell Education Video Caring for Your [place]: SleepingDayton Children'S Hospital11-11-2024 Note GetWell Education Video Bathing Your Baby GetWell Learning Participants Patient GetWell Understands Education [facility]11-11-2024 NoteGetWell Understands Education Yes GetWell Education Video Caring for Your : Feeding GetWell Learning Participants [facility]11-11-2024 NoteGetWell Learning Participants Patient GetWell Understands Education Yes GetWell Education Video Caring for Your : DiapersDayton [facility]11-11-2024 Note GetWell Education Video Infant CPR [employer]Well Learning Participants Patient GetWell Understands Education [facility]11-11-2024 NoteGetWell Understands Education Yes GetWell Education Video Using a Rubber Bulb to Clear a Baby's Nose GetWell Learning Participants [facility]11-11-2024 NoteGetWell Understands Education Yes GetWell Education Video Jaundice in Newborns [employer] Learning Participants [facility]11-11-2024 NoteGetWell Education Video Here's Help: When Your Is Sick GetWell Learning Participants Patient GetWell Understands Education [facility]11-11-2024 NoteGetWell Understands Education GetWell Education Video After Your : The First 12 Weeks GetWell Learning ParticipantsDayton Children'S Hospital11-11-2024 NoteGetWell Learning Participants GetWell Understands Education GetWell Education Video Understanding DepressionDayton Children'S Hospital11-11-2024 Note GetWell Learning Participants Patient GetWell Understands Education Yes GetWell Education Video How to Calm a Crying BabyDayton Children'S Hospital11-11-2024 NoteGetWell Education Video Avoiding Infections in the Hospital GetWell Learning Participants Patient GetWell Understands Education [facility]11-11-2024 NoteGetWell Understands Education Yes GetWell Education Video Well-Baby Visits to the Doctor [employer] Learning Participants [facility]11-08-2024 Hospital Discharge instructions Follow Up Care 07/09/2024 11:21:21 With:Dr. Wilkerson [phone] Address:Unknown When:6 weeks Comments:Call for any problems.Call Dr if fever>100.5 F, heavy bleedingCall today to schedule your followupLactation Support Group first Friday of the monthNothing in the vagina for 6 weeks [facility] 11-06-2024 Hospital Discharge instructions Follow Up Care 07/07/2024 12:27:48 With:[facility] Doctor at [facility] [phone] Address:Unknown When:07/12/2024 06:30:00 Comments:Call for any problems.CALL OB DEPT @ 0513 FRIDAY MORNING TO ASSURE BED AVAILABILITY [facility] 11-06-2024 NoteDischarge Instructions Given Worsening The following Patient Education Materials have been given to the patient: ~~ EducationMaterialDayton [facility]11-06-2024 Evaluation + Plan note Diagnostic Tests Pending * Urine Culture 07/07/24 [facility] 10-30-2024 Evaluation + Plan note Diagnostic Tests Pending * Group B Streptococcus colonization by PCR 06/30/24 [facility] 08-20-2024 History of Present illness Narrative* Shemar Lyons, [employer] - 04/20/2024 1:25 PM EDT Images from [...] patient. Next Visit: PRN documented in this encounterCass Medical [id number] Evaluation + Plan note Diagnostic Tests Pending * RPR with Conf Rfx 04/17/24 * Rubella Antibody IgG 04/17/24 * Urine Culture 04/17/24 * Hepatitis B Surface Antigen 04/17/24 [facility] 07-23-2024 Evaluation + Plan note Diagnostic Tests Pending * RPR with Conf Rfx 03/23/24 * Rubella Antibody IgG 03/23/24 * Hepatitis B Surface Antigen 03/23/24 [facility]06-17-2024 Evaluation + Plan note Diagnostic Tests Pending * Urine Culture 02/16/24 [facility]04-04-2024 Evaluation + Plan noteExtracted from: Title:ED NoteAuthor:Melissa Yates DO ADate:12/04/23 Migraine (G43.909: Migraine, unspecified, not intractable, without [...] q6hr, # 12 tab(s), Refills(s) 0, Pharmacy: [facility]/pharmacy #[id number], 170, cm, 12/03/23 22:08:00 EDT, Height/Length Dosing, 134.5, kg, 12/03/23 22:08:00 EDT, Weight Dosing Sodium Chloride 0.9% intravenous solution 1,000 mL, 1,000 mL, IV, 983.61 mL/hr, for 30 day(s), Stopdate 01/02/24 22:18:00 EDT, STAT, Start date 12/03/23 22:19:00 EDT, 61 minute(s), Total volume (mL): 1,000, 134.5 kg, 2.52, m2 [facility]04-04-2024 Hospital Discharge instructions Patient Education 12/04/2023 00:16:48 Migraine Headache, Iwhk-sd-Lxtc Migraine Headache A migraine headache is a [...] Follow these instructions at home: Medicines Take hgvy-ldr-lnewlzd and prescription medicines only as told by your doctor. Ask your doctor if the medicine prescribed to you: ?Requires you to avoid driving or using heavy machinery. ?Can cause trouble pooping (constipation). You may need to take these steps to prevent or treat trouble pooping: ?Drink enough fluid to keep your pee (urine) pale yellow. ?Take qrdq-mhc-kumnyxs or prescription medicines. ?Eat foods that are [...] provider. Document Revised: 12/10/2019 Document Reviewed: 09/30/2019 [employer] Patient Education 2022 Datavail. 12/04/2023 00:16:48 Nausea and Vomiting, Adult, Gsij-ap-Upbo Nausea and Vomiting, Adult Nausea is feeling [...] fruit juice). ?Low-calorie sports drinks. Eat bland, vbdq-pl-xmedpr foods in small amounts as you are able, such as: ?Bananas. ?Applesauce. ?Rice. ?Low-fat (lean) meats. ?[place]. ?Crackers. Avoid drinking fluids that have a lot of sugar or caffeine in them. This includes energy drinks, sports drinks, and soda. Avoid alcohol. Avoid spicy or fatty foods. General instructions Take nxod-mej-jxkpkfz and prescription medicines only as told by your doctor. Drink enough fluid to keep your pee (urine) pale yellow. Wash your hands often with soap and water for at least 20 seconds. If you cannot use soap and water, use hand territory sales executive. Make sure that everyone in your home [...] your doctor about eating and drinking. Take bmve-fzx-zpajkif and prescription medicines only as told by your doctor. Contact your doctor if your symptoms get worse or you have new symptoms. Keep all follow-up visits. This information is not intended to replace advice given to you by your health care provider. Make sure you discuss any questions you have with your health care provider. Document Revised: 02/22/2022 Document Reviewed: 02/22/2022 [employer] Patient Education 2022 Datavail. Follow Up Care 12/03/2023 22:01:10 With:TUAN HAAS Address: [address] [place], [place] [id number] Business (1) When:12/06/2023 Comments:You can use the Reglan every 8 hours as needed for nausea or vomiting or headache. Please follow-upwith your primary care doctor next 2 to 3 days for further evaluation and management. Return to theED for any new or worsening symptoms. [facility]02-04-2024 Evaluation + Plan noteExtracted from: Title:ED NoteAuthor:[place]ota, Jose HDate:10/05/23 1. Diarrhea (R19.7: Diarrhea , unspecified) 2. Dysuria (R30.0: Dysuria) Orders: Clostridium difficile by PCR Clostridium Difficile PCR Enteric Panel by PCR U Beta Hcg Qual UA With Cult Reflex [facility]02-04-2024 Hospital Discharge instructions Patient Education 10/05/2023 10:51:58 [...] health care provider. Replacing nutrients Eat bland, pgco-ar-icgeky foods in small amounts as you are [...] provider. Document Revised: 11/08/2022 Document Reviewed: 10/03/2020 [employer] Patient Education 2022 [employer] 10/05/2023 10:51:58 Dysuria Dysuria Dysuria is pain [...] Follow these instructions at home: Medicines Take qwqm-uzq-hfoekeh and prescription medicines only as told by [...] provider. Document Revised: 03/30/2021 Document Reviewed: 03/30/2021 [employer] Patient Education 2022 Datavail. 10/05/2023 10:51:58 Diarrhea, Adult Diarrhea, Adult Diarrhea [...] oral rehydration solution (ORS). This is an bnjb-owr-pnkibgc medicine that helps return your body to [...] drinks, sports drinks, and soda. Eat bland, jaeg-ny-ayhupo foods in small amounts as you are able. These foods include bananas, applesauce, rice, lean meats, toast, and crackers. Avoid alcohol. Avoid spicy or fatty foods. Medicines Take kjcx-ldf-viuzqqc and prescription medicines only as told by your health care provider. If you were prescribed an antibiotic medicine, take it as told by your health care provider. Do notstop using the antibiotic even if you start to feel better. General instructions Wash your hands often using soap and water. If soap and water are not available, use a hand territory sales executive. Others in the household should wash their [...] soap and water are not available, usehand territory sales executive. Contact a health care provider if your diarrhea gets worse or you have new symptoms. Get help right away if you have signs of dehydration. This information is not intended to replace advice given to you by your health care provider. Make sure you discuss any questions you have with your health care provider. Document Revised: 11/08/2022 Document Reviewed: 02/27/2022 [employer] Patient Education 2022 Datavail. Follow Up Care 10/05/2023 07:45:06 With:TUAN HAAS Address: [address] [place], [place] [id number]- Business (1) When:10/08/2023 10:38:44 Comments:Take Imodium malo-xlq-sfyiypu as instructed. Return to the emergency room if your diarrhea gets worse, blood in diarrhea, fever or any new symptoms. [facility]11-06-2023 Evaluation + Plan note Diagnostic Tests Pending * PAP [id number] 07/07/23 [facility]10-27-2023 Evaluation note* Encounter Date Diagnosis Assessment Notes Treatment Notes Treatment Clinical Notes Jun, GERD (gastroesophageal reflux di sease) (ICD-10 - K21.9) [employer] Other [id number] NoteHOSPITAL REGULATIONS: All Positive and Important Negative [...] pound infant. Please see records for details. Nakul Swartz Dictated: 05/29/2023 [id number] Transcribed: 05/29/2023[facility] HospitalComment on above:Result Comment: Electronically Signed By: You Wilkerson MD\.br\Date and Time Signed: 05/30/23 09:05 [id number] NoteDATE OF DISCHARGE: 05/29/2023 The patient is [...] progesterone as well aslarge for gestational age and mild anemia. Intrapartum Course: Vaginal after , nuchal cord was reduced x1, productive of an 8 pound 7 ounce female infant with Apgars of eight and nine. The patient with spinal tap and spinal headache. Course: Patient required management of a spinal headache by Anesthesia with blood patch,resolved by day three. You Wilkerson M.D. lr Dictated: 05/29/2023 [id number] Transcribed: 05/29/2023[facility] HospitalComment on above:Result Comment: Electronically Signed By: You Wilkerson MD\.br\Date and Time Signed: 05/30/23 09:04 [id number] Evaluation + Plan noteExtracted from:Title:OB Inpatient Progress noteAuthor:You Wilkerson MD DDate:05/29/23 Impression and Plan Plan Routine care. Course: Progressing as expected. pt has minimal REN this am will discharge Extracted from:Title:ANES Post-Labor EpiduralAuthor:Pacheco Min Jr., DO GDate: 05/28/23 Plan Transfer/Discharge: Stable for discharge from anesthetic standpoint.. Extracted from:Title:Epidural Blood PatchAuthor:Pacheco Min Jr., DO GDate: 05/28/23 Patient: KASSIE CRAWFORD Age: 23 years Sex: [...] The epidural space was encountered as demonstrated bya loss of resistance. A local company intermodal truck driver then james 20cc of the patient's blood with sterile technique from the patient's right antecubital region. The blood thus drawn was passed sterilely to me and I subsequently injected 13cc of the blood into the epidural space, at which time the patient reported a sensation of pressurein the low back. The needle was withdrawn and a bandage was placed over the operative site. The patient was encouraged to return to the supine position and received IV fluid. The patient tolerated the procedure well..Addendum by Pacheco Min Jr., DO on May 28, 2023 9:10 EDTCorrected note type to operative report Extracted from:Title:OB Inpatient Progress noteAuthor:You Wilkerson MD DDate:05/27/23 Impression and Plan Plan Routine care. Course: Progressing as expected. some c/o REN consistent with spinal REN anesthesia aware and managing Extracted from:Title:L&D Epidural noteAuthor:Pacheco Min Jr., DO GDate:05/26/23 Patient: KASSIE CRAWFORD Age: 23 years Sex: Female : 2000 Associated Diagnoses: None Author: Pacheco Min Jr., DO Chief Complaint Intrauterine Health Status Allergies: Allergic Reactions (All) No Known Allergies Current medications.Problem list: All Problems Acid reflux / SNOMED CT 3629193038 / Confirmed Age mother conceived under 17 / Patient Care / Confirmed History of / SNOMED CT 501050091 / Confirmed / SNOMED CT 883701978 / Confirmed Resolved: Arthritis / SNOMED CT 3452447 Resolved: / SNOMED CT 097775162 Resolved: / SNOMED CT 281801346 Resolved: / SNOMED CT 556037837 Resolved: / SNOMED CT 559748435 Resolved: / SNOMED CT 608188859 Resolved: Yeast / SNOMED CT 466648990 Review of Systems Respiratory: Negative. Cardiovascular: Negative. [...] before the epidural was attempted) (lidocaine without epinephrine,3 cc injected subcutaneously), approach (midline), needle (17 ga touhy) (placed via loss of resistance technique, At _L4-L5_ interspace.), aspiration (cerebral spinal fluid, not blood), injectant (test dose consisting of 3 ml of 1.5% lodocaine with 1:200,000 epi) (test dose given, Epidural catheterinserted and secured at a depth of 12 cm at skin.). Procedure tolerated: fairly. Complications: paresthesia, Negative heme, CSF return noted, and response to test dose: rapid onsetof weakness, drop in blood pressure.. Patient BP responded well to ephedrine dosing. Additional fluids ordered. Assuming intrathecal catheter.. [employer] Epidural Medications Administered: Bolus dose consisted of 100 mcg of fentanyl (2 ml) at 1015. Awaiting return of patient sensation prior to starting epidural infusion.Addendum by Pacheco Min Jr., DO on May 26, 2023 10:38 EDT Nursing instructed to leave catheter in position for at least 24 hours before removal.[facility]09-28-2023 NoteThe following Patient Education Materials have been given to the patient: [facility]09-17-20[facility] Hospital Discharge instructions Follow Up Care 05/18/2023 19:36:37 With:You Wilkerson Address: [address], [place] [address] Business (1) When:05/19/2023 Comments:Call for any problems.Call physician for heavy vaginal bleedingReturn for contractions closer, longer, harderReturn for decreased movementReturn if ruptured membranes or vaginal bleeding [facility]09-17-2023 NoteThe following Patient Education Materials have been given to the patient: [facility] Discharge instructions Follow Up Care 05/03/2023 00:24:31 With:Dr. Wilkerson [phone] Address:Unknown When:6 weeks Comments:Call for any problems. [facility]09-01-2023 Hospital Discharge instructions Patient Education 05/02/2023 16:35:42 [...] provider. Document Revised: 04/03/2022 Document Reviewed: 04/03/2022 [employer] Patient Education 2022 [employer] Follow Up Care 05/02/2023 15:52:01 With:oYu Wilkerson Address: [facility] [address], [address] [address] [facility] (1) When:05/12/2023 [facility]09-01-2023 NoteThe following Patient Education Materials have been given to the patient: EducationMaterialDay[facility]07-14-2023 Evaluation + Plan note Diagnostic Tests Pending * RPR with Conf Rfx 03/14/23 [facility]05-03-2023 Hospital Discharge instructions Patient Education 01/01/2023 12:44:21 [...] your health care provider. Take or apply hwpf-bin-jeoevtz and prescription medicines only as told by [...] provider. Document Revised: 11/28/2021 Document Reviewed: 11/28/2021 [employer] Patient Education 2022 Datavail. Follow Up Care 01/01/2023 12:18:51 With:TAUN HAAS DO, FAM Address: [address] [place] [address]- When: Unknown [facility] 02-20-2023 Evaluation + Plan note Diagnostic Tests Pending * Chlamydia/Gonococcus, SAMIR 10/21/22 [facility]02-11-2023 Evaluation + Plan noteExtracted from: Title:ED NoteAuthor:Javed BONILLA, Hipolito WangDate:10/12/22 Upper respiratory infection, viral (J06.9: Acute upper respiratory infection, unspecified) Orders: XR Chest 2 Views [facility]02-11-2023 Hospital Discharge instructions Patient Education 10/12/2022 10:59:55 Upper Respiratory Infection, Adult, Tnhs-rm-Dynw Upper Respiratory Infection, Adult An upper respiratory [...] and other clear broths. General instructions Take cveg-mba-nmobdkj and prescription medicines only as told by [...] not have soap and water, use hand territory sales executive. Avoid touching your mouth, face, eyes, or [...] get better within 7 10 days. Take xwgz-uxv-rtmpiwb and prescription medicines only as told by your doctor. This information is not intended to replace advice given to you by your health care provider. Make sure you discuss any questions you have with your health care provider. Document Released: 02/03/2009 Document Revised: 08/26/2019 Document Reviewed: 04/10/2018 [employer] Patient Education [employer] Follow Up Care 10/12/2022 10:06:40 With:TUAN HAAS Address: [address] [place] [address] [facility] [facility] (1) When:10/15/2022 10:37:05 Comments:Follow-up with your primary care provider in 3 to 5 days. If symptoms worsen, do not improve, or new symptoms arise please report back to emergency department for further evaluation. [facility]01-30-2023 Evaluation + Plan note Diagnostic Tests Pending * Rubella Antibody IgG 09/30/22 * RPR with Conf Rfx 09/30/22 * Hepatitis B Surface Antigen 09/30/22 * Urine Culture 09/30/22 [facility]01-16-2023 Evaluation note* Encounter Date Diagnosis Assessment Notes Treatment Notes Treatment Clinical Notes Sep, Chest pain, unspecified type (IC D-10 - R07.9) Sep,Hip pain (ICD-10 - M25.559) The patient complains of bilateral hip pain that is worse upon rising in the morning and at the endof the day. Upon examination the patient appears to have good range of motion and normal reflexes, she does report lower back pain across the bilateral lumbar region upon palpation. Blood work ordered to rule out rheumatological abnormalities. Sep,utaneous abscess of face (ICD-10 - L02.01) Blood work ordered and the above medication and instructions provided. Sep,Hyperglycemia (ICD-10 - R73.9) Sep,History of anemia (ICD-10 - Z86.2) Blood work ordered to re-evlaute. Sep,Screening for cardiovascular condition (ICD-10 - Z13.6) [employer] Other 10-17-2022 Evaluation + Plan note Diagnostic Tests Pending * Urine Culture 06/17/22 * HIV Screen 4th Generation wRfx 06/17/22 [facility]10-17-2022 Evaluation note* Encounter Date Diagnosis Assessment Notes Treatment Notes Treatment Clinical Notes Jun, Wrist pain, right (ICD-10 - M25. 531) [employer] Other 10-16-2022 Hospital Discharge instructions Patient Education [...] Medicines to relieve symptoms. These can include qxys-vxb-oqhxcye medicine for pain and fever, medicines for [...] Follow these instructions at home: Medicines Take fiua-jkf-yorwavh and prescription medicines only as told by [...] and water are not available, use hand territory sales executive. Avoid close contact with friends and family [...] 12/27/2016 Document Revised: 07/31/2018 Document Reviewed: 12/27/2016 [employer] Patient Education 2020 [employer]. 06/16/2022 18:33:39 First Trimester of First Trimester [...] Move your legs often if you must adolescent coordinator one placefor a long time. Avoid [...] disease or chickenpox. You are exposed to Hebrew measles (rubella) and have never had it. [...] 08/12/2002 Document Revised: 07/31/2018 Document Reviewed: 07/30/2017 [employer] Patient Education 2020 [employer] Follow Up Care 06/16/2022 14:26:03 With:You Wilkerson Address: [address] [place] [address]- Business (1) When:06/19/2022 18:27:42 Comments:Follow-up with Dr. Wilkerson as instructed. Return to the emergency room if your abdominal pain recurs, vaginal bleeding or any new symptoms. With:TUAN WALDO Address: [address] [place] [address]- Business (1) When:06/19/2022 18:27:37 [facility]10-16-2022 Evaluation + Plan note Diagnostic Tests Pending * Group A Strep by PCR 06/16/22 [facility]10-13-2022 Evaluation note* Encounter Date Diagnosis Assessment Notes Treatment Notes Treatment Clinical Notes Jun, Abnormal bleeding time (ICD-10 - R79.1) Blood work reviewed with the patient, she does not have the Factor V gene mutation. PTT is still elevated at 37 but is slightly lower from her April result of 38. She Jun,ight wrist pain (ICD-10 - M25.531) X-ray reviewed [...] Galicia for further treatment. Patient is agreeable. [employer] Other 08-03-2022 Evaluation note* Encounter Date Diagnosis Assessment Notes Treatment Notes Treatment Clinical Notes Apr, Wrist pain, right (ICD-10 - M25. 531) Patient reports right wrist pain with some weakness when lifing heavy objects. I do want to get an Xray today and we will follow up with her to go over results. In the meantime I am going to give herjust a few Ultram #28 to try with the understanding she is not going to get any refill. I will refill ibuprofen as well. Xray or the right wrist/ hand ordered. Apr,GERD (gastroesophageal reflux disease) (ICD-10 - K21.9) refill provided Apr,Miscarriage within last 12 months (ICD-10 - Z87.59) Patient is doing okay s/p the miscarriage. She is following with Dr. Wilkerson. He did do some hormoneand genetic testing done by this physician. Finding did show some abnormality, specifically elevated PTT. Patient denies any family hx of bleeding/clotting disorder. Lab work will be ordered to confirm Apr,bnormal bleeding time (ICD-10 - R79.1) Blood work ordered to rule out abnormalities. [employer] Other [id number] Evaluation + Plan note Diagnostic Tests Pending * Factor II, DNA Analysis 03/20/22 * Factor V Leiden 03/20/22 * MTHFR Thermolabile Variant, DNA Analysis 03/20/22 * MARK w/Reflex if POS 03/20/22 * Anticardiolipin Antibodies IgG, IgA & IgM 03/20/22 [facility]07-11-2022 Hospital Discharge instructions Patient Education 03/10/2022 22:20:58 [...] Follow these instructions at home: Medicines Take vzuj-yka-vzuspmr and prescription medicines only as told by [...] important. Where to find more information [employer]: www.acog.org [place] [...] 02/11/2002 Document Revised: 12/10/2019 Document Reviewed: 09/23/2017 [employer] Patient Education 2020 [employer] Follow Up Care 03/10/2022 15:02:36 With:You Wilkerson Address: [facility] [address], [address] [address] Business (1) When:7 to 10 days Comments:follow up in [address] Davis for fever > 100.5 FCall physician for heavy vaginal bleedingCall for severe abdominal painCall for any problems.Please call if you need to rescheduleMay take 600mg Motrin every 6 hours as needed for uterine cramping [facility]06-07-2022 Hospital Discharge instructions Patient Education 02/05/2022 21:47:03 [...] to fight infection (immunocompromised). Live in a assisted or long-term care facility. Have a long-term [...] managed at home with rest, fluids, and schm-ias-vnsurmd medicines. Treatment for a serious infection usually [...] are safe for you. General instructions Take uxxb-edj-cyeelqx and prescription medicines only as told by [...] water are not available, usean alcohol-based hand territory sales executive. ?Avoid touching your mouth, face, eyes, or [...] water are not available, use alcohol-based hand territory sales executive. Stay away from other members of your [...] have a weak immunity, live in a assisted, or have chronic disease. There is no [...] 09/23/2019 Document Revised: 01/13/2020 Document Reviewed: 09/23/2019 [employer] Patient Education 2020 [employer]. Follow Up Care 02/05/2022 18:21:01 With:TUAN HAAS Address: [address] [place], [place] [id number] Business (1) When:Within 3 Day(s) [facility]06-07-2022 Evaluation + Plan noteExtracted from: Title:ED NoteAuthor:Iván Rodriguez DODate:02/05/22 COVID (U07.1: COVID-19) Orders: ondansetron, 4 mg = 2 mL, Injection, IV Push, Once, Stop date 02/05/22 21:24:00 EDT, STAT, Start date 02/05/22 21:24:00 EDT, 02/05/22 21:24:00 EDT ondansetron, 4 mg = 1 tab(s), Oral, q8hr, # 12 tab(s), Refills(s) 0, Pharmacy: [id number], 168, cm, 02/05/22 18:27:00 EDT, Height/Length Dosing, 114, kg, 02/05/22 18:27:00 EDT, Weight Dosing potassium bicarbonate, 25 mEq = 1 tab(s), Tab-Eff, Oral, Once, Stop date 02/05/22 19:54:00 EDT, STAT, Start date 02/05/22 19:54:00 EDT, 02/05/22 19:54:00 EDT promethazine, 12.5 mg = 1 supp, Rectal, q8hr, # 6 EA, Refills(s) 0, Pharmacy: [facility] #[id number], 168, cm, 02/05/22 18:27:00 EDT, Height/Length Dosing, 114, kg, 02/05/22 18:27:00 EDT, WeightDosing Influenza A&B Ag Rapid COVID Antigen ([facility] [place]) [facility]05-16-2022 Evaluation + Plan note Diagnostic Tests Pending * Rubella Antibody IgG 01/14/22 * RPR with Conf Rfx 01/14/22 * Hepatitis B Surface Antigen 01/14/22 [facility]05-05-2022 Evaluation + Plan note Diagnostic Tests Pending * Urine Culture 01/03/22 [facility]01-11-2022 Evaluation note* Encounter Date Diagnosis Assessment Notes Treatment Notes Treatment Clinical Notes Sep, Sinus congestion (ICD-10 - R09.8 1) In house covid and flu test was negative. Patient is aware. Sep,ough (ICD-10 - R05.9) In house covif and flu test was negative. Patient is aware. [employer] Other 10-29-2021 Evaluation note* Encounter Date Diagnosis Assessment Notes Treatment Notes Treatment Clinical Notes Jun, Sore throat (ICD-10 - J02.9) In house strep test performed with negative results. Jun,onjunctivitis (ICD-10 - H10.9) Patient presents with right eye redness, this does itch. Patient states all her children have this as well. Above drops precribed. Jun,URI (upper respiratory infection) (ICD-10 - J06.9) Patient was exposed to covid two days ago. Patient has had covid within the past 2 months. Above testing ordered. I did prescribe the above medication and encouraged pt to increase fluid intake, throat lozenges or gargle with mouth wash as needed. Pt is to also take OTC pain medication and fever reducers as needed. [employer] Other 10-28-2021 Evaluation note* Encounter Date Diagnosis Assessment Notes Treatment Notes Treatment Clinical Notes Jun, Contact with and (valencia spected) exposure to other viral communicable diseases (ICD-10 - Z20.828) Even though COVID RAPID test is NEGATIVE, I am highly suspicious at this time you may be positive due to the symptoms. Recommend patient follow Quarantine guidelines until you follow up with PCP.. Recommend OTC medication such as Mucinex, Sea salt nasal spray, Cepecol, Tylenol, Zyrtec, as they can help with symptoms Jun,Other Additional time spent conducting pre-visit phone call, screening for symptoms, instructions on social distancing, application and removal of PPE, and cleaning of examination room, equipment and supplies was preformed. Patient education given for testing methodology and results. Patient care instructions given in writting by [facility] document. Additional time spent conducting pre-visit phone call, screening for symptoms, instructions on social distancing, application and removal of PPE, and cleaning of examination room, equipment and supplies was preformed. Patient education given for testing methodology and results. Patient care instructions given in writting by [facility] document. [employer] Other 02-01-2017 History general Narrative - Reported* Type Description Date Medical History Childbirth x1 Oct 2016, x1 Nov 019 Medical HistoryC-section 07/17/2018Medical HistoryCovid-19 positive 04/2021 Surgical Historyc-section10/27/16Hospitalization Historysee above [employer] Other 02-01-2017 History general Narrative - Reported* Type Description Date Medical History Childbirth x1 Oct 2016, x1 Nov 2 019 Medical HistoryC-section 07/17/2018Medical HistoryCovid-19 positive 04/2021 Medical Ttnzzlh7603/27/2022 Miscarriage, naturally passed, following with Dr. Jarvis Historyc-section10/27/16Hospitalization Historysee above [employer] Other Evaluation noteNo InformationNort [employer] Other evaluation noteNo assessment information available [facility] Work Phone: Evaluation note* Diagnosis Acne vulgaris Other acne Other seborrheic dermatitis Melanocytic nevus of scalp Benign neoplasm of scalp and skin of neck Keratosis pilaris Other specified congenital anomaly of skin documented in this encounter [facility]* Diagnosis Cervical adenopathy- Primary Enlargement of lymph nodes documented in this encounter [facility]* Diagnosis Cervical adenopathy- Primary Enlargement of lymph nodes documented in this encounter [facility]* Diagnosis Pain of right upper extremity- Primary documented in this encounter [facility]* Diagnosis Onset Date Resolution Status Admit Date Hypertension acuteSept2024 10:27amIron deficiency anemiaacuteSept2024 10:27amMiscarriageacuteSept2024 10:27amNasal sinus congestionacute May 26, 2025 10:27amNauseaacuteSept2024 10:27amPrediabetes acuteSept2024 10:27am [facility] Work Phone: History general N[facility]ative - [facility] Other Hospital course Narrative No data available for this section [facility] No data available for this section [facility] instructions[facility] Orders* Referral to ENT Location: None Selected [facility] Work Phone: Progress note No data available for this section [facility] for referral (narrative)No reason for referral information availableC[facility] Work Phone: Summary Purpose Family History No Family History Records Found Relationship Condition Age at Onset Recorded Date/T george grandparent Unknown Relationship Condition Age at Onset Recorded Date/T george grandparent Unknown motherHypertensionUnknownfatherHypertensionUnknown Advance Directives No Advanced Directives Records Found Advance Directive Response Recorded Date/ Time Advance Directives No May 5:13pm Advance Directive Response Recorded Date/ Time Advance Directives No May 4:13pm Advance Directive Response Recorded Date/ Time Advance Directives No August 03, 2024 9:03am Advance Directive Response Recorded Date/ Time Advance Directives No August 03, 2024 10:03am Chief Complaint and Reason for Visit Chief [...] planning October 11, 2024 9:04am hypertension October 11 9:04am Chief Complaint Admit Date L ear/ R neck pain and swelling August 04, 2024 10:45am R59.9 August 04, 2024 1 1:27am R59.0 September 06, 2024 2: 57pm boils September 09, 2024 2: 35pm 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, 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 1 month f/u October 11, 2024 9:04am Right Posterior Lymph Node October 4:42pm Chief Complaint Admit Date congestion/sinus May 26, 2025 10:27am Reason for Visit Admit Date Hypertension May 26, 2025 10:27am Iron deficiency anemia May 26 10:27am Miscarriage May 26, 2025 10:27am Nasal sinus congestion May 26 10:27am Nausea May 26, 2025 10:27am Prediabetes May 26, 2025 10:27am Chief Complaint Admit Date congestion/sinus May 26, 2025 10:27am Elevated BP/ new Rx started Friday 11:06am Reason for Visit Admit Date Acute sinusitis May 26, 2025 10:27am Hypertension May 26, 2025 10:27am Iron deficiency anemia May 26, 025 10:27am Miscarriage May 26, 2025 10:27am Nausea May 26, 2025 10:27am Prediabetes May 26, 2025 10:27am BMI 45.0-49.9, adult July 06, 2025 11:06am Hypertension July 06, 2025 1 1:06am Reason for Referral Reason 06/20/22 @ 7:30am right wrist pain; potential TFCC injury per Dr. Dickerson Diagnosis 1 Right wrist pain (M2 5.531) Referral Organization [facility] Referring Provider First Name Tuan Referring Provider Last Name Waldo Referring Provider Specialty Family Prac emmett Referred Organization [facility] Referred Provider Ming Galicia Referred Address [address],[address] Referred Provider Specialty Sport Medici ne Referral Priority Routine Referral Appointment Date 2022-06-20 General Notes Fore, Charmaine M 022 02:21:44 PM >Received today and sent P2P Charmaine Howard 06/17/2022 09:18:51 AM >Patient has been scheduled Additional Source Comments INFORMATION SOURCE (unrecogn ized section and content) DATE CREATED AUTHOR 07/08/2021 [facility] DATE CREATED AUTHOR AUTHOR'S ORGANIZ ATION 02/20/2024 [facility] DATE CREATED AUTHOR AUTHOR'S ORGANIZ ATION 03/26/2024 [facility] DATE CREATED AUTHOR AUTHOR'S ORGANIZ ATION 04/18/2024 [facility] DATE CREATED AUTHOR AUTHOR'S ORGANIZ ATION 04/19/2024 [facility] DATE CREATED AUTHOR AUTHOR'S ORGANIZ ATION 05/01/2024 [facility] DATE CREATED AUTHOR AUTHOR'S ORGANIZ ATION 07/02/2024 [facility] DATE CREATED AUTHOR AUTHOR'S ORGANIZ ATION 07/09/2024 [facility] DATE CREATED AUTHOR AUTHOR'S ORGANIZ ATION 07/12/2024 [facility] DATE CREATED AUTHOR AUTHOR'S ORGANIZ ATION 07/13/2024 [facility] DATE CREATED AUTHOR AUTHOR'S ORGANIZ ATION 07/17/2024 [facility] DATE CREATED AUTHOR AUTHOR'S ORGANIZ ATION 02/13/2025 [facility] DATE CREATED AUTHOR AUTHOR'S ORGANIZ ATION 03/21/2025 [facility] DATE CREATED AUTHOR AUTHOR'S ORGANIZ ATION 05/14/2025 [facility] DATE CREATED AUTHOR AUTHOR'S ORGANIZ ATION 05/21/2025 [facility] DATE CREATED AUTHOR AUTHOR'S ORGANIZ ATION 07/10/2025 [facility] REASON FOR VISIT (unrecogniz ed section and content) ReasonCommentsFollow-upReasonCommentsSwollen GlandsNew patient : enlarged lymph nodesSpecialtyDiagnoses / ProceduresReferred By ContactReferred To Contact Otolaryngology Diagnoses Localized enlarged lymph nodes Procedures ND OFFICE/OUTPATIENT NEW MODERATE MDM 45 MINUTES Tuan Haas MD [address] [place] [address] Phone: tel: fax: Herman Thomas, DO [address] [place] [address] Phone: tel: fax: Referral IDStatusReasonStart DateExpiration DateVisits RequestedVisits [id number] Arm and shoulder pain after lymph node biopsy Care Team (unrecognized sect ion and content) Team Status: Active Member Role Status More Haas DO Primary Care Provider Active Team Status: Active Member Role Status Dates Tuan Haas DO Primary Care Provider Active Sta rt: May 24, 2025 Kristieasad Wilsonjuan david Lopez , DOAttending ProviderActiveStart: May 24, 2025 Team Status: Inactive Member Role Status More Haas DO Primary Care Provider Active Sta rt: May 26, 2025 End: May 26, 2025Kybib Luevano , DOAttending ProviderActiveStart: May 26, 2025 End: May 26, 2025 Team Status: Inactive Member Role Status More Haas DO Primary Care Provider, Attending Provi april Active Team Status: Inactive Member Role Status More Haas DO Primary Care Provide r, Attending Provider Active Start: August 04, 2024 End: August 04, 2024 Team Status: Inactive Member Role Status More Haas DO Primary Care Provide r, Attending Provider Active Start: September 06, 2024 End: September 06, 2024 Team Status: Inactive Member Role Status More Haas DO Primary Care Provide r, Attending Provider Active Start: September 09, 2024 End: September 09, 2024 Team Status: Inactive Member Role Status More Haas DO Attending Provider Active Start: September 09, 2024 End: September 09, 2024 Team Status: Inactive Member Role Status More Haas DO Primary Care Provide r, Attending Provider Active Start: October 11, 2024 End: October 11, 2024Team MemberRelationshipSpecialtyStart DateEnd Date Tuan Haas MD [address] [place] [phone] PCP - General2 Herman Thomas DO [address] [place] [address] Otolaryngology2Team MemberRelationshipSpecialtyStart DateEnd Date Tuan Haas MD [address] [facility] [phone] PCP - General10/18/24 Herman Thomas DO [address] [place] [address] Otolarynlogy2Team MemberRelationshipSpecialtyStart DateEnd Date Tuan Haas MD [address] [facility] [place] [address] PCP General10/18/24 Herman Thomas DO [address] [place] [address] Otolarynlogy2 Team Status: Inactive Member Role Status Dates Tuan Haas DO Primary Care Provider Active Sta rt: October 19, 2024 End: October 19enjasahara Thomas DOAttending ProviderActiveStart: October 19, 2024 End: October 19, 2024Team MemberRelationshipSpecialtyStart DateEnd Date Tuan Haas DO PCP General2 Herman Thomas DO [address] [place] [address] Otolaryngolog10/18/24Team MemberRelationshipSpecialtyStart DateEnd Tuan Haas DO [facility] - General10/18/24 Herman Thomas DO [address] [place] [address] Otolaryngolog10/18/24 Team Status: Active Member Role/Relationship Status More Haas DO Primary Care Provider Active Team Status: Active Member Role/Relationship Status More Haas DO Primary Care Provider Active Sta rt: May 24, 2025 Kristie Lopez DOAttending ProviderActiveStart: May 24, 2025 Team Status: Inactive Member Role/Relationship Status More Haas DO Primary Care Provider Active Sta rt: May 26, 2025 End: May 26, 2025Richie Luevano DOAttending ProviderActiveStart: May 26, 2025 End: May 26, 2025 Team Status: Inactive Member Role/Relationship Status More Haas DO Primary Care Provider Active Sta rt: July 06, 2025 End: July 06rolando Haas DOAttending ProviderActiveStart: July 06, 2025 End: July 06, 2025 Team Status: Inactive Member Role/Relationship Status More Haas DO Primary Care Provider Active Sta rt: July 06, 2025 End: July 06, 2025Richie Luevano DOAttending ProviderActiveStart: July 06, 2025 End: July 06, 2025 Goals (unrecognized section and content) Goals may [...] BE BASED ON THE PRIMARY CLINICAL RECORDS. [facility]. provides no warranty or guarantee of the accuracy or completeness of information in this document.
--- OUTSIDE RECORDS SUMMARY | 2025-07-29 02:07 | XMS_ITS | Clinical Summary ---
Author Organization [facility] Address [address] [place] [address] Care Team Providers Care Customer Facilities Supervisor Name Role Phone Unavailable Primary Care Provider Unavailabl e Social History Tobacco UseTypesPacks/DayYears UsedDateSmoking Tobacco: Never Assessed CommentsUnknownSex and Gender InformationValueDate RecordedSex Assigned at Not on fileLegal ZkcAhhlhh79/30/2022 12:21 AM EDTGender IdentityNot on file Sexual OrientationNot on file Plan of Treatment Not on file
--- OUTSIDE RECORDS SUMMARY | 2025-07-29 02:07 | XMS_ITS | Patient Health Record ---
Author Organization [facility] Address [address] [address] Support Name Relationship Address Phone Jaylyn Crawford Guarantor Unknown Unavailab le Reason For Referral No Information Plan Of Treatment No Information Insurance Providers Payer Name Payer Address Payer Phone Subscriber Number Group Number Insured Name Patient Relationship to Insured Coverage Start Date Coverage End Date [employer] [address] [address] [place], [place] [address] [id number], AbagailSelf - patient is the insured
[2025-07-29] MEDS: PHENAZOPYRIDINE 100 MG TABLET PO (02:10)
[2025-07-29] MEDS: SULFAMETHOXAZOLE/TRIMETHOPRIM 800-160 MG TABLET 1 TAB PO (02:10)
--- NOTE | 2025-07-29 02:11 | ED.GENADUL1 ---
HPI HPI - General Adult General Chief complaint: Urogenital-Female Stated complaint: BURNING, NEEDS TO PEE, BUT CAN'T Time Seen by Provider: 07/29/25 01:50 Source: patient Mode of arrival: walk-in Limitations: no limitations History of Present Illness HPI narrative: Patient is a 25-year-old female presenting to the emergency department for concerns of UTI. Patient has been experiencing dysuria and increased urinary frequency over the last 2 days. She states she has had a UTI in the past, and Bactrim and Pyridium seem to help. She denies any flank pain. No nausea or vomiting. No fevers or chills. Her last menstrual cycle ended 2 weeks ago. She denies any other systemic symptoms. No history of kidney stones. Related Data Home Medications ?Medication ?Instructions ?Recorded ?Confirmed metoprolol succinate 25 mg 25 mg PO DAILY 07/29/25 07/29/25 tablet,extended release 24 hr norethindrone (contraceptive) 0.35 0.35 mg PO DAILY 07/29/25 07/29/25 mg tablet (Jencycla) olmesartan 20 mg tablet 20 mg PO DAILY 07/29/25 07/29/25 omeprazole 20 mg capsule,delayed 20 mg PO DAILY 07/29/25 07/29/25 release Previous Rx's ?Medication ?Instructions ?Recorded naproxen 500 mg tablet 500 mg PO Q12H PRN pain #20 tabs 08/07/24 prednisone 50 mg tablet 50 mg PO DAILY 5 days #5 tabs 08/07/24 phenazopyridine 100 mg tablet 100 mg PO Q8H 5 doses #5 tabs 07/29/25 (Pyridium) sulfamethoxazole 800 1 tab PO BID 5 days #10 tabs 07/29/25 mg-trimethoprim 160 mg tablet (Bactrim DS) Allergies Allergy/AdvReac Type Severity Reaction Status Date / Time No Known Drug Allergies Allergy Verified 07/29/25 01:29 Review of Systems ROS Status of ROS 10 or more systems reviewed and unremarkable except as noted in history and below PFSH PFSH Social History Little interest or pleasure in doing things: not at all Feeling down, depressed, or hopeless: not at all Exam Narrative Exam Narrative: CONSTITUTIONAL: Well-appearing, answering questions and following commands appropriately SKIN: Was warm and dry. EYES: Sclerae white. EARS, NOSE, THROAT: Moist oral mucosa. RESPIRATORY: Nonlabored respirations CARDIOVASCULAR: Normal rate and regular rhythm. There is no S3, S4, murmur, rub. GASTROINTESTINAL: Abdomen is nondistended. MUSCULOSKELETAL: No peripheral edema. NEUROLOGIC: Patient is awake and alert. Facies were symmetrical. Constitutional Vital Signs, click to edit/add: Last Vital Signs Temp 98 F 07/29/25 01:23 Pulse 92 H 07/29/25 01:23 Resp 16 07/29/25 01:23 BP 122/80 07/29/25 01:23 Pulse Ox 99 07/29/25 01:23 O2 Del Method Room Air 07/29/25 01:23 Course Vital Signs Vital signs: Vital Signs Temperature 98 F 07/29/25 01:23 Pulse Rate 92 H 07/29/25 01:23 Respiratory Rate 16 07/29/25 01:23 Blood Pressure 122/80 07/29/25 01:23 Pulse Oximetry 99 07/29/25 01:23 Oxygen Delivery Method Room Air 07/29/25 01:23 Temperature 98 F 07/29/25 01:23 Pulse Rate 92 H 07/29/25 01:23 Respiratory Rate 16 07/29/25 01:23 Blood Pressure 122/80 07/29/25 01:23 Pulse Oximetry 99 07/29/25 01:23 Oxygen Delivery Method Room Air 07/29/25 01:23 Medical Decision Making MDM Narrative Medical decision making narrative: Patient is a 25-year-old female presenting to the emergency department for 2-day history of dysuria and increased urinary frequency. Her vital signs are within normal limits. She is afebrile hemodynamically stable. Examination as noted above. Urinalysis was suggestive of UTI with greater than 100 WBCs, moderate leukocyte esterase, small bacteria. My clinical impression is that the patient symptoms are secondary to cystitis, UTI. No flank pain, fevers, nausea, or vomiting to suggest pyelonephritis or nephrolithiasis. Patient was given a dose of Bactrim DS and Pyridium while here in the ED. I do believe the patient is stable for discharge. They were instructed to follow up with her PCP as needed. Return precautions were given including any new or worsening symptoms. They were given a prescription for Bactrim DS twice daily x 5 days and Pyridium x 5 doses. Patient understands and agrees to the plan. FINAL IMPRESSION: #Acute cystitis DISPOSITION: Discharged home CONDITION: Good Lab Data Lab results reviewed: Yes I reviewed the patient's lab results Labs: Lab Results 07/29/25 Range/Units 01:25 Urine Color Lt. yellow (YELLOW) Urine Clarity Cloudy A (CLEAR) Urine pH 6.0 (5.0-9.0) Ur Specific Fellows 1.025 (1.005-1.025) Urine Protein Trace (NEG/TRACE) mg/dL Urine Glucose (UA) Negative (NEGATIVE) mg/dL Urine Ketones Negative (NEGATIVE) mg/dL Urine Occult Blood Large A (NEGATIVE) Urine Nitrite Negative (NEGATIVE) Urine Bilirubin Negative (NEGATIVE) Urine Urobilinogen 0.2 (0.2-1.0) EU/dL Ur Leukocyte Esterase Moderate A (NEGATIVE) Urine RBC 75-100 A (0-2) #/HPF Urine WBC >100 A (NONE SEEN) #/HPF Ur Squamous Epith Cells Moderate A (NONE/RARE) #/LPF Urine Crystals None seen (None Seen) #/HPF Urine Bacteria Small A (NONE SEEN) #/HPF Urine Casts None seen (NONE SEEN) #/LPF Urine Mucus None seen (NONE SEEN) Ur Culture Indicated? Yes-[facility] [place] Discharge Plan Discharge Chief Complaint: Urogenital-Female Clinical Impression: Urinary tract infection Patient Disposition: Home, Self-Care Time of Disposition Decision: 01:55 Condition: Good Mode of Transportation: Private Vehicle Prescriptions / Home Meds: New sulfamethoxazole-trimethoprim [Bactrim DS] 800-160 mg tablet 1 tab PO BID 5 Days Qty: 10 0RF phenazopyridine [Pyridium] 100 mg tablet 100 mg PO Q8H Qty: 5 0RF No Action prednisone 50 mg tablet 50 mg PO DAILY 5 Days Qty: 5 0RF naproxen 500 mg tablet 500 mg PO Q12H PRN (Reason: pain) Qty: 20 0RF metoprolol succinate 25 mg tablet extended release 24 hr 25 mg PO DAILY norethindrone (contraceptive) [Jencycla] 0.35 mg tablet 0.35 mg PO DAILY olmesartan 20 mg tablet 20 mg PO DAILY omeprazole 20 mg capsule,delayed release(DR/EC) 20 mg PO DAILY Print Language: Yoruba Instructions: Urinary Tract Infection in Women (ED) Referrals: Tuan Booker DO [Primary Care Provider] - 1 week
== END 2025-07-29 02:15 | disposition home or self-care (01) ==
LOC: ER 02:03
PROVIDERS: Emergency Provider Student in an Organized Health Care Education/Training Program; PCP Family Medicine
DX: N39.0 Urinary tract infection, site not specified (principal); R30.0 Dysuria; R35.0 Frequency of micturition
CPT/HCPCS: 81001; 87086; 87088; 87186; 99283